=== PATIENT | male | born 1960 | race Caucasian/White ===

== ENCOUNTER → 2016-12-05 | Outpatient (CLI) | payer BC ==
[2016-12-05 07:59] LABS: ALT 52 U/L (21-72); AST 31 U/L (17-59); Alkaline Phosphatase 174 U/L (38-126); Anion Gap 11 mmol/L; Blood Urea Nitrogen 20 mg/dL (9-20); Carbon Dioxide 28 mmol/L (22-30); Chloride 105 mmol/L (98-107); Cholesterol 115 mg/dL (<200); Glucose 219 mg/dL (74-99); HDL Cholesterol 37 mg/dL (40-60); Non-African American GFR(MDRD) >60 (>60 ml/min/1.73 sqM); Potassium 4.7 mmol/L (3.5-5.1); Sodium 144 mmol/L (137-145); Total Bilirubin 0.4 mg/dL (0.2-1.3); Total Protein 6.2 g/dL (6.3-8.2); Triglycerides 193 mg/dL (<150)
== END | disposition home or self-care (01) ==
LOC: LABWHC1 07:05
PROVIDERS: ATTEND Internal Medicine Gastroenterology
DX: R94.5 Abnormal results of liver function studies (principal)
CPT/HCPCS: 36415; 80053; 80061

== ENCOUNTER → 2017-01-19 | Outpatient (CLI) | payer BC ==
[2017-01-19 15:30] LABS: Basophils # (A) 0.1 k/uL (0-0.2); Basophils % (A) 1 %; CH 30.6; CHCM 32.3; Eosinophils # (A) 0.3 k/uL (0-0.7); Eosinophils % (A) 3 %; HCT 41.7 % (39.0-53.0); HGB 13.1 gm/dL (13.0-17.5); Luc # (Auto) 0.43; Luc % (Auto) 4; Lymphocytes # (A) 1.9 k/uL (1.0-4.8); Lymphocytes % (A) 19 %; MCHC 31.5 g/dL (31.0-37.0); MCV 95.2 fL (80.0-100.0); Mean Platelet Volume 7.7; Monocytes # (A) 0.4 k/uL (0-1.0); Monocytes % (A) 4 %; Neutrophils # (A) 6.9 k/uL (1.3-7.7); Neutrophils % (A) 69 %; RBC 4.38 m/uL (4.30-5.90); RDW 13.4 % (11.5-15.5); WBC (Perox) 10.24
[2017-01-19 15:41] LABS: Anion Gap 10 mmol/L; Blood Urea Nitrogen 23 mg/dL (9-20); Carbon Dioxide 28 mmol/L (22-30); Chloride 102 mmol/L (98-107); Non-African American GFR(MDRD) >60 (>60 ml/min/1.73 sqM); Potassium 4.8 mmol/L (3.5-5.1); Sodium 140 mmol/L (137-145)
[2017-01-19 15:48] LABS: Partial Thromboplastin Time 26.1 sec (22.0-30.0); Prothrombin Time 10.1 sec (9.0-12.0)
[2017-01-19 15:55] LABS: Appearance,Urine Clear (Clear); Bilirubin,Urine Negative (Negative); Glucose,Urine (UA) 4+ (Negative); Ketones,Urine Negative (Negative); Leukocyte Esterase,Urine Negative (Negative); Nitrite,Urine Negative (Negative); Protein,Urine Negative (Negative); UA Billing (MACRO vs. MICRO) CHEM; Urobilinogen,Urine <2.0 mg/dL (<2.0)
--- NOTE | 2017-01-19 15:57 | XR ---
EXAMINATION TYPE: XR chest 2V DATE OF EXAM: 01/19/2017 3:46 PM COMPARISON: 09/29/2016 TECHNIQUE: PA and lateral views submitted. HISTORY: Preop FINDINGS: The lungs are clear and there is no pneumothorax, pleural effusion, or focal pneumonia. Hyperinflati on compatible COPD and coarsened interstitial pattern compatible with chronic interstitial pulmonary fibrosis. Stimulator device appears to be present with multiple locations. Surgical clips right upper quadrant. IMPRESSION: 1. Extensive emphysematous changes and findings suggestive of pulmonary fibrosis.
== END | disposition home or self-care (01) ==
LOC: LABPAT 14:57
PROVIDERS: ATTEND Surgery
DX: Z01.818 Encounter for other preprocedural examination (principal); Z79.899 Other long term (current) drug therapy; E10.9 Type 1 diabetes mellitus without complications; J84.10 Pulmonary fibrosis, unspecified
CPT/HCPCS: 36415; 71020; 80051; 81003; 82565; 84520; 85025; 85610; 85730; 86850; 86900; 86901

== ENCOUNTER 2017-03-15 06:27 | Emergency (ER) | payer BC, MEDICARE ==
[2017-03-15 06:34] VITALS: BP 143/75; PULSE 105; RESP 18; TEMP 97
[2017-03-15] MEDS ORDERED: SULFAMETHOX-TMP 800-160MG 1 EACH TAB PO STA (06:51)
--- NOTE | 2017-03-15 07:00 | ED ---
General Adult HPI - General Chief complaint: Abdominal Pain Stated complaint: abd pain Time Seen by Provider: 03/15/17 06:42 Source: patient, family, RN notes reviewed Mode of arrival: wheelchair Limitations: no limitations - History of Present Illness Initial comments: Patient is a pleasant 56-year-old male presenting to the emergency Department with left scrotal pain. Patient states symptoms started a couple of days ago. Symptoms were somewhat worse today and then it started bleeding and draining this morning. No fever. No redness. No history of similar symptoms previously. No trauma to this region. - Related Data Home Medications Medication Instructions Recorded Confirmed Baclofen [Lioresal] 10 mg PO Q8H PRN 03/06/14 03/15/17 Multivitamin [Men's Multi-Vitamin] 1 tab PO DAILY 03/06/14 03/15/17 Tiotropium [place] [Spiriva] 18 mcg INHALATION RT-DAILY 03/06/14 03/15/17 Ipratropium-Albuterol Nebulize 3 ml INHALATION RT-QID PRN 10/08/15 03/15/17 [Duoneb 0.5 mg-3 mg/3 ml Soln] Cholecalciferol [Vitamin D3] 2,000 unit PO DAILY 02/22/16 03/15/17 Clopidogrel [Plavix] 75 mg PO DAILY 02/22/16 03/15/17 buPROPion HCL [Wellbutrin SR] 150 mg PO BID 02/22/16 03/15/17 Metoprolol Tartrate [Metoprolol 12.5 mg PO DAILY 02/23/16 03/15/17 Tartrate] Omeprazole [PriLOSEC] 20 mg PO DAILY 02/23/16 03/15/17 oxyCODONE HCL [oxyCODONE HCL] 10 mg PO BID PRN 02/23/16 03/15/17 Albuterol Inhaler [Ventolin Hfa 2 puff INHALATION RT-Q6H PRN 09/29/16 03/15/17 Inhaler] Dicyclomine [Bentyl] 10 mg PO QID PRN 09/29/16 03/15/17 Morphine Sulfate [Vivien] 50 mg PO BID 09/29/16 03/15/17 INSULIN LISPRO (For Pump) [humaLOG 0.01 units SQ-PUMP CONTINUOUS 10/29/16 (For Pump)] Aspirin 81 mg PO DAILY 01/19/17 03/15/17 Previous Rx's Medication Instructions Recorded Pregabalin [Lyrica] 150 mg PO BID #20 capsule 08/03/15 Sulfamethox-Tmp 800-160Mg [Bactrim 2 each PO Q12HR #40 tab 03/15/17 DS 800-160 mg] Allergies Allergy/AdvReac Type Severity Reaction Status Date / Time No Known Allergies Allergy Verified 03/15/17 06:33 Review of Systems ROS Statement: Those systems with pertinent positive or pertinent negative responses have been documented in the HPI. ROS Other: All systems not noted in ROS Statement are negative. Constitutional: Denies: fever, chills Eyes: Denies: eye pain ENT: Denies: ear pain Respiratory: Denies: cough Cardiovascular: Denies: chest pain Endocrine: Denies: fatigue Gastrointestinal: Denies: abdominal pain Genitourinary: Denies: dysuria Musculoskeletal: Denies: back pain Skin: Reports: lesions Neurological: Denies: headache Past Medical History Past Medical History: Coronary Artery Disease (CAD), Heart Failure, COPD, Diabetes Mellitus, GI Bleed, Hyperlipidemia, Hypertension, Osteoarthritis (OA), Pneumonia, Pulmonary Embolus (PE), Renal Disease, Respiratory Disorder, Vascular Disorder Additional Past Medical History / Comment(s): hx. 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 History of Any Multi-Drug Resistant Organisms: None Reported Past Surgical History: Back Surgery, Cholecystectomy, Heart Catheterization, Heart Catheterization With Stent Additional Past Surgical History / Comment(s): EGD's, 07/26/15 IVC filter, BACK STIMULATORS x 2 -cervical and lumbar,FEMORAL BYPASS RT LEG X3, metal chips removed from bilateral eyes Past Anesthesia/Blood Transfusion Reactions: No Reported Reaction Additional Past Anesthesia/Blood Transfusion Reaction / Comment(s): Pt has received blood transfusions without reaction. Date of Last Stent Placement:: 1999 Past Psychological History: Anxiety, Depression Additional Psychological History / Comment(s): Pt lives with his spouse. He is O2 dependent at 3L/NC ATC. He has a cane and walker he uses if needed. Smoking Status: Former smoker Past Alcohol Use History: None Reported Additional Past Alcohol Use History / Comment(s): pt states he quit smoking 2015 Past Drug Use History: None Reported - Past Family History Father History Unknown: Yes Family Medical History: Myocardial Infarction ([place]) Additional Family Medical History / Comment(s): due to heart attack Mother History Unknown: Yes Family Medical History: Cancer Additional Family Medical History / Comment(s): LUNG CANCER General Exam Limitations: no limitations General appearance: alert, in no apparent distress Head exam: Present: atraumatic Respiratory exam: Present: normal lung sounds bilaterally Cardiovascular Exam: Present: regular rate, normal rhythm GI/Abdominal exam: Present: soft. Absent: tenderness exam: Present: circumcision, other (Left anterior scrotum with 1.5 cm open draining superficial abscess. No surrounding erythema. Abscess is limited to the scrotal wall.). Absent: testicular tenderness, urethral discharge Extremities exam: Present: normal inspection Neurological exam: Present: alert Psychiatric exam: Present: normal affect, normal mood Skin exam: Present: other (Left anterior scrotal wall open abscess 1.5 cm) Course Vital Signs 03/15/17 06:29 Temperature 97 F L Pulse Rate 105 H Respiratory 18 Rate Blood Pressure 143/75 O2 Sat by Pulse 93 L Oximetry - Reevaluation(s) Reevaluation #1: 03/15/17 06:59 Patient was warned of potential problems if symptoms worsen and to return immediately for any signs of increased pain, redness, swelling, fevers or other concerns. Disposition Clinical Impression: Scrotal abscess Disposition: HOME SELF-CARE Condition: Stable Instructions: Abscess (ED) Additional Instructions: Please follow-up with primary care physician and urology in the beginning of the week. Return for increased pain, increased swelling, redness, fevers, worsening symptoms or any other concerns. Twice daily wash area with soap and water and bandage. Prescriptions: Sulfamethox-Tmp 800-160Mg [Bactrim DS 800-160 mg] 2 each PO Q12HR #40 tab Referrals: Jamee Bobo MD [Primary Care Provider] - 1-2 days René Pascual MD [STAFF PHYSICIAN] - 1-2 days Time of Disposition: 06:59
== END 2017-03-15 07:10 | disposition home or self-care (01) ==
LOC: EC 06:27
DX: N49.2 Inflammatory disorders of scrotum (principal); I11.0 Hypertensive heart disease with heart failure; I50.9 Heart failure, unspecified; J44.9 Chronic obstructive pulmonary disease, unspecified; M19.90 Unspecified osteoarthritis, unspecified site; E11.9 Type 2 diabetes mellitus without complications; I25.10 Atherosclerotic heart disease of native coronary artery without angina pectoris; F32.9 Major depressive disorder, single episode, unspecified; G89.4 Chronic pain syndrome; Z86.711 Personal history of pulmonary embolism; Z87.891 Personal history of nicotine dependence; Z79.01 Long term (current) use of anticoagulants; Z79.4 Long term (current) use of insulin; Z79.82 Long term (current) use of aspirin; Z79.899 Other long term (current) drug therapy
CPT/HCPCS: 87070; 87077; 87186; 87205; 99283

== ENCOUNTER 2017-04-09 17:38 | Emergency (ER) | payer MEDICARE, OTHER ==
[2017-04-09 17:49] LABS: Glucose,Whole Blood 129 mg/dL (75-99)
[2017-04-09] MEDS ORDERED: SODIUM CHLORIDE 0.9% 1,000 ML IV STA (18:12)
--- NOTE | 2017-04-09 18:18 | ED ---
Recheck HPI - General Chief Complaint: Recheck/Abnormal Lab/Rx Stated Complaint: low blood sugar Time Seen by Provider: 04/09/17 17:48 Source: patient, RN notes reviewed Mode of arrival: EMS Limitations: no limitations - History of Present Illness Initial Comments: Patient is a 56-year-old male presents emergency room for evaluation of low blood sugar. Patient does state he has a history of diabetes. Patient states he has an insulin pump. Patient states he follows up with Dr. Mc for his diabetes management. Patient states last time he saw Dr. Mc was about 3 months ago and his insulin pump was adjusted. Patient states today his blood sugar continued to down trend. Patient states tried to eat toast with no relief of symptoms. Patient states last thing he remembered was sitting on his recliner and then being woke up by EMS. patient's is present with patient. Patient's states that patient's sugar has been down trending throughout the day today. Patient's states that she tried to get patient to eat a peanut butter sandwich patient refused. Patient's states she had patient eat multiple pieces of toast. Patient's states that patient went to go lay down on the recliner and would not wake up so they called EMS. Patient's states that patient's sugars have been on the lower side throughout the past month. Patient denies headache, neck pain, paresthesias, chest pain, shortness of breath, abdominal pain, nausea, vomiting. Patient does state he has history of pulmonary fibrosis. Patient states he is constantly on 3 L of O2. - Related Data Home Medications Medication Instructions Recorded Confirmed Baclofen [Lioresal] 10 mg PO TID PRN 03/06/14 04/09/17 Multivitamin [Men's Multi-Vitamin] 1 tab PO DAILY 03/06/14 04/09/17 Tiotropium [place] [Spiriva] 18 mcg INHALATION RT-DAILY 03/06/14 04/09/17 Ipratropium-Albuterol Nebulize 3 ml INHALATION RT-QID PRN 10/08/15 04/09/17 [Duoneb 0.5 mg-3 mg/3 ml Soln] Cholecalciferol [Vitamin D3] 2,000 unit PO DAILY 02/22/16 04/09/17 Clopidogrel [Plavix] 75 mg PO DAILY 02/22/16 04/09/17 buPROPion HCL [Wellbutrin SR] 150 mg PO BID 02/22/16 04/09/17 Metoprolol Tartrate [Metoprolol 12.5 mg PO DAILY 02/23/16 04/09/17 Tartrate] Omeprazole [PriLOSEC] 20 mg PO DAILY 02/23/16 04/09/17 oxyCODONE HCL [oxyCODONE HCL] 10 mg PO BID PRN 02/23/16 04/09/17 Albuterol Inhaler [Ventolin Hfa 2 puff INHALATION RT-Q6H PRN 09/29/16 04/09/17 Inhaler] Morphine Sulfate [Vivien] 50 mg PO BID 09/29/16 04/09/17 INSULIN LISPRO (For Pump) [humaLOG 0.01 units SQ-PUMP CONTINUOUS 10/29/16 (For Pump)] Aspirin 81 mg PO DAILY 01/19/17 04/09/17 Previous Rx's Medication Instructions Recorded Pregabalin [Lyrica] 150 mg PO BID #20 capsule 08/03/15 Allergies Allergy/AdvReac Type Severity Reaction Status Date / Time No Known Allergies Allergy Verified 04/09/17 18:19 Review of Systems ROS Statement: Those systems with pertinent positive or pertinent negative responses have been documented in the HPI. ROS Other: All systems not noted in ROS Statement are negative. Past Medical History Past Medical History: Coronary Artery Disease (CAD), Heart Failure, COPD, Diabetes Mellitus, GI Bleed, Hyperlipidemia, Hypertension, Osteoarthritis (OA), Pneumonia, Pulmonary Embolus (PE), Renal Disease, Respiratory Disorder, Vascular Disorder Additional Past Medical History / Comment(s): hx. 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 History of Any Multi-Drug Resistant Organisms: MRSA Date of last positivie culture/infection: 03/15/17 MDRO Source:: genital Past Surgical History: Back Surgery, Cholecystectomy, Heart Catheterization, Heart Catheterization With Stent Additional Past Surgical History / Comment(s): EGD's, 07/26/15 IVC filter, BACK STIMULATORS x 2 -cervical and lumbar,FEMORAL BYPASS RT LEG X3, metal chips removed from bilateral eyes Past Anesthesia/Blood Transfusion Reactions: No Reported Reaction Additional Past Anesthesia/Blood Transfusion Reaction / Comment(s): Pt has received blood transfusions without reaction. Date of Last Stent Placement:: 1999 Past Psychological History: Anxiety, Depression Additional Psychological History / Comment(s): Pt lives with his spouse. He is O2 dependent at 3L/NC ATC. He has a cane and walker he uses if needed. Smoking Status: Former smoker Past Alcohol Use History: None Reported Additional Past Alcohol Use History / Comment(s): pt states he quit smoking 2015 Past Drug Use History: None Reported - Past Family History Father History Unknown: Yes Family Medical History: Myocardial Infarction ([place]) Additional Family Medical History / Comment(s): due to heart attack Mother History Unknown: Yes Family Medical History: Cancer Additional Family Medical History / Comment(s): LUNG CANCER General Exam - General Exam Comments Initial Comments: sitting in exam room, no distress. Limitations: no limitations General appearance: alert, in no apparent distress Head exam: Present: atraumatic, normocephalic, normal inspection Eye exam: Present: normal appearance ENT exam: Present: normal exam Neck exam: Present: normal inspection Respiratory exam: Present: decreased breath sounds. Absent: respiratory distress Cardiovascular Exam: Present: regular rate, normal rhythm, normal heart sounds GI/Abdominal exam: Present: soft, normal bowel sounds. Absent: distended, tenderness, guarding, rebound, rigid exam: Present: normal inspection Extremities exam: Present: normal inspection Back exam: Present: normal inspection Neurological exam: Present: alert, oriented X3, CN II-XII intact, normal gait Psychiatric exam: Present: normal affect, normal mood Skin exam: Present: warm, dry, intact, normal color. Absent: rash Course Vital Signs 04/09/17 04/09/17 17:39 19:13 Temperature 97.8 F Pulse Rate 81 78 Respiratory 18 17 Rate Blood Pressure 181/77 146/69 O2 Sat by Pulse 97 100 Oximetry Medical Decision Making - Medical Decision Making Patient is a 56-year-old male presents emergency room for evaluation of hypoglycemia. Patient's glucose increased as he got here. patient's glucose level now at 401. Patient advised to turn back on his pump and gave himself a bolus. Advised patient to follow-up with Dr. Mc for possible readjustment of insulin pump. Patient states he understands everything that was discussed with him. Return parameters discussed. Case discussed Dr. Jauregui. - Lab Data Result diagrams: 04/09/17 18:47 04/09/17 18:47 Lab Results 04/09/17 04/09/17 04/09/17 Range/Units 17:45 18:47 18:47 WBC 9.6 (3.8-10.6) k/uL RBC 3.81 L (4.30-5.90) m/uL Hgb 12.0 L (13.0-17.5) gm/dL Hct 36.9 L (39.0-53.0) % MCV 97.0 (80.0-100.0) fL MCH 31.4 (25.0-35.0) pg MCHC 32.4 (31.0-37.0) g/dL RDW 14.8 (11.5-15.5) % Plt Count 235 (150-450) k/uL Neutrophils % 83 % Lymphocytes % 9 % Monocytes % 4 % Eosinophils % 1 % Basophils % 0 % Neutrophils # 8.0 H (1.3-7.7) k/uL Lymphocytes # 0.9 L (1.0-4.8) k/uL Monocytes # 0.4 (0-1.0) k/uL Eosinophils # 0.1 (0-0.7) k/uL Basophils # 0.0 (0-0.2) k/uL PT (9.0-12.0) sec INR (<1.1) APTT (22.0-30.0) sec Sodium (137-145) mmol/L Potassium (3.5-5.1) mmol/L Chloride (98-107) mmol/L Carbon Dioxide (22-30) mmol/L Anion Gap mmol/L BUN (9-20) mg/dL Creatinine (0.66-1.25) mg/dL Est GFR (MDRD) Af Amer (>60 ml/min/1.73 sqM) Est GFR (MDRD) Non-Af (>60 ml/min/1.73 sqM) Glucose (74-99) mg/dL POC Glucose (mg/dL) 129 H (75-99) mg/dL POC Glu Sap Bw Developer ID [place] Khan Calcium (8.4-10.2) mg/dL Magnesium (1.6-2.3) mg/dL Total Bilirubin (0.2-1.3) mg/dL AST (17-59) U/L ALT (21-72) U/L Alkaline Phosphatase (38-126) U/L Total Creatine Kinase 55 (55-170) U/L CK-MB (CK-2) 2.4 (0.0-2.4) ng/mL CK-MB (CK-2) Rel Index 4.4 Troponin I <0.012 (0.000-0.034) ng/mL Total Protein (6.3-8.2) g/dL Albumin (3.5-5.0) g/dL 04/09/17 04/09/17 04/09/17 Range/Units 18:47 18:47 19:30 WBC (3.8-10.6) k/uL RBC (4.30-5.90) m/uL Hgb (13.0-17.5) gm/dL Hct (39.0-53.0) % MCV (80.0-100.0) fL MCH (25.0-35.0) pg MCHC (31.0-37.0) g/dL RDW (11.5-15.5) % Plt Count (150-450) k/uL Neutrophils % % Lymphocytes % % Monocytes % % Eosinophils % % Basophils % % Neutrophils # (1.3-7.7) k/uL Lymphocytes # (1.0-4.8) k/uL Monocytes # (0-1.0) k/uL Eosinophils # (0-0.7) k/uL Basophils # (0-0.2) k/uL PT 10.2 (9.0-12.0) sec INR 1.0 (<1.1) APTT 24.9 (22.0-30.0) sec Sodium 139 (137-145) mmol/L Potassium 4.2 (3.5-5.1) mmol/L Chloride 104 (98-107) mmol/L Carbon Dioxide 26 (22-30) mmol/L Anion Gap 9 mmol/L BUN 22 H (9-20) mg/dL Creatinine 0.75 (0.66-1.25) mg/dL Est GFR (MDRD) Af Amer >60 (>60 ml/min/1.73 sqM) Est GFR (MDRD) Non-Af >60 (>60 ml/min/1.73 sqM) Glucose 210 H (74-99) mg/dL POC Glucose (mg/dL) 333 H (75-99) mg/dL POC Glu Sap Bw Developer ID Calcium 8.7 (8.4-10.2) mg/dL Magnesium 2.1 (1.6-2.3) mg/dL Total Bilirubin 0.5 (0.2-1.3) mg/dL AST 39 (17-59) U/L ALT 54 (21-72) U/L Alkaline Phosphatase 213 H (38-126) U/L Total Creatine Kinase (55-170) U/L CK-MB (CK-2) (0.0-2.4) ng/mL CK-MB (CK-2) Rel Index Troponin I (0.000-0.034) ng/mL Total Protein 6.5 (6.3-8.2) g/dL Albumin 3.9 (3.5-5.0) g/dL 04/09/17 04/09/17 Range/Units 20:03 20:27 WBC (3.8-10.6) k/uL RBC (4.30-5.90) m/uL Hgb (13.0-17.5) gm/dL Hct (39.0-53.0) % MCV (80.0-100.0) fL MCH (25.0-35.0) pg MCHC (31.0-37.0) g/dL RDW (11.5-15.5) % Plt Count (150-450) k/uL Neutrophils % % Lymphocytes % % Monocytes % % Eosinophils % % Basophils % % Neutrophils # (1.3-7.7) k/uL Lymphocytes # (1.0-4.8) k/uL Monocytes # (0-1.0) k/uL Eosinophils # (0-0.7) k/uL Basophils # (0-0.2) k/uL PT (9.0-12.0) sec INR (<1.1) APTT (22.0-30.0) sec Sodium (137-145) mmol/L Potassium (3.5-5.1) mmol/L Chloride (98-107) mmol/L Carbon Dioxide (22-30) mmol/L Anion Gap mmol/L BUN (9-20) mg/dL Creatinine (0.66-1.25) mg/dL Est GFR (MDRD) Af Amer (>60 ml/min/1.73 sqM) Est GFR (MDRD) Non-Af (>60 ml/min/1.73 sqM) Glucose (74-99) mg/dL POC Glucose (mg/dL) 393 H 401 H (75-99) mg/dL POC Glu Sap Bw Developer ID Calcium (8.4-10.2) mg/dL Magnesium (1.6-2.3) mg/dL Total Bilirubin (0.2-1.3) mg/dL AST (17-59) U/L ALT (21-72) U/L Alkaline Phosphatase (38-126) U/L Total Creatine Kinase (55-170) U/L CK-MB (CK-2) (0.0-2.4) ng/mL CK-MB (CK-2) Rel Index Troponin I (0.000-0.034) ng/mL Total Protein (6.3-8.2) g/dL Albumin (3.5-5.0) g/dL 04/09/17 18:26 normal sinus rhythm, ventricular rate 72 bpm, DC interval 162 ms, QRS duration 110 ms, QT/QTC 392/429 ms Disposition Clinical Impression: Uncontrolled blood glucose Disposition: HOME SELF-CARE Condition: Good Instructions: Hypoglycemia in a Person with Diabetes (ED), Diabetic Hyperglycemia (ED) Additional Instructions: Please follow up with primary care provider in 1-2 days. If any new symptom arises or symptoms worsen, return to ER as soon as possible. Referrals: Jamee Bobo MD [Primary Care Provider] - 1-2 days Time of Disposition: 20:44
[2017-04-09 18:55] LABS: Basophils % (A) 0 %; CHCM 32.2; Eosinophils # (A) 0.1 k/uL (0-0.7); Eosinophils % (A) 1 %; HCT 36.9 % (39.0-53.0); Luc # (Auto) 0.21; Luc % (Auto) 2; Lymphocytes # (A) 0.9 k/uL (1.0-4.8); Lymphocytes % (A) 9 %; MCH 31.4 pg (25.0-35.0); MCHC 32.4 g/dL (31.0-37.0); Mean Platelet Volume 7.5; Monocytes # (A) 0.4 k/uL (0-1.0); Monocytes % (A) 4 %; Neutrophils % (A) 83 %; RBC 3.81 m/uL (4.30-5.90); RDW 14.8 % (11.5-15.5); WBC 9.6 k/uL (3.8-10.6); WBC (Perox) 10.27
[2017-04-09 19:05] LABS: ALT 54 U/L (21-72); AST 39 U/L (17-59); Alkaline Phosphatase 213 U/L (38-126); Anion Gap 9 mmol/L; Blood Urea Nitrogen 22 mg/dL (9-20); Calcium 8.7 mg/dL (8.4-10.2); Carbon Dioxide 26 mmol/L (22-30); Chloride 104 mmol/L (98-107); Glucose 210 mg/dL (74-99); Magnesium 2.1 mg/dL (1.6-2.3); Non-African American GFR(MDRD) >60 (>60 ml/min/1.73 sqM); Potassium 4.2 mmol/L (3.5-5.1); Sodium 139 mmol/L (137-145); Total Bilirubin 0.5 mg/dL (0.2-1.3); Total Protein 6.5 g/dL (6.3-8.2)
[2017-04-09 19:14] LABS: Creatine Kinase 55 U/L (55-170)
[2017-04-09 19:18] LABS: Partial Thromboplastin Time 24.9 sec (22.0-30.0); Prothrombin Time 10.2 sec (9.0-12.0)
[2017-04-09 19:26] LABS: Creatine Kinase MB 2.4 ng/mL (0.0-2.4); Troponin I <0.012 ng/mL (0.000-0.034)
[2017-04-09 19:46] LABS: Glucose,Whole Blood 333 mg/dL (75-99)
[2017-04-09 20:19] LABS: Glucose,Whole Blood 393 mg/dL (75-99)
[2017-04-09 20:30] LABS: Glucose,Whole Blood 401 mg/dL (75-99)
[2017-04-09 21:00] VITALS: BP 108/58; PULSE 86; RESP 18; TEMP 97.9
== END 2017-04-09 20:55 | disposition home or self-care (01) ==
LOC: EC 17:38
DX: E11.649 Type 2 diabetes mellitus with hypoglycemia without coma (principal); M19.90 Unspecified osteoarthritis, unspecified site; J44.9 Chronic obstructive pulmonary disease, unspecified; I11.0 Hypertensive heart disease with heart failure; I50.9 Heart failure, unspecified; F32.9 Major depressive disorder, single episode, unspecified; Z86.711 Personal history of pulmonary embolism; Z87.891 Personal history of nicotine dependence; Z79.4 Long term (current) use of insulin; Z79.82 Long term (current) use of aspirin; Z79.51 Long term (current) use of inhaled steroids; Z79.02 Long term (current) use of antithrombotics/antiplatelets; Z79.899 Other long term (current) drug therapy
CPT/HCPCS: 36415; 80053; 82550; 82553; 83735; 84484; 85025; 85610; 85730; 93005; 96360; 99284

== ENCOUNTER → 2017-05-27 | Outpatient (CLI) | payer MEDICARE ==
[2017-05-27 12:40] LABS: ALT 29 U/L (21-72); AST 24 U/L (17-59); Alkaline Phosphatase 147 U/L (38-126); Anion Gap 11 mmol/L; Blood Urea Nitrogen 17 mg/dL (9-20); Calcium 8.8 mg/dL (8.4-10.2); Carbon Dioxide 25 mmol/L (22-30); Chloride 102 mmol/L (98-107); Glucose 298 mg/dL (74-99); Non-African American GFR(MDRD) >60 (>60 ml/min/1.73 sqM); Potassium 4.8 mmol/L (3.5-5.1); Sodium 138 mmol/L (137-145); Total Bilirubin 0.4 mg/dL (0.2-1.3); Total Protein 6.1 g/dL (6.3-8.2)
== END | disposition home or self-care (01) ==
LOC: LABWHC1 11:35
PROVIDERS: ATTEND Internal Medicine Gastroenterology
DX: R94.5 Abnormal results of liver function studies (principal)
CPT/HCPCS: 36415; 80053

== ENCOUNTER → 2017-06-17 | Outpatient (CLI) | payer MEDICARE ==
[2017-06-17 08:29] LABS: Blood Urea Nitrogen 17 mg/dL (9-20); Non-African American GFR(MDRD) >60 (>60 ml/min/1.73 sqM)
--- NOTE | 2017-06-17 14:10 | CT ---
EXAMINATION TYPE: CT abdomen w con DATE OF EXAM: 06/17/2017 COMPARISON: 10/29/2016 HISTORY: Mass on liver CT DLP: 848.5 mGycm CONTRAST: CT scan of the abdomen is performed with Oral Contrast and with IV Contrast, patient injected with 1 00 mL of Omnipaque 300. FINDINGS: LUNG BASES-: No visible nodule. No infiltrate. Basilar fibrosis noted. Left basilar pneumatocele ashley ntified. LIVER/GB: The gallbladder surgically absent. 1.3 cm hemangioma lateral segment the left hepatic lob e. No additional space-occupying lesions identified. There is mild change of hepatic steatosis. PANCREAS: No inflammation. No distinct mass. SPLEEN: No splenic enlargement. No lesion seen. ADRENALS: No nodule. No thickening. KIDNEYS/BLADDER: No hydronephrosis. 4 mm nonobstructing calculus mid to upper pole left kidney. No d isctinct renal mass. Urinary bladder grossly unremarkable. BOWEL: Visualized gastrointestinal tract is of normal caliber. Moderate stasis identified scattered t hroughout the colon. LYMPH NODES: No greater than 1cm abdominal or pelvic lymph nodes are appreciated. AORTA: No significant abnormality. OSSEOUS STRUCTURES: No significant abnormality is seen. OTHER: IVC filter identified in place. IMPRESSION: 1. 1.3 cm hepatic hemangioma. 2. Pulmonary fibrosis. 3. Nonobstructing calculus left kidney. 4. Moderate fecal stasis.
== END | disposition home or self-care (01) ==
LOC: RADCTMAIN 07:44
PROVIDERS: ATTEND Internal Medicine Gastroenterology
DX: D18.03 Hemangioma of intra-abdominal structures (principal); N20.0 Calculus of kidney
CPT/HCPCS: 82565; 84520; 74160; 36415; Q9967

== ENCOUNTER → 2017-12-03 | Outpatient (CLI) | payer MEDICARE ==
[2017-12-03 15:08] LABS: ALT 43 U/L (21-72); AST 30 U/L (17-59); Albumin 3.8 g/dL (3.5-5.0); Alkaline Phosphatase 175 U/L (38-126); Anion Gap 9 mmol/L; Blood Urea Nitrogen 23 mg/dL (9-20); Calcium 9.2 mg/dL (8.4-10.2); Carbon Dioxide 28 mmol/L (22-30); Chloride 102 mmol/L (98-107); Glucose 197 mg/dL (74-99); Potassium 5.4 mmol/L (3.5-5.1); Sodium 139 mmol/L (137-145); Total Bilirubin 0.3 mg/dL (0.2-1.3); Total Protein 6.3 g/dL (6.3-8.2)
== END | disposition home or self-care (01) ==
LOC: LABWHC1 14:26
PROVIDERS: ATTEND Internal Medicine Gastroenterology
DX: R94.5 Abnormal results of liver function studies (principal)
CPT/HCPCS: 36415; 80053

== ENCOUNTER → 2018-01-20 | Outpatient (CLI) | payer MEDICARE ==
[2018-01-20 11:06] LABS: Basophils # (A) 0.1 k/uL (0-0.2); Basophils % (A) 1 %; Eosinophils # (A) 0.2 k/uL (0-0.7); Eosinophils % (A) 2 %; HCT 42.3 % (39.0-53.0); HGB 13.8 gm/dL (13.0-17.5); Lymphocytes # (A) 1.3 k/uL (1.0-4.8); Lymphocytes % (A) 12 %; MCH 30.4 pg (25.0-35.0); MCHC 32.5 g/dL (31.0-37.0); MCV 93.6 fL (80.0-100.0); Mean Platelet Volume 7.5; Monocytes # (A) 0.5 k/uL (0-1.0); Monocytes % (A) 5 %; Neutrophils # (A) 8.4 k/uL (1.3-7.7); Neutrophils % (A) 78 %; Platelet Count 293 k/uL (150-450); RBC 4.52 m/uL (4.30-5.90); RDW 13.2 % (11.5-15.5); WBC 10.7 k/uL (3.8-10.6)
[2018-01-20 11:20] LABS: ALT 45 U/L (21-72); AST 34 U/L (17-59); Alkaline Phosphatase 199 U/L (38-126); Anion Gap 10 mmol/L; Blood Urea Nitrogen 23 mg/dL (9-20); Calcium 9.5 mg/dL (8.4-10.2); Carbon Dioxide 28 mmol/L (22-30); Chloride 103 mmol/L (98-107); Cholesterol 130 mg/dL (<200); Glucose 196 mg/dL (74-99); HDL Cholesterol 37 mg/dL (40-60); LDL Cholesterol,Calculated 63 mg/dL (0-99); Sodium 141 mmol/L (137-145); Total Bilirubin 0.4 mg/dL (0.2-1.3); Total Protein 6.5 g/dL (6.3-8.2); Triglycerides 151 mg/dL (<150)
[2018-01-20 19:35] LABS: Hemoglobin A1C 7.5 % (4.0-6.0)
== END | disposition home or self-care (01) ==
LOC: LABWHC1 10:17
PROVIDERS: ATTEND Family Medicine
DX: E10.42 Type 1 diabetes mellitus with diabetic polyneuropathy (principal); I25.10 Atherosclerotic heart disease of native coronary artery without angina pectoris
CPT/HCPCS: 36415; 80053; 80061; 82043; 82570; 82607; 83036; 85025

== ENCOUNTER → 2018-05-14 | Outpatient (CLI) | payer MEDICARE ==
--- NOTE | 2018-05-14 14:29 | CT ---
EXAMINATION TYPE: CT lumbar spine wo con DATE OF EXAM: 05/14/2018 2:01 PM COMPARISON: Previous study dated 06/02/2014. HISTORY: Low back pain CT DLP: 464.40 mGycm Automated exposure control for dose reduction was used. Unenhanced CT of the lumbar spine was performed. Bone and soft tissue window settings are submitted as well as coronal and sagittal reconstructions. FINDINGS: There is emphysematous change and coarse interstitial fibrosis involving the visualized por tions of the lungs. There is a large bleb in the posterior basal segment of the left lower lobe. Bilateral renal calculi which are nonobstructing. The largest on the right is 3.4 mm. The largest on the left is 7.2 mm. There is moderate atheromatous change in the visualized arterial tree most marked in the right common iliac artery. There is an inferior vena cava filter in place. Paraspinal soft ti ssues are otherwise unremarkable. Vertebral body height and alignment are maintained. There is no spondylolysis or spondylolisthesis. T he disc spaces are reasonably well-maintained. T12-L1, the intervertebral foramina are widely maintained. There is no significant compressive discop athy the facets are unremarkable. L1-L2: There is no significant compressive discopathy. Intervertebral foramina are widely maintained. There is mild facet arthropathy. L2-L3: The intervertebral foramina are well maintained. There is no significant compressive discopath y. There is mild facet arthropathy. L3-L4: The intervertebral foramina are widely maintained. There is a diffuse disc displacement. There is mild facet arthropathy. L4-L5: Intervertebral foramina are widely maintained. There is a diffuse disc displacement. There is mild facet arthropathy. L5-S1: The intervertebral foramina are widely maintained. There is a diffuse disc displacement. There is mild facet arthropathy. IMPRESSION: 1. NO SIGNIFICANT COMPRESSIVE DISCOPATHY. 2. MILD, DIFFUSE FACET ARTHROPATHY. 3. MILD DEGENERATIVE DISC DISEASE, L3-4 THROUGH TO L5-S1.
--- NOTE | 2018-05-14 14:36 | CT ---
EXAMINATION TYPE: CT cervical spine wo con DATE OF EXAM: 05/14/2018 COMPARISON: None. HISTORY: Cervicalgia CT DLP: 330.30 mGycm Automated exposure control for dose reduction was used. TECHNIQUE: CT scan of the cervical spine is obtained without contrast, axial images are obtained, sa gittal and coronal reformatted images are also reviewed. FINDINGS: There are diffuse emphysematous changes throughout the visualized portions of the lungs. Th ere is a linear opacity within the trachea which may represent mucous. Prevertebral soft tissues are normal. There is a pain stimulator in place throughout the cervical region. There is a reversal of the normal cervical lordosis. Vertebral body height and alignment are maintained. Atlantoaxial relationships are normal. At C2-3, there is mild left-sided intervertebral foraminal narrowing. There is left-sided facet arthr opathy. There is no significant compressive discopathy. At C3-4, there is left-sided intervertebral foraminal narrowing. There is bilateral facet arthropathy , worse on the left than the right. There is no significant compressive discopathy. There is mild unc overtebral joint disease. At C4-5, there is left-sided intervertebral foraminal narrowing. There is significant left-sided face t arthropathy. There is no significant compressive discopathy. The uncovertebral joints are unremarka ble. At C5-6, there is mild disc space loss and hypertrophic spondylosis. There is left-sided intervertebr al foraminal narrowing. There is mild, bilateral facet arthropathy, worse on the left than the right. There is mild uncovertebral joint disease. There is no significant compressive discopathy. At C6-7, there is severe disc space loss and hypertrophic spondylosis. There is bilateral interverteb ral foraminal narrowing, worse on the right than the left. There is mild facet arthropathy. There is significant uncovertebral joint disease. There is no significant compressive discopathy. At C7-T1, no significant abnormality is seen. IMPRESSION: 1. SEVERE EMPHYSEMATOUS CHANGE. 2. POSTSURGICAL CHANGE. 3. DIFFUSE FACET ARTHROPATHY. 4. MULTILEVEL INTERVERTEBRAL FORAMINAL NARROWING. 5. DISC SPACE LOSS AND HYPERTROPHIC SPONDYLOSIS, C5-6 AND C6-7.
== END | disposition home or self-care (01) ==
LOC: RADCTMAIN 13:06
PROVIDERS: ATTEND Physician Assistant
DX: M99.71 Connective tissue and disc stenosis of intervertebral foramina of cervical region (principal); M47.812 Spondylosis without myelopathy or radiculopathy, cervical region; M46.82 Other specified inflammatory spondylopathies, cervical region; M51.37 Other intervertebral disc degeneration, lumbosacral region; M46.86 Other specified inflammatory spondylopathies, lumbar region
CPT/HCPCS: 72125; 72131

== ENCOUNTER → 2018-06-02 | Outpatient (CLI) | payer MEDICARE | END | disposition home or self-care (01) | LOC: LABWHC1 07:19 | PROVIDERS: ATTEND Internal Medicine Endocrinology, Diabetes & Metabolism | DX: E10.65 Type 1 diabetes mellitus with hyperglycemia (principal) | CPT/HCPCS: 36415; 82947; 84681 ==

== ENCOUNTER → 2020-08-29 | Outpatient (CLI) | payer MEDICARE ==
[2020-08-29 16:11] LABS: African American GFR (CKD) 113.3 (60.0-200.0); Albumin 3.8 g/dL (3.80-4.90); Albumin/Globulin Ratio 1.73 (1.60-3.17); Anion Gap 13.9 mmol/L (4.00-12.00); BUN/Creat Ratio 17.5 Ratio (12.00-20.00); Carbon Dioxide 20.1 mmol/L (21.6-31.8); Chol/HDL Ratio 4.74; Globulin 2.2 g/dL (1.6-3.3); LDL Cholesterol,Calculated 117.6 mg/dL (0.0-131.0); Non-African American GFR(CKD) 97.8 (60.0-200.0); Potassium 4.8 mmol/L (3.5-5.5); Total Bilirubin 0.4 mg/dL (0.2-1.2); VLDL Calculation 28.4 mg/dL (5.00-40.00)
[2020-08-29 17:00] LABS: Urine Creatinine 223.2 mg/dL
[2020-08-29 17:55] LABS: Hemoglobin A1C 8.1 % (4.0-6.0)
== END | disposition home or self-care (01) ==
LOC: LABWHC1 09:12
PROVIDERS: ATTEND Internal Medicine Endocrinology, Diabetes & Metabolism
DX: E10.65 Type 1 diabetes mellitus with hyperglycemia (principal)
CPT/HCPCS: 36415; 80053; 80061; 82043; 82570; 83036; 84443

== ENCOUNTER → 2020-08-31 | Outpatient (CLI) | payer MEDICARE | END | disposition home or self-care (01) | LOC: LABWHC1 13:00 | PROVIDERS: ATTEND Internal Medicine Endocrinology, Diabetes & Metabolism | DX: E10.65 Type 1 diabetes mellitus with hyperglycemia (principal) | CPT/HCPCS: 36415; 84443 ==

== ENCOUNTER 2021-03-22 14:39 | Inpatient (IN) | payer MEDICARE ==
[2021-03-22 14:54] LABS: Glucose,Whole Blood >600 mg/dL (75-99)
[2021-03-22] MEDS ORDERED: SODIUM CHLORIDE 0.9% 1,000 ML IV STA ×3 (15:24→15:35)
[2021-03-22] MEDS ORDERED: METOCLOPRAMIDE 5 MG/ML 2 ML VIAL IVP STA (15:24)
[2021-03-22] MEDS ORDERED: PANTOPRAZOLE 40 MG/10 ML VIAL IVP STA (15:25)
[2021-03-22] MEDS ORDERED: MORPHINE SULFATE 4 MG/ML SYRINGE IV STA (15:35)
--- NOTE | 2021-03-22 15:53 | ED ---
General Adult HPI - General Chief complaint: Recheck/Abnormal Lab/Rx Stated complaint: High Blood sugar Time Seen by Provider: 03/22/21 15:17 Source: patient, EMS Mode of arrival: EMS Limitations: no limitations - History of Present Illness Initial comments: This 60-year-old male presents with a complaint of nausea, vomiting, and diarrhea. He states that it started at approximately 4 AM today. The also is a diabetic and has an insulin pump. They found his blood sugar to register as high per EMS as well as initially in the emergency department. He also complains of some midsternal chest pain. In addition, he complains of some rectal bleeding. He denies any abdominal pain. He apparently does have chronic pain problems and has been unable to keep down his medications. No other complaints or modifying factors. He denies change in his chronic shortness of breath. He also denies any recent coughing. He states that the chest pain is pressure-like in nature and has been intermittent since early this morning. He does relate a history of previous coronary artery disease. He has 2 stents remotely. He states that his last heart cath and stress test were many years ago. He normally sees Dr. Kaur. - Related Data Home Medications Medication Instructions Recorded Confirmed Baclofen [Lioresal] 10 mg PO TID PRN 03/06/14 04/09/17 Multivitamin [Men's Multi-Vitamin] 1 tab PO DAILY 03/06/14 04/09/17 Tiotropium [place] [Spiriva] 18 mcg INHALATION RT-DAILY 03/06/14 04/09/17 Ipratropium-Albuterol Nebulize 3 ml INHALATION RT-QID PRN 10/08/15 04/09/17 [Duoneb 0.5 mg-3 mg/3 ml Soln] Cholecalciferol [Vitamin D3] 2,000 unit PO DAILY 02/22/16 04/09/17 Clopidogrel [Plavix] 75 mg PO DAILY 02/22/16 04/09/17 buPROPion HCL [Wellbutrin SR] 150 mg PO BID 02/22/16 04/09/17 Metoprolol Tartrate 12.5 mg PO DAILY 02/23/16 04/09/17 Omeprazole [PriLOSEC] 20 mg PO DAILY 02/23/16 04/09/17 oxyCODONE HCL 10 mg PO BID PRN 02/23/16 04/09/17 Albuterol Inhaler (Mhu) [Ventolin 2 puff INHALATION RT-Q6H PRN 09/29/16 04/09/17 Hfa Inhaler] Morphine Sulfate [Vivien] 50 mg PO BID 09/29/16 04/09/17 INSULIN LISPRO (For Pump) [humaLOG 0.01 units SQ-PUMP CONTINUOUS 10/29/16 04/09/17 (For Pump)] Aspirin 81 mg PO DAILY 01/19/17 04/09/17 Previous Rx's Medication Instructions Recorded Pregabalin [Lyrica] 150 mg PO BID #20 capsule 08/03/15 Allergies Allergy/AdvReac Type Severity Reaction Status Date / Time No Known Allergies Allergy Verified 03/22/21 14:50 Review of Systems ROS Statement: Those systems with pertinent positive or pertinent negative responses have been documented in the HPI. ROS Other: All systems not noted in ROS Statement are negative. Past Medical History Past Medical History: Coronary Artery Disease (CAD), Heart Failure, COPD, Diabetes Mellitus, GI Bleed, Hyperlipidemia, Hypertension, Osteoarthritis (OA), Pneumonia, Pulmonary Embolus (PE), Renal Disease, Respiratory Disorder, Vascular Disorder Additional Past Medical History / Comment(s): hx. multiple gastric ulcers, hx of chronic respiratory failure-intubated and ventilated,Pulmonary fibrosis, i nterstitial lung disease, CHF-chronic diastolic dysfunction, O2 dependence with O2 at 3L/NC ATC, severe PVD, chronic renal failure per old medical hx but pt denies, chronic pain syndrome, migraines, pancreatitis, DJD, neuropathy bilateral upper and lower extremities, gout, tendonitis R arm, carpal tunnel bilaterally. History of Any Multi-Drug Resistant Organisms: MRSA Date of last positivie culture/infection: 03/15/17 MDRO Source:: genital Past Surgical History: Back Surgery, Cholecystectomy, Heart Catheterization, Heart Catheterization With Stent Additional Past Surgical History / Comment(s): EGD's, 07/26/15 IVC filter, BACK STIMULATORS x 2 -cervical and lumbar,FEMORAL BYPASS RT LEG X3, metal chips removed from bilateral eyes Past Anesthesia/Blood Transfusion Reactions: No Reported Reaction Additional Past Anesthesia/Blood Transfusion Reaction / Comment(s): Pt has received blood transfusions without reaction. Date of Last Stent Placement:: 1999 Past Psychological History: Anxiety, Depression Smoking Status: Current some day smoker Past Alcohol Use History: None Reported Past Drug Use History: None Reported - Past Family History Father History Unknown: Yes Family Medical History: Myocardial Infarction ([place]) Additional Family Medical History / Comment(s): due to heart attack Mother History Unknown: Yes Family Medical History: Cancer Additional Family Medical History / Comment(s): LUNG CANCER General Exam - General Exam Comments Initial Comments: GENERAL: The patient is well nourished and well hydrated. VITAL SIGNS: Heart rate, blood pressure, respiratory rate reviewed as recorded in nurse's notes. EYES: Pupils are round and reactive. Extraocular movements are intact. No conjunctival / lid redness or swelling. ENT: No external evidence of injury, swelling, or ecchymosis. Airway is patent. Throat is clear. Mucous membranes are dry. NECK: Nontender. No swelling or evidence of injury. No subcutaneous emphysema. Trachea is midline. No thyroid mass. HEART: Regular rate and rhythm. Good peripheral pulses. LUNGS/CHEST: Breath sounds clear and equal bilaterally. No rales, rhonchi, or wheezes. There is mild tenderness noted upon palpation of the upper chest in the midsternal region. ABDOMEN: Abdomen soft without tenderness. No palpable masses or organomegaly. No peritoneal signs. No abdominal wall swelling or ecchymosis. EXTREMITIES: No extremity tenderness. Normal muscle tone and function. No thoracolumbar tenderness. NEUROLOGIC: Sensation is grossly intact. Cranial nerve exam reveals face is symmetrical, tongue is midline, speech is clear. SKIN: No abrasions or ecchymosis is noted. No induration or masses noted. PSYCHIATRIC: Alert and oriented. Appropriate behavior and judgment. Limitations: no limitations Course Vital Signs 03/22/21 14:45 Temperature 98.8 F Pulse Rate 110 H Respiratory 22 Rate Blood Pressure 125/27 O2 Sat by Pulse 100 Oximetry Medical Decision Making - Medical Decision Making The patient was seen and examined. All diagnostics are reviewed. The EKG is done and shows a sinus tachycardia at a rate of 107. There is also evidence of a left posterior fascicular block. There is nonspecific ST-T wave changes iden tified. The UT intervals 160, QRS duration is 110, and the QTC intervals 517. The patient does receive ample fluid hydration. He also receives insulin drip, Reglan, and morphine. The patient is started on an insulin drip. He also receives ample fluid hydration. Chest x-ray shows a right lower lobe pneumonia. He is initiated on Rocephin and Zithromax intravenously. The laboratory came back showing a severely elevated blood sugar at 714. His CO2 is quite low at 7. The potassium is elevated at 6.1. White blood cell count is significantly elevated at 25,000. Acetone is positive. His troponin came back elevated over 3. Able is felt as though he is fairly ill at this point in time and would require admission to the intensive care unit. He is agreeable to this plan. He is started on an aspirin and also receives Nitropaste. He is chest pain-free currently. Case is discussed with internal medicine PA who is agreeable with admission. Case also was discussed with reading specialist Dr. Melgar and [address] Carmona. Heparin will be withheld at this time due to his history of recent GI bleeding. Hemoccult is pending. covid test is also pending. Approximately 40 minutes of critical care time is utilized and the treatment of the patient. - Lab Data Result diagrams: 03/22/21 16:52 03/22/21 16:52 Lab Results 03/22/21 03/22/21 03/22/21 Range/Units 14:48 16:52 16:52 WBC 25.5 H (3.8-10.6) k/uL RBC 4.14 L (4.30-5.90) m/uL Hgb 13.1 (13.0-17.5) gm/dL Hct 41.7 (39.0-53.0) % MCV 100.6 H (80.0-100.0) fL MCH 31.7 (25.0-35.0) pg MCHC 31.5 (31.0-37.0) g/dL RDW 13.9 (11.5-15.5) % Plt Count 305 (150-450) k/uL MPV 8.7 Neutrophils % 92 % Lymphocytes % 5 % Monocytes % 3 % Eosinophils % 0 % Basophils % 0 % Neutrophils # 23.3 H (1.3-7.7) k/uL Lymphocytes # 1.2 (1.0-4.8) k/uL Monocytes # 0.7 (0-1.0) k/uL Eosinophils # 0.0 (0-0.7) k/uL Basophils # 0.0 (0-0.2) k/uL Hypochromasia Marked Macrocytosis Slight Sodium 131 L (137-145) mmol/L Potassium 6.1 H* (3.5-5.1) mmol/L Chloride 99 (98-107) mmol/L Carbon Dioxide 7 L* (22-30) mmol/L Anion Gap 25 mmol/L BUN 41 H (9-20) mg/dL Creatinine 1.74 H (0.66-1.25) mg/dL Est GFR (CKD-EPI)AfAm 49 (>60 ml/min/1.73 sqM) Est GFR (CKD-EPI)NonAf 42 (>60 ml/min/1.73 sqM) Glucose 714 H* (74-99) mg/dL POC Glucose (mg/dL) >600 H (75-99) mg/dL POC Glu Supervisor Filling And Packing ID Josué, Lyssa Calcium 8.6 (8.4-10.2) mg/dL Phosphorus (2.5-4.5) mg/dL Magnesium 2.0 (1.6-2.3) mg/dL Total Bilirubin 0.7 (0.2-1.3) mg/dL AST 52 (17-59) U/L ALT 20 (4-49) U/L Alkaline Phosphatase 166 H (38-126) U/L Troponin I (0.000-0.034) ng/mL Total Protein 5.9 L (6.3-8.2) g/dL Albumin 3.7 (3.5-5.0) g/dL Stool Occult Blood (Negative) Acetone, Qual Positive (Negative) Coronavirus (PCR) (Not Detectd) 03/22/21 03/22/21 03/22/21 Range/Units 16:52 16:52 17:03 WBC (3.8-10.6) k/uL RBC (4.30-5.90) m/uL Hgb (13.0-17.5) gm/dL Hct (39.0-53.0) % MCV (80.0-100.0) fL MCH (25.0-35.0) pg MCHC (31.0-37.0) g/dL RDW (11.5-15.5) % Plt Count (150-450) k/uL MPV Neutrophils % % Lymphocytes % % Monocytes % % Eosinophils % % Basophils % % Neutrophils # (1.3-7.7) k/uL Lymphocytes # (1.0-4.8) k/uL Monocytes # (0-1.0) k/uL Eosinophils # (0-0.7) k/uL Basophils # (0-0.2) k/uL Hypochromasia Macrocytosis Sodium (137-145) mmol/L Potassium (3.5-5.1) mmol/L Chloride (98-107) mmol/L Carbon Dioxide (22-30) mmol/L Anion Gap mmol/L BUN (9-20) mg/dL Creatinine (0.66-1.25) mg/dL Est GFR (CKD-EPI)AfAm (>60 ml/min/1.73 sqM) Est GFR (CKD-EPI)NonAf (>60 ml/min/1.73 sqM) Glucose (74-99) mg/dL POC Glucose (mg/dL) >600 H (75-99) mg/dL POC Glu Supervisor Filling And Packing ID Josué, Lyssa Calcium (8.4-10.2) mg/dL Phosphorus 6.7 H (2.5-4.5) mg/dL Magnesium (1.6-2.3) mg/dL Total Bilirubin (0.2-1.3) mg/dL AST (17-59) U/L ALT (4-49) U/L Alkaline Phosphatase (38-126) U/L Troponin I 3.940 H* (0.000-0.034) ng/mL Total Protein (6.3-8.2) g/dL Albumin (3.5-5.0) g/dL Stool Occult Blood (Negative) Acetone, Qual (Negative) Coronavirus (PCR) (Not Detectd) 03/22/21 03/22/21 03/22/21 Range/Units 17:30 17:57 18:28 WBC (3.8-10.6) k/uL RBC (4.30-5.90) m/uL Hgb (13.0-17.5) gm/dL Hct (39.0-53.0) % MCV (80.0-100.0) fL MCH (25.0-35.0) pg MCHC (31.0-37.0) g/dL RDW (11.5-15.5) % Plt Count (150-450) k/uL MPV Neutrophils % % Lymphocytes % % Monocytes % % Eosinophils % % Basophils % % Neutrophils # (1.3-7.7) k/uL Lymphocytes # (1.0-4.8) k/uL Monocytes # (0-1.0) k/uL Eosinophils # (0-0.7) k/uL Basophils # (0-0.2) k/uL Hypochromasia Macrocytosis Sodium (137-145) mmol/L Potassium (3.5-5.1) mmol/L Chloride (98-107) mmol/L Carbon Dioxide (22-30) mmol/L Anion Gap mmol/L BUN (9-20) mg/dL Creatinine (0.66-1.25) mg/dL Est GFR (CKD-EPI)AfAm (>60 ml/min/1.73 sqM) Est GFR (CKD-EPI)NonAf (>60 ml/min/1.73 sqM) Glucose (74-99) mg/dL POC Glucose (mg/dL) >600 H (75-99) mg/dL POC Glu Supervisor Filling And Packing ID Flori Fletcher Calcium (8.4-10.2) mg/dL Phosphorus (2.5-4.5) mg/dL Magnesium (1.6-2.3) mg/dL Total Bilirubin (0.2-1.3) mg/dL AST (17-59) U/L ALT (4-49) U/L Alkaline Phosphatase (38-126) U/L Troponin I (0.000-0.034) ng/mL Total Protein (6.3-8.2) g/dL Albumin (3.5-5.0) g/dL Stool Occult Blood Positive (Negative) Acetone, Qual (Negative) Coronavirus (PCR) Not Detected (Not Detectd) Disposition Clinical Impression: Chest pain, DKA (diabetic ketoacidoses), Nausea and vomiting, Prolonged QT interval, Diarrhea, Rectal bleeding, Hyperkalemia, Non-ST elevation myocardial infarction (NSTEMI), Dehydration, Gastrointestinal bleed, Pneumonia Disposition: ADMITTED IP TO THIS HOSP Condition: Critical Is patient prescribed a controlled substance at d/c from ED?: No Referrals: None,Stated [Primary Care Provider] - 1-2 days Time of Disposition: 18:46 Decision Date: 03/22/21 Decision Time: 18:47
[2021-03-22] MEDS: INSULIN REGULAR 100 UNIT in SODIUM CHLORIDE 0.9% 100 ML IV SCH (15:59)
--- NOTE | 2021-03-22 16:05 | XR ---
EXAMINATION TYPE: XR chest 2V DATE OF EXAM: 03/22/2021 COMPARISON: 01/19/2017 HISTORY: Chest pain TECHNIQUE: Frontal and lateral views of the chest are obtained. FINDINGS: Increased density right lower lobe may reflect developing infiltrate. Correlate clinically. Hyperinfl ation compatible with COPD. No evidence for pneumothorax. No pleural effusion. The cardiac silhouette size is within normal limits. The osseous structures are grossly intact. IMPRESSION: 1. Increased density right lower lobe may reflect developing infiltrate. Correlate clinically.
[2021-03-22 17:05] LABS: Glucose,Whole Blood >600 mg/dL (75-99)
[2021-03-22 17:15] LABS: Basophils % (A) 0 %; Eosinophils % (A) 0 %; HCT 41.7 % (39.0-53.0); HGB 13.1 gm/dL (13.0-17.5); Hypochromasia Marked; Lymphocytes # (A) 1.2 k/uL (1.0-4.8); Lymphocytes % (A) 5 %; MCH 31.7 pg (25.0-35.0); MCHC 31.5 g/dL (31.0-37.0); MCV 100.6 fL (80.0-100.0); Macrocytosis Slight; Mean Platelet Volume 8.7; Monocytes # (A) 0.7 k/uL (0-1.0); Monocytes % (A) 3 %; Neutrophils # (A) 23.3 k/uL (1.3-7.7); Neutrophils % (A) 92 %; Platelet Count 305 k/uL (150-450); RBC 4.14 m/uL (4.30-5.90); RDW 13.9 % (11.5-15.5); WBC 25.5 k/uL (3.8-10.6)
[2021-03-22 17:34] LABS: ALT 20 U/L (4-49); AST 52 U/L (17-59); African American GFR (CKD) 49 (>60 ml/min/1.73 sqM); Albumin 3.7 g/dL (3.5-5.0); Alkaline Phosphatase 166 U/L (38-126); Blood Urea Nitrogen 41 mg/dL (9-20); Calcium 8.6 mg/dL (8.4-10.2); Chloride 99 mmol/L (98-107); Non-African American GFR(CKD) 42 (>60 ml/min/1.73 sqM); Sodium 131 mmol/L (137-145); Total Bilirubin 0.7 mg/dL (0.2-1.3); Total Protein 5.9 g/dL (6.3-8.2)
[2021-03-22 17:38] LABS: Anion Gap 25 mmol/L
[2021-03-22 17:44] LABS: Carbon Dioxide 7 mmol/L (22-30); Glucose 714 mg/dL (74-99); Potassium 6.1 mmol/L (3.5-5.1)
[2021-03-22 17:59] LABS: Glucose,Whole Blood >600 mg/dL (75-99)
[2021-03-22] MEDS ORDERED: AZITHROMYCIN 500 MG in SODIUM CHLORIDE 0.9% 250 ML IVPB STA (18:00)
[2021-03-22] MEDS ORDERED: NITROGLYCERIN OINT 1 INCH/GM PACKET TOPICAL STA (18:20)
[2021-03-22] MEDS ORDERED: ASPIRIN 81 MG PO STA (18:20)
[2021-03-22] MEDS ORDERED: NALOXONE 0.4 MG/ML 1 ML VIAL IV PRN (18:47)
[2021-03-22 19:01] LABS: Glucose,Whole Blood 573 mg/dL (75-99)
[2021-03-22 20:20] LABS: Glucose,Whole Blood 477 mg/dL (75-99)
[2021-03-22 20:40] LABS: Glucose,Whole Blood 500 mg/dL (75-99)
[2021-03-22] MEDS ORDERED: SODIUM CHLORIDE 0.9% 2,000 ML IV ONE (21:15)
[2021-03-22] MEDS: SODIUM CHLORIDE 0.9% 1,000 ML IV SCH ×3 (21:18→22:08)
[2021-03-22 21:56] LABS: Phosphorus 4.8 mg/dL (2.5-4.5); Potassium 4.6 mmol/L (3.5-5.1)
[2021-03-22 22:02] LABS: Glucose,Whole Blood 435 mg/dL (75-99)
[2021-03-22] MEDS: PANTOPRAZOLE 40 MG/10 ML VIAL IV SCH (22:09)
[2021-03-22 23:05] LABS: Glucose,Whole Blood 372 mg/dL (75-99)
--- NOTE | 2021-03-22 23:06 | ED ---
Medical Decision Making - Medical Decision Making Repeat EKG shows a sinus tachycardia at a rate of 113. There is some flattened and slightly inverted T waves in the inferior leads but no ST elevation is identified. The AL intervals 148, QRS duration is 120, and the QTC intervals 471. - Lab Data Result diagrams: 03/22/21 16:52 03/22/21 21:16 Lab Results 03/22/21 03/22/21 03/22/21 Range/Units 14:48 16:52 16:52 WBC 25.5 H (3.8-10.6) k/uL RBC 4.14 L (4.30-5.90) m/uL Hgb 13.1 (13.0-17.5) gm/dL Hct 41.7 (39.0-53.0) % MCV 100.6 H (80.0-100.0) fL MCH 31.7 (25.0-35.0) pg MCHC 31.5 (31.0-37.0) g/dL RDW 13.9 (11.5-15.5) % Plt Count 305 (150-450) k/uL MPV 8.7 Neutrophils % 92 % Lymphocytes % 5 % Monocytes % 3 % Eosinophils % 0 % Basophils % 0 % Neutrophils # 23.3 H (1.3-7.7) k/uL Lymphocytes # 1.2 (1.0-4.8) k/uL Monocytes # 0.7 (0-1.0) k/uL Eosinophils # 0.0 (0-0.7) k/uL Basophils # 0.0 (0-0.2) k/uL Hypochromasia Marked Macrocytosis Slight Sodium 131 L (137-145) mmol/L Potassium 6.1 H* (3.5-5.1) mmol/L Chloride 99 (98-107) mmol/L Carbon Dioxide 7 L* (22-30) mmol/L Anion Gap 25 mmol/L BUN 41 H (9-20) mg/dL Creatinine 1.74 H (0.66-1.25) mg/dL Est GFR (CKD-EPI)AfAm 49 (>60 ml/min/1.73 sqM) Est GFR (CKD-EPI)NonAf 42 (>60 ml/min/1.73 sqM) Glucose 714 H* (74-99) mg/dL POC Glucose (mg/dL) >600 H (75-99) mg/dL POC Glu Lead Pharmacy Technician ID Lyssa Moses Calcium 8.6 (8.4-10.2) mg/dL Phosphorus (2.5-4.5) mg/dL Magnesium 2.0 (1.6-2.3) mg/dL Total Bilirubin 0.7 (0.2-1.3) mg/dL AST 52 (17-59) U/L ALT 20 (4-49) U/L Alkaline Phosphatase 166 H (38-126) U/L Troponin I (0.000-0.034) ng/mL Total Protein 5.9 L (6.3-8.2) g/dL Albumin 3.7 (3.5-5.0) g/dL Stool Occult Blood (Negative) Acetone, Qual Positive (Negative) Coronavirus (PCR) (Not Detectd) 03/22/21 03/22/21 03/22/21 Range/Units 16:52 16:52 17:03 WBC (3.8-10.6) k/uL RBC (4.30-5.90) m/uL Hgb (13.0-17.5) gm/dL Hct (39.0-53.0) % MCV (80.0-100.0) fL MCH (25.0-35.0) pg MCHC (31.0-37.0) g/dL RDW (11.5-15.5) % Plt Count (150-450) k/uL MPV Neutrophils % % Lymphocytes % % Monocytes % % Eosinophils % % Basophils % % Neutrophils # (1.3-7.7) k/uL Lymphocytes # (1.0-4.8) k/uL Monocytes # (0-1.0) k/uL Eosinophils # (0-0.7) k/uL Basophils # (0-0.2) k/uL Hypochromasia Macrocytosis Sodium (137-145) mmol/L Potassium (3.5-5.1) mmol/L Chloride (98-107) mmol/L Carbon Dioxide (22-30) mmol/L Anion Gap mmol/L BUN (9-20) mg/dL Creatinine (0.66-1.25) mg/dL Est GFR (CKD-EPI)AfAm (>60 ml/min/1.73 sqM) Est GFR (CKD-EPI)NonAf (>60 ml/min/1.73 sqM) Glucose (74-99) mg/dL POC Glucose (mg/dL) >600 H (75-99) mg/dL POC Glu Lead Pharmacy Technician ID Lyssa Moses Calcium (8.4-10.2) mg/dL Phosphorus 6.7 H (2.5-4.5) mg/dL Magnesium (1.6-2.3) mg/dL Total Bilirubin (0.2-1.3) mg/dL AST (17-59) U/L ALT (4-49) U/L Alkaline Phosphatase (38-126) U/L Troponin I 3.940 H* (0.000-0.034) ng/mL Total Protein (6.3-8.2) g/dL Albumin (3.5-5.0) g/dL Stool Occult Blood (Negative) Acetone, Qual (Negative) Coronavirus (PCR) (Not Detectd) 03/22/21 03/22/21 03/22/21 Range/Units 17:30 17:57 18:28 WBC (3.8-10.6) k/uL RBC (4.30-5.90) m/uL Hgb (13.0-17.5) gm/dL Hct (39.0-53.0) % MCV (80.0-100.0) fL MCH (25.0-35.0) pg MCHC (31.0-37.0) g/dL RDW (11.5-15.5) % Plt Count (150-450) k/uL MPV Neutrophils % % Lymphocytes % % Monocytes % % Eosinophils % % Basophils % % Neutrophils # (1.3-7.7) k/uL Lymphocytes # (1.0-4.8) k/uL Monocytes # (0-1.0) k/uL Eosinophils # (0-0.7) k/uL Basophils # (0-0.2) k/uL Hypochromasia Macrocytosis Sodium (137-145) mmol/L Potassium (3.5-5.1) mmol/L Chloride (98-107) mmol/L Carbon Dioxide (22-30) mmol/L Anion Gap mmol/L BUN (9-20) mg/dL Creatinine (0.66-1.25) mg/dL Est GFR (CKD-EPI)AfAm (>60 ml/min/1.73 sqM) Est GFR (CKD-EPI)NonAf (>60 ml/min/1.73 sqM) Glucose (74-99) mg/dL POC Glucose (mg/dL) >600 H (75-99) mg/dL POC Glu Lead Pharmacy Technician ID Flori Fletcher Calcium (8.4-10.2) mg/dL Phosphorus (2.5-4.5) mg/dL Magnesium (1.6-2.3) mg/dL Total Bilirubin (0.2-1.3) mg/dL AST (17-59) U/L ALT (4-49) U/L Alkaline Phosphatase (38-126) U/L Troponin I (0.000-0.034) ng/mL Total Protein (6.3-8.2) g/dL Albumin (3.5-5.0) g/dL Stool Occult Blood Positive (Negative) Acetone, Qual (Negative) Coronavirus (PCR) Not Detected (Not Detectd) Disposition Clinical Impression: Chest pain, DKA (diabetic ketoacidoses), Nausea and vomiting, Prolonged QT interval, Diarrhea, Rectal bleeding, Hyperkalemia, Non-ST elevation myocardial infarction (NSTEMI), Dehydration, Gastrointestinal bleed, Pneumonia Disposition: ADMITTED IP TO THIS [facility] Condition: Critical
[2021-03-22 23:59] LABS: Glucose,Whole Blood 318 mg/dL (75-99)
[2021-03-23] MEDS: SODIUM CHLORIDE 0.9% 1,000 ML IV SCH ×3 (00:15→03:06)
[2021-03-23 01:04] LABS: Glucose,Whole Blood 269 mg/dL (75-99)
[2021-03-23 01:45] LABS: Phosphorus 3.8 mg/dL (2.5-4.5)
[2021-03-23 02:13] LABS: Glucose,Whole Blood 200 mg/dL (75-99)
[2021-03-23] MEDS: INSULIN REGULAR 100 UNIT in SODIUM CHLORIDE 0.9% 100 ML IV SCH (02:14)
[2021-03-23] MEDS: DEXTROSE 5%-0.45% NACL 1,000 ML with POTASSIUM CHLORIDE 20 MEQ IV SCH ×6 (03:05→15:29)
[2021-03-23 03:06] LABS: Glucose,Whole Blood 165 mg/dL (75-99)
[2021-03-23 03:09] LABS: Appearance,Urine Clear (Clear); Bilirubin,Urine Negative (Negative); Blood,Urine Negative (Negative); Color,Urine Yellow; Glucose,Urine (UA) 4+ (Negative); Ketones,Urine 1+ (Negative); Leukocyte Esterase,Urine Negative (Negative); Nitrite,Urine Negative (Negative); Protein,Urine Negative (Negative); Specific Gravity,Urine 1.017 (1.001-1.035); Urobilinogen,Urine <2.0 mg/dL (<2.0)
[2021-03-23 04:04] LABS: Glucose,Whole Blood 141 mg/dL (75-99)
[2021-03-23] MEDS: NOREPINEPHRINE 4 MG in SODIUM CHLORIDE 0.9% 250 ML IV SCH (04:31)
[2021-03-23 05:12] LABS: Glucose,Whole Blood 97 mg/dL (75-99)
[2021-03-23 05:41] LABS: Glucose,Whole Blood 85 mg/dL (75-99)
[2021-03-23 05:41] LABS: Basophils # (A) 0.1 k/uL (0-0.2); Basophils % (A) 0 %; Eosinophils # (A) 0.1 k/uL (0-0.7); Eosinophils % (A) 0 %; HCT 35.9 % (39.0-53.0); HGB 12.3 gm/dL (13.0-17.5); Lymphocytes % (A) 7 %; MCH 31.7 pg (25.0-35.0); MCHC 34.1 g/dL (31.0-37.0); Mean Platelet Volume 7.8; Monocytes # (A) 2.3 k/uL (0-1.0); Monocytes % (A) 8 %; Neutrophils # (A) 22.5 k/uL (1.3-7.7); Neutrophils % (A) 82 %; Platelet Count 297 k/uL (150-450); RBC 3.87 m/uL (4.30-5.90); WBC 27.6 k/uL (3.8-10.6)
[2021-03-23 05:42] LABS: MCV 92.9 fL (80.0-100.0)
[2021-03-23 06:01] LABS: Calcium 7.6 mg/dL (8.4-10.2)
[2021-03-23 06:24] LABS: Glucose,Whole Blood 81 mg/dL (75-99)
[2021-03-23] MEDS: NITROGLYCERIN SL TABS 0.4 MG TAB SUBLINGUAL PRN (06:40)
[2021-03-23 07:12] LABS: Glucose,Whole Blood 113 mg/dL (75-99)
[2021-03-23 08:11] LABS: Glucose,Whole Blood 155 mg/dL (75-99)
[2021-03-23] MEDS: ENOXAPARIN 40 MG/0.4 ML SYRINGE SQ SCH ×2 (08:18→09:27)
[2021-03-23] MEDS: PANTOPRAZOLE 40 MG/10 ML VIAL IV SCH ×2 (08:18→20:16)
[2021-03-23] MEDS: ASPIRIN 81 MG PO SCH (08:18)
[2021-03-23] MEDS: CHOLECALCIFEROL 25 MCG (1000 IU) TABLET PO SCH (08:18)
[2021-03-23 09:08] LABS: Glucose,Whole Blood 177 mg/dL (75-99)
[2021-03-23] MEDS ORDERED: SODIUM CHLORIDE 0.9% 1,000 ML IV ONE (09:15)
[2021-03-23 09:56] LABS: INR 1.1 (<1.2); Prothrombin Time 11.3 sec (9.0-12.0)
[2021-03-23] MEDS ORDERED: HEPARIN SODIUM 1,000 UN/ML (10ML VL) IV PRN (10:09)
[2021-03-23] MEDS ORDERED: HEPARIN SODIUM 1,000 UN/ML (10ML VL) IV ONE (10:09)
--- NOTE | 2021-03-23 10:14 | P.CNPUL ---
History of Present Illness Consult date: 03/23/21 Requesting physician: Kelsie Ovalle Reason for consult: dyspnea, pneumonia, abnormal CXR/CT Chief complaint: Diabetic ketoacidosis, pneumonia, NSTEMI History of present illness: Pulmonary consult dated 03/23/2021. 60-year-old male, who presents to the emergency department, on March 22. He apparently came in complaining of nausea, vomiting, and diarrhea. It apparently began early the morning of this admission. The patient is a diabetic and has an insulin pump. Apparently his blood sugars have been running high. The make a long story short, he was apparently evaluated in the emergency department, and found to have diabetic ketoacidosis in addition, he was thought to have a right lower lobe pneumonia, and, was thought to have a non-ST segment elevation myocardial infarction. The patient is admitted into room 259. Currently, he's on room air. He is on an insulin drip at 5 units an hour, and getting dextrose and half-normal saline with 20 mg a potassium at 150 mL an hour. He is getting norepinephrine at 4.3 mcg/m. His chest x-ray does show patchy infiltrate right lower lobe. I recommended additional fluids, a stat random cortisol level, Rocephin IV and oral Zithromax, and a pro-calcitonin level. White count 27.6, hemoglobin 12.3, hematocrit 35.9, and platelet count normal. Sodium 136, potassium 4, chlorides 112, CO2 16, anion gap 8, the 144, creatinine 1.40, and troponins were 3.940 and 69.2. Urine was negative. Chest x-ray showed a patchy infiltrate right lower lobe. Review of Systems REVIEW OF SYSTEMS: CONSTITUTIONAL: Weakness and fatigue. NEUROLOGIC: [ Negative.] HEENT: [ Negative.] CARDIAC: [Negative.] PULMONARY: [Negative.] GI: Nausea, vomiting, diarrhea. : [Negative.] RHEUMATOLOGIC: [ Negative.] IMMUNOLOGIC: [ Negative.] ENDOCRINE: Elevated blood sugars. DERMATOLOGIC: [Negative.] Past Medical History Past Medical History: Coronary Artery Disease (CAD), Heart Failure, COPD, Diabetes Mellitus, GI Bleed, Hyperlipidemia, Hypertension, Osteoarthritis (OA), Pneumonia, Pulmonary Embolus (PE), Renal Disease, Respiratory Disorder, Vascular Disorder Additional Past Medical History / Comment(s): hx. 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 History of Any Multi-Drug Resistant Organisms: MRSA Date of last positivie culture/infection: 03/15/17 MDRO Source:: genital Past Surgical History: Back Surgery, Cholecystectomy, Heart Catheterization, Heart Catheterization With Stent Additional Past Surgical History / Comment(s): EGD's, 07/26/15 IVC filter, BACK STIMULATORS x 2 -cervical and lumbar,FEMORAL BYPASS RT LEG X3, metal chips removed from bilateral eyes Past Anesthesia/Blood Transfusion Reactions: No Reported Reaction Additional Past Anesthesia/Blood Transfusion Reaction / Comment(s): Pt has received blood transfusions without reaction. Date of Last Stent Placement:: 1999 Past Psychological History: Anxiety, Depression Additional Psychological History / Comment(s): Pt lives with his spouse. He is O2 dependent at 3L/NC ATC. He has a cane and walker he uses if needed. Smoking Status: Current some day smoker Past Alcohol Use History: None Reported Additional Past Alcohol Use History / Comment(s): pt states he quit smoking 03/2016 Past Drug Use History: None Reported - Past Family History Father History Unknown: Yes Family Medical History: Myocardial Infarction ([place]) Additional Family Medical History / Comment(s): due to heart attack Mother History Unknown: Yes Family Medical History: Cancer Additional Family Medical History / Comment(s): LUNG CANCER Medications and Allergies Home Medications Medication Instructions Recorded Confirmed Type Cholecalciferol [Vitamin D3] 50 mcg PO DAILY 02/22/16 03/22/21 History INSULIN LISPRO (For Pump) [humaLOG 0.01 units SQ-PUMP CONTINUOUS 10/29/16 03/22/21 History (For Pump)] Aspirin EC [Ecotrin Low Dose] 81 mg PO DAILY 03/22/21 03/22/21 History Allergies Allergy/AdvReac Type Severity Reaction Status Date / Time No Known Allergies Allergy Verified 03/22/21 18:59 Physical Exam Osteopathic Statement: *. No significant issues noted on an osteopathic structural exam other than those noted in the History and Physical/Consult. Vitals: Vital Signs Temp Pulse Resp BP Pulse Ox 03/23/21 09:15 99 25 H 80/41 91 L 03/23/21 09:00 98 23 91/51 93 L 03/23/21 08:45 98 30 H 92/56 92 L 03/23/21 08:30 97 23 100/56 97 03/23/21 08:15 97 22 107/69 98 03/23/21 08:00 98.0 F 100 14 84/44 94 L 03/23/21 07:45 100 20 84/48 99 03/23/21 07:36 99 03/23/21 07:00 98 22 84/49 97 03/23/21 06:45 100 10 L 110/61 95 03/23/21 06:30 100 26 H 81/32 97 03/23/21 06:15 97 22 82/54 97 03/23/21 06:00 98 22 82/54 99 03/23/21 05:00 98 14 96/64 98 03/23/21 04:00 97.7 F 99 20 72/42 96 03/23/21 03:00 100 21 86/52 97 03/23/21 02:00 105 H 19 73/46 96 03/23/21 01:00 102 H 20 92/57 96 03/23/21 00:15 102 H 17 90/57 99 03/23/21 00:00 97.7 F 105 H 15 88/59 96 03/22/21 23:00 103 H 22 92/50 99 03/22/21 22:00 106 H 25 H 87/56 99 03/22/21 21:00 97.9 F 111 H 22 78/52 97 03/22/21 20:40 25 H 03/22/21 20:30 98.0 F 108 H 18 103/68 97 03/22/21 19:25 97.9 F 14 03/22/21 19:22 98.4 F 105 H 18 115/77 97 03/22/21 14:45 98.8 F 110 H 22 125/27 100 Intake and Output 03/22/21 03/23/21 03/23/21 22:59 06:59 14:59 Intake Total 9095.822 9070.063 1487.951 Output Total 0 540 205 Balance 3306.037 1532.063 1282.951 Intake: IV 1300 Dextrose 5%-0.45% NaCl 1, 300 000 ml @ 150 mls/hr IV . Q6H44M TRACEY with Potassium Chloride 20 meq Rx#: [id number] Sodium Chloride 0.9% 2, 1000 000 ml @ 999 mls/hr IV . Q2H1M ONE Rx#:[id number] Intake, IV Titration 1471.835 9292.063 187.951 Amount Dextrose 5%-0.45% NaCl 1, 600 150 000 ml @ 150 mls/hr IV . Q6H44M TRACEY with Potassium Chloride 20 meq Rx#: [id number] Insulin Regular 100 unit 41.669 68.901 0 In Sodium Chloride 0.9% 100 ml @ 0.1 UNITS/KG/HR 6.597 mls/hr IV .[id number] TRACEY Rx#:[id number] Norepinephrine 4 mg In 19.162 37.951 Sodium Chloride 0.9% 250 ml @ 0.05 MCG/KG/MIN 12. 443 mls/hr IV .[id number] TRACEY Rx#:[id number] Sodium Chloride 0.9% 1, 400 800 000 ml @ 200 mls/hr IV . Q5H TRACEY Rx#:[id number] Sodium Chloride 0.9% 2, 1000 1000 000 ml @ 999 mls/hr IV . Q2H1M ONE Rx#:[id number] Output: Urine 0 540 205 Other: Voiding Method Indwelling Catheter Indwelling Catheter Weight 65.317 kg 72.2 kg No acute distress, patient quite sleepy, but does arouse. Saturations on room air 93%. HEENT examination is grossly unremarkable. Neck supple. Full range of motion. No adenopathy thyromegaly or neck vein distention. Cardiovascular examination reveals regular rhythm rate. S1-S2 normal. No S3 or S4. No discernible murmur noted. Heart rate 99 bpm. Lungs reveal mostly clear breath sounds. Mild scattered rhonchi noted. No wheezes. Breath sounds equal bilaterally. Abdomen soft bowel sounds are heard. No masses or tenderness. Extremities are intact. No cyanosis clubbing or edema. Skin is without rash or lesion. Neurologic examination is brief but nonfocal. Results - Laboratory Findings CBC and BMP: 03/23/21 05:24 03/23/21 05:24 PT/INR, D-dimer PT 11.3 sec (9.0-12.0) 03/23/21 05:24 INR 1.1 (<1.2) 03/23/21 05:24 Abnormal lab findings: Abnormal Labs 03/22/21 03/22/21 03/22/21 14:48 16:52 16:52 WBC 25.5 H RBC 4.14 L Hgb Hct MCV 100.6 H Neutrophils # 23.3 H Monocytes # Sodium 131 L Potassium 6.1 H* Chloride Carbon Dioxide 7 L* BUN 41 H Creatinine 1.74 H Glucose 714 H* POC Glucose (mg/dL) >600 H Calcium Phosphorus Alkaline Phosphatase 166 H Troponin I Total Protein 5.9 L Urine Glucose (UA) Urine Ketones 03/22/21 03/22/21 03/22/21 16:52 16:52 17:03 WBC RBC Hgb Hct MCV Neutrophils # Monocytes # Sodium Potassium Chloride Carbon Dioxide BUN Creatinine Glucose POC Glucose (mg/dL) >600 H Calcium Phosphorus 6.7 H Alkaline Phosphatase Troponin I 3.940 H* Total Protein Urine Glucose (UA) Urine Ketones 03/22/21 03/22/21 03/22/21 17:57 18:59 20:18 WBC RBC Hgb Hct MCV Neutrophils # Monocytes # Sodium Potassium Chloride Carbon Dioxide BUN Creatinine Glucose POC Glucose (mg/dL) >600 H 573 H 477 H Calcium Phosphorus Alkaline Phosphatase Troponin I Total Protein Urine Glucose (UA) Urine Ketones 03/22/21 03/22/21 03/22/21 20:38 21:16 22:01 WBC RBC Hgb Hct MCV Neutrophils # Monocytes # Sodium 132 L Potassium Chloride Carbon Dioxide 9 L* BUN 45 H Creatinine 1.73 H Glucose 467 H POC Glucose (mg/dL) 500 H 435 H Calcium Phosphorus 4.8 H Alkaline Phosphatase Troponin I Total Protein Urine Glucose (UA) Urine Ketones 03/22/21 03/22/21 03/23/21 23:03 23:58 01:00 WBC RBC Hgb Hct MCV Neutrophils # Monocytes # Sodium 134 L Potassium Chloride 109 H Carbon Dioxide 14 L BUN 45 H Creatinine 1.56 H Glucose 266 H POC Glucose (mg/dL) 372 H 318 H Calcium Phosphorus Alkaline Phosphatase Troponin I Total Protein Urine Glucose (UA) Urine Ketones 03/23/21 03/23/21 03/23/21 01:00 01:02 02:11 WBC RBC Hgb Hct MCV Neutrophils # Monocytes # Sodium Potassium Chloride Carbon Dioxide BUN Creatinine Glucose POC Glucose (mg/dL) 269 H 200 H Calcium Phosphorus Alkaline Phosphatase Troponin I 58.500 H* Total Protein Urine Glucose (UA) Urine Ketones 03/23/21 03/23/21 03/23/21 02:40 03:04 04:03 WBC RBC Hgb Hct MCV Neutrophils # Monocytes # Sodium Potassium Chloride Carbon Dioxide BUN Creatinine Glucose POC Glucose (mg/dL) 165 H 141 H Calcium Phosphorus Alkaline Phosphatase Troponin I Total Protein Urine Glucose (UA) 4+ H Urine Ketones 1+ H 03/23/21 03/23/21 03/23/21 05:24 05:24 05:24 WBC 27.6 H RBC 3.87 L Hgb 12.3 L Hct 35.9 L MCV Neutrophils # 22.5 H Monocytes # 2.3 H Sodium 136 L Potassium Chloride 112 H Carbon Dioxide 16 L BUN 44 H Creatinine 1.40 H Glucose POC Glucose (mg/dL) Calcium 7.6 L Phosphorus Alkaline Phosphatase Troponin I 69.200 H* Total Protein Urine Glucose (UA) Urine Ketones 03/23/21 03/23/21 03/23/21 07:09 08:09 08:56 WBC RBC Hgb Hct MCV Neutrophils # Monocytes # Sodium Potassium Chloride Carbon Dioxide BUN Creatinine Glucose POC Glucose (mg/dL) 113 H 155 H 177 H Calcium Phosphorus Alkaline Phosphatase Troponin I Total Protein Urine Glucose (UA) Urine Ketones - Diagnostic Findings Chest x-ray: image reviewed Assessment and Plan Assessment: Non-ST segment elevation myocardial infarction. Diabetic ketoacidosis. Chronic hypoxemic respiratory failure. Chronic pain syndrome. History of pancreatitis. Migraine cephalgia. Pneumonia, right lower lobe. History of CAD. History of CHF. History of GI bleed. History of hyperlipidemia. Hypertension by history. Osteoarthritis. Prior history of pulmonary embolism. History of pulmonary fibrosis/interstitial lung disease. Plan: Plan dated 03/23/2021. The patient will continue on the protocol for diabetic ketoacidosis. Currently, his bicarbonate concentration is 16, anion gap is closed, and most recent glucose is 177. We will give the patient some additional volume, to see if we can wean off the norepinephrine. In addition, we'll go ahead and get a random cortisol level, continue on IV Rocephin and oral Zithromax, and check a pro- calcitonin level. Prognosis is guarded. Additional recommendations and suggestions are forthcoming. Time with Patient: Greater than 30
[2021-03-23 10:16] LABS: Glucose,Whole Blood 178 mg/dL (75-99)
[2021-03-23] MEDS: HEPARIN SOD,PORK IN 0.45% NACL 25,000 UNIT in 0.45% NACL 1 250ML.BAG IV SCH (10:57)
[2021-03-23 11:11] LABS: Glucose,Whole Blood 142 mg/dL (75-99)
[2021-03-23] MEDS: CLOPIDOGREL 75 MG TAB PO SCH (11:18)
--- NOTE | 2021-03-23 11:38 | P.CONS ---
History of Present Illness - Reason for Consult Consult date: 03/23/21 Stool positive for occult blood Requesting physician: Kelsie Ovalle - Chief Complaint Nausea, vomiting, diarrhea - History of Present Illness 60-year-old male with multiple medical comorbidities including insulin-dependent diabetes mellitus, hypertension, hyperlipidemia, coronary artery disease, prior history of peptic ulcer disease in 2014 and presented to the hospital with a constellation of symptoms including nausea, vomiting and diarrhea. Patient found to have diabetic ketoacidosis on presentation with markedly elevated troponin level. Patient has been hospitalized and placed in the intensive care unit where he is receiving treatment for elevated blood sugars and possible non- ST elevation myocardial infarction. The patient had been having nausea and vomiting prior to presentation however no further nausea or vomiting reported. He did also been reporting diarrhea with no bowel movements reported today. The patient had noted some painless bright red blood per rectum however he is had no further bleeding noted. Hemoglobin is stable at 12.3 from 13.1 on presentation. Stool did test positive for occult blood. Troponin 69 today. As per history last colonoscopy in 2012 with flexible sigmoidoscopy in 2014 with the surgical service for evaluation of rectal bleeding. Previously in 2014 he was noted to have ulcers in the antrum and duodenum which were subsequently followed up with EGD in 09/2015 with well-healing ulcers noted. No abdominal pain reported at this time. Review of Systems REVIEW OF SYSTEMS: CONSTITUTIONAL: Denies any fevers, chills, weight change but he is reporting fatigue. CARDIOVASCULAR: Denies any chest pain, palpitations high or low blood pressures RESPIRATORY: Denies any shortness of breath, hemoptysis or cough. GENITOURINARY: No dysuria or hematuria. MUSCULOSKELETAL: No weakness reported. SKIN: Denies any new rashes or lesions, jaundice or pallor. PSYCHIATRIC: Denies any depression or anxiety. NEUROLOGY: Denies headache, denies any new focal deficits. EARS/NOSE/THROAT: No recent hearing change, congestion, nasal discharge or sore throat. EYES: No pain in eyes, discharge or change in vision. GASTROINTESTINAL: As per HPI. Past Medical History Past Medical History: Coronary Artery Disease (CAD), Heart Failure, COPD, Diabetes Mellitus, GI Bleed, Hyperlipidemia, Hypertension, Osteoarthritis (OA), Pneumonia, Pulmonary Embolus (PE), Renal Disease, Respiratory Disorder, Vascular Disorder Additional Past Medical History / Comment(s): hx. 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 History of Any Multi-Drug Resistant Organisms: MRSA Year Discovered:: 03/15/17 MDRO Source:: genital Past Surgical History: Back Surgery, Cholecystectomy, Heart Catheterization, Heart Catheterization With Stent Additional Past Surgical History / Comment(s): EGD's, 07/26/15 IVC filter, BACK STIMULATORS x 2 -cervical and lumbar,FEMORAL BYPASS RT LEG X3, metal chips removed from bilateral eyes Past Anesthesia/Blood Transfusion Reactions: No Reported Reaction Additional Past Anesthesia/Blood Transfusion Reaction / Comm: Pt has received blood transfusions without reaction. Date of Last Stent Placement:: 1999 Past Psychological History: Anxiety, Depression Additional Psychological History / Comment(s): Pt lives with his spouse. He is O2 dependent at 3L/NC ATC. He has a cane and walker he uses if needed. Smoking Status: Current some day smoker Past Alcohol Use History: None Reported Additional Past Alcohol Use History / Comment(s): pt states he quit smoking 03/2016 Past Drug Use History: None Reported - Past Family History Father History Unknown: Yes Family Medical History: Myocardial Infarction (CT) Additional Family Medical History / Comment(s): due to heart attack Mother History Unknown: Yes Family Medical History: Cancer Additional Family Medical History / Comment(s): LUNG CANCER Medications and Allergies Home Medications Medication Instructions Recorded Confirmed Type Cholecalciferol [Vitamin D3] 50 mcg PO DAILY 02/22/16 03/22/21 History INSULIN LISPRO (For Pump) [humaLOG 0.01 units SQ-PUMP CONTINUOUS 10/29/16 03/22/21 History (For Pump)] Aspirin EC [Ecotrin Low Dose] 81 mg PO DAILY 03/22/21 03/22/21 History Allergies Allergy/AdvReac Type Severity Reaction Status Date / Time No Known Allergies Allergy Verified 03/22/21 18:59 Physical Exam Vitals: Vital Signs Temp Pulse Resp BP Pulse Ox 03/23/21 09:15 99 25 H 80/41 91 L 03/23/21 09:00 98 23 91/51 93 L 03/23/21 08:45 98 30 H 92/56 92 L 03/23/21 08:30 97 23 100/56 97 03/23/21 08:15 97 22 107/69 98 03/23/21 08:00 98.0 F 100 14 84/44 94 L 03/23/21 07:45 100 20 84/48 99 03/23/21 07:36 99 03/23/21 07:00 98 22 84/49 97 03/23/21 06:45 100 10 L 110/61 95 03/23/21 06:30 100 26 H 81/32 97 03/23/21 06:15 97 22 82/54 97 03/23/21 06:00 98 22 82/54 99 03/23/21 05:00 98 14 96/64 98 03/23/21 04:00 97.7 F 99 20 72/42 96 03/23/21 03:00 100 21 86/52 97 03/23/21 02:00 105 H 19 73/46 96 03/23/21 01:00 102 H 20 92/57 96 03/23/21 00:15 102 H 17 90/57 99 03/23/21 00:00 97.7 F 105 H 15 88/59 96 03/22/21 23:00 103 H 22 92/50 99 03/22/21 22:00 106 H 25 H 87/56 99 03/22/21 21:00 97.9 F 111 H 22 78/52 97 03/22/21 20:40 25 H 03/22/21 20:30 98.0 F 108 H 18 103/68 97 03/22/21 19:25 97.9 F 14 03/22/21 19:22 98.4 F 105 H 18 115/77 97 03/22/21 14:45 98.8 F 110 H 22 125/27 100 Intake and Output 03/22/21 03/23/21 03/23/21 22:59 06:59 14:59 Intake Total 6146.709 6981.063 1487.951 Output Total 0 540 205 Balance 6917.109 1449.063 1282.951 Intake: IV 1300 Dextrose 5%-0.45% NaCl 1, 300 000 ml @ 150 mls/hr IV . Q6H44M TRACEY with Potassium Chloride 20 meq Rx#: [id number] Sodium Chloride 0.9% 2, 1000 000 ml @ 999 mls/hr IV . Q2H1M ONE Rx#:[id number] Intake, IV Titration 9664.453 5218.063 187.951 Amount Dextrose 5%-0.45% NaCl 1, 600 150 000 ml @ 150 mls/hr IV . Q6H44M TRACEY with Potassium Chloride 20 meq Rx#: [id number] Insulin Regular 100 unit 41.669 68.901 0 In Sodium Chloride 0.9% 100 ml @ 0.1 UNITS/KG/HR 6.597 mls/hr IV .[id number] TRACEY Rx#:[id number] Norepinephrine 4 mg In 19.162 37.951 Sodium Chloride 0.9% 250 ml @ 0.05 MCG/KG/MIN 12. 443 mls/hr IV .[id number] TRACEY Rx#:[id number] Sodium Chloride 0.9% 1, 400 800 000 ml @ 200 mls/hr IV . Q5H TRACEY Rx#:[id number] Sodium Chloride 0.9% 2, 1000 1000 000 ml @ 999 mls/hr IV . Q2H1M ONE Rx#:[id number] Output: Urine 0 540 205 Other: Voiding Method Indwelling Catheter Weight 65.317 kg 72.2 kg On physical examination, patient appears comfortable in no apparent distress. HEAD: Normocephalic, atraumatic. EYES: No scleral icterus. No conjunctival injection. MOUTH: No lesions, tongue midline. NECK: Trachea midline, no gross abnormalities. CHEST: Decreased air entry in all lung johnson. HEART: S1-S2 appreciated. ABDOMEN: Soft, nontender to palpation. Bowel sounds are positive. No organomegaly. No guarding or rigidity. EXTREMITIES: No pedal edema. SKIN: No rashes, no jaundice. NEUROLOGIC: Alert and oriented x3. No focal deficits. Results CBC & Chem 7: 03/23/21 05:24 03/23/21 05:24 Labs: Abnormal Lab Results - Last 24 Hours (Table) 03/22/21 03/22/21 03/22/21 Range/Units 14:48 16:52 16:52 WBC 25.5 H (3.8-10.6) k/uL RBC 4.14 L (4.30-5.90) m/uL Hgb (13.0-17.5) gm/dL Hct (39.0-53.0) % MCV 100.6 H (80.0-100.0) fL Neutrophils # 23.3 H (1.3-7.7) k/uL Monocytes # (0-1.0) k/uL Sodium 131 L (137-145) mmol/L Potassium 6.1 H* (3.5-5.1) mmol/L Chloride (98-107) mmol/L Carbon Dioxide 7 L* (22-30) mmol/L BUN 41 H (9-20) mg/dL Creatinine 1.74 H (0.66-1.25) mg/dL Glucose 714 H* (74-99) mg/dL POC Glucose (mg/dL) >600 H (75-99) mg/dL Calcium (8.4-10.2) mg/dL Phosphorus (2.5-4.5) mg/dL Alkaline Phosphatase 166 H (38-126) U/L Troponin I (0.000-0.034) ng/mL Total Protein 5.9 L (6.3-8.2) g/dL Urine Glucose (UA) (Negative) Urine Ketones (Negative) 03/22/21 03/22/21 03/22/21 Range/Units 16:52 16:52 17:03 WBC (3.8-10.6) k/uL RBC (4.30-5.90) m/uL Hgb (13.0-17.5) gm/dL Hct (39.0-53.0) % MCV (80.0-100.0) fL Neutrophils # (1.3-7.7) k/uL Monocytes # (0-1.0) k/uL Sodium (137-145) mmol/L Potassium (3.5-5.1) mmol/L Chloride (98-107) mmol/L Carbon Dioxide (22-30) mmol/L BUN (9-20) mg/dL Creatinine (0.66-1.25) mg/dL Glucose (74-99) mg/dL POC Glucose (mg/dL) >600 H (75-99) mg/dL Calcium (8.4-10.2) mg/dL Phosphorus 6.7 H (2.5-4.5) mg/dL Alkaline Phosphatase (38-126) U/L Troponin I 3.940 H* (0.000-0.034) ng/mL Total Protein (6.3-8.2) g/dL Urine Glucose (UA) (Negative) Urine Ketones (Negative) 03/22/21 03/22/21 03/22/21 Range/Units 17:57 18:59 20:18 WBC (3.8-10.6) k/uL RBC (4.30-5.90) m/uL Hgb (13.0-17.5) gm/dL Hct (39.0-53.0) % MCV (80.0-100.0) fL Neutrophils # (1.3-7.7) k/uL Monocytes # (0-1.0) k/uL Sodium (137-145) mmol/L Potassium (3.5-5.1) mmol/L Chloride (98-107) mmol/L Carbon Dioxide (22-30) mmol/L BUN (9-20) mg/dL Creatinine (0.66-1.25) mg/dL Glucose (74-99) mg/dL POC Glucose (mg/dL) >600 H 573 H 477 H (75-99) mg/dL Calcium (8.4-10.2) mg/dL Phosphorus (2.5-4.5) mg/dL Alkaline Phosphatase (38-126) U/L Troponin I (0.000-0.034) ng/mL Total Protein (6.3-8.2) g/dL Urine Glucose (UA) (Negative) Urine Ketones (Negative) 03/22/21 03/22/21 03/22/21 Range/Units 20:38 21:16 22:01 WBC (3.8-10.6) k/uL RBC (4.30-5.90) m/uL Hgb (13.0-17.5) gm/dL Hct (39.0-53.0) % MCV (80.0-100.0) fL Neutrophils # (1.3-7.7) k/uL Monocytes # (0-1.0) k/uL Sodium 132 L (137-145) mmol/L Potassium (3.5-5.1) mmol/L Chloride (98-107) mmol/L Carbon Dioxide 9 L* (22-30) mmol/L BUN 45 H (9-20) mg/dL Creatinine 1.73 H (0.66-1.25) mg/dL Glucose 467 H (74-99) mg/dL POC Glucose (mg/dL) 500 H 435 H (75-99) mg/dL Calcium (8.4-10.2) mg/dL Phosphorus 4.8 H (2.5-4.5) mg/dL Alkaline Phosphatase (38-126) U/L Troponin I (0.000-0.034) ng/mL Total Protein (6.3-8.2) g/dL Urine Glucose (UA) (Negative) Urine Ketones (Negative) 03/22/21 03/22/21 03/23/21 Range/Units 23:03 23:58 01:00 WBC (3.8-10.6) k/uL RBC (4.30-5.90) m/uL Hgb (13.0-17.5) gm/dL Hct (39.0-53.0) % MCV (80.0-100.0) fL Neutrophils # (1.3-7.7) k/uL Monocytes # (0-1.0) k/uL Sodium 134 L (137-145) mmol/L Potassium (3.5-5.1) mmol/L Chloride 109 H (98-107) mmol/L Carbon Dioxide 14 L (22-30) mmol/L BUN 45 H (9-20) mg/dL Creatinine 1.56 H (0.66-1.25) mg/dL Glucose 266 H (74-99) mg/dL POC Glucose (mg/dL) 372 H 318 H (75-99) mg/dL Calcium (8.4-10.2) mg/dL Phosphorus (2.5-4.5) mg/dL Alkaline Phosphatase (38-126) U/L Troponin I (0.000-0.034) ng/mL Total Protein (6.3-8.2) g/dL Urine Glucose (UA) (Negative) Urine Ketones (Negative) 03/23/21 03/23/21 03/23/21 Range/Units 01:00 01:02 02:11 WBC (3.8-10.6) k/uL RBC (4.30-5.90) m/uL Hgb (13.0-17.5) gm/dL Hct (39.0-53.0) % MCV (80.0-100.0) fL Neutrophils # (1.3-7.7) k/uL Monocytes # (0-1.0) k/uL Sodium (137-145) mmol/L Potassium (3.5-5.1) mmol/L Chloride (98-107) mmol/L Carbon Dioxide (22-30) mmol/L BUN (9-20) mg/dL Creatinine (0.66-1.25) mg/dL Glucose (74-99) mg/dL POC Glucose (mg/dL) 269 H 200 H (75-99) mg/dL Calcium (8.4-10.2) mg/dL Phosphorus (2.5-4.5) mg/dL Alkaline Phosphatase (38-126) U/L Troponin I 58.500 H* (0.000-0.034) ng/mL Total Protein (6.3-8.2) g/dL Urine Glucose (UA) (Negative) Urine Ketones (Negative) 03/23/21 03/23/21 03/23/21 Range/Units 02:40 03:04 04:03 WBC (3.8-10.6) k/uL RBC (4.30-5.90) m/uL Hgb (13.0-17.5) gm/dL Hct (39.0-53.0) % MCV (80.0-100.0) fL Neutrophils # (1.3-7.7) k/uL Monocytes # (0-1.0) k/uL Sodium (137-145) mmol/L Potassium (3.5-5.1) mmol/L Chloride (98-107) mmol/L Carbon Dioxide (22-30) mmol/L BUN (9-20) mg/dL Creatinine (0.66-1.25) mg/dL Glucose (74-99) mg/dL POC Glucose (mg/dL) 165 H 141 H (75-99) mg/dL Calcium (8.4-10.2) mg/dL Phosphorus (2.5-4.5) mg/dL Alkaline Phosphatase (38-126) U/L Troponin I (0.000-0.034) ng/mL Total Protein (6.3-8.2) g/dL Urine Glucose (UA) 4+ H (Negative) Urine Ketones 1+ H (Negative) 03/23/21 03/23/21 03/23/21 Range/Units 05:24 05:24 05:24 WBC 27.6 H (3.8-10.6) k/uL RBC 3.87 L (4.30-5.90) m/uL Hgb 12.3 L (13.0-17.5) gm/dL Hct 35.9 L (39.0-53.0) % MCV (80.0-100.0) fL Neutrophils # 22.5 H (1.3-7.7) k/uL Monocytes # 2.3 H (0-1.0) k/uL Sodium 136 L (137-145) mmol/L Potassium (3.5-5.1) mmol/L Chloride 112 H (98-107) mmol/L Carbon Dioxide 16 L (22-30) mmol/L BUN 44 H (9-20) mg/dL Creatinine 1.40 H (0.66-1.25) mg/dL Glucose (74-99) mg/dL POC Glucose (mg/dL) (75-99) mg/dL Calcium 7.6 L (8.4-10.2) mg/dL Phosphorus (2.5-4.5) mg/dL Alkaline Phosphatase (38-126) U/L Troponin I 69.200 H* (0.000-0.034) ng/mL Total Protein (6.3-8.2) g/dL Urine Glucose (UA) (Negative) Urine Ketones (Negative) 03/23/21 03/23/21 03/23/21 Range/Units 07:09 08:09 08:56 WBC (3.8-10.6) k/uL RBC (4.30-5.90) m/uL Hgb (13.0-17.5) gm/dL Hct (39.0-53.0) % MCV (80.0-100.0) fL Neutrophils # (1.3-7.7) k/uL Monocytes # (0-1.0) k/uL Sodium (137-145) mmol/L Potassium (3.5-5.1) mmol/L Chloride (98-107) mmol/L Carbon Dioxide (22-30) mmol/L BUN (9-20) mg/dL Creatinine (0.66-1.25) mg/dL Glucose (74-99) mg/dL POC Glucose (mg/dL) 113 H 155 H 177 H (75-99) mg/dL Calcium (8.4-10.2) mg/dL Phosphorus (2.5-4.5) mg/dL Alkaline Phosphatase (38-126) U/L Troponin I (0.000-0.034) ng/mL Total Protein (6.3-8.2) g/dL Urine Glucose (UA) (Negative) Urine Ketones (Negative) Chest x-ray: report reviewed (Right lower lobe infiltrate on chest x-ray) Assessment and Plan (1) Diarrhea Narrative/Plan: 60-year-old male with multiple medical comorbidities presenting with a constellation of symptoms including nausea, vomiting, diarrhea and found to have stool positive for occult blood. Hemoglobin stable at 12.3 from 13.1 with no reports of any further nausea, vomiting, diarrhea or bleeding today. Patient is currently receiving treatment for diabetic ketoacidosis and possible non-ST elevation myocardial infarction. Symptoms likely related to uncontrolled blood sugars with stool studies ordered to rule out other etiology. No plans for endoscopic evaluation at this time. Last colonoscopy as per history in 2012 with last flexible sigmoidoscopy in 2014 for rectal bleeding at that time EGD in 09/2015 showed well-healing ulcers of the antrum and duodenum. Current Visit: Yes Status: Acute Code(s): R19.7 - DIARRHEA, UNSPECIFIED SNOMED Code(s): 10087167 (2) Positive occult stool blood test Current Visit: Yes Status: Acute Code(s): R19.5 - OTHER FECAL ABNORMALITIES SNOMED Code(s): 00644604 (3) DKA (diabetic ketoacidoses) Current Visit: Yes Status: Acute Code(s): E11.10 - TYPE 2 DIABETES MELLITUS WITH KETOACIDOSIS WITHOUT COMA SNOMED Code(s): 518000142 (4) Nausea and vomiting Current Visit: Yes Status: Acute Code(s): R11.2 - NAUSEA WITH VOMITING, UN SPECIFIED SNOMED Code(s): 97362290 (5) History of peptic ulcer disease Current Visit: Yes Status: Acute Code(s): Z87.11 - PERSONAL HISTORY OF PEPTIC ULCER DISEASE SNOMED Code(s): 895387545 Plan: Supportive care Continue ICU management Continue tight glycemic control Continue cardiac management as per cardiology service Continue to monitor hemoglobin and hematocrit and transfuse as needed Continue to monitor stool output, no bowel movements, nausea or vomiting today Stool studies ordered No plan for endoscopic evaluation at this time Thank you for allowing us to participate in the care of the patient
[2021-03-23 11:59] LABS: Glucose,Whole Blood 140 mg/dL (75-99)
[2021-03-23 13:06] LABS: Glucose,Whole Blood 151 mg/dL (75-99)
--- NOTE | 2021-03-23 13:18 | CONS ---
CONSULTATION CHIEF COMPLAINT: Elevated troponin. HISTORY OF PRESENT ILLNESS: Mr. Chilel is a 60-year-old gentleman with history of coronary artery disease, status post prior angioplasty, peripheral vascular disease status post prior stenting, who presented to the hospital for symptoms of nausea, vomiting, diarrhea and it started around 4 o'clock yesterday morning and he came to the ER around 2:30 yesterday afternoon. He is a diabetic. He has an insulin pump and his blood sugars were elevated. He also had some midsternal chest discomfort. His admission EKG revealed sinus rhythm without significant ST-T wave changes. The first set of troponin was elevated at 3.9, and the 2nd set came back at 58 and the 3rd one was 69. The patient, however, was pain-free throughout. Creatinine was elevated at 1.7 on admission. He on- call and dock loader, Dr. Crawley to whom the tropnarinder were called opted not to do heart catheterization on him. This morning, the patient does not have any chest discomfort. Nausea, vomiting are improving. His creatinine has improved but still is abnormal at 1.4 and BUN is elevated at 44. The patient's EKG shows normal sinus rhythm without acute ST-T wave changes. An echocardiogram shows an ejection fraction of around 45% with basal and mid inferior wall hypokinesis. The patient had acute non ST-segment elevation ND in the setting of diabetic ketoacidosis. As he is chest pain free, not in congestive heart failure and has renal insufficiency, we decided to continue to treat him with optimal medical therapy. I am going to start him on aspirin, Plavix, intravenous heparin. Blood pressure tolerating, start him on beta blockers. At the moment, he is hypotensive, has received fluid boluses and was on Levophed earlier. Doing a heart catheterization on him at this time exposes him to the risk of contrast induced nephropathy without any clear-cut benefit. However, if he develops persistent chest pain or other high-risk markers, I will consider taking him for emergent cardiac catheterization through today. Otherwise, my preference is to hydrate him and consider cardiac cath either tomorrow or on Thursday. PAST MEDICAL HISTORY: Significant for coronary artery disease, status post angioplasty, peripheral vascular disease, insulin-requiring diabetes. MEDICATIONS: Medications at home include insulin, aspirin and vitamin D. ALLERGIES: There are no known drug allergies. FAMILY HISTORY: Negative for premature coronary artery disease. SOCIAL HISTORY: Negative for smoking. There is no history of EtOH abuse or drug abuse. REVIEW OF SYSTEMS: HEENT is unremarkable. CARDIAC as described above. RESPIRATORY negative. GI negative. GENITOURINARY: Negative. ALLERGY/IMMUNOLOGY: Negative. SKIN negative. MUSCULOSKELETAL negative. ENDOCRINE negative. HEMATOLOGICAL: Negative. DERM negative. CONSTITUTIONAL negative. ONCOLOGICAL negative. TRAY ROOM WORKER is negative. ENDOCRINE: Significant for diabetic ketoacidosis. PHYSICAL EXAMINATION: Heart rate is 95 beats per minute. Blood pressure is 90/50. Respiratory rate is 23, O2 saturation is 97%. There is no jugular venous distention. Carotid upstroke is normal. There is no bruit. Chest exam reveals good air entry bilaterally. There are no crackles or rhonchi. Heart exam reveals first and second heart sounds. No gallop. No murmur. No rub. Abdomen is soft, nontender. Examination of extremities did not reveal any edema. Peripheral pulses are felt. LAB: Show that the potassium is 4. Creatinine is 1.4. Anion gap is 8. The CO2 bicarb levels are improving. It was 7 when he first came, it is up to 16. ASSESSMENT: 1. Acute non ST-segment elevation myocardial infarction. 2. Diabetic ketoacidosis. 3. Acute renal failure. PLAN: The patient will be treated with IV heparin, aspirin, Plavix, continue Levophed and IV fluids. Once his blood pressure improves, I will start beta blockers and I will reassess him tomorrow morning. The patient has elevated white cell count. The exact etiology of which is not clear. I am going to let Dr. Ovalle the admitting doctor to address this further. MMODL / IJN: [id number] /
--- NOTE | 2021-03-23 13:54 | P.HPIM ---
History of Present Illness This is a pleasant 60 years old male with multiple medical problems including heart failure, diabetes mellitus, hypertension, hyperlipidemia, osteoarthritis, pulmonary embolism. Patient does not follow up with PCP he was to see Dr. Bobo but retired. 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 Presents with nausea vomiting and diarrhea chest pain. Patient says that she's been having nausea vomiting and did do the for the last 2 days, no blood. He doesn't know pulmonary times a day ago but states his bowel movements are soft. He denies abdominal pain. Also was complaining of from chest pain over the last 2 days mainly in the left shoulder radiating to both the left arm on the chest, felt like mild. No dy spnea. Also patient has a neurostimulator in his neck and lower back. When he was checking his sugar noticed it is elevated more than 600 so decided to come to emergency room, usually he follows up with Dr. Mc for his insulin pump but since last November he noticed that his sugar was been trending up to 400. Blood pressure on the low side 84/49, saturating 99% on 2 L of oxygen via nasal cannula Labs showing leukocytosis of 27.6K. hemoglobin normal at 12.3 creatinine elevated at 1.4 as well as troponin 69.2. Glucose 85-113. Liver enzymes elevated. Urinalysis is not suspicious of infection, acetone positive Coronavirus not detected. EKG shows sinus tachycardia at 113, Chest x-ray:increased right lower lobe density may reflect development infiltrate In the emergency room patient received several normal saline boluses, ceftriaxone, Zithromax, Protonix twice daily IV, D5 half-normal saline he is currently on Levophed Review of Systems CONSTITUTIONAL: No fever, no malaise, no fatigue. HEENT: No recent visual problems or hearing problems. Denied any sore throat. CARDIOVASCULAR: No orthopnea, PND, no palpitations, no syncope. PULMONARY: No shortness of breath, no cough, no hemoptysis. GASTROINTESTINAL: No diarrhea, no nausea, no vomiting, no abdominal pain. Normoactive bowel sounds. NEUROLOGICAL: No headaches, no weakness, no numbness. HEMATOLOGICAL: Denies any bleeding or petechiae. GENITOURINARY: Denies any burning micturition, frequency, or urgency. MUSCULOSKELETAL/RHEUMATOLOGICAL: Denies any joint pain, swelling, or any muscle pain. ENDOCRINE: Denies any polyuria or polydipsia. Past Medical History Past Medical History: Coronary Artery Disease (CAD), Heart Failure, COPD, Diabetes Mellitus, GI Bleed, Hyperlipidemia, Hypertension, Osteoarthritis (OA), Pneumonia, Pulmonary Embolus (PE), Renal Disease, Respiratory Disorder, Vascular Disorder Additional Past Medical History / Comment(s): hx. 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 History of Any Multi-Drug Resistant Organisms: MRSA Date of last positivie culture/infection: 03/15/17 MDRO Source:: genital Past Surgical History: Back Surgery, Cholecystectomy, Heart Catheterization, Heart Catheterization With Stent Additional Past Surgical History / Comment(s): EGD's, 07/26/15 IVC filter, BACK STIMULATORS x 2 -cervical and lumbar,FEMORAL BYPASS RT LEG X3, metal chips removed from bilateral eyes Past Anesthesia/Blood Transfusion Reactions: No Reported Reaction Additional Past Anesthesia/Blood Transfusion Reaction / Comment(s): Pt has received blood transfusions without reaction. Date of Last Stent Placement:: 1999 Past Psychological History: Anxiety, Depression Additional Psychological History / Comment(s): Pt lives with his spouse. He is O2 dependent at 3L/NC ATC. He has a cane and walker he uses if needed. Smoking Status: Current some day smoker Past Alcohol Use History: None Reported Additional Past Alcohol Use History / Comment(s): pt states he quit smoking 03/2016 Past Drug Use History: None Reported - Past Family History Father History Unknown: Yes Family Medical History: Myocardial Infarction ([place]) Additional Family Medical History / Comment(s): due to heart attack Mother History Unknown: Yes Family Medical History: Cancer Additional Family Medical History / Comment(s): LUNG CANCER Medications and Allergies Home Medications Medication Instructions Recorded Confirmed Type Cholecalciferol [Vitamin D3] 50 mcg PO DAILY 02/22/16 03/22/21 History INSULIN LISPRO (For Pump) [humaLOG 0.01 units SQ-PUMP CONTINUOUS 10/29/16 03/22/21 History (For Pump)] Aspirin EC [Ecotrin Low Dose] 81 mg PO DAILY 03/22/21 03/22/21 History Allergies Allergy/AdvReac Type Severity Reaction Status Date / Time No Known Allergies Allergy Verified 03/22/21 18:59 Physical Exam Vitals: Vital Signs Temp Pulse Resp BP Pulse Ox 03/23/21 07:36 99 03/23/21 07:00 98 22 84/49 97 03/23/21 06:45 100 10 L 110/61 95 03/23/21 06:30 100 26 H 81/32 97 03/23/21 06:15 97 22 82/54 97 03/23/21 06:00 98 22 82/54 99 03/23/21 05:00 98 14 96/64 98 03/23/21 04:00 97.7 F 99 20 72/42 96 03/23/21 03:00 100 21 86/52 97 03/23/21 02:00 105 H 19 73/46 96 03/23/21 01:00 102 H 20 92/57 96 03/23/21 00:15 102 H 17 90/57 99 03/23/21 00:00 97.7 F 105 H 15 88/59 96 03/22/21 23:00 103 H 22 92/50 99 03/22/21 22:00 106 H 25 H 87/56 99 03/22/21 21:00 97.9 F 111 H 22 78/52 97 03/22/21 20:40 25 H 03/22/21 20:30 98.0 F 108 H 18 103/68 97 03/22/21 19:25 97.9 F 14 03/22/21 19:22 98.4 F 105 H 18 115/77 97 03/22/21 14:45 98.8 F 110 H 22 125/27 100 Intake and Output 03/22/21 03/23/21 03/23/21 22:59 06:59 14:59 Intake Total 7591.822 9696.063 155.475 Output Total 0 540 45 Balance 8041.838 5477.063 110.475 Intake: Intake, IV Titration 8327.257 2715.063 155.475 Amount Dextrose 5%-0.45% NaCl 1, 600 150 000 ml @ 150 mls/hr IV . Q6H44M [facility]ACE[facility] with Potassium Chloride 20 meq Rx#: [id number] Insulin Regular 100 unit 41.669 68.901 In Sodium Chloride 0.9% 100 ml @ 0.1 UNITS/KG/HR 6.597 mls/hr IV .[id number] [facility] Rx#:[id number] Norepinephrine 4 mg In 19.162 5.475 Sodium Chloride 0.9% 250 ml @ 0.05 MCG/KG/MIN 12. 443 mls/hr IV .[id number] [facility] Rx#:[id number] Sodium Chloride 0.9% 1, 400 800 000 ml @ 200 mls/hr IV . Q5H [facility] Rx#:[id number] Sodium Chloride 0.9% 2, 1000 1000 000 ml @ 999 mls/hr IV . Q2H1M ONE Rx#:[id number] Output: Urine 0 540 45 Other: Voiding Method Indwelling Catheter Weight 65.317 kg 72.2 kg GENERAL: The patient is alert and oriented x3, not in any acute distress. Well developed, well nourished. HEENT: Pupils are round and equally reacting to light. EOMI. No scleral icterus. No conjunctival pallor. Normocephalic, atraumatic. No pharyngeal erythema. No thyromegaly. CARDIOVASCULAR: S1 and S2 present. No murmurs, rubs, or gallops. PULMONARY: Chest is clear to auscultation, no wheezing or crackles. ABDOMEN: Soft, nontender, nondistended, normoactive bowel sounds. No palpable organomegaly. MUSCULOSKELETAL: No joint swelling or deformity. EXTREMITIES: No cyanosis, clubbing, or pedal edema. NEUROLOGICAL: Gross neurological examination did not reveal any focal deficits. SKIN: No rashes. No petechiae Results CBC & Chem 7: 03/23/21 05:24 03/23/21 05:24 Labs: Abnormal Lab Results - Last 24 Hours (Table) 03/22/21 03/22/21 03/22/21 Range/Units 14:48 16:52 16:52 WBC 25.5 H (3.8-10.6) k/uL RBC 4.14 L (4.30-5.90) m/uL Hgb (13.0-17.5) gm/dL Hct (39.0-53.0) % MCV 100.6 H (80.0-100.0) fL Neutrophils # 23.3 H (1.3-7.7) k/uL Monocytes # (0-1.0) k/uL Sodium 131 L (137-145) mmol/L Potassium 6.1 H* (3.5-5.1) mmol/L Chloride (98-107) mmol/L Carbon Dioxide 7 L* (22-30) mmol/L BUN 41 H (9-20) mg/dL Creatinine 1.74 H (0.66-1.25) mg/dL Glucose 714 H* (74-99) mg/dL POC Glucose (mg/dL) >600 H (75-99) mg/dL Calcium (8.4-10.2) mg/dL Phosphorus (2.5-4.5) mg/dL Alkaline Phosphatase 166 H (38-126) U/L Troponin I (0.000-0.034) ng/mL Total Protein 5.9 L (6.3-8.2) g/dL Urine Glucose (UA) (Negative) Urine Ketones (Negative) 03/22/21 03/22/21 03/22/21 Range/Units 16:52 16:52 17:03 WBC (3.8-10.6) k/uL RBC (4.30-5.90) m/uL Hgb (13.0-17.5) gm/dL Hct (39.0-53.0) % MCV (80.0-100.0) fL Neutrophils # (1.3-7.7) k/uL Monocytes # (0-1.0) k/uL Sodium (137-145) mmol/L Potassium (3.5-5.1) mmol/L Chloride (98-107) mmol/L Carbon Dioxide (22-30) mmol/L BUN (9-20) mg/dL Creatinine (0.66-1.25) mg/dL Glucose (74-99) mg/dL POC Glucose (mg/dL) >600 H (75-99) mg/dL Calcium (8.4-10.2) mg/dL Phosphorus 6.7 H (2.5-4.5) mg/dL Alkaline Phosphatase (38-126) U/L Troponin I 3.940 H* (0.000-0.034) ng/mL Total Protein (6.3-8.2) g/dL Urine Glucose (UA) (Negative) Urine Ketones (Negative) 03/22/21 03/22/21 03/22/21 Range/Units 17:57 18:59 20:18 WBC (3.8-10.6) k/uL RBC (4.30-5.90) m/uL Hgb (13.0-17.5) gm/dL Hct (39.0-53.0) % MCV (80.0-100.0) fL Neutrophils # (1.3-7.7) k/uL Monocytes # (0-1.0) k/uL Sodium (137-145) mmol/L Potassium (3.5-5.1) mmol/L Chloride (98-107) mmol/L Carbon Dioxide (22-30) mmol/L BUN (9-20) mg/dL Creatinine (0.66-1.25) mg/dL Glucose (74-99) mg/dL POC Glucose (mg/dL) >600 H 573 H 477 H (75-99) mg/dL Calcium (8.4-10.2) mg/dL Phosphorus (2.5-4.5) mg/dL Alkaline Phosphatase (38-126) U/L Troponin I (0.000-0.034) ng/mL Total Protein (6.3-8.2) g/dL Urine Glucose (UA) (Negative) Urine Ketones (Negative) 03/22/21 03/22/21 03/22/21 Range/Units 20:38 21:16 22:01 WBC (3.8-10.6) k/uL RBC (4.30-5.90) m/uL Hgb (13.0-17.5) gm/dL Hct (39.0-53.0) % MCV (80.0-100.0) fL Neutrophils # (1.3-7.7) k/uL Monocytes # (0-1.0) k/uL Sodium 132 L (137-145) mmol/L Potassium (3.5-5.1) mmol/L Chloride (98-107) mmol/L Carbon Dioxide 9 L* (22-30) mmol/L BUN 45 H (9-20) mg/dL Creatinine 1.73 H (0.66-1.25) mg/dL Glucose 467 H (74-99) mg/dL POC Glucose (mg/dL) 500 H 435 H (75-99) mg/dL Calcium (8.4-10.2) mg/dL Phosphorus 4.8 H (2.5-4.5) mg/dL Alkaline Phosphatase (38-126) U/L Troponin I (0.000-0.034) ng/mL Total Protein (6.3-8.2) g/dL Urine Glucose (UA) (Negative) Urine Ketones (Negative) 03/22/21 03/22/21 03/23/21 Range/Units 23:03 23:58 01:00 WBC (3.8-10.6) k/uL RBC (4.30-5.90) m/uL Hgb (13.0-17.5) gm/dL Hct (39.0-53.0) % MCV (80.0-100.0) fL Neutrophils # (1.3-7.7) k/uL Monocytes # (0-1.0) k/uL Sodium 134 L (137-145) mmol/L Potassium (3.5-5.1) mmol/L Chloride 109 H (98-107) mmol/L Carbon Dioxide 14 L (22-30) mmol/L BUN 45 H (9-20) mg/dL Creatinine 1.56 H (0.66-1.25) mg/dL Glucose 266 H (74-99) mg/dL POC Glucose (mg/dL) 372 H 318 H (75-99) mg/dL Calcium (8.4-10.2) mg/dL Phosphorus (2.5-4.5) mg/dL Alkaline Phosphatase (38-126) U/L Troponin I (0.000-0.034) ng/mL Total Protein (6.3-8.2) g/dL Urine Glucose (UA) (Negative) Urine Ketones (Negative) 03/23/21 03/23/21 03/23/21 Range/Units 01:00 01:02 02:11 WBC (3.8-10.6) k/uL RBC (4.30-5.90) m/uL Hgb (13.0-17.5) gm/dL Hct (39.0-53.0) % MCV (80.0-100.0) fL Neutrophils # (1.3-7.7) k/uL Monocytes # (0-1.0) k/uL Sodium (137-145) mmol/L Potassium (3.5-5.1) mmol/L Chloride (98-107) mmol/L Carbon Dioxide (22-30) mmol/L BUN (9-20) mg/dL Creatinine (0.66-1.25) mg/dL Glucose (74-99) mg/dL POC Glucose (mg/dL) 269 H 200 H (75-99) mg/dL Calcium (8.4-10.2) mg/dL Phosphorus (2.5-4.5) mg/dL Alkaline Phosphatase (38-126) U/L Troponin I 58.500 H* (0.000-0.034) ng/mL Total Protein (6.3-8.2) g/dL Urine Glucose (UA) (Negative) Urine Ketones (Negative) 03/23/21 03/23/21 03/23/21 Range/Units 02:40 03:04 04:03 WBC (3.8-10.6) k/uL RBC (4.30-5.90) m/uL Hgb (13.0-17.5) gm/dL Hct (39.0-53.0) % MCV (80.0-100.0) fL Neutrophils # (1.3-7.7) k/uL Monocytes # (0-1.0) k/uL Sodium (137-145) mmol/L Potassium (3.5-5.1) mmol/L Chloride (98-107) mmol/L Carbon Dioxide (22-30) mmol/L BUN (9-20) mg/dL Creatinine (0.66-1.25) mg/dL Glucose (74-99) mg/dL POC Glucose (mg/dL) 165 H 141 H (75-99) mg/dL Calcium (8.4-10.2) mg/dL Phosphorus (2.5-4.5) mg/dL Alkaline Phosphatase (38-126) U/L Troponin I (0.000-0.034) ng/mL Total Protein (6.3-8.2) g/dL Urine Glucose (UA) 4+ H (Negative) Urine Ketones 1+ H (Negative) 03/23/21 03/23/21 03/23/21 Range/Units 05:24 05:24 05:24 WBC 27.6 H (3.8-10.6) k/uL RBC 3.87 L (4.30-5.90) m/uL Hgb 12.3 L (13.0-17.5) gm/dL Hct 35.9 L (39.0-53.0) % MCV (80.0-100.0) fL Neutrophils # 22.5 H (1.3-7.7) k/uL Monocytes # 2.3 H (0-1.0) k/uL Sodium 136 L (137-145) mmol/L Potassium (3.5-5.1) mmol/L Chloride 112 H (98-107) mmol/L Carbon Dioxide 16 L (22-30) mmol/L BUN 44 H (9-20) mg/dL Creatinine 1.40 H (0.66-1.25) mg/dL Glucose (74-99) mg/dL POC Glucose (mg/dL) (75-99) mg/dL Calcium 7.6 L (8.4-10.2) mg/dL Phosphorus (2.5-4.5) mg/dL Alkaline Phosphatase (38-126) U/L Troponin I 69.200 H* (0.000-0.034) ng/mL Total Protein (6.3-8.2) g/dL Urine Glucose (UA) (Negative) Urine Ketones (Negative) 03/23/21 Range/Units 07:09 WBC (3.8-10.6) k/uL RBC (4.30-5.90) m/uL Hgb (13.0-17.5) gm/dL Hct (39.0-53.0) % MCV (80.0-100.0) fL Neutrophils # (1.3-7.7) k/uL Monocytes # (0-1.0) k/uL Sodium (137-145) mmol/L Potassium (3.5-5.1) mmol/L Chloride (98-107) mmol/L Carbon Dioxide (22-30) mmol/L BUN (9-20) mg/dL Creatinine (0.66-1.25) mg/dL Glucose (74-99) mg/dL POC Glucose (mg/dL) 113 H (75-99) mg/dL Calcium (8.4-10.2) mg/dL Phosphorus (2.5-4.5) mg/dL Alkaline Phosphatase (38-126) U/L Troponin I (0.000-0.034) ng/mL Total Protein (6.3-8.2) g/dL Urine Glucose (UA) (Negative) Urine Ketones (Negative) Thrombosis Risk Factor Assmnt - Choose All That Apply Each Factor Represents 1 point: Abnormal pulmonary function (COPD), Age 41-60 years Thrombosis Risk Factor Assessment Total Risk Factor Score: 2 Thrombosis Risk Factor Assessment Level: Low Risk Assessment and Plan Assessment: Elevated troponin, suspicious for non STEMI right lower lobe pneumonia Preoperative pressure needed pressors, Multifactorial, hypovolemic, septic and could be secondary to above and cardiogenic shock Postoperative occult blood in stool, with mild anemia only. Mostly related to his presentation of acute gastroenteritis Acute kidney injury Chronic heart failure, diastolic Hypertension Hyperlipidemia Diabetes mellitus, with hyperglycemia History of osteoarthritis history of pulmonary embolism Anxiety and depression, not an active fixation Plan: This is a pleasant 60 years old male who presents with right pneumonia and septic shock, continue with antibiotic, continue with pressors, pulmonary/critical care consult. Cardiology consult. GI consult. Continue with Protonix Labs and medication were reviewed.. Continue same treatment. Continue with symptomatic treatment. Resume home medication. Monitor lytes and vitals. DVT and GI prophylaxis. Further recommendations depends on the clinical course of the patient GI Prophylaxis: Ppi Prognosis is guarded
--- NOTE | 2021-03-23 14:00 | ECHOF ---
Referral Reason:Elevated troponin; Assess LV function MEASUREMENTS -------- HEIGHT: 175.3 cm WEIGHT: 72.1 kg BP: 90/52 RVIDd: 2.9 cm (< 3.3) IVSd: 1.2 cm (0.6 - 1.1) LVIDd: 3.7 cm (3.9 - 5.3) LVPWd: 1.4 cm (0.6 - 1.1) IVSs: 1.7 cm LVIDs: 3.0 cm LVPWs: 1.5 cm Ao Diam: 2.7 cm (2.0 - 3.7) AV Cusp: 2.1 cm (1.5 - 2.6) LA Diam: 3.8 cm (2.7 - 3.8) MV EXCURSION: 19.423 mm (> 18.000) MV EF SLOPE: 104 mm/s (70 - 150) EPSS: 0.4 cm MV E Mendez: 0.73 m/s MV DecT: 160 ms MV A Mendez: 0.81 m/s MV E/A Ratio: 0.90 RAP: 5.00 mmHg RVSP: 38.00 mmHg FINDINGS -------- Sinus rhythm. This was a technically difficult study with suboptimal apical views. The left ventricular size is normal. There is mild concentric left ventricular hypertrophy. Overa ll left ventricular systolic function is mild-moderately impaired with, an EF between 40 - 45 %. Mi tral Doppler inflow pattern suggests diastolic filling abnormality {E/E'}. Mid inferoseptal LV wall motion is hypokinetic. Inferiorlateral Hypokinesis The right ventricle is normal in size. The left atrium is mildly dilated. The right atrium was not well visualized. 5.0mg of Lumason was utilized for enhancement of images Interatrial and interventricular septum intact. There is no evidence of aortic regurgitation. There is no evidence of aortic stenosis. Mild mitral regurgitation is present. Mild tricuspid regurgitation present. There is mild pulmonary hypertension. The right ventricular systolic pressure, as measured by Doppler, is 38.00mmHg. There is no pulmonic regurgitation present. The aortic root size is normal. Normal inferior vena cava with normal inspiratory collapse consistent with estimated right atrial pre ssure of 5 mmHg. There is no pericardial effusion. CONCLUSIONS -------- 1. The left ventricular size is normal. 2. There is mild concentric left ventricular hypertrophy. 3. Overall left ventricular systolic function is mild-moderately impaired with, an EF between 40 - 45 %. 4. Mitral Doppler inflow pattern suggest diastolic filling abnormality {E/E'}. 5. Mid inferoseptal LV wall motion is hypokinetic. 6. Inferiorlateral Hypokinesis 7. The left atrium is mildly dilated. 8. Mild mitral regurgitation is present. 9. Mild tricuspid regurgitation present. 10. There is mild pulmonary hypertension. 11. The right ventricular systolic pressure, as measured by Doppler, is 38.00mmHg. BAGEL MAKER: Samanta Wilson RDCS
[2021-03-23 14:11] LABS: Glucose,Whole Blood 140 mg/dL (75-99)
[2021-03-23 15:29] LABS: Glucose,Whole Blood 168 mg/dL (75-99)
[2021-03-23] MEDS: ACETAMINOPHEN TAB 325 MG TAB PO PRN ×3 (15:32→23:57)
[2021-03-23 16:30] LABS: African American GFR (CKD) >90 (>60 ml/min/1.73 sqM); Anion Gap 6 mmol/L; Blood Urea Nitrogen 34 mg/dL (9-20); Calcium 7.7 mg/dL (8.4-10.2); Carbon Dioxide 14 mmol/L (22-30); Chloride 115 mmol/L (98-107); Glucose 156 mg/dL (74-99); Non-African American GFR(CKD) 83 (>60 ml/min/1.73 sqM); Sodium 135 mmol/L (137-145)
[2021-03-23 16:40] LABS: Potassium 4.5 mmol/L (3.5-5.1)
[2021-03-23 16:52] LABS: Glucose,Whole Blood 157 mg/dL (75-99)
[2021-03-23 18:02] LABS: Glucose,Whole Blood 182 mg/dL (75-99)
[2021-03-23 19:11] LABS: Glucose,Whole Blood 168 mg/dL (75-99)
[2021-03-23 20:06] LABS: Glucose,Whole Blood 203 mg/dL (75-99)
[2021-03-23] MEDS: AZITHROMYCIN 500 MG TAB PO SCH (20:16)
[2021-03-23] MEDS ORDERED: guaiFENesin SYRUP 100MG/5ML 200 MG/10 ML CUP PO PRN (20:30)
[2021-03-23] MEDS: D5-0.45% NACL WITH KCL 20MEQ/L 1,000 ML IV SCH (22:04)
[2021-03-23 22:11] LABS: Glucose,Whole Blood 228 mg/dL (75-99)
[2021-03-23 22:43] LABS: African American GFR (CKD) >90 (>60 ml/min/1.73 sqM); Anion Gap 6 mmol/L; Blood Urea Nitrogen 27 mg/dL (9-20); Calcium 7.8 mg/dL (8.4-10.2); Carbon Dioxide 15 mmol/L (22-30); Chloride 114 mmol/L (98-107); Glucose 216 mg/dL (74-99); Non-African American GFR(CKD) >90 (>60 ml/min/1.73 sqM); Potassium 4.5 mmol/L (3.5-5.1); Sodium 135 mmol/L (137-145)
[2021-03-23 23:54] LABS: Glucose,Whole Blood 237 mg/dL (75-99)
[2021-03-24 01:55] LABS: Glucose,Whole Blood 252 mg/dL (75-99)
[2021-03-24 04:07] LABS: Glucose,Whole Blood 267 mg/dL (75-99)
[2021-03-24] MEDS: INSULIN REGULAR 100 UNIT in SODIUM CHLORIDE 0.9% 100 ML IV SCH ×2 (04:09→18:44)
[2021-03-24] MEDS: MORPHINE SULFATE 4 MG/ML SYRINGE IV PRN (04:09)
[2021-03-24] MEDS: NOREPINEPHRINE 4 MG in SODIUM CHLORIDE 0.9% 250 ML IV SCH ×2 (04:12→23:31)
[2021-03-24] MEDS: D5-0.45% NACL WITH KCL 20MEQ/L 1,000 ML IV SCH ×4 (04:14→23:31)
[2021-03-24 04:36] LABS: Basophils % (A) 0 %; Eosinophils % (A) 0 %; HCT 35.3 % (39.0-53.0); HGB 11.9 gm/dL (13.0-17.5); Lymphocytes # (A) 1.6 k/uL (1.0-4.8); Lymphocytes % (A) 9 %; MCH 31.5 pg (25.0-35.0); MCHC 33.7 g/dL (31.0-37.0); MCV 93.5 fL (80.0-100.0); Mean Platelet Volume 7.9; Monocytes % (A) 5 %; Neutrophils # (A) 15.7 k/uL (1.3-7.7); Neutrophils % (A) 84 %; Platelet Count 227 k/uL (150-450); RBC 3.77 m/uL (4.30-5.90); RDW 14.4 % (11.5-15.5); WBC 18.7 k/uL (3.8-10.6)
[2021-03-24 04:54] LABS: African American GFR (CKD) >90 (>60 ml/min/1.73 sqM); Anion Gap 3 mmol/L; Blood Urea Nitrogen 21 mg/dL (9-20); Calcium 7.7 mg/dL (8.4-10.2); Carbon Dioxide 19 mmol/L (22-30); Chloride 116 mmol/L (98-107); Glucose 262 mg/dL (74-99); Non-African American GFR(CKD) >90 (>60 ml/min/1.73 sqM); Potassium 4.4 mmol/L (3.5-5.1); Sodium 138 mmol/L (137-145)
[2021-03-24 04:56] LABS: Partial Thromboplastin Time 49.1 sec (22.0-30.0); Prothrombin Time 10.5 sec (9.0-12.0)
[2021-03-24 06:26] LABS: Glucose,Whole Blood 245 mg/dL (75-99)
--- NOTE | 2021-03-24 06:30 | XR ---
EXAMINATION TYPE: XR chest 1V DATE OF EXAM: 03/24/2021 CLINICAL HISTORY: Difficulty breathing progress study. TECHNIQUE: Single AP portable semiupright view of the chest is obtained. COMPARISON: Chest x-ray from 2 days earlier and older studies FINDINGS: Osseous structures remain demineralized. Spinal and generalized neck stimulators redemonst rated. Cardiac silhouette size stable and mildly enlarged. Chronic emphysematous and parenchymal rizo ges with increasing mid to lower lung opacities bilaterally. Suspect developing small to tiny bilater al pleural effusions. IMPRESSION: New small tiny bilateral pleural effusions. New bilateral mid to lower lung multifocal ed cedric and/or infiltrates on background of mild cardiomegaly and chronic changes.
[2021-03-24 08:03] LABS: Glucose,Whole Blood 227 mg/dL (75-99)
[2021-03-24 09:54] LABS: Glucose,Whole Blood 269 mg/dL (75-99)
[2021-03-24] MEDS ORDERED: fentaNYL (PF) 50 MCG/ML 2 ML AMP ONE (10:13)
[2021-03-24] MEDS ORDERED: LIDOCAINE 1% INJ 10MG/ML (20 ML MDV) ONE (10:13)
[2021-03-24] MEDS ORDERED: fentaNYL (PF) 50 MCG/ML 2 ML AMP IVP ONE (10:25)
[2021-03-24] MEDS ORDERED: MIDAZOLAM 2 MG/2 ML VIAL IVP ONE ×2 (10:25→10:33)
[2021-03-24] MEDS ORDERED: LIDOCAINE 1% INJ 10MG/ML (20 ML MDV) SQ ONE (10:25)
[2021-03-24] MEDS: ASPIRIN 81 MG PO SCH (10:39)
[2021-03-24] MEDS: CLOPIDOGREL 75 MG TAB PO SCH (10:40)
[2021-03-24] MEDS ORDERED: FUROSEMIDE 10 MG/ML 4 ML VIAL IV ONE (10:40)
[2021-03-24] MEDS: CHOLECALCIFEROL 25 MCG (1000 IU) TABLET PO SCH (10:40)
[2021-03-24] MEDS: HEPARIN SOD,PORK IN 0.45% NACL 25,000 UNIT in 0.45% NACL 1 250ML.BAG IV SCH (10:40)
[2021-03-24] MEDS: PANTOPRAZOLE 40 MG/10 ML VIAL IV SCH ×2 (10:40→21:04)
[2021-03-24] MEDS ORDERED: FUROSEMIDE 10 MG/ML 4 ML VIAL ONE (10:44)
[2021-03-24] MEDS ORDERED: MORPHINE SULFATE 4 MG/ML SYRINGE ONE (10:46)
[2021-03-24] MEDS ORDERED: BIVALIRUDIN BOLUS 250 MG/50 ML IV ONE (10:52)
[2021-03-24] MEDS ORDERED: MORPHINE SULFATE 4 MG/ML SYRINGE IVP ONE (10:52)
[2021-03-24] MEDS ORDERED: NITROGLYCERIN 1000MCG/10ML SYRINGE INTRACORON ONE (10:58)
[2021-03-24] MEDS ORDERED: IV FLUID CONTINUATION 800 ML IV ONE (10:58)
[2021-03-24] MEDS ORDERED: BIVALIRUDIN 250 MG in SODIUM CHLORIDE 0.9% 50 ML IV ONE (10:59)
[2021-03-24] MEDS ORDERED: HEPARIN SODIUM 1,000 UN/ML (10ML VL) ONE (11:04)
[2021-03-24 11:09] LABS: Glucose,Whole Blood 261 mg/dL (75-99)
[2021-03-24] MEDS ORDERED: CLOPIDOGREL 75 MG TAB ONE (11:09)
[2021-03-24] MEDS ORDERED: CLOPIDOGREL 75 MG TAB PO ONE (11:11)
[2021-03-24] MEDS ORDERED: IOPAMIDOL-370 125ML BTL INJ ONE (11:12)
[2021-03-24] MEDS ORDERED: ZOLPIDEM 5 MG TAB PO PRN (11:17)
[2021-03-24] MEDS ORDERED: ATROPINE SULFATE 0.1 MG/ML 10ML SYRINGE IV PRN (11:17)
[2021-03-24] MEDS ORDERED: MAG HYDROX/AL HYDROX/SIMETH 30 ML CUP PO PRN (11:17)
[2021-03-24] MEDS ORDERED: NITROGLYCERIN SL TABS 0.4 MG TAB SUBLINGUAL PRN (11:17)
[2021-03-24] MEDS ORDERED: RX INFO: IV CONTRAST WAS GIVEN 1 EACH MISC MISCELLANE PRN (11:17)
[2021-03-24] MEDS ORDERED: SODIUM CHLORIDE 0.9% 1,000 ML IV SCH (11:30)
--- NOTE | 2021-03-24 11:45 | P.PN ---
Subjective This is a pleasant 60 years old male with multiple medical problems including heart failure, diabetes mellitus, hypertension, hyperlipidemia, osteoarthritis, pulmonary embolism. Patient does not follow up with PCP he was to see Dr. Bobo but retired. He has a history of pulmonary fibrosis on 3 L oxygen at home, however he haven't talked up with his taping foreman says start oral, but about 1.5 years ago. Presents with nausea vomiting and diarrhea chest pain. Patient says that she's been having nausea vomiting and did do the for the last 2 days, no blood. He doesn't know pulmonary times a day ago but states his bowel movements are soft. He denies abdominal pain. Also was complaining of from chest pain over the last 2 days mainly in the left shoulder radiating to both the left arm on the chest, felt like mild. No dyspnea. Also patient has a neurostimulator in his neck and lower back. When he was checking his sugar noticed it is elevated more than 600 so decided to come to emergency room, usually he follows up with Dr. Mc for his insulin pump but since last November he noticed that his sugar was been trending up to 400. Blood pressure on the low side 84/49, saturating 99% on 2 L of oxygen via nasal cannula Labs showing leukocytosis of 27.6K. hemoglobin normal at 12.3 creatinine elevated at 1.4 as well as troponin 69.2. Glucose 85-113. Liver enzymes elevated. Urinalysis is not suspicious of infection, acetone positive Coronavirus not detected. EKG shows sinus tachycardia at 113, Chest x-ray:increased right lower lobe density may reflect development infiltrate In the emergency room patient received several normal saline boluses, ceftriaxone, Zithromax, Protonix twice daily IV, D5 half-normal saline he is currently on Levophed 03/24/2021 Patient states that his breathing feels better today and minimal left sh oulder/chest pain. No significant shortness of breath. No coughing. He is hemodynamically stable and lap showing improvement including trending down WBC 2018.7 K, hemoglobin came down a little bit to 11.9 creatinine back to normal. Glucose is better controlled and his INSULIN drip and currently on a sliding scale. She was kept nothing by mouth this morning before he is possibly going for cardiac cath with cardiology team. He is on D5 half-normal saline at 50 mL/h and has been treated for pneumonia with Rocephin and Zithromax No need for pressors anymore Review of Systems CONSTITUTIONAL: No fever, no malaise, no fatigue. HEENT: No recent visual problems or hearing problems. Denied any sore throat. CARDIOVASCULAR: No orthopnea, PND, no palpitations, no syncope. PULMONARY: No shortness of breath, no cough, no hemoptysis. GASTROINTESTINAL: No diarrhea, no nausea, no vomiting, no abdominal pain. Normoactive bowel sounds. NEUROLOGICAL: No headaches, no weakness, no numbness. Active Medications Generic Name Dose Route Start Last Admin Trade Name Freq PRN Reason Stop Dose Admin Acetaminophen 650 mg 03/22/21 18:47 03/23/21 23:57 Acetaminophen Tab 325 Mg Tab PO 650 mg Q4HR PRN Administration Fever and/or Mild Pain Al Hydroxide/Mg Hydroxide 30 ml 03/24/21 11:17 Mag Hydrox/Al Hydrox/Simeth 30 Ml Cup PO Q4HR PRN Heartburn Aspirin 81 mg 03/23/21 09:00 03/24/21 10:39 Aspirin 81 Mg PO Not Given DAILY TRACE[facility] Atorvastatin Calcium 80 mg 03/24/21 21:00 Atorvastatin 80 Mg Tab PO HS TRACE[facility] Atropine Sulfate 0.5 mg 03/24/21 11:17 Atropine Sulfate 0.1 Mg/Ml 10ml Syringe IV ONCE PRN Symptomatic Bradycardia Azithromycin 500 mg 03/23/21 20:00 03/23/21 20:16 Azithromycin 500 Mg Tab PO 500 mg DAILY@2000 TRACEY Administration Cholecalciferol 50 mcg 03/23/21 09:00 03/24/21 10:40 Cholecalciferol 25 Mcg (1000 Iu) Tablet PO Not Given DAILY [facility] Clopidogrel Bisulfate 75 mg 03/23/21 11:15 03/24/21 10:40 Clopidogrel 75 Mg Tab PO Not Given DAILY TRACEY Guaifenesin 200 mg 03/23/21 20:30 03/23/21 22:00 Guaifenesin Syrup 100mg/5ml 200 Mg/10 Ml Cup PO 200 mg Q6H PRN Administration Cough Insulin Human Regular 100 unit 101 mls @ 6.597 mls/hr 03/22/21 15:45 03/24/21 04:10 / Sodium Chloride IV 0.05 units/kg/hr .[id number] [facility] 3.5 mls/hr Titration Protocol 0.1 UNITS/KG/HR Norepinephrine Bitartrate 4 mg 254 mls @ 12.443 mls/hr 03/23/21 04:00 03/24/21 04:12 / Sodium Chloride IV Not Given .[id number] [facility] Protocol 0.05 MCG/KG/MIN Ceftriaxone Sodium 1 gm/ 50 mls @ 100 mls/hr 03/23/21 09:30 03/24/21 10:39 Sodium Chloride IVPB Not Given Q24HR [facility] Potassium Chloride/Dextrose/Sod Cl 1,000 mls @ 150 mls/hr 03/23/21 21:00 03/24/21 10:40 D5%-1/2ns-Kcl 20 Meq/L Iv Solution IV Not Given .Q6H40M [facility] Sodium Chloride 1,000 mls @ 75 mls/hr 03/24/21 11:30 Saline 0.9% IV 03/24/21 17:31 .[id number] [facility] Miscellaneous Information 1 each 03/24/21 11:17 Rx Info: Iv Contrast Was Given 1 Each Misc MISCELLANE 03/26/21 11:17 DAILY PRN Per Protocol Morphine Sulfate 4 mg 03/22/21 18:47 03/24/21 04:09 Morphine Sulfate 4 Mg/Ml Syringe IV 4 mg Q2HR PRN Administration Pain Scale 8 to 10 Naloxone HCl 0.2 mg 03/22/21 18:47 Naloxone 0.4 Mg/Ml 1 Ml Vial IV Q2M PRN Opioid Reversal Nitroglycerin 0.4 mg 03/23/21 06:31 03/23/21 06:40 Nitroglycerin Sl Tabs 0.4 Mg Tab SUBLINGUAL 0.4 mg Q5M PRN Administration Chest Pain Pantoprazole Sodium 40 mg 03/22/21 21:00 03/24/21 10:40 Pantoprazole 40 Mg/10 Ml Vial IV Not Given BID TRACEY Zolpidem Tartrate 5 mg 03/24/21 11:17 Zolpidem 5 Mg Tab PO HS PRN Insomnia Objective - Vital Signs Vital signs: Vital Signs Temp 98.4 F 03/24/21 09:01 Pulse 79 03/24/21 09:01 Resp 19 03/24/21 09:01 BP 130/80 03/24/21 09:00 Pulse Ox 96 03/24/21 09:00 Intake & Output 03/23/21 03/24/21 03/24/21 18:59 06:59 18:59 Intake Total 2947.897 1677.442 370 Output Total 1165 1950 275 Balance 1782.897 -272.558 95 Weight 72.2 kg 75.2 kg Intake: IV 2700 1650 370 Dextrose 5%-0.45% NaCl 1, 1650 1650 300 000 ml @ 150 mls/hr IV . Q6H44M [facility] with Potassium Chloride 20 meq Rx#: [id number] Sodium Chloride 0.9% 2, 1000 000 ml @ 999 mls/hr IV . Q2H1M ONE Rx#:[id number] cefTRIAXone 1 gm In 50 Sodium Chloride 0.9% 50 ml @ 100 mls/hr IVPB ONCE STA Rx#:[id number] Intake, IV Titration 247.897 27.442 Amount Dextrose 5%-0.45% NaCl 1, 150 000 ml @ 150 mls/hr IV . Q6H44M [facility] with Potassium Chloride 20 meq Rx#: [id number] Heparin Sod,Pork in 0.45% 50.396 NaCl 25,000 unit In 0.45 % NaCl 1 250ml.bag @ 12 UNITS/KG/HR 8.664 mls/hr IV .Q24H [facility] Rx#: [id number] Insulin Regular 100 unit 9.55 27.442 In Sodium Chloride 0.9% 100 ml @ 0.1 UNITS/KG/HR 6.597 mls/hr IV .[id number] [facility] Rx#:[id number] Norepinephrine 4 mg In 37.951 Sodium Chloride 0.9% 250 ml @ 0.05 MCG/KG/MIN 12. 443 mls/hr IV .[id number] [facility] Rx#:[id number] Output: Urine 1165 1950 275 Other: Voiding Method Indwelling Catheter Indwelling Catheter Indwelling Catheter - Exam GENERAL: The patient is alert and oriented x3, not in any acute distress. Well developed, well nourished. HEENT: Pupils are round and equally reacting to light. EOMI. No scleral icterus. No conjunctival pallor. Normocephalic, atraumatic. No pharyngeal erythema. No thyromegaly. CARDIOVASCULAR: S1 and S2 present. No murmurs, rubs, or gallops. PULMONARY: Chest is clear to auscultation, no wheezing or crackles. ABDOMEN: Soft, nontender, nondistended, normoactive bowel sounds. No palpable organomegaly. MUSCULOSKELETAL: No joint swelling or deformity. EXTREMITIES: No cyanosis, clubbing, or pedal edema. NEUROLOGICAL: Gross neurological examination did not reveal any focal deficits. SKIN: No rashes. no petechiae. - Labs CBC & Chem 7: 03/24/21 03:58 03/24/21 03:58 Labs: Abnormal Lab Results - Last 24 Hours (Table) 03/23/21 03/23/21 03/23/21 Range/Units 05:24 11:57 13:04 WBC (3.8-10.6) k/uL RBC (4.30-5.90) m/uL Hgb (13.0-17.5) gm/dL Hct (39.0-53.0) % Neutrophils # (1.3-7.7) k/uL APTT (22.0-30.0) sec Sodium (137-145) mmol/L Chloride (98-107) mmol/L Carbon Dioxide (22-30) mmol/L BUN (9-20) mg/dL Glucose (74-99) mg/dL POC Glucose (mg/dL) 140 H 151 H (75-99) mg/dL Calcium (8.4-10.2) mg/dL Procalcitonin 7.66 H (0.02-0.09) ng/mL 03/23/21 03/23/21 03/23/21 Range/Units 14:09 15:26 15:58 WBC (3.8-10.6) k/uL RBC (4.30-5.90) m/uL Hgb (13.0-17.5) gm/dL Hct (39.0-53.0) % Neutrophils # (1.3-7.7) k/uL APTT 82.3 H (22.0-30.0) sec Sodium (137-145) mmol/L Chloride (98-107) mmol/L Carbon Dioxide (22-30) mmol/L BUN (9-20) mg/dL Glucose (74-99) mg/dL POC Glucose (mg/dL) 140 H 168 H (75-99) mg/dL Calcium (8.4-10.2) mg/dL Procalcitonin (0.02-0.09) ng/mL 03/23/21 03/23/21 03/23/21 Range/Units 15:58 16:51 18:01 WBC (3.8-10.6) k/uL RBC (4.30-5.90) m/uL Hgb (13.0-17.5) gm/dL Hct (39.0-53.0) % Neutrophils # (1.3-7.7) k/uL APTT (22.0-30.0) sec Sodium 135 L (137-145) mmol/L Chloride 115 H (98-107) mmol/L Carbon Dioxide 14 L (22-30) mmol/L BUN 34 H (9-20) mg/dL Glucose 156 H (74-99) mg/dL POC Glucose (mg/dL) 157 H 182 H (75-99) mg/dL Calcium 7.7 L (8.4-10.2) mg/dL Procalcitonin (0.02-0.09) ng/mL 03/23/21 03/23/21 03/23/21 Range/Units 19:00 20:04 22:02 WBC (3.8-10.6) k/uL RBC (4.30-5.90) m/uL Hgb (13.0-17.5) gm/dL Hct (39.0-53.0) % Neutrophils # (1.3-7.7) k/uL APTT 51.5 H (22.0-30.0) sec Sodium (137-145) mmol/L Chloride (98-107) mmol/L Carbon Dioxide (22-30) mmol/L BUN (9-20) mg/dL Glucose (74-99) mg/dL POC Glucose (mg/dL) 168 H 203 H (75-99) mg/dL Calcium (8.4-10.2) mg/dL Procalcitonin (0.02-0.09) ng/mL 03/23/21 03/23/21 03/23/21 Range/Units 22:02 22:10 23:52 WBC (3.8-10.6) k/uL RBC (4.30-5.90) m/uL Hgb (13.0-17.5) gm/dL Hct (39.0-53.0) % Neutrophils # (1.3-7.7) k/uL APTT (22.0-30.0) sec Sodium 135 L (137-145) mmol/L Chloride 114 H (98-107) mmol/L Carbon Dioxide 15 L (22-30) mmol/L BUN 27 H (9-20) mg/dL Glucose 216 H (74-99) mg/dL POC Glucose (mg/dL) 228 H 237 H (75-99) mg/dL Calcium 7.8 L (8.4-10.2) mg/dL Procalcitonin (0.02-0.09) ng/mL 03/24/21 03/24/21 03/24/21 Range/Units 01:54 03:58 03:58 WBC 18.7 H (3.8-10.6) k/uL RBC 3.77 L (4.30-5.90) m/uL Hgb 11.9 L (13.0-17.5) gm/dL Hct 35.3 L (39.0-53.0) % Neutrophils # 15.7 H (1.3-7.7) k/uL APTT (22.0-30.0) sec Sodium (137-145) mmol/L Chloride 116 H (98-107) mmol/L Carbon Dioxide 19 L (22-30) mmol/L BUN 21 H (9-20) mg/dL Glucose 262 H (74-99) mg/dL POC Glucose (mg/dL) 252 H (75-99) mg/dL Calcium 7.7 L (8.4-10.2) mg/dL Procalcitonin (0.02-0.09) ng/mL 03/24/21 03/24/21 03/24/21 Range/Units 03:58 04:05 06:24 WBC (3.8-10.6) k/uL RBC (4.30-5.90) m/uL Hgb (13.0-17.5) gm/dL Hct (39.0-53.0) % Neutrophils # (1.3-7.7) k/uL APTT 49.1 H (22.0-30.0) sec Sodium (137-145) mmol/L Chloride (98-107) mmol/L Carbon Dioxide (22-30) mmol/L BUN (9-20) mg/dL Glucose (74-99) mg/dL POC Glucose (mg/dL) 267 H 245 H (75-99) mg/dL Calcium (8.4-10.2) mg/dL Procalcitonin (0.02-0.09) ng/mL 03/24/21 03/24/21 03/24/21 Range/Units 08:01 09:52 10:58 WBC (3.8-10.6) k/uL RBC (4.30-5.90) m/uL Hgb (13.0-17.5) gm/dL Hct (39.0-53.0) % Neutrophils # (1.3-7.7) k/uL APTT (22.0-30.0) sec Sodium (137-145) mmol/L Chloride (98-107) mmol/L Carbon Dioxide (22-30) mmol/L BUN (9-20) mg/dL Glucose (74-99) mg/dL POC Glucose (mg/dL) 227 H 269 H 261 H (75-99) mg/dL Calcium (8.4-10.2) mg/dL Procalcitonin (0.02-0.09) ng/mL Assessment and Plan Assessment: Elevated troponin, suspicious for non STEMI. right lower lobe pneumonia Postoperative occult blood in stool, with mild anemia only. Mostly related to his presentation of acute gastroenteritis, which could be reactive as well Acute kidney injury . Resolved Chronic heart failure, diastolic. Patient Hypertension Hyperlipidemia Diabetes mellitus, with hyperglycemia History of osteoarthritis history of pulmonary embolism Anxiety and depression, not an active fixation Plan: This is a pleasant 60 years old male who presents with right pneumonia . con tinue with antibiotic, continue with pressors, pulmonary/critical care consult. Cardiology consult. GI consult. Continue with Protonix Labs and medication were reviewed.. Continue same treatment. Continue with symptomatic treatment. Resume home medication. Monitor lytes and vitals. DVT and GI prophylaxis. Further recommendations depends on the clinical course of the patient GI Prophylaxis: Ppi Prognosis is guarded
--- NOTE | 2021-03-24 12:42 | P.PN ---
Subjective Progress Note Date: 03/24/21 Principal diagnosis: Chest pain. Pulmonary consult dated 03/23/2021. 60-year-old male, who presents to the emergency department, on March 22. He apparently came in complaining of nausea, vomiting, and diarrhea. It apparently began early the morning of this admission. The patient is a diabetic and has an insulin pump. Apparently his blood sugars have been running high. The make a long story short, he was apparently evaluated in the emergency department, and found to have diabetic ketoacidosis in addition, he was thought to have a right lower lobe pneumonia, and, was thought to have a non-ST segment elevation myocardial infarction. The patient is admitted into room 259. Currently, he's on room air. He is on an insulin drip at 5 units an hour, and getting dextrose and half-normal saline with 20 mg a potassium at 150 mL an hour. He is getting norepinephrine at 4.3 mcg/m. His chest x-ray does show patchy infiltrate right lower lobe. I recommended additional fluids, a stat random cortisol level, Rocephin IV and oral Zithromax, and a pro-calcitonin level. White count 27.6, hemoglobin 12.3, hematocrit 35.9, and platelet count normal. Sodium 136, potassium 4, chlorides 112, CO2 16, anion gap 8, the 144, creatinine 1.40, and troponins were 3.940 and 69.2. Urine was negative. Chest x-ray showed a patchy infiltrate right lower lobe. Progress note dated 03/24/2021. 60-year-old male, who presented to the emergency department on March 22. He came in complaining of nausea, vomiting, diarrhea, and was thought to have diabetic ketoacidosis. In addition, the patient had right lower lobe pneumonia, and possible non-ST segment elevation myocardial infarction. The patient was taken to the catheterization laboratory this morning by Dr. Haque. The results of the catheterization is not yet known. The patient's most recent glucose was 269. The anion gap was 3, the bicarbonate concentration was 19. The patient's on 3 L nasal cannula. The patient was getting insulin at 4.5 units an hour, and heparin via weightbase protocol. The patient was on D5 0.45, with 20 mg a potassium at 150 mL an hour. White count 18.7 and 1.9, hematocrit 35.3, platelet count was normal. Sodium 138, potassium 4.4, chlorides 116, CO2 19, anion gap 3, E1 21, creatinine 0.79. Microbiology is negative are pending. Chest x-ray continues to show right lower lobe infiltrate. Objective - Vital Signs Vital signs: Vital Signs Temp 98.4 F 03/24/21 09:01 Pulse 79 03/24/21 09:01 Resp 19 03/24/21 09:01 BP 130/80 03/24/21 09:00 Pulse Ox 96 03/24/21 09:00 Intake & Output 03/23/21 03/24/21 03/24/21 18:59 06:59 18:59 Intake Total 2947.897 1677.442 370 Output Total 1165 1950 275 Balance 1782.897 -272.558 95 Weight 72.2 kg 75.2 kg Intake: IV 2700 1650 370 Dextrose 5%-0.45% NaCl 1, 1650 1650 300 000 ml @ 150 mls/hr IV . Q6H44M [facility] with Potassium Chloride 20 meq Rx#: [id number] Sodium Chloride 0.9% 2, 1000 000 ml @ 999 mls/hr IV . Q2H1M ONE Rx#:[id number] cefTRIAXone 1 gm In 50 Sodium Chloride 0.9% 50 ml @ 100 mls/hr IVPB ONCE STA Rx#:[id number] Intake, IV Titration 247.897 27.442 Amount Dextrose 5%-0.45% NaCl 1, 150 000 ml @ 150 mls/hr IV . Q6H44M [facility] with Potassium Chloride 20 meq Rx#: [id number] Heparin Sod,Pork in 0.45% 50.396 NaCl 25,000 unit In 0.45 % NaCl 1 250ml.bag @ 12 UNITS/KG/HR 8.664 mls/hr IV .Q24H [facility] Rx#: [id number] Insulin Regular 100 unit 9.55 27.442 In Sodium Chloride 0.9% 100 ml @ 0.1 UNITS/KG/HR 6.597 mls/hr IV .[id number] [facility] Rx#:[id number] Norepinephrine 4 mg In 37.951 Sodium Chloride 0.9% 250 ml @ 0.05 MCG/KG/MIN 12. 443 mls/hr IV .[id number] [facility] Rx#:[id number] Output: Urine 1165 1950 275 Other: Voiding Method Indwelling Catheter Indwelling Catheter Indwelling Catheter - Exam No acute distress, patient quite sleepy, but does arouse. Saturations on 3 L are 96%. HEENT examination is grossly unremarkable. Neck supple. Full range of motion. No adenopathy thyromegaly or neck vein dis tention. Cardiovascular examination reveals regular rhythm rate. S1-S2 normal. No S3 or S4. No discernible murmur noted. Heart rate 79 bpm. Lungs reveal mostly clear breath sounds. Mild scattered rhonchi noted. No wheezes. Breath sounds equal bilaterally. Abdomen soft bowel sounds are heard. No masses or tenderness. Extremities are intact. No cyanosis clubbing or edema. Skin is without rash or lesion. Neurologic examination is brief but nonfocal. - Labs CBC & Chem 7: 03/24/21 03:58 03/24/21 03:58 Labs: Abnormal Lab Results - Last 24 Hours (Table) 03/23/21 03/23/21 03/23/21 Range/Units 05:24 13:04 14:09 WBC (3.8-10.6) k/uL RBC (4.30-5.90) m/uL Hgb (13.0-17.5) gm/dL Hct (39.0-53.0) % Neutrophils # (1.3-7.7) k/uL APTT (22.0-30.0) sec Sodium (137-145) mmol/L Chloride (98-107) mmol/L Carbon Dioxide (22-30) mmol/L BUN (9-20) mg/dL Glucose (74-99) mg/dL POC Glucose (mg/dL) 151 H 140 H (75-99) mg/dL Calcium (8.4-10.2) mg/dL Procalcitonin 7.66 H (0.02-0.09) ng/mL 03/23/21 03/23/21 03/23/21 Range/Units 15:26 15:58 15:58 WBC (3.8-10.6) k/uL RBC (4.30-5.90) m/uL Hgb (13.0-17.5) gm/dL Hct (39.0-53.0) % Neutrophils # (1.3-7.7) k/uL APTT 82.3 H (22.0-30.0) sec Sodium 135 L (137-145) mmol/L Chloride 115 H (98-107) mmol/L Carbon Dioxide 14 L (22-30) mmol/L BUN 34 H (9-20) mg/dL Glucose 156 H (74-99) mg/dL POC Glucose (mg/dL) 168 H (75-99) mg/dL Calcium 7.7 L (8.4-10.2) mg/dL Procalcitonin (0.02-0.09) ng/mL 03/23/21 03/23/21 03/23/21 Range/Units 16:51 18:01 19:00 WBC (3.8-10.6) k/uL RBC (4.30-5.90) m/uL Hgb (13.0-17.5) gm/dL Hct (39.0-53.0) % Neutrophils # (1.3-7.7) k/uL APTT (22.0-30.0) sec Sodium (137-145) mmol/L Chloride (98-107) mmol/L Carbon Dioxide (22-30) mmol/L BUN (9-20) mg/dL Glucose (74-99) mg/dL POC Glucose (mg/dL) 157 H 182 H 168 H (75-99) mg/dL Calcium (8.4-10.2) mg/dL Procalcitonin (0.02-0.09) ng/mL 03/23/21 03/23/21 03/23/21 Range/Units 20:04 22:02 22:02 WBC (3.8-10.6) k/uL RBC (4.30-5.90) m/uL Hgb (13.0-17.5) gm/dL Hct (39.0-53.0) % Neutrophils # (1.3-7.7) k/uL APTT 51.5 H (22.0-30.0) sec Sodium 135 L (137-145) mmol/L Chloride 114 H (98-107) mmol/L Carbon Dioxide 15 L (22-30) mmol/L BUN 27 H (9-20) mg/dL Glucose 216 H (74-99) mg/dL POC Glucose (mg/dL) 203 H (75-99) mg/dL Calcium 7.8 L (8.4-10.2) mg/dL Procalcitonin (0.02-0.09) ng/mL 03/23/21 03/23/21 03/24/21 Range/Units 22:10 23:52 01:54 WBC (3.8-10.6) k/uL RBC (4.30-5.90) m/uL Hgb (13.0-17.5) gm/dL Hct (39.0-53.0) % Neutrophils # (1.3-7.7) k/uL APTT (22.0-30.0) sec Sodium (137-145) mmol/L Chloride (98-107) mmol/L Carbon Dioxide (22-30) mmol/L BUN (9-20) mg/dL Glucose (74-99) mg/dL POC Glucose (mg/dL) 228 H 237 H 252 H (75-99) mg/dL Calcium (8.4-10.2) mg/dL Procalcitonin (0.02-0.09) ng/mL 03/24/21 03/24/21 03/24/21 Range/Units 03:58 03:58 03:58 WBC 18.7 H (3.8-10.6) k/uL RBC 3.77 L (4.30-5.90) m/uL Hgb 11.9 L (13.0-17.5) gm/dL Hct 35.3 L (39.0-53.0) % Neutrophils # 15.7 H (1.3-7.7) k/uL APTT 49.1 H (22.0-30.0) sec Sodium (137-145) mmol/L Chloride 116 H (98-107) mmol/L Carbon Dioxide 19 L (22-30) mmol/L BUN 21 H (9-20) mg/dL Glucose 262 H (74-99) mg/dL POC Glucose (mg/dL) (75-99) mg/dL Calcium 7.7 L (8.4-10.2) mg/dL Procalcitonin (0.02-0.09) ng/mL 03/24/21 03/24/21 03/24/21 Range/Units 04:05 06:24 08:01 WBC (3.8-10.6) k/uL RBC (4.30-5.90) m/uL Hgb (13.0-17.5) gm/dL Hct (39.0-53.0) % Neutrophils # (1.3-7.7) k/uL APTT (22.0-30.0) sec Sodium (137-145) mmol/L Chloride (98-107) mmol/L Carbon Dioxide (22-30) mmol/L BUN (9-20) mg/dL Glucose (74-99) mg/dL POC Glucose (mg/dL) 267 H 245 H 227 H (75-99) mg/dL Calcium (8.4-10.2) mg/dL Procalcitonin (0.02-0.09) ng/mL 03/24/21 03/24/21 Range/Units 09:52 10:58 WBC (3.8-10.6) k/uL RBC (4.30-5.90) m/uL Hgb (13.0-17.5) gm/dL Hct (39.0-53.0) % Neutrophils # (1.3-7.7) k/uL APTT (22.0-30.0) sec Sodium (137-145) mmol/L Chloride (98-107) mmol/L Carbon Dioxide (22-30) mmol/L BUN (9-20) mg/dL Glucose (74-99) mg/dL POC Glucose (mg/dL) 269 H 261 H (75-99) mg/dL Calcium (8.4-10.2) mg/dL Procalcitonin (0.02-0.09) ng/mL Assessment and Plan Assessment: Non-ST segment elevation myocardial infarction, with cardiac catheterization being performed on March 24. Diabetic ketoacidosis. Chronic hypoxemic respiratory failure. Chronic pain syndrome. History of pancreatitis. Migraine cephalgia. Pneumonia, right lower lobe. History of CAD. History of CHF. History of GI bleed. History of hyperlipidemia. Hypertension by history. Osteoarthritis. Prior history of pulmonary embolism. History of pulmonary fibrosis/interstitial lung disease. Plan: Plan dated 03/23/2021. The patient will continue on the protocol for diabetic ketoacidosis. Currently, his bicarbonate concentration is 16, anion gap is closed, and most recent glucose is 177. We will give the patient some additional volume, to see if we can wean off the norepinephrine. In addition, we'll go ahead and get a random cortisol level, continue on IV Rocephin and oral Zithromax, and check a pro- calcitonin level. Prognosis is guarded. Additional recommendations and suggestions are forthcoming. Plan dated 03/24/2021. The patient's IV is turned to KVO. In addition, the patient had a catheterization today, the results of which are not yet known. Otherwise, the patient's doing reasonably well. He continues on the IV heparin drip. His anion gap is now close. His bicarbonate concentration is moving towards normal, at 19. He remains on Rocephin and Zithromax. The pro-calcitonin level was elevated at 7.66. Additional recommendations and suggestions are forthcoming. Prognosis is guarded. Time with Patient: Greater than 30
--- NOTE | 2021-03-24 12:44 | PN ---
PROGRESS NOTE 60-year-old gentleman who was admitted to hospital with diabetic ketoacidosis and has possible pneumonia and had a non ST-segment elevation [place]. He is feeling better today but still complains of chest tightness. Creatinine has come back to normal at 0.79, hemoglobin is 11.9. The white cell count is coming down. Given the acute myocardial infarction and continued chest discomfort, I advised the patient to undergo cardiac catheterization which we will do sometime this morning. YUNI / MARTINA: [id number] /
--- NOTE | 2021-03-24 12:59 | PTCA ---
PERCUTANEOUSTRANS CORORONARY ANGIOGRAPHY DATE OF PROCEDURE: March 23, 2021 PERFORMING PHYSICIAN: Dr. Baldo Crawley. PROCEDURE PERFORMED: 1. Successful stenting of the distal left circumflex coronary artery using 2.5 x 12 mm Xience drug-eluting stent with an excellent angiographic result and reduction of stenosis from 90% to 0%. 2. Successful stenting of the first obtuse marginal branch of the left circumflex using 2.0 x 18 mm Andrews drug-eluting stent with an excellent angiographic result and reduction of stenosis from 80% to 0%. 3. Selective left common femoral artery angiogram. INDICATION: This is a very pleasant 60-year-old gentleman with coronary artery disease and known chronic total occlusion of the left circumflex coronary artery as well as severe peripheral arterial disease and prior revascularization, who presented to the hospital and was admitted to the hospital with DKA. He was found to have abnormal troponin evidence of myocardial injury. The echo showed evidence of wall motion abnormalities concerning for severe underlying coronary artery disease. Because of that, a heart catheterization was performed. A heart catheterization was performed by Dr. Haque and that revealed chronic total occlusion of the right coronary artery with critical disease involving the distal left circumflex and first obtuse marginal branch of the left circumflex. Because of that, percutaneous coronary intervention was advised. APPROACH: Left common femoral artery. COMPLICATION: None. LEVEL OF SEDATION: Moderate with sedation length of 23 minutes. PROCEDURE DESCRIPTION: Please refer to diagnostic heart catheterization was performed by Dr. Haque earlier today. Anticoagulation was achieved with Angiomax with bolus and drip per protocol. Subsequently, I did engage the left main using a XP35 guide. After that, I did wire the left circumflex as well as first obtuse marginal branch. I wired the left circumflex using a Whisper wire and the 1st OM branch using a run- through wire. I did direct stenting of the lesion in the distal left circumflex using 2.5 x 12 mm Xience drug-eluting stent where the stent was positioned under fluoroscopy guidance and deployed under 14 atmospheres for 20 seconds. The following angiogram showed good angiographic results. For the lesion in the first obtuse marginal branch, I also did direct stenting using this time 2.0 x 18 mm Harrison drug-eluting stent where the stent again was positioned under fluoroscopy guidance and deployed under 14 atmospheres for 20 seconds. The following angiogram showed excellent angiographic results and the procedure was completed without any complication. POSTPROCEDURE MANAGEMENT: 1. Dual anti-platelet therapy. 2. Risk factor modifications. 3. Aggressive cholesterol control and diabetes control. 4. Follow up with the patient. YUNI / CLAYN: [id number] /
--- NOTE | 2021-03-24 12:59 | CC ---
CARDIAC CATHETERIZATION REPORT INDICATION: Acute non ST-segment elevation UT. PROCEDURE NOTE: After obtaining informed consent, left heart catheterization and coronary angiogram were performed via the left femoral artery using standard Jose catheters. I used a dilator because of prior multiple catheterization and scarring. Procedure was completed uneventfully. FINDINGS: HEMODYNAMICS: Left ventricular end-diastolic pressure is 34 mm. There is no significant gradient across the aortic valve. LEFT VENTRICULOGRAM: Not performed. ANGIOGRAPHIC DATA: The left main coronary artery: Left main coronary artery is a normal-sized vessel, appears calcified but is free of significant stenosis. Divides into left anterior descending coronary artery and circumflex coronary artery. CIRCUMFLEX CORONARY ARTERY: The circumflex coronary artery has a focal 80-90 percent stenosis. There is a 70% to 80% stenosis involving the OM branch. LEFT ANTERIOR DESCENDING CORONARY ARTERY: LAD shows nadp-uv-reinabhs atherosclerotic plaque in the proximal and mid portions. RIGHT CORONARY ARTERY: Right coronary artery is totally occluded. It was previously stented and there are extensive rcet-[id number] collaterals going from the circ to the distal RCA. CONCLUSIONS: Chronic total occlusion of the right coronary artery and critical stenosis involving circumflex coronary artery and OM branch. PLAN: We believe the patient's myocardial infarction and the troponin elevation are related to this. Dr. Crawley the on-call rivet machine operator reviewed the angiographic data and will attempt complex angioplasty of the circ and the OM. YUNI / CLAYN: [id number] /
[2021-03-24 13:12] LABS: Glucose,Whole Blood 192 mg/dL (75-99)
--- NOTE | 2021-03-24 16:25 | P.PN ---
Subjective Progress Note Date: 03/24/21 Principal diagnosis: diarrhea Attempted to see patient in follow-up of diarrhea, however patient was not available as he was scheduled for a cardiac catheterization. Will follow up tomorrow. Objective - Vital Signs Vital signs: Vital Signs Temp 98.4 F 03/24/21 09:01 Pulse 79 03/24/21 09:01 Resp 19 03/24/21 09:01 BP 130/80 03/24/21 09:00 Pulse Ox 96 03/24/21 09:00 Intake & Output 03/23/21 03/24/21 03/24/21 18:59 06:59 18:59 Intake Total 2947.897 1677.442 300 Output Total 1165 1950 275 Balance 1782.897 -272.558 25 Weight 72.2 kg 75.2 kg Intake: IV 2700 1650 300 Dextrose 5%-0.45% NaCl 1, 1650 1650 300 000 ml @ 150 mls/hr IV . Q6H44M TRACEY with Potassium Chloride 20 meq Rx#: [id number] Sodium Chloride 0.9% 2, 1000 000 ml @ 999 mls/hr IV . Q2H1M ONE Rx#:[id number] cefTRIAXone 1 gm In 50 Sodium Chloride 0.9% 50 ml @ 100 mls/hr IVPB ONCE STA Rx#:[id number] Intake, IV Titration 247.897 27.442 Amount Dextrose 5%-0.45% NaCl 1, 150 000 ml @ 150 mls/hr IV . Q6H44M TRACEY with Potassium Chloride 20 meq Rx#: [id number] Heparin Sod,Pork in 0.45% 50.396 NaCl 25,000 unit In 0.45 % NaCl 1 250ml.bag @ 12 UNITS/KG/HR 8.664 mls/hr IV .Q24H TRACEY Rx#: [id number] Insulin Regular 100 unit 9.55 27.442 In Sodium Chloride 0.9% 100 ml @ 0.1 UNITS/KG/HR 6.597 mls/hr IV .[id number] TRACEY Rx#:[id number] Norepinephrine 4 mg In 37.951 Sodium Chloride 0.9% 250 ml @ 0.05 MCG/KG/MIN 12. 443 mls/hr IV .[id number] TRACEY Rx#:[id number] Output: Urine 1165 1950 275 Other: Voiding Method Indwelling Catheter Indwelling Catheter Indwelling Catheter - Labs CBC & Chem 7: 03/24/21 03:58 03/24/21 03:58 Labs: Abnormal Lab Results - Last 24 Hours (Table) 03/23/21 03/23/21 03/23/21 Range/Units 05:24 10:15 11:09 WBC (3.8-10.6) k/uL RBC (4.30-5.90) m/uL Hgb (13.0-17.5) gm/dL Hct (39.0-53.0) % Neutrophils # (1.3-7.7) k/uL APTT (22.0-30.0) sec Sodium (137-145) mmol/L Chloride (98-107) mmol/L Carbon Dioxide (22-30) mmol/L BUN (9-20) mg/dL Glucose (74-99) mg/dL POC Glucose (mg/dL) 178 H 142 H (75-99) mg/dL Calcium (8.4-10.2) mg/dL Procalcitonin 7.66 H (0.02-0.09) ng/mL 03/23/21 03/23/21 03/23/21 Range/Units 11:57 13:04 14:09 WBC (3.8-10.6) k/uL RBC (4.30-5.90) m/uL Hgb (13.0-17.5) gm/dL Hct (39.0-53.0) % Neutrophils # (1.3-7.7) k/uL APTT (22.0-30.0) sec Sodium (137-145) mmol/L Chloride (98-107) mmol/L Carbon Dioxide (22-30) mmol/L BUN (9-20) mg/dL Glucose (74-99) mg/dL POC Glucose (mg/dL) 140 H 151 H 140 H (75-99) mg/dL Calcium (8.4-10.2) mg/dL Procalcitonin (0.02-0.09) ng/mL 03/23/21 03/23/21 03/23/21 Range/Units 15:26 15:58 15:58 WBC (3.8-10.6) k/uL RBC (4.30-5.90) m/uL Hgb (13.0-17.5) gm/dL Hct (39.0-53.0) % Neutrophils # (1.3-7.7) k/uL APTT 82.3 H (22.0-30.0) sec Sodium 135 L (137-145) mmol/L Chloride 115 H (98-107) mmol/L Carbon Dioxide 14 L (22-30) mmol/L BUN 34 H (9-20) mg/dL Glucose 156 H (74-99) mg/dL POC Glucose (mg/dL) 168 H (75-99) mg/dL Calcium 7.7 L (8.4-10.2) mg/dL Procalcitonin (0.02-0.09) ng/mL 03/23/21 03/23/21 03/23/21 Range/Units 16:51 18:01 19:00 WBC (3.8-10.6) k/uL RBC (4.30-5.90) m/uL Hgb (13.0-17.5) gm/dL Hct (39.0-53.0) % Neutrophils # (1.3-7.7) k/uL APTT (22.0-30.0) sec Sodium (137-145) mmol/L Chloride (98-107) mmol/L Carbon Dioxide (22-30) mmol/L BUN (9-20) mg/dL Glucose (74-99) mg/dL POC Glucose (mg/dL) 157 H 182 H 168 H (75-99) mg/dL Calcium (8.4-10.2) mg/dL Procalcitonin (0.02-0.09) ng/mL 03/23/21 03/23/21 03/23/21 Range/Units 20:04 22:02 22:02 WBC (3.8-10.6) k/uL RBC (4.30-5.90) m/uL Hgb (13.0-17.5) gm/dL Hct (39.0-53.0) % Neutrophils # (1.3-7.7) k/uL APTT 51.5 H (22.0-30.0) sec Sodium 135 L (137-145) mmol/L Chloride 114 H (98-107) mmol/L Carbon Dioxide 15 L (22-30) mmol/L BUN 27 H (9-20) mg/dL Glucose 216 H (74-99) mg/dL POC Glucose (mg/dL) 203 H (75-99) mg/dL Calcium 7.8 L (8.4-10.2) mg/dL Procalcitonin (0.02-0.09) ng/mL 03/23/21 03/23/21 03/24/21 Range/Units 22:10 23:52 01:54 WBC (3.8-10.6) k/uL RBC (4.30-5.90) m/uL Hgb (13.0-17.5) gm/dL Hct (39.0-53.0) % Neutrophils # (1.3-7.7) k/uL APTT (22.0-30.0) sec Sodium (137-145) mmol/L Chloride (98-107) mmol/L Carbon Dioxide (22-30) mmol/L BUN (9-20) mg/dL Glucose (74-99) mg/dL POC Glucose (mg/dL) 228 H 237 H 252 H (75-99) mg/dL Calcium (8.4-10.2) mg/dL Procalcitonin (0.02-0.09) ng/mL 03/24/21 03/24/21 03/24/21 Range/Units 03:58 03:58 03:58 WBC 18.7 H (3.8-10.6) k/uL RBC 3.77 L (4.30-5.90) m/uL Hgb 11.9 L (13.0-17.5) gm/dL Hct 35.3 L (39.0-53.0) % Neutrophils # 15.7 H (1.3-7.7) k/uL APTT 49.1 H (22.0-30.0) sec Sodium (137-145) mmol/L Chloride 116 H (98-107) mmol/L Carbon Dioxide 19 L (22-30) mmol/L BUN 21 H (9-20) mg/dL Glucose 262 H (74-99) mg/dL POC Glucose (mg/dL) (75-99) mg/dL Calcium 7.7 L (8.4-10.2) mg/dL Procalcitonin (0.02-0.09) ng/mL 03/24/21 03/24/21 03/24/21 Range/Units 04:05 06:24 08:01 WBC (3.8-10.6) k/uL RBC (4.30-5.90) m/uL Hgb (13.0-17.5) gm/dL Hct (39.0-53.0) % Neutrophils # (1.3-7.7) k/uL APTT (22.0-30.0) sec Sodium (137-145) mmol/L Chloride (98-107) mmol/L Carbon Dioxide (22-30) mmol/L BUN (9-20) mg/dL Glucose (74-99) mg/dL POC Glucose (mg/dL) 267 H 245 H 227 H (75-99) mg/dL Calcium (8.4-10.2) mg/dL Procalcitonin (0.02-0.09) ng/mL Assessment and Plan (1) Diarrhea Current Visit: Yes Status: Acute Code(s): R19.7 - DIARRHEA, UNSPECIFIED SNOMED Code(s): 98367076 (2) Positive occult stool blood test Current Visit: Yes Status: Acute Code(s): R19.5 - OTHER FECAL ABNORMALITIES SNOMED Code(s): 36857792 (3) DKA (diabetic ketoacidoses) Current Visit: Yes Status: Acute Code(s): E11.10 - TYPE 2 DIABETES MELLITUS WITH KETOACIDOSIS WITHOUT COMA SNOMED Code(s): 337982211 (4) Nausea and vomiting Current Visit: Yes Status: Acute Code(s): R11.2 - NAUSEA WITH VOMITING, UNSPECIFIED SNOMED Code(s): 55308675 (5) History of peptic ulcer disease Current Visit: Yes Status: Acute Code(s): Z87.11 - PERSONAL HISTORY OF PEPTIC ULCER DISEASE SNOMED Code(s): 480802272
[2021-03-24 16:50] LABS: Glucose,Whole Blood 83 mg/dL (75-99)
[2021-03-24] MEDS: ACETAMINOPHEN TAB 325 MG TAB PO PRN ×2 (18:27→23:33)
[2021-03-24 20:37] LABS: Glucose,Whole Blood 313 mg/dL (75-99)
[2021-03-24] MEDS ORDERED: INSULIN ASPART (NovoLOG) 100 UNIT/ML VIAL SQ SCH (21:00)
[2021-03-24] MEDS: ATORVASTATIN 80 MG TAB PO SCH (21:04)
[2021-03-24] MEDS: AZITHROMYCIN 500 MG TAB PO SCH (21:04)
[2021-03-25 03:29] LABS: Glucose,Whole Blood 330 mg/dL (75-99)
[2021-03-25] MEDS: INSULIN ASPART (NovoLOG) 100 UNIT/ML VIAL SQ SCH ×5 (03:36→21:05)
[2021-03-25 04:32] LABS: African American GFR (CKD) >90 (>60 ml/min/1.73 sqM); Non-African American GFR(CKD) >90 (>60 ml/min/1.73 sqM)
[2021-03-25 06:07] LABS: HCT 36.6 % (39.0-53.0); HGB 12.6 gm/dL (13.0-17.5); MCH 32.2 pg (25.0-35.0); MCHC 34.3 g/dL (31.0-37.0); MCV 93.8 fL (80.0-100.0); Mean Platelet Volume 8.9; Platelet Count 201 k/uL (150-450); RDW 14.3 % (11.5-15.5); WBC 14.6 k/uL (3.8-10.6)
[2021-03-25 06:18] LABS: African American GFR (CKD) >90 (>60 ml/min/1.73 sqM); Anion Gap 12 mmol/L; Blood Urea Nitrogen 16 mg/dL (9-20); Calcium 8.2 mg/dL (8.4-10.2); Carbon Dioxide 16 mmol/L (22-30); Chloride 107 mmol/L (98-107); Glucose 351 mg/dL (74-99); Non-African American GFR(CKD) >90 (>60 ml/min/1.73 sqM); Potassium 4.4 mmol/L (3.5-5.1); Sodium 135 mmol/L (137-145)
[2021-03-25 06:48] LABS: Glucose,Whole Blood 169 mg/dL (75-99)
--- NOTE | 2021-03-25 07:59 | XR ---
EXAMINATION TYPE: XR chest 1V DATE OF EXAM: 03/25/2021 CLINICAL HISTORY: Difficulty breathing progress study. TECHNIQUE: Single AP portable upright view of the chest is obtained. COMPARISON: Chest x-ray from one day earlier and older studies FINDINGS: Osseous structures remain demineralized. Spinal and generalized neck stimulators redemonst rated. Cardiac silhouette size stable and upper limits of normal. Thoracic aorta. Chronic emphysemato us and parenchymal changes with persistent mid to lower lung opacities bilaterally. Suspect developin g small to tiny bilateral pleural effusions. IMPRESSION: Persistent small to tiny bilateral pleural effusions. Persistent bilateral mid to lower l matias multifocal edema and/or infiltrates on background of chronic changes. No significant change from most recent x-ray.
[2021-03-25] MEDS: CHOLECALCIFEROL 25 MCG (1000 IU) TABLET PO SCH (08:06)
[2021-03-25] MEDS: ASPIRIN 81 MG PO SCH (08:06)
[2021-03-25] MEDS: PANTOPRAZOLE 40 MG/10 ML VIAL IV SCH ×2 (08:06→19:54)
[2021-03-25] MEDS: CLOPIDOGREL 75 MG TAB PO SCH (08:06)
--- NOTE | 2021-03-25 08:51 | P.PN ---
Subjective This is a pleasant 60 years old male with multiple medical problems including heart failure, diabetes mellitus, hypertension, hyperlipidemia, osteoarthritis, pulmonary embolism. Patient does not follow up with PCP he was to see Dr. Bobo but retired. He has a history of pulmonary fibrosis on 3 L oxygen at home, however he haven't talked up with his metal wire technician says start oral, but about 1.5 years ago. Presents with nausea vomiting and diarrhea chest pain. Patient says that she's been having nausea vomiting and did do the for the last 2 days, no blood. He doesn't know pulmonary times a day ago but states his bowel movements are soft. He denies abdominal pain. Also was complaining of from chest pain over the last 2 days mainly in the left shoulder radiating to both the left arm on the chest, felt like mild. No dyspnea. Also patient has a neurostimulator in his neck and lower back. When he was checking his sugar noticed it is elevated more than 600 so decided to come to emergency room, usually he follows up with Dr. Mc for his insulin pump but since last November he noticed that his sugar was been trending up to 400. Blood pressure on the low side 84/49, saturating 99% on 2 L of oxygen via nasal cannula Labs showing leukocytosis of 27.6K. hemoglobin normal at 12.3 creatinine elevated at 1.4 as well as troponin 69.2. Glucose 85-113. Liver enzymes elevated. Urinalysis is not suspicious of infection, acetone positive Coronavirus not detected. EKG shows sinus tachycardia at 113, Chest x-ray:increased right lower lobe density may reflect development infiltrate In the emergency room patient received several normal saline boluses, ceftriaxone, Zithromax, Protonix twice daily IV, D5 half-normal saline he is currently on Levophed 03/24/2021 Patient states that his breathing feels better today and minimal left sh oulder/chest pain. No significant shortness of breath. No coughing. He is hemodynamically stable and lap showing improvement including trending down WBC 2018.7 K, hemoglobin came down a little bit to 11.9 creatinine back to normal. Glucose is better controlled and his INSULIN drip and currently on a sliding scale. She was kept nothing by mouth this morning before he is possibly going for cardiac cath with cardiology team. He is on D5 half-normal saline at 50 mL/h and has been treated for pneumonia with Rocephin and Zithromax No need for pressors anymore 03/25/21 Patient is awake in bed and eating his breakfast, and if he is doing well. He is hemodynamically stable. No new complaints. No abdominal pain, no nausea vomiting. He still feels short of breath for example when he has bouts of coughing, patient has a chronic cough but denies chest pain. He is taking in bed most of the time. R no chest pain or shoulder pain. He has some loose bowel movement but no abdominal pain. He is RELATED to her oxygen by nasal cannula. Labs showing trending down WBC 214 K, hemoglobin is stable at 12.6. Creatinine remains normal. Patient underwent cardiac cath yesterday with stent placed and circumflex artery and first obtuse branch, he tolerated the procedure well. Chest x-ray showing the same changes with bilateral infiltrates suspicious for edema versus infiltrate. He remains on ceftriaxone and Zithromax. Heparin drip was discontinued, D5 half-normal saline was started as well. And he is currently on subcutaneous heparin, Protonix IV 40 mg twice daily. Also he is on dual antiplatelet therapy with aspirin and Plavix review of Systems CONSTITUTIONAL: No fever, no malaise, no fatigue. HEENT: No recent visual problems or hearing problems. Denied any sore throat. CARDIOVASCULAR: No orthopnea, PND, no palpitations, no syncope. PULMONARY: No shortness of breath, no cough, no hemoptysis. GASTROINTESTINAL: No diarrhea, no nausea, no vomiting, no abdominal pain. Normoactive bowel sounds. NEUROLOGICAL: No headaches, no weakness, no numbness. Active Medications Generic Name Dose Route Start Last Admin Trade Name Bjq PRN Reason Stop Dose Admin Acetaminophen 650 mg 03/22/21 18:47 03/24/21 23:33 Acetaminophen Tab 325 Mg Tab PO 650 mg Q4HR PRN Administration Fever and/or Mild Pain Al Hydroxide/Mg Hydroxide 30 ml 03/24/21 11:17 Mag Hydrox/Al Hydrox/Simeth 30 Ml Cup PO Q4HR PRN Heartburn Aspirin 81 mg 03/23/21 09:00 03/25/21 08:06 Aspirin 81 Mg PO 81 mg DAILY TRACEY Administration Atorvastatin Calcium 80 mg 03/24/21 21:00 03/24/21 21:04 Atorvastatin 80 Mg Tab PO 80 mg HS TRACEY Administration Atropine Sulfate 0.5 mg 03/24/21 11:17 Atropine Sulfate 0.1 Mg/Ml 10ml Syringe IV ONCE PRN Symptomatic Bradycardia Azithromycin 500 mg 03/23/21 20:00 03/24/21 21:04 Azithromycin 500 Mg Tab PO 500 mg DAILY@2000 TRACEY Administration Cholecalciferol 50 mcg 03/23/21 09:00 03/25/21 08:06 Cholecalciferol 25 Mcg (1000 Iu) Tablet PO 50 mcg DAILY TRACEY Administration Clopidogrel Bisulfate 75 mg 03/23/21 11:15 03/25/21 08:06 Clopidogrel 75 Mg Tab PO 75 mg DAILY TRACEY Administration Guaifenesin 200 mg 03/23/21 20:30 03/23/21 22:00 Guaifenesin Syrup 100mg/5ml 200 Mg/10 Ml Cup PO 200 mg Q6H PRN Administration Cough Norepinephrine Bitartrate 4 mg 254 mls @ 12.443 mls/hr 03/23/21 04:00 03/24/21 23:31 / Sodium Chloride IV Not Given .[id number] [facility] Protocol 0.05 MCG/KG/MIN Ceftriaxone Sodium 1 gm/ 50 mls @ 100 mls/hr 03/23/21 09:30 03/25/21 08:06 Sodium Chloride IVPB 100 mls/hr Q24HR TRACEY Administration Insulin Aspart 0 unit 03/25/21 07:30 03/25/21 07:32 Insulin Aspart (Novolog) 100 Unit/Ml Vial SQ 1 unit [id number] TRACEY Administration Protocol Miscellaneous Information 1 each 03/24/21 11:17 Rx Info: Iv Contrast Was Given 1 Each Misc MISCELLANE 03/26/21 11:17 DAILY PRN Per Protocol Morphine Sulfate 4 mg 03/22/21 18:47 03/24/21 04:09 Morphine Sulfate 4 Mg/Ml Syringe IV 4 mg Q2HR PRN Administration Pain Scale 8 to 10 Naloxone HCl 0.2 mg 03/22/21 18:47 Naloxone 0.4 Mg/Ml 1 Ml Vial IV Q2M PRN Opioid Reversal Nitroglycerin 0.4 mg 03/23/21 06:31 03/23/21 06:40 Nitroglycerin Sl Tabs 0.4 Mg Tab SUBLINGUAL 0.4 mg Q5M PRN Administration Chest Pain Pantoprazole Sodium 40 mg 03/22/21 21:00 03/25/21 08:06 Pantoprazole 40 Mg/10 Ml Vial IV 40 mg BID TRACEY Administration Zolpidem Tartrate 5 mg 03/24/21 11:17 Zolpidem 5 Mg Tab PO HS PRN Insomnia Objective - Vital Signs Vital signs: Vital Signs Temp 98.2 F 03/25/21 08:00 Pulse 99 03/25/21 08:00 Resp 20 03/25/21 08:00 BP 116/68 03/25/21 08:00 Pulse Ox 97 03/25/21 08:00 Intake & Output 03/24/21 03/25/21 03/25/21 18:59 06:59 18:59 Intake Total 370 Output Total 3595 1450 80 Balance -3225 -1450 -80 Weight 66.9 kg Intake: IV 370 Dextrose 5%-0.45% NaCl 1, 300 000 ml @ 150 mls/hr IV . Q6H44M TRACEY with Potassium Chloride 20 meq Rx#: [id number] Output: Urine 3595 1450 80 Other: Voiding Method Indwelling Catheter Indwelling Catheter Indwelling Catheter - Exam GENERAL: The patient is alert and oriented x3, not in any acute distress. Well developed, well nourished. HEENT: Pupils are round and equally reacting to light. EOMI. No scleral icterus. No conjunctival pallor. Normocephalic, atraumatic. No pharyngeal erythema. No thyromegaly. CARDIOVASCULAR: S1 and S2 present. No murmurs, rubs, or gallops. PULMONARY: Chest is clear to auscultation, no wheezing or crackles. ABDOMEN: Soft, nontender, nondistended, normoactive bowel sounds. No palpable organomegaly. MUSCULOSKELETAL: No joint swelling or deformity. EXTREMITIES: No cyanosis, clubbing, or pedal edema. NEUROLOGICAL: Gross neurological examination did not reveal any focal deficits. SKIN: No rashes. no petechiae. - Labs CBC & Chem 7: 03/25/21 03:51 03/25/21 03:51 Labs: Abnormal Lab Results - Last 24 Hours (Table) 03/24/21 03/24/21 03/24/21 Range/Units 09:52 10:58 13:01 WBC (3.8-10.6) k/uL RBC (4.30-5.90) m/uL Hgb (13.0-17.5) gm/dL Hct (39.0-53.0) % Sodium (137-145) mmol/L Carbon Dioxide (22-30) mmol/L Glucose (74-99) mg/dL POC Glucose (mg/dL) 269 H 261 H 192 H (75-99) mg/dL Calcium (8.4-10.2) mg/dL 03/24/21 03/25/21 03/25/21 Range/Units 20:35 03:17 03:51 WBC (3.8-10.6) k/uL RBC (4.30-5.90) m/uL Hgb (13.0-17.5) gm/dL Hct (39.0-53.0) % Sodium 135 L (137-145) mmol/L Carbon Dioxide 16 L (22-30) mmol/L Glucose 351 H (74-99) mg/dL POC Glucose (mg/dL) 313 H 330 H (75-99) mg/dL Calcium 8.2 L (8.4-10.2) mg/dL 03/25/21 03/25/21 Range/Units 03:51 06:46 WBC 14.6 H (3.8-10.6) k/uL RBC 3.90 L (4.30-5.90) m/uL Hgb 12.6 L (13.0-17.5) gm/dL Hct 36.6 L (39.0-53.0) % Sodium (137-145) mmol/L Carbon Dioxide (22-30) mmol/L Glucose (74-99) mg/dL POC Glucose (mg/dL) 169 H (75-99) mg/dL Calcium (8.4-10.2) mg/dL Assessment and Plan Assessment: Elevated troponin, suspicious for non STEMI. Status post cardiac catheter with PCI to circumflex artery and first obtuse branch. right lower lobe pneumonia Postoperative occult blood in stool, with mild anemia only. Mostly related to his presentation of acute gastroenteritis, which could be reactive as well Acute kidney injury . Resolved Chronic heart failure, diastolic. Currently he is with combined systolic and diastolic dysfunction as ejection fraction is 40-45% with ischemic cardiomyopathy Hypertension Hyperlipidemia Diabetes mellitus, with hyperglycemia History of osteoarthritis history of pulmonary embolism Anxiety and depression, not an active fixation Plan: This is a pleasant 60 years old male who presents with right pneumonia . continue with antibiotic, continue with pressors, pulmonary/critical care consult. Cardiology consult. GI consult. Continue with Protonix Continue with aspirin and Plavix, continue with antibiotics of ceftriaxone and Zithromax. Continue with Protonix IV 40 mg twice daily. Labs and medication were reviewed.. Continue same treatment. Continue with symptomatic treatment. Resume home medication. Monitor lytes and vitals. DVT and GI prophylaxis. Further recommendations depends on the clinical course of the patient GI Prophylaxis: Ppi Prognosis is guarded
[2021-03-25] MEDS ORDERED: INSULIN DETEMIR (LEVEMIR) 100 UNIT/ML SYR SQ SCH (09:15)
--- NOTE | 2021-03-25 09:45 | P.PN ---
Subjective Progress Note Date: 03/25/21 Principal diagnosis: Acute coronary syndrome This is a 60-year-old gentleman who presented to the hospital with chest discomfort and was diagnosed with acute ST elevation myocardial infarction be he underwent an emergent heart catheterization and was found to have critical disea se involving the LCx and OM. He underwent successful stenting of both with an excellent angiographic results. He was seen this morning. He is asymptomatic. He is hemodynamically stable. He is on dual antiplatelet therapy along with high intensity statin. The echocardiogram is in process to be done. From a perivascular standpoint of view, would continue the current medical regimen and follow-up with the patient in follow-up on the echocardiogram. No arrhythmia was noted during the last 24 hours. On exam he does have bilateral rhonchi/wheezing. The chest x-ray from yesterday showed small bilateral pleural effusion. I'm going to add a small dose of Aldactone to her current medical regimen. Obviously he is also on antibiotic for potential pneumonia. Objective - Vital Signs Vital signs: Vital Signs Temp 98.2 F 03/25/21 08:00 Pulse 98 03/25/21 09:00 Resp 27 H 03/25/21 09:00 BP 123/75 03/25/21 09:00 Pulse Ox 96 03/25/21 09:00 Intake & Output 03/24/21 03/25/21 03/25/21 18:59 06:59 18:59 Intake Total 370 Output Total 3595 1450 80 Balance -3225 -1450 -80 Weight 66.9 kg Intake: IV 370 Dextrose 5%-0.45% NaCl 1, 300 000 ml @ 150 mls/hr IV . Q6H44M TRACEY with Potassium Chloride 20 meq Rx#: [id number] Output: Urine 3595 1450 80 Other: Voiding Method Indwelling Catheter Indwelling Catheter Indwelling Catheter - Constitutional General appearance: Present: no acute distress - Respiratory Respiratory: bilateral: rales, wheezing - Cardiovascular Rhythm: regular Heart sounds: normal: S1, S2 Abnormal Heart Sounds: Present: systolic murmur - Labs CBC & Chem 7: 03/25/21 03:51 03/25/21 03:51 Labs: Abnormal Lab Results - Last 24 Hours (Table) 03/24/21 03/24/21 03/24/21 Range/Units 09:52 10:58 13:01 WBC (3.8-10.6) k/uL RBC (4.30-5.90) m/uL Hgb (13.0-17.5) gm/dL Hct (39.0-53.0) % Sodium (137-145) mmol/L Carbon Dioxide (22-30) mmol/L Glucose (74-99) mg/dL POC Glucose (mg/dL) 269 H 261 H 192 H (75-99) mg/dL Calcium (8.4-10.2) mg/dL 03/24/21 03/25/21 03/25/21 Range/Units 20:35 03:17 03:51 WBC (3.8-10.6) k/uL RBC (4.30-5.90) m/uL Hgb (13.0-17.5) gm/dL Hct (39.0-53.0) % Sodium 135 L (137-145) mmol/L Carbon Dioxide 16 L (22-30) mmol/L Glucose 351 H (74-99) mg/dL POC Glucose (mg/dL) 313 H 330 H (75-99) mg/dL Calcium 8.2 L (8.4-10.2) mg/dL 03/25/21 03/25/21 Range/Units 03:51 06:46 WBC 14.6 H (3.8-10.6) k/uL RBC 3.90 L (4.30-5.90) m/uL Hgb 12.6 L (13.0-17.5) gm/dL Hct 36.6 L (39.0-53.0) % Sodium (137-145) mmol/L Carbon Dioxide (22-30) mmol/L Glucose (74-99) mg/dL POC Glucose (mg/dL) 169 H (75-99) mg/dL Calcium (8.4-10.2) mg/dL Assessment and Plan Assessment: Assessment #[address] elevation myocardial infarction #2 multiple comorbid conditions Plan #1 continue the current medical regimen #2 add small dose of Aldactone to the current medical regimen #3 continue monitor the kidney function and electrolytes #4 follow-up with the patient
[2021-03-25 10:12] VITALS: BMI 21.7
[2021-03-25] MEDS: guaiFENesin-DM 100-10MG/5ML 10 ML CUP PO SCH ×2 (10:35→17:25)
[2021-03-25] MEDS: HEPARIN SODIUM,PORCINE/PF 5,000 UNIT/0.5 ML SYRINGE SQ SCH ×2 (10:36→19:53)
[2021-03-25] MEDS: METOPROLOL SUCCINATE (ER) 25 MG TAB.ER.24H PO SCH ×2 (10:36→19:53)
[2021-03-25 11:36] LABS: Glucose,Whole Blood 247 mg/dL (75-99)
--- NOTE | 2021-03-25 11:36 | P.PN ---
Subjective Progress Note Date: 03/25/21 Principal diagnosis: Non-ST elevated myocardial infarction, diabetic ketoacidosis, bilateral pneumonia Pulmonary consult dated 03/23/2021. 60-year-old male, who presents to the emergency department, on March 22. He apparently came in complaining of nausea, vomiting, and diarrhea. It apparently began early the morning of this admission. The patient is a diabetic and has an insulin pump. Apparently his blood sugars have been running high. The make a long story short, he was apparently evaluated in the emergency department, and found to have diabetic ketoacidosis in addition, he was thought to have a right lower lobe pneumonia, and, was thought to have a non-ST segment elevation myocardial infarction. The patient is admitted into room 259. Currently, he's on room air. He is on an insulin drip at 5 units an hour, and getting dextrose and half-normal saline with 20 mg a potassium at 150 mL an hour. He is getting norepinephrine at 4.3 mcg/m. His chest x-ray does show patchy infiltrate right lower lobe. I recommended additional fluids, a stat random cortisol level, Rocephin IV and oral Zithromax, and a pro-calcitonin level. White count 27.6, hemoglobin 12.3, hematocrit 35.9, and platelet count normal. Sodium 136, potassium 4, chlorides 112, CO2 16, anion gap 8, the 144, creatinine 1.40, and troponins were 3.940 and 69.2. Urine was negative. Chest x-ray showed a patchy infiltrate right lower lobe. Progress note dated 03/24/2021. 60-year-old male, who presented to the emergency department on March 22. He came in complaining of nausea, vomiting, diarrhea, and was thought to have diabetic ketoacidosis. In addition, the patient had right lower lobe pneumonia, and possible non-ST segment elevation myocardial infarction. The patient was taken to the catheterization laboratory this morning by Dr. Haque. The results of the catheterization is not yet known. The patient's most recent glucose was 269. The anion gap was 3, the bicarbonate concentration was 19. The patient's on 3 L nasal cannula. The patient was getting insulin at 4.5 units an hour, and heparin via weightbase protocol. The patient was on D5 0.45, with 20 mg a potassium at 150 mL an hour. White count 18.7 and 1.9, hematocrit 35.3, platelet count was normal. Sodium 138, potassium 4.4, chlorides 116, CO2 19, anion gap 3, E1 21, creatinine 0.79. Microbiology is negative are pending. Chest x-ray continues to show right lower lobe infiltrate. On 03/25/2001 patient seen in follow-up in the intensive care unit, he is awake and alert, in no acute distress, he sitting up in the chair, breathing comfortably, he is currently on 3 L of oxygen his pulse ox is 97%, he is in sinus mechanism, patient not on any maintenance IV fluids, he continues on combination of azithromycin and Rocephin for possibility of bibasilar pneumonia right greater than left. His been afebrile, hemodynamically he is stable, not on any vasopressor support, denies any chest pain, denies any hemoptysis, today's chest x-ray shows persistence multiple tiny bilateral pleural effusions, and persistent bilateral mid to lower lung multifocal edema and/or infiltrates on background of chronic changes. No significant change from most recent chest x-ray. Today's labs have been reviewed, white blood cell count is 14.6, hemoglobin of 12.6, sodium is 135, CO2 was 16, the rest of the renal profile were unremarkable, this morning his glucose is 351. Patient was started on basal insulin in the form of Levemir 5 units daily which we will increase to 15 units and in addition to that patient is on a sliding scale NovoLog. Cardiology is following in regards to recent history of ST elevated myocardial infarction and patient is status post cardiac catheterization and stenting of the circumflex and OM. Patient is on Plavix, aspirin, high-dose Lipitor, Aldactone. Denies any specific complaints this morning, denies any chest pain or pressure. Objective - Vital Signs Vital signs: Vital Signs Temp 98.2 F 03/25/21 08:00 Pulse 98 03/25/21 09:00 Resp 27 H 03/25/21 09:00 BP 123/75 03/25/21 09:00 Pulse Ox 96 03/25/21 09:00 Intake & Output 03/24/21 03/25/21 03/25/21 18:59 06:59 18:59 Intake Total 370 Output Total 359 1450 80 Balance -3225 -1450 -80 Weight 66.9 kg 66.9 kg Intake: IV 370 Dextrose 5%-0.45% NaCl 1, 300 000 ml @ 150 mls/hr IV . Q6H44M TRACEY with Potassium Chloride 20 meq Rx#: [id number] Output: Urine 3595 1450 80 Other: Voiding Method Indwelling Catheter Indwelling Catheter Indwelling Catheter - Exam GENERAL EXAM: Alert, very pleasant 60-year-old white male, sitting up in the recliner, currently on 3 L of oxygen pulse ox of 97% comfortable in no apparent distress. HEAD: Normocephalic/atraumatic. EYES: Normal reaction of pupils, equal size. Conjunctiva pink, sclera white. NOSE: Clear with pink turbinates. THROAT: No erythema or exudates. NECK: No masses, no JVD, no thyroid enlargement, no adenopathy. CHEST: No chest wall deformity. Symmetrical expansion. LUNGS: Equal air entry with no crackles, wheeze, rhonchi or dullness. CVS: Regular rate and rhythm, normal S1 and S2, no gallops, no murmurs, no rubs ABDOMEN: Soft, nontender. No hepatosplenomegaly, normal bowel sounds, no guarding or rigidity. EXTREMITIES: No clubbing, no edema, no cyanosis, 2+ pulses and upper and lower extremities. MUSCULOSKELETAL: Muscle strength and tone normal. SPINE: No scoliosis or deformity SKIN: No rashes CENTRAL NERVOUS SYSTEM: Alert and oriented -3. No focal deficits, tone is normal in all 4 extremities. PSYCHIATRIC: Alert and oriented -3. Appropriate affect. Intact judgment and insight. - Labs CBC & Chem 7: 03/25/21 03:51 03/25/21 03:51 Labs: Abnormal Lab Results - Last 24 Hours (Table) 03/24/21 03/24/21 03/25/21 Range/Units 13:01 20:35 03:17 WBC (3.8-10.6) k/uL RBC (4.30-5.90) m/uL Hgb (13.0-17.5) gm/dL Hct (39.0-53.0) % Sodium (137-145) mmol/L Carbon Dioxide (22-30) mmol/L Glucose (74-99) mg/dL POC Glucose (mg/dL) 192 H 313 H 330 H (75-99) mg/dL Calcium (8.4-10.2) mg/dL 03/25/21 03/25/21 03/25/21 Range/Units 03:51 03:51 06:46 WBC 14.6 H (3.8-10.6) k/uL RBC 3.90 L (4.30-5.90) m/uL Hgb 12.6 L (13.0-17.5) gm/dL Hct 36.6 L (39.0-53.0) % Sodium 135 L (137-145) mmol/L Carbon Dioxide 16 L (22-30) mmol/L Glucose 351 H (74-99) mg/dL POC Glucose (mg/dL) 169 H (75-99) mg/dL Calcium 8.2 L (8.4-10.2) mg/dL Assessment and Plan Plan: Assessment: #1. Acute ST elevated myocardial infarction of the inferolateral wall, status post successful PCI and stenting of the left circumflex and OM 1 #2. Bibasilar pneumonia, right greater than left #3. Acute diabetic ketoacidosis, recovered #4. Acute gap metabolic acidosis related to DKA #5. Acute kidney injury related to ATN, improving #6. Chronic hypoxic respiratory failure related to pulmonary fibrosis/interstitial lung disease #7. History of diabetes mellitus type 2, poorly controlled and most recently patient had been on insulin pump #8. History of pancreatitis #9. History of chronic pain syndrome #10. History of hyperlipidemia #11. History of pulmonary embolism #12. Migraine cephalgia's Plan: Continue current antibiotics We'll send a follow-up pro-calcitonin Clinically patient denies any specific complaints, no worsening dyspnea, no complaints of chest pain Leukocytosis is improving, no fever or chills, He is denying gap has improved, however patient is still hyperglycemic we will adjust his Levemir to 15 units daily Continue sliding scale insulin Continue with the dual antiplatelet therapy, Lipitor, blockers per cardiology recommendations Todays chest x-ray has been reviewed, labs have been reviewed We'll continue to closely follow If he remains stable may consider transfer out of intensive care unit later on today I performed a history & physical examination of the patient and discussed their management with my nurse practitioner, Tamica Sher. I reviewed the nurse practitioner's note and agree with the documented findings and plan of care. Lung sounds are positive for diminished breath sounds throughout the lung johnson. The findings and the impression was discussed with the patient. I attest to the documentation by the nurse practitioner. Time with Patient: Greater than 30
--- NOTE | 2021-03-25 16:36 | P.PN ---
Subjective Progress Note Date: 03/25/21 Principal diagnosis: Diarrhea This is a 60-year-old male patient who presented to the emergency department with DKA, and STEMI myocardial infarction who underwent a cardiac cath with stenting yesterday. He also had complaints of diarrhea which have been nonbloody, loose. He is having 2-3 episodes a day. Stool studies have been ordered however not collected. He denies any abdominal pain, associated nausea or vomiting. Objective - Vital Signs Vital signs: Vital Signs Temp 98.2 F 03/25/21 08:00 Pulse 98 03/25/21 09:00 Resp 27 H 03/25/21 09:00 BP 123/75 03/25/21 09:00 Pulse Ox 96 03/25/21 09:00 Intake & Output 03/24/21 03/25/21 03/25/21 18:59 06:59 18:59 Intake Total 370 Output Total 3595 1450 80 Balance -3225 -1450 -80 Weight 66.9 kg 66.9 kg Intake: IV 370 Dextrose 5%-0.45% NaCl 1, 300 000 ml @ 150 mls/hr IV . Q6H44M TRACEY with Potassium Chloride 20 meq Rx#: [id number] Output: Urine 3595 1450 80 Other: Voiding Method Indwelling Catheter Indwelling Catheter Indwelling Catheter - Exam General appearance: The patient is alert, oriented, appears in no acute distress. HET: Head is normocephalic and atraumatic. Conjunctiva pink. Sclera anicteric. Neck: Supple without lymphadenopathy. Abdomen: Soft, nontender, nondistended with bowel sounds. No guarding or rigidity. Extremities: Normal skin color and turgor. No pedal edema Skin: No rashes, no jaundice Neurological: No focal deficits. Alert and oriented 3. - Labs CBC & Chem 7: 03/25/21 03:51 03/25/21 03:51 Labs: Abnormal Lab Results - Last 24 Hours (Table) 03/24/21 03/24/21 03/24/21 Range/Units 10:58 13:01 20:35 WBC (3.8-10.6) k/uL RBC (4.30-5.90) m/uL Hgb (13.0-17.5) gm/dL Hct (39.0-53.0) % Sodium (137-145) mmol/L Carbon Dioxide (22-30) mmol/L Glucose (74-99) mg/dL POC Glucose (mg/dL) 261 H 192 H 313 H (75-99) mg/dL Calcium (8.4-10.2) mg/dL 03/25/21 03/25/21 03/25/21 Range/Units 03:17 03:51 03:51 WBC 14.6 H (3.8-10.6) k/uL RBC 3.90 L (4.30-5.90) m/uL Hgb 12.6 L (13.0-17.5) gm/dL Hct 36.6 L (39.0-53.0) % Sodium 135 L (137-145) mmol/L Carbon Dioxide 16 L (22-30) mmol/L Glucose 351 H (74-99) mg/dL POC Glucose (mg/dL) 330 H (75-99) mg/dL Calcium 8.2 L (8.4-10.2) mg/dL 03/25/21 Range/Units 06:46 WBC (3.8-10.6) k/uL RBC (4.30-5.90) m/uL Hgb (13.0-17.5) gm/dL Hct (39.0-53.0) % Sodium (137-145) mmol/L Carbon Dioxide (22-30) mmol/L Glucose (74-99) mg/dL POC Glucose (mg/dL) 169 H (75-99) mg/dL Calcium (8.4-10.2) mg/dL Assessment and Plan (1) Diarrhea Narrative/Plan: 60-year-old male with multiple medical comorbidities presenting with a constellation of symptoms including nausea, vomiting, diarrhea, had stool positive for occult blood. Hemoglobin stable at 12.3 from 13.1 with no reports of any further nausea vomiting diarrhea or bleeding. Patient is currently receiving treatment for diabetic ketoacidosis and possible non-ST elevation myocardial infarction. Symptoms likely related to uncontrolled blood sugars with stool studies ordered to rule out other etiology. No plans for endoscopic evaluation at this time. Last colonoscopy as per history in 2012 with last flexible sigmoidoscopy in 2014 for rectal bleeding and at that time EGD in 2014 showed well-healing ulcers of the antrum and duodenum. Current Visit: Yes Status: Acute Code(s): R19.7 - DIARRHEA, UNSPECIFIED SNOMED Code(s): 89115829 (2) DKA (diabetic ketoacidoses) Current Visit: Yes Status: Acute Code(s): E11.10 - TYPE 2 DIABETES MELLITUS WITH KETOACIDOSIS WITHOUT COMA SNOMED Code(s): 389545816 (3) History of peptic ulcer disease Current Visit: Yes Status: Acute Code(s): Z87.11 - PERSONAL HISTORY OF PEPTIC ULCER DISEASE SNOMED Code(s): 668535074 (4) Nausea and vomiting Current Visit: Yes Status: Acute Code(s): R11.2 - NAUSEA WITH VOMITING, UNSPECIFIED SNOMED Code(s): 06169353 (5) Positive occult stool blood test Current Visit: Yes Status: Acute Code(s): R19.5 - OTHER FECAL ABNORMALITIES SNOMED Code(s): 49788350 Plan: 1. Supportive care 2. Continue ICU management 3. Continue tight glycemic control 4. Continue to monitor hemoglobin and hematocrit, transfuse as needed 5. Continue to monitor stool output 6. Stool studies ordered 7. No plans for endoscopic evaluation at this time Thank you for this consultation, we will continue to follow Dr. Estevan Haque I agree with the dictator's note, documented as a scribe by Valentina Talamantes.
[2021-03-25 16:51] LABS: Glucose,Whole Blood 290 mg/dL (75-99)
--- NOTE | 2021-03-25 17:01 | ECHOF ---
Referral Reason:Post-catherization MEASUREMENTS -------- HEIGHT: 175.3 cm WEIGHT: 66.7 kg BP: 121/73 IVSd: 1.2 cm (0.6 - 1.1) LVIDd: 4.1 cm (3.9 - 5.3) LVPWd: 1.4 cm (0.6 - 1.1) EDV(Teich): 75 ml IVSs: 1.6 cm LVIDs: 3.5 cm LVPWs: 1.4 cm %IVS Thck: 34 % ESV(Teich): 52 ml EF(Teich): 30 % %FS: 14 % SV(Teich): 23 ml FINDINGS -------- Sinus rhythm. This was a technically difficult study with suboptimal apical views. Limited Study Patient is post cardiac catheterization and cannot be in left lateral position. The left ventricular size is normal. There is mild concentric left ventricular hypertrophy. Overa ll left ventricular systolic function is severely impaired with, an EF between 25 - 30 %. Lateral h ypokinesis Inferiorlateral Hypokinesis Anterior Hypokinesis There is no pericardial effusion. CONCLUSIONS -------- 1. The left ventricular size is normal. 2. There is mild concentric left ventricular hypertrophy. 3. Overall left ventricular systolic function is severely impaired with, an EF between 25 - 30 %. 4. Lateral hypokinesis 5. Inferiorlateral Hypokinesis 6. Anterior Hypokinesis MICROELECTRONICS TECHNICIAN: Samanta Wilson RDCS
[2021-03-25] MEDS: NITROGLYCERIN SL TABS 0.4 MG TAB SUBLINGUAL PRN (17:25)
[2021-03-25] MEDS: MORPHINE SULFATE 4 MG/ML SYRINGE IV PRN (17:53)
[2021-03-25] MEDS ORDERED: ONDANSETRON 4 MG/2 ML VIAL IVP PRN (17:57)
[2021-03-25] MEDS ORDERED: FAMOTIDINE 20 MG TAB PO SCH (18:00)
[2021-03-25] MEDS: NITROGLYCERIN OINT 1 INCH/GM PACKET TOPICAL SCH (18:12)
[2021-03-25] MEDS: AZITHROMYCIN 500 MG TAB PO SCH (19:53)
[2021-03-25] MEDS: ATORVASTATIN 80 MG TAB PO SCH (19:53)
[2021-03-25 21:04] LABS: Glucose,Whole Blood 307 mg/dL (75-99)
[2021-03-26] MEDS: guaiFENesin-DM 100-10MG/5ML 10 ML CUP PO SCH ×4 (01:56→23:42)
[2021-03-26] MEDS: NITROGLYCERIN OINT 1 INCH/GM PACKET TOPICAL SCH ×2 (01:56→08:12)
[2021-03-26 02:00] LABS: Glucose,Whole Blood 227 mg/dL (75-99)
[2021-03-26] MEDS: INSULIN ASPART (NovoLOG) 100 UNIT/ML VIAL SQ SCH ×5 (02:01→20:39)
[2021-03-26 06:06] LABS: Glucose,Whole Blood 211 mg/dL (75-99)
[2021-03-26] MEDS ORDERED: INSULIN DETEMIR (LEVEMIR) 100 UNIT/ML SYR SQ SCH (07:00)
[2021-03-26 08:02] LABS: Basophils % (A) 0 %; Eosinophils # (A) 0.1 k/uL (0-0.7); Eosinophils % (A) 1 %; HCT 35.1 % (39.0-53.0); HGB 11.7 gm/dL (13.0-17.5); Lymphocytes # (A) 1.6 k/uL (1.0-4.8); Lymphocytes % (A) 14 %; MCH 30.8 pg (25.0-35.0); MCHC 33.4 g/dL (31.0-37.0); MCV 92.4 fL (80.0-100.0); Mean Platelet Volume 8.6; Monocytes # (A) 0.8 k/uL (0-1.0); Monocytes % (A) 7 %; Neutrophils # (A) 8.7 k/uL (1.3-7.7); Neutrophils % (A) 74 %; Platelet Count 212 k/uL (150-450); WBC 11.7 k/uL (3.8-10.6)
[2021-03-26] MEDS: PANTOPRAZOLE 40 MG/10 ML VIAL IV SCH (08:11)
[2021-03-26] MEDS: CHOLECALCIFEROL 25 MCG (1000 IU) TABLET PO SCH (08:12)
[2021-03-26] MEDS: HEPARIN SODIUM,PORCINE/PF 5,000 UNIT/0.5 ML SYRINGE SQ SCH ×2 (08:12→19:47)
[2021-03-26] MEDS: CLOPIDOGREL 75 MG TAB PO SCH (08:12)
[2021-03-26] MEDS: METOPROLOL SUCCINATE (ER) 25 MG TAB.ER.24H PO SCH ×2 (08:12→19:47)
[2021-03-26] MEDS: ASPIRIN 81 MG PO SCH (08:12)
[2021-03-26] MEDS: SPIRONOLACTONE 25 MG TAB PO SCH (08:12)
[2021-03-26 08:28] LABS: African American GFR (CKD) >90 (>60 ml/min/1.73 sqM); Anion Gap 9 mmol/L; Blood Urea Nitrogen 13 mg/dL (9-20); Calcium 8.4 mg/dL (8.4-10.2); Carbon Dioxide 23 mmol/L (22-30); Chloride 105 mmol/L (98-107); Glucose 228 mg/dL (74-99); Magnesium 1.7 mg/dL (1.6-2.3); Non-African American GFR(CKD) >90 (>60 ml/min/1.73 sqM); Potassium 4.1 mmol/L (3.5-5.1); Sodium 137 mmol/L (137-145)
[2021-03-26 12:07] LABS: Glucose,Whole Blood 236 mg/dL (75-99)
--- NOTE | 2021-03-26 12:28 | P.PN ---
Subjective Progress Note Date: 03/26/21 HISTORY OF PRESENT ILLNESS: Patient is status post cardiac catheterization with PCI to circumflex and OM. Patient examined this morning at the bedside. Patient denies chest pain or pressure. Patient had an episode of chest pain overnight and was started on Nitropaste. Patient reports mild SOB which he states is chronic for him secondary to his pulmonary fibrosis. BNP this morning is 15,900. Patient is on 3L NC which he states he wears at home. Echocardiogram completed revealed ejection fraction 25-30%. Blood pressure 133/70. PHYSICAL EXAM: VITAL SIGNS: Reviewed. GENERAL: Well-developed in no acute distress. NECK: Supple. No JVD or thyromegaly LUNGS: Respirations even and unlabored. Lungs diminished with bilateral rhonchi. HEART: Regular rate and rhythm. S1 and S2 heard. Systolic murmur noted. EXTREMITIES: Normal range of motion. No clubbing or cyanosis. Peripheral pulses intact. No lower extremity edema ASSESSMENT: Acute STEMI, s/p PCI to circumflex and OM Ischemic cardiomyopathy Bilateral pneumonia Chronic hypoxic respiratory failure secondary to pulmonary fibrosis, on home oxygen Hyperlipidemia Acute kidney injury, resolved Acute systolic heart failure PLAN: Continue current cardiac medications including aspirin, Lipitor, Plavix, Aldactone, and metoprolol succinate Discontinue Nitropaste Begin lisinopril 5 mg daily IV Lasix started per pulmonary Accurate I&O Daily weights Monitor kidney function Further recommendations pending patient course Nurse practitioner note has been reviewed by physician. Signing provider agrees with the documented findings, assessment, and plan of care. Objective - Vital Signs Vital signs: Vital Signs Temp 97.8 F 03/26/21 08:00 Pulse 96 03/26/21 08:00 Resp 18 03/26/21 08:00 BP 133/70 03/26/21 08:00 Pulse Ox 98 03/26/21 08:00 Intake & Output 03/25/21 03/26/21 03/26/21 18:59 06:59 18:59 Intake Total 250 960 100 Output Total 680 250 Balance -430 710 100 Weight 66.9 kg 68 kg Intake: IV 50 [id number] 1 gm In 50 Sodium Chloride 0.9% 50 ml @ 100 mls/hr IVPB Q24HR TRACEY Rx#:[id number] Oral 200 960 100 Output: Urine 680 250 Other: Voiding Method Indwelling Catheter Toilet Urinal # Voids 1 # Bowel Movements 2 - Labs CBC & Chem 7: 03/26/21 06:47 03/26/21 06:47 Labs: Abnormal Lab Results - Last 24 Hours (Table) 03/25/21 03/25/21 03/25/21 Range/Units 11:34 16:50 21:03 WBC (3.8-10.6) k/uL RBC (4.30-5.90) m/uL Hgb (13.0-17.5) gm/dL Hct (39.0-53.0) % Neutrophils # (1.3-7.7) k/uL Glucose (74-99) mg/dL POC Glucose (mg/dL) 247 H 290 H 307 H (75-99) mg/dL 03/26/21 03/26/21 03/26/21 Range/Units 01:59 06:04 06:47 WBC 11.7 H (3.8-10.6) k/uL RBC 3.80 L (4.30-5.90) m/uL Hgb 11.7 L (13.0-17.5) gm/dL Hct 35.1 L (39.0-53.0) % Neutrophils # 8.7 H (1.3-7.7) k/uL Glucose (74-99) mg/dL POC Glucose (mg/dL) 227 H 211 H (75-99) mg/dL 03/26/21 Range/Units 06:47 WBC (3.8-10.6) k/uL RBC (4.30-5.90) m/uL Hgb (13.0-17.5) gm/dL Hct (39.0-53.0) % Neutrophils # (1.3-7.7) k/uL Glucose 228 H (74-99) mg/dL POC Glucose (mg/dL) (75-99) mg/dL
--- NOTE | 2021-03-26 12:35 | P.PN ---
Subjective Progress Note Date: 03/26/21 60-year-old male, who presents to the emergency department, on March 22. He apparently came in complaining of nausea, vomiting, and diarrhea. It apparently began early the morning of this admission. The patient is a diabetic and has an insulin pump. Apparently his blood sugars have been running high. The make a long story short, he was apparently evaluated in the emergency department, and found to have diabetic ketoacidosis in addition, he was thought to have a right lower lobe pneumonia, and, was thought to have a non-ST segment elevation myocardial infarction. The patient is admitted into room 259. Currently, he's on room air. He is on an insulin drip at 5 units an hour, and getting dextrose and half-normal saline with 20 mg a potassium at 150 mL an hour. He is getting norepinephrine at 4.3 mcg/m. His chest x-ray does show patchy infiltrate right lower lobe. I recommended additional fluids, a stat random cortisol level, Rocephin IV and oral Zithromax, and a pro-calcitonin level. White count 27.6, hemoglobin 12.3, hematocrit 35.9, and platelet count normal. Sodium 136, potass ium 4, chlorides 112, CO2 16, anion gap 8, the 144, creatinine 1.40, and troponins were 3.940 and 69.2. Urine was negative. Chest x-ray showed a patchy infiltrate right lower lobe. Progress note dated 03/24/2021. 60-year-old male, who presented to the emergency department on March 22. He came in complaining of nausea, vomiting, diarrhea, and was thought to have diabetic ketoacidosis. In addition, the patient had right lower lobe pneumonia, and possible non-ST segment elevation myocardial infarction. The patient was taken to the catheterization laboratory this morning by Dr. Haque. The results of the catheterization is not yet known. The patient's most recent glucose was 269. The anion gap was 3, the bicarbonate concentration was 19. The patient's on 3 L nasal cannula. The patient was getting insulin at 4.5 units an hour, and heparin via weightbase protocol. The patient was on D5 0.45, with 20 mg a potassium at 150 mL an hour. White count 18.7 and 1.9, hematocrit 35.3, plate let count was normal. Sodium 138, potassium 4.4, chlorides 116, CO2 19, anion gap 3, E1 21, creatinine 0.79. Microbiology is negative are pending. Chest x- ray continues to show right lower lobe infiltrate. On 03/25/2001 patient seen in follow-up in the intensive care unit, he is awake and alert, in no acute distress, he sitting up in the chair, breathing comfortably, he is currently on 3 L of oxygen his pulse ox is 97%, he is in sinus mechanism, patient not on any maintenance IV fluids, he continues on combination of azithromycin and Rocephin for possibility of bibasilar pneumonia right greater than left. His been afebrile, hemodynamically he is stable, not on any vasopressor support, denies any chest pain, denies any hemoptysis, today's chest x-ray shows persistence multiple tiny bilateral pleural effusions, and persistent bilateral mid to lower lung multifocal edema and/or infiltrates on background of chronic changes. No significant change from most recent chest x-ray. Today's labs have been reviewed, white blood cell count is 14.6, hemoglobin of 12.6, sodium is 135, CO2 was 16, the rest of the renal profile were unremarkable, this morning his glucose is 351. Patient was started on basal insulin in the form of Levemir 5 units daily which we will increase to 15 units and in addition to that patient is on a sliding scale NovoLog. Cardiology is following in regards to recent history of ST elevated myocardial infarction and patient is status post cardiac catheterization and stenting of the circumflex and OM. Patient is on Plavix, aspirin, high-dose Lipitor, Aldactone. Denies any specific complaints this morning, denies any chest pain or pressure. 03/26/2021, the patient has been released out of the intensive care unit to a medical floor. The patient is resting comfortably in bed. No significant respiratory distress. Less coarse crackles in lung bases bilaterally knowing that the patient has history of pulmonary fibrosis. He is post acute myocardial infarction, post stenting and the repeat echocardiogram showed impairment of the LV function with an ejection fraction of 20-25%. Chest x-ray is showing lower lobe pulmonary infiltrates.The patient is post cardiac catheterization with PCI and stenting to the circumflex and OM. The patient's family of any chest pain. The patient did have a bout of chest pain overnight and the patient was started on Nitropaste by cardiology. His BNP level is 15,900. Echocardiogram as mentioned showed an ejection fraction of 25-30%. He remains on aspirin. He remains on Plavix. He remains on HERMELINDO inhibitor as well as Zestril 5 mg by mouth daily. He is also on Nitropaste and Toprol 25 mg by mouth twice a day. Empiric antibiotic coverage with IV Rocephin. He is also on Zithromax. Started on Aldactone 25 mg by mouth daily as of today. Objective - Vital Signs Vital signs: Vital Signs Temp 97.8 F 03/26/21 08:00 Pulse 96 03/26/21 08:00 Resp 18 03/26/21 08:00 BP 133/70 03/26/21 08:00 Pulse Ox 98 03/26/21 08:00 Intake & Output 03/25/21 03/26/21 03/26/21 18:59 06:59 18:59 Intake Total 250 960 100 Output Total 680 250 Balance -430 710 100 Weight 66.9 kg 68 kg Intake: IV 50 cefTRIAXone 1 gm In 50 Sodium Chloride 0.9% 50 ml @ 100 mls/hr IVPB Q24HR [facility] Rx#:[id number] Oral 200 960 100 Output: Urine 680 250 Other: Voiding Method Indwelling Catheter Toilet Urinal # Voids 1 # Bowel Movements 2 - Exam GENERAL EXAM: Alert, very pleasant 60-year-old white male, sitting up in the recliner, currently on 3 L of oxygen pulse ox of 97% comfortable in no apparent distress. HEAD: Normocephalic/atraumatic. EYES: Normal reaction of pupils, equal size. Conjunctiva pink, sclera white. NOSE: Clear with pink turbinates. THROAT: No erythema or exudates. NECK: No masses, no JVD, no thyroid enlargement, no adenopathy. CHEST: No chest wall deformity. Symmetrical expansion. LUNGS: Equal air entry with no crackles, wheeze, rhonchi or dullness. CVS: Regular rate and rhythm, normal S1 and S2, no gallops, no murmurs, no rubs ABDOMEN: Soft, nontender. No hepatosplenomegaly, normal bowel sounds, no guarding or rigidity. EXTREMITIES: No clubbing, no edema, no cyanosis, 2+ pulses and upper and lower extremities. MUSCULOSKELETAL: Muscle strength and tone normal. SPINE: No scoliosis or deformity SKIN: No rashes CENTRAL NERVOUS SYSTEM: Alert and oriented -3. No focal deficits, tone is normal in all 4 extremities. PSYCHIATRIC: Alert and oriented -3. Appropriate affect. Intact judgment and insight. - Labs CBC & Chem 7: 03/26/21 06:47 03/26/21 06:47 Labs: Abnormal Lab Results - Last 24 Hours (Table) 03/25/21 03/25/21 03/26/21 Range/Units 16:50 21:03 01:59 WBC (3.8-10.6) k/uL RBC (4.30-5.90) m/uL Hgb (13.0-17.5) gm/dL Hct (39.0-53.0) % Neutrophils # (1.3-7.7) k/uL Glucose (74-99) mg/dL POC Glucose (mg/dL) 290 H 307 H 227 H (75-99) mg/dL 03/26/21 03/26/21 03/26/21 Range/Units 06:04 06:47 06:47 WBC 11.7 H (3.8-10.6) k/uL RBC 3.80 L (4.30-5.90) m/uL Hgb 11.7 L (13.0-17.5) gm/dL Hct 35.1 L (39.0-53.0) % Neutrophils # 8.7 H (1.3-7.7) k/uL Glucose 228 H (74-99) mg/dL POC Glucose (mg/dL) 211 H (75-99) mg/dL 03/26/21 Range/Units 12:05 WBC (3.8-10.6) k/uL RBC (4.30-5.90) m/uL Hgb (13.0-17.5) gm/dL Hct (39.0-53.0) % Neutrophils # (1.3-7.7) k/uL Glucose (74-99) mg/dL POC Glucose (mg/dL) 236 H (75-99) mg/dL Assessment and Plan Plan: #1. Acute ST elevated myocardial infarction of the inferolateral wall, status post successful PCI and stenting of the left circumflex and OM 1. The patient is currently on a combination of aspirin and Plavix. The patient is on Toprol. The patient on HERMELINDO inhibitor lisinopril #2. Bibasilar pneumonia, right greater than left versus CHF. Echocardiogram showed improvement of the LV function with an ejection fraction of 20-25% and the proBNP level was elevated. #3. Acute diabetic ketoacidosis, recovered #4. Acute gap metabolic acidosis related to DKA #5. Acute kidney injury related to ATN, improving #6. Chronic hypoxic respiratory failure related to pulmonary fibrosis/interstitial lung disease #7. History of diabetes mellitus type 2, poorly controlled and most recently patient had been on insulin pump #8. History of pancreatitis #9. History of chronic pain syndrome #10. History of hyperlipidemia #11. History of pulmonary embolism #12. Migraine cephalgia's #13 CHF with impaired ejection fraction of 20-25% Plan: Continue current antibiotics Start Aldactone 25 mg by mouth daily Start the patient on Lasix 40 mg IV every 24 hours Awaiting procalcitonin level Repeat chest x-ray in the morning Patient is still hyperglycemic we will adjust his Levemir to 22 units daily Continue sliding scale insulin Continue with the dual antiplatelet therapy, Lipitor, blockers per cardiology recommendations We'll continue to closely follow
[2021-03-26] MEDS: lisinopriL 5 MG TAB PO SCH (13:25)
[2021-03-26] MEDS: FUROSEMIDE 10 MG/ML 4 ML VIAL IV SCH (13:25)
--- NOTE | 2021-03-26 14:09 | P.PN ---
Subjective Progress Note Date: 03/26/21 Principal diagnosis: Diarrhea This is a 60-year-old male patient who presented to the emergency department with DKA, and STEMI myocardial infarction who underwent a cardiac cath with stenting yesterday. The patient has been transferred out of the ICU to the medical floor. He states he still having episodes of loose bowel movements, nonbloody. Denies any abdominal pain, nausea, or vomiting. Stool studies still have not been collected as ordered. Objective - Vital Signs Vital signs: Vital Signs Temp 97.8 F 03/26/21 08:00 Pulse 96 03/26/21 08:00 Resp 18 03/26/21 08:00 BP 133/70 03/26/21 08:00 Pulse Ox 98 03/26/21 08:00 Intake & Output 03/25/21 03/26/21 03/26/21 18:59 06:59 18:59 Intake Total 250 960 100 Output Total 680 250 Balance -430 710 100 Weight 66.9 kg 68 kg Intake: IV 50 cefTRIAXone 1 gm In 50 Sodium Chloride 0.9% 50 ml @ 100 mls/hr IVPB Q24HR [facility] Rx#:[id number] Oral 200 960 100 Output: Urine 680 250 Other: Voiding Method Indwelling Catheter Toilet Urinal # Voids 1 # Bowel Movements 2 - Exam General appearance: The patient is alert, oriented, appears in no acute distress. HET: Head is normocephalic and atraumatic. Conjunctiva pink. Sclera anicteric. Neck: Supple without lymphadenopathy. Abdomen: Soft, nontender, nondistended with bowel sounds. No guarding or rigidity. Extremities: Normal skin color and turgor. No pedal edema Skin: No rashes, no jaundice Neurological: No focal deficits. Alert and oriented 3. - Labs CBC & Chem 7: 03/26/21 06:47 03/26/21 06:47 Labs: Abnormal Lab Results - Last 24 Hours (Table) 03/25/21 03/25/21 03/26/21 Range/Units 16:50 21:03 01:59 WBC (3.8-10.6) k/uL RBC (4.30-5.90) m/uL Hgb (13.0-17.5) gm/dL Hct (39.0-53.0) % Neutrophils # (1.3-7.7) k/uL Glucose (74-99) mg/dL POC Glucose (mg/dL) 290 H 307 H 227 H (75-99) mg/dL 03/26/21 03/26/21 03/26/21 Range/Units 06:04 06:47 06:47 WBC 11.7 H (3.8-10.6) k/uL RBC 3.80 L (4.30-5.90) m/uL Hgb 11.7 L (13.0-17.5) gm/dL Hct 35.1 L (39.0-53.0) % Neutrophils # 8.7 H (1.3-7.7) k/uL Glucose 228 H (74-99) mg/dL POC Glucose (mg/dL) 211 H (75-99) mg/dL Assessment and Plan (1) Diarrhea Narrative/Plan: 60-year-old male with multiple medical comorbidities presenting with a constellation of symptoms including nausea, vomiting, diarrhea, had stool positive for occult blood. Hemoglobin stable at 12.3 from 13.1 with no reports of any further nausea vomiting diarrhea or bleeding. Patient is currently receiving treatment for diabetic ketoacidosis and possible non-ST elevation myocardial infarction. Symptoms likely related to uncontrolled blood sugars with stool studies ordered to rule out other etiology. No plans for endoscopic evaluation at this time. Last colonoscopy as per history in 2012 with last flexible sigmoidoscopy in 2014 for rectal bleeding and at that time EGD in 2014 showed well-healing ulcers of the antrum and duodenum. Current Visit: Yes Status: Acute Code(s): R19.7 - DIARRHEA, UNSPECIFIED SNOMED Code(s): 58774173 (2) DKA (diabetic ketoacidoses) Current Visit: Yes Status: Acute Code(s): E11.10 - TYPE 2 DIABETES MELLITUS WITH KETOACIDOSIS WITHOUT COMA SNOMED Code(s): 356355561 (3) History of peptic ulcer disease Current Visit: Yes Status: Acute Code(s): Z87.11 - PERSONAL HISTORY OF PEPTIC ULCER DISEASE SNOMED Code(s): 123981118 (4) Nausea and vomiting Current Visit: Yes Status: Acute Code(s): R11.2 - NAUSEA WITH VOMITING, UNSPECIFIED SNOMED Code(s): 47957980 (5) Positive occult stool blood test Current Visit: Yes Status: Acute Code(s): R19.5 - OTHER FECAL ABNORMALITIES SNOMED Code(s): 00373661 Plan: 1. Supportive care 2. Continue medical managment 3. Continue tight glycemic control 4. Continue to monitor hemoglobin and hematocrit, transfuse as needed 5. Continue to monitor stool output 6. Stool studies ordered 7. No plans for endoscopic evaluation at this time Thank you for this consultation, we will continue to follow Dr. Estevan Haque I agree with the dictator's note, documented as a scribe by Valentina Talamantes.
[2021-03-26 16:32] LABS: Glucose,Whole Blood 242 mg/dL (75-99)
[2021-03-26] MEDS: PANTOPRAZOLE 40 MG TABLET PO SCH (17:07)
[2021-03-26] MEDS: ATORVASTATIN 80 MG TAB PO SCH (19:46)
[2021-03-26] MEDS: AZITHROMYCIN 500 MG TAB PO SCH (19:46)
[2021-03-26 20:17] LABS: Glucose,Whole Blood 237 mg/dL (75-99)
--- NOTE | 2021-03-26 21:43 | P.PN ---
Subjective This is a pleasant 60 years old male with multiple medical problems including heart failure, diabetes mellitus, hypertension, hyperlipidemia, osteoarthritis, pulmonary embolism. Patient does not follow up with PCP he was to see Dr. Bobo but retired. He has a history of pulmonary fibrosis on 3 L oxygen at home, however he haven't talked up with his crop scout says start oral, but about 1.5 years ago. Presents with nausea vomiting and diarrhea chest pain. Patient says that she's been having nausea vomiting and did do the for the last 2 days, no blood. He doesn't know pulmonary times a day ago but states his bowel movements are soft. He denies abdominal pain. Also was complaining of from chest pain over the last 2 days mainly in the left shoulder radiating to both the left arm on the chest, felt like mild. No dyspnea. Also patient has a neurostimulator in his neck and lower back. When he was checking his sugar noticed it is elevated more than 600 so decided to come to emergency room, usually he follows up with Dr. Mc for his insulin pump but since last November he noticed that his sugar was been trending up to 400. Blood pressure on the low side 84/49, saturating 99% on 2 L of oxygen via nasal cannula Labs showing leukocytosis of 27.6K. hemoglobin normal at 12.3 creatinine elevated at 1.4 as well as troponin 69.2. Glucose 85-113. Liver enzymes elevated. Urinalysis is not suspicious of infection, acetone positive Coronavirus not detected. EKG shows sinus tachycardia at 113, Chest x-ray:increased right lower lobe density may reflect development infiltrate In the emergency room patient received several normal saline boluses, ceftriaxone, Zithromax, Protonix twice daily IV, D5 half-normal saline he is currently on Levophed 03/24/2021 Patient states that his breathing feels better today and minimal left sh oulder/chest pain. No significant shortness of breath. No coughing. He is hemodynamically stable and lap showing improvement including trending down WBC 2018.7 K, hemoglobin came down a little bit to 11.9 creatinine back to normal. Glucose is better controlled and his INSULIN drip and currently on a sliding scale. She was kept nothing by mouth this morning before he is possibly going for cardiac cath with cardiology team. He is on D5 half-normal saline at 50 mL/h and has been treated for pneumonia with Rocephin and Zithromax No need for pressors anymore 03/25/21 Patient is awake in bed and eating his breakfast, and if he is doing well. He is hemodynamically stable. No new complaints. No abdominal pain, no nausea vomiting. He still feels short of breath for example when he has bouts of coughing, patient has a chronic cough but denies chest pain. He is taking in bed most of the time. R no chest pain or shoulder pain. He has some loose bowel movement but no abdominal pain. He is RELATED to her oxygen by nasal cannula. Labs showing trending down WBC 214 K, hemoglobin is stable at 12.6. Creatinine remains normal. Patient underwent cardiac cath yesterday with stent placed and circumflex artery and first obtuse branch, he tolerated the procedure well. Chest x-ray showing the same changes with bilateral infiltrates suspicious for edema versus infiltrate. He remains on ceftriaxone and Zithromax. Heparin drip was discontinued, D5 half-normal saline was started as well. And he is currently on subcutaneous heparin, Protonix IV 40 mg twice daily. Also he is on dual antiplatelet therapy with aspirin and Plavix 03/26/2021 Patient is seen in bed most of the time with minimal symptoms, but with dyspnea on exertion and associated with coughing. He states that he is always coughing because of his pulmonary fibrosis. But states that Robitussin is helping him. He has poor appetite, improved through the day and eating 5200%. Hemodynamically he is stable. Hemoglobin at 11.7 compared to 12.6 yesterday WBC is improving to 11 K, glucose still more than 200 and Levemir increased to 22 units at bedside. Patient also on IV Lasix 40 mg daily started today. IV fluids stopped and patient is also on a fluid restriction. Echocardiogram done yesterday showed ejection fraction of 25-30%. Physical therapy recommended home. review of Systems CONSTITUTIONAL: No fever, no malaise, no fatigue. HEENT: No recent visual problems or hearing problems. Denied any sore throat. CARDIOVASCULAR: No orthopnea, PND, no palpitations, no syncope. PULMONARY: No shortness of breath, no cough, no hemoptysis. GASTROINTESTINAL: No diarrhea, no nausea, no vomiting, no abdominal pain. Normoactive bowel sounds. NEUROLOGICAL: No headaches, no weakness, no numbness. Active Medications Generic Name Dose Route Start Last Admin Trade Name Freq PRN Reason Stop Dose Admin Acetaminophen 650 mg 03/22/21 18:47 03/24/21 23:33 Acetaminophen Tab 325 Mg Tab PO 650 mg Q4HR PRN Administration Fever and/or Mild Pain Al Hydroxide/Mg Hydroxide 30 ml 03/24/21 11:17 03/25/21 17:52 Mag Hydrox/Al Hydrox/Simeth 30 Ml Cup PO 30 ml Q4HR PRN Administration Heartburn Aspirin 81 mg 03/23/21 09:00 03/26/21 08:12 Aspirin 81 Mg PO 81 mg DAILY [facility] Administration Atorvastatin Calcium 80 mg 03/24/21 21:00 03/26/21 19:46 Atorvastatin 80 Mg Tab PO 80 mg HS [facility] Administration Atropine Sulfate 0.5 mg 03/24/21 11:17 Atropine Sulfate 0.1 Mg/Ml 10ml Syringe IV ONCE PRN Symptomatic Bradycardia Azithromycin 500 mg 03/23/21 20:00 03/26/21 19:46 Azithromycin 500 Mg Tab PO 500 mg DAILY@2000 [facility] Administration Cholecalciferol 50 mcg 03/23/21 09:00 03/26/21 08:12 Cholecalciferol 25 Mcg (1000 Iu) Tablet PO 50 mcg DAILY [facility] Administration Clopidogrel Bisulfate 75 mg 03/23/21 11:15 03/26/21 08:12 Clopidogrel 75 Mg Tab PO 75 mg DAILY [facility] Administration Furosemide 40 mg 03/26/21 11:45 03/26/21 13:25 Furosemide 10 Mg/Ml 4 Ml Vial IV 40 mg DAILY [facility] Administration Guaifenesin/Dextromethorphan 10 ml 03/25/21 09:15 03/26/21 17:08 Guaifenesin-Dm 100-10mg/5ml 10 Ml Cup PO 10 ml Q8HR [facility] Administration Heparin Sodium (Porcine) 5,000 unit 03/25/21 09:00 03/26/21 19:47 Heparin Sodium,Porcine/Pf 5,000 Unit/0.5 Ml Syringe SQ 5,000 unit Q12HR [facility] Administration Ceftriaxone Sodium 1 gm/ 50 mls @ 100 mls/hr 03/23/21 09:30 03/26/21 08:12 Sodium Chloride IVPB 100 mls/hr Q24HR [facility] Administration Insulin Aspart 0 unit 03/25/21 07:30 03/26/21 20:39 Insulin Aspart (Novolog) 100 Unit/Ml Vial SQ 3 unit [id number] [facility] Administration Protocol Insulin Detemir 22 unit 03/27/21 07:00 Insulin Detemir (Levemir) 100 Unit/Ml Syr SQ DAILY@0700 [facility] Lisinopril 5 mg 03/26/21 10:30 03/26/21 13:25 Lisinopril 5 Mg Tab PO 5 mg DAILY [facility]ACEY Administration Metoprolol Succinate 25 mg 03/25/21 09:15 03/26/21 19:47 Metoprolol Succinate (Er) 25 Mg Tab.Er.24h PO 25 mg BID TRACEY Administration Morphine Sulfate 4 mg 03/22/21 18:47 03/25/21 17:53 Morphine Sulfate 4 Mg/Ml Syringe IV 4 mg Q2HR PRN Administration Pain Scale 8 to 10 Naloxone HCl 0.2 mg 03/22/21 18:47 Naloxone 0.4 Mg/Ml 1 Ml Vial IV Q2M PRN Opioid Reversal Nitroglycerin 0.4 mg 03/23/21 06:31 03/25/21 17:25 Nitroglycerin Sl Tabs 0.4 Mg Tab SUBLINGUAL 0.4 mg Q5M PRN Administration Chest Pain Ondansetron HCl 4 mg 03/25/21 17:57 03/25/21 18:12 Ondansetron 4 Mg/2 Ml Vial IVP 4 mg Q6HR PRN Administration Nausea And Vomiting Pantoprazole Sodium 40 mg 03/26/21 17:30 03/26/21 17:07 Pantoprazole 40 Mg Tablet PO 40 mg AC-BID [facility]ACEY Administration Spironolactone 25 mg 03/26/21 09:00 03/26/21 08:12 Spironolactone 25 Mg Tab PO 25 mg DAILY [facility] Administration Zolpidem Tartrate 5 mg 03/24/21 11:17 Zolpidem 5 Mg Tab PO HS PRN Insomnia Objective - Vital Signs Vital signs: Vital Signs Temp 98.1 F 03/26/21 16:00 Pulse 98 03/26/21 16:00 Resp 16 03/26/21 16:00 BP 130/74 03/26/21 16:00 Pulse Ox 97 03/26/21 16:00 Intake & Output 03/26/21 03/26/21 03/27/21 06:59 18:59 06:59 Intake Total 960 386 Output Total 250 450 Balance 710 -64 Weight 68 kg Intake: IV 50 cefTRIAXone 1 gm In 50 Sodium Chloride 0.9% 50 ml @ 100 mls/hr IVPB Q24HR [facility] Rx#:[id number] Oral 960 336 Output: Urine 250 450 Other: Voiding Method Toilet Urinal # Bowel Movements 1 - Exam GENERAL: The patient is alert and oriented x3, not in any acute distress. Well developed, well nourished. HEENT: Pupils are round and equally reacting to light. EOMI. No scleral icterus. No conjunctival pallor. Normocephalic, atraumatic. No pharyngeal erythema. No thyromegaly. CARDIOVASCULAR: S1 and S2 present. No murmurs, rubs, or gallops. PULMONARY: Chest is clear to auscultation, no wheezing or crackles. ABDOMEN: Soft, nontender, nondistended, normoactive bowel sounds. No palpable organomegaly. MUSCULOSKELETAL: No joint swelling or deformity. EXTREMITIES: No cyanosis, clubbing, or pedal edema. NEUROLOGICAL: Gross neurological examination did not reveal any focal deficits. SKIN: No rashes. no petechiae. - Labs CBC & Chem 7: 03/26/21 06:47 03/26/21 06:47 Labs: Abnormal Lab Results - Last 24 Hours (Table) 03/25/21 03/26/21 03/26/21 Range/Units 21:03 01:59 06:04 WBC (3.8-10.6) k/uL RBC (4.30-5.90) m/uL Hgb (13.0-17.5) gm/dL Hct (39.0-53.0) % Neutrophils # (1.3-7.7) k/uL Glucose (74-99) mg/dL POC Glucose (mg/dL) 307 H 227 H 211 H (75-99) mg/dL Procalcitonin (0.02-0.09) ng/mL 03/26/21 03/26/21 03/26/21 Range/Units 06:47 06:47 06:47 WBC 11.7 H (3.8-10.6) k/uL RBC 3.80 L (4.30-5.90) m/uL Hgb 11.7 L (13.0-17.5) gm/dL Hct 35.1 L (39.0-53.0) % Neutrophils # 8.7 H (1.3-7.7) k/uL Glucose 228 H (74-99) mg/dL POC Glucose (mg/dL) (75-99) mg/dL Procalcitonin 0.88 H (0.02-0.09) ng/mL 03/26/21 03/26/21 Range/Units 12:05 16:30 WBC (3.8-10.6) k/uL RBC (4.30-5.90) m/uL Hgb (13.0-17.5) gm/dL Hct (39.0-53.0) % Neutrophils # (1.3-7.7) k/uL Glucose (74-99) mg/dL POC Glucose (mg/dL) 236 H 242 H (75-99) mg/dL Procalcitonin (0.02-0.09) ng/mL Assessment and Plan Assessment: non STEMI. Status post cardiac catheter with PCI to circumflex artery and first obtuse branch. right lower lobe pneumonia Postoperative occult blood in stool, with mild anemia only. Mostly related to his presentation of acute gastroenteritis, which could be reactive as well Acute kidney injury . Resolved Chronic heart failure, diastolic. EF 25-30 % with ischemic cardiomyopathy History of pulmonary fibrosis and chronic hypoxic respiratory failure on 3 L oxygen at home Hypertension Hyperlipidemia Diabetes mellitus, with hyperglycemia History of osteoarthritis history of pulmonary embolism Anxiety and depression, not an active fixation Plan: This is a pleasant 60 years old male who presents with right pneumonia . continue with antibiotic, continue with pressors, pulmonary/critical care consult. Cardiology consult. GI consult. Continue with Protonix Continue with aspirin and Plavix, continue with antibiotics of ceftriaxone and Zithromax. Continue with Protonix IV 40 mg twice daily. Labs and medication were reviewed.. Continue same treatment. Continue with symptomatic treatment. Resume home medication. Monitor lytes and vitals. DVT and GI prophylaxis. Further recommendations depends on the clinical course of the patient GI Prophylaxis: Ppi Prognosis is guarded
[2021-03-27 01:54] LABS: Glucose,Whole Blood 330 mg/dL (75-99)
[2021-03-27] MEDS: INSULIN ASPART (NovoLOG) 100 UNIT/ML VIAL SQ SCH ×5 (01:56→21:07)
[2021-03-27] MEDS: ACETAMINOPHEN TAB 325 MG TAB PO PRN (02:00)
[2021-03-27 05:56] LABS: Glucose,Whole Blood 210 mg/dL (75-99)
[2021-03-27] MEDS: PANTOPRAZOLE 40 MG TABLET PO SCH ×2 (06:19→17:12)
[2021-03-27] MEDS ORDERED: LOPERAMIDE 2 MG CAP PO PRN (06:47)
[2021-03-27] MEDS ORDERED: INSULIN DETEMIR (LEVEMIR) 100 UNIT/ML SYR SQ SCH (07:00)
[2021-03-27 07:23] LABS: Basophils % (A) 0 %; Eosinophils # (A) 0.3 k/uL (0-0.7); Eosinophils % (A) 3 %; HGB 12.7 gm/dL (13.0-17.5); Lymphocytes # (A) 1.7 k/uL (1.0-4.8); Lymphocytes % (A) 18 %; MCH 31.9 pg (25.0-35.0); MCHC 35.2 g/dL (31.0-37.0); MCV 90.8 fL (80.0-100.0); Mean Platelet Volume 7.7; Monocytes # (A) 0.5 k/uL (0-1.0); Monocytes % (A) 6 %; Neutrophils # (A) 6.9 k/uL (1.3-7.7); Neutrophils % (A) 71 %; Platelet Count 243 k/uL (150-450); RBC 3.97 m/uL (4.30-5.90); RDW 13.7 % (11.5-15.5); WBC 9.8 k/uL (3.8-10.6)
[2021-03-27 07:46] LABS: African American GFR (CKD) >90 (>60 ml/min/1.73 sqM); Anion Gap 5 mmol/L; Blood Urea Nitrogen 13 mg/dL (9-20); Calcium 8.5 mg/dL (8.4-10.2); Carbon Dioxide 32 mmol/L (22-30); Chloride 101 mmol/L (98-107); Glucose 213 mg/dL (74-99); Non-African American GFR(CKD) >90 (>60 ml/min/1.73 sqM); Potassium 3.2 mmol/L (3.5-5.1); Sodium 138 mmol/L (137-145)
--- NOTE | 2021-03-27 08:35 | XR ---
EXAMINATION TYPE: XR chest 1V portable DATE OF EXAM: 03/27/2021 Comparison: 03/25/2021 Clinical History: 60-year-old male CHF Findings: Degenerative devices along the left lower chest wall with leads extending to the mid thoracic spine a nd of the neck beyond the [id number]. Heart mildly enlarged. Hyperinflation with emphysematous nikhil nge of the upper lungs. Patchy opacities in the mid and lower lungs and trace effusions are unchanged . Impression: COPD with superimposed mid and lower lung patchy airspace disease and trace effusions. Overall hieu pickett
[2021-03-27] MEDS: ASPIRIN 81 MG PO SCH (09:10)
[2021-03-27] MEDS: SPIRONOLACTONE 25 MG TAB PO SCH (09:10)
[2021-03-27] MEDS: POTASSIUM CHLORIDE ER 20 MEQ TAB.ER PO SCH ×3 (09:10→12:18)
[2021-03-27] MEDS: METOPROLOL SUCCINATE (ER) 25 MG TAB.ER.24H PO SCH ×2 (09:10→21:06)
[2021-03-27] MEDS: HEPARIN SODIUM,PORCINE/PF 5,000 UNIT/0.5 ML SYRINGE SQ SCH ×2 (09:10→21:06)
[2021-03-27] MEDS: lisinopriL 5 MG TAB PO SCH (09:10)
[2021-03-27] MEDS: CLOPIDOGREL 75 MG TAB PO SCH (09:10)
[2021-03-27] MEDS: FUROSEMIDE 10 MG/ML 4 ML VIAL IV SCH (09:10)
[2021-03-27] MEDS: CHOLECALCIFEROL 25 MCG (1000 IU) TABLET PO SCH (09:10)
--- NOTE | 2021-03-27 10:44 | P.PN ---
Subjective Progress Note Date: 03/27/21 HISTORY OF PRESENT ILLNESS: Patient is status post cardiac catheterization with PCI to circumflex and OM. Patient examined this morning at the bedside. Patient denies chest pain or pressure. Patient had an episode of chest pain overnight and was started on Nitropaste. Patient reports mild SOB which he states is chronic for him secondary to his pulmonary fibrosis. BNP this morning is 15,900. Patient is on 3L NC which he states he wears at home. Echocardiogram completed revealed ejection fraction 25-30%. Blood pressure 133/70. 03/27/2021 Patient examined this morning at the bedside. Patient denies any further episodes of chest pain. He reports his shortness of breath this morning has improved and is almost back to his baseline. He is on IV Lasix 40 mg daily. He continues to have diarrhea. Potassium 3.1. Chest x-ray this morning reveals COPD with superimposed mid and lower lung patchy airspace disease and trace effusions. PHYSICAL EXAM: VITAL SIGNS: Reviewed. GENERAL: Well-developed in no acute distress. NECK: Supple. No JVD or thyromegaly LUNGS: Respirations even and unlabored. Lungs diminished with bilateral rhonchi. HEART: Regular rate and rhythm. S1 and S2 heard. Systolic murmur noted. EXTREMITIES: Normal range of motion. No clubbing or cyanosis. Peripheral pulses intact. No lower extremity edema ASSESSMENT: Acute STEMI, s/p PCI to circumflex and OM Ischemic cardiomyopathy Bilateral pneumonia Chronic hypoxic respiratory failure secondary to pulmonary fibrosis, on home oxygen Hyperlipidemia Acute kidney injury, resolved Acute systolic heart failure Diarrhea Hypokalemia, secondary to IV diuresis and diarrhea PLAN: Continue current cardiac medications including aspirin, Lipitor, Plavix, Aldactone, lisinopril and metoprolol succinate Continue IV Lasix. Anticipate transitioning to oral dosing tomorrow Replace potassium. Recheck in a.m. Accurate I&O Daily weights Monitor kidney function Further recommendations pending patient course Nurse practitioner note has been reviewed by physician. Signing provider agrees with the documented findings, assessment, and plan of care. Objective - Vital Signs Vital signs: Vital Signs Temp 97.4 F L 03/27/21 08:56 Pulse 87 03/27/21 08:56 Resp 18 03/27/21 08:56 BP 128/84 03/27/21 08:56 Pulse Ox 98 03/27/21 08:56 Intake & Output 03/26/21 03/27/21 03/27/21 18:59 06:59 18:59 Intake Total 386 960 836 Output Total 450 Balance -64 960 836 Weight 64.9 kg Intake: IV 50 cefTRIAXone 1 gm In 50 Sodium Chloride 0.9% 50 ml @ 100 mls/hr IVPB Q24HR [facility] Rx#:[id number] Oral 336 960 836 Output: Urine 450 Other: Voiding Method Toilet Urinal # Voids 3 # Bowel Movements 1 - Labs CBC & Chem 7: 03/27/21 06:52 03/27/21 06:52 Labs: Abnormal Lab Results - Last 24 Hours (Table) 03/26/21 03/26/21 03/26/21 Range/Units 06:47 12:05 16:30 RBC (4.30-5.90) m/uL Hgb (13.0-17.5) gm/dL Hct (39.0-53.0) % Potassium (3.5-5.1) mmol/L Carbon Dioxide (22-30) mmol/L Glucose (74-99) mg/dL POC Glucose (mg/dL) 236 H 242 H (75-99) mg/dL Procalcitonin 0.88 H (0.02-0.09) ng/mL 03/26/21 03/27/21 03/27/21 Range/Units 20:16 01:52 05:55 RBC (4.30-5.90) m/uL Hgb (13.0-17.5) gm/dL Hct (39.0-53.0) % Potassium (3.5-5.1) mmol/L Carbon Dioxide (22-30) mmol/L Glucose (74-99) mg/dL POC Glucose (mg/dL) 237 H 330 H 210 H (75-99) mg/dL Procalcitonin (0.02-0.09) ng/mL 03/27/21 03/27/21 Range/Units 06:52 06:52 RBC 3.97 L (4.30-5.90) m/uL Hgb 12.7 L (13.0-17.5) gm/dL Hct 36.0 L (39.0-53.0) % Potassium 3.2 L (3.5-5.1) mmol/L Carbon Dioxide 32 H (22-30) mmol/L Glucose 213 H (74-99) mg/dL POC Glucose (mg/dL) (75-99) mg/dL Procalcitonin (0.02-0.09) ng/mL Microbiology - Last 24 Hours (Table) 03/26/21 16:15 Stool Culture - Preliminary Stool
--- NOTE | 2021-03-27 10:52 | P.PN ---
Subjective This is a pleasant 60 years old male with multiple medical problems including heart failure, diabetes mellitus, hypertension, hyperlipidemia, osteoarthritis, pulmonary embolism. Patient does not follow up with PCP he was to see Dr. Bobo but retired. He has a history of pulmonary fibrosis on 3 L oxygen at home, however he haven't talked up with his sprayer leather says start oral, but about 1.5 years ago. Presents with nausea vomiting and diarrhea chest pain. Patient says that she's been having nausea vomiting and did do the for the last 2 days, no blood. He doesn't know pulmonary times a day ago but states his bowel movements are soft. He denies abdominal pain. Also was complaining of from chest pain over the last 2 days mainly in the left shoulder radiating to both the left arm on the chest, felt like mild. No dyspnea. Also patient has a neurostimulator in his neck and lower back. When he was checking his sugar noticed it is elevated more than 600 so decided to come to emergency room, usually he follows up with Dr. Mc for his insulin pump but since last November he noticed that his sugar was been trending up to 400. Blood pressure on the low side 84/49, saturating 99% on 2 L of oxygen via nasal cannula Labs showing leukocytosis of 27.6K. hemoglobin normal at 12.3 creatinine elevated at 1.4 as well as troponin 69.2. Glucose 85-113. Liver enzymes elevated. Urinalysis is not suspicious of infection, acetone positive Coronavirus not detected. EKG shows sinus tachycardia at 113, Chest x-ray:increased right lower lobe density may reflect development infiltrate In the emergency room patient received several normal saline boluses, ceftriaxone, Zithromax, Protonix twice daily IV, D5 half-normal saline he is currently on Levophed 03/24/2021 Patient states that his breathing feels better today and minimal left sh oulder/chest pain. No significant shortness of breath. No coughing. He is hemodynamically stable and lap showing improvement including trending down WBC 2018.7 K, hemoglobin came down a little bit to 11.9 creatinine back to normal. Glucose is better controlled and his INSULIN drip and currently on a sliding scale. She was kept nothing by mouth this morning before he is possibly going for cardiac cath with cardiology team. He is on D5 half-normal saline at 50 mL/h and has been treated for pneumonia with Rocephin and Zithromax No need for pressors anymore 03/25/21 Patient is awake in bed and eating his breakfast, and if he is doing well. He is hemodynamically stable. No new complaints. No abdominal pain, no nausea vomiting. He still feels short of breath for example when he has bouts of coughing, patient has a chronic cough but denies chest pain. He is taking in bed most of the time. R no chest pain or shoulder pain. He has some loose bowel movement but no abdominal pain. He is RELATED to her oxygen by nasal cannula. Labs showing trending down WBC 214 K, hemoglobin is stable at 12.6. Creatinine remains normal. Patient underwent cardiac cath yesterday with stent placed and circumflex artery and first obtuse branch, he tolerated the procedure well. Chest x-ray showing the same changes with bilateral infiltrates suspicious for edema versus infiltrate. He remains on ceftriaxone and Zithromax. Heparin drip was discontinued, D5 half-normal saline was started as well. And he is currently on subcutaneous heparin, Protonix IV 40 mg twice daily. Also he is on dual antiplatelet therapy with aspirin and Plavix 03/26/2021 Patient is seen in bed most of the time with minimal symptoms, but with dyspnea on exertion and associated with coughing. He states that he is always coughing because of his pulmonary fibrosis. But states that Robitussin is helping him. He has poor appetite, improved through the day and eating 5200%. Hemodynamically he is stable. Hemoglobin at 11.7 compared to 12.6 yesterday WBC is improving to 11 K, glucose still more than 200 and Levemir increased to 22 units at bedside. Patient also on IV Lasix 40 mg daily started today. IV fluids stopped and patient is also on a fluid restriction. Echocardiogram done yesterday showed ejection fraction of 25-30%. Physical therapy recommended home. 03/27/2021 Patient seen and selected, his breathing easily, he is still hemodynamically stable and saturating 98% on 3 L oxygen via nasal cannula. He denies chest pain, he is eating his male with no difficulty. He had some diarrhea with C. diff was negative and started on Imodium. His IV fluid was stopped and also taking Lasix and he has good urine output. Labs showing WBC back to normal, glucose controlled more than 200-250. His Levemir dose increased to 28 units daily. His chest x-ray showing COPD with superimposed mid and lower lung patchy airspace disease and trace effusions. Overall similar. Low potassium replaced. Patient surgeon his IV Lasix to oral dose tomorrow Possible discharge in 24-48 hours if he keeps improving Physical therapy recommended home Objective - Vital Signs Vital signs: Vital Signs Temp 97.4 F L 03/27/21 08:56 Pulse 87 03/27/21 08:56 Resp 18 03/27/21 08:56 BP 128/84 03/27/21 08:56 Pulse Ox 98 03/27/21 08:56 Intake & Output 03/26/21 03/27/21 03/27/21 18:59 06:59 18:59 Intake Total 386 960 836 Output Total 450 Balance -64 960 836 Weight 64.9 kg Intake: IV 50 cefTRIAXone 1 gm In 50 Sodium Chloride 0.9% 50 ml @ 100 mls/hr IVPB Q24HR [facility] Rx#:[id number] Oral 336 960 836 Output: Urine 450 Other: Voiding Method Toilet Urinal # Voids 3 # Bowel Movements 1 - Exam GENERAL: The patient is alert and oriented x3, not in any acute distress. Well developed, well nourished. HEENT: Pupils are round and equally reacting to light. EOMI. No scleral icterus. No conjunctival pallor. Normocephalic, atraumatic. No pharyngeal erythema. No thyromegaly. CARDIOVASCULAR: S1 and S2 present. No murmurs, rubs, or gallops. PULMONARY: Chest is clear to auscultation, no wheezing or crackles. ABDOMEN: Soft, nontender, nondistended, normoactive bowel sounds. No palpable organomegaly. MUSCULOSKELETAL: No joint swelling or deformity. EXTREMITIES: No cyanosis, clubbing, or pedal edema. NEUROLOGICAL: Gross neurological examination did not reveal any focal deficits. SKIN: No rashes. no petechiae. - Labs CBC & Chem 7: 03/27/21 06:52 03/27/21 06:52 Labs: Abnormal Lab Results - Last 24 Hours (Table) 03/26/21 03/26/21 03/26/21 Range/Units 06:47 12:05 16:30 RBC (4.30-5.90) m/uL Hgb (13.0-17.5) gm/dL Hct (39.0-53.0) % Potassium (3.5-5.1) mmol/L Carbon Dioxide (22-30) mmol/L Glucose (74-99) mg/dL POC Glucose (mg/dL) 236 H 242 H (75-99) mg/dL Procalcitonin 0.88 H (0.02-0.09) ng/mL 03/26/21 03/27/21 03/27/21 Range/Units 20:16 01:52 05:55 RBC (4.30-5.90) m/uL Hgb (13.0-17.5) gm/dL Hct (39.0-53.0) % Potassium (3.5-5.1) mmol/L Carbon Dioxide (22-30) mmol/L Glucose (74-99) mg/dL POC Glucose (mg/dL) 237 H 330 H 210 H (75-99) mg/dL Procalcitonin (0.02-0.09) ng/mL 03/27/21 03/27/21 Range/Units 06:52 06:52 RBC 3.97 L (4.30-5.90) m/uL Hgb 12.7 L (13.0-17.5) gm/dL Hct 36.0 L (39.0-53.0) % Potassium 3.2 L (3.5-5.1) mmol/L Carbon Dioxide 32 H (22-30) mmol/L Glucose 213 H (74-99) mg/dL POC Glucose (mg/dL) (75-99) mg/dL Procalcitonin (0.02-0.09) ng/mL Microbiology - Last 24 Hours (Table) 03/26/21 16:15 Stool Culture - Preliminary Stool Assessment and Plan Assessment: non STEMI. Status post cardiac catheter with PCI to circumflex artery and first obtuse branch. right lower lobe pneumonia Postoperative occult blood in stool, with mild anemia only. Mostly related to his presentation of acute gastroenteritis, which could be reactive as well Acute kidney injury . Resolved Chronic heart failure, diastolic. EF 25-30 % with ischemic cardiomyopathy History of pulmonary fibrosis and chronic hypoxic respiratory failure on 3 L oxygen at home Hypertension Hyperlipidemia Diabetes mellitus, with hyperglycemia History of osteoarthritis history of pulmonary embolism Anxiety and depression, not an active fixation Plan: This is a pleasant 60 years old male who presents with right pneumonia . continue with antibiotic, continue with pressors, pulmonary/critical care consult. Cardiology consult. GI consult. Continue with Protonix Continue with aspirin and Plavix, continue with antibiotics of ceftriaxone and Zithromax. Continue with Protonix IV 40 mg twice daily. Labs and medication were reviewed.. Continue same treatment. Continue with symptomatic treatment. Resume home medication. Monitor lytes and vitals. DVT and GI prophylaxis. Further recommendations depends on the clinical course of the patient GI Prophylaxis: Ppi Prognosis is guarded
[2021-03-27] MEDS ORDERED: POTASSIUM CHLORIDE ER 20 MEQ TAB.ER PO STA ×2 (10:58→11:01)
[2021-03-27] MEDS ORDERED: INSULIN DETEMIR (LEVEMIR) 100 UNIT/ML SYR SQ ONE (11:30)
[2021-03-27] MEDS: guaiFENesin-DM 100-10MG/5ML 10 ML CUP PO SCH ×2 (11:30→17:12)
[2021-03-27 11:43] LABS: Glucose,Whole Blood 147 mg/dL (75-99)
--- NOTE | 2021-03-27 11:57 | P.PN ---
Subjective Progress Note Date: 03/27/21 Principal diagnosis: Diarrhea This is a 60-year-old male patient who presented to the emergency department with DKA, and STEMI myocardial infarction who underwent a cardiac cath with stenting yesterday. The patient has been transferred out of the ICU to the medical floor. Clostridium difficile toxin test came back negative. Patient started on Imodium as needed. Diarrhea is improving. He denies any abdominal pain, nausea, or vomiting. Objective - Vital Signs Vital signs: Vital Signs Temp 97.7 F 03/27/21 11:34 Pulse 89 03/27/21 11:34 Resp 18 03/27/21 11:34 BP 132/77 03/27/21 11:34 Pulse Ox 98 03/27/21 11:34 Intake & Output 03/26/21 03/27/21 03/27/21 18:59 06:59 18:59 Intake Total 386 960 836 Output Total 450 550 Balance -64 960 286 Weight 64.9 kg Intake: IV 50 cefTRIAXone 1 gm In 50 Sodium Chloride 0.9% 50 ml @ 100 mls/hr IVPB Q24HR [facility] Rx#:[id number] Oral 336 960 836 Output: Urine 450 550 Other: Voiding Method Toilet Urinal # Voids 3 # Bowel Movements 1 - Exam General appearance: The patient is alert, oriented, appears in no acute distress. HET: Head is normocephalic and atraumatic. Conjunctiva pink. Sclera anicteric. Neck: Supple without lymphadenopathy. Abdomen: Soft, nontender, nondistended with bowel sounds. No guarding or rigidity. Extremities: Normal skin color and turgor. No pedal edema Skin: No rashes, no jaundice Neurological: No focal deficits. Alert and oriented 3. - Labs CBC & Chem 7: 03/27/21 06:52 03/27/21 06:52 Labs: Abnormal Lab Results - Last 24 Hours (Table) 03/26/21 03/26/21 03/26/21 Range/Units 06:47 12:05 16:15 RBC (4.30-5.90) m/uL Hgb (13.0-17.5) gm/dL Hct (39.0-53.0) % Potassium (3.5-5.1) mmol/L Carbon Dioxide (22-30) mmol/L Glucose (74-99) mg/dL POC Glucose (mg/dL) 236 H (75-99) mg/dL Procalcitonin 0.88 H (0.02-0.09) ng/mL Stool Lactoferrin POSITIVE A (NEGATIVE) 03/26/21 03/26/21 03/27/21 Range/Units 16:30 20:16 01:52 RBC (4.30-5.90) m/uL Hgb (13.0-17.5) gm/dL Hct (39.0-53.0) % Potassium (3.5-5.1) mmol/L Carbon Dioxide (22-30) mmol/L Glucose (74-99) mg/dL POC Glucose (mg/dL) 242 H 237 H 330 H (75-99) mg/dL Procalcitonin (0.02-0.09) ng/mL Stool Lactoferrin (NEGATIVE) 03/27/21 03/27/21 03/27/21 Range/Units 05:55 06:52 06:52 RBC 3.97 L (4.30-5.90) m/uL Hgb 12.7 L (13.0-17.5) gm/dL Hct 36.0 L (39.0-53.0) % Potassium 3.2 L (3.5-5.1) mmol/L Carbon Dioxide 32 H (22-30) mmol/L Glucose 213 H (74-99) mg/dL POC Glucose (mg/dL) 210 H (75-99) mg/dL Procalcitonin (0.02-0.09) ng/mL Stool Lactoferrin (NEGATIVE) 03/27/21 Range/Units 11:42 RBC (4.30-5.90) m/uL Hgb (13.0-17.5) gm/dL Hct (39.0-53.0) % Potassium (3.5-5.1) mmol/L Carbon Dioxide (22-30) mmol/L Glucose (74-99) mg/dL POC Glucose (mg/dL) 147 H (75-99) mg/dL Procalcitonin (0.02-0.09) ng/mL Stool Lactoferrin (NEGATIVE) Microbiology - Last 24 Hours (Table) 03/26/21 16:15 Stool Culture - Preliminary Stool Assessment and Plan (1) Diarrhea Narrative/Plan: 60-year-old male with multiple medical comorbidities presenting with a constellation of symptoms including nausea, vomiting, diarrhea, had stool positive for occult blood. Hemoglobin stable at 12.3 from 13.1 with no reports of any further nausea vomiting diarrhea or bleeding. Patient is currently rec eiving treatment for diabetic ketoacidosis and possible non-ST elevation myocardial infarction. Symptoms likely related to uncontrolled blood sugars with stool studies ordered to rule out other etiology. No plans for endoscopic evaluation at this time. Last colonoscopy as per history in 2012 with last flexible sigmoidoscopy in 2014 for rectal bleeding and at that time EGD in 2014 showed well-healing ulcers of the antrum and duodenum. C. Difficile testing negative Current Visit: Yes Status: Acute Code(s): R19.7 - DIARRHEA, UNSPECIFIED SNOMED Code(s): 32942001 (2) DKA (diabetic ketoacidoses) Current Visit: Yes Status: Acute Code(s): E11.10 - TYPE 2 DIABETES MELLITUS WITH KETOACIDOSIS WITHOUT COMA SNOMED Code(s): 610476148 (3) History of peptic ulcer disease Current Visit: Yes Status: Acute Code(s): Z87.11 - PERSONAL HISTORY OF PEPTIC ULCER DISEASE SNOMED Code(s): 281959605 (4) Nausea and vomiting Current Visit: Yes Status: Acute Code(s): R11.2 - NAUSEA WITH VOMITING, UNSPECIFIED SNOMED Code(s): 65251456 (5) Positive occult stool blood test Current Visit: Yes Status: Acute Code(s): R19.5 - OTHER FECAL ABNORMALITIES SNOMED Code(s): 00481423 Plan: 1. Supportive care 2. Continue medical managment 3. Continue tight glycemic control 4. Continue to monitor hemoglobin and hematocrit, transfuse as needed 5. Continue to monitor stool output 6. C. Difficile negative 7. No plans for endoscopic evaluation at this time 8. Imodium as needed Thank you for this consultation, the patient is cleared for discharge from gastroenterology services Dr. Estevan Haque I agree with the dictator's note, documented as a scribe by Valentina Talamantes.
--- NOTE | 2021-03-27 13:39 | P.CN ---
Psychiatric Consult - . Consult date: 03/27/21 Consult:: 03/27/21 13:34 IDENTIFYING DATA: This patient is a 60-year-old male who is currently and lives alone and has 3 kids and is currently retired. REASON FOR REFERRAL: Psychiatry was consulted for capacity and refusing medi cations and care. HISTORY OF PRESENT ILLNESS: The patient presented to the hospital initially on 03/22 for nausea vomiting diarrhea and having chest pain. Patient was admitted to the medical floors for chest pain and DKA. He was found to have a STEMI and underwent a cardiac catheterization with stenting yesterday. Patient was seen at the bedside today after speaking to patient's nurse. Patient's nurse claims that patient was doing fine today and had no complaints. Patient was seen at the bedside and was agreeable to speak to real estate underwriter. He was calm and cooperative. He spoke about his presentation to the hospital and his need for medications. He claims that he is on an insulin pump at home and has been monitoring his diabetes closely. He states that he was out fishing and was feeling unwell and came home because he was feeling sick. He claims that he needed to come to the hospital afterwards. He states that he has been taking his medications in the hospital as well and denies refusing any care. He claims that he has a positive attitude and wants to get back to doing fishing and other outdoor activities. He claims that he used to take Wellbutrin in the past however has been off it for years now. He claims that he does not have any depression at this time or anxiety. He also states that his sleep has been "on and off" mainly related to his schedule for going fishing. At this time patient denies any suicidal or homical ideations, intent or plan. Patient denies any auditory, visual hallucinations and denies any paranoia or delusions. Patients admits to using cigarettes and occasional marijuana. PAST PSYCHIATRIC HISTORY: Patient has a a history of depression and anxiety. Patient denies being on any psychiatric medications currently and was previously on Wellbutrin several years ago. Patient denies any previous psychiatric hospitalizations. Patient denies any psychiatric outpatient follow-up. Patient denies any history of suicide attempts in the past. PAST MEDICAL HISTORY: Diabetes mellitus, coronary artery disease, COPD, hypertension, hyperlipidemia, osteoarthritis, PE. ALLERGIES: as per EMR. CHEMICAL DEPENDENCY HISTORY: as per HPI. FAMILY PSYCHIATRIC/SUBSTANCE USE HISTORY: denies SOCIAL HISTORY: Patient was born and raised in [facility]. He states that he completed high school. 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 He claims that he lives alone and is and has 3 kids. He claims that he once was in [facility] when he was 20 years old for a DUI for 5 days. MENTAL STATUS EXAM: General Appearance: Patient appears to be thin, stated age is alert, pleasant, and cooperative. Patient appears to have fair hygiene and grooming wearing hospital gown with fair eye contact. Behavior: Patient is calmly lying in bed without any agitated behavior. Speech: Patient's speech is fluent and nonpressured. Mood/Affect: Patient reports their mood is "ok", affect is congruent Suicidality/Homicidality: Patient denies having any suicidal or homicidal ideation intent or plan. Perceptions: Patient denies any visual hallucinations and denies any auditory hallucinations Though content/process: There is no evidence of any delusional thought content and thought process is linear and goal-directed. Future oriented Memory and concentration: AOX3, grossly intact for the purposes of this session. Can spell "WORLD" backwards Judgment and insight: Fair IMPRESSIONS: History of depression PLAN: -At this time patient DOES NOT meet criteria for inpatient psychiatric admission. -Patient DOES have decision making capacity at this time and is unable to reason through and communicate/appreciate the risks, benefits and alternatives to treatment. Patient is currently receiving medications and taking treatment. Patient's nurse has confirmed this. -Would recommend the following medication changes/additions: No need for antidepressants at this time. -Communicated plan to patient's nurse -Psychiatry will sign off at this time -Please contact with any questions.
--- NOTE | 2021-03-27 14:30 | P.PN ---
Subjective Progress Note Date: 03/27/21 60-year-old male, who presents to the emergency department, on March 22. He apparently came in complaining of nausea, vomiting, and diarrhea. It apparently began early the morning of this admission. The patient is a diabetic and has an insulin pump. Apparently his blood sugars have been running high. The make a long story short, he was apparently evaluated in the emergency department, and found to have diabetic ketoacidosis in addition, he was thought to have a right lower lobe pneumonia, and, was thought to have a non-ST segment elevation myocardial infarction. The patient is admitted into room 259. Currently, he's on room air. He is on an insulin drip at 5 units an hour, and getting dextrose and half-normal saline with 20 mg a potassium at 150 mL an hour. He is getting norepinephrine at 4.3 mcg/m. His chest x-ray does show patchy infiltrate right lower lobe. I recommended additional fluids, a stat random cortisol level, Rocephin IV and oral Zithromax, and a pro-calcitonin level. White count 27.6, hemoglobin 12.3, hematocrit 35.9, and platelet count normal. Sodium 136, potass ium 4, chlorides 112, CO2 16, anion gap 8, the 144, creatinine 1.40, and troponins were 3.940 and 69.2. Urine was negative. Chest x-ray showed a patchy infiltrate right lower lobe. Progress note dated 03/24/2021. 60-year-old male, who presented to the emergency department on March 22. He came in complaining of nausea, vomiting, diarrhea, and was thought to have diabetic ketoacidosis. In addition, the patient had right lower lobe pneumonia, and possible non-ST segment elevation myocardial infarction. The patient was taken to the catheterization laboratory this morning by Dr. Haque. The results of the catheterization is not yet known. The patient's most recent glucose was 269. The anion gap was 3, the bicarbonate concentration was 19. The patient's on 3 L nasal cannula. The patient was getting insulin at 4.5 units an hour, and heparin via weightbase protocol. The patient was on D5 0.45, with 20 mg a potassium at 150 mL an hour. White count 18.7 and 1.9, hematocrit 35.3, plate let count was normal. Sodium 138, potassium 4.4, chlorides 116, CO2 19, anion gap 3, E1 21, creatinine 0.79. Microbiology is negative are pending. Chest x- ray continues to show right lower lobe infiltrate. On 03/25/2001 patient seen in follow-up in the intensive care unit, he is awake and alert, in no acute distress, he sitting up in the chair, breathing comfortably, he is currently on 3 L of oxygen his pulse ox is 97%, he is in sinus mechanism, patient not on any maintenance IV fluids, he continues on combination of azithromycin and Rocephin for possibility of bibasilar pneumonia right greater than left. His been afebrile, hemodynamically he is stable, not on any vasopressor support, denies any chest pain, denies any hemoptysis, today's chest x-ray shows persistence multiple tiny bilateral pleural effusions, and persistent bilateral mid to lower lung multifocal edema and/or infiltrates on background of chronic changes. No significant change from most recent chest x-ray. Today's labs have been reviewed, white blood cell count is 14.6, hemoglobin of 12.6, sodium is 135, CO2 was 16, the rest of the renal profile were unremarkable, this morning his glucose is 351. Patient was started on basal insulin in the form of Levemir 5 units daily which we will increase to 15 units and in addition to that patient is on a sliding scale NovoLog. Cardiology is following in regards to recent history of ST elevated myocardial infarction and patient is status post cardiac catheterization and stenting of the circumflex and OM. Patient is on Plavix, aspirin, high-dose Lipitor, Aldactone. Denies any specific complaints this morning, denies any chest pain or pressure. 03/26/2021, the patient has been released out of the intensive care unit to a medical floor. The patient is resting comfortably in bed. No significant respiratory distress. Less coarse crackles in lung bases bilaterally knowing that the patient has history of pulmonary fibrosis. He is post acute myocardial infarction, post stenting and the repeat echocardiogram showed impairment of the LV function with an ejection fraction of 20-25%. Chest x-ray is showing lower lobe pulmonary infiltrates.The patient is post cardiac catheterization with PCI and stenting to the circumflex and OM. The patient's family of any chest pain. The patient did have a bout of chest pain overnight and the patient was started on Nitropaste by cardiology. His BNP level is 15,900. Echocardiogram as mentioned showed an ejection fraction of 25-30%. He remains on aspirin. He remains on Plavix. He remains on HERMELINDO inhibitor as well as Zestril 5 mg by mouth daily. He is also on Nitropaste and Toprol 25 mg by mouth twice a day. Empiric antibiotic coverage with IV Rocephin. He is also on Zithromax. Started on Aldactone 25 mg by mouth daily as of today. on today's evaluation of 03/27/2021, the patient is on 3 L of oxygen by nasal cannula. No major respiratory distress. His pulse ox is currently at 90%. The fluid balance after being given Lasix has been negative over the past 24-48 hours. His weight is down to 64.9 kg which is up 3 kg left. Meanwhile, a repeat chest x-ray was done today that showed chronic interstitial lung disease/fibrosis admission to improvement in the aeration of the right lung.The patient is making adequate Amount of urine output. He is receiving Lasix 40 mg once a day. No other significant events overnight. No angina. No palpitations. He remains on a combination of Rocephin and Zithromax as an empiric antibiotic coverage. His pro calcitonin level has dropped down to 0.8. Objective - Vital Signs Vital signs: Vital Signs Temp 97.7 F 03/27/21 11:34 Pulse 89 03/27/21 11:34 Resp 18 03/27/21 11:34 BP 132/77 03/27/21 11:34 Pulse Ox 98 03/27/21 11:34 Intake & Output 03/26/21 03/27/21 03/27/21 18:59 06:59 18:59 Intake Total 118 644 5477 Output Total 450 550 Balance -64 960 522 Weight 64.9 kg Intake: IV 50 cefTRIAXone 1 gm In 50 Sodium Chloride 0.9% 50 ml @ 100 mls/hr IVPB Q24HR [facility] Rx#:[id number] Oral 044 180 2090 Output: Urine 450 550 Other: Voiding Method Toilet Urinal # Voids 3 # Bowel Movements 1 - Exam GENERAL EXAM: Alert, very pleasant 60-year-old white male, sitting up in the recliner, currently on 3 L of oxygen pulse ox of 97% comfortable in no apparent distress. HEAD: Normocephalic/atraumatic. EYES: Normal reaction of pupils, equal size. Conjunctiva pink, sclera white. NOSE: Clear with pink turbinates. THROAT: No erythema or exudates. NECK: No masses, no JVD, no thyroid enlargement, no adenopathy. CHEST: No chest wall deformity. Symmetrical expansion. LUNGS: Equal air entry with no crackles, wheeze, rhonchi or dullness. CVS: Regular rate and rhythm, normal S1 and S2, no gallops, no murmurs, no rubs ABDOMEN: Soft, nontender. No hepatosplenomegaly, normal bowel sounds, no guarding or rigidity. EXTREMITIES: No clubbing, no edema, no cyanosis, 2+ pulses and upper and lower extremities. MUSCULOSKELETAL: Muscle strength and tone normal. SPINE: No scoliosis or deformity SKIN: No rashes CENTRAL NERVOUS SYSTEM: Alert and oriented -3. No focal deficits, tone is normal in all 4 extremities. PSYCHIATRIC: Alert and oriented -3. Appropriate affect. Intact judgment and insight. - Labs CBC & Chem 7: 03/27/21 06:52 03/27/21 06:52 Labs: Abnormal Lab Results - Last 24 Hours (Table) 03/26/21 03/26/21 03/26/21 Range/Units 16:15 16:30 20:16 RBC (4.30-5.90) m/uL Hgb (13.0-17.5) gm/dL Hct (39.0-53.0) % Potassium (3.5-5.1) mmol/L Carbon Dioxide (22-30) mmol/L Glucose (74-99) mg/dL POC Glucose (mg/dL) 242 H 237 H (75-99) mg/dL Stool Lactoferrin POSITIVE A (NEGATIVE) 03/27/21 03/27/21 03/27/21 Range/Units 01:52 05:55 06:52 RBC (4.30-5.90) m/uL Hgb (13.0-17.5) gm/dL Hct (39.0-53.0) % Potassium 3.2 L (3.5-5.1) mmol/L Carbon Dioxide 32 H (22-30) mmol/L Glucose 213 H (74-99) mg/dL POC Glucose (mg/dL) 330 H 210 H (75-99) mg/dL Stool Lactoferrin (NEGATIVE) 03/27/21 03/27/21 Range/Units 06:52 11:42 RBC 3.97 L (4.30-5.90) m/uL Hgb 12.7 L (13.0-17.5) gm/dL Hct 36.0 L (39.0-53.0) % Potassium (3.5-5.1) mmol/L Carbon Dioxide (22-30) mmol/L Glucose (74-99) mg/dL POC Glucose (mg/dL) 147 H (75-99) mg/dL Stool Lactoferrin (NEGATIVE) Microbiology - Last 24 Hours (Table) 03/26/21 16:15 Stool Culture - Preliminary Stool Assessment and Plan Plan: #1. Acute ST elevated myocardial infarction of the inferolateral wall, status post successful PCI and stenting of the left circumflex and OM 1. The patient is currently on a combination of aspirin and Plavix. The patient is on Toprol. The patient on HERMELINDO inhibitor lisinopril #2. Bibasilar pneumonia, right greater than left versus CHF. Echocardiogram showed improvement of the LV function with an ejection fraction of 20-25% and the proBNP level was elevated. Clinically improving #3. Acute diabetic ketoacidosis, recovered #4. Acute gap metabolic acidosis related to DKA #5. Acute kidney injury related to ATN, improving #6. Chronic hypoxic respiratory failure related to pulmonary fibrosis/inters titial lung disease #7. History of diabetes mellitus type 2, poorly controlled and most recently p vivianient had been on insulin pump #8. History of pancreatitis #9. History of chronic pain syndrome #10. History of hyperlipidemia #11. History of pulmonary embolism #12. Migraine cephalgia's #13 CHF with impaired ejection fraction of 20-25% Plan: Clinically improving Continue current antibiotics Aldactone 25 mg by mouth daily Lasix 40 mg po daily procalcitonin level improving Repeat chest x-ray in the morning improving Patient is still hyperglycemic we will adjust his Levemir to 28 units daily Continue sliding scale insulin Continue with the dual antiplatelet therapy, Lipitor, blockers per cardiology recommendations We'll continue to closely follow
[2021-03-27 16:43] LABS: Glucose,Whole Blood 135 mg/dL (75-99)
[2021-03-27 20:40] LABS: Glucose,Whole Blood 177 mg/dL (75-99)
[2021-03-27] MEDS: AZITHROMYCIN 500 MG TAB PO SCH (21:06)
[2021-03-27] MEDS: ATORVASTATIN 80 MG TAB PO SCH (21:06)
[2021-03-28] MEDS: guaiFENesin-DM 100-10MG/5ML 10 ML CUP PO SCH ×4 (00:53→23:28)
[2021-03-28 02:07] LABS: Glucose,Whole Blood 164 mg/dL (75-99)
[2021-03-28] MEDS: INSULIN ASPART (NovoLOG) 100 UNIT/ML VIAL SQ SCH ×5 (03:11→20:39)
[2021-03-28 06:12] LABS: Glucose,Whole Blood 298 mg/dL (75-99)
[2021-03-28] MEDS: PANTOPRAZOLE 40 MG TABLET PO SCH ×2 (06:27→17:23)
[2021-03-28] MEDS: INSULIN DETEMIR (LEVEMIR) 100 UNIT/ML SYR SQ SCH (06:27)
[2021-03-28 08:15] LABS: African American GFR (CKD) >90 (>60 ml/min/1.73 sqM); Anion Gap 6 mmol/L; Blood Urea Nitrogen 13 mg/dL (9-20); Calcium 8.4 mg/dL (8.4-10.2); Carbon Dioxide 35 mmol/L (22-30); Chloride 94 mmol/L (98-107); Glucose 312 mg/dL (74-99); Magnesium 1.5 mg/dL (1.6-2.3); Non-African American GFR(CKD) >90 (>60 ml/min/1.73 sqM); Potassium 4.7 mmol/L (3.5-5.1); Sodium 135 mmol/L (137-145)
[2021-03-28] MEDS: FUROSEMIDE 40 MG TAB PO SCH (08:28)
[2021-03-28] MEDS: HEPARIN SODIUM,PORCINE/PF 5,000 UNIT/0.5 ML SYRINGE SQ SCH ×2 (08:28→20:39)
[2021-03-28] MEDS: CHOLECALCIFEROL 25 MCG (1000 IU) TABLET PO SCH (08:28)
[2021-03-28] MEDS: CLOPIDOGREL 75 MG TAB PO SCH (08:28)
[2021-03-28] MEDS: ASPIRIN 81 MG PO SCH (08:28)
[2021-03-28] MEDS: SPIRONOLACTONE 25 MG TAB PO SCH (08:29)
[2021-03-28] MEDS: lisinopriL 5 MG TAB PO SCH (08:29)
[2021-03-28] MEDS: METOPROLOL SUCCINATE (ER) 25 MG TAB.ER.24H PO SCH ×2 (08:29→20:39)
[2021-03-28] MEDS: MAGNESIUM SULFATE-D5W PMX 1 GM in DEXTROSE/WATER 1 100ML.BAG IVPB SCH ×2 (09:48→11:00)
--- NOTE | 2021-03-28 11:52 | P.PN ---
Subjective Progress Note Date: 03/28/21 60-year-old male, who presents to the emergency department, on March 22. He apparently came in complaining of nausea, vomiting, and diarrhea. It apparently began early the morning of this admission. The patient is a diabetic and has an insulin pump. Apparently his blood sugars have been running high. The make a long story short, he was apparently evaluated in the emergency department, and found to have diabetic ketoacidosis in addition, he was thought to have a right lower lobe pneumonia, and, was thought to have a non-ST segment elevation myocardial infarction. The patient is admitted into room 259. Currently, he's on room air. He is on an insulin drip at 5 units an hour, and getting dextrose and half-normal saline with 20 mg a potassium at 150 mL an hour. He is getting norepinephrine at 4.3 mcg/m. His chest x-ray does show patchy infiltrate right lower lobe. I recommended additional fluids, a stat random cortisol level, Rocephin IV and oral Zithromax, and a pro-calcitonin level. White count 27.6, hemoglobin 12.3, hematocrit 35.9, and platelet count normal. Sodium 136, potass ium 4, chlorides 112, CO2 16, anion gap 8, the 144, creatinine 1.40, and troponins were 3.940 and 69.2. Urine was negative. Chest x-ray showed a patchy infiltrate right lower lobe. Progress note dated 03/24/2021. 60-year-old male, who presented to the emergency department on March 22. He came in complaining of nausea, vomiting, diarrhea, and was thought to have diabetic ketoacidosis. In addition, the patient had right lower lobe pneumonia, and possible non-ST segment elevation myocardial infarction. The patient was taken to the catheterization laboratory this morning by Dr. Haque. The results of the catheterization is not yet known. The patient's most recent glucose was 269. The anion gap was 3, the bicarbonate concentration was 19. The patient's on 3 L nasal cannula. The patient was getting insulin at 4.5 units an hour, and heparin via weightbase protocol. The patient was on D5 0.45, with 20 mg a potassium at 150 mL an hour. White count 18.7 and 1.9, hematocrit 35.3, plate let count was normal. Sodium 138, potassium 4.4, chlorides 116, CO2 19, anion gap 3, E1 21, creatinine 0.79. Microbiology is negative are pending. Chest x- ray continues to show right lower lobe infiltrate. On 03/25/2001 patient seen in follow-up in the intensive care unit, he is awake and alert, in no acute distress, he sitting up in the chair, breathing comfortably, he is currently on 3 L of oxygen his pulse ox is 97%, he is in sinus mechanism, patient not on any maintenance IV fluids, he continues on combination of azithromycin and Rocephin for possibility of bibasilar pneumonia right greater than left. His been afebrile, hemodynamically he is stable, not on any vasopressor support, denies any chest pain, denies any hemoptysis, today's chest x-ray shows persistence multiple tiny bilateral pleural effusions, and persistent bilateral mid to lower lung multifocal edema and/or infiltrates on background of chronic changes. No significant change from most recent chest x-ray. Today's labs have been reviewed, white blood cell count is 14.6, hemoglobin of 12.6, sodium is 135, CO2 was 16, the rest of the renal profile were unremarkable, this morning his glucose is 351. Patient was started on basal insulin in the form of Levemir 5 units daily which we will increase to 15 units and in addition to that patient is on a sliding scale NovoLog. Cardiology is following in regards to recent history of ST elevated myocardial infarction and patient is status post cardiac catheterization and stenting of the circumflex and OM. Patient is on Plavix, aspirin, high-dose Lipitor, Aldactone. Denies any specific complaints this morning, denies any chest pain or pressure. 03/26/2021, the patient has been released out of the intensive care unit to a medical floor. The patient is resting comfortably in bed. No significant respiratory distress. Less coarse crackles in lung bases bilaterally knowing that the patient has history of pulmonary fibrosis. He is post acute myocardial infarction, post stenting and the repeat echocardiogram showed impairment of the LV function with an ejection fraction of 20-25%. Chest x-ray is showing lower lobe pulmonary infiltrates.The patient is post cardiac catheterization with PCI and stenting to the circumflex and OM. The patient's family of any chest pain. The patient did have a bout of chest pain overnight and the patient was started on Nitropaste by cardiology. His BNP level is 15,900. Echocardiogram as mentioned showed an ejection fraction of 25-30%. He remains on aspirin. He remains on Plavix. He remains on HERMELINDO inhibitor as well as Zestril 5 mg by mouth daily. He is also on Nitropaste and Toprol 25 mg by mouth twice a day. Empiric antibiotic coverage with IV Rocephin. He is also on Zithromax. Started on Aldactone 25 mg by mouth daily as of today. on today's evaluation of 03/27/2021, the patient is on 3 L of oxygen by nasal cannula. No major respiratory distress. His pulse ox is currently at 90%. The fluid balance after being given Lasix has been negative over the past 24-48 hours. His weight is down to 64.9 kg which is up 3 kg left. Meanwhile, a repeat chest x-ray was done today that showed chronic interstitial lung disease/fibrosis admission to improvement in the aeration of the right lung.The patient is making adequate Amount of urine output. He is receiving Lasix 40 mg once a day. No other significant events overnight. No angina. No palpitations. He remains on a combination of Rocephin and Zithromax as an empiric antibiotic coverage. His pro calcitonin level has dropped down to 0.8. 03/28/2021 the patient remains on 3 L of oxygen. He remains on oral Lasix. He is receiving Lasix 40 mg by mouth daily. Pulse ox is around 97% on 3 L of oxygen by nasal cannula. His pro calcitonin level was also improving. He is known to have by LV. He has chronic hypoxic respiratory failure typically maintained on oxygen at 3 L. His post myocardial infarction. He had a NSTEMI and the patient underwent cardiac catheterization and stenting. His underlying echocardiogram showed systolic heart failure with an ejection fraction of 25- 30%. He is on appropriate treatment based on that. He remains on empiric antibiotic coverage with accommodation of Rocephin and Zithromax. His most recent chest x-ray from yesterday showed interstitial pulmonary fibrosis with background COPD. Overall findings are essentially stable. Cell count is normal at 9.8. Objective - Vital Signs Vital signs: Vital Signs Temp 98.0 F 03/28/21 08:00 Pulse 95 03/28/21 08:00 Resp 18 03/28/21 08:00 BP 118/71 03/28/21 08:00 Pulse Ox 97 03/28/21 08:00 Intake & Output 03/27/21 03/28/21 03/28/21 18:59 06:59 18:59 Intake Total 1772 630 Output Total 850 400 250 Balance 922 -400 380 Weight 63 kg Intake: IV 50 cefTRIAXone 1 gm In 50 Sodium Chloride 0.9% 50 ml @ 100 mls/hr IVPB Q24HR [facility] Rx#:[id number] Intake, IV Titration 100 Amount Magnesium Sulfate-D5w Pmx 100 1 gm In Dextrose/Water 1 100ml.bag @ 100 mls/hr IVPB Q1H [facility] Rx#: [id number] Oral 1772 480 Output: Urine 850 400 250 Other: Voiding Method Toilet Toilet Urinal Urinal - Exam GENERAL EXAM: Alert, very pleasant 60-year-old white male, sitting up in the recliner, currently on 3 L of oxygen pulse ox of 97% comfortable in no apparent distress. HEAD: Normocephalic/atraumatic. EYES: Normal reaction of pupils, equal size. Conjunctiva pink, sclera white. NOSE: Clear with pink turbinates. THROAT: No erythema or exudates. NECK: No masses, no JVD, no thyroid enlargement, no adenopathy. CHEST: No chest wall deformity. Symmetrical expansion. LUNGS: Equal air entry with no crackles, wheeze, rhonchi or dullness. CVS: Regular rate and rhythm, normal S1 and S2, no gallops, no murmurs, no rubs ABDOMEN: Soft, nontender. No hepatosplenomegaly, normal bowel sounds, no g uarding or rigidity. EXTREMITIES: No clubbing, no edema, no cyanosis, 2+ pulses and upper and lower extremities. MUSCULOSKELETAL: Muscle strength and tone normal. SPINE: No scoliosis or deformity SKIN: No rashes CENTRAL NERVOUS SYSTEM: Alert and oriented -3. No focal deficits, tone is normal in all 4 extremities. PSYCHIATRIC: Alert and oriented -3. Appropriate affect. Intact judgment and insight. - Labs CBC & Chem 7: 03/27/21 06:52 03/28/21 06:51 Labs: Abnormal Lab Results - Last 24 Hours (Table) 03/27/21 03/27/21 03/28/21 Range/Units 16:41 20:39 02:05 Sodium (137-145) mmol/L Chloride (98-107) mmol/L Carbon Dioxide (22-30) mmol/L Glucose (74-99) mg/dL POC Glucose (mg/dL) 135 H 177 H 164 H (75-99) mg/dL Magnesium (1.6-2.3) mg/dL 03/28/21 03/28/21 Range/Units 06:10 06:51 Sodium 135 L (137-145) mmol/L Chloride 94 L (98-107) mmol/L Carbon Dioxide 35 H (22-30) mmol/L Glucose 312 H (74-99) mg/dL POC Glucose (mg/dL) 298 H (75-99) mg/dL Magnesium 1.5 L (1.6-2.3) mg/dL Microbiology - Last 24 Hours (Table) 03/26/21 16:15 Stool Culture - Preliminary Stool Maude albicans Assessment and Plan Plan: #1. Acute NST elevated myocardial infarction of the inferolateral wall, status post successful PCI and stenting of the left circumflex and OM 1. The patient is currently on a combination of aspirin and Plavix. The patient is on Toprol. The patient on HERMELINDO inhibitor lisinopril #2. Bibasilar pulmonary infiltrates, right greater than left versus CHF. #3. Acute diabetic ketoacidosis, recovered #4. Acute gap metabolic acidosis related to DKA #5. Acute kidney injury related to ATN, improving #6. Chronic hypoxic respiratory failure related to pulmonary fibrosis/interstitial lung disease #7. History of diabetes mellitus type 2, poorly controlled and most recently patient had been on insulin pump #8. History of pancreatitis #9. History of chronic pain syndrome #10. History of hyperlipidemia #11. History of pulmonary embolism #12. Migraine cephalgia's #13 CHF with impaired ejection fraction of 20-25%. Echocardiogram showed an ejection fraction of 20-25% and the proBNP level was elevated. Clinically improving Plan: Has clinically improving. We'll going to discontinue the IV Rocephin and Zithromax as the patient has completed total of 5 day course of antibiotics procalcitonin level improving Repeat chest x-ray in the morning improving Patient is still hyperglycemic we will adjust his Levemir to 28 units daily Continue sliding scale insulin Continue with the dual antiplatelet therapy, Lipitor, blockers per cardiology recommendations We'll continue to closely follow Discharge planning is in progress.
[2021-03-28 12:10] LABS: Glucose,Whole Blood 229 mg/dL (75-99)
--- NOTE | 2021-03-28 12:43 | P.PN ---
Subjective Progress Note Date: 03/28/21 HISTORY OF PRESENT ILLNESS: Patient is status post cardiac catheterization with PCI to circumflex and OM. Patient examined this morning at the bedside. Patient denies chest pain or pressure. Patient had an episode of chest pain overnight and was started on Nitropaste. Patient reports mild SOB which he states is chronic for him secondary to his pulmonary fibrosis. BNP this morning is 15,900. Patient is on 3L NC which he states he wears at home. Echocardiogram completed revealed ejection fraction 25-30%. Blood pressure 133/70. 03/27/2021 Patient examined this morning at the bedside. Patient denies any further episodes of chest pain. He reports his shortness of breath this morning has improved and is almost back to his baseline. He is on IV Lasix 40 mg daily. He continues to have diarrhea. Potassium 3.1. Chest x-ray this morning reveals COPD with superimposed mid and lower lung patchy airspace disease and trace effusions. 03/28/2021 Patient examined this morning at the bedside. Patient denies chest pain or pressure. Denies shortness of breath. Patient has been transitioned to oral lasix. BUN 13. Creatinine 0.68. Magnesium 1.5 blood pressure 118/71. PHYSICAL EXAM: VITAL SIGNS: Reviewed. GENERAL: Well-developed in no acute distress. NECK: Supple. No JVD or thyromegaly LUNGS: Respirations even and unlabored. Lungs diminished with bilateral rhonchi. HEART: Regular rate and rhythm. S1 and S2 heard. Systolic murmur noted. EXTREMITIES: Normal range of motion. No clubbing or cyanosis. Peripheral pulses intact. No lower extremity edema ASSESSMENT: Acute STEMI, s/p PCI to circumflex and OM Ischemic cardiomyopathy Bilateral pneumonia Chronic hypoxic respiratory failure secondary to pulmonary fibrosis, on home oxygen Hyperlipidemia Acute kidney injury, resolved Acute systolic heart failure Diarrhea Hypokalemia, secondary to IV diuresis and diarrhea Hypomagnesemia PLAN: Continue current cardiac medications including aspirin, Lipitor, Plavix, Aldactone, Lasix, lisinopril and metoprolol succinate Replace magnesium Patient is stable from a cardiac standpoint Patient to follow up outpatient with Dr. Haque Further recommendations pending patient course Nurse practitioner note has been reviewed by physician. Signing provider agrees with the documented findings, assessment, and plan of care. Objective - Vital Signs Vital signs: Vital Signs Temp 98.0 F 03/28/21 08:00 Pulse 83 03/28/21 12:00 Resp 18 03/28/21 12:00 BP 144/73 03/28/21 12:00 Pulse Ox 95 03/28/21 12:00 Intake & Output 03/27/21 03/28/21 03/28/21 18:59 06:59 18:59 Intake Total 1772 630 Output Total 850 400 250 Balance 922 -400 380 Weight 63 kg Intake: IV 50 cefTRIAXone 1 gm In 50 Sodium Chloride 0.9% 50 ml @ 100 mls/hr IVPB Q24HR [facility] Rx#:[id number] Intake, IV Titration 100 Amount Magnesium Sulfate-D5w Pmx 100 1 gm In Dextrose/Water 1 100ml.bag @ 100 mls/hr IVPB Q1H [facility] Rx#: [id number] Oral 1772 480 Output: Urine 850 400 250 Other: Voiding Method Toilet Toilet Urinal Urinal - Labs CBC & Chem 7: 03/27/21 06:52 03/28/21 06:51 Labs: Abnormal Lab Results - Last 24 Hours (Table) 03/27/21 03/27/21 03/28/21 Range/Units 16:41 20:39 02:05 Sodium (137-145) mmol/L Chloride (98-107) mmol/L Carbon Dioxide (22-30) mmol/L Glucose (74-99) mg/dL POC Glucose (mg/dL) 135 H 177 H 164 H (75-99) mg/dL Magnesium (1.6-2.3) mg/dL 03/28/21 03/28/21 03/28/21 Range/Units 06:10 06:51 12:08 Sodium 135 L (137-145) mmol/L Chloride 94 L (98-107) mmol/L Carbon Dioxide 35 H (22-30) mmol/L Glucose 312 H (74-99) mg/dL POC Glucose (mg/dL) 298 H 229 H (75-99) mg/dL Magnesium 1.5 L (1.6-2.3) mg/dL Microbiology - Last 24 Hours (Table) 03/26/21 16:15 Stool Culture - Preliminary Stool Maude albicans
--- NOTE | 2021-03-28 13:34 | P.PN ---
Subjective This is a pleasant 60 years old male with multiple medical problems including heart failure, diabetes mellitus, hypertension, hyperlipidemia, osteoarthritis, pulmonary embolism. Patient does not follow up with PCP he was to see Dr. Bobo but retired. 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 Presents with nausea vomiting and diarrhea chest pain. Patient says that she's been having nausea vomiting and did do the for the last 2 days, no blood. He doesn't know pulmonary times a day ago but states his bowel movements are soft. He denies abdominal pain. Also was complaining of from chest pain over the last 2 days mainly in the left shoulder radiating to both the left arm on the chest, felt like mild. No dyspnea. Also patient has a neurostimulator in his neck and lower back. When he was checking his sugar noticed it is elevated more than 600 so decided to come to emergency room, usually he follows up with Dr. Mc for his insulin pump but since last November he noticed that his sugar was been trending up to 400. Blood pressure on the low side 84/49, saturating 99% on 2 L of oxygen via nasal cannula Labs showing leukocytosis of 27.6K. hemoglobin normal at 12.3 creatinine elevated at 1.4 as well as troponin 69.2. Glucose 85-113. Liver enzymes elevated. Urinalysis is not suspicious of infection, acetone positive Coronavirus not detected. EKG shows sinus tachycardia at 113, Chest x-ray:increased right lower lobe density may reflect development infiltrate In the emergency room patient received several normal saline boluses, ceftriaxone, Zithromax, Protonix twice daily IV, D5 half-normal saline he is currently on Levophed 03/24/2021 Patient states that his breathing feels better today and minimal left sh oulder/chest pain. No significant shortness of breath. No coughing. He is hemodynamically stable and lap showing improvement including trending down WBC 2018.7 K, hemoglobin came down a little bit to 11.9 creatinine back to normal. Glucose is better controlled and his INSULIN drip and currently on a sliding scale. She was kept nothing by mouth this morning before he is possibly going for cardiac cath with cardiology team. He is on D5 half-normal saline at 50 mL/h and has been treated for pneumonia with Rocephin and Zithromax No need for pressors anymore 03/25/21 Patient is awake in bed and eating his breakfast, and if he is doing well. He is hemodynamically stable. No new complaints. No abdominal pain, no nausea vomiting. He still feels short of breath for example when he has bouts of coughing, patient has a chronic cough but denies chest pain. He is taking in bed most of the time. R no chest pain or shoulder pain. He has some loose bowel movement but no abdominal pain. He is RELATED to her oxygen by nasal cannula. Labs showing trending down WBC 214 K, hemoglobin is stable at 12.6. Creatinine remains normal. Patient underwent cardiac cath yesterday with stent placed and circumflex artery and first obtuse branch, he tolerated the procedure well. Chest x-ray showing the same changes with bilateral infiltrates suspicious for edema versus infiltrate. He remains on ceftriaxone and Zithromax. Heparin drip was discontinued, D5 half-normal saline was started as well. And he is currently on subcutaneous heparin, Protonix IV 40 mg twice daily. Also he is on dual antiplatelet therapy with aspirin and Plavix 03/26/2021 Patient is seen in bed most of the time with minimal symptoms, but with dyspnea on exertion and associated with coughing. He states that he is always coughing because of his pulmonary fibrosis. But states that Robitussin is helping him. He has poor appetite, improved through the day and eating 5200%. Hemodynamically he is stable. Hemoglobin at 11.7 compared to 12.6 yesterday WBC is improving to 11 K, glucose still more than 200 and Levemir increased to 22 units at bedside. Patient also on IV Lasix 40 mg daily started today. IV fluids stopped and patient is also on a fluid restriction. Echocardiogram done yesterday showed ejection fraction of 25-30%. Physical therapy recommended home. 03/27/2021 Patient seen and selected, his breathing easily, he is still hemodynamically stable and saturating 98% on 3 L oxygen via nasal cannula. He denies chest pain, he is eating his male with no difficulty. He had some diarrhea with C. diff was negative and started on Imodium. His IV fluid was stopped and also taking Lasix and he has good urine output. Labs showing WBC back to normal, glucose controlled more than 200-250. His Levemir dose increased to 28 units daily. His chest x-ray showing COPD with superimposed mid and lower lung patchy airspace disease and trace effusions. Overall similar. Low potassium replaced. Patient surgeon his IV Lasix to oral dose tomorrow Possible discharge in 24-48 hours if he keeps improving Physical therapy recommended home 03/28/2021 J not in distress, no respiratory symptoms and his antibiotics of Rocephin and Zithromax have been stopped. He had diarrhea yesterday and stool culture from the present showing Maude, patient WBC is back to normal yesterday. His BMP is unremarkable, low magnesium is been placed. His Lasix swish to 40 mg daily per cardiology team. Objective - Vital Signs Vital signs: Vital Signs Temp 98.0 F 03/28/21 08:00 Pulse 83 03/28/21 12:00 Resp 18 03/28/21 12:00 BP 144/73 03/28/21 12:00 Pulse Ox 95 03/28/21 12:00 Intake & Output 03/27/21 03/28/21 03/28/21 18:59 06:59 18:59 Intake Total 1772 630 Output Total 850 400 250 Balance 922 -400 380 Weight 63 kg Intake: IV 50 cefTRIAXone 1 gm In 50 Sodium Chloride 0.9% 50 ml @ 100 mls/hr IVPB Q24HR [facility] Rx#:[id number] Intake, IV Titration 100 Amount Magnesium Sulfate-D5w Pmx 100 1 gm In Dextrose/Water 1 100ml.bag @ 100 mls/hr IVPB Q1H [facility] Rx#: [id number] Oral 1772 480 Output: Urine 850 400 250 Other: Voiding Method Toilet Toilet Urinal Urinal - Exam GENERAL: The patient is alert and oriented x3, not in any acute distress. Well developed, well nourished. HEENT: Pupils are round and equally reacting to light. EOMI. No scleral icterus. No conjunctival pallor. Normocephalic, atraumatic. No pharyngeal erythema. No thyromegaly. CARDIOVASCULAR: S1 and S2 present. No murmurs, rubs, or gallops. PULMONARY: Chest is clear to auscultation, no wheezing or crackles. ABDOMEN: Soft, nontender, nondistended, normoactive bowel sounds. No palpable organomegaly. MUSCULOSKELETAL: No joint swelling or deformity. EXTREMITIES: No cyanosis, clubbing, or pedal edema. NEUROLOGICAL: Gross neurological examination did not reveal any focal deficits. SKIN: No rashes. no petechiae. - Labs CBC & Chem 7: 03/27/21 06:52 03/28/21 06:51 Labs: Abnormal Lab Results - Last 24 Hours (Table) 03/27/21 03/27/21 03/28/21 Range/Units 16:41 20:39 02:05 Sodium (137-145) mmol/L Chloride (98-107) mmol/L Carbon Dioxide (22-30) mmol/L Glucose (74-99) mg/dL POC Glucose (mg/dL) 135 H 177 H 164 H (75-99) mg/dL Magnesium (1.6-2.3) mg/dL 03/28/21 03/28/21 03/28/21 Range/Units 06:10 06:51 12:08 Sodium 135 L (137-145) mmol/L Chloride 94 L (98-107) mmol/L Carbon Dioxide 35 H (22-30) mmol/L Glucose 312 H (74-99) mg/dL POC Glucose (mg/dL) 298 H 229 H (75-99) mg/dL Magnesium 1.5 L (1.6-2.3) mg/dL Microbiology - Last 24 Hours (Table) 03/26/21 16:15 Stool Culture - Preliminary Stool Maude albicans Assessment and Plan Assessment: non STEMI. Status post cardiac catheter with PCI to circumflex artery and first obtuse branch. right lower lobe pneumonia , improved Postoperative occult blood in stool, with mild anemia only. Mostly related to his presentation of acute gastroenteritis, which could be reactive as well ve rsus Maude infection Acute kidney injury . Resolved Chronic heart failure, diastolic. EF 25-30 % with ischemic cardiomyopathy History of pulmonary fibrosis and chronic hypoxic respiratory failure on 3 L oxygen at home Hypertension Hyperlipidemia Diabetes mellitus, with hyperglycemia History of osteoarthritis history of pulmonary embolism Anxiety and depression, not an active fixation Plan: This is a pleasant 60 years old male who presents with right pneumonia . continue with antibiotic, continue with pressors, pulmonary/critical care consult. Cardiology consult. GI consult. Continue with Protonix Continue with aspirin and Plavix, antibiotics with ceftriaxone and Zithromax was discontinued by consultants . Continue with Protonix IV 40 mg twice daily. fluconazole added for Maude in the stool. Follow-up final results of stool culture Labs and medication were reviewed.. Continue same treatment. Continue with symptomatic treatment. Resume home medication. Monitor lytes and vitals. DVT and GI prophylaxis. Further recommendations depends on the clinical course of the patient GI Prophylaxis: Ppi Prognosis is guarded
[2021-03-28] MEDS: FLUCONAZOLE 100 MG TAB PO SCH (15:06)
[2021-03-28 16:46] LABS: Glucose,Whole Blood 127 mg/dL (75-99)
[2021-03-28 20:10] LABS: Glucose,Whole Blood 158 mg/dL (75-99)
[2021-03-28] MEDS: ATORVASTATIN 80 MG TAB PO SCH (20:39)
[2021-03-29 02:37] LABS: Glucose,Whole Blood 237 mg/dL (75-99)
[2021-03-29] MEDS: INSULIN ASPART (NovoLOG) 100 UNIT/ML VIAL SQ SCH ×5 (02:42→20:03)
[2021-03-29 06:11] LABS: Glucose,Whole Blood 238 mg/dL (75-99)
[2021-03-29] MEDS: INSULIN DETEMIR (LEVEMIR) 100 UNIT/ML SYR SQ SCH (06:38)
[2021-03-29] MEDS: PANTOPRAZOLE 40 MG TABLET PO SCH ×2 (06:38→17:11)
[2021-03-29] MEDS: CHOLECALCIFEROL 25 MCG (1000 IU) TABLET PO SCH (07:56)
[2021-03-29] MEDS: FUROSEMIDE 40 MG TAB PO SCH (07:56)
[2021-03-29] MEDS: METOPROLOL SUCCINATE (ER) 25 MG TAB.ER.24H PO SCH ×2 (07:56→20:04)
[2021-03-29] MEDS: HEPARIN SODIUM,PORCINE/PF 5,000 UNIT/0.5 ML SYRINGE SQ SCH ×2 (07:56→19:39)
[2021-03-29] MEDS: CLOPIDOGREL 75 MG TAB PO SCH (07:56)
[2021-03-29] MEDS: ASPIRIN 81 MG PO SCH (07:56)
[2021-03-29] MEDS: SPIRONOLACTONE 25 MG TAB PO SCH (07:56)
[2021-03-29] MEDS: guaiFENesin-DM 100-10MG/5ML 10 ML CUP PO SCH ×3 (07:56→23:15)
[2021-03-29] MEDS: lisinopriL 5 MG TAB PO SCH (07:56)
[2021-03-29] MEDS: FLUCONAZOLE 100 MG TAB PO SCH (07:56)
[2021-03-29] MEDS ORDERED: Magnesium Replacement Protocol 1 EACH MISC MISCELLANE PRN (10:25)
[2021-03-29] MEDS ORDERED: Potassium Replacement Protocol 1 EACH MISC MISCELLANE PRN (10:25)
[2021-03-29 11:54] LABS: Glucose,Whole Blood 248 mg/dL (75-99)
--- NOTE | 2021-03-29 12:45 | P.PN ---
Subjective This is a pleasant 60-year-old male status post PCI to the circumflex and OM in the setting of Non-ST elevated myocardial infarction maintained on dual antiplatelet therapy with evidence of cardiomyopathy. He is seen and examined resting comfortably laying flat in bed in no acute distress. He has no symptoms of chest discomfort, shortness of breath, dizziness or palpitations. Blood pressure 125/70 heart rate 88 afebrile maintaining oxygen saturation on nasal cannula. Laboratory data reviewed, repeat potassium 5 and magnesium 2. Currently maintained on aspirin 81 mg daily, Plavix 75 mg daily, lisinopril 5 mg daily, Toprol 25 mg twice a day, Aldactone 25 mg daily, lasix 40 mg daily and atorvastatin 80 mg daily. Telemetry tracings reveal persistent sinus mechanism with no arrhythmias noted. GENERAL: Well-appearing, well-nourished and in no acute distress. NECK: Supple without JVD or thyromegaly. LUNGS: Breath sounds clear to auscultation bilaterally. Respiration equal and unlabored. No wheezes, rales or rhonchi. HEART: Regular rate and rhythm with systolic ejection murmur at the base, no rubs or gallops. S1 and S2 heard. EXTREMITIES: Normal range of motion, no edema. No clubbing or cyanosis. Peripheral pulses intact. ASSESSMENT Non STEMI s/p PCI circumflex and OM Ischemic cardiomyopathy Bilateral pneumonia Pulmonary fibrosis Dyslipidemia Acute systolic heart failure Hypokalemia Hypomagnesemia Acute kidney injury, resolved PLAN The importance of dual antiplatelet therapy discussed. Cardiac medications have been sent to the pharmacy with refills. Follow-up with Dr. Haque upon discharge. Nurse Practitioner note has been reviewed, I agree with a documented findings and plan of care. Patient was seen and examined. Objective - Vital Signs Vital signs: Vital Signs Temp 97.9 F 03/29/21 07:52 Pulse 88 03/29/21 08:00 Resp 18 03/29/21 08:00 BP 125/70 03/29/21 07:52 Pulse Ox 96 03/29/21 07:52 Intake & Output 03/28/21 03/29/21 03/29/21 18:59 06:59 18:59 Intake Total 1290 240 Output Total 550 200 Balance 740 -200 240 Weight 62.7 kg Intake: IV 50 cefTRIAXone 1 gm In 50 Sodium Chloride 0.9% 50 ml @ 100 mls/hr IVPB Q24HR [facility] Rx#:[id number] Intake, IV Titration 100 Amount Magnesium Sulfate-D5w Pmx 100 1 gm In Dextrose/Water 1 100ml.bag @ 100 mls/hr IVPB Q1H [facility] Rx#: [id number] Oral 1140 240 Output: Urine 550 200 Other: Voiding Method Toilet Toilet Toilet Urinal Urinal Urinal # Voids 2 - Labs CBC & Chem 7: 03/27/21 06:52 03/29/21 10:46 Labs: Abnormal Lab Results - Last 24 Hours (Table) 03/28/21 03/28/21 03/28/21 Range/Units 12:08 16:44 20:09 POC Glucose (mg/dL) 229 H 127 H 158 H (75-99) mg/dL 03/29/21 03/29/21 Range/Units 02:35 06:09 POC Glucose (mg/dL) 237 H 238 H (75-99) mg/dL Microbiology - Last 24 Hours (Table) 03/26/21 16:15 Stool Culture - Preliminary Stool Maude albicans
--- NOTE | 2021-03-29 13:29 | P.PN ---
Subjective Progress Note Date: 03/29/21 60-year-old male, who presents to the emergency department, on March 22. He apparently came in complaining of nausea, vomiting, and diarrhea. It apparently began early the morning of this admission. The patient is a diabetic and has an insulin pump. Apparently his blood sugars have been running high. The make a long story short, he was apparently evaluated in the emergency department, and found to have diabetic ketoacidosis in addition, he was thought to have a right lower lobe pneumonia, and, was thought to have a non-ST segment elevation myocardial infarction. The patient is admitted into room 259. Currently, he's on room air. He is on an insulin drip at 5 units an hour, and getting dextrose and half-normal saline with 20 mg a potassium at 150 mL an hour. He is getting norepinephrine at 4.3 mcg/m. His chest x-ray does show patchy infiltrate right lower lobe. I recommended additional fluids, a stat random cortisol level, Rocephin IV and oral Zithromax, and a pro-calcitonin level. White count 27.6, hemoglobin 12.3, hematocrit 35.9, and platelet count normal. Sodium 136, potass ium 4, chlorides 112, CO2 16, anion gap 8, the 144, creatinine 1.40, and troponins were 3.940 and 69.2. Urine was negative. Chest x-ray showed a patchy infiltrate right lower lobe. Progress note dated 03/24/2021. 60-year-old male, who presented to the emergency department on March 22. He came in complaining of nausea, vomiting, diarrhea, and was thought to have diabetic ketoacidosis. In addition, the patient had right lower lobe pneumonia, and possible non-ST segment elevation myocardial infarction. The patient was taken to the catheterization laboratory this morning by Dr. Haque. The results of the catheterization is not yet known. The patient's most recent glucose was 269. The anion gap was 3, the bicarbonate concentration was 19. The patient's on 3 L nasal cannula. The patient was getting insulin at 4.5 units an hour, and heparin via weightbase protocol. The patient was on D5 0.45, with 20 mg a potassium at 150 mL an hour. White count 18.7 and 1.9, hematocrit 35.3, plate let count was normal. Sodium 138, potassium 4.4, chlorides 116, CO2 19, anion gap 3, E1 21, creatinine 0.79. Microbiology is negative are pending. Chest x- ray continues to show right lower lobe infiltrate. On 03/25/2001 patient seen in follow-up in the intensive care unit, he is awake and alert, in no acute distress, he sitting up in the chair, breathing comfortably, he is currently on 3 L of oxygen his pulse ox is 97%, he is in sinus mechanism, patient not on any maintenance IV fluids, he continues on combination of azithromycin and Rocephin for possibility of bibasilar pneumonia right greater than left. His been afebrile, hemodynamically he is stable, not on any vasopressor support, denies any chest pain, denies any hemoptysis, today's chest x-ray shows persistence multiple tiny bilateral pleural effusions, and persistent bilateral mid to lower lung multifocal edema and/or infiltrates on background of chronic changes. No significant change from most recent chest x-ray. Today's labs have been reviewed, white blood cell count is 14.6, hemoglobin of 12.6, sodium is 135, CO2 was 16, the rest of the renal profile were unremarkable, this morning his glucose is 351. Patient was started on basal insulin in the form of Levemir 5 units daily which we will increase to 15 units and in addition to that patient is on a sliding scale NovoLog. Cardiology is following in regards to recent history of ST elevated myocardial infarction and patient is status post cardiac catheterization and stenting of the circumflex and OM. Patient is on Plavix, aspirin, high-dose Lipitor, Aldactone. Denies any specific complaints this morning, denies any chest pain or pressure. 03/26/2021, the patient has been released out of the intensive care unit to a medical floor. The patient is resting comfortably in bed. No significant respiratory distress. Less coarse crackles in lung bases bilaterally knowing that the patient has history of pulmonary fibrosis. He is post acute myocardial infarction, post stenting and the repeat echocardiogram showed impairment of the LV function with an ejection fraction of 20-25%. Chest x-ray is showing lower lobe pulmonary infiltrates.The patient is post cardiac catheterization with PCI and stenting to the circumflex and OM. The patient's family of any chest pain. The patient did have a bout of chest pain overnight and the patient was started on Nitropaste by cardiology. His BNP level is 15,900. Echocardiogram as mentioned showed an ejection fraction of 25-30%. He remains on aspirin. He remains on Plavix. He remains on HERMELINDO inhibitor as well as Zestril 5 mg by mouth daily. He is also on Nitropaste and Toprol 25 mg by mouth twice a day. Empiric antibiotic coverage with IV Rocephin. He is also on Zithromax. Started on Aldactone 25 mg by mouth daily as of today. on today's evaluation of 03/27/2021, the patient is on 3 L of oxygen by nasal cannula. No major respiratory distress. His pulse ox is currently at 90%. The fluid balance after being given Lasix has been negative over the past 24-48 hours. His weight is down to 64.9 kg which is up 3 kg left. Meanwhile, a repeat chest x-ray was done today that showed chronic interstitial lung disease/fibrosis admission to improvement in the aeration of the right lung.The patient is making adequate Amount of urine output. He is receiving Lasix 40 mg once a day. No other significant events overnight. No angina. No palpitations. He remains on a combination of Rocephin and Zithromax as an empiric antibiotic coverage. His pro calcitonin level has dropped down to 0.8. 03/28/2021 the patient remains on 3 L of oxygen. He remains on oral Lasix. He is receiving Lasix 40 mg by mouth daily. Pulse ox is around 97% on 3 L of oxygen by nasal cannula. His pro calcitonin level was also improving. He is known to have by LV. He has chronic hypoxic respiratory failure typically maintained on oxygen at 3 L. His post myocardial infarction. He had a NSTEMI and the patient underwent cardiac catheterization and stenting. His underlying echocardiogram showed systolic heart failure with an ejection fraction of 25- 30%. He is on appropriate treatment based on that. He remains on empiric antibiotic coverage with accommodation of Rocephin and Zithromax. His most recent chest x-ray from yesterday showed interstitial pulmonary fibrosis with background COPD. Overall findings are essentially stable. Cell count is normal at 9.8. 03/29/2021, the patient resting comfortably in bed on 3 L of oxygen by nasal cannula. His post non-STEMI and he is also known to have ischemic cardiomyopathy with ejection fraction of 20-25% and the patient has underlying interstitial lung disease/fibrosis. He was being treated for pneumonia. Ultimately the antibiotic 7 discontinued yesterday. On today's evaluation, the patient is resting comfortably. The patient remains on 3 L. The patient remains afebrile. Labs nothing new from today. Blood sugars remains mildly elevated. Medications include oral Lasix 40 mg once a day, Aldactone 25 mg by mouth daily, metoprolol 25 mg twice a day, Lipitor 80 mg by mouth daily, nitroglycerin on a when necessary basis, lisinopril 5 mg by mouth daily. Objective - Vital Signs Vital signs: Vital Signs Temp 98.0 F 03/29/21 12:00 Pulse 84 03/29/21 12:00 Resp 18 03/29/21 12:00 BP 137/80 03/29/21 12:00 Pulse Ox 97 03/29/21 12:00 Intake & Output 03/28/21 03/29/21 03/29/21 18:59 06:59 18:59 Intake Total 1290 720 Output Total 550 200 Balance 740 -200 720 Weight 62.7 kg Intake: IV 50 cefTRIAXone 1 gm In 50 Sodium Chloride 0.9% 50 ml @ 100 mls/hr IVPB Q24HR TRACEY Rx#:[id number] Intake, IV Titration 100 Amount Magnesium Sulfate-D5w Pmx 100 1 gm In Dextrose/Water 1 100ml.bag @ 100 mls/hr IVPB Q1H TRACEY Rx#: [id number] Oral 1140 720 Output: Urine 550 200 Other: Voiding Method Toilet Toilet Toilet Urinal Urinal Urinal # Voids 2 - Exam GENERAL EXAM: Alert, very pleasant 60-year-old white male, sitting up in the recliner, currently on 3 L of oxygen pulse ox of 97% comfortable in no apparent distress. HEAD: Normocephalic/atraumatic. EYES: Normal reaction of pupils, equal size. Conjunctiva pink, sclera white. NOSE: Clear with pink turbinates. THROAT: No erythema or exudates. NECK: No masses, no JVD, no thyroid enlargement, no adenopathy. CHEST: No chest wall deformity. Symmetrical expansion. LUNGS: Equal air entry with no crackles, wheeze, rhonchi or dullness. CVS: Regular rate and rhythm, normal S1 and S2, no gallops, no murmurs, no rubs ABDOMEN: Soft, nontender. No hepatosplenomegaly, normal bowel sounds, no guarding or rigidity. EXTREMITIES: No clubbing, no edema, no cyanosis, 2+ pulses and upper and lower extremities. MUSCULOSKELETAL: Muscle strength and tone normal. SPINE: No scoliosis or deformity SKIN: No rashes CENTRAL NERVOUS SYSTEM: Alert and oriented -3. No focal deficits, tone is normal in all 4 extremities. PSYCHIATRIC: Alert and oriented -3. Appropriate affect. Intact judgment and insight. - Labs CBC & Chem 7: 03/27/21 06:52 03/29/21 10:46 Labs: Abnormal Lab Results - Last 24 Hours (Table) 03/28/21 03/28/21 03/29/21 Range/Units 16:44 20:09 02:35 POC Glucose (mg/dL) 127 H 158 H 237 H (75-99) mg/dL 03/29/21 03/29/21 Range/Units 06:09 11:53 POC Glucose (mg/dL) 238 H 248 H (75-99) mg/dL Microbiology - Last 24 Hours (Table) 03/26/21 16:15 Stool Culture - Preliminary Stool Maude albicans Assessment and Plan Plan: #1. Acute NSTEMI elevated myocardial infarction of the inferolateral wall, status post successful PCI and stenting of the left circumflex and OM 1. The patient is currently on a combination of aspirin and Plavix. The patient is on Toprol. The patient on HERMELINDO inhibitor lisinopril .Remains free of any chest pain #2. Bibasilar pulmonary infiltrates, right greater than left versus CHF. #3. Acute diabetic ketoacidosis, recovered #4. Acute gap metabolic acidosis related to DKA #5. Acute kidney injury related to ATN, improving #6. Chronic hypoxic respiratory failure related to pulmonary fibrosis/interstitial lung disease #7. History of diabetes mellitus type 2, poorly controlled and most recently patient had been on insulin pump #8. History of pancreatitis #9. History of chronic pain syndrome #10. History of hyperlipidemia #11. History of pulmonary embolism #12. Migraine cephalgia's #13 CHF with impaired ejection fraction of 20-25%. Echocardiogram showed an ejection fraction of 20-25% and the proBNP level was elevated. Clinically improving Plan: Clinically stable. Pulmonary standpoint. The patient can be discharged from the pulmonary standpoint. Please check with cardiology for any medication adjustment. He can go back on his insulin pump once discharged. He remains on dual antiplatelet therapy, Lipitor, beta blockers and hermelindo inhibitors. I will se e him back in the office following his discharge.
[2021-03-29 16:50] LABS: Glucose,Whole Blood 128 mg/dL (75-99)
[2021-03-29 19:50] LABS: Glucose,Whole Blood 254 mg/dL (75-99)
[2021-03-29] MEDS: ACETAMINOPHEN TAB 325 MG TAB PO PRN (20:03)
[2021-03-29] MEDS: ATORVASTATIN 80 MG TAB PO SCH (20:03)
[2021-03-30] MEDS: INSULIN ASPART (NovoLOG) 100 UNIT/ML VIAL SQ SCH ×3 (01:45→12:05)
[2021-03-30] MEDS: PANTOPRAZOLE 40 MG TABLET PO SCH (05:59)
[2021-03-30 06:49] LABS: Glucose,Whole Blood 351 mg/dL (75-99)
[2021-03-30] MEDS: INSULIN DETEMIR (LEVEMIR) 100 UNIT/ML SYR SQ SCH (06:55)
[2021-03-30 09:28] VITALS: BP 119/57; RESP 16; TEMP 98.2
[2021-03-30] MEDS: guaiFENesin-DM 100-10MG/5ML 10 ML CUP PO SCH (09:29)
[2021-03-30] MEDS: CHOLECALCIFEROL 25 MCG (1000 IU) TABLET PO SCH (09:29)
[2021-03-30] MEDS: FLUCONAZOLE 100 MG TAB PO SCH (09:29)
[2021-03-30] MEDS: FUROSEMIDE 40 MG TAB PO SCH (09:29)
[2021-03-30] MEDS: HEPARIN SODIUM,PORCINE/PF 5,000 UNIT/0.5 ML SYRINGE SQ SCH (09:29)
[2021-03-30] MEDS: METOPROLOL SUCCINATE (ER) 25 MG TAB.ER.24H PO SCH (09:30)
[2021-03-30] MEDS: CLOPIDOGREL 75 MG TAB PO SCH (09:30)
[2021-03-30] MEDS: ASPIRIN 81 MG PO SCH (09:30)
[2021-03-30] MEDS: SPIRONOLACTONE 25 MG TAB PO SCH (09:30)
[2021-03-30] MEDS: lisinopriL 5 MG TAB PO SCH (09:30)
--- NOTE | 2021-03-30 10:32 | P.PN ---
Subjective Progress Note Date: 03/30/21 60-year-old male, who presents to the emergency department, on March 22. He apparently came in complaining of nausea, vomiting, and diarrhea. It apparently began early the morning of this admission. The patient is a diabetic and has an insulin pump. Apparently his blood sugars have been running high. The make a long story short, he was apparently evaluated in the emergency department, and found to have diabetic ketoacidosis in addition, he was thought to have a right lower lobe pneumonia, and, was thought to have a non-ST segment elevation myocardial infarction. The patient is admitted into room 259. Currently, he's on room air. He is on an insulin drip at 5 units an hour, and getting dextrose and half-normal saline with 20 mg a potassium at 150 mL an hour. He is getting norepinephrine at 4.3 mcg/m. His chest x-ray does show patchy infiltrate right lower lobe. I recommended additional fluids, a stat random cortisol level, Rocephin IV and oral Zithromax, and a pro-calcitonin level. White count 27.6, hemoglobin 12.3, hematocrit 35.9, and platelet count normal. Sodium 136, potass ium 4, chlorides 112, CO2 16, anion gap 8, the 144, creatinine 1.40, and troponins were 3.940 and 69.2. Urine was negative. Chest x-ray showed a patchy infiltrate right lower lobe. Progress note dated 03/24/2021. 60-year-old male, who presented to the emergency department on March 22. He came in complaining of nausea, vomiting, diarrhea, and was thought to have diabetic ketoacidosis. In addition, the patient had right lower lobe pneumonia, and possible non-ST segment elevation myocardial infarction. The patient was taken to the catheterization laboratory this morning by Dr. Haque. The results of the catheterization is not yet known. The patient's most recent glucose was 269. The anion gap was 3, the bicarbonate concentration was 19. The patient's on 3 L nasal cannula. The patient was getting insulin at 4.5 units an hour, and heparin via weightbase protocol. The patient was on D5 0.45, with 20 mg a potassium at 150 mL an hour. White count 18.7 and 1.9, hematocrit 35.3, plate let count was normal. Sodium 138, potassium 4.4, chlorides 116, CO2 19, anion gap 3, E1 21, creatinine 0.79. Microbiology is negative are pending. Chest x- ray continues to show right lower lobe infiltrate. On 03/25/2001 patient seen in follow-up in the intensive care unit, he is awake and alert, in no acute distress, he sitting up in the chair, breathing comfortably, he is currently on 3 L of oxygen his pulse ox is 97%, he is in sinus mechanism, patient not on any maintenance IV fluids, he continues on combination of azithromycin and Rocephin for possibility of bibasilar pneumonia right greater than left. His been afebrile, hemodynamically he is stable, not on any vasopressor support, denies any chest pain, denies any hemoptysis, today's chest x-ray shows persistence multiple tiny bilateral pleural effusions, and persistent bilateral mid to lower lung multifocal edema and/or infiltrates on background of chronic changes. No significant change from most recent chest x-ray. Today's labs have been reviewed, white blood cell count is 14.6, hemoglobin of 12.6, sodium is 135, CO2 was 16, the rest of the renal profile were unremarkable, this morning his glucose is 351. Patient was started on basal insulin in the form of Levemir 5 units daily which we will increase to 15 units and in addition to that patient is on a sliding scale NovoLog. Cardiology is following in regards to recent history of ST elevated myocardial infarction and patient is status post cardiac catheterization and stenting of the circumflex and OM. Patient is on Plavix, aspirin, high-dose Lipitor, Aldactone. Denies any specific complaints this morning, denies any chest pain or pressure. 03/26/2021, the patient has been released out of the intensive care unit to a medical floor. The patient is resting comfortably in bed. No significant respiratory distress. Less coarse crackles in lung bases bilaterally knowing that the patient has history of pulmonary fibrosis. He is post acute myocardial infarction, post stenting and the repeat echocardiogram showed impairment of the LV function with an ejection fraction of 20-25%. Chest x-ray is showing lower lobe pulmonary infiltrates.The patient is post cardiac catheterization with PCI and stenting to the circumflex and OM. The patient's family of any chest pain. The patient did have a bout of chest pain overnight and the patient was started on Nitropaste by cardiology. His BNP level is 15,900. Echocardiogram as mentioned showed an ejection fraction of 25-30%. He remains on aspirin. He remains on Plavix. He remains on HERMELINDO inhibitor as well as Zestril 5 mg by mouth daily. He is also on Nitropaste and Toprol 25 mg by mouth twice a day. Empiric antibiotic coverage with IV Rocephin. He is also on Zithromax. Started on Aldactone 25 mg by mouth daily as of today. on today's evaluation of 03/27/2021, the patient is on 3 L of oxygen by nasal cannula. No major respiratory distress. His pulse ox is currently at 90%. The fluid balance after being given Lasix has been negative over the past 24-48 hours. His weight is down to 64.9 kg which is up 3 kg left. Meanwhile, a repeat chest x-ray was done today that showed chronic interstitial lung disease/fibrosis admission to improvement in the aeration of the right lung.The patient is making adequate Amount of urine output. He is receiving Lasix 40 mg once a day. No other significant events overnight. No angina. No palpitations. He remains on a combination of Rocephin and Zithromax as an empiric antibiotic coverage. His pro calcitonin level has dropped down to 0.8. 03/28/2021 the patient remains on 3 L of oxygen. He remains on oral Lasix. He is receiving Lasix 40 mg by mouth daily. Pulse ox is around 97% on 3 L of oxygen by nasal cannula. His pro calcitonin level was also improving. He is known to have by LV. He has chronic hypoxic respiratory failure typically maintained on oxygen at 3 L. His post myocardial infarction. He had a NSTEMI and the patient underwent cardiac catheterization and stenting. His underlying echocardiogram showed systolic heart failure with an ejection fraction of 25- 30%. He is on appropriate treatment based on that. He remains on empiric antibiotic coverage with accommodation of Rocephin and Zithromax. His most recent chest x-ray from yesterday showed interstitial pulmonary fibrosis with background COPD. Overall findings are essentially stable. Cell count is normal at 9.8. 03/29/2021, the patient resting comfortably in bed on 3 L of oxygen by nasal cannula. His post non-STEMI and he is also known to have ischemic cardiomyopathy with ejection fraction of 20-25% and the patient has underlying interstitial lung disease/fibrosis. He was being treated for pneumonia. Ultimately the antibiotic 7 discontinued yesterday. On today's evaluation, the patient is resting comfortably. The patient remains on 3 L. The patient remains afebrile. Labs nothing new from today. Blood sugars remains mildly elevated. Medications include oral Lasix 40 mg once a day, Aldactone 25 mg by mouth daily, metoprolol 25 mg twice a day, Lipitor 80 mg by mouth daily, nitroglycerin on a when necessary basis, lisinopril 5 mg by mouth daily. 03/30/2021, the patient is clinically stable. No change compared to yesterday. Still on 3 L. Blood sugars are elevated and the patient has an insulin pump at home that he is going to utilize at the time of discharge. We are still awaiting final. From cardiology regarding his discharge. He is known to have pulmonary fibrosis. He is free of any chest pain. Objective - Vital Signs Vital signs: Vital Signs Temp 98.2 F 03/30/21 08:00 Pulse 83 03/30/21 08:00 Resp 16 03/30/21 08:00 BP 119/57 03/30/21 08:00 Pulse Ox 99 03/30/21 08:00 Intake & Output 03/29/21 03/30/21 03/30/21 18:59 06:59 18:59 Intake Total 1200 118 Balance 1200 118 Weight 63 kg Intake: Oral 1200 118 Other: Voiding Method Toilet Toilet Urinal Urinal # Voids 2 - Exam GENERAL EXAM: Alert, very pleasant 60-year-old white male, sitting up in the recliner, currently on 3 L of oxygen pulse ox of 97% comfortable in no apparent distress. HEAD: Normocephalic/atraumatic. EYES: Normal reaction of pupils, equal size. Conjunctiva pink, sclera white. NOSE: Clear with pink turbinates. THROAT: No erythema or exudates. NECK: No masses, no JVD, no thyroid enlargement, no adenopathy. CHEST: No chest wall deformity. Symmetrical expansion. LUNGS: Equal air entry with no crackles, wheeze, rhonchi or dullness. CVS: Regular rate and rhythm, normal S1 and S2, no gallops, no murmurs, no rubs ABDOMEN: Soft, nontender. No hepatosplenomegaly, normal bowel sounds, no guarding or rigidity. EXTREMITIES: No clubbing, no edema, no cyanosis, 2+ pulses and upper and lower extremities. MUSCULOSKELETAL: Muscle strength and tone normal. SPINE: No scoliosis or deformity SKIN: No rashes CENTRAL NERVOUS SYSTEM: Alert and oriented -3. No focal deficits, tone is normal in all 4 extremities. PSYCHIATRIC: Alert and oriented -3. Appropriate affect. Intact judgment and insight. - Labs CBC & Chem 7: 03/27/21 06:52 03/29/21 10:46 Labs: Abnormal Lab Results - Last 24 Hours (Table) 03/29/21 03/29/21 03/29/21 Range/Units 11:53 16:48 19:48 POC Glucose (mg/dL) 248 H 128 H 254 H (75-99) mg/dL 03/30/21 Range/Units 06:47 POC Glucose (mg/dL) 351 H (75-99) mg/dL Microbiology - Last 24 Hours (Table) 03/26/21 16:15 Stool Culture - Final Stool Maude albicans Assessment and Plan Plan: #1. Acute NSTEMI elevated myocardial infarction of the inferolateral wall, status post successful PCI and stenting of the left circumflex and OM 1. The patient is currently on a combination of aspirin and Plavix. The patient is on Toprol. The patient on HERMELINDO inhibitor lisinopril .Remains free of any chest pain #2. Bibasilar pulmonary infiltrates, right greater than left versus CHF. #3. Acute diabetic ketoacidosis, recovered #4. Acute gap metabolic acidosis related to DKA #5. Acute kidney injury related to ATN, improving #6. Chronic hypoxic respiratory failure related to pulmonary fibrosis/interstitial lung disease #7. History of diabetes mellitus type 2, poorly controlled and most recently patient had been on insulin pump #8. History of pancreatitis #9. History of chronic pain syndrome #10. History of hyperlipidemia #11. History of pulmonary embolism #12. Migraine cephalgia's #13 CHF with impaired ejection fraction of 20-25%. Echocardiogram showed an ejection fraction of 20-25% and the proBNP level was elevated. Clinically improving Plan: Clinically stable. Awaiting clearance from cardiology. Insulin pump at a time of discharge.
[2021-03-30 11:52] LABS: Glucose,Whole Blood 296 mg/dL (75-99)
[2021-03-30 12:05] VITALS: PULSE 80
--- NOTE | 2021-03-31 13:43 | P.DS ---
Providers Date of admission: 03/22/21 18:53 Attending physician: Kelsie Ovalle Consults: 03/22/21 18:47 Consult Physician Routine Consulting Provider: Bunny Melgar Consult Reason/Comments: pneumonia, icu care Do you want consulting provider notified?: Yes Consult Physician Stat Consulting Provider: Baldo Crawley Consult Reason/Comments: NSTEMI Do you want consulting provider notified?: Yes 03/24/21 11:17 Consult Physician Routine Consulting Provider: [facility] Consult Reason/Comments: Post Interventional patient Do you want consulting provider notified?: Already Contacted 03/27/21 11:05 Consult Physician Urgent Consulting Provider: Pio Nunez Consult Reason/Comments: assess capacity to make medical decision; also refues medications and care Do you want consulting provider notified?: Yes Primary care physician: Stated None Hospital Course: Diagnoses: non STEMI. Status post cardiac catheter with PCI to circumflex artery and first obtuse branch. right lower lobe pneumonia , improved Postoperative occult blood in stool, with mild anemia only. Mostly related to his presentation of acute gastroenteritis, which could be reactive as well versus Maude infection Acute kidney injury . Resolved Chronic heart failure, diastolic. EF 25-30 % with ischemic cardiomyopathy History of pulmonary fibrosis and chronic hypoxic respiratory failure on 3 L oxygen at home Hypertension Hyperlipidemia Diabetes mellitus, with hyperglycemia History of osteoarthritis history of pulmonary embolism Anxiety and depression, not an active fixation Hospital course: This is a pleasant 60 years old male with multiple medical problems including heart failure, diabetes mellitus, hypertension, hyperlipidemia, osteoarthritis, pulmonary embolism. Patient does not follow up with no PCP he was to see Dr. Bobo but retired.He has a history of pulmonary fibrosis on 3 L oxygen at home, however he haven't talked up with his chromium plater Presents with nausea vomiting and diarrhea and chest pain.he was complaining of from chest pain over the last 2 days. Patient has been evaluated by multiple consultants including pulmonary, cardiology and gastroenterology. He was found to have non-STEMI status post PCI to circumflex and OM. This ischemic cardiomyopathy and ejection fraction 25-30%. He was started on aspirin, Plavix and Lasix. His symptoms improved and on the day of discharge he denies chest pain no dyspnea no abdominal or urinary symptoms. No change in urinary habits. No fever Gastroenterology evaluated the patient as well and recommended no endoscopic intervention is needed. Patient was cleared for discharge by all consultants including cardiology, pulmonary and gastroenterology Patient was stable and ready to go home. Physical therapy recommended home with home care Problems and management plan were discussed with the patient and he verbalized understanding and acceptance Patient was found stable and can be discharged home however he needs follow-up as an outpatient. Patient was instructed to follow up with PCP within one week and patient agrees. Patient was instructed to contact his medical insurance pro vider to find new PCP and make a follow-up contact in one week and he agrees. Patient was instructed to follow up with gastroenterology team and a 3-[address] Haque and PETRONA Hunt. Also he agrees with the appointments made for him with Dr. Brady on the chromium plater on and states he will follow- up Physical exam Gen: patient is a AAOx3, no distress CVS: S1-S2, RRR, no murmur -Lungs: B/L CTA, no wheezing, on a 3 L oxygen per minute via nasal cannula Abdomen: soft, no distention, no tenderness, positive bowel sounds Extremity: no leg edema or induration Time spent more than 35 minutes Patient Condition at Discharge: Critical Plan - Discharge Summary Discharge Rx Participant: Yes New Discharge Prescriptions: New Fluconazole [Diflucan] 100 mg PO DAILY #5 tab Spironolactone [Aldactone] 25 mg PO DAILY #90 tab Clopidogrel [Plavix] 75 mg PO DAILY #90 tab Metoprolol Succinate (ER) [Toprol XL] 25 mg PO BID #90 tab.er.24h lisinopriL [Zestril] 5 mg PO DAILY #90 tab Insulin Detemir (Levemir) [Levemir] 30 unit SQ DAILY@0700 #1 vial Nitroglycerin Sl Tabs [Nitrostat] 0.4 mg SUBLINGUAL Q5M PRN #20 tab PRN Reason: Chest Pain guaiFENesin-DM 100-10MG/5ML [Robitussin DM] 10 ml PO Q8HR 5 Days #60 ml Acetaminophen Tab [Tylenol] 650 mg PO Q4HR PRN tab PRN Reason: Fever And/Or Mild Pain Furosemide [Lasix] 40 mg PO DAILY #90 tab Atorvastatin [Lipitor] 80 mg PO HS #90 tab Continue Cholecalciferol [Vitamin D3 (25 Mcg = 1000 Iu)] 50 mcg PO DAILY INSULIN LISPRO (For Pump) [humaLOG (For Pump)] 0.01 units SQ-PUMP CONTINUOUS Aspirin EC [Ecotrin Low Dose] 81 mg PO DAILY #30 tab Discharge Medication List Cholecalciferol [Vitamin D3 (25 Mcg = 1000 Iu)] 50 mcg PO DAILY 02/22/16 [History] INSULIN LISPRO (For Pump) [humaLOG (For Pump)] 0.01 units SQ-PUMP CONTINUOUS 10/29/16 [History] Acetaminophen Tab [Tylenol] 650 mg PO Q4HR PRN tab 03/29/21 [Rx] Aspirin EC [Ecotrin Low Dose] 81 mg PO DAILY #30 tab 03/29/21 [Rx] Atorvastatin [Lipitor] 80 mg PO HS #90 tab 03/29/21 [Rx] Clopidogrel [Plavix] 75 mg PO DAILY #90 tab 03/29/21 [Rx] Fluconazole [Diflucan] 100 mg PO DAILY #5 tab 03/29/21 [Rx] Furosemide [Lasix] 40 mg PO DAILY #90 tab 03/29/21 [Rx] Insulin Detemir (Levemir) [Levemir] 30 unit SQ DAILY@0700 #1 vial 03/29/21 [Rx] Metoprolol Succinate (ER) [Toprol XL] 25 mg PO BID #90 tab.er.24h 03/29/21 [Rx] Nitroglycerin Sl Tabs [Nitrostat] 0.4 mg SUBLINGUAL Q5M PRN #20 tab 03/29/21 [Rx] Spironolactone [Aldactone] 25 mg PO DAILY #90 tab 03/29/21 [Rx] guaiFENesin-DM 100-10MG/5ML [Robitussin DM] 10 ml PO Q8HR 5 Days #60 ml 03/29/21 [Rx] lisinopriL [Zestril] 5 mg PO DAILY #90 tab 03/29/21 [Rx] Follow up Appointment(s)/Referral(s): Noni Clarke PAC [REFERRING] - 4 Weeks None,Stated [Primary Care Provider] - 1-2 days Ciro Haque MD [STAFF PHYSICIAN] - 1 Week (Office will call to set up appt date and time) Bandar Tristna MD [STAFF PHYSICIAN] - 04/10/21 4:00 pm Patient Instructions/Handouts: Heart Attack (DC), Diabetic Ketoacidosis (DC), Coronary Intravascular Stent Placement (DC) Activity/Diet/Wound Care/Special Instructions: Heart healthy, low carbohydrate diet Activity is restricted till you see your doctor Resume previous insulin pump, otherwise use insulin Levemir 30 units daily N.B.police do NOT use both insulin pump and Levemir 30 units daily (use only one of them) Discharge Disposition: HOME WITH HOME HEALTH SERVICES
--- NOTE | 2021-04-02 11:37 | CDI ---
Documentation Clarification Form Date: 04/02/21 From: GERALDINE Guerra/Christine Love Admit Date: 03/22/21 Discharge Date: 03/30/21 Patient Name: Neptali Chilel Visit Number: [id number] ATTENTION: The Clinical Documentation Specialists (CDI) and [facility] Coding Staff appreciate your assistance in clarifying documentation. Please respond to the clarification below the line at the bottom and electronically sign. The CDI & [facility] Coding staff will review the response and follow-up if needed. Please note: Queries are made part of the Legal Health Record. If you have any questions, please contact the author of this message via ITS. Dear Dr. Howard, There is documentation of shock in the H&P. Additional clarification is requested. History/Risk Factors: Pneumonia, NSTEMI, CAD, ICM, CHF, DKA, ATN, Chronic Resp Failure Clinical Indicators: Vitals: BP 73/46, HR 105, O2 Sat 96 Treatment: Levophed IV, Rocephin IV, IV Lasix, Heparin IV, Nitroglycerin, CATH w/ PTCA x 2 BEATRIZ Can you please clarify the etiology of the shock? [ ] Septic shock due to pneumonia [ ] Cardiogenic shock [ ] Hypotension, shock ruled out [ ] Other, please specify [ ] Unable to determine Multifactorial, hypovolemic, septic , resolved MTDD
== END 2021-03-30 14:45 | disposition home or self-care (01) | DRG 246 ==
LOC: EC 14:39 → 2SICU 18:53 → 3SCARD 03-25 14:18
PROVIDERS: ADMIT Hospitalist; ATTEND Hospitalist
PROC: 3E033XZ Introduction of Vasopressor into Peripheral Vein, Percutaneous Approach (ICD-10-PCS; 2021-03-23)
PROC: B2111ZZ Fluoroscopy of Multiple Coronary Arteries using Low Osmolar Contrast (ICD-10-PCS; 2021-03-24)
PROC: 027135Z Dilation of Coronary Artery, Two Arteries with Two Drug-eluting Intraluminal Devices, Percutaneous Approach (ICD-10-PCS; principal; 2021-03-24 10:00)
PROC: 4A023N7 Measurement of Cardiac Sampling and Pressure, Left Heart, Percutaneous Approach (ICD-10-PCS; 2021-03-24 10:00)
DX: I21.4 Non-ST elevation (NSTEMI) myocardial infarction (principal); J18.9 Pneumonia, unspecified organism; N17.0 Acute kidney failure with tubular necrosis; R65.21 Severe sepsis with septic shock; R57.0 Cardiogenic shock; E11.10 Type 2 diabetes mellitus with ketoacidosis without coma; I50.43 Acute on chronic combined systolic (congestive) and diastolic (congestive) heart failure; A41.9 Sepsis, unspecified organism; I13.0 Hypertensive heart and chronic kidney disease with heart failure and stage 1 through stage 4 chronic kidney disease, or unspecified chronic kidney disease; J44.0 Chronic obstructive pulmonary disease with (acute) lower respiratory infection; J96.11 Chronic respiratory failure with hypoxia; B37.89 Other sites of candidiasis; D63.1 Anemia in chronic kidney disease; J84.10 Pulmonary fibrosis, unspecified; E11.22 Type 2 diabetes mellitus with diabetic chronic kidney disease; E11.51 Type 2 diabetes mellitus with diabetic peripheral angiopathy without gangrene; E11.42 Type 2 diabetes mellitus with diabetic polyneuropathy; Z99.81 Dependence on supplemental oxygen; Z20.822 Contact with and (suspected) exposure to COVID-19; Z79.4 Long term (current) use of insulin; Z96.41 Presence of insulin pump (external) (internal); G89.4 Chronic pain syndrome; I25.10 Atherosclerotic heart disease of native coronary artery without angina pectoris; E78.5 Hyperlipidemia, unspecified; N18.9 Chronic kidney disease, unspecified; M19.90 Unspecified osteoarthritis, unspecified site; G43.909 Migraine, unspecified, not intractable, without status migrainosus; M10.9 Gout, unspecified; F32.9 Major depressive disorder, single episode, unspecified; F41.9 Anxiety disorder, unspecified; F17.200 Nicotine dependence, unspecified, uncomplicated; R00.0 Tachycardia, unspecified; I44.5 Left posterior fascicular block; E86.0 Dehydration; E87.5 Hyperkalemia; E86.1 Hypovolemia; I25.5 Ischemic cardiomyopathy; E87.6 Hypokalemia; E83.42 Hypomagnesemia; R63.0 Anorexia; A08.8 Other specified intestinal infections; Z71.3 Dietary counseling and surveillance; Z60.2 Problems related to living alone; Z79.02 Long term (current) use of antithrombotics/antiplatelets; Z79.82 Long term (current) use of aspirin; Z79.899 Other long term (current) drug therapy; Z95.5 Presence of coronary angioplasty implant and graft; Z86.711 Personal history of pulmonary embolism; Z87.11 Personal history of peptic ulcer disease; Z87.19 Personal history of other diseases of the digestive system; Z86.14 Personal history of Methicillin resistant Staphylococcus aureus infection; Z90.49 Acquired absence of other specified parts of digestive tract; Z98.890 Other specified postprocedural states; Z95.828 Presence of other vascular implants and grafts; Z82.49 Family history of ischemic heart disease and other diseases of the circulatory system; Z80.1 Family history of malignant neoplasm of trachea, bronchus and lung
CPT/HCPCS: 36415; 71045; 71046; 80048; 80051; 80053; 81003; 82009; 82272; 82533; 82565; 82947; 83630; 83735; 83880; 84100; 84132; 84145; 84484; 84520; 85025; 85027; 85610; 85730; 87045; 87046; 87324; 87328; 87329; 87635; 93005; 93306; 93308; 93458; 94760; 96361; 96374; 96375; 99285

== ENCOUNTER 2022-10-05 00:33 | Inpatient (IN) | payer MEDICARE ==
--- NOTE | 2022-10-05 00:36 | ED ---
Chest Pain HPI - General Stated Complaint: Chest pain Time Seen by Provider: 10/05/22 00:35 Source: RN notes reviewed, old records reviewed - History of Present Illness Initial Comments: This is a 62-year-old male DF for evaluation patient Dese for evaluation regards to chest pain symptoms began sitting on a couch worse again began to smokes weed he was hanging out at this point. Patient givenand this chest than her hours of otitis his chest throughout the day. History of recent stent placement MD Complaint: chest pain -: hour(s) Onset: during rest, during exertion Pain Location: substernal, left chest Pain Radiation: none Severity: moderate Quality: tightness Consistency: intermittent Improves With: nothing Worsens With: nothing Anginal Symptoms: diaphoresis Other Symptoms: palpitations Treatments Prior to Arrival: none - Related Data Home Medications Medication Instructions Recorded Confirmed Cholecalciferol [Vitamin D3 (25 50 mcg PO DAILY 02/22/16 03/22/21 Mcg = 1000 Iu)] INSULIN LISPRO (For Pump) [humaLOG 0.01 units SQ-PUMP CONTINUOUS 10/29/16 03/22/21 (For Pump)] Previous Rx's Medication Instructions Recorded Acetaminophen Tab [Tylenol] 650 mg PO Q4HR PRN tab 03/29/21 Aspirin EC [Ecotrin Low Dose] 81 mg PO DAILY #30 tab 03/29/21 Atorvastatin [Lipitor] 80 mg PO HS #90 tab 03/29/21 Clopidogrel [Plavix] 75 mg PO DAILY #90 tab 03/29/21 Fluconazole [Diflucan] 100 mg PO DAILY #5 tab 03/29/21 Furosemide [Lasix] 40 mg PO DAILY #90 tab 03/29/21 Insulin Detemir (Levemir) [Levemir] 30 unit SQ DAILY@0700 #1 vial 03/29/21 Metoprolol Succinate (ER) [Toprol 25 mg PO BID #90 tab.er.24h 03/29/21 XL] Nitroglycerin Sl Tabs [Nitrostat] 0.4 mg SUBLINGUAL Q5M PRN #20 tab 03/29/21 Spironolactone [Aldactone] 25 mg PO DAILY #90 tab 03/29/21 guaiFENesin-DM 100-10MG/5ML 10 ml PO Q8HR 5 Days #60 ml 03/29/21 [Robitussin DM] lisinopriL [Zestril] 5 mg PO DAILY #90 tab 03/29/21 Allergies Allergy/AdvReac Type Severity Reaction Status Date / Time No Known Allergies Allergy Verified 10/05/22 00:46 Review of Systems ROS Statement: Those systems with pertinent positive or pertinent negative responses have been documented in the HPI. ROS Other: All systems not noted in ROS Statement are negative. EKG Findings - EKG Comments: EKG Findings:: EKG is sinus 94 DE 157 QRS 175 QTc 474 Past Medical History Past Medical History: Coronary Artery Disease (CAD), Heart Failure, COPD, Diabetes Mellitus, GI Bleed, Hyperlipidemia, Hypertension, Osteoarthritis (OA), Pneumonia, Pulmonary Embolus (PE), Renal Disease, Respiratory Disorder, Vascular Disorder Additional Past Medical History / Comment(s): hx. 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 History of Any Multi-Drug Resistant Organisms: MRSA Date of last positivie culture/infection: 03/15/17 MDRO Source:: genital Past Surgical History: Back Surgery, Cholecystectomy, Heart Catheterization, Heart Catheterization With Stent Additional Past Surgical History / Comment(s): EGD's, 07/26/15 IVC filter, BACK STIMULATORS x 2 -cervical and lumbar,FEMORAL BYPASS RT LEG X3, metal chips removed from bilateral eyes Past Anesthesia/Blood Transfusion Reactions: No Reported Reaction Additional Past Anesthesia/Blood Transfusion Reaction / Comment(s): Pt has received blood transfusions without reaction. Date of Last Stent Placement:: 1999 Past Psychological History: Anxiety, Depression Additional Psychological History / Comment(s): Pt lives with his spouse. He is O2 dependent at 3L/NC ATC. He has a cane and walker he uses if needed. Smoking Status: Current some day smoker Past Alcohol Use History: None Reported Additional Past Alcohol Use History / Comment(s): pt states he quit smoking 03/2016 Past Drug Use History: None Reported - Past Family History Father History Unknown: Yes Family Medical History: Myocardial Infarction ([place]) Additional Family Medical History / Comment(s): due to heart attack Mother History Unknown: Yes Family Medical History: Cancer Additional Family Medical History / Comment(s): LUNG CANCER General Exam General appearance: alert, in no apparent distress Head exam: Present: atraumatic, normocephalic, normal inspection Eye exam: Present: normal appearance, PERRL, EOMI. Absent: scleral icterus, conjunctival injection, periorbital swelling ENT exam: Present: normal exam, mucous membranes moist Neck exam: Present: normal inspection. Absent: tenderness, meningismus, lymphadenopathy Respiratory exam: Present: normal lung sounds bilaterally. Absent: respiratory distress, wheezes, rales, rhonchi, stridor Cardiovascular Exam: Present: regular rate, normal rhythm, normal heart sounds. Absent: systolic murmur, diastolic murmur, rubs, gallop, clicks GI/Abdominal exam: Present: soft, normal bowel sounds. Absent: distended, tenderness, guarding, rebound, rigid Extremities exam: Present: normal inspection, full ROM, normal capillary refill. Absent: tenderness, pedal edema, joint swelling, calf tenderness Back exam: Present: normal inspection Neurological exam: Present: alert, oriented X3, CN II-XII intact Psychiatric exam: Present: normal affect, normal mood Skin exam: Present: warm, dry, intact, normal color. Absent: rash Course Vital Signs 10/05/22 10/05/22 00:46 01:34 Temperature 98.6 F Pulse Rate 91 90 Respiratory 15 16 Rate Blood Pressure 101/66 85/49 O2 Sat by Pulse 100 98 Oximetry - Reevaluation(s) Reevaluation #1: 10/05/22 01:58 Rectal records reviewed Reevaluation #2: 10/05/22 01:58 A chest pain is persistent here in the ER Reevaluation #3: 10/05/22 01:58 Patient informed results and questions answered - Consultations Consultation #1: Spoke with admitting physician agrees to admit this patient Disposition Clinical Impression: Unstable angina, Dehydration, COPD (chronic obstructive pulmonary disease), Chest pain Disposition: ADMITTED IP TO THIS HOSP Condition: Fair Is patient prescribed a controlled substance at d/c from ED?: No Referrals: None,Stated [Primary Care Provider] - 1-2 days Time of Disposition: 02:00
--- NOTE | 2022-10-05 01:03 | XR ---
EXAMINATION TYPE: XR chest 1V portable DATE OF EXAM: 10/05/2022 COMPARISON: 05/28/2022 HISTORY: Chest pain TECHNIQUE: FINDINGS: There is coarse interstitial density in the lung johnson. There are emphysematous changes in the upper lobes. There is left-sided neural stimulators. No pleural effusion. Heart size is normal. No heart failure seen. IMPRESSION: Emphysema and pulmonary fibrosis. No heart failure. No change compared to old exam.
[2022-10-05 01:52] LABS: Basophils # (A) 0.1 k/uL (0-0.2); Basophils % (A) 0 %; Eosinophils # (A) 0.1 k/uL (0-0.7); Eosinophils % (A) 1 %; HCT 37.5 % (39.0-53.0); HGB 12.4 gm/dL (13.0-17.5); Hypochromasia Slight; Lymphocytes % (A) 6 %; MCH 31.2 pg (25.0-35.0); MCHC 33.1 g/dL (31.0-37.0); MCV 94.3 fL (80.0-100.0); Mean Platelet Volume 9.6; Monocytes # (A) 1.1 k/uL (0-1.0); Monocytes % (A) 6 %; Neutrophils # (A) 15.4 k/uL (1.3-7.7); Neutrophils % (A) 86 %; Platelet Count 176 k/uL (150-450); RBC 3.98 m/uL (4.30-5.90); RDW 13.9 % (11.5-15.5); WBC 17.9 k/uL (3.8-10.6)
[2022-10-05 01:54] LABS: Calcium 7.7 mg/dL (8.4-10.2)
[2022-10-05] MEDS ORDERED: MORPHINE SULFATE 4 MG/ML SYRINGE IVP STA (01:57)
[2022-10-05] MEDS ORDERED: MORPHINE SULFATE 4 MG/ML SYRINGE IVP PRN (01:57)
[2022-10-05] MEDS ORDERED: NALOXONE 0.4 MG/ML 1 ML VIAL IV PRN (01:59)
[2022-10-05] MEDS ORDERED: ONDANSETRON 4 MG/2 ML VIAL IVP PRN (01:59)
[2022-10-05] MEDS ORDERED: IPRATROPIUM-ALBUTEROL 3 ML NEB INHALATION STA (02:01)
[2022-10-05] MEDS: SODIUM CHLORIDE 0.9% 1,000 ML IV SCH ×3 (02:05→19:59)
[2022-10-05 02:08] LABS: Albumin 3.1 g/dL (3.5-5.0); Phosphorus 4.1 mg/dL (2.5-4.5); Potassium 5.4 mmol/L (3.5-5.1); Total Protein 5.6 g/dL (6.3-8.2)
[2022-10-05 02:09] LABS: Magnesium 1.7 mg/dL (1.6-2.3)
[2022-10-05 03:18] LABS: INR 0.9 (<1.2); Partial Thromboplastin Time 24.7 sec (22.0-30.0)
[2022-10-05] MEDS ORDERED: INSULIN REGULAR 100 UNIT/ML VIAL (IV) IV ONE (03:36)
[2022-10-05] MEDS ORDERED: INSULIN REGULAR 100 UNIT/ML VIAL (IM/SQ) SQ ONE (03:39)
[2022-10-05] MEDS: IPRATROPIUM-ALBUTEROL 3 ML NEB INHALATION SCH ×5 (04:13→20:27)
[2022-10-05 06:48] LABS: Glucose,Whole Blood 586 mg/dL (70-110)
[2022-10-05] MEDS ORDERED: DEXTROSE 50% SYRINGE 50 ML IVP PRN ×4 (08:08→08:09)
[2022-10-05 08:37] LABS: Glucose,Whole Blood 492 mg/dL (70-110)
[2022-10-05] MEDS: INSULIN DETEMIR (LEVEMIR) 100 UNIT/ML SYR SQ SCH ×2 (08:37→23:02)
[2022-10-05] MEDS: INSULIN ASPART (NovoLOG) 100 UNIT/ML VIAL SQ SCH ×3 (09:34→18:48)
[2022-10-05 10:49] LABS: Glucose,Whole Blood 465 mg/dL (70-110)
--- NOTE | 2022-10-05 10:53 | P.HPIM ---
History of Present Illness H&P Date: 10/05/22 History of present illness; patient is a 62-year-old gentleman with past medical history significant for coronary artery disease, insulin-dependent diabetes mellitus, hypertension, hyperlipidemia presented to the ER because of chest pain. Patient stated that he was all right yesterday evening when he went to play cards with his friends while he was sitting on the couch he started expressing chest pain. Chest pain was central in location, was pressure-like and was radiating to his shoulders, there was no aggravating or relieving factors associated with chest pain. Patient had no complain of any shortness of breath or palpitations. Because of this chest pain patient became concerned and came to the ER. Initial lab work in the ER showed white count of 17.9, hemog lobin of 12.4, sodium 1:30, potassium 5.4, BUN 16, creatinine of 1.1. Blood sugars were very elevated at 603. Initial EKG didn't show any acute ST changes. Patient was admitted for further evaluation and treatment REVIEW OF SYSTEMS: CONSTITUTIONAL: No fever, no malaise, no fatigue. HEENT: No recent visual problems or hearing problems. Denied any sore throat. CARDIOVASCULAR: No chest pain, orthopnea, PND, no palpitations, no syncope. PULMONARY: No shortness of breath, no cough, no hemoptysis. GASTROINTESTINAL: No diarrhea, no nausea, no vomiting, no abdominal pain. NEUROLOGICAL: No headaches, no weakness, no numbness. HEMATOLOGICAL: Denies any bleeding or petechiae. GENITOURINARY: Denies any burning micturition, frequency, or urgency. MUSCULOSKELETAL/RHEUMATOLOGICAL: Denies any joint pain, swelling, or any muscle pain. ENDOCRINE: Denies any polyuria or polydipsia. The rest of the 14-point review of systems is negative. PHYSICAL EXAMINATION: GENERAL: The patient is alert and oriented x3, not in any acute distress. Well developed, well nourished. HEENT: Pupils are round and equally reacting to light. EOMI. No scleral icterus. No conjunctival pallor. Normocephalic, atraumatic. No pharyngeal erythema. No thyromegaly. CARDIOVASCULAR: S1 and S2 present. No murmurs, rubs, or gallops. PULMONARY: Chest is clear to auscultation, no wheezing or crackles. ABDOMEN: Soft, nontender, nondistended, normoactive bowel sounds. No palpable organomegaly. MUSCULOSKELETAL: No joint swelling or deformity. EXTREMITIES: No cyanosis, clubbing, or pedal edema. NEUROLOGICAL: Gross neurological examination did not reveal any focal deficits. SKIN: No rashes. Assessment and plan Acute coronary syndrome Elevated troponins. History of coronary artery disease. Insulin-dependent diabetes mellitus on insulin pump. Hyperglycemia. Hyperkalemia Hyperlipidemia Hypertension Plan; Monitor vital signs. Monitor CBC. Continue to monitoring. Trend troponins. 2-D echo ordered. Consult cardiology. Patient uses insulin pump at home, at this time will put patient on Lantus 10 units twice a day and sliding scale insulin. We will DC insulin pump for now Continue IV fluids Resume home meds Past Medical History Past Medical History: Coronary Artery Disease (CAD), Heart Failure, COPD, Diabetes Mellitus, GI Bleed, Hyperlipidemia, Hypertension, Osteoarthritis (OA), Pneumonia, Pulmonary Embolus (PE), Renal Disease, Respiratory Disorder, Vascular Disorder Additional Past Medical History / Comment(s): hx. 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 History of Any Multi-Drug Resistant Organisms: MRSA Date of last positivie culture/infection: 03/15/17 MDRO Source:: genital Past Surgical History: Back Surgery, Cholecystectomy, Heart Catheterization, Heart Catheterization With Stent Additional Past Surgical History / Comment(s): EGD's, 07/26/15 IVC filter, BACK STIMULATORS x 2 -cervical and lumbar,FEMORAL BYPASS RT LEG X3, metal chips removed from bilateral eyes Past Anesthesia/Blood Transfusion Reactions: No Reported Reaction Additional Past Anesthesia/Blood Transfusion Reaction / Comment(s): Pt has received blood transfusions without reaction. Date of Last Stent Placement:: 1999 Past Psychological History: Anxiety, Depression Additional Psychological History / Comment(s): Pt lives with his spouse. He is O2 dependent at 3L/NC ATC. He has a cane and walker he uses if needed. Smoking Status: Current some day smoker Past Alcohol Use History: None Reported Additional Past Alcohol Use History / Comment(s): pt states he quit smoking 03/2016 Past Drug Use History: None Reported - Past Family History Father History Unknown: Yes Family Medical History: Myocardial Infarction ([place]) Additional Family Medical History / Comment(s): due to heart attack Mother History Unknown: Yes Family Medical History: Cancer Additional Family Medical History / Comment(s): LUNG CANCER Medications and Allergies Home Medications Medication Instructions Recorded Confirmed Type RX: Cholecalciferol [Vitamin D3 50 mcg PO DAILY 02/22/16 03/22/21 History (25 Mcg = 1000 Iu)] RX: INSULIN LISPRO (For Pump) 0.01 units SQ-PUMP CONTINUOUS 10/29/16 03/22/21 History [humaLOG (For Pump)] RX: Acetaminophen Tab [Tylenol] 650 mg PO Q4HR PRN tab 03/29/21 Rx RX: Aspirin EC [Ecotrin Low Dose] 81 mg PO DAILY #30 tab 03/29/21 Rx RX: Atorvastatin [Lipitor] 80 mg PO HS #90 tab 03/29/21 Rx RX: Clopidogrel [Plavix] 75 mg PO DAILY #90 tab 03/29/21 Rx RX: Fluconazole [Diflucan] 100 mg PO DAILY #5 tab 03/29/21 Rx RX: Furosemide [Lasix] 40 mg PO DAILY #90 tab 03/29/21 Rx RX: Insulin Detemir (Levemir) 30 unit SQ DAILY@0700 #1 vial 03/29/21 Rx [Levemir] RX: Metoprolol Succinate (ER) 25 mg PO BID #90 tab.er.24h 03/29/21 Rx [Toprol XL] RX: Nitroglycerin Sl Tabs 0.4 mg SUBLINGUAL Q5M PRN #20 tab 03/29/21 Rx [Nitrostat] RX: Spironolactone [Aldactone] 25 mg PO DAILY #90 tab 03/29/21 Rx RX: guaiFENesin-DM 100-10MG/5ML 10 ml PO Q8HR 5 Days #60 ml 03/29/21 Rx [Robitussin DM] RX: lisinopriL [Zestril] 5 mg PO DAILY #90 tab 03/29/21 Rx Allergies Allergy/AdvReac Type Severity Reaction Status Date / Time No Known Allergies Allergy Verified 10/05/22 00:46 Physical Exam Vitals: Vital Signs Temp Pulse Resp BP Pulse Ox 10/05/22 09:39 93 17 99/55 98 10/05/22 09:15 84 10/05/22 09:09 86 10/05/22 09:00 89 18 100/52 97 10/05/22 07:25 90 18 91/51 99 10/05/22 07:04 93 15 96/51 98 10/05/22 04:21 98 10/05/22 04:13 95 10/05/22 02:33 94 10/05/22 02:21 98 10/05/22 01:34 90 16 85/49 98 10/05/22 00:46 98.6 F 91 15 101/66 100 Intake and Output 10/04/22 10/05/22 10/05/22 22:59 06:59 14:59 Other: Weight 65.771 kg Results CBC & Chem 7: 10/05/22 01:31 10/05/22 01:31 Labs: Abnormal Lab Results - Last 24 Hours (Table) 10/05/22 10/05/22 10/05/22 Range/Units 01:31 01:31 06:46 WBC 17.9 H (3.8-10.6) k/uL RBC 3.98 L (4.30-5.90) m/uL Hgb 12.4 L (13.0-17.5) gm/dL Hct 37.5 L (39.0-53.0) % Neutrophils # 15.4 H (1.3-7.7) k/uL Monocytes # 1.1 H (0-1.0) k/uL Sodium 130 L (137-145) mmol/L Potassium 5.4 H (3.5-5.1) mmol/L Carbon Dioxide 16 L (22-30) mmol/L BUN 26 H (9-20) mg/dL Glucose 603 H* (74-99) mg/dL POC Glucose (mg/dL) 586 H (70-110) mg/dL Calcium 7.7 L (8.4-10.2) mg/dL Alkaline Phosphatase 137 H (38-126) U/L Troponin I (0.000-0.034) ng/mL Total Protein 5.6 L (6.3-8.2) g/dL Albumin 3.1 L (3.5-5.0) g/dL 10/05/22 10/05/22 Range/Units 07:41 08:35 WBC (3.8-10.6) k/uL RBC (4.30-5.90) m/uL Hgb (13.0-17.5) gm/dL Hct (39.0-53.0) % Neutrophils # (1.3-7.7) k/uL Monocytes # (0-1.0) k/uL Sodium (137-145) mmol/L Potassium (3.5-5.1) mmol/L Carbon Dioxide (22-30) mmol/L BUN (9-20) mg/dL Glucose (74-99) mg/dL POC Glucose (mg/dL) 492 H (70-110) mg/dL Calcium (8.4-10.2) mg/dL Alkaline Phosphatase (38-126) U/L Troponin I 0.160 H* (0.000-0.034) ng/mL Total Protein (6.3-8.2) g/dL Albumin (3.5-5.0) g/dL
[2022-10-05 12:44] LABS: Glucose,Whole Blood 366 mg/dL (70-110)
--- NOTE | 2022-10-05 16:10 | CA ---
Transthoracic Echo Report Name: Neptali Chilel Age: 62 Gender: M : 1960 Exam Date: 10/05/2022 09:32 Exam Location: [facility] Ht (in): 65 Wt (lb): 145 Ordering Physician: Slime Cortes DO Attending/Referring Phys: Physical Therapy Aides Teacher Paola Bonilla RDCS Procedure CPT: Indications: CP Cardiac Hx: Technical Quality: Contrast 1: Total Dose (mL): Contrast 2: Total Dose (mL): MEASUREMENTS (Male / Female) Normal Values 2D ECHO LV Diastolic Diameter PLAX 4.0 cm 4.2 - 5.9 / 3.9 - 5.3 cm LV Systolic Diameter PLAX 2.6 cm IVS Diastolic Thickness 1.1 cm 0.6 - 1.0 / 0.6 - 0.9 cm LVPW Diastolic Thickness 1.1 cm 0.6 - 1.0 / 0.6 - 0.9 cm LV Relative Wall Thickness 0.5 RV Internal Dim ED PLAX 3.1 cm LA Systolic Diameter LX 3.0 cm 3.0 - 4.0 / 2.7 - 3.8 cm M-MODE Aortic Root Diameter MM 2.9 cm LA Systolic Diameter MM 3.1 cm LA Ao Ratio MM 1.1 MV E Point Septal Separation 0.4 cm AV Cusp Separation MM 1.7 cm DOPPLER MV Area PHT 4.6 cm??? Mitral E Point Velocity 89.1 cm/s Mitral A Point Velocity 77.8 cm/s Mitral E to A Ratio 1.1 MV Deceleration Time 164.7 ms TR Peak Velocity 192.5 cm/s TR Peak Gradient 14.8 mmHg Right Ventricular Systolic Press 19.8 mmHg FINDINGS Left Ventricle Mildly increased septal wall thickness. Left ventricular ejection fraction is estimated at 55 %. Left ventricular cavity size normal. Right Ventricle Normal right ventricular size and function. Right ventricular systolic pressure within normal limits. Right Atrium Normal right atrial size. Left Atrium Normal left atrial size. Mitral Valve Structurally normal mitral valve. Mild mitral regurgitation. Aortic Valve Trileaflet aortic valve. Tricuspid Valve Structurally normal tricuspid valve. Mild tricuspid regurgitation. Pulmonic Valve Structurally normal pulmonic valve. Pericardium Normal pericardium. Aorta Normal size aortic root and proximal ascending aorta. CONCLUSIONS Normal LV function Mild mitral and tricuspid regurgitation Previewed by: Dr. Ciro Haque MD (Electronically Signed) Final Date: 05 October 2022 16:10
[2022-10-05 17:24] LABS: African American GFR (CKD) >90 (>60 ml/min/1.73 sqM); Anion Gap 4 mmol/L; Blood Urea Nitrogen 28 mg/dL (9-20); Carbon Dioxide 25 mmol/L (22-30); Chloride 104 mmol/L (98-107); Glucose 226 mg/dL (74-99); Non-African American GFR(CKD) 84 (>60 ml/min/1.73 sqM); Potassium 3.6 mmol/L (3.5-5.1); Sodium 133 mmol/L (137-145)
[2022-10-05 18:15] LABS: Glucose,Whole Blood 239 mg/dL (70-110)
[2022-10-05 22:26] LABS: Glucose,Whole Blood 212 mg/dL (70-110)
[2022-10-05] MEDS ORDERED: IPRATROPIUM-ALBUTEROL 3 ML NEB INHALATION PRN (23:28)
[2022-10-06 04:58] LABS: Basophils # (A) 0.1 k/uL (0-0.2); Basophils % (A) 0 %; Eosinophils # (A) 0.3 k/uL (0-0.7); Eosinophils % (A) 2 %; HCT 33.5 % (39.0-53.0); HGB 11.4 gm/dL (13.0-17.5); Lymphocytes # (A) 2.1 k/uL (1.0-4.8); Lymphocytes % (A) 16 %; MCH 30.8 pg (25.0-35.0); MCHC 34.2 g/dL (31.0-37.0); Mean Platelet Volume 8.3; Monocytes # (A) 0.5 k/uL (0-1.0); Monocytes % (A) 4 %; Neutrophils # (A) 9.9 k/uL (1.3-7.7); Neutrophils % (A) 75 %; Platelet Count 245 k/uL (150-450); RBC 3.72 m/uL (4.30-5.90); RDW 14.1 % (11.5-15.5); WBC 13.2 k/uL (3.8-10.6)
[2022-10-06 05:22] LABS: African American GFR (CKD) >90 (>60 ml/min/1.73 sqM); Anion Gap 5 mmol/L; Blood Urea Nitrogen 18 mg/dL (9-20); Calcium 7.9 mg/dL (8.4-10.2); Carbon Dioxide 23 mmol/L (22-30); Chloride 109 mmol/L (98-107); Glucose 118 mg/dL (74-99); Non-African American GFR(CKD) >90 (>60 ml/min/1.73 sqM); Potassium 3.7 mmol/L (3.5-5.1); Sodium 137 mmol/L (137-145)
[2022-10-06 06:19] LABS: Glucose,Whole Blood 87 mg/dL (70-110)
[2022-10-06] MEDS: IPRATROPIUM-ALBUTEROL 3 ML NEB INHALATION SCH ×4 (08:09→21:16)
[2022-10-06] MEDS: INSULIN ASPART (NovoLOG) 100 UNIT/ML VIAL SQ SCH ×4 (09:07→23:01)
[2022-10-06] MEDS: SODIUM CHLORIDE 0.9% 1,000 ML IV SCH ×2 (09:07→09:39)
[2022-10-06] MEDS ORDERED: HEPARIN SODIUM 1,000 UN/ML (10ML VL) IV PRN (09:09)
[2022-10-06] MEDS ORDERED: HEPARIN SODIUM 1,000 UN/ML (10ML VL) IV ONE (09:09)
[2022-10-06] MEDS ORDERED: NITROGLYCERIN SL TABS 0.4 MG TAB SUBLINGUAL PRN (09:12)
[2022-10-06] MEDS ORDERED: ATORVASTATIN 80 MG TAB PO STA (09:12)
[2022-10-06] MEDS ORDERED: ALPRAZolam 0.25 MG TAB PO PRN (09:12)
[2022-10-06] MEDS ORDERED: ASPIRIN 325 MG TAB PO STA (09:12)
[2022-10-06] MEDS ORDERED: ALPRAZolam 0.5 MG TAB PO PRN (09:12)
[2022-10-06] MEDS ORDERED: ASPIRIN 81 MG PO SCH (09:15)
[2022-10-06] MEDS ORDERED: HEPARIN SOD,PORK IN 0.45% NACL 25,000 UNIT in 0.45% NACL 1 250ML.BAG IV SCH (09:15)
[2022-10-06] MEDS: INSULIN DETEMIR (LEVEMIR) 100 UNIT/ML SYR SQ SCH ×2 (09:38→23:00)
[2022-10-06] MEDS: METOPROLOL SUCCINATE (ER) 25 MG TAB.ER.24H PO SCH (09:45)
--- NOTE | 2022-10-06 10:44 | P.PN ---
Subjective HISTORY OF PRESENTING ILLNESS This is a pleasant 62-year-old male past medical history significant for coronary artery disease status post PCI in 2006 and PCI to left circumflex and first OM branch 03/2021, hypertension, dyslipidemia, chronic nicotine dependence, COPD, pulmonary fibrosis, interstitial lung disease, type 2 diabetes .He follows in the office with Dr. Haque. We have been asked to see in consultation for chest pain. Patient presents to the emergency department with complaints of chest pressure that began yesterday. There was radiating across his chest. He also had radiation to his left arm, back and his bilateral shoulders. He had associated left arm numbness. Associated shortness of breath. He also noticed did so diarrhea for the past couple days that has resolved. He continues to have some mild chest pressure this morning. He denies any nausea, vomiting, leg tenderness, dizziness, syncope, near-syncope, palpitations. Initial troponin was negative, repeat 0.16, increased 1.[address] Haque he evaluated the patient yesterday and consultation note pending. DIAGNOSTICS * EKG reveals sinus rhythm, right bundle branch block, left fasicular block, ST depression in lateral leads. Similar EKG in 03/2021 * Echocardiogram revealed EF 55%, mild mitral regurgitation, mild tricuspid regurgitation * Last Cardiac Catheterization 03/2021 revealed left main free of significant stenosis, circumflex coronary artery is a focal 80-90% stenosis, 7880 percent stenosis involving OM branch, LAD shows mild to moderate stenosis, RCA is totally occluded. It was previously stented and there is extensive left-to-r ight collaterals going from the circumflex to the distal RCA. Patient underwent PCI to the left circumflex and first obtuse marginal branch of the Lcx. * Telemetry tracings indicate sinus mechanism * Chest xray emphysema and pulmonary fibrosis, no heart failure, no change compared to old exam * Laboratory reviewed, troponin negative, repeat 0.16, 1.8, sodium 137, potassium 3.7, BUN 18, serum 0.6, WBC 13.2, hemoglobin 11.4, platelet 245, proBNP 257 * Current home medications include atorvastatin 80 mg daily, lisinopril 5 mg daily, metoprolol succinate 25 mg daily, aspirin 80 mg daily, insulin pump PHYSICAL EXAMINATION Vitals reviewed CONSTITUTIONAL: No apparent distress. HEENT: Head is normocephalic. Pupils are equal, round. Sclerae anicteric. Mucous membranes of the mouth are moist. No JVD. No carotid bruit. CHEST EXAMINATION: Lungs are clear to auscultation. No chest wall tenderness is noted on palpation or with deep breathing. HEART EXAMINATION: Regular rate and rhythm. S1, S2 heard. No murmurs, gallops or rub. ABDOMEN: Soft, nontender. Positive bowel sounds. EXTREMITIES: 2+ peripheral pulses, no lower extremity edema and no calf tenderness. SKIN: warm, dry NEUROLOGIC EXAMINATION: Patient is awake, alert and oriented x3. ASSESSMENT NSTEMI Coronary artery disease status post PCI in 2006 and PCI to left circumflex and first OM branch 03/2021 Hypertension Dyslipidemia Chronic nicotine dependence COPD Pulmonary fibrosis Interstitial lung disease Type 2 diabetes with insulin pump PLAN Start IV heparin Aspirin, statin, beta frankie Lisinopril on hold for hypotension Plan for cardiac catheterization with Dr. Crawley today. I have discussed the risks, benefits and alternative therapies for the above- mentioned procedure and for both sedation/analgesia as well as necessary blood product administration, if indicated, as they pertain to this patient. The patient has indicated understanding and acceptance of the risks and procedures discussed. Questions have been answered appropriately and he is agreeable to move forward with the above-stated procedure. Further recommendations based on clinical course Thank you kindly for this consultation. Nurse practitioner note has been reviewed by physician. Signing provider agrees with the documented findings, assessment, and plan of care. Objective - Vital Signs Vital signs: Vital Signs Temp 97.9 F 10/06/22 08:00 Pulse 95 10/06/22 08:20 Resp 17 10/06/22 08:00 BP 108/66 10/06/22 08:00 Pulse Ox 94 L 10/06/22 08:09 FiO2 Intake & Output 10/05/22 10/06/22 10/06/22 18:59 06:59 18:59 Intake Total 342 Output Total 1000 1150 Balance -1000 -808 Weight 65.771 kg Intake: Oral 342 Output: Urine 1000 1150 Other: Voiding Method Toilet Urinal - Labs CBC & Chem 7: 10/06/22 04:43 10/06/22 04:43 Labs: Abnormal Lab Results - Last 24 Hours (Table) 10/05/22 10/05/22 10/05/22 Range/Units 01:31 10:46 12:42 WBC (3.8-10.6) k/uL RBC (4.30-5.90) m/uL Hgb (13.0-17.5) gm/dL Hct (39.0-53.0) % Neutrophils # (1.3-7.7) k/uL Sodium (137-145) mmol/L Chloride (98-107) mmol/L BUN (9-20) mg/dL Glucose (74-99) mg/dL POC Glucose (mg/dL) 465 H 366 H (70-110) mg/dL Hemoglobin A1c 8.7 H (0.0-6.0) % Calcium (8.4-10.2) mg/dL Troponin I (0.000-0.034) ng/mL 10/05/22 10/05/22 10/05/22 Range/Units 16:57 18:12 21:58 WBC (3.8-10.6) k/uL RBC (4.30-5.90) m/uL Hgb (13.0-17.5) gm/dL Hct (39.0-53.0) % Neutrophils # (1.3-7.7) k/uL Sodium 133 L (137-145) mmol/L Chloride (98-107) mmol/L BUN 28 H (9-20) mg/dL Glucose 226 H (74-99) mg/dL POC Glucose (mg/dL) 239 H 212 H (70-110) mg/dL Hemoglobin A1c (0.0-6.0) % Calcium 8.0 L (8.4-10.2) mg/dL Troponin I (0.000-0.034) ng/mL 10/06/22 10/06/22 10/06/22 Range/Units 04:43 04:43 04:43 WBC 13.2 H (3.8-10.6) k/uL RBC 3.72 L (4.30-5.90) m/uL Hgb 11.4 L (13.0-17.5) gm/dL Hct 33.5 L (39.0-53.0) % Neutrophils # 9.9 H (1.3-7.7) k/uL Sodium (137-145) mmol/L Chloride 109 H (98-107) mmol/L BUN (9-20) mg/dL Glucose 118 H (74-99) mg/dL POC Glucose (mg/dL) (70-110) mg/dL Hemoglobin A1c 8.6 H (0.0-6.0) % Calcium 7.9 L (8.4-10.2) mg/dL Troponin I (0.000-0.034) ng/mL 10/06/22 Range/Units 04:43 WBC (3.8-10.6) k/uL RBC (4.30-5.90) m/uL Hgb (13.0-17.5) gm/dL Hct (39.0-53.0) % Neutrophils # (1.3-7.7) k/uL Sodium (137-145) mmol/L Chloride (98-107) mmol/L BUN (9-20) mg/dL Glucose (74-99) mg/dL POC Glucose (mg/dL) (70-110) mg/dL Hemoglobin A1c (0.0-6.0) % Calcium (8.4-10.2) mg/dL Troponin I 1.800 H* (0.000-0.034) ng/mL
[2022-10-06 11:19] LABS: INR 1.1 (<1.2); Prothrombin Time 11.3 sec (9.0-12.0)
[2022-10-06 11:35] LABS: Partial Thromboplastin Time >200.0 sec (22.0-30.0)
[2022-10-06 11:55] LABS: Glucose,Whole Blood 241 mg/dL (70-110)
[2022-10-06] MEDS ORDERED: VERAPAMIL 2.5 MG/ML 2 ML AMP ONE (12:49)
[2022-10-06] MEDS ORDERED: HEPARIN SODIUM 1,000 UN/ML (10ML VL) ONE (12:49)
[2022-10-06] MEDS ORDERED: fentaNYL (PF) 50 MCG/ML 2 ML AMP IVP ONE (14:02)
[2022-10-06] MEDS ORDERED: MIDAZOLAM 2 MG/2 ML VIAL IVP ONE (14:02)
[2022-10-06] MEDS ORDERED: fentaNYL (PF) 50 MCG/ML 2 ML AMP ONE (14:03)
[2022-10-06] MEDS ORDERED: LIDOCAINE 1% INJ 10MG/ML (30 ML VIAL-PF) SQ ONE (14:04)
[2022-10-06] MEDS ORDERED: SODIUM CHLORIDE 0.9% 1,000 ML IV ONE (14:05)
[2022-10-06] MEDS ORDERED: HEPARIN SODIUM 1,000 UN/ML (10ML VL) IVP ONE (14:24)
[2022-10-06] MEDS ORDERED: IOPAMIDOL-370 100ML BTL INJ ONE ×2 (14:36→14:50)
[2022-10-06] MEDS ORDERED: CLOPIDOGREL 75 MG TAB ONE (14:52)
[2022-10-06] MEDS ORDERED: CLOPIDOGREL 75 MG TAB PO ONE (14:54)
[2022-10-06] MEDS ORDERED: ATROPINE SULFATE 0.1 MG/ML 10ML SYRINGE IV PRN (15:00)
[2022-10-06] MEDS ORDERED: ZOLPIDEM 5 MG TAB PO PRN (15:00)
[2022-10-06] MEDS ORDERED: MAG HYDROX/AL HYDROX/SIMETH 30 ML CUP PO PRN (15:00)
[2022-10-06] MEDS ORDERED: RX INFO: IV CONTRAST WAS GIVEN 1 EACH MISC MISCELLANE PRN (15:00)
[2022-10-06 16:26] LABS: Glucose,Whole Blood 357 mg/dL (70-110)
[2022-10-06 16:46] VITALS: RESP 18
--- NOTE | 2022-10-06 19:20 | P.PN ---
Subjective patient is a 62-year-old gentleman with past medical history significant for coronary artery disease, insulin-dependent diabetes mellitus, hypertension, hyperlipidemia presented to the ER because of chest pain. Patient stated that he was all right yesterday evening when he went to play cards with his friends while he was sitting on the couch he started expressing chest pain. Chest pain was central in location, was pressure-like and was radiating to his shoulders, there was no aggravating or relieving factors associated with chest pain. Jenna greene had no complain of any shortness of breath or palpitations. Because of this chest pain patient became concerned and came to the ER. Initial lab work in the ER showed white count of 17.9, hemoglobin of 12.4, sodium 1:30, potassium 5.4, BUN 16, creatinine of 1.1. Blood sugars were very elevated at 603. Initial EKG didn't show any acute ST changes. Patient was admitted for further evaluation and treatment 10/06/2022 Patient presents because of chest pain and he was started on heparin drip with plans to undergo cardiac cath today by cardiology team Patient himself was lying in bed comfortable this morning feeling only with little of pressure in his chest about 2/10 compared to 67/10 on admission No other complaint. Also patient was on insulin pump at home but not currently and he wants to resume his home upon discharge, however patient hemoglobin A1c is uncontrolled at 8.6%, I informed the patient with this fact he still wants to be on insulin pump and then recommended that he follows up with his board saw runner Dr. Mc in 1 week after discharge and he agrees When asked patient if he has any new weakness or numbness he told me he has chronic neuropathy. He is on Levemir 10 units twice a day and insulin sliding scale or the hospital, however it is going to be close monitored regarding his sugar Objective - Vital Signs Vital signs: Vital Signs Temp 97.9 F 10/06/22 08:00 Pulse 96 10/06/22 15:15 Resp 20 10/06/22 14:00 BP 127/61 10/06/22 15:15 Pulse Ox 94 L 10/06/22 08:09 FiO2 Intake & Output 10/05/22 10/06/22 10/06/22 18:59 06:59 18:59 Intake Total 442 Output Total 1000 1600 Balance -1000 -1158 Weight 65.771 kg Intake: IV 100 Oral 342 Output: Urine 1000 1600 Other: Voiding Method Toilet Toilet Urinal Urinal # Voids 1 - Exam GENERAL: The patient is alert and oriented x3, not in any acute distress. Well developed, well nourished. HEENT: Pupils are round and equally reacting to light. EOMI. No scleral icterus. No conjunctival pallor. Normocephalic, atraumatic. No pharyngeal erythema. No thyromegaly. CARDIOVASCULAR: S1 and S2 present. No murmurs, rubs, or gallops. PULMONARY: Chest is clear to auscultation, no wheezing or crackles. ABDOMEN: Soft, nontender, nondistended, normoactive bowel sounds. No palpable organomegaly. MUSCULOSKELETAL: No joint swelling or deformity. EXTREMITIES: No cyanosis, clubbing, or pedal edema. NEUROLOGICAL: Gross neurological examination did not reveal any focal deficits. SKIN: No rashes. no petechiae. - Labs CBC & Chem 7: 10/06/22 04:43 10/06/22 04:43 Labs: Abnormal Lab Results - Last 24 Hours (Table) 10/05/22 10/05/22 10/05/22 Range/Units 16:57 18:12 21:58 WBC (3.8-10.6) k/uL RBC (4.30-5.90) m/uL Hgb (13.0-17.5) gm/dL Hct (39.0-53.0) % Neutrophils # (1.3-7.7) k/uL APTT (22.0-30.0) sec Sodium 133 L (137-145) mmol/L Chloride (98-107) mmol/L BUN 28 H (9-20) mg/dL Glucose 226 H (74-99) mg/dL POC Glucose (mg/dL) 239 H 212 H (70-110) mg/dL Hemoglobin A1c (0.0-6.0) % Calcium 8.0 L (8.4-10.2) mg/dL Troponin I (0.000-0.034) ng/mL 10/06/22 10/06/22 10/06/22 Range/Units 04:43 04:43 04:43 WBC 13.2 H (3.8-10.6) k/uL RBC 3.72 L (4.30-5.90) m/uL Hgb 11.4 L (13.0-17.5) gm/dL Hct 33.5 L (39.0-53.0) % Neutrophils # 9.9 H (1.3-7.7) k/uL APTT (22.0-30.0) sec Sodium (137-145) mmol/L Chloride 109 H (98-107) mmol/L BUN (9-20) mg/dL Glucose 118 H (74-99) mg/dL POC Glucose (mg/dL) (70-110) mg/dL Hemoglobin A1c 8.6 H (0.0-6.0) % Calcium 7.9 L (8.4-10.2) mg/dL Troponin I (0.000-0.034) ng/mL 10/06/22 10/06/22 10/06/22 Range/Units 04:43 09:54 11:50 WBC (3.8-10.6) k/uL RBC (4.30-5.90) m/uL Hgb (13.0-17.5) gm/dL Hct (39.0-53.0) % Neutrophils # (1.3-7.7) k/uL APTT >200.0 H* (22.0-30.0) sec Sodium (137-145) mmol/L Chloride (98-107) mmol/L BUN (9-20) mg/dL Glucose (74-99) mg/dL POC Glucose (mg/dL) 241 H (70-110) mg/dL Hemoglobin A1c (0.0-6.0) % Calcium (8.4-10.2) mg/dL Troponin I 1.800 H* (0.000-0.034) ng/mL Assessment and Plan Assessment: Elevated troponins. Secondary to Acute coronary syndrome, with the plan for cardiac cath today History of coronary artery disease. Insulin-dependent diabetes mellitus on insulin pump. Uncontrolled with hyperglycemia, patient is counseled extensively Hyperglycemia. Hyperkalemia Hyperlipidemia Hypertension Plan: Cardiology on the case with plan for cardiac cath today Continue with aspirin and Plavix Stop heparin drip and start subcu heparin Continue with Levemir 10 units twice a day and insulin sliding scale Labs and medication were reviewed.. Continue same treatment. Continue with symptomatic treatment. Resume home medication. Monitor lytes and vitals. DVT and GI prophylaxis. Further recommendations as per clinical course of the patient DVT prophylaxis: Subcutaneous heparin GI Prophylaxis: Ppi Prognosis is guarded
--- NOTE | 2022-10-06 19:34 | P.PCN ---
Date of Procedure: 10/06/22 Operative Findings: CARDIAC CATHETERIZATION AND PERCUTANEOUS CORONARY INTERVENTION PERFORMING PHYSICIAN: Baldo Crawley MD, [facility] PROCEDURE PERFORMED: 1. Selective right and left coronary angiogram 2. Successful stenting of the first OM branch of the LCx using 2.5 x 12 mm Xience BEATRIZ which with an excellent angiographic results 3. Selective left common femoral artery angiogram and ultrasound guidance of the left common femoral INDICATION: Acute coronary syndrome COMPLICATION: None APPROACH: Left common femoral Arter LEVEL OF SEDATION: Moderate with the sedation time off 46 minutes PROCEDURE DESCRIPTION: After obtaining an informed consent the patient was brought to the cardiac catheterization laboratory technician. The left common femoral artery was cannulated using micropuncture technique, the micropuncture wire passed easily then I placed 6-Yoruba sheath the left common femoral artery. After that I did selective right and left coronary angiogram using JR4 and JL4 catheters. After that I did intervene on the LCx. The procedure was completed without any complication SELECTIVE CORONARY ANGIOGRAM: The right coronary artery: Large caliber vessel and a dominant vessel. The RCA is chronically occluded and known to be chronically occluded from before. Left main: Is angiographically normal. Bifurcates into an LCx and LAD The left circumflex: Large caliber vessel and nondominant vessel. The LCx proximally gives rises into a medium size OM which is a stented and the stent appeared to be occluded. The circumflex continue after that in the AV groove as a medium caliber vessel. The left anterior descending artery: Large caliber vessel. The proximal LAD appeared to have mild disease only. The mid LAD has intermediate lesion appears to be in the range of 30-40%. The LAD distally has intermediate lesion as well as appears to be in the range of 50- 60%. The LAD gives rises into a diagonal branch which appears to have mild disease only. PCI OF THE LCx: Anticoagulation was initiated using heparin with continuous ACT monitoring. Subsequently I did engage the left main using JL4 guiding catheter. I was able to cross the acute total occlusion of OM1 using a whisper wire. Balloon angioplasty patient was performed using 1.5 mm balloon was subsequently 2.0 mm balloon. Subsequently I did deployed 2.5 x 12 mm stent where the stent was positioned under fluoroscopy guidance and deployed under its nominal pressure. The following angiogram showed good angiographic results and the procedure was completed without any complication CONCLUSION: 1. Acute non-ST deviation myocardial infarction 2. Acute total occlusion of OM1. I performed successful stenting of OM1 2. Intermediate disease involving the left anterior descending artery 3. Chronic total occlusion of the RCA which is a known finding from before POSTPROCEDURE MANAGEMENT: #1 dual antiplatelet therapy aspirin and Plavix for 12 months #2 aggressive cholesterol control #3 follow-up with the patient
--- NOTE | 2022-10-06 20:06 | CONS ---
CONSULTATION CHIEF COMPLAINT: Chest pain. HISTORY OF PRESENT ILLNESS: This is a 62-year-old gentleman with history of hypertension, dyslipidemia, coronary artery disease, status post angioplasty of circumflex coronary artery, who was at a friend's place and developed an episode of chest discomfort and shortness of breath and came to the emergency room. I evaluated him in the ER and ordered an echo on him. My dictation from yesterday is missing, hence I am redictating it. His EKG showed sinus rhythm with right bundle-branch block. His troponins the first 3 sets were around 0.01, 0.01, and 0.1 and the fourth set came back elevated at 1.5. He is currently on aspirin, Xanax, Lipitor, intravenous heparin, and Toprol-XL. Given the chest discomfort and the elevated troponins, the patient is advised to undergo cardiac catheterization for further evaluation and had been explained of risks, benefits, and alternatives. PAST MEDICAL HISTORY: Significant for coronary artery disease and status post cardiac catheterization in March 2021 with catheterization and angioplasty of the circumflex coronary artery with a chronically occluded right coronary artery. PAST MEDICAL HISTORY: Significant for coronary artery disease status post angioplasty, hypertension, diabetes, and dyslipidemia. MEDICATIONS: 1. Aspirin. 2. Zestril. 3. Lipitor. 4. Toprol-XL. ALLERGIES: No known drug allergies. FAMILY HISTORY: Negative for premature coronary artery disease. SOCIAL HISTORY: Significant for smoking. There is no history of EtOH abuse or drug abuse. REVIEW OF SYSTEMS: HEENT: Unremarkable. CARDIAC: As described above. RESPIRATORY: As described above. GI: Negative. GENITOURINARY: Negative. ALLERGY/IMMUNOLOGY: Negative. SKIN: Negative. MUSCULOSKELETAL: Negative. ENDOCRINE: Negative. DERM: Negative. CONSTITUTIONAL: Negative. ONCOLOGICAL: Negative. WAFER FAB TECHNICIAN: Negative. PHYSICAL EXAMINATION: GENERAL: The patient is comfortable at rest. VITAL SIGNS: Stable. NECK: There is no jugular venous distention. Carotid upstroke is normal. There is no bruit. CHEST: Reveals good air entry bilaterally. HEART: Reveals first and second heart sounds. No gallop, no murmur. ABDOMEN: Soft. EXTREMITIES: Did not reveal any edema. Peripheral pulses are felt. LABS: The initial labs on him showed that the blood sugar is extremely elevated at 586, hemoglobin is 12.4, and the troponin was 0.01. EKG showed sinus rhythm with right- bundle branch block. ASSESSMENT: 1. Unstable angina. 2. Insulin-dependent diabetes with extremely poorly controlled blood sugars. PLAN: I will treat the patient with intravenous heparin. The patient needs cardiac catheterization. I will wait until blood sugars are better controlled. If patient has persistent chest pain, we may have to go ahead and do the catheterization. YUNI / MARTINA: [id number] /
[2022-10-06 20:14] LABS: Glucose,Whole Blood 275 mg/dL (70-110)
[2022-10-06] MEDS ORDERED: ATORVASTATIN 80 MG TAB PO SCH (21:00)
[2022-10-06] MEDS: HEPARIN SODIUM,PORCINE/PF 5,000 UNIT/0.5 ML SYRINGE SQ SCH (23:01)
[2022-10-07 01:42] LABS: Glucose,Whole Blood 52 mg/dL (70-110)
[2022-10-07 01:59] LABS: Glucose,Whole Blood 47 mg/dL (70-110)
[2022-10-07 02:14] LABS: Glucose,Whole Blood 47 mg/dL (70-110)
[2022-10-07 02:29] LABS: Glucose,Whole Blood 53 mg/dL (70-110)
[2022-10-07 02:57] LABS: Glucose,Whole Blood 126 mg/dL (70-110)
[2022-10-07 05:56] LABS: Glucose,Whole Blood 253 mg/dL (70-110)
[2022-10-07] MEDS: INSULIN ASPART (NovoLOG) 100 UNIT/ML VIAL SQ SCH ×2 (06:46→12:08)
[2022-10-07] MEDS ORDERED: HEPARIN SODIUM,PORCINE 10,000 UNIT in SODIUM CHLORIDE 0.9% 1,000 ML IRRIGATION PRN (07:00)
[2022-10-07] MEDS ORDERED: HEPARIN SODIUM,PORCINE 2,500 UNIT in SODIUM CHLORIDE 0.9% 250 ML IRRIGATION PRN (07:00)
[2022-10-07] MEDS: IPRATROPIUM-ALBUTEROL 3 ML NEB INHALATION SCH ×3 (08:16→15:36)
[2022-10-07] MEDS ORDERED: CLOPIDOGREL 75 MG TAB PO SCH (09:00)
[2022-10-07] MEDS ORDERED: lisinopriL 5 MG TAB PO SCH (09:00)
[2022-10-07] MEDS ORDERED: EZETIMIBE 10 MG TAB PO SCH (09:00)
[2022-10-07] MEDS ORDERED: ASPIRIN 81 MG PO SCH (09:15)
[2022-10-07 09:22] LABS: African American GFR (CKD) >90 (>60 ml/min/1.73 sqM); Anion Gap 3 mmol/L; Blood Urea Nitrogen 11 mg/dL (9-20); Calcium 8.4 mg/dL (8.4-10.2); Carbon Dioxide 31 mmol/L (22-30); Chloride 106 mmol/L (98-107); Glucose 144 mg/dL (74-99); Non-African American GFR(CKD) >90 (>60 ml/min/1.73 sqM); Potassium 4.3 mmol/L (3.5-5.1); Sodium 140 mmol/L (137-145)
[2022-10-07] MEDS: HEPARIN SODIUM,PORCINE/PF 5,000 UNIT/0.5 ML SYRINGE SQ SCH (09:22)
[2022-10-07 09:23] LABS: Basophils % (A) 0 %; Eosinophils # (A) 0.2 k/uL (0-0.7); Eosinophils % (A) 2 %; HCT 37.5 % (39.0-53.0); HGB 12.9 gm/dL (13.0-17.5); Lymphocytes # (A) 1.3 k/uL (1.0-4.8); Lymphocytes % (A) 12 %; MCH 31.6 pg (25.0-35.0); MCHC 34.3 g/dL (31.0-37.0); MCV 91.9 fL (80.0-100.0); Mean Platelet Volume 8.5; Monocytes # (A) 0.5 k/uL (0-1.0); Monocytes % (A) 4 %; Neutrophils # (A) 8.3 k/uL (1.3-7.7); Neutrophils % (A) 78 %; Platelet Count 254 k/uL (150-450); RBC 4.08 m/uL (4.30-5.90); RDW 14.2 % (11.5-15.5); WBC 10.6 k/uL (3.8-10.6)
[2022-10-07] MEDS: INSULIN DETEMIR (LEVEMIR) 100 UNIT/ML SYR SQ SCH ×2 (09:23→09:24)
[2022-10-07] MEDS: METOPROLOL SUCCINATE (ER) 25 MG TAB.ER.24H PO SCH (09:23)
[2022-10-07 09:25] LABS: INR 0.9 (<1.2); Prothrombin Time 9.5 sec (9.0-12.0)
[2022-10-07 11:23] VITALS: TEMP 97.1
[2022-10-07 11:55] LABS: Glucose,Whole Blood 70 mg/dL (70-110)
--- NOTE | 2022-10-07 12:02 | P.PN ---
Subjective HISTORY OF PRESENTING ILLNESS This is a pleasant 62-year-old male past medical history significant for coronary artery disease status post PCI in 2006 and PCI to left circumflex and first OM branch 03/2021, hypertension, dyslipidemia, chronic nicotine dependence, COPD, pulmonary fibrosis, interstitial lung disease, type 2 diabetes .He follows in the office with Dr. Haque. We have been asked to see in consultation for chest pain. Patient presents to the emergency department with complaints of chest pressure that began yesterday. There was radiating across his chest. He also had radiation to his left arm, back and his bilateral shoulders. He had associated left arm numbness. Associated shortness of breath. He was diagnosed with NSTEMI He underwent cardiac catheterization with Dr. Crawley/03/2022 which revealed acute occlusion of OM1, perform successful stenting of OM1. Intermediate disease involving the LAD. Chronic total occlusion of the RCA. Patient seen and examined at bedside, no acute distress. Denies any chest pain or shortness of breath. His vital signs are stable. He is currently maintained on aspirin and Plavix. Echocardiogram revealed EF 55%, mild mitral regurgitation, mild tricuspid regurgitation PHYSICAL EXAMINATION Vitals reviewed CONSTITUTIONAL: No apparent distress. HEENT: Head is normocephalic. Neck Supple. No JVD. CHEST EXAMINATION: Lungs are clear to auscultation. No chest wall tenderness is noted on palpation or with deep breathing. HEART EXAMINATION: Regular rate and rhythm. S1, S2 heard. No murmurs, gallops or rub. ABDOMEN: Soft, nontender. Positive bowel sounds. EXTREMITIES: 2+ peripheral pulses, no lower extremity edema and no calf tenderness. SKIN: Left groin site clean dry intact no hematoma NEUROLOGIC EXAMINATION: Patient is awake, alert and oriented x3. ASSESSMENT NSTEMI s/p PCI to OM1 on 10/07 Coronary artery disease status post PCI in 2006 and PCI to left circumflex and first OM branch 03/2021, chronic total occlusion of the RCA, intermittent disease involving the LAD from cardiac cath on 10/07 Hypertension Dyslipidemia Chronic nicotine dependence COPD Pulmonary fibrosis Interstitial lung disease Type 2 diabetes with insulin pump PLAN From cardiology perspective, patient stable to be discharged home. Continue dual antiplatelet therapy with aspirin and Plavix for at least 12 months Continue atorvastatin 80mg daily, metoprolol succinate, lisinopril Add Zetia 10mg daily From cardiology was effective, patient stable to discharge home. Follow up with Dr. Haque in one week Nurse practitioner note has been reviewed by physician. Signing provider agrees with the documented findings, assessment, and plan of care. Objective - Vital Signs Vital signs: Vital Signs Temp 97.1 F L 10/07/22 07:00 Pulse 90 10/07/22 11:41 Resp 18 10/07/22 11:41 BP 125/72 10/07/22 07:00 Pulse Ox 94 L 10/07/22 11:29 FiO2 Intake & Output 10/06/22 10/07/22 10/07/22 18:59 06:59 18:59 Intake Total 922 240 Output Total 3150 1550 Balance -2228 -1550 240 Intake: IV 100 Oral 822 240 Output: Urine 3150 1550 Other: Voiding Method Toilet Toilet Toilet Urinal Urinal Urinal # Voids 1 - Labs CBC & Chem 7: 10/07/22 08:36 10/07/22 08:36 Labs: Abnormal Lab Results - Last 24 Hours (Table) 10/06/22 10/06/22 10/06/22 Range/Units 16:23 16:55 20:12 RBC (4.30-5.90) m/uL Hgb (13.0-17.5) gm/dL Hct (39.0-53.0) % Neutrophils # (1.3-7.7) k/uL APTT 66.2 H (22.0-30.0) sec Carbon Dioxide (22-30) mmol/L Glucose (74-99) mg/dL POC Glucose (mg/dL) 357 H 275 H (70-110) mg/dL 10/07/22 10/07/22 10/07/22 Range/Units 01:40 01:57 02:12 RBC (4.30-5.90) m/uL Hgb (13.0-17.5) gm/dL Hct (39.0-53.0) % Neutrophils # (1.3-7.7) k/uL APTT (22.0-30.0) sec Carbon Dioxide (22-30) mmol/L Glucose (74-99) mg/dL POC Glucose (mg/dL) 52 L 47 L 47 L (70-110) mg/dL 10/07/22 10/07/22 10/07/22 Range/Units 02:27 02:54 05:54 RBC (4.30-5.90) m/uL Hgb (13.0-17.5) gm/dL Hct (39.0-53.0) % Neutrophils # (1.3-7.7) k/uL APTT (22.0-30.0) sec Carbon Dioxide (22-30) mmol/L Glucose (74-99) mg/dL POC Glucose (mg/dL) 53 L 126 H 253 H (70-110) mg/dL 10/07/22 10/07/22 Range/Units 08:36 08:36 RBC 4.08 L (4.30-5.90) m/uL Hgb 12.9 L (13.0-17.5) gm/dL Hct 37.5 L (39.0-53.0) % Neutrophils # 8.3 H (1.3-7.7) k/uL APTT (22.0-30.0) sec Carbon Dioxide 31 H (22-30) mmol/L Glucose 144 H (74-99) mg/dL POC Glucose (mg/dL) (70-110) mg/dL
[2022-10-07 12:36] VITALS: BMI 23.3
[2022-10-07 15:42] VITALS: BP 138/65
[2022-10-07 15:46] VITALS: PULSE 90
--- NOTE | 2022-10-07 20:06 | P.DS ---
Providers Date of admission: 10/07/22 09:42 Attending physician: Kelsie Ovalle Consults: 10/05/22 01:59 Consult Physician Routine Consulting Provider: Anne Miguel Consult Reason/Comments: cp Do you want consulting provider notified?: Yes 10/06/22 15:00 Consult Physician Routine Consulting Provider: Cardiology Franco Consult Reason/Comments: Post Interventional Patient Do you want consulting provider notified?: Already Contacted Primary care physician: Stated None Hospital Course: Diagnoses: Elevated troponins. Secondary to Acute coronary syndrome, status post cardiac cath and PCI to OM 1 and 10/06, currently stable Hypotension, present on admission improved. Insulin-dependent diabetes mellitus on insulin pump.with hyperglycemia, patient is counseled extensivel, present on admission. Patient wanted to go back to insulin pump upon discharge History of coronary artery disease. Hyperkalemia Hyperlipidemia Hypertension Chronic hypoxic respiratory failure related to pulmonary fibrosis/interstitial lung disease Hospital course: patient is a 62-year-old gentleman with past medical history significant for coronary artery disease, insulin-dependent diabetes mellitus, hypertension, hyperlipidemia presented to the ER because of chest pain. patient did relatively by target protection specialist and underwent a cardiac cath patient found critical lesion in the OM 1 branch status post stenting. After procedure patient chest pain resolved, no dyspnea no other complaints. Today he is fully awake and oriented and states his back to baseline. He is aware of dual antiplatelet therapy, continued on his home dose of aspirin 81 mg and Plavix added and importance of and dressed of treatment is explained for him and he verbalized understanding and acceptance. After the cardiac cath his hypotension present on admission improved also received IV hydration. Patient still causes uncontrolled and his hemoglobin A1c is 8.7. Patient was extremely keen to go back on insulin pump and follow-up with his bpm analyst Dr. Mc within one week as recommended for him. Patient denies any other symptoms, no abdominal pain or vomiting or diarrhea, no urinary complaints, headache or dizziness or weakness. Patient was cleared for discharge by target protection specialist, prescription was sent to the pharmacy by cardiology team Problems and management plan were discussed with the patient and he verbalized understanding and acceptance Patient was found stable and can be discharged home in guarded prognosis however he needs follow-up as an outpatient. Patient was instructed to follow up with PCP within one week and patient agrees Patient was instructed to follow up with his target protection specialist Dr. Haque in one week and he says that he has an appointment coming down for him The patient was instructed to follow up with Dr. Mc bpm analyst and he states he has appointment on 10/09. , Patient states that he has oxygen at home. Currently he is on 3 L/m which is his home dose Patient also states that he has a glucometer at home Also patient states that he has appointment with Dr. Tristan coming up soon Physical exam Gen: patient is a AAOx3, no distress CVS: S1-S2, RRR, no murmur Lungs: B/L CTA, no wheezing Abdomen: soft, no distention, no tenderness, positive bowel sounds Extremity: no leg edema or induration Time spent more than 35 minutes Patient Condition at Discharge: Fair Plan - Discharge Summary Discharge Rx Participant: No New Discharge Prescriptions: New Nitroglycerin Sl Tabs [Nitrostat] 0.4 mg SUBLINGUAL Q5M PRN #25 tab PRN Reason: Chest Pain Clopidogrel [Plavix] 75 mg PO DAILY #90 tab Ezetimibe [Zetia] 10 mg PO DAILY #90 tab Continue INSULIN LISPRO (For Pump) [humaLOG (For Pump)] 0.01 units SQ-PUMP CONTINUOUS lisinopriL [Zestril] 5 mg PO DAILY #90 tab Metoprolol Succinate (ER) [Toprol XL] 25 mg PO DAILY Aspirin EC [Ecotrin Low Dose] 81 mg PO DAILY #30 tab Atorvastatin [Lipitor] 80 mg PO HS #90 tab Cholecalciferol [Vitamin D3 (125 Mcg = 5000 Iu)] 125 mcg PO DAILY Discontinued Multivitamins, Thera [Multivitamin (formulary)] 1 tab PO DAILY Discharge Medication List INSULIN LISPRO (For Pump) [humaLOG (For Pump)] 0.01 units SQ-PUMP CONTINUOUS 10/29/16 [History] Aspirin EC [Ecotrin Low Dose] 81 mg PO DAILY #30 tab 03/29/21 [Rx] Atorvastatin [Lipitor] 80 mg PO HS #90 tab 03/29/21 [Rx] lisinopriL [Zestril] 5 mg PO DAILY #90 tab 03/29/21 [Rx] Cholecalciferol [Vitamin D3 (125 Mcg = 5000 Iu)] 125 mcg PO DAILY 10/05/22 [History] Metoprolol Succinate (ER) [Toprol XL] 25 mg PO DAILY 10/05/22 [History] Clopidogrel [Plavix] 75 mg PO DAILY #90 tab 10/07/22 [Rx] Ezetimibe [Zetia] 10 mg PO DAILY #90 tab 10/07/22 [Rx] Nitroglycerin Sl Tabs [Nitrostat] 0.4 mg SUBLINGUAL Q5M PRN #25 tab 10/07/22 [Rx] Follow up Appointment(s)/Referral(s): None,Stated [Primary Care Provider] - 1-2 days Nena Mc MD [STAFF PHYSICIAN] - 1 Week Ciro Haque MD [STAFF PHYSICIAN] - 10/16/22 8:30 am Patient Instructions/Handouts: *Surgery [facility] - After Heart Catheterization - Poultice Machine Operator Instructions Activity/Diet/Wound Care/Special Instructions: Cardiology Instructions After Cardiac Catheterization with Stent Placement: 1. Aspirin as anti-platelet therapy - Aspirin lessens the chance of heart attack and stroke. It helps prevent blood clots from forming, allowing the blood to flow more easily. Each day, you will take one 81 mg (non-enteric coated) tablet daily. You will be taking aspirin as a lifelong medication. Do not stop unless instructed by your doctor. 2. Anti-platelet Therapy. -In addition to aspirin, you will take ONE of the following anti-platelet medications daily. This will help prevent a clot from forming in your stent: Plavix (clopidogrel) -You will need to take your anti-platelet medicine every day for 12 months -Please consult your heart doctor before you stop this medicine. -They may want you to continue for a longer period of time. 3. Statins -A statin medication lowers cholesterol levels in the blood. This helps slow the progression of heart disease. - Please take your statin medication as prescribed by your doctor. -You may be taking one of the following statins: Lipitor (atorvastatin) Other Medications: -ACEI/ Angiotensin II Receptor Alexandra- (Your medications: Lisinopril) can help your heart work better after a heart attack and decrease the amount of damage from a heart attack -Beta alexandra (Your medication: Metoprolol) . Is a medication that protects your heart from stress and can prevent future heart attacks. It can slow your heart rate. It can take weeks for your body to get used to a beta alexandra. The dose may need to be changed a few times as your body adjusts -Zetia - helps lower cholesterol and LDL levels in the blood Do not stop taking these medicines without talking to your doctor. -Take all other medicines as directed by your doctor. Do not take any extra aspirin or ibuprofen. They can increase your risk of bleeding. Many [id number]-swbpogo drugs contain aspirin. If you are unsure about what the drug contains, check with your pharmacist before taking it. -For mild discomfort, you may take plain Tylenol (acetaminophen). Follow dose directions, but do not take more than 4,000 mg of acetaminophen in 24 hours. Contact your doctor right away or go to the nearest hospital Emergency Room if you have: -Severe angina or chest pain. (This may be a sign of a problem with your stent.) -Excessive bruising, blood in urine/stool or black tarry stools. Healthy LifeStyle It is important to keep a heart healthy lifestyle. This can improve your long- term health and decrease your risk for heart attacks. -Quitting tobacco: the most important thing you can do to protect your health. -Managing your blood cholesterol, blood pressure, weight, and stress. -The importance of regular exercise. -Heart Healthy Diet: Include more plants in your diet. Eat lots of fresh vegetables and fresh fruits. Eat good fats: plant based oils, avocado, nuts, beans, legumes. Eat more seafood. Limit Meat. Switch to whole grains. -Avoid fried foods and animal fats and processed meats Follow up with [facility], Shakira Coker [phone] heart healthy diet , low carbohydrate diet 1800 k jolanta per day activity is restricted till you see your doctor we recommend to check your glucose 4 times a day before each meal and at bed time , keep the results in a log book and bring it to your doctor upon your appointment date if your glucose is less than 70 or more than 400 then call 911 and come to emergency room We recommend you call your health insurance provider notified a nearby PCP, please call to make an appointment within 1 week Discharge Disposition: HOME SELF-CARE
[2022-10-07] MEDS ORDERED: ATORVASTATIN 80 MG TAB PO SCH (21:00)
--- NOTE | 2022-10-10 07:33 | CDI ---
Documentation Clarification Form Date: 10/10/22 From: Nicol Baldwin Admit Date: 10/07/2022 09:42:00 AM Patient Name: Neptali Chilel Visit Number: [id number] Discharge Date: 10/07/2022 04:35:00 PM ATTENTION: The Clinical Documentation Specialists (CDI) and [facility] Coding Staff appreciate your assistance in clarifying documentation. Please respond to the clarification below the line at the bottom and electronically sign. The CDI & [facility] Coding staff will review the response and follow-up if needed. Please note: Queries are made part of the Legal Health Record. If you have any questions, please contact the author of this message via ITS. Dr. Tolliver E Anita, Conflicting documentation has been found in the medical record. As attending physician, please provide clarification. Per your DS "Elevated troponins secondary to Acute coronary syndrome, status post cardiac cath and PCI to OM 1 and 10/06, currently stable. Per Heart Cath report & PNs "Acute non-ST deviation myocardial infarction", NSTEMI. History/Risk Factors: History of coronary artery disease, Insulin-dependent diabetes mellitus on insulin pump, Hyperglycemia, Hyperkalemia, Hyperlipidemia, Hypertension Clinical Indicators: 10/05 & 10/06 Troponin I - 0.160, 1.800 Treatment: Stenting of OM1, dual antiplatelet therapy (Aspirin & Plavix) Please clarify which diagnosis is most appropriate: [ ] NSTEMI [ ] Acute coronary syndrome [ ] Other (please specify) [ ] Unable to determine NSTEMI MTDD
== END 2022-10-07 16:35 | disposition home or self-care (01) | DRG 247 ==
LOC: EC 00:33 → 6NMEDSUR 02:00 → 3SCARD 12:38 → OBSVTOIN 10-07 09:42
PROVIDERS: ADMIT Hospitalist; ATTEND Hospitalist
PROC: B41G1ZZ Fluoroscopy of Left Lower Extremity Arteries using Low Osmolar Contrast (ICD-10-PCS; principal; 2022-10-06 16:45)
PROC: B2111ZZ Fluoroscopy of Multiple Coronary Arteries using Low Osmolar Contrast (ICD-10-PCS; principal; 2022-10-06 16:45)
PROC: 4A023N7 Measurement of Cardiac Sampling and Pressure, Left Heart, Percutaneous Approach (ICD-10-PCS; principal; 2022-10-06 16:45)
PROC: 027034Z Dilation of Coronary Artery, One Artery with Drug-eluting Intraluminal Device, Percutaneous Approach (ICD-10-PCS; principal; 2022-10-06 16:45)
DX: I21.4 Non-ST elevation (NSTEMI) myocardial infarction (principal); I13.0 Hypertensive heart and chronic kidney disease with heart failure and stage 1 through stage 4 chronic kidney disease, or unspecified chronic kidney disease; J96.11 Chronic respiratory failure with hypoxia; I50.32 Chronic diastolic (congestive) heart failure; J84.9 Interstitial pulmonary disease, unspecified; I45.2 Bifascicular block; I25.110 Atherosclerotic heart disease of native coronary artery with unstable angina pectoris; I95.9 Hypotension, unspecified; E11.22 Type 2 diabetes mellitus with diabetic chronic kidney disease; E11.40 Type 2 diabetes mellitus with diabetic neuropathy, unspecified; E11.51 Type 2 diabetes mellitus with diabetic peripheral angiopathy without gangrene; J84.10 Pulmonary fibrosis, unspecified; E11.65 Type 2 diabetes mellitus with hyperglycemia; J44.9 Chronic obstructive pulmonary disease, unspecified; Z79.4 Long term (current) use of insulin; Z28.310 Unvaccinated for COVID-19; I25.82 Chronic total occlusion of coronary artery; E87.5 Hyperkalemia; E78.5 Hyperlipidemia, unspecified; N18.9 Chronic kidney disease, unspecified; G89.4 Chronic pain syndrome; E86.0 Dehydration; M19.90 Unspecified osteoarthritis, unspecified site; F17.200 Nicotine dependence, unspecified, uncomplicated; Z71.6 Tobacco abuse counseling; Z99.81 Dependence on supplemental oxygen; Z79.82 Long term (current) use of aspirin; Z79.899 Other long term (current) drug therapy; Z96.41 Presence of insulin pump (external) (internal); Z86.711 Personal history of pulmonary embolism; Z87.11 Personal history of peptic ulcer disease; Z96.82 Presence of neurostimulator; Z95.828 Presence of other vascular implants and grafts; Z86.14 Personal history of Methicillin resistant Staphylococcus aureus infection; Z95.5 Presence of coronary angioplasty implant and graft; Z82.49 Family history of ischemic heart disease and other diseases of the circulatory system
CPT/HCPCS: 36415; 71045; 80048; 80053; 82009; 83036; 83735; 83880; 84100; 84484; 85025; 85610; 85730; 93005; 93306; 93454; 94640; 94760; 96361; 96374; 96375; 99285

== ENCOUNTER → 2023-03-11 | Outpatient (CLI) | payer MEDICARE ==
[2023-03-11 07:44] LABS: African American GFR (CKD) >90 (>60 ml/min/1.73 sqM); Blood Urea Nitrogen 17 mg/dL (9-20); Non-African American GFR(CKD) >90 (>60 ml/min/1.73 sqM)
--- NOTE | 2023-03-11 08:35 | CT ---
EXAMINATION TYPE: CT brain w con DATE OF EXAM: 03/11/2023 COMPARISON: 2015 CT exam. No post craniotomy comparisons are available this location. INDICATION: Hx lung ca, observe for mets. Hx tumor removal DLP: 1122 mGycm, Automated exposure control for dose reduction was used. CONTRAST: 100 mL Isovue-300 CT of the brain is performed utilizing 3 mm thick sections through the posterior fossa and 3 mm thick sections through the remaining calvarium. Study is performed within 24 hours of arrival to the hosp ital. No abnormal hyperdensity is present to suggest an acute intracranial hemorrhage. No mass lesion is evident. A prior right occipital craniotomy and prior cerebellar resection is evide nt. Mild periventricular white matter hypodensity is present, and the patient's chronic white matter rizo ges. There is a right cerebellar resection. The borders have some mild enhancement. No vasogenic edema is identified. Ventricles and sulci are appropriate for the patient age. Paranasal sinuses within the field of view are clear. There is fluid-filled mastoid air cells without septal destruction. Correlate for acute left mastoiditis. IMPRESSIONS: 1. No suspicious changes to suggest acute or recurrent metastatic cranial lesions. 2. There is some mild enhancement portions of the resection border in the right cerebellum. Residual tumor and postsurgical changes are within the differential. 3. There is likely some mild periventricular white matter ischemic type changes present.
== END | disposition home or self-care (01) ==
LOC: RADCTMAIN 06:59
PROVIDERS: ATTEND Internal Medicine Hematology & Oncology
DX: C34.2 Malignant neoplasm of middle lobe, bronchus or lung (principal); I67.82 Cerebral ischemia; R90.82 White matter disease, unspecified
CPT/HCPCS: 82565; 84520; 70460; 36415; Q9967

== ENCOUNTER 2023-04-03 05:33 | Day surgery (SDC) | payer MEDICARE ==
[~2023-04-03 05:33] MED LIST: ACETAMINOPHEN TAB 500 MG TAB PO PRN; HEPARIN SODIUM,PORCINE/PF 5,000 UNIT/0.5 ML SYRINGE SQ PRN; Pre Op ABX Message 1 EACH MISC MISCELLANE ONE
[2023-04-03] MEDS ORDERED: fentaNYL (PF) 50 MCG/ML 2 ML AMP IV PRN (05:35)
[2023-04-03] MEDS ORDERED: DEXAMETHASONE SOD PHOSPHATE 4 MG/ML 1 ML VIAL IV ONE (05:35)
[2023-04-03] MEDS ORDERED: ONDANSETRON 4 MG/2 ML VIAL IVP ONE (05:35)
[2023-04-03] MEDS ORDERED: LACTATED RINGERS 1,000 ML IV SCH (05:35)
--- NOTE | 2023-04-03 06:11 | P.GSHP ---
History of Present Illness H&P Date: 04/03/23 Chief Complaint: Metastatic lung cancer This a 62-year-old male who presents today for Port-A-Cath placement. Patient's recent diagnosis of metastatic lung cancer. Past Medical History Past Medical History: Coronary Artery Disease (CAD), Heart Failure, COPD, Diabetes Mellitus, GI Bleed, Hyperlipidemia, Hypertension, Osteoarthritis (OA), Pneumonia, Pulmonary Embolus (PE), Renal Disease, Respiratory Disorder, Vascular Disorder Additional Past Medical History / Comment(s): hx. 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 History of Any Multi-Drug Resistant Organisms: MRSA Date of last positivie culture/infection: 03/15/17 MDRO Source:: genital Past Surgical History: Back Surgery, Cholecystectomy, Heart Catheterization, Hea rt Catheterization With Stent Additional Past Surgical History / Comment(s): EGD's, 07/26/15 IVC filter, BACK STIMULATORS x 2 -cervical and lumbar,FEMORAL BYPASS RT LEG X3, metal chips removed from bilateral eyes Past Anesthesia/Blood Transfusion Reactions: No Reported Reaction Additional Past Anesthesia/Blood Transfusion Reaction / Comment(s): Pt has received blood transfusions without reaction. Date of Last Stent Placement:: Smoking Status: Former smoker - Past Family History Father History Unknown: Yes Family Medical History: Myocardial Infarction (SD) Additional Family Medical History / Comment(s): due to heart attack Mother History Unknown: Yes Family Medical History: Cancer Additional Family Medical History / Comment(s): LUNG CANCER Medications and Allergies Home Medications Medication Instructions Recorded Confirmed Type INSULIN LISPRO (For Pump) [humaLOG 0.01 units SQ-PUMP CONTINUOUS 10/29/16 04/03/23 History (For Pump)] Aspirin EC [Ecotrin Low Dose] 81 mg PO DAILY #30 tab 03/29/21 04/03/23 Rx Atorvastatin [Lipitor] 80 mg PO HS #90 tab 03/29/21 04/03/23 Rx Cholecalciferol [Vitamin D3 (125 2,000 units PO DAILY 10/05/22 04/03/23 History Mcg = 5000 Iu)] Metoprolol Succinate (ER) [Toprol 50 mg PO BID 10/05/22 04/03/23 History XL] Clopidogrel [Plavix] 75 mg PO DAILY #90 tab 10/07/22 04/03/23 Rx Multivitamins, Thera [Multivitamin 1 tab PO DAILY 12/16/22 04/03/23 History (formulary)] Folic Acid (Unk) 1 tab PO DAILY 04/01/23 04/03/23 History Memantine HCl 10 mg PO DAILY 04/01/23 04/03/23 History Allergies Allergy/AdvReac Type Severity Reaction Status Date / Time No Known Allergies Allergy Verified 04/03/23 06:02 Surgical - Exam - General well developed, no distress - Eyes PERRL - ENT normal pinna - Neck no masses - Respiratory normal expansion - Cardiovascular Rhythm: regular - Abdomen Abdomen: soft, non tender Assessment and Plan Assessment: History of metastatic lung cancer. We'll perform Port-A-Cath placement.
[2023-04-03 06:15] LABS: Glucose,Whole Blood 258 mg/dL (70-110)
[2023-04-03 06:23] VITALS: RESP 16; TEMP 97.2
[2023-04-03] MEDS ORDERED: PROPOFOL 10 MG/ML 20 ML VIAL IV ONE (06:24)
[2023-04-03] MEDS ORDERED: MIDAZOLAM 2 MG/2 ML VIAL ONE (06:24)
[2023-04-03] MEDS ORDERED: fentaNYL (PF) 50 MCG/ML 2 ML AMP ONE (06:24)
[2023-04-03] MEDS ORDERED: PHENYLEPHRINE-0.9% NACL SYG 1,000 MCG/10 ML SYRINGE ONE (06:24)
[2023-04-03] MEDS ORDERED: SODIUM CHLORIDE 0.9% 50 ML with ceFAZolin 2,000 MG IV ONE ×2 (06:25)
[2023-04-03] MEDS ORDERED: BUPIVACAINE (PF) 0.25% 30 ML VIAL SQ ONE ×2 (06:44)
--- NOTE | 2023-04-03 07:00 | P.OP ---
Date of Procedure: 04/03/23 Preoperative Diagnosis: Lung cancer Postoperative Diagnosis: Lung cancer Procedure(s) Performed: Right subclavian Port-A-Cath Anesthesia: MAC Surgeon: Ranjith Christianson Estimated Blood Loss (ml): 5 Pathology: none sent Condition: stable Disposition: PACU Description of Procedure: MThe patient was placed on the operating table in the supine position. The patient received IV sedation. The patient's chest was prepped and draped in the usual sterile fashion. A roll had been placed between the shoulder blades in a longitudinal fashion. After prepping and draping the skin was anesthetized 1% local Xylocaine. And then using the Seldinger technique the subclavian vein was cannulated. A wire was placed into the vein and fluoroscopy position the wire at the atrial caval junction. Next the dilator sheath was placed over top the wire and the wire was withdrawn. The catheter was positioned at the atriocaval position. The catheter was placed through the sheath after the dilator was withdrawn. The sheath was then withdrawn. Position of the catheter was confirmed with fluoroscopy. The Port-A-Cath was connected to the catheter. The Port-A-Cath was flushed with saline and then heparinized saline. The skin was closed interrupted 3-0 Monocryl suture. Dermabond was applied. Patient tolerated procedure well and was sent to recovery room stable condition.
[2023-04-03 07:18] VITALS: BP 145/83; PULSE 92
--- NOTE | 2023-04-03 08:11 | XR ---
EXAMINATION TYPE: XR chest 1V portable DATE OF EXAM: 04/03/2023 HISTORY: Shortness of breath. COMPARISON: 12/15/2022 TECHNIQUE: Single view of the chest is submitted. FINDINGS: Demonstrated are scattered senescent parenchymal change. Moderate COPD change. Right-sided MediPort catheter with its distal tip overlying the SVC. No evidence for pneumothorax. Increased density right midlung zone may reflect developing infiltrate. Additional atelectasis or inf iltrate left lung base. The heart is stable. Hilar and mediastinal structures are within normal limits. Degenerative changes are seen of the dorsal spine. IMPRESSION: 1. Right-sided MediPort catheter with its distal tip overlying the SVC. No evidence for pneumothorax .
--- NOTE | 2023-04-03 08:51 | FL ---
Fluoroscopy History: Port-A-Cath Insertion Port-A-Cath Insertion 13sec fluoro time 0.5333 DAP
== END 2023-04-03 08:50 | disposition home or self-care (01) ==
LOC: OR 05:33
PROVIDERS: ATTEND Surgery
DX: C34.90 Malignant neoplasm of unspecified part of unspecified bronchus or lung (principal); I25.10 Atherosclerotic heart disease of native coronary artery without angina pectoris; J44.9 Chronic obstructive pulmonary disease, unspecified; E11.9 Type 2 diabetes mellitus without complications; I11.0 Hypertensive heart disease with heart failure; M19.90 Unspecified osteoarthritis, unspecified site; I50.9 Heart failure, unspecified; Z45.2 Encounter for adjustment and management of vascular access device; Z86.711 Personal history of pulmonary embolism; Z99.81 Dependence on supplemental oxygen; Z90.49 Acquired absence of other specified parts of digestive tract; Z95.5 Presence of coronary angioplasty implant and graft; Z87.891 Personal history of nicotine dependence; Z82.49 Family history of ischemic heart disease and other diseases of the circulatory system; Z80.1 Family history of malignant neoplasm of trachea, bronchus and lung; Z79.4 Long term (current) use of insulin; Z79.82 Long term (current) use of aspirin; Z79.899 Other long term (current) drug therapy; Z79.02 Long term (current) use of antithrombotics/antiplatelets
CPT/HCPCS: 77001; 71045; 36561; C1788; J2250; J2405; J0690; J3010; J2370; J2704; J1644

== ENCOUNTER 2023-07-05 20:20 | Inpatient (IN) | payer MEDICARE ==
[2023-07-05] MEDS ORDERED: SODIUM CHLORIDE 0.9% 500 ML 500 ML IV STA (21:16)
[2023-07-05] MEDS ORDERED: SODIUM CHLORIDE 0.9% 1,000 ML IV STA (21:16)
[2023-07-05] MEDS ORDERED: MORPHINE SULFATE 4 MG/ML SYRINGE IV STA (21:16)
[2023-07-05] MEDS ORDERED: ONDANSETRON 4 MG/2 ML VIAL IVP STA (21:16)
--- NOTE | 2023-07-05 21:51 | ED ---
Weakness HPI - General Chief complaint: Weakness Stated complaint: right abdominal pain; hx stage IV ca Time Seen by Provider: 07/05/23 21:14 Source: patient, RN notes reviewed, old records reviewed Mode of arrival: ambulatory Limitations: no limitations - History of Present Illness Initial comments: This is a 62-year-old male to the emergency department for evaluation. Patient presents today for evaluation of right-sided abdominal pain. Patient does have underlying cancer on chemotherapy. Patient presents with severe weakness malnutrition not feeling well. But denying any other fever or complaint. Patient does has pain in the area of redness and tenderness right-sided abdominal wall which is location of his prior dialysis pump -: days(s) Severity: moderate Severity scale (1-10): 4 Improves with: none Worsens with: none Context: history of similar Associated Symptoms: denies other symptoms - Related Data Home Medications Medication Instructions Recorded Confirmed INSULIN LISPRO (For Pump) [humaLOG 0.01 units SQ-PUMP CONTINUOUS 10/29/16 07/06/23 (For Pump)] Metoprolol Succinate (ER) [Toprol 25 mg PO DAILY 10/05/22 07/06/23 XL] Multivitamins, Thera [Multivitamin 1 tab PO DAILY 12/16/22 07/06/23 (formulary)] Memantine HCl 10 mg PO BID 04/01/23 07/06/23 Acetaminophen Tab [Tylenol] 325 mg PO BID 07/06/23 07/06/23 Cholecalciferol [Vitamin D3 (25 50 mcg PO DAILY 07/06/23 07/06/23 Mcg = 1000 Iu)] Folic Acid 1 mg PO DAILY 07/06/23 07/06/23 Lidocaine-Prilocaine Cream [Emla 1 applic TOPICAL DIRECTED PRN 07/06/23 07/06/23 Cream 2.5%/2.5%] Ondansetron [Zofran] 4 mg PO Q4H PRN 07/06/23 07/06/23 Previous Rx's Medication Instructions Recorded Aspirin EC [Ecotrin Low Dose] 81 mg PO DAILY #30 tab 03/29/21 Atorvastatin [Lipitor] 80 mg PO HS #90 tab 03/29/21 Clopidogrel [Plavix] 75 mg PO DAILY #90 tab 10/07/22 Amoxic-Pot Clav 875-125Mg 1 tab PO Q12HR 10 Days #20 tab 07/10/23 [Augmentin 875-125] Doxycycline [Vibramycin] 100 mg PO BID 10 Days #20 cap 07/10/23 HYDROcodone/APAP 5-325MG [Hardwick 1 each PO Q6HR PRN #6 tab 07/10/23 5-325] Levothyroxine Sodium [Synthroid] 75 mcg PO DAILY@0630 30 Days #30 07/10/23 tab Megestrol [Megace] 40 mg PO DAILY 30 Days #30 tablet 07/10/23 Allergies Allergy/AdvReac Type Severity Reaction Status Date / Time No Known Allergies Allergy Verified 07/06/23 13:38 Review of Systems ROS Statement: Those systems with pertinent positive or pertinent negative responses have been documented in the HPI. ROS Other: All systems not noted in ROS Statement are negative. Past Medical History Past Medical History: Coronary Artery Disease (CAD), Cancer, Heart Failure, COPD, Diabetes Mellitus, GI Bleed, Hyperlipidemia, Hypertension, Osteoarthritis (OA), Pneumonia, Pulmonary Embolus (PE), Renal Disease, Respiratory Disorder, Vascular Disorder Additional Past Medical History / Comment(s): hx. multiple gastric ulcers, hx of chronic respiratory failure-intubated and ventilated,Pulmonary fibrosis, interstitial lung disease, CHF-chronic diastolic dysfunction, O2 dependence with O2 at 3L/NC ATC, severe PVD, chronic renal failure per old medical hx but pt denies, chronic pain syndrome, migraines, pancreatitis, DJD, neuropathy bilate ral upper and lower extremities, gout, tendonitis R arm, carpal tunnel bilaterally. History of Any Multi-Drug Resistant Organisms: MRSA Date of last positivie culture/infection: 03/15/17 MDRO Source:: genital Past Surgical History: Back Surgery, Cholecystectomy, Heart Catheterization, Heart Catheterization With Stent Additional Past Surgical History / Comment(s): EGD's, 07/26/15 IVC filter, BACK STIMULATORS x 2 -cervical and lumbar,FEMORAL BYPASS RT LEG X3, metal chips r emoved from bilateral eyes Past Anesthesia/Blood Transfusion Reactions: No Reported Reaction Additional Past Anesthesia/Blood Transfusion Reaction / Comment(s): Pt has received blood transfusions without reaction. Date of Last Stent Placement:: 1999,2021 Past Psychological History: Anxiety, Depression Smoking Status: Former smoker Past Alcohol Use History: None Reported Past Drug Use History: None Reported - Past Family History Father History Unknown: Yes Family Medical History: Myocardial Infarction (CO) Additional Family Medical History / Comment(s): due to heart attack Mother History Unknown: Yes Family Medical History: Cancer Additional Family Medical History / Comment(s): LUNG CANCER General Exam - General Exam Comments Initial Comments: Area of right-sided abdominal wall redness erythema and tenderness Limitations: no limitations General appearance: alert, in no apparent distress Head exam: Present: atraumatic, normocephalic, normal inspection Eye exam: Present: normal appearance, PERRL, EOMI. Absent: scleral icterus, conjunctival injection, periorbital swelling ENT exam: Present: normal exam, mucous membranes moist Neck exam: Present: normal inspection. Absent: tenderness, meningismus, lymphadenopathy Respiratory exam: Present: normal lung sounds bilaterally. Absent: respiratory distress, wheezes, rales, rhonchi, stridor Cardiovascular Exam: Present: regular rate, normal rhythm, normal heart sounds. Absent: systolic murmur, diastolic murmur, rubs, gallop, clicks GI/Abdominal exam: Present: soft, normal bowel sounds, other (Right-sided abdominal wall cellulitis with induration and developing abscess). Absent: distended, tenderness, guarding, rebound, rigid Extremities exam: Present: normal inspection, full ROM, normal capillary refill. Absent: tenderness, pedal edema, joint swelling, calf tenderness Back exam: Present: normal inspection Neurological exam: Present: alert, oriented X3, CN II-XII intact Psychiatric exam: Present: normal affect, normal mood Skin exam: Present: warm, dry, intact, normal color. Absent: rash Course Vital Signs 07/05/23 07/05/23 07/05/23 20:30 21:00 21:33 Temperature 97.7 F Pulse Rate 97 87 80 Respiratory 20 16 16 Rate Blood Pressure 96/64 124/88 129/78 O2 Sat by Pulse 100 100 100 Oximetry 07/05/23 07/05/23 07/06/23 22:00 23:00 00:00 Temperature Pulse Rate 80 78 79 Respiratory 16 16 18 Rate Blood Pressure 120/76 144/78 157/81 O2 Sat by Pulse 100 100 Oximetry 07/06/23 07/06/23 07/06/23 01:00 02:00 03:00 Temperature Pulse Rate 85 80 80 Respiratory 18 14 16 Rate Blood Pressure 160/86 144/85 132/77 O2 Sat by Pulse 100 100 100 Oximetry 07/06/23 07/06/23 07/06/23 04:00 05:00 06:00 Temperature Pulse Rate 82 84 84 Respiratory 16 16 14 Rate Blood Pressure 120/76 152/87 159/94 O2 Sat by Pulse 100 100 100 Oximetry - Reevaluation(s) Reevaluation #1: 07/06/23 00:32 Medical records reviewed Reevaluation #2: 07/06/23 00:32 Patient symptoms unchanged 07/06/23 00:32 Patient feels very weak and does not feel couple with discharge home Reevaluation #3: 07/06/23 00:32 patient informed of results questions answered Reevaluation #4: 07/05/23 21:57 Was pt. sent in by a medical professional or institution (PETRONA Werner, CONSULTING INTERN, urgent care, hospital, or halfway...) When possible be specific @ -no Did you speak to anyone other than the patient for history (EMS, parent, family, police, friend...)? What history was obtained from this source @ -no Did you review nursing and triage notes (agree or disagree)? Why? @ -agree Are old charts reviewed (outside hosp., previous admission, EMS record, old EKG, old radiological studies, urgent care reports/EKG's, halfway records)? Report findings @ -yes Differential Diagnosis (chest pain, altered mental status, abdominal pain women, abdominal pain men, vaginal bleeding, weakness, fever, dyspnea, syncope, headache, dizziness, GI bleed, back pain, seizure, CVA, palpatations, mental health, musculoskeletal)? @ -prior EKG interpreted by me (3pts min.). @ -yes X-rays interpreted by me (1pt min.). @ -no CT interpreted by me (1pt min.). @ -no U/S interpreted by me (1pt. min.). @ -yes What testing was considered but not performed or refused? (CT, X-rays, U/S, labs)? Why? @ -none What meds were considered but not given or refused? Why? @ -none Did you discuss the management of the patient with other professionals (professionals i.e. PETRONA Werner, CONSULTING INTERN, lab, RT, psych nurse, social worker psychiatric, footwear stitcher, teacher, aoc director combat operations officer, case resolution specialist)? Give summary @ -no Was smoking cessation discussed for >3mins.? @ -no Was critical care preformed (if so, how long)? @ -no Were there social determinants of health that impacted care today? How? (Homelessness, low income, unemployed, alcoholism, drug addiction, transportation, low edu. Level, literacy, decrease access to med. care, longterm, rehab)? @ -none Was there de-escalation of care discussed even if they declined (Discuss DNR or withdrawal of care, Hospice)? DNR status @ -no What co-morbidities impacted this encounter? (DM, HTN, Smoking, COPD, CAD, Cancer, CVA, ARF, Chemo, Hep., AIDS, mental health diagnosis, sleep apnea, morbid obesity)? @ -none Was patient admitted / discharged? Hospital course, mention meds given and route, prescriptions, significant lab abnormalities, going to OR and other pertinent info. @ - 62 male to the emergency department today for evaluation of right-sided pain. Patient recently moved his dialysis pump location and prior area has significant induration and erythema tenderness and swelling. Patient has not noticed any drainage from the area but the pain is increasing. Patient is undergoing chemotherapy for cancer Discharge Undiagnosed new problem with uncertain prognosis? @ -no Drug Therapy requiring intensive monitoring for toxicity (Heparin, Nitro, Insulin, Cardizem)? @ -no Were any procedures done? @ -no Diagnosis/symptom? @ -Right-sided abdominal abscess, cellulitis Acute, or Chronic, or Acute on Chronic? @ -Acute Uncomplicated (without systemic symptoms) or Complicated (systemic symptoms)? @ -Complicated Side effects of treatment? @ -no Exacerbation, Progression, or Severe Exacerbation? @ -exacerbation Poses a threat to life or bodily function? How? (Chest pain, [place], CO, pneumonia, PE, COPD, DKA, ARF, appy, cholecystitis, CVA, Diverticulitis, Homicidal, Suicidal, threat to staff... and all critical care pts) @ -yes significant illness and comorbidities including cancer - Consultations Consultation #1: Spoke with [facility] were agrees to admit this patient EKG Findings - EKG Comments: EKG Findings:: EKG is sinus 72 CO 140 QRS 157 QTc 456 - EKG Results: EKG: interpreted by ERMD Medical Decision Making - Medical Decision Making 62 male to the emergency department today for evaluation of right-sided pain. Patient recently moved his dialysis pump location and prior area has significant induration and erythema tenderness and swelling. Patient has not noticed any drainage from the area but the pain is increasing. Patient is undergoing chemotherapy for cancer - Lab Data Result diagrams: 07/13/23 05:32 07/13/23 05:32 Lab Results 07/05/23 07/05/23 07/05/23 Range/Units 21:52 21:52 21:52 WBC 3.7 L (3.8-10.6) k/uL RBC 2.87 L (4.30-5.90) m/uL Hgb 8.8 L (13.0-17.5) gm/dL Hct 24.8 L (39.0-53.0) % MCV 86.6 (80.0-100.0) fL MCH 30.7 (25.0-35.0) pg MCHC 35.5 (31.0-37.0) g/dL RDW 17.0 H (11.5-15.5) % Plt Count 255 (150-450) k/uL MPV 8.0 Immature Gran % (Auto) % Absolute Nucleated RBC % Neutrophils % % Neutrophils % (Manual) 58 % Band Neuts % (Manual) 5 % Lymphocytes % % Lymphocytes % (Manual) 28 % Monocytes % % Monocytes % (Manual) 7 % Eosinophils % % Eosinophils % (Manual) 2 % Basophils % % Immature Gran # X 10*3/uL Neutrophils # (1.80-7.70) X 10*3/uL Neutrophils # (Manual) 2.30 (1.3-7.7) k/uL Lymphocytes # (0.90-5.00) X 10*3/uL Lymphocytes # (Manual) 1.04 (1.0-4.8) k/uL Monocytes # (0.20-1.00) X 10*3/uL Monocytes # (Manual) 0.26 (0-1.0) k/uL Eosinophils # (0.04-0.35) X 10*3/uL Eosinophils # (Manual) 0.07 (0-0.7) k/uL Basophils # (0.00-0.10) X 10*3/uL Nucleated RBCs 0 (0-0) /100 WBC NRBC/100 WBC Diff (0.00-0.01) X 10*3/uL Differential Comment Manual Slide Review Performed Poikilocytosis (manual Present Anisocytosis Slight Anisocytosis (manual) Present Ovalocytes Present PT 9.9 (9.0-12.0) sec INR 0.9 (<1.2) APTT 25.5 (22.0-30.0) sec Sodium 136 L (137-145) mmol/L Potassium 4.3 (3.5-5.1) mmol/L Chloride 104 (98-107) mmol/L Carbon Dioxide 24 (22-30) mmol/L Anion Gap 8 mmol/L BUN 12 (9-20) mg/dL Creatinine 0.86 (0.66-1.25) mg/dL Est GFR (CKD-EPI) (>=60) Est GFR (CKD-EPI)AfAm >90 (>60 ml/min/1.73 sqM) Est GFR (CKD-EPI)NonAf >90 (>60 ml/min/1.73 sqM) BUN/Creatinine Ratio (12.00-20.00) Ratio Glucose 158 H (74-99) mg/dL POC Glucose (mg/dL) (70-110) mg/dL POC Glu Java Spring Developer ID Estimated Ave Glu mg/dL mg/dL Hemoglobin A1c (<=6.0) % Plasma Lactic Acid Allan (0.7-2.0) mmol/L Calcium 8.5 (8.4-10.2) mg/dL Phosphorus 3.2 (2.5-4.5) mg/dL Magnesium 1.6 (1.6-2.3) mg/dL Total Bilirubin 0.4 (0.2-1.3) mg/dL AST 30 (17-59) U/L ALT 17 (4-49) U/L Alkaline Phosphatase 153 H (38-126) U/L Troponin I (0.000-0.034) ng/mL NT-Pro-B Natriuret Pep 218 pg/mL Total Protein 6.1 L (6.3-8.2) g/dL Albumin 3.2 L (3.5-5.0) g/dL Globulin (1.6-3.3) d/dL Albumin/Globulin Ratio (1.60-3.17) Ratio TSH 74.400 H (0.465-4.680) mIU/L Free T4 (0.78-2.19) ng/dL Urine Color Urine Appearance (Clear) Urine pH (5.0-8.0) Ur Specific [place] (1.001-1.035) Urine Protein (Negative) Urine Glucose (UA) (Negative) Urine Ketones (Negative) Urine Blood (Negative) Urine Nitrite (Negative) Urine Bilirubin (Negative) Urine Urobilinogen (<2.0) mg/dL Ur Leukocyte Esterase (Negative) Vancomycin Trough ug/mL 07/05/23 07/05/23 07/05/23 Range/Units 21:52 21:52 21:52 WBC (3.8-10.6) k/uL RBC (4.30-5.90) m/uL Hgb (13.0-17.5) gm/dL Hct (39.0-53.0) % MCV (80.0-100.0) fL MCH (25.0-35.0) pg MCHC (31.0-37.0) g/dL RDW (11.5-15.5) % Plt Count (150-450) k/uL MPV Immature Gran % (Auto) % Absolute Nucleated RBC % Neutrophils % % Neutrophils % (Manual) % Band Neuts % (Manual) % Lymphocytes % % Lymphocytes % (Manual) % Monocytes % % Monocytes % (Manual) % Eosinophils % % Eosinophils % (Manual) % Basophils % % Immature Gran # X 10*3/uL Neutrophils # (1.80-7.70) X 10*3/uL Neutrophils # (Manual) (1.3-7.7) k/uL Lymphocytes # (0.90-5.00) X 10*3/uL Lymphocytes # (Manual) (1.0-4.8) k/uL Monocytes # (0.20-1.00) X 10*3/uL Monocytes # (Manual) (0-1.0) k/uL Eosinophils # (0.04-0.35) X 10*3/uL Eosinophils # (Manual) (0-0.7) k/uL Basophils # (0.00-0.10) X 10*3/uL Nucleated RBCs (0-0) /100 WBC NRBC/100 WBC Diff (0.00-0.01) X 10*3/uL Differential Comment Manual Slide Review Poikilocytosis (manual Anisocytosis Anisocytosis (manual) Ovalocytes PT (9.0-12.0) sec INR (<1.2) APTT (22.0-30.0) sec Sodium (137-145) mmol/L Potassium (3.5-5.1) mmol/L Chloride (98-107) mmol/L Carbon Dioxide (22-30) mmol/L Anion Gap mmol/L BUN (9-20) mg/dL Creatinine (0.66-1.25) mg/dL Est GFR (CKD-EPI) (>=60) Est GFR (CKD-EPI)AfAm (>60 ml/min/1.73 sqM) Est GFR (CKD-EPI)NonAf (>60 ml/min/1.73 sqM) BUN/Creatinine Ratio (12.00-20.00) Ratio Glucose (74-99) mg/dL POC Glucose (mg/dL) (70-110) mg/dL POC Glu Java Spring Developer ID Estimated Ave Glu mg/dL mg/dL Hemoglobin A1c (<=6.0) % Plasma Lactic Acid Allan 1.8 (0.7-2.0) mmol/L Calcium (8.4-10.2) mg/dL Phosphorus (2.5-4.5) mg/dL Magnesium (1.6-2.3) mg/dL Total Bilirubin (0.2-1.3) mg/dL AST (17-59) U/L ALT (4-49) U/L Alkaline Phosphatase (38-126) U/L Troponin I <0.012 (0.000-0.034) ng/mL NT-Pro-B Natriuret Pep pg/mL Total Protein (6.3-8.2) g/dL Albumin (3.5-5.0) g/dL Globulin (1.6-3.3) d/dL Albumin/Globulin Ratio (1.60-3.17) Ratio TSH (0.465-4.680) mIU/L Free T4 0.14 L (0.78-2.19) ng/dL Urine Color Urine Appearance (Clear) Urine pH (5.0-8.0) Ur Specific [place] (1.001-1.035) Urine Protein (Negative) Urine Glucose (UA) (Negative) Urine Ketones (Negative) Urine Blood (Negative) Urine Nitrite (Negative) Urine Bilirubin (Negative) Urine Urobilinogen (<2.0) mg/dL Ur Leukocyte Esterase (Negative) Vancomycin Trough ug/mL 07/05/23 07/06/23 07/06/23 Range/Units 23:00 00:52 07:56 WBC (3.8-10.6) k/uL RBC (4.30-5.90) m/uL Hgb (13.0-17.5) gm/dL Hct (39.0-53.0) % MCV (80.0-100.0) fL MCH (25.0-35.0) pg MCHC (31.0-37.0) g/dL RDW (11.5-15.5) % Plt Count (150-450) k/uL MPV Immature Gran % (Auto) % Absolute Nucleated RBC % Neutrophils % % Neutrophils % (Manual) % Band Neuts % (Manual) % Lymphocytes % % Lymphocytes % (Manual) % Monocytes % % Monocytes % (Manual) % Eosinophils % % Eosinophils % (Manual) % Basophils % % Immature Gran # X 10*3/uL Neutrophils # (1.80-7.70) X 10*3/uL Neutrophils # (Manual) (1.3-7.7) k/uL Lymphocytes # (0.90-5.00) X 10*3/uL Lymphocytes # (Manual) (1.0-4.8) k/uL Monocytes # (0.20-1.00) X 10*3/uL Monocytes # (Manual) (0-1.0) k/uL Eosinophils # (0.04-0.35) X 10*3/uL Eosinophils # (Manual) (0-0.7) k/uL Basophils # (0.00-0.10) X 10*3/uL Nucleated RBCs (0-0) /100 WBC NRBC/100 WBC Diff (0.00-0.01) X 10*3/uL Differential Comment Manual Slide Review Poikilocytosis (manual Anisocytosis Anisocytosis (manual) Ovalocytes PT (9.0-12.0) sec INR (<1.2) APTT (22.0-30.0) sec Sodium (137-145) mmol/L Potassium (3.5-5.1) mmol/L Chloride (98-107) mmol/L Carbon Dioxide (22-30) mmol/L Anion Gap mmol/L BUN (9-20) mg/dL Creatinine (0.66-1.25) mg/dL Est GFR (CKD-EPI) (>=60) Est GFR (CKD-EPI)AfAm (>60 ml/min/1.73 sqM) Est GFR (CKD-EPI)NonAf (>60 ml/min/1.73 sqM) BUN/Creatinine Ratio (12.00-20.00) Ratio Glucose (74-99) mg/dL POC Glucose (mg/dL) 71 44 L (70-110) mg/dL POC Glu Java Spring Developer ID Rayray An Morgan Estimated Ave Glu mg/dL mg/dL Hemoglobin A1c (<=6.0) % Plasma Lactic Acid Allan (0.7-2.0) mmol/L Calcium (8.4-10.2) mg/dL Phosphorus (2.5-4.5) mg/dL Magnesium (1.6-2.3) mg/dL Total Bilirubin (0.2-1.3) mg/dL AST (17-59) U/L ALT (4-49) U/L Alkaline Phosphatase (38-126) U/L Troponin I (0.000-0.034) ng/mL NT-Pro-B Natriuret Pep pg/mL Total Protein (6.3-8.2) g/dL Albumin (3.5-5.0) g/dL Globulin (1.6-3.3) d/dL Albumin/Globulin Ratio (1.60-3.17) Ratio TSH (0.465-4.680) mIU/L Free T4 (0.78-2.19) ng/dL Urine Color Yellow Urine Appearance Clear (Clear) Urine pH 5.5 (5.0-8.0) Ur Specific [place] 1.005 (1.001-1.035) Urine Protein Negative (Negative) Urine Glucose (UA) Trace H (Negative) Urine Ketones Negative (Negative) Urine Blood Negative (Negative) Urine Nitrite Negative (Negative) Urine Bilirubin Negative (Negative) Urine Urobilinogen <2.0 (<2.0) mg/dL Ur Leukocyte Esterase Negative (Negative) Vancomycin Trough ug/mL 07/06/23 07/06/23 07/06/23 Range/Units 07:58 08:18 08:21 WBC (3.8-10.6) k/uL RBC (4.30-5.90) m/uL Hgb (13.0-17.5) gm/dL Hct (39.0-53.0) % MCV (80.0-100.0) fL MCH (25.0-35.0) pg MCHC (31.0-37.0) g/dL RDW (11.5-15.5) % Plt Count (150-450) k/uL MPV Immature Gran % (Auto) % Absolute Nucleated RBC % Neutrophils % % Neutrophils % (Manual) % Band Neuts % (Manual) % Lymphocytes % % Lymphocytes % (Manual) % Monocytes % % Monocytes % (Manual) % Eosinophils % % Eosinophils % (Manual) % Basophils % % Immature Gran # X 10*3/uL Neutrophils # (1.80-7.70) X 10*3/uL Neutrophils # (Manual) (1.3-7.7) k/uL Lymphocytes # (0.90-5.00) X 10*3/uL Lymphocytes # (Manual) (1.0-4.8) k/uL Monocytes # (0.20-1.00) X 10*3/uL Monocytes # (Manual) (0-1.0) k/uL Eosinophils # (0.04-0.35) X 10*3/uL Eosinophils # (Manual) (0-0.7) k/uL Basophils # (0.00-0.10) X 10*3/uL Nucleated RBCs (0-0) /100 WBC NRBC/100 WBC Diff (0.00-0.01) X 10*3/uL Differential Comment Manual Slide Review Poikilocytosis (manual Anisocytosis Anisocytosis (manual) Ovalocytes PT (9.0-12.0) sec INR (<1.2) APTT (22.0-30.0) sec Sodium (137-145) mmol/L Potassium (3.5-5.1) mmol/L Chloride (98-107) mmol/L Carbon Dioxide (22-30) mmol/L Anion Gap mmol/L BUN (9-20) mg/dL Creatinine (0.66-1.25) mg/dL Est GFR (CKD-EPI) (>=60) Est GFR (CKD-EPI)AfAm (>60 ml/min/1.73 sqM) Est GFR (CKD-EPI)NonAf (>60 ml/min/1.73 sqM) BUN/Creatinine Ratio (12.00-20.00) Ratio Glucose (74-99) mg/dL POC Glucose (mg/dL) 44 L 36 L 42 L (70-110) mg/dL POC Glu Java Spring Developer Mian Akbar, Mian Gonzalez Estimated Ave Glu mg/dL mg/dL Hemoglobin A1c (<=6.0) % Plasma Lactic Acid Allan (0.7-2.0) mmol/L Calcium (8.4-10.2) mg/dL Phosphorus (2.5-4.5) mg/dL Magnesium (1.6-2.3) mg/dL Total Bilirubin (0.2-1.3) mg/dL AST (17-59) U/L ALT (4-49) U/L Alkaline Phosphatase (38-126) U/L Troponin I (0.000-0.034) ng/mL NT-Pro-B Natriuret Pep pg/mL Total Protein (6.3-8.2) g/dL Albumin (3.5-5.0) g/dL Globulin (1.6-3.3) d/dL Albumin/Globulin Ratio (1.60-3.17) Ratio TSH (0.465-4.680) mIU/L Free T4 (0.78-2.19) ng/dL Urine Color Urine Appearance (Clear) Urine pH (5.0-8.0) Ur Specific [place] (1.001-1.035) Urine Protein (Negative) Urine Glucose (UA) (Negative) Urine Ketones (Negative) Urine Blood (Negative) Urine Nitrite (Negative) Urine Bilirubin (Negative) Urine Urobilinogen (<2.0) mg/dL Ur Leukocyte Esterase (Negative) Vancomycin Trough ug/mL 07/06/23 07/06/23 07/06/23 Range/Units 08:42 09:05 12:39 WBC (3.8-10.6) k/uL RBC (4.30-5.90) m/uL Hgb (13.0-17.5) gm/dL Hct (39.0-53.0) % MCV (80.0-100.0) fL MCH (25.0-35.0) pg MCHC (31.0-37.0) g/dL RDW (11.5-15.5) % Plt Count (150-450) k/uL MPV Immature Gran % (Auto) % Absolute Nucleated RBC % Neutrophils % % Neutrophils % (Manual) % Band Neuts % (Manual) % Lymphocytes % % Lymphocytes % (Manual) % Monocytes % % Monocytes % (Manual) % Eosinophils % % Eosinophils % (Manual) % Basophils % % Immature Gran # X 10*3/uL Neutrophils # (1.80-7.70) X 10*3/uL Neutrophils # (Manual) (1.3-7.7) k/uL Lymphocytes # (0.90-5.00) X 10*3/uL Lymphocytes # (Manual) (1.0-4.8) k/uL Monocytes # (0.20-1.00) X 10*3/uL Monocytes # (Manual) (0-1.0) k/uL Eosinophils # (0.04-0.35) X 10*3/uL Eosinophils # (Manual) (0-0.7) k/uL Basophils # (0.00-0.10) X 10*3/uL Nucleated RBCs (0-0) /100 WBC NRBC/100 WBC Diff (0.00-0.01) X 10*3/uL Differential Comment Manual Slide Review Poikilocytosis (manual Anisocytosis Anisocytosis (manual) Ovalocytes PT (9.0-12.0) sec INR (<1.2) APTT (22.0-30.0) sec Sodium (137-145) mmol/L Potassium (3.5-5.1) mmol/L Chloride (98-107) mmol/L Carbon Dioxide (22-30) mmol/L Anion Gap mmol/L BUN (9-20) mg/dL Creatinine (0.66-1.25) mg/dL Est GFR (CKD-EPI) (>=60) Est GFR (CKD-EPI)AfAm (>60 ml/min/1.73 sqM) Est GFR (CKD-EPI)NonAf (>60 ml/min/1.73 sqM) BUN/Creatinine Ratio (12.00-20.00) Ratio Glucose (74-99) mg/dL POC Glucose (mg/dL) 37 L 101 246 H (70-110) mg/dL POC Glu Java Spring Developer ID Mian Quinn, Mian Gonzalez Estimated Ave Glu mg/dL mg/dL Hemoglobin A1c (<=6.0) % Plasma Lactic Acid Allan (0.7-2.0) mmol/L Calcium (8.4-10.2) mg/dL Phosphorus (2.5-4.5) mg/dL Magnesium (1.6-2.3) mg/dL Total Bilirubin (0.2-1.3) mg/dL AST (17-59) U/L ALT (4-49) U/L Alkaline Phosphatase (38-126) U/L Troponin I (0.000-0.034) ng/mL NT-Pro-B Natriuret Pep pg/mL Total Protein (6.3-8.2) g/dL Albumin (3.5-5.0) g/dL Globulin (1.6-3.3) d/dL Albumin/Globulin Ratio (1.60-3.17) Ratio TSH (0.465-4.680) mIU/L Free T4 (0.78-2.19) ng/dL Urine Color Urine Appearance (Clear) Urine pH (5.0-8.0) Ur Specific [place] (1.001-1.035) Urine Protein (Negative) Urine Glucose (UA) (Negative) Urine Ketones (Negative) Urine Blood (Negative) Urine Nitrite (Negative) Urine Bilirubin (Negative) Urine Urobilinogen (<2.0) mg/dL Ur Leukocyte Esterase (Negative) Vancomycin Trough ug/mL 07/06/23 07/06/23 07/07/23 Range/Units 17:27 20:24 05:53 WBC (3.8-10.6) k/uL RBC (4.30-5.90) m/uL Hgb (13.0-17.5) gm/dL Hct (39.0-53.0) % MCV (80.0-100.0) fL MCH (25.0-35.0) pg MCHC (31.0-37.0) g/dL RDW (11.5-15.5) % Plt Count (150-450) k/uL MPV Immature Gran % (Auto) % Absolute Nucleated RBC % Neutrophils % % Neutrophils % (Manual) % Band Neuts % (Manual) % Lymphocytes % % Lymphocytes % (Manual) % Monocytes % % Monocytes % (Manual) % Eosinophils % % Eosinophils % (Manual) % Basophils % % Immature Gran # X 10*3/uL Neutrophils # (1.80-7.70) X 10*3/uL Neutrophils # (Manual) (1.3-7.7) k/uL Lymphocytes # (0.90-5.00) X 10*3/uL Lymphocytes # (Manual) (1.0-4.8) k/uL Monocytes # (0.20-1.00) X 10*3/uL Monocytes # (Manual) (0-1.0) k/uL Eosinophils # (0.04-0.35) X 10*3/uL Eosinophils # (Manual) (0-0.7) k/uL Basophils # (0.00-0.10) X 10*3/uL Nucleated RBCs (0-0) /100 WBC NRBC/100 WBC Diff (0.00-0.01) X 10*3/uL Differential Comment Manual Slide Review Poikilocytosis (manual Anisocytosis Anisocytosis (manual) Ovalocytes PT (9.0-12.0) sec INR (<1.2) APTT (22.0-30.0) sec Sodium (137-145) mmol/L Potassium (3.5-5.1) mmol/L Chloride (98-107) mmol/L Carbon Dioxide (22-30) mmol/L Anion Gap mmol/L BUN (9-20) mg/dL Creatinine (0.66-1.25) mg/dL Est GFR (CKD-EPI) (>=60) Est GFR (CKD-EPI)AfAm (>60 ml/min/1.73 sqM) Est GFR (CKD-EPI)NonAf (>60 ml/min/1.73 sqM) BUN/Creatinine Ratio (12.00-20.00) Ratio Glucose (74-99) mg/dL POC Glucose (mg/dL) 382 H 329 H (70-110) mg/dL POC Glu [employer] Developer Mian Akbar [address] Glu mg/dL 209 mg/dL Hemoglobin A1c 8.9 H (<=6.0) % Plasma Lactic Acid Allan (0.7-2.0) mmol/L Calcium (8.4-10.2) mg/dL Phosphorus (2.5-4.5) mg/dL Magnesium (1.6-2.3) mg/dL Total Bilirubin (0.2-1.3) mg/dL AST (17-59) U/L ALT (4-49) U/L Alkaline Phosphatase (38-126) U/L Troponin I (0.000-0.034) ng/mL NT-Pro-B Natriuret Pep pg/mL Total Protein (6.3-8.2) g/dL Albumin (3.5-5.0) g/dL Globulin (1.6-3.3) d/dL Albumin/Globulin Ratio (1.60-3.17) Ratio TSH (0.465-4.680) mIU/L Free T4 (0.78-2.19) ng/dL Urine Color Urine Appearance (Clear) Urine pH (5.0-8.0) Ur Specific [place] (1.001-1.035) Urine Protein (Negative) Urine Glucose (UA) (Negative) Urine Ketones (Negative) Urine Blood (Negative) Urine Nitrite (Negative) Urine Bilirubin (Negative) Urine Urobilinogen (<2.0) mg/dL Ur Leukocyte Esterase (Negative) Vancomycin Trough ug/mL 07/07/23 07/07/23 07/07/23 Range/Units 05:53 05:53 07:23 WBC 6.61 (3.8-10.6) k/uL RBC 2.95 L (4.30-5.90) m/uL Hgb 9.0 L (13.0-17.5) gm/dL Hct 27.1 L (39.0-53.0) % MCV 91.9 (80.0-100.0) fL MCH 30.5 (25.0-35.0) pg MCHC 33.2 (31.0-37.0) g/dL RDW 16.3 H (11.5-15.5) % Plt Count 279 (150-450) k/uL MPV 9.3 L Immature Gran % (Auto) 1.10 % Absolute Nucleated RBC 0 % Neutrophils % 69.5 % Neutrophils % (Manual) % Band Neuts % (Manual) % Lymphocytes % 12.7 % Lymphocytes % (Manual) % Monocytes % 15.1 % Monocytes % (Manual) % Eosinophils % 1.1 % Eosinophils % (Manual) % Basophils % 0.5 % Immature Gran # 0.07 X 10*3/uL Neutrophils # 4.60 (1.80-7.70) X 10*3/uL Neutrophils # (Manual) (1.3-7.7) k/uL Lymphocytes # 0.84 L (0.90-5.00) X 10*3/uL Lymphocytes # (Manual) (1.0-4.8) k/uL Monocytes # 1.00 (0.20-1.00) X 10*3/uL Monocytes # (Manual) (0-1.0) k/uL Eosinophils # 0.07 (0.04-0.35) X 10*3/uL Eosinophils # (Manual) (0-0.7) k/uL Basophils # 0.03 (0.00-0.10) X 10*3/uL Nucleated RBCs (0-0) /100 WBC NRBC/100 WBC Diff 0 (0.00-0.01) X 10*3/uL Differential Comment Manual Slide Review Poikilocytosis (manual Anisocytosis Anisocytosis (manual) Ovalocytes PT (9.0-12.0) sec INR (<1.2) APTT (22.0-30.0) sec Sodium 144 (137-145) mmol/L Potassium 4.9 (3.5-5.1) mmol/L Chloride 108 (98-107) mmol/L Carbon Dioxide 25.6 (22-30) mmol/L Anion Gap 10.40 mmol/L BUN 8.4 L (9-20) mg/dL Creatinine 0.9 (0.66-1.25) mg/dL Est GFR (CKD-EPI) 97 (>=60) Est GFR (CKD-EPI)AfAm (>60 ml/min/1.73 sqM) Est GFR (CKD-EPI)NonAf (>60 ml/min/1.73 sqM) BUN/Creatinine Ratio 9.33 L (12.00-20.00) Ratio Glucose 155 H (74-99) mg/dL POC Glucose (mg/dL) 226 H (70-110) mg/dL POC Glu [employer] Developer Mian Akbar [address] Glu mg/dL mg/dL Hemoglobin A1c (<=6.0) % Plasma Lactic Acid Allan (0.7-2.0) mmol/L Calcium 8.7 (8.4-10.2) mg/dL Phosphorus 3.2 (2.5-4.5) mg/dL Magnesium 1.9 (1.6-2.3) mg/dL Total Bilirubin <0.2 L (0.2-1.3) mg/dL AST 27 (17-59) U/L ALT 17 (4-49) U/L Alkaline Phosphatase 195 H (38-126) U/L Troponin I (0.000-0.034) ng/mL NT-Pro-B Natriuret Pep pg/mL Total Protein 5.9 L (6.3-8.2) g/dL Albumin 3.5 L (3.5-5.0) g/dL Globulin 2.4 (1.6-3.3) d/dL Albumin/Globulin Ratio 1.46 L (1.60-3.17) Ratio TSH (0.465-4.680) mIU/L Free T4 (0.78-2.19) ng/dL Urine Color Urine Appearance (Clear) Urine pH (5.0-8.0) Ur Specific [place] (1.001-1.035) Urine Protein (Negative) Urine Glucose (UA) (Negative) Urine Ketones (Negative) Urine Blood (Negative) Urine Nitrite (Negative) Urine Bilirubin (Negative) Urine Urobilinogen (<2.0) mg/dL Ur Leukocyte Esterase (Negative) Vancomycin Trough ug/mL 07/07/23 07/07/23 07/07/23 Range/Units 12:33 17:17 20:32 WBC (3.8-10.6) k/uL RBC (4.30-5.90) m/uL Hgb (13.0-17.5) gm/dL Hct (39.0-53.0) % MCV (80.0-100.0) fL MCH (25.0-35.0) pg MCHC (31.0-37.0) g/dL RDW (11.5-15.5) % Plt Count (150-450) k/uL MPV Immature Gran % (Auto) % Absolute Nucleated RBC % Neutrophils % % Neutrophils % (Manual) % Band Neuts % (Manual) % Lymphocytes % % Lymphocytes % (Manual) % Monocytes % % Monocytes % (Manual) % Eosinophils % % Eosinophils % (Manual) % Basophils % % Immature Gran # X 10*3/uL Neutrophils # (1.80-7.70) X 10*3/uL Neutrophils # (Manual) (1.3-7.7) k/uL Lymphocytes # (0.90-5.00) X 10*3/uL Lymphocytes # (Manual) (1.0-4.8) k/uL Monocytes # (0.20-1.00) X 10*3/uL Monocytes # (Manual) (0-1.0) k/uL Eosinophils # (0.04-0.35) X 10*3/uL Eosinophils # (Manual) (0-0.7) k/uL Basophils # (0.00-0.10) X 10*3/uL Nucleated RBCs (0-0) /100 WBC NRBC/100 WBC Diff (0.00-0.01) X 10*3/uL Differential Comment Manual Slide Review Poikilocytosis (manual Anisocytosis Anisocytosis (manual) Ovalocytes PT (9.0-12.0) sec INR (<1.2) APTT (22.0-30.0) sec Sodium (137-145) mmol/L Potassium (3.5-5.1) mmol/L Chloride (98-107) mmol/L Carbon Dioxide (22-30) mmol/L Anion Gap mmol/L BUN (9-20) mg/dL Creatinine (0.66-1.25) mg/dL Est GFR (CKD-EPI) (>=60) Est GFR (CKD-EPI)AfAm (>60 ml/min/1.73 sqM) Est GFR (CKD-EPI)NonAf (>60 ml/min/1.73 sqM) BUN/Creatinine Ratio (12.00-20.00) Ratio Glucose (74-99) mg/dL POC Glucose (mg/dL) 178 H 84 118 H (70-110) mg/dL POC Glu [employer] Developer Mian Akbar, Milena Dong [address] Glu mg/dL mg/dL Hemoglobin A1c (<=6.0) % Plasma Lactic Acid Allan (0.7-2.0) mmol/L Calcium (8.4-10.2) mg/dL Phosphorus (2.5-4.5) mg/dL Magnesium (1.6-2.3) mg/dL Total Bilirubin (0.2-1.3) mg/dL AST (17-59) U/L ALT (4-49) U/L Alkaline Phosphatase (38-126) U/L Troponin I (0.000-0.034) ng/mL NT-Pro-B Natriuret Pep pg/mL Total Protein (6.3-8.2) g/dL Albumin (3.5-5.0) g/dL Globulin (1.6-3.3) d/dL Albumin/Globulin Ratio (1.60-3.17) Ratio TSH (0.465-4.680) mIU/L Free T4 (0.78-2.19) ng/dL Urine Color Urine Appearance (Clear) Urine pH (5.0-8.0) Ur Specific [place] (1.001-1.035) Urine Protein (Negative) Urine Glucose (UA) (Negative) Urine Ketones (Negative) Urine Blood (Negative) Urine Nitrite (Negative) Urine Bilirubin (Negative) Urine Urobilinogen (<2.0) mg/dL Ur Leukocyte Esterase (Negative) Vancomycin Trough ug/mL 07/08/23 07/08/23 07/08/23 Range/Units 01:11 02:34 05:57 WBC (3.8-10.6) k/uL RBC (4.30-5.90) m/uL Hgb (13.0-17.5) gm/dL Hct (39.0-53.0) % MCV (80.0-100.0) fL MCH (25.0-35.0) pg MCHC (31.0-37.0) g/dL RDW (11.5-15.5) % Plt Count (150-450) k/uL MPV Immature Gran % (Auto) % Absolute Nucleated RBC % Neutrophils % % Neutrophils % (Manual) % Band Neuts % (Manual) % Lymphocytes % % Lymphocytes % (Manual) % Monocytes % % Monocytes % (Manual) % Eosinophils % % Eosinophils % (Manual) % Basophils % % Immature Gran # X 10*3/uL Neutrophils # (1.80-7.70) X 10*3/uL Neutrophils # (Manual) (1.3-7.7) k/uL Lymphocytes # (0.90-5.00) X 10*3/uL Lymphocytes # (Manual) (1.0-4.8) k/uL Monocytes # (0.20-1.00) X 10*3/uL Monocytes # (Manual) (0-1.0) k/uL Eosinophils # (0.04-0.35) X 10*3/uL Eosinophils # (Manual) (0-0.7) k/uL Basophils # (0.00-0.10) X 10*3/uL Nucleated RBCs (0-0) /100 WBC NRBC/100 WBC Diff (0.00-0.01) X 10*3/uL Differential Comment Manual Slide Review Poikilocytosis (manual Anisocytosis Anisocytosis (manual) Ovalocytes PT (9.0-12.0) sec INR (<1.2) APTT (22.0-30.0) sec Sodium 136 L (137-145) mmol/L Potassium 5.0 (3.5-5.1) mmol/L Chloride 106 (98-107) mmol/L Carbon Dioxide 25 (22-30) mmol/L Anion Gap 5 mmol/L BUN 14 (9-20) mg/dL Creatinine 0.91 (0.66-1.25) mg/dL Est GFR (CKD-EPI) (>=60) Est GFR (CKD-EPI)AfAm >90 (>60 ml/min/1.73 sqM) Est GFR (CKD-EPI)NonAf >90 (>60 ml/min/1.73 sqM) BUN/Creatinine Ratio (12.00-20.00) Ratio Glucose 321 H (74-99) mg/dL POC Glucose (mg/dL) 406 H (70-110) mg/dL POC Glu [employer] Developer ID Rocco Chaun [address] Glu mg/dL mg/dL Hemoglobin A1c (<=6.0) % Plasma Lactic Acid Allan (0.7-2.0) mmol/L Calcium 8.4 (8.4-10.2) mg/dL Phosphorus (2.5-4.5) mg/dL Magnesium (1.6-2.3) mg/dL Total Bilirubin (0.2-1.3) mg/dL AST (17-59) U/L ALT (4-49) U/L Alkaline Phosphatase (38-126) U/L Troponin I (0.000-0.034) ng/mL NT-Pro-B Natriuret Pep pg/mL Total Protein (6.3-8.2) g/dL Albumin (3.5-5.0) g/dL Globulin (1.6-3.3) d/dL Albumin/Globulin Ratio (1.60-3.17) Ratio TSH (0.465-4.680) mIU/L Free T4 (0.78-2.19) ng/dL Urine Color Urine Appearance (Clear) Urine pH (5.0-8.0) Ur Specific [place] (1.001-1.035) Urine Protein (Negative) Urine Glucose (UA) (Negative) Urine Ketones (Negative) Urine Blood (Negative) Urine Nitrite (Negative) Urine Bilirubin (Negative) Urine Urobilinogen (<2.0) mg/dL Ur Leukocyte Esterase (Negative) Vancomycin Trough 16.0 ug/mL 07/08/23 07/08/23 07/08/23 Range/Units 05:57 07:23 12:12 WBC 6.11 (3.8-10.6) k/uL RBC 2.72 L (4.30-5.90) m/uL Hgb 8.3 L (13.0-17.5) gm/dL Hct 25.5 L (39.0-53.0) % MCV 93.8 (80.0-100.0) fL MCH 30.5 (25.0-35.0) pg MCHC 32.5 (31.0-37.0) g/dL RDW 16.6 H (11.5-15.5) % Plt Count 292 (150-450) k/uL MPV 9.2 L Immature Gran % (Auto) 1.00 % Absolute Nucleated RBC 0 % Neutrophils % 64.8 % Neutrophils % (Manual) % Band Neuts % (Manual) % Lymphocytes % 17.8 % Lymphocytes % (Manual) % Monocytes % 14.4 % Monocytes % (Manual) % Eosinophils % 1.5 % Eosinophils % (Manual) % Basophils % 0.5 % Immature Gran # 0.06 X 10*3/uL Neutrophils # 3.96 (1.80-7.70) X 10*3/uL Neutrophils # (Manual) (1.3-7.7) k/uL Lymphocytes # 1.09 (0.90-5.00) X 10*3/uL Lymphocytes # (Manual) (1.0-4.8) k/uL Monocytes # 0.88 (0.20-1.00) X 10*3/uL Monocytes # (Manual) (0-1.0) k/uL Eosinophils # 0.09 (0.04-0.35) X 10*3/uL Eosinophils # (Manual) (0-0.7) k/uL Basophils # 0.03 (0.00-0.10) X 10*3/uL Nucleated RBCs (0-0) /100 WBC NRBC/100 WBC Diff 0 (0.00-0.01) X 10*3/uL Differential Comment Manual Slide Review Poikilocytosis (manual Anisocytosis Anisocytosis (manual) Ovalocytes PT (9.0-12.0) sec INR (<1.2) APTT (22.0-30.0) sec Sodium (137-145) mmol/L Potassium (3.5-5.1) mmol/L Chloride (98-107) mmol/L Carbon Dioxide (22-30) mmol/L Anion Gap mmol/L BUN (9-20) mg/dL Creatinine (0.66-1.25) mg/dL Est GFR (CKD-EPI) (>=60) Est GFR (CKD-EPI)AfAm (>60 ml/min/1.73 sqM) Est GFR (CKD-EPI)NonAf (>60 ml/min/1.73 sqM) BUN/Creatinine Ratio (12.00-20.00) Ratio Glucose (74-99) mg/dL POC Glucose (mg/dL) 295 H 208 H (70-110) mg/dL POC Glu [employer] Developer Juliana Ledesma Jessica [address] Glu mg/dL mg/dL Hemoglobin A1c (<=6.0) % Plasma Lactic Acid Allan (0.7-2.0) mmol/L Calcium (8.4-10.2) mg/dL Phosphorus (2.5-4.5) mg/dL Magnesium (1.6-2.3) mg/dL Total Bilirubin (0.2-1.3) mg/dL AST (17-59) U/L ALT (4-49) U/L Alkaline Phosphatase (38-126) U/L Troponin I (0.000-0.034) ng/mL NT-Pro-B Natriuret Pep pg/mL Total Protein (6.3-8.2) g/dL Albumin (3.5-5.0) g/dL Globulin (1.6-3.3) d/dL Albumin/Globulin Ratio (1.60-3.17) Ratio TSH (0.465-4.680) mIU/L Free T4 (0.78-2.19) ng/dL Urine Color Urine Appearance (Clear) Urine pH (5.0-8.0) Ur Specific [place] (1.001-1.035) Urine Protein (Negative) Urine Glucose (UA) (Negative) Urine Ketones (Negative) Urine Blood (Negative) Urine Nitrite (Negative) Urine Bilirubin (Negative) Urine Urobilinogen (<2.0) mg/dL Ur Leukocyte Esterase (Negative) Vancomycin Trough ug/mL - EKG Data -: EKG Interpreted by Me - Radiology Data Radiology results: report reviewed (Ultrasound results showing mild abscess drainage and collection), image reviewed Disposition Clinical Impression: COPD (chronic obstructive pulmonary disease), Dehydration, Weakness, Abdominal wall cellulitis, Abscess of abdominal wall, Insulin dependent diabetes mellitus Disposition: ADMITTED IP TO THIS HOSP Condition: Good Is patient prescribed a controlled substance at d/c from ED?: No Time of Disposition: 00:30
[2023-07-05 22:13] LABS: ALT 17 U/L (4-49); AST 30 U/L (17-59); African American GFR (CKD) >90 (>60 ml/min/1.73 sqM); Albumin 3.2 g/dL (3.5-5.0); Alkaline Phosphatase 153 U/L (38-126); Anion Gap 8 mmol/L; Blood Urea Nitrogen 12 mg/dL (9-20); Calcium 8.5 mg/dL (8.4-10.2); Carbon Dioxide 24 mmol/L (22-30); Chloride 104 mmol/L (98-107); Glucose 158 mg/dL (74-99); INR 0.9 (<1.2); Magnesium 1.6 mg/dL (1.6-2.3); Non-African American GFR(CKD) >90 (>60 ml/min/1.73 sqM); Partial Thromboplastin Time 25.5 sec (22.0-30.0); Phosphorus 3.2 mg/dL (2.5-4.5); Potassium 4.3 mmol/L (3.5-5.1); Prothrombin Time 9.9 sec (9.0-12.0); Sodium 136 mmol/L (137-145); Total Bilirubin 0.4 mg/dL (0.2-1.3); Total Protein 6.1 g/dL (6.3-8.2)
[2023-07-05 22:16] LABS: Anisocytosis Slight; HCT 24.8 % (39.0-53.0); HGB 8.8 gm/dL (13.0-17.5); MCH 30.7 pg (25.0-35.0); MCHC 35.5 g/dL (31.0-37.0); MCV 86.6 fL (80.0-100.0); Platelet Count 255 k/uL (150-450); RBC 2.87 m/uL (4.30-5.90); WBC 3.7 k/uL (3.8-10.6)
[2023-07-05 22:21] LABS: NT-Pro-B-Type Natriuretic Pept 218 pg/mL
[2023-07-05 22:46] LABS: Band Neutrophils % 5 %; Eosinophils # (M) 0.07 k/uL (0-0.7); Lymphocytes # (M) 1.04 k/uL (1.0-4.8); Monocytes # (M) 0.26 k/uL (0-1.0); Neutrophils % (M) 58 %; Nucleated Red Blood Cells 0 /100 WBC (0-0); Total Cells Counted 100
[2023-07-05 22:47] LABS: Anisocytosis (M) Present; Ovalocytes Present; Poikilocytosis (M) Present
[2023-07-05 23:36] LABS: Appearance,Urine Clear (Clear); Bilirubin,Urine Negative (Negative); Blood,Urine Negative (Negative); Glucose,Urine (UA) Trace (Negative); Ketones,Urine Negative (Negative); Leukocyte Esterase,Urine Negative (Negative); Nitrite,Urine Negative (Negative); PH, Urine 5.5 (5.0-8.0); Protein,Urine Negative (Negative); Specific Gravity,Urine 1.005 (1.001-1.035); Urobilinogen,Urine <2.0 mg/dL (<2.0)
[2023-07-05 23:39] LABS: Color,Urine Yellow
[2023-07-06] MEDS ORDERED: cefTRIAXone IN SWFI 1,000 MG/10 ML SYRINGE IVP STA (00:26)
[2023-07-06] MEDS ORDERED: VANCOMYCIN IV PER PHARMACY 1 EACH MISC MISCELLANE PRN (00:29)
[2023-07-06] MEDS ORDERED: NALOXONE 0.4 MG/ML 1 ML VIAL IV PRN (00:33)
[2023-07-06] MEDS: SODIUM CHLORIDE 0.9% 1,000 ML IV SCH ×2 (00:47→10:22)
[2023-07-06 00:56] LABS: Glucose,Whole Blood 71 mg/dL (70-110)
--- NOTE | 2023-07-06 01:18 | US ---
EXAM: US Abdomen Limited, Right Upper Quadrant CLINICAL HISTORY: ITS.REASON US Reason: abscessRflank TECHNIQUE: Real-time ultrasound of the right upper quadrant with image documentation. COMPARISON: No relevant prior studies available. FINDINGS: Edematous tissue seen. Small hypoechoic area, possible tiny fluid collection: 0.4 x 0.3 x 0.4 cm. IMPRESSION: Edematous tissue seen. Small hypoechoic area, possible tiny fluid collection: 0.4 x 0.3 x 0.4 cm.
[2023-07-06] MEDS ORDERED: VANCOMYCIN 1,250 MG in SODIUM CHLORIDE 0.9% 250 ML IVPB ONE (02:00)
[2023-07-06] MEDS: MORPHINE SULFATE 4 MG/ML SYRINGE IV PRN ×2 (04:08→17:12)
[2023-07-06 08:00] LABS: Glucose,Whole Blood 44 mg/dL (70-110)
[2023-07-06 08:00] LABS: Glucose,Whole Blood 44 mg/dL (70-110)
[2023-07-06] MEDS ORDERED: DEXTROSE 50% SYRINGE 50 ML IVP PRN (08:05)
[2023-07-06 08:21] LABS: Glucose,Whole Blood 36 mg/dL (70-110)
[2023-07-06 08:22] LABS: Glucose,Whole Blood 42 mg/dL (70-110)
[2023-07-06 08:44] LABS: Glucose,Whole Blood 37 mg/dL (70-110)
[2023-07-06] MEDS: DEXTROSE 50% SYRINGE 50 ML IVP PRN (08:48)
[2023-07-06 09:07] LABS: Glucose,Whole Blood 101 mg/dL (70-110)
[2023-07-06] MEDS ORDERED: Magnesium Replacement Protocol 1 EACH MISC MISCELLANE PRN (11:31)
[2023-07-06] MEDS: CLOPIDOGREL 75 MG TAB PO SCH (12:13)
[2023-07-06] MEDS: CHOLECALCIFEROL 25 MCG (1000 IU) TABLET PO SCH (12:13)
[2023-07-06] MEDS: MULTIVITAMINS, THERA 1 EACH TAB PO SCH (12:13)
[2023-07-06] MEDS: METOPROLOL SUCCINATE (ER) 50 MG TAB.ER.24H PO SCH ×2 (12:13→20:29)
[2023-07-06] MEDS: MEMANTINE 10 MG TAB PO SCH (12:18)
[2023-07-06] MEDS: MAGNESIUM SULFATE-D5W PMX 1 GM in DEXTROSE/WATER 1 100ML.BAG IVPB SCH ×2 (12:18→13:09)
[2023-07-06 12:40] LABS: Glucose,Whole Blood 246 mg/dL (70-110)
[2023-07-06] MEDS: INSULIN ASPART (NovoLOG) 100 UNIT/ML VIAL SQ SCH ×3 (12:51→20:30)
[2023-07-06] MEDS: HYDROcodone/APAP 5-325MG 1 EACH TAB PO PRN ×2 (13:08→20:29)
[2023-07-06] MEDS: VANCOMYCIN 1,000 MG in SODIUM CHLORIDE 0.9% 250 ML IVPB SCH (14:33)
--- NOTE | 2023-07-06 16:10 | P.CONS ---
History of Present Illness - Reason for Consult Consult date: 07/06/23 Metasatic lung cancer - Chief Complaint Weakness, right flank swelling - History of Present Illness Mr. Chilel is a 62-year-old gentleman with a past medical history significant for metastatic adenocarcinoma of the lung status post cycle 4 carboplatin/Alimta/pembrolizumab on 06/15/2023 presenting with swelling of the right flank. He noticed increased discomfort in the right flank along with swel ling where his insulin pump was over the past 1 to 2 days. This was associated with increased purulent discharge from the site of the pump insertion in the skin with redness and mild tenderness to palpation. Blood glucose was in the 400s and was having associated fatigue with this. He denied any fevers, chills, cough, dyspnea, rash, or persistent diarrhea. Given his signs and symptoms, he presented to the ED for additional management recommendations In the ED, he was hemodynamically stable and afebrile. He is on 3 L nasal cannula, which is his baseline oxygen requirement. 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 CBC noted WBC 3.7 (ANC 2.3), hemoglobin 8.8, platelets 255. CMP revealed no acute metabolic abnormalities. Ultrasound of the abdominal wall noted tiny fluid collection in the right flank measuring 0.4 x 0.3 x 0.4 cm. He received a Comycin/ceftriaxone in the ED along with 1 5 L bolus normal saline. He was admitted to internal medicine for additional management recommendations. He notes slight improvement in fatigue since admission with no change in the right flank abscess. He denies any additional signs or symptoms. Review of Systems 14 point review of systems conducted pertinent positives and negatives as noted per HPI. Past Medical History Past Medical History: Coronary Artery Disease (CAD), Cancer, Heart Failure, COPD, Diabetes Mellitus, GI Bleed, Hyperlipidemia, Hypertension, Osteoarthritis (OA), Pneumonia, Pulmonary Embolus (PE), Renal Disease, Respiratory Disorder, Vascular Disorder Additional Past Medical History / Comment(s): hx. multiple gastric ulcers, hx of chronic respiratory failure-intubated and ventilated,Pulmonary fibrosis, interstitial lung disease, CHF-chronic diastolic dysfunction, O2 dependence with O2 at 3L/NC ATC, severe PVD, chronic renal failure per old medical hx but pt denies, chronic pain syndrome, migraines, pancreatitis, DJD, neuropathy juliana ateral upper and lower extremities, gout, tendonitis R arm, carpal tunnel bilaterally. 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 Date of Last Stent Placement:: 1999,2021 Past Psychological History: Anxiety, Depression Additional Psychological History / Comment(s): He is O2 dependent at 3L/NC ATC. He has a cane and walker he uses if needed. Smoking Status: Former smoker Past Alcohol Use History: None Reported Additional Past Alcohol Use History / Comment(s): pt states he quit smoking 2022 Past Drug Use History: None Reported - Past Family History Father History Unknown: Yes Family Medical History: Myocardial Infarction (CO) Additional Family Medical History / Comment(s): due to heart attack Mother History Unknown: Yes Family Medical History: Cancer Additional Family Medical History / Comment(s): LUNG CANCER Medications and Allergies Home Medications Medication Instructions Recorded Confirmed Type INSULIN LISPRO (For Pump) [humaLOG 0.01 units SQ-PUMP CONTINUOUS 10/29/16 07/06/23 History (For Pump)] Aspirin EC [Ecotrin Low Dose] 81 mg PO DAILY #30 tab 03/29/21 07/06/23 Rx Atorvastatin [Lipitor] 80 mg PO HS #90 tab 03/29/21 07/06/23 Rx Metoprolol Succinate (ER) [Toprol 25 mg PO DAILY 10/05/22 07/06/23 History XL] Clopidogrel [Plavix] 75 mg PO DAILY #90 tab 10/07/22 07/06/23 Rx Multivitamins, Thera [Multivitamin 1 tab PO DAILY 12/16/22 07/06/23 History (formulary)] Memantine HCl 10 mg PO BID 04/01/23 07/06/23 History Acetaminophen Tab [Tylenol] 325 mg PO BID 07/06/23 07/06/23 History Cholecalciferol [Vitamin D3 (25 50 mcg PO DAILY 07/06/23 07/06/23 History Mcg = 1000 Iu)] Folic Acid 1 mg PO DAILY 07/06/23 07/06/23 History Lidocaine-Prilocaine Cream [Emla 1 applic TOPICAL DIRECTED PRN 07/06/23 07/06/23 History Cream 2.5%/2.5%] OLANZapine [ZyPREXA] 2.5 mg PO DIRECTED 07/06/23 07/06/23 History Ondansetron [Zofran] 4 mg PO Q4H PRN 07/06/23 07/06/23 History Allergies Allergy/AdvReac Type Severity Reaction Status Date / Time No Known Allergies Allergy Verified 07/06/23 13:38 Physical Exam Vitals: Vital Signs Temp Pulse Pulse Pulse Resp BP BP 07/06/23 12:36 97.4 F L 88 17 147/80 07/06/23 07:55 97.6 F 92 18 169/85 07/06/23 06:00 84 14 159/94 07/06/23 05:00 84 16 152/87 07/06/23 04:00 82 16 120/76 07/06/23 03:00 80 16 132/77 07/06/23 02:00 80 14 144/85 07/06/23 01:00 85 18 160/86 07/06/23 00:00 79 18 157/81 07/05/23 23:00 78 16 144/78 07/05/23 22:00 80 16 120/76 07/05/23 21:33 80 16 129/78 07/05/23 21:00 87 16 124/88 07/05/23 20:30 97.7 F 97 20 96/64 Pulse Ox 07/06/23 12:36 100 07/06/23 07:55 100 07/06/23 06:00 100 07/06/23 05:00 100 07/06/23 04:00 100 07/06/23 03:00 100 07/06/23 02:00 100 07/06/23 01:00 100 07/06/23 00:00 07/05/23 23:00 100 07/05/23 22:00 100 07/05/23 21:33 100 07/05/23 21:00 100 07/05/23 20:30 100 Intake and Output 07/06/23 07/06/23 07/06/23 06:59 14:59 22:59 Output Total 500 Balance -500 Output: Urine 500 Other: Voiding Method Toilet Weight 65.771 kg - Constitutional General appearance: cooperative, no acute distress - EENT Eyes: EOMI - Respiratory Respiratory: bilateral: other ( Inspiratory crackles in the bilateral lung johnson) - Cardiovascular Rhythm: regular - Gastrointestinal General gastrointestinal: no distended, soft - Integumentary Integumentary: pale, no rash - Neurologic Neurologic: CNII-XII intact Results CBC & Chem 7: 07/05/23 21:52 07/05/23 21:52 Labs: Abnormal Lab Results - Last 24 Hours (Table) 07/05/23 07/05/23 07/05/23 Range/Units 21:52 21:52 21:52 WBC 3.7 L (3.8-10.6) k/uL RBC 2.87 L (4.30-5.90) m/uL Hgb 8.8 L (13.0-17.5) gm/dL Hct 24.8 L (39.0-53.0) % RDW 17.0 H (11.5-15.5) % Sodium 136 L (137-145) mmol/L Glucose 158 H (74-99) mg/dL POC Glucose (mg/dL) (70-110) mg/dL Alkaline Phosphatase 153 H (38-126) U/L Total Protein 6.1 L (6.3-8.2) g/dL Albumin 3.2 L (3.5-5.0) g/dL TSH 74.400 H (0.465-4.680) mIU/L Free T4 0.14 L (0.78-2.19) ng/dL Urine Glucose (UA) (Negative) 07/05/23 07/06/23 07/06/23 Range/Units 23:00 07:56 07:58 WBC (3.8-10.6) k/uL RBC (4.30-5.90) m/uL Hgb (13.0-17.5) gm/dL Hct (39.0-53.0) % RDW (11.5-15.5) % Sodium (137-145) mmol/L Glucose (74-99) mg/dL POC Glucose (mg/dL) 44 L 44 L (70-110) mg/dL Alkaline Phosphatase (38-126) U/L Total Protein (6.3-8.2) g/dL Albumin (3.5-5.0) g/dL TSH (0.465-4.680) mIU/L Free T4 (0.78-2.19) ng/dL Urine Glucose (UA) Trace H (Negative) 07/06/23 07/06/23 07/06/23 Range/Units 08:18 08:21 08:42 WBC (3.8-10.6) k/uL RBC (4.30-5.90) m/uL Hgb (13.0-17.5) gm/dL Hct (39.0-53.0) % RDW (11.5-15.5) % Sodium (137-145) mmol/L Glucose (74-99) mg/dL POC Glucose (mg/dL) 36 L 42 L 37 L (70-110) mg/dL Alkaline Phosphatase (38-126) U/L Total Protein (6.3-8.2) g/dL Albumin (3.5-5.0) g/dL TSH (0.465-4.680) mIU/L Free T4 (0.78-2.19) ng/dL Urine Glucose (UA) (Negative) 07/06/23 Range/Units 12:39 WBC (3.8-10.6) k/uL RBC (4.30-5.90) m/uL Hgb (13.0-17.5) gm/dL Hct (39.0-53.0) % RDW (11.5-15.5) % Sodium (137-145) mmol/L Glucose (74-99) mg/dL POC Glucose (mg/dL) 246 H (70-110) mg/dL Alkaline Phosphatase (38-126) U/L Total Protein (6.3-8.2) g/dL Albumin (3.5-5.0) g/dL TSH (0.465-4.680) mIU/L Free T4 (0.78-2.19) ng/dL Urine Glucose (UA) (Negative) Assessment and Plan (1) Adenocarcinoma of lung, stage 4 Current Visit: Yes Status: Chronic Code(s): C34.90 - MALIGNANT NEOPLASM OF UNSP PART OF UNSP BRONCHUS OR LUNG SNOMED Code(s): 816552159 (2) Abscess of abdominal wall Current Visit: Yes Status: Acute Code(s): L02.211 - CUTANEOUS ABSCESS OF ABDOMINAL WALL SNOMED Code(s): 40170866 Plan: #Right abdominal wall abscess -Area of tenderness with fluctuance and erythema noted on exam has developed over the past 1 to 2 days at the site of insulin pump injection associated with purulent discharge -He denies any fevers or chills -Abdominal ultrasound noting 0.4 x 0.3 x 0.4 cm collection of fluid in the right abdominal wall, which appears to be consistent with abscess -Agree with vancomycin/cefepime for broad-spectrum antibiotics -He may require incision and drainage of the site for definitive treatment #Metastatic adenocarcinoma of the lung -Completed cycle 4 of carboplatin/Alimta/Keytruda on 06/15/2023 -Per last clinic follow-up on 06/22/2023, it was recommended he receive at least 2-3 additional cycles of treatment, given his first 2 cycles and not contain carboplatin due to national chemotherapy shortage -This will be followed by repeat imaging to assess treatment response -Next cycle of treatment scheduled for 07/07/2023. This will be rescheduled given current right abdominal wall abscess -This will be delayed at least 1 week and potentially longer depending on definitive antibiotic regimen for treatment of the right abdominal wall abscess -We will arrange follow-up with [employer] following discharge to help definitively determine next cycle of treatment Samm Wayne MD
[2023-07-06] MEDS: ONDANSETRON 4 MG/2 ML VIAL IVP PRN (17:15)
[2023-07-06 17:29] LABS: Glucose,Whole Blood 382 mg/dL (70-110)
--- NOTE | 2023-07-06 18:56 | P.GSCN ---
History of Present Illness Consult date: 07/06/23 History of present illness: A small 2 cm carbuncles of the right flank. No active drainage. Area consistent with recent insulin pump. Recommend warm compress. Antibiotics. Past Medical History Past Medical History: Coronary Artery Disease (CAD), Cancer, Heart Failure, COPD, Diabetes Mellitus, GI Bleed, Hyperlipidemia, Hypertension, Osteoarthritis (OA), Pneumonia, Pulmonary Embolus (PE), Renal Disease, Respiratory Disorder, Vascular Disorder Additional Past Medical History / Comment(s): hx. multiple gastric ulcers, hx of chronic respiratory failure-intubated and ventilated,Pulmonary fibrosis, in terstitial lung disease, CHF-chronic diastolic dysfunction, O2 dependence with O2 at 3L/[place] ATC, severe PVD, chronic renal failure per old medical hx but pt denies, chronic pain syndrome, migraines, pancreatitis, DJD, neuropathy bilateral upper and lower extremities, gout, tendonitis R arm, carpal tunnel bilaterally. History of Any Multi-Drug Resistant Organisms: MRSA Year Discovered:: 03/15/17 MDRO Source:: genital Past Surgical History: Back Surgery, Cholecystectomy, Heart Catheterization, Hea rt Catheterization With Stent Additional Past Surgical History / Comment(s): EGD's, 07/26/15 IVC filter, BACK STIMULATORS x 2 -cervical and lumbar,FEMORAL BYPASS RT LEG X3, metal chips removed from bilateral eyes, right port Past Anesthesia/Blood Transfusion Reactions: No Reported Reaction Additional Past Anesthesia/Blood Transfusion Reaction / Comm: Pt has received blood transfusions without reaction. Date of Last Stent Placement:: Past Psychological History: Anxiety, Depression Additional Psychological History / Comment(s): He is O2 dependent at 3L/[place] ATC. He has a cane and walker he uses if needed. Smoking Status: Former smoker Past Alcohol Use History: None Reported Additional Past Alcohol Use History / Comment(s): pt states he quit smoking 2022 Past Drug Use History: None Reported - Past Family History Father History Unknown: Yes Family Medical History: Myocardial Infarction ([place]) Additional Family Medical History / Comment(s): due to heart attack Mother History Unknown: Yes Family Medical History: Cancer Additional Family Medical History / Comment(s): LUNG CANCER Medications and Allergies Home Medications Medication Instructions Recorded Confirmed Type INSULIN LISPRO (For Pump) [humaLOG 0.01 units SQ-PUMP CONTINUOUS 10/29/16 07/06/23 History (For Pump)] Aspirin EC [Ecotrin Low Dose] 81 mg PO DAILY #30 tab 03/29/21 07/06/23 Rx Atorvastatin [Lipitor] 80 mg PO HS #90 tab 03/29/21 07/06/23 Rx Metoprolol Succinate (ER) [Toprol 25 mg PO DAILY 10/05/22 07/06/23 History XL] Clopidogrel [Plavix] 75 mg PO DAILY #90 tab 10/07/22 07/06/23 Rx Multivitamins, Thera [Multivitamin 1 tab PO DAILY 12/16/22 07/06/23 History (formulary)] Memantine HCl 10 mg PO BID 04/01/23 07/06/23 History Acetaminophen Tab [Tylenol] 325 mg PO BID 07/06/23 07/06/23 History Cholecalciferol [Vitamin D3 (25 50 mcg PO DAILY 07/06/23 07/06/23 History Mcg = 1000 Iu)] Folic Acid 1 mg PO DAILY 07/06/23 07/06/23 History Lidocaine-Prilocaine Cream [Emla 1 applic TOPICAL DIRECTED PRN 07/06/23 07/06/23 History Cream 2.5%/2.5%] OLANZapine [ZyPREXA] 2.5 mg PO DIRECTED 07/06/23 07/06/23 History Ondansetron [Zofran] 4 mg PO Q4H PRN 07/06/23 07/06/23 History Allergies Allergy/AdvReac Type Severity Reaction Status Date / Time No Known Allergies Allergy Verified 07/06/23 13:38 Surgical - Exam Vital Signs Temp Pulse Resp BP Pulse Ox 97.7 F 97 20 96/64 100 07/05/23 20:30 07/05/23 20:30 07/05/23 20:30 07/05/23 20:30 07/05/23 20:30 Results - Labs 07/05/23 21:52 07/05/23 21:52 Abnormal Lab Results - Last 24 Hours (Table) 07/05/23 07/05/23 07/05/23 Range/Units 21:52 21:52 21:52 WBC 3.7 L (3.8-10.6) k/uL RBC 2.87 L (4.30-5.90) m/uL Hgb 8.8 L (13.0-17.5) gm/dL Hct 24.8 L (39.0-53.0) % RDW 17.0 H (11.5-15.5) % Sodium 136 L (137-145) mmol/L Glucose 158 H (74-99) mg/dL POC Glucose (mg/dL) (70-110) mg/dL Alkaline Phosphatase 153 H (38-126) U/L Total Protein 6.1 L (6.3-8.2) g/dL Albumin 3.2 L (3.5-5.0) g/dL TSH 74.400 H (0.465-4.680) mIU/L Free T4 0.14 L (0.78-2.19) ng/dL Urine Glucose (UA) (Negative) 07/05/23 07/06/23 07/06/23 Range/Units 23:00 07:56 07:58 WBC (3.8-10.6) k/uL RBC (4.30-5.90) m/uL Hgb (13.0-17.5) gm/dL Hct (39.0-53.0) % RDW (11.5-15.5) % Sodium (137-145) mmol/L Glucose (74-99) mg/dL POC Glucose (mg/dL) 44 L 44 L (70-110) mg/dL Alkaline Phosphatase (38-126) U/L Total Protein (6.3-8.2) g/dL Albumin (3.5-5.0) g/dL TSH (0.465-4.680) mIU/L Free T4 (0.78-2.19) ng/dL Urine Glucose (UA) Trace H (Negative) 07/06/23 07/06/23 07/06/23 Range/Units 08:18 08:21 08:42 WBC (3.8-10.6) k/uL RBC (4.30-5.90) m/uL Hgb (13.0-17.5) gm/dL Hct (39.0-53.0) % RDW (11.5-15.5) % Sodium (137-145) mmol/L Glucose (74-99) mg/dL POC Glucose (mg/dL) 36 L 42 L 37 L (70-110) mg/dL Alkaline Phosphatase (38-126) U/L Total Protein (6.3-8.2) g/dL Albumin (3.5-5.0) g/dL TSH (0.465-4.680) mIU/L Free T4 (0.78-2.19) ng/dL Urine Glucose (UA) (Negative) 07/06/23 07/06/23 Range/Units 12:39 17:27 WBC (3.8-10.6) k/uL RBC (4.30-5.90) m/uL Hgb (13.0-17.5) gm/dL Hct (39.0-53.0) % RDW (11.5-15.5) % Sodium (137-145) mmol/L Glucose (74-99) mg/dL POC Glucose (mg/dL) 246 H 382 H (70-110) mg/dL Alkaline Phosphatase (38-126) U/L Total Protein (6.3-8.2) g/dL Albumin (3.5-5.0) g/dL TSH (0.465-4.680) mIU/L Free T4 (0.78-2.19) ng/dL Urine Glucose (UA) (Negative) Diabetes panel 07/05/23 Range/Units 21:52 Sodium 136 L (137-145) mmol/L Potassium 4.3 (3.5-5.1) mmol/L Chloride 104 (98-107) mmol/L Carbon Dioxide 24 (22-30) mmol/L BUN 12 (9-20) mg/dL Creatinine 0.86 (0.66-1.25) mg/dL Glucose 158 H (74-99) mg/dL Calcium 8.5 (8.4-10.2) mg/dL AST 30 (17-59) U/L ALT 17 (4-49) U/L Alkaline Phosphatase 153 H (38-126) U/L Total Protein 6.1 L (6.3-8.2) g/dL Albumin 3.2 L (3.5-5.0) g/dL Thyroid panel 07/05/23 Range/Units 21:52 TSH 74.400 H (0.465-4.680) mIU/L Calcium panel 07/05/23 Range/Units 21:52 Calcium 8.5 (8.4-10.2) mg/dL Phosphorus 3.2 (2.5-4.5) mg/dL Albumin 3.2 L (3.5-5.0) g/dL Pituitary panel 07/05/23 Range/Units 21:52 Sodium 136 L (137-145) mmol/L Potassium 4.3 (3.5-5.1) mmol/L Chloride 104 (98-107) mmol/L Carbon Dioxide 24 (22-30) mmol/L BUN 12 (9-20) mg/dL Creatinine 0.86 (0.66-1.25) mg/dL Glucose 158 H (74-99) mg/dL Calcium 8.5 (8.4-10.2) mg/dL TSH 74.400 H (0.465-4.680) mIU/L Adrenal panel 07/05/23 Range/Units 21:52 Sodium 136 L (137-145) mmol/L Potassium 4.3 (3.5-5.1) mmol/L Chloride 104 (98-107) mmol/L Carbon Dioxide 24 (22-30) mmol/L BUN 12 (9-20) mg/dL Creatinine 0.86 (0.66-1.25) mg/dL Glucose 158 H (74-99) mg/dL Calcium 8.5 (8.4-10.2) mg/dL Total Bilirubin 0.4 (0.2-1.3) mg/dL AST 30 (17-59) U/L ALT 17 (4-49) U/L Alkaline Phosphatase 153 H (38-126) U/L Total Protein 6.1 L (6.3-8.2) g/dL Albumin 3.2 L (3.5-5.0) g/dL
[2023-07-06 20:26] LABS: Glucose,Whole Blood 329 mg/dL (70-110)
[2023-07-06] MEDS: ATORVASTATIN 80 MG TAB PO SCH (20:29)
--- NOTE | 2023-07-06 23:04 | P.HPIM ---
History of Present Illness H&P Date: 07/06/23 Chief Complaint: Generalized weakness and fatigue, wound infection Patient is a 62-year-old male with a known history of metastatic adenocarcinoma of the lung s/p cycle 4 on 06/15/2023, coronary artery disease history of stent placement, COPD on home oxygen 2 to 3 L via nasal cannula, diabetes type 2 on insulin pump, hypertension, osteoarthritis, history of PE, chronic CHF with diastolic dysfunction bilateral peripheral neuropathy migraine headaches, anxiety/depression prior history of smoking and other multiple medical problems presents to ER with complaints of swelling over the left flank region where his insulin pump was placed previously. Patient has been having increased swelling for the past 1 to 2 days and increased purulent discharge and pain. Denies any fever or chills. No cough or sputum production. Patient is also complaining of generalized weakness and fatigue. Patient was also found to have elevated blood sugars greater than 400 in the ER. EKG showed sinus rhythm. Laboratory data showed WBC 3.7 hemoglobin 8.8 and platelets 255 Sodium 136 potassium 4.3 chloride 104 bicarb is 24 BUN 12 and creatinine 0.86 and blood sugar is 158. Alk phos 153 proBNP 218 TSH 74.4 and free T4 level is 0.14. Review of Systems Constitutional: Patient denies any fever or chills . Generalized weakness and fatigue.. Abdomen: Patient denied any nausea or vomiting or abd. pain Cardiovascular: Patient denies any chest pain or short of breath no palpitations. Respiratory: patient denied any cough . no sputum production. No shortness of breath Neurologic: Patient denied any numbness or tingling headache. Musculoskeletal: Patient denies any complaints of joint swelling or deformity. Skin: Negative Psychiatric: Negative Endocrine: No heat or cold intolerance. No recent weight gain. Genitourinary: No dysuria or hematuria. All other 14 point ROS negative except the above Past Medical History Past Medical History: Coronary Artery Disease (CAD), Cancer, Heart Failure, COPD, Diabetes Mellitus, GI Bleed, Hyperlipidemia, Hypertension, Osteoarthritis (OA), Pneumonia, Pulmonary Embolus (PE), Renal Disease, Respiratory Disorder, Vascular Disorder Additional Past Medical History / Comment(s): hx. 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 History of Any Multi-Drug Resistant Organisms: MRSA Date of last positivie culture/infection: 03/15/17 MDRO Source:: genital Past Surgical History: Back Surgery, Cholecystectomy, Heart Catheterization, Heart Catheterization With Stent Additional Past Surgical History / Comment(s): EGD's, 07/26/15 IVC filter, BACK STIMULATORS x 2 -cervical and lumbar,FEMORAL BYPASS RT LEG X3, metal chips removed from bilateral eyes, right port Past Anesthesia/Blood Transfusion Reactions: No Reported Reaction Additional Past Anesthesia/Blood Transfusion Reaction / Comment(s): Pt has received blood transfusions without reaction. Date of Last Stent Placement:: Past Psychological History: Anxiety, Depression Additional Psychological History / Comment(s): He is O2 dependent at 3L/[place] ATC. He has a cane and walker he uses if needed. Smoking Status: Former smoker Past Alcohol Use History: None Reported Additional Past Alcohol Use History / Comment(s): pt states he quit smoking 2022 Past Drug Use History: None Reported - Past Family History Father History Unknown: Yes Family Medical History: Myocardial Infarction ([place]) Additional Family Medical History / Comment(s): due to heart attack Mother History Unknown: Yes Family Medical History: Cancer Additional Family Medical History / Comment(s): LUNG CANCER Medications and Allergies Home Medications Medication Instructions Recorded Confirmed Type INSULIN LISPRO (For Pump) [humaLOG 0.01 units SQ-PUMP CONTINUOUS 10/29/16 07/06/23 History (For Pump)] Aspirin EC [Ecotrin Low Dose] 81 mg PO DAILY #30 tab 03/29/21 07/06/23 Rx Atorvastatin [Lipitor] 80 mg PO HS #90 tab 03/29/21 07/06/23 Rx Metoprolol Succinate (ER) [Toprol 25 mg PO DAILY 10/05/22 07/06/23 History XL] Clopidogrel [Plavix] 75 mg PO DAILY #90 tab 10/07/22 07/06/23 Rx Multivitamins, Thera [Multivitamin 1 tab PO DAILY 12/16/22 07/06/23 History (formulary)] Memantine HCl 10 mg PO BID 04/01/23 07/06/23 History Acetaminophen Tab [Tylenol] 325 mg PO BID 07/06/23 07/06/23 History Cholecalciferol [Vitamin D3 (25 50 mcg PO DAILY 07/06/23 07/06/23 History Mcg = 1000 Iu)] Folic Acid 1 mg PO DAILY 07/06/23 07/06/23 History Lidocaine-Prilocaine Cream [Emla 1 applic TOPICAL DIRECTED PRN 07/06/23 07/06/23 History Cream 2.5%/2.5%] OLANZapine [ZyPREXA] 2.5 mg PO DIRECTED 07/06/23 07/06/23 History Ondansetron [Zofran] 4 mg PO Q4H PRN 07/06/23 07/06/23 History Allergies Allergy/AdvReac Type Severity Reaction Status Date / Time No Known Allergies Allergy Verified 07/06/23 13:38 Physical Exam Vitals: Vital Signs Temp Pulse Pulse Resp BP BP Pulse Ox 07/06/23 07:55 97.6 F 92 18 169/85 100 07/06/23 06:00 84 14 159/94 100 07/06/23 05:00 84 16 152/87 100 07/06/23 04:00 82 16 120/76 100 07/06/23 03:00 80 16 132/77 100 07/06/23 02:00 80 14 144/85 100 07/06/23 01:00 85 18 160/86 100 07/06/23 00:00 79 18 157/81 07/05/23 23:00 78 16 144/78 100 07/05/23 22:00 80 16 120/76 100 07/05/23 21:33 80 16 129/78 100 07/05/23 21:00 87 16 124/88 100 07/05/23 20:30 97.7 F 97 20 96/64 100 Intake and Output 07/05/23 07/06/23 07/06/23 22:59 06:59 14:59 Output Total 500 Balance -500 Output: Urine 500 Other: Voiding Method Toilet Weight 65.771 kg 65.771 kg PHYSICAL EXAMINATION: Patient is lying in the bed comfortably, no acute distress, awake alert and oriented.. HEENT: Normocephalic. Neck is supple. Pupils reactive. Nostrils clear. Oral cavity is moist. Neck reveals no JVD, carotid bruits, or thyromegaly. CHEST EXAMINATION: Trachea is central. Symmetrical expansion. Lung johnson clear to auscultation and percussion. CARDIAC: Normal S1, S2 with no gallops. No murmurs ABDOMEN: Soft. Bowel sounds present. Right lateral abdominal wall with indurated area 4 x 4 cm size with minimal purulent discharge. Tenderness and mild warmth.. No organomegaly. No abdominal bruits. Extremities: reveal no edema. No clubbing or cyanosis Neurologically awake, alert, oriented x3 with well-coordinated movements. No focal deficits noted Skin: No rash or skin lesions. Psychiatric: Coperative. Nonsuicidal, Musculoskeletal: No joint swelling or deformity. Normal range of motion. Results CBC & Chem 7: 07/05/23 21:52 07/05/23 21:52 Labs: Abnormal Lab Results - Last 24 Hours (Table) 07/05/23 07/05/23 07/05/23 Range/Units 21:52 21:52 23:00 WBC 3.7 L (3.8-10.6) k/uL RBC 2.87 L (4.30-5.90) m/uL Hgb 8.8 L (13.0-17.5) gm/dL Hct 24.8 L (39.0-53.0) % RDW 17.0 H (11.5-15.5) % Sodium 136 L (137-145) mmol/L Glucose 158 H (74-99) mg/dL POC Glucose (mg/dL) (70-110) mg/dL Alkaline Phosphatase 153 H (38-126) U/L Total Protein 6.1 L (6.3-8.2) g/dL Albumin 3.2 L (3.5-5.0) g/dL TSH 74.400 H (0.465-4.680) mIU/L Urine Glucose (UA) Trace H (Negative) 07/06/23 07/06/23 07/06/23 Range/Units 07:56 07:58 08:18 WBC (3.8-10.6) k/uL RBC (4.30-5.90) m/uL Hgb (13.0-17.5) gm/dL Hct (39.0-53.0) % RDW (11.5-15.5) % Sodium (137-145) mmol/L Glucose (74-99) mg/dL POC Glucose (mg/dL) 44 L 44 L 36 L (70-110) mg/dL Alkaline Phosphatase (38-126) U/L Total Protein (6.3-8.2) g/dL Albumin (3.5-5.0) g/dL TSH (0.465-4.680) mIU/L Urine Glucose (UA) (Negative) 07/06/23 07/06/23 07/06/23 Range/Units 08:21 08:42 12:39 WBC (3.8-10.6) k/uL RBC (4.30-5.90) m/uL Hgb (13.0-17.5) gm/dL Hct (39.0-53.0) % RDW (11.5-15.5) % Sodium (137-145) mmol/L Glucose (74-99) mg/dL POC Glucose (mg/dL) 42 L 37 L 246 H (70-110) mg/dL Alkaline Phosphatase (38-126) U/L Total Protein (6.3-8.2) g/dL Albumin (3.5-5.0) g/dL TSH (0.465-4.680) mIU/L Urine Glucose (UA) (Negative) Thrombosis Risk Factor Assmnt - DVT/VTE Prophylaxis DVT/VTE Prophylaxis: Pharmacologic Prophylaxis ordered - Choose All That Apply Any of the Below Risk Factors Present?: Yes Each Risk Factor Represents 2 Points: Age 61-74 years, Malignancy Thrombosis Risk Factor Assessment Total Risk Factor Score: 4 Thrombosis Risk Factor Assessment Level: Moderate Risk Assessment and Plan Assessment: Abdominal wall cellulitis with abscess at the insulin pump insertion site. 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 Bilateral lower EXTR peripheral neuropathy Anxiety/depression Prior history of smoking DVT prophylaxis with heparin subcu Plan: Patient will be continued on ceftriaxone was given a dose of vancomycin in the ER. Infect disease and general surgery was consulted. For possible IND. Continue with home medications and pain management and continue with insulin pump. Patient will be started on levothyroxine 75 mcg daily and follow-up TSH and free T4 level in the next 4 to 6 weeks. Follow-up closely. Time with Patient: Greater than 30
--- NOTE | 2023-07-06 23:33 | P.CONS ---
History of Present Illness - Reason for Consult Consult date: 07/06/23 Abdominal cellulitis, abscess near insulin pump site Requesting physician: Juliana Currie - Chief Complaint Abdominal pain and swelling x few days - History of Present Illness Patient is a 62-year-old male with a past medical history significant for diabetes mellitus patient did have a insulin pump for management of his underlying diabetes patient did develop swelling redness at the insulin pump needle insertion site on right lower abdominal area about 2 days ago that has gradually increased in size becoming more swollen red painful patient describes the pain to be more of a dull aching to throbbing 5-6 out of 10 no radiation and the patient mentions some purulent drainage from the area patient denies high- grade fever did have some chills and a fever has been recorded on presentation to the hospital patient did have a white count of 3.7 creatinine was 0.86 and liver exams are normal urine was negative patient did have abdominal ultrasound small hypoechoic area possible tiny fluid collection with concern for abscess healthy needle site patient was started on Rocephin and vancomycin infectious disease was consulted for further management of antibiotic therapy Review of Systems Positive point and negatives has been mentioned in the HPI, complete review of systems was performed and all other systems are negative Past Medical History Past Medical History: Coronary Artery Disease (CAD), Cancer, Heart Failure, COPD, Diabetes Mellitus, GI Bleed, Hyperlipidemia, Hypertension, Osteoarthritis (OA), Pneumonia, Pulmonary Embolus (PE), Renal Disease, Respiratory Disorder, Vascular Disorder Additional Past Medical History / Comment(s): hx. multiple gastric ulcers, hx of chronic respiratory failure-intubated and ventilated,Pulmonary fibrosis, interstitial lung disease, CHF-chronic diastolic dysfunction, O2 dependence with O2 at 3L/NC ATC, severe PVD, chronic renal failure per old medical hx but pt denies, chronic pain syndrome, migraines, pancreatitis, DJD, neuropathy bilateral upper and lower extremities, gout, tendonitis R arm, carpal tunnel juliana aterally. 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 Date of Last Stent Placement:: Past Psychological History: Anxiety, Depression Additional Psychological History / Comment(s): He is O2 dependent at 3L/NC ATC. He has a cane and walker he uses if needed. Smoking Status: Former smoker Past Alcohol Use History: None Reported Additional Past Alcohol Use History / Comment(s): pt states he quit smoking 2022 Past Drug Use History: None Reported - Past Family History Father History Unknown: Yes Family Medical History: Myocardial Infarction (MA) Additional Family Medical History / Comment(s): due to heart attack Mother History Unknown: Yes Family Medical History: Cancer Additional Family Medical History / Comment(s): LUNG CANCER Medications and Allergies Home Medications Medication Instructions Recorded Confirmed Type INSULIN LISPRO (For Pump) [humaLOG 0.01 units SQ-PUMP CONTINUOUS 10/29/16 07/06/23 History (For Pump)] Aspirin EC [Ecotrin Low Dose] 81 mg PO DAILY #30 tab 03/29/21 07/06/23 Rx Atorvastatin [Lipitor] 80 mg PO HS #90 tab 03/29/21 07/06/23 Rx Metoprolol Succinate (ER) [Toprol 25 mg PO DAILY 10/05/22 07/06/23 History XL] Clopidogrel [Plavix] 75 mg PO DAILY #90 tab 10/07/22 07/06/23 Rx Multivitamins, Thera [Multivitamin 1 tab PO DAILY 12/16/22 07/06/23 History (formulary)] Memantine HCl 10 mg PO BID 04/01/23 07/06/23 History Acetaminophen Tab [Tylenol] 325 mg PO BID 07/06/23 07/06/23 History Cholecalciferol [Vitamin D3 (25 50 mcg PO DAILY 07/06/23 07/06/23 History Mcg = 1000 Iu)] Folic Acid 1 mg PO DAILY 07/06/23 07/06/23 History Lidocaine-Prilocaine Cream [Emla 1 applic TOPICAL DIRECTED PRN 07/06/23 07/06/23 History Cream 2.5%/2.5%] Ondansetron [Zofran] 4 mg PO Q4H PRN 07/06/23 07/06/23 History Amoxic-Pot Clav 875-125Mg 1 tab PO Q12HR 10 Days #20 tab 07/10/23 Rx [Augmentin 875-125] Doxycycline [Vibramycin] 100 mg PO BID 10 Days #20 cap 07/10/23 Rx HYDROcodone/APAP 5-325MG [[place] 1 each PO Q6HR PRN #6 tab 07/10/23 Rx 5-325] Levothyroxine Sodium [Synthroid] 75 mcg PO DAILY@0630 30 Days #30 07/10/23 Rx tab Megestrol [Megace] 40 mg PO DAILY 30 Days #30 tablet 07/10/23 Rx Allergies Allergy/AdvReac Type Severity Reaction Status Date / Time No Known Allergies Allergy Verified 07/06/23 13:38 Physical Exam Vitals: Vital Signs Temp Pulse Pulse Resp BP BP Pulse Ox 07/06/23 07:55 97.6 F 92 18 169/85 100 07/06/23 06:00 84 14 159/94 100 07/06/23 05:00 84 16 152/87 100 07/06/23 04:00 82 16 120/76 100 07/06/23 03:00 80 16 132/77 100 07/06/23 02:00 80 14 144/85 100 07/06/23 01:00 85 18 160/86 100 07/06/23 00:00 79 18 157/81 07/05/23 23:00 78 16 144/78 100 07/05/23 22:00 80 16 120/76 100 07/05/23 21:33 80 16 129/78 100 07/05/23 21:00 87 16 124/88 100 07/05/23 20:30 97.7 F 97 20 96/64 100 Intake and Output 07/05/23 07/06/23 07/06/23 22:59 06:59 14:59 Output Total 500 Balance -500 Output: Urine 500 Other: Voiding Method Toilet Weight 65.771 kg 65.771 kg GENERAL DESCRIPTION: Middle-aged male lying in bed, no distress. No tachypnea or accessory muscle of respiration use. HEENT: Shows Pallor , no scleral icterus. Oral mucous membrane is dry. No pharyngeal erythema or thrush NECK: Trachea central, no thyromegaly. LUNGS: Unlabored breathing. Clear to auscultation anteriorly. No wheeze or crackle. HEART: S1, S2, regular rate and rhythm. No loud murmur ABDOMEN: Soft, no tenderness , right lower abdominal wound did have an area of induration no fluctuation or drainage was noticed EXTREMITIES: No edema of feet. SKIN: No rash, no masses palpable. NEUROLOGICAL: The patient is awake, alert, oriented x3, mood and affect normal. Results CBC & Chem 7: 07/10/23 15:29 07/10/23 15:29 Labs: Abnormal Lab Results - Last 24 Hours (Table) 07/05/23 07/05/23 07/05/23 Range/Units 21:52 21:52 23:00 WBC 3.7 L (3.8-10.6) k/uL RBC 2.87 L (4.30-5.90) m/uL Hgb 8.8 L (13.0-17.5) gm/dL Hct 24.8 L (39.0-53.0) % RDW 17.0 H (11.5-15.5) % Sodium 136 L (137-145) mmol/L Glucose 158 H (74-99) mg/dL POC Glucose (mg/dL) (70-110) mg/dL Alkaline Phosphatase 153 H (38-126) U/L Total Protein 6.1 L (6.3-8.2) g/dL Albumin 3.2 L (3.5-5.0) g/dL TSH 74.400 H (0.465-4.680) mIU/L Urine Glucose (UA) Trace H (Negative) 07/06/23 07/06/23 07/06/23 Range/Units 07:56 07:58 08:18 WBC (3.8-10.6) k/uL RBC (4.30-5.90) m/uL Hgb (13.0-17.5) gm/dL Hct (39.0-53.0) % RDW (11.5-15.5) % Sodium (137-145) mmol/L Glucose (74-99) mg/dL POC Glucose (mg/dL) 44 L 44 L 36 L (70-110) mg/dL Alkaline Phosphatase (38-126) U/L Total Protein (6.3-8.2) g/dL Albumin (3.5-5.0) g/dL TSH (0.465-4.680) mIU/L Urine Glucose (UA) (Negative) 07/06/23 07/06/23 07/06/23 Range/Units 08:21 08:42 12:39 WBC (3.8-10.6) k/uL RBC (4.30-5.90) m/uL Hgb (13.0-17.5) gm/dL Hct (39.0-53.0) % RDW (11.5-15.5) % Sodium (137-145) mmol/L Glucose (74-99) mg/dL POC Glucose (mg/dL) 42 L 37 L 246 H (70-110) mg/dL Alkaline Phosphatase (38-126) U/L Total Protein (6.3-8.2) g/dL Albumin (3.5-5.0) g/dL TSH (0.465-4.680) mIU/L Urine Glucose (UA) (Negative) Assessment and Plan (1) Abdominal wall cellulitis Current Visit: Yes Status: Acute Code(s): L03.311 - CELLULITIS OF ABDOMINAL WALL SNOMED Code(s): 06309589 (2) Abscess of abdominal wall Current Visit: Yes Status: Acute Priority: High Code(s): L02.211 - CUTANEOUS ABSCESS OF ABDOMINAL WALL SNOMED Code(s): 90414180 Plan: 1patient with a right lower abdominal wall area of induration and swelling and redness concerning for small abscess at the insulin pump needle insertion site and will need to cover for the gram-positive skin kinjal to the likely pathogen. 2await general surgery evaluation possible drainage and culture 3-nursing staff has been advised if the area started to drain to obtain deep culture. 4vancomycin pharmacy to dose with a target trough of 15 while watching kidney function and Vanco trough closely.. We will follow on clinical condition and cultures to further adjust medication if needed Thank you for this consultation we will follow the patient along with you Dictation was produced using [email or web address] dictation software. please excuse any grammatical, word or spelling errors. Time with Patient: Greater than 30
[2023-07-07] MEDS: VANCOMYCIN 1,000 MG in SODIUM CHLORIDE 0.9% 250 ML IVPB SCH ×2 (01:57→12:51)
[2023-07-07] MEDS: SODIUM CHLORIDE 0.9% 1,000 ML IV SCH ×2 (02:01→15:18)
[2023-07-07] MEDS: MORPHINE SULFATE 4 MG/ML SYRINGE IV PRN (02:13)
[2023-07-07] MEDS: ONDANSETRON 4 MG/2 ML VIAL IVP PRN ×2 (02:13→21:33)
[2023-07-07] MEDS: LEVOTHYROXINE 75 MCG TAB PO SCH (05:31)
[2023-07-07 07:25] LABS: Glucose,Whole Blood 226 mg/dL (70-110)
[2023-07-07] MEDS: INSULIN ASPART (NovoLOG) 100 UNIT/ML VIAL SQ SCH ×4 (08:07→21:13)
[2023-07-07] MEDS: CLOPIDOGREL 75 MG TAB PO SCH (08:08)
[2023-07-07] MEDS: METOPROLOL SUCCINATE (ER) 50 MG TAB.ER.24H PO SCH ×2 (08:08→21:12)
[2023-07-07] MEDS: ASPIRIN 81 MG PO SCH (08:08)
[2023-07-07] MEDS: MULTIVITAMINS, THERA 1 EACH TAB PO SCH (08:08)
[2023-07-07] MEDS: CHOLECALCIFEROL 25 MCG (1000 IU) TABLET PO SCH (08:08)
[2023-07-07] MEDS: HEPARIN SODIUM,PORCINE 5,000 UNIT/ML 1 ML VIAL SQ SCH ×2 (08:08→21:12)
[2023-07-07] MEDS: MEMANTINE 10 MG TAB PO SCH (08:09)
[2023-07-07] MEDS: HYDROcodone/APAP 5-325MG 1 EACH TAB PO PRN ×2 (08:13→14:30)
--- NOTE | 2023-07-07 08:33 | P.PN ---
Subjective Progress Note Date: 07/07/23 Resting comfortably. Abscess is very superficial and less than 1-cm. No open surgical drainage. Recommend warm compress and antibiotics. Objective - Vital Signs Vital signs: Vital Signs Temp 97.8 F 07/07/23 01:34 Pulse 86 07/07/23 01:34 Resp 16 07/07/23 01:34 BP 120/75 07/07/23 01:34 Pulse Ox 100 07/07/23 01:34 FiO2 Intake & Output 07/06/23 07/07/23 07/07/23 18:59 06:59 18:59 Intake Total 1275 1140 Balance 1275 1140 Intake: Intake, IV Titration 1275 900 Amount Magnesium Sulfate-D5w Pmx 200 1 gm In Dextrose/Water 1 100ml.bag @ 100 mls/hr IVPB Q1H [facility] Rx#: [id number] Sodium Chloride 0.9% 1, 825 600 000 ml @ 75 mls/hr IV . [id number] [facility] Rx#:[id number] Vancomycin 1,000 mg In 250 250 Sodium Chloride 0.9% 250 ml @ 125 mls/hr IVPB Q12H [facility] Rx#:[id number] cefTRIAXone 2 gm In 50 Sodium Chloride 0.9% 50 ml @ 100 mls/hr IVPB Q24H [facility] Rx#:[id number] Oral 240 Other: Voiding Method Toilet Toilet # Voids 2 - Labs CBC & Chem 7: 07/05/23 21:52 07/05/23 21:52 Labs: Abnormal Lab Results - Last 24 Hours (Table) 07/05/23 07/06/23 07/06/23 Range/Units 21:52 08:42 12:39 POC Glucose (mg/dL) 37 L 246 H (70-110) mg/dL Free T4 0.14 L (0.78-2.19) ng/dL 07/06/23 07/06/23 07/07/23 Range/Units 17:27 20:24 07:23 POC Glucose (mg/dL) 382 H 329 H 226 H (70-110) mg/dL Free T4 (0.78-2.19) ng/dL
[2023-07-07 08:46] LABS: ALT 17 U/L (10-49); AST 27 U/L (14-35); Albumin 3.5 d/dL (3.8-4.9); Albumin/Globulin Ratio 1.46 Ratio (1.60-3.17); Alkaline Phosphatase 195 U/L (41-126); BUN/Creat Ratio 9.33 Ratio (12.00-20.00); Blood Urea Nitrogen 8.4 mg/dL (9.0-27.0); Calcium 8.7 mg/dL (8.7-10.3); Carbon Dioxide 25.6 mmol/L (21.6-31.8); Chloride 108 mmol/L (96-109); Globulin 2.4 d/dL (1.6-3.3); Glucose 155 mg/dL (70-110); Magnesium 1.9 mg/dL (1.5-2.4); Phosphorus 3.2 mg/dL (2.4-5.1); Potassium 4.9 mmol/L (3.5-5.5); Sodium 144 mmol/L (135-145); Total Bilirubin <0.2 mg/dL (0.3-1.2); Total Protein 5.9 d/dL (6.2-8.2)
[2023-07-07] MEDS ORDERED: FOLIC ACID PO SCH (09:00)
[2023-07-07 10:59] LABS: Basophils # (A) 0.03 X 10*3/uL (0.00-0.10); Basophils % (A) 0.5 %; Eosinophils # (A) 0.07 X 10*3/uL (0.04-0.35); Eosinophils % (A) 1.1 %; HCT 27.1 % (39.6-50.0); Lymphocytes # (A) 0.84 X 10*3/uL (0.90-5.00); Lymphocytes % (A) 12.7 %; MCH 30.5 pg (27.0-32.0); MCHC 33.2 d/dL (32.0-37.0); MCV 91.9 FL (80.0-97.0); Mean Platelet Volume 9.3 FL (9.5-12.2); Monocytes % (A) 15.1 %; NRBC Per 100 WBC 0 X 10*3/uL (0.00-0.01); Neutrophils % (A) 69.5 %; Platelet Count 279 X 10*3/uL (140-440); RBC 2.95 X 10*6/uL (4.40-5.60); RDW 16.3 % (11.5-14.5); WBC 6.61 X 10*3/uL (4.50-10.00)
[2023-07-07 12:34] LABS: Glucose,Whole Blood 178 mg/dL (70-110)
--- NOTE | 2023-07-07 13:07 | P.PN ---
Subjective Progress Note Date: 07/07/23 Principal diagnosis: abd abscess At today's visit patient is resting comfortably in bed. Patient is reporting fatigue. No acute events overnight Objective - Vital Signs Vital signs: Vital Signs Temp 97.9 F 07/07/23 07:26 Pulse 79 07/07/23 07:26 Resp 17 07/07/23 07:26 BP 146/79 07/07/23 07:26 Pulse Ox 100 07/07/23 07:26 FiO2 Intake & Output 07/06/23 07/07/23 07/07/23 18:59 06:59 18:59 Intake Total 1275 1140 Balance 1275 1140 Intake: Intake, IV Titration 1275 900 Amount Magnesium Sulfate-D5w Pmx 200 1 gm In Dextrose/Water 1 100ml.bag @ 100 mls/hr IVPB Q1H [facility] Rx#: [id number] Sodium Chloride 0.9% 1, 825 600 000 ml @ 75 mls/hr IV . [id number] [facility] Rx#:[id number] Vancomycin 1,000 mg In 250 250 Sodium Chloride 0.9% 250 ml @ 125 mls/hr IVPB Q12H [facility] Rx#:[id number] cefTRIAXone 2 gm In 50 Sodium Chloride 0.9% 50 ml @ 100 mls/hr IVPB Q24H [facility] Rx#:[id number] Oral 240 Other: Voiding Method Toilet Toilet Toilet # Voids 2 - Constitutional General appearance: Present: average body habitus, no acute distress - EENT Eyes: Present: anicteric sclerae, EOMI ENT: Present: hearing grossly normal - Respiratory Details: breathing is even and unlabored - Cardiovascular Details: skin warm and dry - Integumentary Integumentary: Absent: cyanotic, jaundiced - Neurologic Neurologic Comment(s): grossly intact - Musculoskeletal Musculoskeletal: Present: strength equal bilaterally - Psychiatric Psychiatric: Present: A&O x's 3, appropriate affect, intact judgment & insight - Labs CBC & Chem 7: 07/07/23 05:53 07/07/23 05:53 Labs: Abnormal Lab Results - Last 24 Hours (Table) 07/05/23 07/06/23 07/06/23 Range/Units 21:52 17:27 20:24 RBC (4.40-5.60) X 10*6/uL Hgb (13.0-17.0) d/dL Hct (39.6-50.0) % RDW (11.5-14.5) % MPV (9.5-12.2) FL Lymphocytes # (0.90-5.00) X 10*3/uL BUN (9.0-27.0) mg/dL BUN/Creatinine Ratio (12.00-20.00) Ratio Glucose (70-110) mg/dL POC Glucose (mg/dL) 382 H 329 H (70-110) mg/dL Hemoglobin A1c (<=6.0) % Total Bilirubin (0.3-1.2) mg/dL Alkaline Phosphatase (41-126) U/L Total Protein (6.2-8.2) d/dL Albumin (3.8-4.9) d/dL Albumin/Globulin Ratio (1.60-3.17) Ratio Free T4 0.14 L (0.78-2.19) ng/dL 07/07/23 07/07/23 07/07/23 Range/Units 05:53 05:53 05:53 RBC 2.95 L (4.40-5.60) X 10*6/uL Hgb 9.0 L (13.0-17.0) d/dL Hct 27.1 L (39.6-50.0) % RDW 16.3 H (11.5-14.5) % MPV 9.3 L (9.5-12.2) FL Lymphocytes # 0.84 L (0.90-5.00) X 10*3/uL BUN 8.4 L (9.0-27.0) mg/dL BUN/Creatinine Ratio 9.33 L (12.00-20.00) Ratio Glucose 155 H (70-110) mg/dL POC Glucose (mg/dL) (70-110) mg/dL Hemoglobin A1c 8.9 H (<=6.0) % Total Bilirubin <0.2 L (0.3-1.2) mg/dL Alkaline Phosphatase 195 H (41-126) U/L Total Protein 5.9 L (6.2-8.2) d/dL Albumin 3.5 L (3.8-4.9) d/dL Albumin/Globulin Ratio 1.46 L (1.60-3.17) Ratio Free T4 (0.78-2.19) ng/dL 07/07/23 07/07/23 Range/Units 07:23 12:33 RBC (4.40-5.60) X 10*6/uL Hgb (13.0-17.0) d/dL Hct (39.6-50.0) % RDW (11.5-14.5) % MPV (9.5-12.2) FL Lymphocytes # (0.90-5.00) X 10*3/uL BUN (9.0-27.0) mg/dL BUN/Creatinine Ratio (12.00-20.00) Ratio Glucose (70-110) mg/dL POC Glucose (mg/dL) 226 H 178 H (70-110) mg/dL Hemoglobin A1c (<=6.0) % Total Bilirubin (0.3-1.2) mg/dL Alkaline Phosphatase (41-126) U/L Total Protein (6.2-8.2) d/dL Albumin (3.8-4.9) d/dL Albumin/Globulin Ratio (1.60-3.17) Ratio Free T4 (0.78-2.19) ng/dL Assessment and Plan (1) Abscess of abdominal wall Current Visit: Yes Status: Acute Priority: High Code(s): L02.211 - CUTANEOUS ABSCESS OF ABDOMINAL WALL SNOMED Code(s): 30599605 (2) Adenocarcinoma of lung, stage 4 Current Visit: Yes Status: Chronic Priority: High Code(s): C34.90 - MALIGNANT NEOPLASM OF UNSP PART OF UNSP BRONCHUS OR LUNG SNOMED Code(s): 862755075 Plan: #Right abdominal wall abscess -Area of tenderness with fluctuance and erythema noted on exam has developed over the past 1 to 2 days prior to admission at the site of insulin pump injection associated with purulent discharge -He denies any fevers or chills -Abdominal ultrasound noting 0.4 x 0.3 x 0.4 cm collection of fluid in the right abdominal wall, which appears to be consistent with abscess -Continues on vancomycin/rocephin -Surgery has evaluated patient. No plan for I&D at this time. Recommend continuation of antibiotics and warm compresses #Metastatic adenocarcinoma of the lung -Completed cycle 4 of carboplatin/Alimta/Keytruda on 06/15/2023 -Per last clinic follow-up on 06/22/2023, it was recommended he receive at least 2-3 additional cycles of treatment, given his first 2 cycles did not contain carboplatin due to national chemotherapy shortage -This will be followed by repeat imaging to assess treatment response -Next cycle of treatment was scheduled for 07/07/2023. This will be rescheduled given current right abdominal wall abscess -This will be delayed at least 1 week and potentially longer depending on definitive antibiotic regimen for treatment of the right abdominal wall abscess -F/u scheduled for 07/16 for reevaluation to ensure patient has adequately recovered prior to proceeding with next cycle of treatment Pt updated on POC
[2023-07-07 15:28] VITALS: BMI 21.4
[2023-07-07] MEDS ORDERED: OLANZapine 2.5 MG TAB PO SCH (15:45)
[2023-07-07 17:18] LABS: Glucose,Whole Blood 84 mg/dL (70-110)
[2023-07-07 20:33] LABS: Glucose,Whole Blood 118 mg/dL (70-110)
[2023-07-07] MEDS: ATORVASTATIN 80 MG TAB PO SCH (21:12)
--- NOTE | 2023-07-07 22:01 | PN ---
PROGRESS NOTE DATE OF SERVICE: 07/07/2023 SUBJECTIVE: This 62-year-old gentleman was admitted with significant weakness, also had significant wound infection with abdominal wall cellulitis and abscess at the insulin pump site, multiple consultants are following the patient closely including surgery, no open surgical drainage is being planned at this time. Abdominal ultrasound showed some edematous tissue with no with small hypoechoic area. PAST MEDICAL HISTORY: Reviewed. REVIEW OF SYSTEMS: A 14-point review is negative except as mentioned. CURRENT MEDICATIONS: Reviewed include Rocephin 2 g, rest of medications and rest of the doses are noted. PHYSICAL EXAMINATION: VITAL SIGNS: Pulse 76, blood pressure n, respirations 17. CHEST: Clear to auscultation. CARDIOVASCULAR: S1, S2. ABDOMEN: Soft, right-sided abdominal wall wound infection as well as erythema, induration also present, cellulitis is also present. LABORATORY DATA: Reviewed. ASSESSMENT: 1. Abdominal wall cellulitis and abscess at the insulin pump insertion site. 2. Hypothyroidism. 3. Numbness, weakness, and fatigue. 4. Hyperglycemia. 5. Coronary artery disease. 6. History of CHF. 7. Multiple medical issues. RECOMMENDATIONS: Recommended to continue current management, continue symptomatic treatment, continue with antibiotics. Closely follow with surgery, Infectious Disease. The patient is on intravenous antibiotics, follow the cultures. Continue to monitor. Repeat labs. DVT prophylaxis. Further recommendations to follow. MMODL / IJN: [id number] / CIRILO
[2023-07-08] MEDS ORDERED: VANCOMYCIN TROUGH DUE 1 EACH MISC MISCELLANE ONE (01:00)
[2023-07-08] MEDS: VANCOMYCIN 1,000 MG in SODIUM CHLORIDE 0.9% 250 ML IVPB SCH ×2 (02:19→12:48)
[2023-07-08] MEDS: HYDROcodone/APAP 5-325MG 1 EACH TAB PO PRN ×2 (02:26→20:27)
[2023-07-08 02:36] LABS: Glucose,Whole Blood 406 mg/dL (70-110)
[2023-07-08] MEDS: INSULIN ASPART (NovoLOG) 100 UNIT/ML VIAL SQ SCH ×5 (02:54→20:28)
[2023-07-08] MEDS: SODIUM CHLORIDE 0.9% 1,000 ML IV SCH ×2 (02:57→20:41)
[2023-07-08] MEDS: LEVOTHYROXINE 75 MCG TAB PO SCH (05:17)
[2023-07-08] MEDS: MORPHINE SULFATE 4 MG/ML SYRINGE IV PRN (05:35)
[2023-07-08 07:23] LABS: African American GFR (CKD) >90 (>60 ml/min/1.73 sqM); Anion Gap 5 mmol/L; Blood Urea Nitrogen 14 mg/dL (9-20); Calcium 8.4 mg/dL (8.4-10.2); Carbon Dioxide 25 mmol/L (22-30); Chloride 106 mmol/L (98-107); Glucose 321 mg/dL (74-99); Non-African American GFR(CKD) >90 (>60 ml/min/1.73 sqM); Sodium 136 mmol/L (137-145)
[2023-07-08 07:24] LABS: Glucose,Whole Blood 295 mg/dL (70-110)
[2023-07-08] MEDS: CHOLECALCIFEROL 25 MCG (1000 IU) TABLET PO SCH (09:02)
[2023-07-08] MEDS: CLOPIDOGREL 75 MG TAB PO SCH (09:02)
[2023-07-08] MEDS: HEPARIN SODIUM,PORCINE 5,000 UNIT/ML 1 ML VIAL SQ SCH ×2 (09:02→20:28)
[2023-07-08] MEDS: ASPIRIN 81 MG PO SCH (09:02)
[2023-07-08] MEDS: MULTIVITAMINS, THERA 1 EACH TAB PO SCH (09:02)
[2023-07-08] MEDS: METOPROLOL SUCCINATE (ER) 50 MG TAB.ER.24H PO SCH ×2 (09:02→20:27)
[2023-07-08] MEDS: FOLIC ACID 1 MG TAB PO SCH (09:02)
[2023-07-08] MEDS: MEMANTINE 10 MG TAB PO SCH (09:03)
[2023-07-08 11:25] LABS: Basophils # (A) 0.03 X 10*3/uL (0.00-0.10); Basophils % (A) 0.5 %; Eosinophils # (A) 0.09 X 10*3/uL (0.04-0.35); Eosinophils % (A) 1.5 %; HCT 25.5 % (39.6-50.0); HGB 8.3 d/dL (13.0-17.0); Lymphocytes # (A) 1.09 X 10*3/uL (0.90-5.00); Lymphocytes % (A) 17.8 %; MCH 30.5 pg (27.0-32.0); MCHC 32.5 d/dL (32.0-37.0); MCV 93.8 FL (80.0-97.0); Mean Platelet Volume 9.2 FL (9.5-12.2); Monocytes # (A) 0.88 X 10*3/uL (0.20-1.00); Monocytes % (A) 14.4 %; NRBC Per 100 WBC 0 X 10*3/uL (0.00-0.01); Neutrophils # (A) 3.96 X 10*3/uL (1.80-7.70); Neutrophils % (A) 64.8 %; Platelet Count 292 X 10*3/uL (140-440); RBC 2.72 X 10*6/uL (4.40-5.60); RDW 16.6 % (11.5-14.5); WBC 6.11 X 10*3/uL (4.50-10.00)
[2023-07-08 12:13] LABS: Glucose,Whole Blood 208 mg/dL (70-110)
--- NOTE | 2023-07-08 13:01 | P.PN ---
Subjective Progress Note Date: 07/08/23 Principal diagnosis: abd abscess At today's visit patient is resting comfortably in bed. Patient is reporting mild drainage from abdominal abscess and intermittent nausea. Denies vomiting. Temperature 99.8 this morning Objective - Vital Signs Vital signs: Vital Signs Temp 97.6 F 07/08/23 12:08 Pulse 70 07/08/23 12:08 Resp 18 07/08/23 12:08 BP 133/69 07/08/23 12:08 Pulse Ox 100 07/08/23 12:08 FiO2 Intake & Output 07/07/23 07/08/23 07/08/23 18:59 06:59 18:59 Intake Total 1150 Balance 1150 Weight 65.771 kg Intake: Intake, IV Titration 1150 Amount Sodium Chloride 0.9% 1, 900 000 ml @ 75 mls/hr IV . [id number] [facility] Rx#:[id number] Vancomycin 1,000 mg In 250 Sodium Chloride 0.9% 250 ml @ 125 mls/hr IVPB Q12H [facility] Rx#:[id number] Other: Voiding Method Toilet Toilet Toilet # Voids 1 - Constitutional General appearance: Present: average body habitus, no acute distress - EENT Eyes: Present: anicteric sclerae, EOMI ENT: Present: hearing grossly normal - Respiratory Details: breathing even and unlabored - Cardiovascular Details: skin warm and dry - Gastrointestinal Gastrointestinal Comment(s): scant purulent drainage from right sided abdominal abscess with erythema and mild tenderness noted to site - Integumentary Integumentary: Absent: cyanotic, jaundiced - Neurologic Neurologic Comment(s): grossly intact - Musculoskeletal Musculoskeletal: Present: strength equal bilaterally - Psychiatric Psychiatric: Present: A&O x's 3, appropriate affect, intact judgment & insight - Labs CBC & Chem 7: 07/08/23 05:57 07/08/23 05:57 Labs: Abnormal Lab Results - Last 24 Hours (Table) 07/07/23 07/08/23 07/08/23 Range/Units 20:32 02:34 05:57 RBC (4.40-5.60) X 10*6/uL Hgb (13.0-17.0) d/dL Hct (39.6-50.0) % RDW (11.5-14.5) % MPV (9.5-12.2) FL Sodium 136 L (137-145) mmol/L Glucose 321 H (74-99) mg/dL POC Glucose (mg/dL) 118 H 406 H (70-110) mg/dL 07/08/23 07/08/23 07/08/23 Range/Units 05:57 07:23 12:12 RBC 2.72 L (4.40-5.60) X 10*6/uL Hgb 8.3 L (13.0-17.0) d/dL Hct 25.5 L (39.6-50.0) % RDW 16.6 H (11.5-14.5) % MPV 9.2 L (9.5-12.2) FL Sodium (137-145) mmol/L Glucose (74-99) mg/dL POC Glucose (mg/dL) 295 H 208 H (70-110) mg/dL Assessment and Plan (1) Abscess of abdominal wall Current Visit: Yes Status: Acute Priority: High Code(s): L02.211 - CU TANEOUS ABSCESS OF ABDOMINAL WALL SNOMED Code(s): 97832634 (2) Adenocarcinoma of lung, stage 4 Current Visit: Yes Status: Chronic Priority: High Code(s): C34.90 - MALIGNANT NEOPLASM OF UNSP PART OF UNSP BRONCHUS OR LUNG SNOMED Code(s): 297378499 Plan: #Right abdominal wall abscess -Area of tenderness with fluctuance and erythema noted on exam has developed over the past 1 to 2 days prior to admission at the site of insulin pump injection associated with purulent discharge -Remains afebrile -Abdominal ultrasound noting 0.4 x 0.3 x 0.4 cm collection of fluid in the right abdominal wall, which appears to be consistent with abscess -Continues on vancomycin/rocephin -Surgery has evaluated patient. No plan for I&D at this time. Recommend continuation of antibiotics and warm compresses #Metastatic adenocarcinoma of the lung -Completed cycle 4 of carboplatin/Alimta/Keytruda on 06/15/2023 -Per last clinic follow-up on 06/22/2023, it was recommended he receive at least 2-3 additional cycles of treatment, given his first 2 cycles did not contain carboplatin due to national chemotherapy shortage -This will be followed by repeat imaging to assess treatment response -Next cycle of treatment was scheduled for 07/07/2023. This will be rescheduled given current right abdominal wall abscess -This will be delayed at least 1 week and potentially longer depending on definitive antibiotic regimen for treatment of the right abdominal wall abscess -F/u scheduled for 07/16 for reevaluation to ensure patient has adequately recovered prior to proceeding with next cycle of treatment Pt updated on POC
--- NOTE | 2023-07-08 13:31 | PN ---
PROGRESS NOTE DATE OF SERVICE: 07/08/2023 SUBJECTIVE: This is a 62-year-old gentleman who was admitted with abdominal wall abscess and infection. He is on IV antibiotics. No chest pain, no palpitation. OBJECTIVE: VITAL SIGNS: Pulse is 72, blood pressure is 110/61, and respirations 16. CHEST: Clear to auscultation. CARDIOVASCULAR: S1, S2. ABDOMEN: Soft, right-sided abdominal abscess, cellulitis present. LABORATORY DATA: Noted. ASSESSMENT: 1. Abdominal wall cellulitis and abscess at insulin pump infection site. 2. Hypothyroidism. 3. Weakness, fatigue. 4. Hyperglycemia. 5. History of coronary artery disease. 6. History of congestive heart failure. 7. Multiple medical issues. RECOMMENDATIONS: Recommended to continue current management and continue with IV antibiotics. This patient will require inpatient admission for more than 2 nights because of above- mentioned multiple complex medical issues. See orders for further details. MMODL / IJN: [id number] /
--- NOTE | 2023-07-08 14:47 | P.PN ---
Subjective Progress Note Date: 07/08/23 CHIEF COMPLAINT: Small right flank abscess HISTORY OF PRESENT ILLNESS: Patient's right flank abscess is having minimal drainage. It has decreased in size. Patient reports that it is improving. Patient does have a history of diabetes. Low-grade temp of 99.8 this morning. WBC 6.11 glucose 208 PHYSICAL EXAM: VITAL SIGNS: Reviewed GENERAL: Well-developed in no acute distress. HEENT: No sclera icterus. Extraocular movements grossly intact. Moist buccal mucosa. Head is atraumatic, normocephalic. Hears conversational speech. No nasal drainage. NECK: Supple without lymphadenopathy. CHEST: Non-labored respirations and equal bilateral excursions. CARDIOVASCULAR: Palpable 2+ radial pulses. ABDOMEN: Soft. Nondistended. Nontender. Right flank small 2 cm superficial abscess. With minimal yellowish drainage. MUSCULOSKELETAL: No clubbing or cyanosis. NEUROLOGIC: No focal or lateralizing signs. Cranial nerves II through XII grossly intact. PSYCH: Appropriate affect. Alert and oriented to person, place and time. SKIN: Well perfused. Good skin turgor. ASSESSMENT: 1. Small Right flank superficial abscess showing improvement 2. Diabetes mellitus PLAN: -No surgical intervention planned -Continue antibiotics -Continue warm compresses Physician Inpatient Pharmacist note has been reviewed by physician. Signing provider agrees with the documented findings, assessment, and plan of care. Objective - Vital Signs Vital signs: Vital Signs Temp 97.6 F 07/08/23 12:08 Pulse 70 07/08/23 12:08 Resp 18 07/08/23 12:08 BP 133/69 07/08/23 12:08 Pulse Ox 100 07/08/23 12:08 FiO2 Intake & Output 07/07/23 07/08/23 07/08/23 18:59 06:59 18:59 Intake Total 1150 Balance 1150 Weight 65.771 kg Intake: Intake, IV Titration 1150 Amount Sodium Chloride 0.9% 1, 900 000 ml @ 75 mls/hr IV . [id number] [facility] Rx#:[id number] Vancomycin 1,000 mg In 250 Sodium Chloride 0.9% 250 ml @ 125 mls/hr IVPB Q12H [facility] Rx#:[id number] Other: Voiding Method Toilet Toilet Toilet # Voids 1 - Labs CBC & Chem 7: 07/08/23 05:57 07/08/23 05:57 Labs: Abnormal Lab Results - Last 24 Hours (Table) 07/07/23 07/08/23 07/08/23 Range/Units 20:32 02:34 05:57 RBC (4.40-5.60) X 10*6/uL Hgb (13.0-17.0) d/dL Hct (39.6-50.0) % RDW (11.5-14.5) % MPV (9.5-12.2) FL Sodium 136 L (137-145) mmol/L Glucose 321 H (74-99) mg/dL POC Glucose (mg/dL) 118 H 406 H (70-110) mg/dL 07/08/23 07/08/23 07/08/23 Range/Units 05:57 07:23 12:12 RBC 2.72 L (4.40-5.60) X 10*6/uL Hgb 8.3 L (13.0-17.0) d/dL Hct 25.5 L (39.6-50.0) % RDW 16.6 H (11.5-14.5) % MPV 9.2 L (9.5-12.2) FL Sodium (137-145) mmol/L Glucose (74-99) mg/dL POC Glucose (mg/dL) 295 H 208 H (70-110) mg/dL
[2023-07-08 18:05] LABS: Glucose,Whole Blood 190 mg/dL (70-110)
[2023-07-08 20:01] LABS: Glucose,Whole Blood 200 mg/dL (70-110)
[2023-07-08] MEDS: ATORVASTATIN 80 MG TAB PO SCH (20:28)
[2023-07-08] MEDS: ONDANSETRON 4 MG/2 ML VIAL IVP PRN (20:28)
[2023-07-09] MEDS: VANCOMYCIN 1,000 MG in SODIUM CHLORIDE 0.9% 250 ML IVPB SCH ×2 (02:13→14:34)
[2023-07-09] MEDS: HYDROcodone/APAP 5-325MG 1 EACH TAB PO PRN ×2 (02:13→19:47)
[2023-07-09] MEDS: LEVOTHYROXINE 75 MCG TAB PO SCH (05:40)
[2023-07-09 07:16] LABS: Glucose,Whole Blood 443 mg/dL (70-110)
[2023-07-09] MEDS: FOLIC ACID 1 MG TAB PO SCH (09:44)
[2023-07-09] MEDS: INSULIN ASPART (NovoLOG) 100 UNIT/ML VIAL SQ SCH ×6 (09:44→20:41)
[2023-07-09] MEDS: CHOLECALCIFEROL 25 MCG (1000 IU) TABLET PO SCH (09:45)
[2023-07-09] MEDS: MULTIVITAMINS, THERA 1 EACH TAB PO SCH (09:45)
[2023-07-09] MEDS: METOPROLOL SUCCINATE (ER) 50 MG TAB.ER.24H PO SCH ×2 (09:45→19:47)
[2023-07-09] MEDS: ASPIRIN 81 MG PO SCH (09:45)
[2023-07-09] MEDS: CLOPIDOGREL 75 MG TAB PO SCH (09:45)
[2023-07-09] MEDS: HEPARIN SODIUM,PORCINE 5,000 UNIT/ML 1 ML VIAL SQ SCH ×2 (09:45→19:47)
[2023-07-09] MEDS: SODIUM CHLORIDE 0.9% 1,000 ML IV SCH (09:46)
[2023-07-09] MEDS: MEMANTINE 10 MG TAB PO SCH (10:18)
--- NOTE | 2023-07-09 10:52 | P.PN ---
Subjective Progress Note Date: 07/09/23 CHIEF COMPLAINT: Small right flank abscess HISTORY OF PRESENT ILLNESS: Patient's right flank abscess is having minimal drainage. He did report some pain last night. Afebrile. WBC 6.11 glucose of 443 PHYSICAL EXAM: VITAL SIGNS: Reviewed GENERAL: Well-developed in no acute distress. HEENT: No sclera icterus. Extraocular movements grossly intact. Moist buccal mucosa. Head is atraumatic, normocephalic. Hears conversational speech. No nasal drainage. NECK: Supple without lymphadenopathy. CHEST: Non-labored respirations and equal bilateral excursions. CARDIOVASCULAR: Palpable 2+ radial pulses. ABDOMEN: Soft. Nondistended. Nontender. Right flank small 2 cm superficial abscess. With minimal yellowish drainage. MUSCULOSKELETAL: No clubbing or cyanosis. NEUROLOGIC: No focal or lateralizing signs. Cranial nerves II through XII grossly intact. PSYCH: Appropriate affect. Alert and oriented to person, place and time. SKIN: Well perfused. Good skin turgor. ASSESSMENT: 1. Small Right flank superficial abscess showing improvement 2. Diabetes mellitus PLAN: -No surgical intervention planned -Continue antibiotics per ID service -Continue warm compresses -Recommend tight glucose control Physician Composite Bond Worker note has been reviewed by physician. Signing provider agrees with the documented findings, assessment, and plan of care. Objective - Vital Signs Vital signs: Vital Signs Temp 98 F 07/09/23 01:43 Pulse 77 07/09/23 01:43 Resp 16 07/09/23 01:43 BP 109/68 07/09/23 01:43 Pulse Ox 100 07/09/23 08:06 FiO2 Intake & Output 07/08/23 07/09/23 07/09/23 18:59 06:59 18:59 Other: Voiding Method Toilet Toilet # Voids 1 - Labs CBC & Chem 7: 07/08/23 05:57 07/08/23 05:57 Labs: Abnormal Lab Results - Last 24 Hours (Table) 07/08/23 07/08/23 07/08/23 Range/Units 05:57 12:12 17:13 RBC 2.72 L (4.40-5.60) X 10*6/uL Hgb 8.3 L (13.0-17.0) d/dL Hct 25.5 L (39.6-50.0) % RDW 16.6 H (11.5-14.5) % MPV 9.2 L (9.5-12.2) FL POC Glucose (mg/dL) 208 H 190 H (70-110) mg/dL 07/08/23 07/09/23 Range/Units 19:59 07:15 RBC (4.40-5.60) X 10*6/uL Hgb (13.0-17.0) d/dL Hct (39.6-50.0) % RDW (11.5-14.5) % MPV (9.5-12.2) FL POC Glucose (mg/dL) 200 H 443 H (70-110) mg/dL
[2023-07-09 11:46] LABS: Glucose,Whole Blood 455 mg/dL (70-110)
[2023-07-09] MEDS ORDERED: FUROSEMIDE 10 MG/ML 2 ML VIAL IV STA (12:05)
--- NOTE | 2023-07-09 12:40 | PN ---
PROGRESS NOTE DATE OF SERVICE: 07/09/2023 SUBJECTIVE: This 62-year-old gentleman admitted with abdominal wall cellulitis and abscess. He is improving significantly. Minimal drainage is noted. Cultures are negative so far. OBJECTIVE: VITAL SIGNS: Pulse is 77, blood pressure 109/60, respirations 16. CHEST: Clear to auscultation. CARDIOVASCULAR: S1, S2. ABDOMEN: Soft, minimal abdominal wall edema. LABORATORY DATA: Reviewed. Glucose is 443. ASSESSMENT: 1. Abdominal wall cellulitis and abscess at insulin pump infection site, on IV antibiotics. 2. Hypothyroidism. 3. Weakness and fatigue. 4. Hyperglycemia. 5. History of coronary artery disease. 6. History of CHF. 7. Multiple medical issues. RECOMMENDATIONS: Recommended to continue current management, continue symptomatic treatment. Otherwise, at this time I will recommend to continue the IV antibiotics, follow closely with Infectious Disease for dose of Lasix. Further recommendations to follow. MMODL / IJN: [id number] /
[2023-07-09] MEDS: INSULIN DETEMIR (LEVEMIR) 100 UNIT/ML SYR SQ SCH (13:32)
[2023-07-09 16:53] LABS: Glucose,Whole Blood 248 mg/dL (70-110)
[2023-07-09] MEDS: ONDANSETRON 4 MG/2 ML VIAL IVP PRN (19:46)
[2023-07-09] MEDS: ATORVASTATIN 80 MG TAB PO SCH (19:47)
[2023-07-09 20:39] LABS: Glucose,Whole Blood 92 mg/dL (70-110)
[2023-07-10] MEDS: VANCOMYCIN 1,000 MG in SODIUM CHLORIDE 0.9% 250 ML IVPB SCH (01:49)
[2023-07-10] MEDS: INSULIN DETEMIR (LEVEMIR) 100 UNIT/ML SYR SQ SCH ×2 (02:28→08:10)
[2023-07-10 02:29] LABS: Glucose,Whole Blood 55 mg/dL (70-110)
[2023-07-10 02:48] LABS: Glucose,Whole Blood 57 mg/dL (70-110)
[2023-07-10] MEDS: DEXTROSE 50% SYRINGE 50 ML IVP PRN (02:52)
[2023-07-10 03:25] LABS: Glucose,Whole Blood 99 mg/dL (70-110)
[2023-07-10] MEDS: LEVOTHYROXINE 75 MCG TAB PO SCH (05:45)
[2023-07-10 07:08] LABS: Glucose,Whole Blood 152 mg/dL (70-110)
[2023-07-10] MEDS: HYDROcodone/APAP 5-325MG 1 EACH TAB PO PRN (08:08)
[2023-07-10] MEDS: INSULIN ASPART (NovoLOG) 100 UNIT/ML VIAL SQ SCH ×7 (08:09→22:15)
[2023-07-10] MEDS: ONDANSETRON 4 MG/2 ML VIAL IVP PRN ×2 (08:13→19:56)
[2023-07-10] MEDS: ASPIRIN 81 MG PO SCH (12:01)
[2023-07-10] MEDS: CHOLECALCIFEROL 25 MCG (1000 IU) TABLET PO SCH (12:02)
[2023-07-10] MEDS: CLOPIDOGREL 75 MG TAB PO SCH (12:02)
[2023-07-10] MEDS: FOLIC ACID 1 MG TAB PO SCH (12:02)
[2023-07-10] MEDS: HEPARIN SODIUM,PORCINE 5,000 UNIT/ML 1 ML VIAL SQ SCH ×2 (12:02→21:54)
[2023-07-10] MEDS: MULTIVITAMINS, THERA 1 EACH TAB PO SCH (12:03)
[2023-07-10] MEDS: MEMANTINE 10 MG TAB PO SCH (12:03)
[2023-07-10] MEDS: METOPROLOL SUCCINATE (ER) 50 MG TAB.ER.24H PO SCH ×2 (12:12→21:55)
[2023-07-10 12:34] LABS: Glucose,Whole Blood 93 mg/dL (70-110)
[2023-07-10] MEDS ORDERED: VANCOMYCIN TROUGH DUE 1 EACH MISC MISCELLANE ONE (13:00)
[2023-07-10 13:24] LABS: African American GFR (CKD) >90 (>60 ml/min/1.73 sqM); Non-African American GFR(CKD) >90 (>60 ml/min/1.73 sqM)
--- NOTE | 2023-07-10 16:00 | XR ---
EXAMINATION TYPE: XR chest 1V portable DATE OF EXAM: 07/10/2023 Comparison: 04/03/2023 and 12/15/2022 Clinical History: 62-year-old male shortness of breath Findings: Right anterior chest wall injection port with subclavian access and catheter tip at the upper SVC. He art normal size. Hyperinflation. Patchy interstitial densities right mid and lower lung. Subtle under lying nodularity at the periphery of the right midlung remains unchanged from 04/03/2023 but new from . 2 generator devices project at the periphery of the lower left chest. Old healed fracture d eformity left midclavicular shaft. Spinal stimulator array along the lower thoracic spinal canal. Juan e patchy retrocardiac density is also similar. Impression: 1. As compared to 04/03/2023, patchy interstitial infiltrates right mid and lower lung are similar as i s an associated underlying nodular density. However, findings new from 12/15/2022. If there is an onco logic history, appropriate surveillance follow-up is recommended. 2. Patchy retrocardiac atelectasis or infiltrate is also similar from 04/03/2023. 3. Background COPD.
[2023-07-10 16:10] LABS: Anisocytosis Slight; Basophils % (A) 0 %; Eosinophils # (A) 0.1 k/uL (0-0.7); Eosinophils % (A) 1 %; HCT 26.7 % (39.0-53.0); Lymphocytes # (A) 0.9 k/uL (1.0-4.8); Lymphocytes % (A) 11 %; MCH 30.7 pg (25.0-35.0); MCHC 33.8 g/dL (31.0-37.0); MCV 90.7 fL (80.0-100.0); Mean Platelet Volume 7.5; Monocytes # (A) 0.8 k/uL (0-1.0); Monocytes % (A) 10 %; Neutrophils % (A) 73 %; Platelet Count 401 k/uL (150-450); RBC 2.94 m/uL (4.30-5.90); RDW 18.6 % (11.5-15.5); WBC 8.3 k/uL (3.8-10.6)
[2023-07-10 16:21] LABS: ALT 19 U/L (4-49); AST 35 U/L (17-59); African American GFR (CKD) >90 (>60 ml/min/1.73 sqM); Albumin 3.1 g/dL (3.5-5.0); Albumin/Globulin Ratio 1.1; Alkaline Phosphatase 175 U/L (38-126); Anion Gap 8 mmol/L; Blood Urea Nitrogen 14 mg/dL (9-20); Calcium 8.8 mg/dL (8.4-10.2); Carbon Dioxide 25 mmol/L (22-30); Chloride 103 mmol/L (98-107); Globulin 2.9 g/dL; Glucose 79 mg/dL (74-99); Non-African American GFR(CKD) >90 (>60 ml/min/1.73 sqM); Sodium 136 mmol/L (137-145); Total Bilirubin 0.2 mg/dL (0.2-1.3)
[2023-07-10 16:48] LABS: Band Neutrophils % 6 %; Eosinophils # (M) 0.08 k/uL (0-0.7); Lymphocytes # (M) 1.16 k/uL (1.0-4.8); Monocytes # (M) 0.75 k/uL (0-1.0); Neutrophils % (M) 70 %; Nucleated Red Blood Cells 0 /100 WBC (0-0); Total Cells Counted 100
[2023-07-10 17:18] LABS: Glucose,Whole Blood 88 mg/dL (70-110)
--- NOTE | 2023-07-10 17:22 | P.PN ---
Subjective Progress Note Date: 07/07/23 Principal diagnosis: Abdominal wall cellulitis/abscess Patient is a 62-year-old male with a past medical history significant for diabetes mellitus patient did have a insulin pump for management of his underlying diabetes patient did develop swelling redness at the insulin pump needle insertion site on right lower abdominal area with concern for small abscess at that location. On today's evaluation that is 07/07/2023, the patient denies having any fever or any chills, the patient is breathing comfortably, the patient denies having any chest pain, no nausea no vomiting no abdominal pain and no diarrhea has been reported. Patient did have a white count of 6.61 creatinine is 0.9 Objective - Vital Signs Vital signs: Vital Signs Temp 97.9 F 07/07/23 07:26 Pulse 79 07/07/23 07:26 Resp 17 07/07/23 07:26 BP 146/79 07/07/23 07:26 Pulse Ox 100 07/07/23 07:26 FiO2 Intake & Output 07/06/23 07/07/23 07/07/23 18:59 06:59 18:59 Intake Total 1275 1140 Balance 1275 1140 Intake: Intake, IV Titration 1275 900 Amount Magnesium Sulfate-D5w Pmx 200 1 gm In Dextrose/Water 1 100ml.bag @ 100 mls/hr IVPB Q1H [facility] Rx#: [id number] Sodium Chloride 0.9% 1, 825 600 000 ml @ 75 mls/hr IV . [id number] [facility] Rx#:[id number] Vancomycin 1,000 mg In 250 250 Sodium Chloride 0.9% 250 ml @ 125 mls/hr IVPB Q12H [facility] Rx#:[id number] cefTRIAXone 2 gm In 50 Sodium Chloride 0.9% 50 ml @ 100 mls/hr IVPB Q24H [facility] Rx#:[id number] Oral 240 Other: Voiding Method Toilet Toilet Toilet # Voids 2 - Exam GENERAL DESCRIPTION: A middle-age male lying in bed in no distress RESPIRATORY SYSTEM: Unlabored breathing , decreased breath sounds at bases HEART: S1 S2 regular rate and rhythm , ABDOMEN: Soft , right lower abdominal wall with area of induration and no drainage EXTREMITIES: No edema feet - Labs CBC & Chem 7: 07/10/23 15:29 07/10/23 15:29 Labs: Abnormal Lab Results - Last 24 Hours (Table) 07/05/23 07/06/23 07/06/23 Range/Units 21:52 17:27 20:24 RBC (4.40-5.60) X 10*6/uL Hgb (13.0-17.0) d/dL Hct (39.6-50.0) % RDW (11.5-14.5) % MPV (9.5-12.2) FL Lymphocytes # (0.90-5.00) X 10*3/uL BUN (9.0-27.0) mg/dL BUN/Creatinine Ratio (12.00-20.00) Ratio Glucose (70-110) mg/dL POC Glucose (mg/dL) 382 H 329 H (70-110) mg/dL Hemoglobin A1c (<=6.0) % Total Bilirubin (0.3-1.2) mg/dL Alkaline Phosphatase (41-126) U/L Total Protein (6.2-8.2) d/dL Albumin (3.8-4.9) d/dL Albumin/Globulin Ratio (1.60-3.17) Ratio Free T4 0.14 L (0.78-2.19) ng/dL 07/07/23 07/07/23 07/07/23 Range/Units 05:53 05:53 05:53 RBC 2.95 L (4.40-5.60) X 10*6/uL Hgb 9.0 L (13.0-17.0) d/dL Hct 27.1 L (39.6-50.0) % RDW 16.3 H (11.5-14.5) % MPV 9.3 L (9.5-12.2) FL Lymphocytes # 0.84 L (0.90-5.00) X 10*3/uL BUN 8.4 L (9.0-27.0) mg/dL BUN/Creatinine Ratio 9.33 L (12.00-20.00) Ratio Glucose 155 H (70-110) mg/dL POC Glucose (mg/dL) (70-110) mg/dL Hemoglobin A1c 8.9 H (<=6.0) % Total Bilirubin <0.2 L (0.3-1.2) mg/dL Alkaline Phosphatase 195 H (41-126) U/L Total Protein 5.9 L (6.2-8.2) d/dL Albumin 3.5 L (3.8-4.9) d/dL Albumin/Globulin Ratio 1.46 L (1.60-3.17) Ratio Free T4 (0.78-2.19) ng/dL 07/07/23 07/07/23 Range/Units 07:23 12:33 RBC (4.40-5.60) X 10*6/uL Hgb (13.0-17.0) d/dL Hct (39.6-50.0) % RDW (11.5-14.5) % MPV (9.5-12.2) FL Lymphocytes # (0.90-5.00) X 10*3/uL BUN (9.0-27.0) mg/dL BUN/Creatinine Ratio (12.00-20.00) Ratio Glucose (70-110) mg/dL POC Glucose (mg/dL) 226 H 178 H (70-110) mg/dL Hemoglobin A1c (<=6.0) % Total Bilirubin (0.3-1.2) mg/dL Alkaline Phosphatase (41-126) U/L Total Protein (6.2-8.2) d/dL Albumin (3.8-4.9) d/dL Albumin/Globulin Ratio (1.60-3.17) Ratio Free T4 (0.78-2.19) ng/dL Assessment and Plan (1) Abdominal wall cellulitis Current Visit: Yes Status: Acute Code(s): L03.311 - CELLULITIS OF ABDOMINAL WALL SNOMED Code(s): 95568230 (2) Abscess of abdominal wall Current Visit: Yes Status: Acute Priority: High Code(s): L02.211 - CUTANEOUS ABSCESS OF ABDOMINAL WALL SNOMED Code(s): 43300773 Plan: 1patient with a right lower abdominal wall area of induration and swelling and redness concerning for small abscess at the insulin pump needle insertion site and will need to cover for the gram-positive skin kinjal to the likely pathogen. 2patient benefit from surgical drainage and culture 3Patient to continue with vancomycin pharmacy to dose with a target trough of 15 while watching kidney function and Vanco trough closely.. Dictation was produced using [employer] software. please excuse any grammatical, word or spelling errors. Time with Patient: Less than 30
--- NOTE | 2023-07-10 17:23 | P.PN ---
Subjective Progress Note Date: 07/08/23 Principal diagnosis: Abdominal wall cellulitis/abscess Patient is a 62-year-old male with a past medical history significant for diabetes mellitus patient did have a insulin pump for management of his underlying diabetes patient did develop swelling redness at the insulin pump needle insertion site on right lower abdominal area with concern for small abscess at that location. On today's evaluation that is 07/08/2023, the patient remains to be afebrile, the patient is breathing comfortably on room air, the patient denies having any chest pain, no nausea no vomiting no abdominal pain and no diarrhea has been reported. Patient did have a white count of 6.61 creatinine is 0.91 Objective - Vital Signs Vital signs: Vital Signs Temp 97.9 F 07/09/23 12:26 Pulse 77 07/09/23 12:26 Resp 18 07/09/23 12:26 BP 108/66 07/09/23 12:26 Pulse Ox 100 07/09/23 12:26 FiO2 Intake & Output 07/08/23 07/09/23 07/09/23 18:59 06:59 18:59 Other: Voiding Method Toilet Toilet Toilet # Voids 1 - Exam GENERAL DESCRIPTION: A middle-age male lying in bed in no distress RESPIRATORY SYSTEM: Unlabored breathing , decreased breath sounds at bases HEART: S1 S2 regular rate and rhythm , ABDOMEN: Soft , right lower abdominal wall with area of induration and no drainage EXTREMITIES: No edema feet - Labs CBC & Chem 7: 07/10/23 15:29 07/10/23 15:29 Labs: Abnormal Lab Results - Last 24 Hours (Table) 07/08/23 07/08/23 07/09/23 Range/Units 17:13 19:59 07:15 POC Glucose (mg/dL) 190 H 200 H 443 H (70-110) mg/dL 07/09/23 Range/Units 11:45 POC Glucose (mg/dL) 455 H (70-110) mg/dL Assessment and Plan (1) Abdominal wall cellulitis Current Visit: Yes Status: Acute Code(s): L03.311 - CELLULITIS OF ABDOMINAL WALL SNOMED Code(s): 40820414 (2) Abscess of abdominal wall Current Visit: Yes Status: Acute Priority: High Code(s): L02.211 - CUTANEOUS ABSCESS OF ABDOMINAL WALL SNOMED Code(s): 94476470 Plan: 1patient with a right lower abdominal wall area of induration and swelling and redness concerning for small abscess at the insulin pump needle insertion site and will need to cover for the gram-positive skin kinjal to the likely pathogen. 2patient will benefit from surgical drainage and culture 3Patient to continue with vancomycin and Rocephin while waiting for the workup to be completed Dictation was produced using [employer] dictation software. please excuse any grammatical, word or spelling errors. Time with Patient: Less than 30
--- NOTE | 2023-07-10 17:26 | P.PN ---
Subjective Progress Note Date: 07/10/23 Principal diagnosis: Abdominal wall cellulitis/abscess Patient is a 62-year-old male with a past medical history significant for diabetes mellitus patient did have a insulin pump for management of his underlying diabetes patient did develop swelling redness at the insulin pump needle insertion site on right lower abdominal area with concern for small abscess at that location. On today's evaluation that is 07/10/2023, the patient denies having any fever or any chills, the patient is breathing comfortably, the patient denies having any chest pain, no nausea no vomiting no abdominal pain and no no drainage from the right lower abdominal wall Patient did have a white count of 8.3 creatinine is 0.82 Objective - Vital Signs Vital signs: Vital Signs Temp 97.8 F 07/10/23 12:20 Pulse 71 07/10/23 12:20 Resp 16 07/10/23 12:20 BP 100/62 07/10/23 12:20 Pulse Ox 99 07/10/23 12:20 FiO2 Intake & Output 07/09/23 07/10/23 07/10/23 18:59 06:59 18:59 Intake Total 360 Balance 360 Weight 65.771 kg 65.771 kg Intake: Oral 360 Other: Voiding Method Toilet Toilet Toilet # Voids 3 2 - Exam GENERAL DESCRIPTION: A middle-age male lying in bed in no distress RESPIRATORY SYSTEM: Unlabored breathing , decreased breath sounds at bases HEART: S1 S2 regular rate and rhythm , ABDOMEN: Soft , right lower abdominal wall with area of induration has slightly decreased and no drainage was noticed EXTREMITIES: No edema feet - Labs CBC & Chem 7: 07/10/23 15:29 07/10/23 15:29 Labs: Abnormal Lab Results - Last 24 Hours (Table) 07/09/23 07/10/23 07/10/23 Range/Units 16:52 02:18 02:47 POC Glucose (mg/dL) 248 H 55 L 57 L (70-110) mg/dL 07/10/23 Range/Units 07:07 POC Glucose (mg/dL) 152 H (70-110) mg/dL Assessment and Plan (1) Abdominal wall cellulitis Current Visit: Yes Status: Acute Code(s): L03.311 - CELLULITIS OF ABDOMINAL WALL SNOMED Code(s): 58736096 (2) Abscess of abdominal wall Current Visit: Yes Status: Acute Priority: High Code(s): L02.211 - CUTANEOUS ABSCESS OF ABDOMINAL WALL SNOMED Code(s): 98094228 Plan: 1patient with a right lower abdominal wall area of induration and swelling and redness concerning for small abscess at the insulin pump needle insertion site and will need to cover for the gram-positive skin kinjal to the likely pathogen. 2 surgical team has signed off not recommending any surgical drainage 3Patient to finish therapy with a short course of oral Augmentin and doxycycline and close outpatient follow-up this was discussed with the [employer] for admitting team Dictation was produced using [employer] dictation software. please excuse any grammatical, word or spelling errors. Time with Patient: Less than 30
[2023-07-10 20:12] LABS: Glucose,Whole Blood 91 mg/dL (70-110)
[2023-07-10] MEDS ORDERED: INSULIN DETEMIR (LEVEMIR) 100 UNIT/ML SYR SQ SCH (21:00)
[2023-07-10] MEDS ORDERED: VANCOMYCIN 1,000 MG in SODIUM CHLORIDE 0.9% 250 ML IVPB SCH (21:00)
[2023-07-10] MEDS: ATORVASTATIN 80 MG TAB PO SCH (21:54)
[2023-07-10] MEDS: PANTOPRAZOLE 40 MG/10 ML VIAL IVP SCH (21:54)
[2023-07-10] MEDS: DOXYCYCLINE 100 MG CAP PO SCH (21:55)
[2023-07-10] MEDS: AMOXIC-POT CLAV 875-125MG 1 EACH TAB PO SCH (21:55)
[2023-07-11] MEDS: HYDROcodone/APAP 5-325MG 1 EACH TAB PO PRN ×3 (00:08→17:22)
[2023-07-11 01:57] LABS: Glucose,Whole Blood 33 mg/dL (70-110)
[2023-07-11 02:23] LABS: Glucose,Whole Blood 167 mg/dL (70-110)
[2023-07-11] MEDS: LEVOTHYROXINE 75 MCG TAB PO SCH (05:46)
[2023-07-11 07:30] LABS: Glucose,Whole Blood 138 mg/dL (70-110)
[2023-07-11] MEDS: INSULIN ASPART (NovoLOG) 100 UNIT/ML VIAL SQ SCH ×4 (07:39→21:01)
[2023-07-11 08:50] LABS: Anisocytosis Slight; HCT 26.2 % (39.0-53.0); HGB 8.9 gm/dL (13.0-17.5); MCH 30.9 pg (25.0-35.0); MCHC 33.7 g/dL (31.0-37.0); MCV 91.6 fL (80.0-100.0); Macrocytosis Slight; Mean Platelet Volume 7.5; Platelet Count 363 k/uL (150-450); RBC 2.87 m/uL (4.30-5.90); RDW 19.1 % (11.5-15.5); WBC 8.4 k/uL (3.8-10.6)
[2023-07-11 08:51] LABS: ALT 18 U/L (4-49); AST 34 U/L (17-59); African American GFR (CKD) >90 (>60 ml/min/1.73 sqM); Albumin 2.8 g/dL (3.5-5.0); Alkaline Phosphatase 145 U/L (38-126); Anion Gap 4 mmol/L; Blood Urea Nitrogen 14 mg/dL (9-20); Calcium 8.5 mg/dL (8.4-10.2); Carbon Dioxide 29 mmol/L (22-30); Chloride 104 mmol/L (98-107); Globulin 2.7 g/dL; Glucose 125 mg/dL (74-99); Non-African American GFR(CKD) >90 (>60 ml/min/1.73 sqM); Potassium 4.7 mmol/L (3.5-5.1); Sodium 137 mmol/L (137-145); Total Bilirubin 0.2 mg/dL (0.2-1.3); Total Protein 5.5 g/dL (6.3-8.2)
[2023-07-11] MEDS: INSULIN DETEMIR (LEVEMIR) 100 UNIT/ML SYR SQ SCH ×2 (08:59→21:02)
[2023-07-11] MEDS: DOXYCYCLINE 100 MG CAP PO SCH ×2 (08:59→21:00)
[2023-07-11] MEDS: AMOXIC-POT CLAV 875-125MG 1 EACH TAB PO SCH ×2 (09:00→21:00)
[2023-07-11] MEDS: HEPARIN SODIUM,PORCINE 5,000 UNIT/ML 1 ML VIAL SQ SCH ×2 (09:00→21:00)
[2023-07-11] MEDS: ASPIRIN 81 MG PO SCH (09:00)
[2023-07-11] MEDS: CLOPIDOGREL 75 MG TAB PO SCH (09:00)
[2023-07-11] MEDS: MULTIVITAMINS, THERA 1 EACH TAB PO SCH (09:00)
[2023-07-11] MEDS: METOPROLOL SUCCINATE (ER) 50 MG TAB.ER.24H PO SCH ×2 (09:00→21:00)
[2023-07-11] MEDS: CHOLECALCIFEROL 25 MCG (1000 IU) TABLET PO SCH (09:00)
[2023-07-11] MEDS: MEMANTINE 10 MG TAB PO SCH (09:00)
[2023-07-11] MEDS: FOLIC ACID 1 MG TAB PO SCH (09:00)
[2023-07-11] MEDS: MEGESTROL 40 MG TAB PO SCH (09:01)
[2023-07-11] MEDS ORDERED: SENNOSIDES-DOCUSATE SODIUM 1 EACH TAB PO PRN (09:34)
[2023-07-11] MEDS: PANTOPRAZOLE 40 MG/10 ML VIAL IVP SCH ×2 (10:04→21:00)
[2023-07-11] MEDS: ONDANSETRON 4 MG/2 ML VIAL IVP PRN ×2 (10:05→17:22)
[2023-07-11 12:35] LABS: Glucose,Whole Blood 243 mg/dL (70-110)
[2023-07-11 13:12] LABS: Band Neutrophils % 1 %; Eosinophils # (M) 0.08 k/uL (0-0.7); Lymphocytes # (M) 0.59 k/uL (1.0-4.8); Monocytes # (M) 1.01 k/uL (0-1.0); Neutrophils % (M) 79 %; Nucleated Red Blood Cells 0 /100 WBC (0-0); Total Cells Counted 100
--- NOTE | 2023-07-11 15:13 | PN ---
PROGRESS NOTE DATE OF SERVICE: 07/10/2023 SUBJECTIVE: This is a 62-year-old gentleman with abdominal wall cellulitis and abscess, improved significantly. The patient stated he is ready for discharge. Patient had vomiting. No chest pain, no palpitation. PHYSICAL EXAMINATION: VITAL SIGNS: Stable. CARDIOVASCULAR: S1, S2. ABDOMEN: Soft. Abdominal wall cellulitis present. NERVOUS SYSTEM: Nonfocal. LABORATORY DATA: Reviewed. ASSESSMENT: 1. Abdominal wall cellulitis and abscess, insulin pump infection site, on IV antibiotics. 2. Hypothyroidism. 3. Acute gastritis and vomiting. 4. Weakness and fatigue. 5. Hyperglycemia. RECOMMENDATIONS: Recommend to continue current management. continue symptomatic treatment. Otherwise, at this time, I will cancel discharge. Repeat labs, chest x-ray. Closely monitor. Continue with antibiotics. Prognosis guarded. Further recommendations to follow. MMODL / IJN: [id number] /
[2023-07-11 17:26] LABS: Glucose,Whole Blood 342 mg/dL (70-110)
--- NOTE | 2023-07-11 18:01 | P.PN ---
Subjective Progress Note Date: 07/11/23 Principal diagnosis: Abdominal wall cellulitis/abscess Patient is a 62-year-old male with a past medical history significant for diabetes mellitus patient did have a insulin pump for management of his underlying diabetes patient did develop swelling redness at the insulin pump needle insertion site on right lower abdominal area with concern for small abscess at that location. On today's evaluation that is 07/11/2023, the patient remains to be afebrile, the patient is breathing comfortably on 2 L nasal cannula oxygen, the patient denies chest pain has been complaining of some shortness of breath and occasional cough, did have some nausea, vomiting last night, no abdominal pain and no diarrhea has been reported. Patient did have a white count of 8.4 creatinine is 0.88, chest x-ray with patchy interstitial infiltrate right mid and lower lung Objective - Vital Signs Vital signs: Vital Signs Temp 98.5 F 07/11/23 13:48 Pulse 82 07/11/23 13:48 Resp 18 07/11/23 13:48 BP 122/72 07/11/23 13:48 Pulse Ox 98 07/11/23 13:48 FiO2 Intake & Output 07/10/23 07/11/23 07/11/23 18:59 06:59 18:59 Intake Total 410 Balance 410 Weight 65.771 kg Intake: Intake, IV Titration 50 Amount cefTRIAXone 2 gm In 50 Sodium Chloride 0.9% 50 ml @ 100 mls/hr IVPB Q24H [facility] Rx#:[id number] Oral 360 Other: Voiding Method Toilet Toilet Toilet # Voids 1 1 # Bowel Movements 1 - Exam GENERAL DESCRIPTION: A middle-age male lying in bed in no distress RESPIRATORY SYSTEM: Unlabored breathing , decreased breath sounds at bases HEART: S1 S2 regular rate and rhythm , ABDOMEN: Soft , right lower abdominal wall with area of induration has slightly decreased and no drainage was noticed EXTREMITIES: No edema feet - Labs CBC & Chem 7: 07/11/23 06:36 07/11/23 06:36 Labs: Abnormal Lab Results - Last 24 Hours (Table) 07/11/23 07/11/23 07/11/23 Range/Units 01:54 02:16 06:36 RBC (4.30-5.90) m/uL Hgb (13.0-17.5) gm/dL Hct (39.0-53.0) % RDW (11.5-15.5) % Lymphocytes # (Manual) (1.0-4.8) k/uL Monocytes # (Manual) (0-1.0) k/uL Glucose 125 H (74-99) mg/dL POC Glucose (mg/dL) 33 L 167 H (70-110) mg/dL Alkaline Phosphatase 145 H (38-126) U/L Total Protein 5.5 L (6.3-8.2) g/dL Albumin 2.8 L (3.5-5.0) g/dL 07/11/23 07/11/23 07/11/23 Range/Units 06:36 07:28 12:33 RBC 2.87 L (4.30-5.90) m/uL Hgb 8.9 L (13.0-17.5) gm/dL Hct 26.2 L (39.0-53.0) % RDW 19.1 H (11.5-15.5) % Lymphocytes # (Manual) 0.59 L (1.0-4.8) k/uL Monocytes # (Manual) 1.01 H (0-1.0) k/uL Glucose (74-99) mg/dL POC Glucose (mg/dL) 138 H 243 H (70-110) mg/dL Alkaline Phosphatase (38-126) U/L Total Protein (6.3-8.2) g/dL Albumin (3.5-5.0) g/dL 07/11/23 Range/Units 17:24 RBC (4.30-5.90) m/uL Hgb (13.0-17.5) gm/dL Hct (39.0-53.0) % RDW (11.5-15.5) % Lymphocytes # (Manual) (1.0-4.8) k/uL Monocytes # (Manual) (0-1.0) k/uL Glucose (74-99) mg/dL POC Glucose (mg/dL) 342 H (70-110) mg/dL Alkaline Phosphatase (38-126) U/L Total Protein (6.3-8.2) g/dL Albumin (3.5-5.0) g/dL Assessment and Plan (1) Abdominal wall cellulitis Current Visit: Yes Status: Acute Code(s): L03.311 - CELLULITIS OF ABDOMINAL WALL SNOMED Code(s): 17830379 (2) Abscess of abdominal wall Current Visit: Yes Status: Acute Priority: High Code(s): L02.211 - CUTANEOUS ABSCESS OF ABDOMINAL WALL SNOMED Code(s): 39799249 Plan: 1patient with a right lower abdominal wall area of induration and swelling and redness concerning for small abscess at the insulin pump needle insertion site and will need to cover for the gram-positive skin kinjal to the likely pathogen. 2 surgical team has signed off not recommending any surgical drainage 3Patient discharge plan hold because of his nausea vomiting last night, patient to continue with oral Augmentin and doxycycline and monitor his clinical course closely Dictation was produced using [employer] dictation software. please excuse any grammatical, word or spelling errors. Time with Patient: Less than 30
--- NOTE | 2023-07-11 19:55 | PN ---
PROGRESS NOTE DATE OF SERVICE: 07/11/2023 SUBJECTIVE: This is a 62-year-old gentleman, who was admitted with abdominal wall cellulitis and abscess, had vomiting history. No chest pain. No palpitation. The chest x-ray shows some infiltrate on the right side. PHYSICAL EXAMINATION: VITAL SIGNS: Pulse is 75, blood pressure 130/76, respirations 18. CHEST: A few scattered rhonchi and crackles. ABDOMEN: Soft. NERVOUS SYSTEM: Nonfocal. LABORATORY DATA: Noted. ASSESSMENT: 1. Abdominal wall cellulitis and abscess at insulin pump infection site, on IV antibiotics. 2. Hypothyroidism. 3. Weakness and fatigue. 4. Hyperglycemia. 5. History of coronary artery disease. 6. Congestive heart failure. 7. Metastatic lung cancer. RECOMMENDATIONS: Recommend to continue current management. Continue symptomatic treatment. Otherwise, at this time, repeat labs. Prognosis guarded. Further recommendations to follow. MMODL / IJN: [id number] /
[2023-07-11 20:46] LABS: Glucose,Whole Blood 294 mg/dL (70-110)
[2023-07-11] MEDS: ATORVASTATIN 80 MG TAB PO SCH (21:00)
[2023-07-12] MEDS: HYDROcodone/APAP 5-325MG 1 EACH TAB PO PRN ×3 (00:47→21:19)
[2023-07-12 02:39] LABS: Glucose,Whole Blood 138 mg/dL (70-110)
[2023-07-12] MEDS: LEVOTHYROXINE 75 MCG TAB PO SCH (05:31)
[2023-07-12 07:25] LABS: Glucose,Whole Blood 84 mg/dL (70-110)
[2023-07-12] MEDS: INSULIN DETEMIR (LEVEMIR) 100 UNIT/ML SYR SQ SCH ×2 (08:07→21:23)
[2023-07-12] MEDS: CHOLECALCIFEROL 25 MCG (1000 IU) TABLET PO SCH (08:07)
[2023-07-12] MEDS: METOPROLOL SUCCINATE (ER) 50 MG TAB.ER.24H PO SCH ×2 (08:08→21:21)
[2023-07-12] MEDS: AMOXIC-POT CLAV 875-125MG 1 EACH TAB PO SCH ×2 (08:08→21:20)
[2023-07-12] MEDS: MULTIVITAMINS, THERA 1 EACH TAB PO SCH (08:08)
[2023-07-12] MEDS: ASPIRIN 81 MG PO SCH (08:08)
[2023-07-12] MEDS: FOLIC ACID 1 MG TAB PO SCH (08:09)
[2023-07-12] MEDS: ONDANSETRON 4 MG/2 ML VIAL IVP PRN ×3 (08:09→21:41)
[2023-07-12] MEDS: CLOPIDOGREL 75 MG TAB PO SCH (08:09)
[2023-07-12] MEDS: PANTOPRAZOLE 40 MG/10 ML VIAL IVP SCH ×2 (08:09→21:21)
[2023-07-12] MEDS: HEPARIN SODIUM,PORCINE 5,000 UNIT/ML 1 ML VIAL SQ SCH ×2 (08:09→21:20)
[2023-07-12] MEDS: MEMANTINE 10 MG TAB PO SCH (08:10)
[2023-07-12] MEDS: DOXYCYCLINE 100 MG CAP PO SCH ×2 (08:10→21:20)
[2023-07-12] MEDS: MEGESTROL 40 MG TAB PO SCH (08:10)
[2023-07-12] MEDS: INSULIN ASPART (NovoLOG) 100 UNIT/ML VIAL SQ SCH ×4 (08:11→21:20)
[2023-07-12 09:03] LABS: ALT 18 U/L (4-49); AST 32 U/L (17-59); African American GFR (CKD) >90 (>60 ml/min/1.73 sqM); Albumin/Globulin Ratio 1.1; Alkaline Phosphatase 153 U/L (38-126); Anion Gap 4 mmol/L; Blood Urea Nitrogen 15 mg/dL (9-20); Calcium 8.6 mg/dL (8.4-10.2); Carbon Dioxide 32 mmol/L (22-30); Chloride 103 mmol/L (98-107); Globulin 2.8 g/dL; Glucose 70 mg/dL (74-99); Non-African American GFR(CKD) >90 (>60 ml/min/1.73 sqM); Potassium 4.3 mmol/L (3.5-5.1); Sodium 139 mmol/L (137-145); Total Bilirubin 0.3 mg/dL (0.2-1.3); Total Protein 5.8 g/dL (6.3-8.2)
[2023-07-12 09:13] LABS: Anisocytosis Slight; HCT 26.5 % (39.0-53.0); MCH 30.8 pg (25.0-35.0); MCHC 33.9 g/dL (31.0-37.0); MCV 90.7 fL (80.0-100.0); Macrocytosis Slight; Platelet Count 372 k/uL (150-450); RBC 2.93 m/uL (4.30-5.90); RDW 19.8 % (11.5-15.5)
[2023-07-12 09:33] LABS: C Reactive Protein 2.6 mg/dL (<1.0)
[2023-07-12 10:34] LABS: Band Neutrophils % 1 %; Eosinophils # (M) 0.08 k/uL (0-0.7); Lymphocytes # (M) 1.12 k/uL (1.0-4.8); Monocytes # (M) 0.96 k/uL (0-1.0); Neutrophils % (M) 72 %; Nucleated Red Blood Cells 0 /100 WBC (0-0); Total Cells Counted 100
[2023-07-12 12:21] LABS: Glucose,Whole Blood 222 mg/dL (70-110)
[2023-07-12 17:40] LABS: Glucose,Whole Blood 226 mg/dL (70-110)
--- NOTE | 2023-07-12 18:17 | P.PN ---
Subjective Progress Note Date: 07/12/23 Principal diagnosis: Abdominal wall cellulitis/abscess Patient is a 62-year-old male with a past medical history significant for diabetes mellitus patient did have a insulin pump for management of his underlying diabetes patient did develop swelling redness at the insulin pump needle insertion site on right lower abdominal area with concern for small abscess at that location. On today's evaluation that is 07/12/2023, the patient continues to be afebrile, the patient is breathing comfortably and denies any shortness of breath no chest pain or cough, the patient denies having any nausea and vomiting right lower abdominal pain and induration has decreased intensity and no diarrhea Patient did have a white count of 8.0, creatinine is 0.88, chest x-ray with patchy interstitial infiltrate right mid and lower lung Objective - Vital Signs Vital signs: Vital Signs Temp 98.2 F 07/12/23 14:46 Pulse 73 07/12/23 14:46 Resp 16 07/12/23 14:46 BP 130/78 07/12/23 14:46 Pulse Ox 98 07/12/23 14:46 FiO2 Intake & Output 07/11/23 07/12/23 07/12/23 18:59 06:59 18:59 Intake Total 900 Balance 900 Intake: Oral 900 Other: Voiding Method Toilet Toilet Toilet # Voids 2 2 - Exam GENERAL DESCRIPTION: A middle-age male lying in bed in no distress RESPIRATORY SYSTEM: Unlabored breathing , decreased breath sounds at bases HEART: S1 S2 regular rate and rhythm , ABDOMEN: Soft , right lower abdominal wall with area of induration has slightly decreased and no drainage was noticed EXTREMITIES: No edema feet - Labs CBC & Chem 7: 07/12/23 07:26 07/12/23 07:26 Labs: Abnormal Lab Results - Last 24 Hours (Table) 07/11/23 07/11/23 07/12/23 Range/Units 17:24 20:45 02:38 RBC (4.30-5.90) m/uL Hgb (13.0-17.5) gm/dL Hct (39.0-53.0) % RDW (11.5-15.5) % Carbon Dioxide (22-30) mmol/L Glucose (74-99) mg/dL POC Glucose (mg/dL) 342 H 294 H 138 H (70-110) mg/dL Alkaline Phosphatase (38-126) U/L C-Reactive Protein (<1.0) mg/dL Total Protein (6.3-8.2) g/dL Albumin (3.5-5.0) g/dL 07/12/23 07/12/23 07/12/23 Range/Units 07:26 07:26 12:20 RBC 2.93 L (4.30-5.90) m/uL Hgb 9.0 L (13.0-17.5) gm/dL Hct 26.5 L (39.0-53.0) % RDW 19.8 H (11.5-15.5) % Carbon Dioxide 32 H (22-30) mmol/L Glucose 70 L (74-99) mg/dL POC Glucose (mg/dL) 222 H (70-110) mg/dL Alkaline Phosphatase 153 H (38-126) U/L C-Reactive Protein 2.6 H (<1.0) mg/dL Total Protein 5.8 L (6.3-8.2) g/dL Albumin 3.0 L (3.5-5.0) g/dL Assessment and Plan (1) Abdominal wall cellulitis Current Visit: Yes Status: Acute Code(s): L03.311 - CELLULITIS OF ABDOMINAL WALL SNOMED Code(s): 88454292 (2) Abscess of abdominal wall Current Visit: Yes Status: Acute Priority: High Code(s): L02.211 - CUTANEOUS ABSCESS OF ABDOMINAL WALL SNOMED Code(s): 29654783 Plan: 1patient with a right lower abdominal wall area of induration and swelling and redness concerning for small abscess at the insulin pump needle insertion site and will need to cover for the gram-positive skin kinjal to the likely pathogen. 2 surgical team has signed off not recommending any surgical drainage 3Patient seemed to be clinically improving and we'll continue the patient on oral Augmentin and doxycycline, plan for about a week of antibiotics on discharge Dictation was produced using [employer] dictation software. please excuse any grammatical, word or spelling errors. Time with Patient: Less than 30
[2023-07-12 19:49] LABS: Glucose,Whole Blood 193 mg/dL (70-110)
[2023-07-12] MEDS: ATORVASTATIN 80 MG TAB PO SCH (21:20)
[2023-07-13 02:13] LABS: Glucose,Whole Blood 72 mg/dL (70-110)
[2023-07-13] MEDS: ONDANSETRON 4 MG/2 ML VIAL IVP PRN ×5 (03:49→22:32)
[2023-07-13] MEDS: HYDROcodone/APAP 5-325MG 1 EACH TAB PO PRN (03:49)
--- NOTE | 2023-07-13 04:07 | PN ---
PROGRESS NOTE DATE OF SERVICE: 07/11/2023 SUBJECTIVE: This is a 62-year-old gentleman, who was admitted with abdominal wall cellulitis. Has some nausea yesterday. No chest pain. No palpitations. No fever. PHYSICAL EXAMINATION: VITAL SIGNS: Pulse is 79, blood pressure 118/76, respirations 16. CHEST: Clear to auscultation. CARDIOVASCULAR: S1, S2. ABDOMEN: Soft, right-sided abdominal wall abscess present. LABORATORY DATA: Reviewed. ASSESSMENT: 1. Abdominal wall cellulitis and abscess at the insulin pump site infection, on IV antibiotics. 2. Hypothyroidism. 3. Acute gastritis and vomiting. 4. Weakness and fatigue. 5. Hyperglycemia. 6. Multiple medical issues. RECOMMENDATIONS: Recommend to continue current management and treatment, otherwise repeat labs tomorrow. Possible discharge, on outpatient antibiotics per ID tomorrow. MMODL / IJN: [id number] /
[2023-07-13] MEDS: LEVOTHYROXINE 75 MCG TAB PO SCH (05:58)
[2023-07-13 07:15] LABS: Glucose,Whole Blood 53 mg/dL (70-110)
[2023-07-13] MEDS: INSULIN ASPART (NovoLOG) 100 UNIT/ML VIAL SQ SCH ×4 (07:35→20:22)
[2023-07-13 07:50] LABS: Glucose,Whole Blood 45 mg/dL (70-110)
[2023-07-13] MEDS: HEPARIN SODIUM,PORCINE 5,000 UNIT/ML 1 ML VIAL SQ SCH ×2 (08:10→20:22)
[2023-07-13] MEDS: FOLIC ACID 1 MG TAB PO SCH (08:11)
[2023-07-13] MEDS: MEMANTINE 10 MG TAB PO SCH (08:11)
[2023-07-13] MEDS: METOPROLOL SUCCINATE (ER) 50 MG TAB.ER.24H PO SCH ×2 (08:11→20:22)
[2023-07-13] MEDS: ASPIRIN 81 MG PO SCH (08:11)
[2023-07-13] MEDS: DOXYCYCLINE 100 MG CAP PO SCH ×2 (08:11→20:24)
[2023-07-13] MEDS: AMOXIC-POT CLAV 875-125MG 1 EACH TAB PO SCH ×2 (08:11→20:21)
[2023-07-13] MEDS: CLOPIDOGREL 75 MG TAB PO SCH (08:11)
[2023-07-13] MEDS: CHOLECALCIFEROL 25 MCG (1000 IU) TABLET PO SCH (08:11)
[2023-07-13] MEDS: MULTIVITAMINS, THERA 1 EACH TAB PO SCH (08:11)
[2023-07-13] MEDS: MEGESTROL 40 MG TAB PO SCH (08:12)
[2023-07-13 08:15] LABS: Glucose,Whole Blood 50 mg/dL (70-110)
[2023-07-13] MEDS: INSULIN DETEMIR (LEVEMIR) 100 UNIT/ML SYR SQ SCH (08:15)
[2023-07-13] MEDS: PANTOPRAZOLE 40 MG/10 ML VIAL IVP SCH ×2 (08:15→20:22)
[2023-07-13 08:35] LABS: Glucose,Whole Blood 67 mg/dL (70-110)
[2023-07-13 08:41] LABS: Basophils # (A) 0.07 X 10*3/uL (0.00-0.10); Basophils % (A) 0.8 %; Eosinophils # (A) 0.03 X 10*3/uL (0.04-0.35); Eosinophils % (A) 0.3 %; HCT 25.7 % (39.6-50.0); HGB 8.4 d/dL (13.0-17.0); Lymphocytes % (A) 14.8 %; MCH 30.3 pg (27.0-32.0); MCHC 32.7 d/dL (32.0-37.0); MCV 92.8 FL (80.0-97.0); Mean Platelet Volume 9.6 FL (9.5-12.2); Monocytes # (A) 1.42 X 10*3/uL (0.20-1.00); Monocytes % (A) 16.1 %; NRBC Per 100 WBC 0 X 10*3/uL (0.00-0.01); Neutrophils # (A) 5.93 X 10*3/uL (1.80-7.70); Neutrophils % (A) 67.3 %; Platelet Count 295 X 10*3/uL (140-440); RBC 2.77 X 10*6/uL (4.40-5.60); RDW 18.4 % (11.5-14.5); WBC 8.81 X 10*3/uL (4.50-10.00)
[2023-07-13 08:59] LABS: Blood Urea Nitrogen 13.4 mg/dL (9.0-27.0); Calcium 8.7 mg/dL (8.7-10.3); Chloride 102 mmol/L (96-109); Glucose 57 mg/dL (70-110); Potassium 4.3 mmol/L (3.5-5.5); Sodium 141 mmol/L (135-145)
[2023-07-13 09:04] LABS: Glucose,Whole Blood 108 mg/dL (70-110)
[2023-07-13 11:55] LABS: Glucose,Whole Blood 241 mg/dL (70-110)
--- NOTE | 2023-07-13 12:45 | P.PN ---
Subjective Progress Note Date: 07/13/23 Principal diagnosis: Abdominal wall cellulitis/abscess Patient is a 62-year-old male with a past medical history significant for diabetes mellitus patient did have a insulin pump for management of his underlying diabetes patient did develop swelling redness at the insulin pump needle insertion site on right lower abdominal area with concern for small abscess at that location. On today's evaluation that is 07/13/2023, the patient remains to be afebrile, the patient is breathing comfortably , the patient denies having any chest pain or cough, the patient has been complaining of some nausea but no vomiting right lower abdominal pain and induration has decreased intensity and there is no drainage Patient did have a white count of 8.81, creatinine is 1.0, Objective - Vital Signs Vital signs: Vital Signs Temp 97.8 F 07/13/23 11:52 Pulse 80 07/13/23 11:52 Resp 18 07/13/23 11:52 BP 107/68 07/13/23 11:52 Pulse Ox 99 07/13/23 11:52 FiO2 Intake & Output 07/12/23 07/13/23 07/13/23 18:59 06:59 18:59 Output Total 200 Balance -200 Weight 65.771 kg Output: Urine 200 Other: Voiding Method Toilet Toilet Toilet # Voids 2 # Bowel Movements 2 - Exam GENERAL DESCRIPTION: A middle-age male lying in bed in no distress RESPIRATORY SYSTEM: Unlabored breathing , decreased breath sounds at bases HEART: S1 S2 regular rate and rhythm , ABDOMEN: Soft , right lower abdominal wall with area of induration has slightly decreased and no drainage was noticed EXTREMITIES: No edema feet - Labs CBC & Chem 7: 07/13/23 05:32 07/13/23 05:32 Labs: Abnormal Lab Results - Last 24 Hours (Table) 07/12/23 07/12/23 07/12/23 Range/Units 07:26 17:38 19:48 RBC (4.40-5.60) X 10*6/uL Hgb (13.0-17.0) d/dL Hct (39.6-50.0) % RDW (11.5-14.5) % Monocytes # (0.20-1.00) X 10*3/uL Eosinophils # (0.04-0.35) X 10*3/uL Glucose (70-110) mg/dL POC Glucose (mg/dL) 226 H 193 H (70-110) mg/dL Procalcitonin 0.15 H (0.02-0.09) ng/mL 07/13/23 07/13/23 07/13/23 Range/Units 05:32 05:32 07:14 RBC 2.77 L (4.40-5.60) X 10*6/uL Hgb 8.4 L (13.0-17.0) d/dL Hct 25.7 L (39.6-50.0) % RDW 18.4 H (11.5-14.5) % Monocytes # 1.42 H (0.20-1.00) X 10*3/uL Eosinophils # 0.03 L (0.04-0.35) X 10*3/uL Glucose 57 L (70-110) mg/dL POC Glucose (mg/dL) 53 L (70-110) mg/dL Procalcitonin (0.02-0.09) ng/mL 07/13/23 07/13/23 07/13/23 Range/Units 07:49 08:13 08:33 RBC (4.40-5.60) X 10*6/uL Hgb (13.0-17.0) d/dL Hct (39.6-50.0) % RDW (11.5-14.5) % Monocytes # (0.20-1.00) X 10*3/uL Eosinophils # (0.04-0.35) X 10*3/uL Glucose (70-110) mg/dL POC Glucose (mg/dL) 45 L 50 L 67 L (70-110) mg/dL Procalcitonin (0.02-0.09) ng/mL 07/13/23 Range/Units 11:54 RBC (4.40-5.60) X 10*6/uL Hgb (13.0-17.0) d/dL Hct (39.6-50.0) % RDW (11.5-14.5) % Monocytes # (0.20-1.00) X 10*3/uL Eosinophils # (0.04-0.35) X 10*3/uL Glucose (70-110) mg/dL POC Glucose (mg/dL) 241 H (70-110) mg/dL Procalcitonin (0.02-0.09) ng/mL Assessment and Plan (1) Abdominal wall cellulitis Current Visit: Yes Status: Acute Code(s): L03.311 - CELLULITIS OF ABDOMINAL WALL SNOMED Code(s): 97771354 (2) Abscess of abdominal wall Current Visit: Yes Status: Acute Priority: High Code(s): L02.211 - CUTANEOUS ABSCESS OF ABDOMINAL WALL SNOMED Code(s): 97743064 Plan: 1patient with a right lower abdominal wall area of induration and swelling and redness concerning for small abscess at the insulin pump needle insertion site and will need to cover for the gram-positive skin kinjal to the likely pathogen. 2 surgical team has signed off not recommending any surgical drainage 3Patient has short-term improvement as for his abdominal wall cellulitis, patient will continue the patient on oral Augmentin and doxycycline, plan for 7 days of antibiotics on discharge Dictation was produced using [employer] dictation software. please excuse any grammatical, word or spelling errors. Time with Patient: Less than 30
--- NOTE | 2023-07-13 15:02 | P.PN ---
Subjective Progress Note Date: 07/13/23 Principal diagnosis: Weakness, abscess. Non-small cell lung cancer In follow-up today patient reports persistent nausea, started a few days ago, vomiting up until yesterday, none so far today. He reports anti-emetics only help a little bit, his appetite is significantly diminished but, today is the best he is 8 in several days. He reports a bowel movement yesterday. He has mild epigastric pain, the site of the abscess on his right side is only mildly tender, no drainage. No recent fevers. Objective - Vital Signs Vital signs: Vital Signs Temp 97.8 F 07/13/23 11:52 Pulse 80 07/13/23 11:52 Resp 18 07/13/23 11:52 BP 107/68 07/13/23 11:52 Pulse Ox 99 07/13/23 11:52 FiO2 Intake & Output 07/12/23 07/13/23 07/13/23 18:59 06:59 18:59 Output Total 200 Balance -200 Weight 65.771 kg Output: Urine 200 Other: Voiding Method Toilet Toilet Toilet # Voids 2 # Bowel Movements 2 - Constitutional General appearance: Present: average body habitus, cooperative, no acute distress - EENT Eyes: Present: anicteric sclerae, EOMI ENT: Present: hearing grossly normal - Respiratory Details: Respirations even and unlabored at rest - Cardiovascular Details: Skin warm and dry to the touch, radial pulse 2+ - Gastrointestinal General gastrointestinal: Present: normal bowel sounds, soft. Absent: absent bowel sounds, decreased bowel sounds, distended, hepatomegaly, hyperactive bowel sounds, organomegaly, rigid, scaphoid, splenomegaly, tenderness, umbilical hernia, ventral hernia - Integumentary Integumentary: Present: normal - Neurologic Neurologic: Present: CNII-XII intact - Musculoskeletal Musculoskeletal: Present: strength equal bilaterally - Psychiatric Psychiatric: Present: A&O x's 3, appropriate affect, intact judgment & insight - Labs CBC & Chem 7: 07/13/23 05:32 07/13/23 05:32 Labs: Abnormal Lab Results - Last 24 Hours (Table) 07/12/23 07/12/23 07/12/23 Range/Units 07:26 17:38 19:48 RBC (4.40-5.60) X 10*6/uL Hgb (13.0-17.0) d/dL Hct (39.6-50.0) % RDW (11.5-14.5) % Monocytes # (0.20-1.00) X 10*3/uL Eosinophils # (0.04-0.35) X 10*3/uL Glucose (70-110) mg/dL POC Glucose (mg/dL) 226 H 193 H (70-110) mg/dL Procalcitonin 0.15 H (0.02-0.09) ng/mL 07/13/23 07/13/23 07/13/23 Range/Units 05:32 05:32 07:14 RBC 2.77 L (4.40-5.60) X 10*6/uL Hgb 8.4 L (13.0-17.0) d/dL Hct 25.7 L (39.6-50.0) % RDW 18.4 H (11.5-14.5) % Monocytes # 1.42 H (0.20-1.00) X 10*3/uL Eosinophils # 0.03 L (0.04-0.35) X 10*3/uL Glucose 57 L (70-110) mg/dL POC Glucose (mg/dL) 53 L (70-110) mg/dL Procalcitonin (0.02-0.09) ng/mL 07/13/23 07/13/23 07/13/23 Range/Units 07:49 08:13 08:33 RBC (4.40-5.60) X 10*6/uL Hgb (13.0-17.0) d/dL Hct (39.6-50.0) % RDW (11.5-14.5) % Monocytes # (0.20-1.00) X 10*3/uL Eosinophils # (0.04-0.35) X 10*3/uL Glucose (70-110) mg/dL POC Glucose (mg/dL) 45 L 50 L 67 L (70-110) mg/dL Procalcitonin (0.02-0.09) ng/mL 07/13/23 Range/Units 11:54 RBC (4.40-5.60) X 10*6/uL Hgb (13.0-17.0) d/dL Hct (39.6-50.0) % RDW (11.5-14.5) % Monocytes # (0.20-1.00) X 10*3/uL Eosinophils # (0.04-0.35) X 10*3/uL Glucose (70-110) mg/dL POC Glucose (mg/dL) 241 H (70-110) mg/dL Procalcitonin (0.02-0.09) ng/mL Assessment and Plan (1) Nausea and vomiting Current Visit: Yes Status: Acute Priority: High Code(s): R11.2 - NAUSEA WITH VOMITING, UNSPECIFIED SNOMED Code(s): 69247110 (2) Abscess of abdominal wall Current Visit: Yes Status: Acute Priority: High Code(s): L02.211 - CUTANEOUS ABSCESS OF ABDOMINAL WALL SNOMED Code(s): 85541846 (3) Weakness Current Visit: Yes Status: Acute Priority: Medium Code(s): R53.1 - WEAKNESS SNOMED Code(s): 39699786 (4) Adenocarcinoma of lung, stage 4 Current Visit: Yes Status: Chronic Priority: High Code(s): C34.90 - MALIGNANT NEOPLASM OF UNSP PART OF UNSP BRONCHUS OR LUNG SNOMED Code(s): 103185653 Plan: Nausea and vomiting -Started about 2 days ago, persists, Unclear etiology -CT of the abdomen with IV only contrast ordered Abdominal wall abscess -Secondary to subcutaneous diabetic monitor. Infectious disease following, antibiotics ordered Weakness -Secondary to above infection -Improving. Pt is able to ambulate back and forth to the bathroom independently Metastatic adenocarcinoma of the lung -Completed cycle 4 of carboplatin/Alimta/Keytruda 06/15/2023 -It was recommended pt receive at least 2-3 additional cycles of chemo given his first 2 cycles did not contain carboplatin due to national chemotherapy shortage -This will be followed by repeat imaging to assess treatment response -Next cycle scheduled for 07/07/2023, will be rescheduled 4 after patient has completed antibiotics and been reassessed to ensure that he has recovered adequately to resume therapy. Appointment date and time in the chart. attests: I seen and examined patient, performed H&P, developed impression and plan of care. Discussed with dictator. Agree with documentation, dictated as a scribe
--- NOTE | 2023-07-13 15:54 | P.PN ---
Subjective Progress Note Date: 07/10/23 07/10/2023 Patient seen and evaluated this morning being followed by infectious disease maintained on antibiotics and we'll transition to oral Augmentin and doxycycline. General surgery has cleared the patient for discharge. Blood sugars are currently controlled and working on discharge planning. Upon discharge patient reportedly developed nausea with vomiting and appears generally fatigued. Will obtain labs along with chest x-ray and reinitiate IV access and give some antinausea medications. Patient is afebrile with no reports of chest pain or shortness of breath. Review of systems: Constitutional: No reports of fatigue, fever, or chills Cardiovascular: No reports of chest pain or palpitations Respiratory: No reports of shortness of breath or cough GI: reports of nausea, with vomiting, no diarrhea, reports not much of an appetite : No reports of dysuria or retention Neurovascular: reports of generalized weakness All medications have been reviewed PHYSICAL EXAMINATION: GENERAL: The patient is alert and oriented x4, Well developed, ill-appearing, pale HEENT: Pupils are round and equally reacting to light. EOMI. no scleral icterus. No conjunctival pallor. Normocephalic, atraumatic. No pharyngeal erythema. No thyromegaly. CARDIOVASCULAR: S1 and S2 muffled PULMONARY: diminished breath sounds bilaterally with no wheezing or rhonchi noted. ABDOMEN: soft. Nontender on exam. non-distended, normoactive bowel sounds. No palpable organomegaly. MUSCULOSKELETAL: No joint swelling or deformity. EXTREMITIES: No cyanosis, clubbing, or pedal edema. NEUROLOGICAL: Gross neurological examination did not reveal any focal deficits. Diffuse weakness SKIN: No rashes. Pale Assessment: Abdominal wall cellulitis and abscess insulin pump injection site, currently on IV antibiotics Nausea with vomiting, possible acute gastritis Hypothyroidism history Weakness and fatigue Diabetes mellitus, type 1 insulin-dependent, uncontrolled with hyperglycemia History of coronary artery disease History of lung carcinoma History of CHF, unknown EF moderate protein calorie malnutrition with a BMI of 21.4 GI prophylaxis DVT prophylaxis Full code Plan: Patient was scheduled for discharge and has been cleared by consultations to continue on oral Augmentin along with doxycycline for a 10 day course per ID recommendations Right sided abscess site with minimal drainage appears to be improving and general surgery has signed off and cleared the patient for discharge Per nursing staff, upon discharge when going over paperwork patient developed nausea with vomiting. Patient having decreased oral intake and poorly controlled blood sugars will obtain chest x-ray along with repeat labs and reinitiate IV to give Zofran and monitor for improvement Dietary recommending appetite stimulant and will start low-dose Megace Patient currently has no primary care provider and mostly follows with oncology Dr. Heredia. Strongly recommend a primary care provider as well and resources emerson santoro on discharge Will follow-up with repeat labs in the a.m. and continue to monitor closely Encouraged small frequent meals and increased activity as tolerated Due to multiple complex medical issues, prognosis is guarded The impression and plan of care has been dictated by Juliana Currie, nurse practitioner as directed. MD Cinthia I have performed a history and examination and MDM of this patient, discussed the same with the dictator, and agree with the dictator's assessment and plan as written ,documented as a scribe. Based on total visit time, I have performed more than 50% of the visit. Any additional findings or plans will be noted. Objective - Vital Signs Vital signs: Vital Signs Temp 97.8 F 07/10/23 12:20 Pulse 71 07/10/23 12:20 Resp 16 07/10/23 12:20 BP 100/62 07/10/23 12:20 Pulse Ox 99 07/10/23 12:20 FiO2 Intake & Output 07/09/23 07/10/23 07/10/23 18:59 06:59 18:59 Intake Total 360 Balance 360 Weight 65.771 kg 65.771 kg Intake: Oral 360 Other: Voiding Method Toilet Toilet Toilet # Voids 3 2 - Labs CBC & Chem 7: 07/10/23 15:29 07/10/23 15:29 Labs: Abnormal Lab Results - Last 24 Hours (Table) 07/10/23 07/10/23 07/10/23 Range/Units 02:18 02:47 07:07 RBC (4.30-5.90) m/uL Hgb (13.0-17.5) gm/dL Hct (39.0-53.0) % RDW (11.5-15.5) % Lymphocytes # (1.0-4.8) k/uL Sodium (137-145) mmol/L POC Glucose (mg/dL) 55 L 57 L 152 H (70-110) mg/dL Alkaline Phosphatase (38-126) U/L Total Protein (6.3-8.2) g/dL Albumin (3.5-5.0) g/dL 07/10/23 07/10/23 Range/Units 15:29 15:29 RBC 2.94 L (4.30-5.90) m/uL Hgb 9.0 L (13.0-17.5) gm/dL Hct 26.7 L (39.0-53.0) % RDW 18.6 H (11.5-15.5) % Lymphocytes # 0.9 L (1.0-4.8) k/uL Sodium 136 L (137-145) mmol/L POC Glucose (mg/dL) (70-110) mg/dL Alkaline Phosphatase 175 H (38-126) U/L Total Protein 6.0 L (6.3-8.2) g/dL Albumin 3.1 L (3.5-5.0) g/dL
--- NOTE | 2023-07-13 15:59 | P.PN ---
Subjective Progress Note Date: 07/13/23 07/10/2023 Patient seen and evaluated this morning being followed by infectious disease maintained on antibiotics and we'll transition to oral Augmentin and doxycycline. General surgery has cleared the patient for discharge. Blood sugars are currently controlled and working on discharge planning. Upon discharge patient reportedly developed nausea with vomiting and appears generally fatigued. Will obtain labs along with chest x-ray and reinitiate IV access and give some antinausea medications. Patient is afebrile with no reports of chest pain or shortness of breath. 07/13/2023 Patient is seen in follow-up today mostly lying in the bed reports he has been getting up and walking to the bathroom. Discussed with him the option of possible rehab for continued weakness and patient reports he can handle it at home. Patient is refusing rehab at this time. Patient encouraged to increase ambulation and walk more frequently. Patient continues with nausea with no vomiting today and continues with diffuse abdominal pain and CT abdomen is ordered per oncology which is pending at this time. Patient also maintained on antibiotics with infectious disease following and will continue on oral on discharge. Patient denies any significant drainage or tenderness noted on the right abscess site. Patient's blood sugars have been low and will discontinue the nighttime dose of long-acting and continue with daily along with sliding scale. Patient does not have his insulin pump supplies here with him. Patient is afebrile with no reported chest pain or shortness of breath. Patient chronically wears oxygen outpatient and has supplies at home. Will await CT and discuss with further consultations about discharge planning. Review of systems: Constitutional: No reports of fatigue, fever, or chills Cardiovascular: No reports of chest pain or palpitations Respiratory: No reports of shortness of breath or cough GI: reports of nausea, with vomiting, no diarrhea, reports not much of an fabio etite : No reports of dysuria or retention Neurovascular: reports of generalized weakness All medications have been reviewed PHYSICAL EXAMINATION: GENERAL: The patient is alert and oriented x4, Well developed, ill-appearing, pale HEENT: Pupils are round and equally reacting to light. EOMI. no scleral icterus. No conjunctival pallor. Normocephalic, atraumatic. No pharyngeal erythema. No th yromegaly. CARDIOVASCULAR: S1 and S2 muffled PULMONARY: diminished breath sounds bilaterally with no wheezing or rhonchi noted. ABDOMEN: soft. Nontender on exam. non-distended, normoactive bowel sounds. No palpable organomegaly. MUSCULOSKELETAL: No joint swelling or deformity. EXTREMITIES: No cyanosis, clubbing, or pedal edema. NEUROLOGICAL: Gross neurological examination did not reveal any focal deficits. Diffuse weakness SKIN: No rashes. Pale Assessment: Abdominal wall cellulitis and abscess insulin pump injection site, currently on IV antibiotics Nausea with vomiting, likely acute gastritis Hypothyroidism history Weakness and fatigue Diabetes mellitus, type 1 insulin-dependent, uncontrolled with hyperglycemia History of coronary artery disease History of lung carcinoma History of CHF, unknown EF moderate protein calorie malnutrition with a BMI of 21.4 GI prophylaxis DVT prophylaxis Full code Plan: Patient being followed by multiple consultations maintained on IV antibiotics and we'll transition to oral antibiotics on discharge per ID recommendations Oncology following and has ordered CT abdomen is patient continues to report diffuse abdominal pain with not much of an appetite with some nausea and no vomiting. Patient CT pending at this time Encouraged increased activity as tolerated and getting up out of the bed more often Encouraged oral intake and will continue on Megace Follow-up labs ordered for a.m. Will discuss with further consultations with CT report about discharge planning in the next 24-48 hours Discussed possible rehab for continued weakness and patient refused. Due to multiple complex medical issues, prognosis is guarded The impression and plan of care has been dictated by Juliana Currie, nurse practitioner as directed. MD Cinthia I have performed a history and examination and MDM of this patient, discussed the same with the dictator, and agree with the dictator's assessment and plan as written ,documented as a scribe. Based on total visit time, I have performed more than 50% of the visit. Any additional findings or plans will be noted. Objective - Vital Signs Vital signs: Vital Signs Temp 97.8 F 07/13/23 11:52 Pulse 80 07/13/23 11:52 Resp 18 07/13/23 11:52 BP 107/68 07/13/23 11:52 Pulse Ox 99 07/13/23 11:52 FiO2 Intake & Output 07/12/23 07/13/23 07/13/23 18:59 06:59 18:59 Output Total 200 Balance -200 Weight 65.771 kg Output: Urine 200 Other: Voiding Method Toilet Toilet Toilet # Voids 2 # Bowel Movements 2 - Labs CBC & Chem 7: 07/13/23 05:32 07/13/23 05:32 Labs: Abnormal Lab Results - Last 24 Hours (Table) 07/12/23 07/12/23 07/12/23 Range/Units 07:26 17:38 19:48 RBC (4.40-5.60) X 10*6/uL Hgb (13.0-17.0) d/dL Hct (39.6-50.0) % RDW (11.5-14.5) % Monocytes # (0.20-1.00) X 10*3/uL Eosinophils # (0.04-0.35) X 10*3/uL Glucose (70-110) mg/dL POC Glucose (mg/dL) 226 H 193 H (70-110) mg/dL Procalcitonin 0.15 H (0.02-0.09) ng/mL 07/13/23 07/13/23 07/13/23 Range/Units 05:32 05:32 07:14 RBC 2.77 L (4.40-5.60) X 10*6/uL Hgb 8.4 L (13.0-17.0) d/dL Hct 25.7 L (39.6-50.0) % RDW 18.4 H (11.5-14.5) % Monocytes # 1.42 H (0.20-1.00) X 10*3/uL Eosinophils # 0.03 L (0.04-0.35) X 10*3/uL Glucose 57 L (70-110) mg/dL POC Glucose (mg/dL) 53 L (70-110) mg/dL Procalcitonin (0.02-0.09) ng/mL 07/13/23 07/13/23 07/13/23 Range/Units 07:49 08:13 08:33 RBC (4.40-5.60) X 10*6/uL Hgb (13.0-17.0) d/dL Hct (39.6-50.0) % RDW (11.5-14.5) % Monocytes # (0.20-1.00) X 10*3/uL Eosinophils # (0.04-0.35) X 10*3/uL Glucose (70-110) mg/dL POC Glucose (mg/dL) 45 L 50 L 67 L (70-110) mg/dL Procalcitonin (0.02-0.09) ng/mL 07/13/23 Range/Units 11:54 RBC (4.40-5.60) X 10*6/uL Hgb (13.0-17.0) d/dL Hct (39.6-50.0) % RDW (11.5-14.5) % Monocytes # (0.20-1.00) X 10*3/uL Eosinophils # (0.04-0.35) X 10*3/uL Glucose (70-110) mg/dL POC Glucose (mg/dL) 241 H (70-110) mg/dL Procalcitonin (0.02-0.09) ng/mL
[2023-07-13 17:07] LABS: Glucose,Whole Blood 376 mg/dL (70-110)
--- NOTE | 2023-07-13 17:55 | CT ---
EXAMINATION TYPE: CT abdomen w con CT DLP: 503.4 mGycm, Automated exposure control for dose reduction was used. DATE OF EXAM: 07/13/2023 5:44 PM COMPARISON: CT abdomen pelvis most recent from dating back to 06/17/2017. CLINICAL INDICATION:Male, 62 years old with history of abd pain, N,V; Abd pain, N/V. TECHNIQUE: Axial CT of the abdomen . Sagittal and coronal reformats were created on a separate works tation. Contrast used:100 ml mL of Isovue 300 with IV Contrast, (none if empty) Oral contrast used: without Oral Contrast (none if empty) FINDINGS: LOWER CHEST: Fibrotic changes to the lung bases with large bulla in the left lung base. There is susp ected early honeycombing. ABDOMEN LIVER: Arterial phase enhancing lesion in the left hepatic lobe measuring 9 mm. GALLBLADDER AND BILE DUCTS: Gallbladder surgically absent. PANCREAS: Unremarkable. SPLEEN: Unremarkable. ADRENAL GLANDS: Unremarkable. KIDNEYS AND URETERS: No evidence of hydronephrosis or renal calculus. The ureters are unremarkable. STOMACH AND BOWEL: No evidence of bowel obstruction. Large amount stool throughout the visualized col on. PERITONEUM/RETROPERITONEUM: No evidence of pneumoperitoneum or free fluid. VASCULATURE: No evidence of aortic aneurysm. IVC filter in place. MUSCULOSKELETAL: No acute osseous abnormalities LYMPH NODES: No gross evidence for lymphadenopathy. Prominent nonenlarged lymph nodes are seen in the retroperitoneum. SOFT TISSUE/ABDOMINAL WALL: Electronic device on the left posterior lateral aspect of the subcutaneou s tissues. Fat-containing umbilical hernia. IMPRESSION: 1. Large amount stool throughout the visualized colon correlate for constipation/fecal stasis, No ev idence for acute abdominal process. 2. Indeterminate left hepatic lobe arterial phase enhancing lesion which is indeterminate but favore d to be benign given similar appearance dating back to 06/17/2017. 3. Fibrotic changes to the lung bases with large bulla in the left lung base findings have progresse d from 2015.
[2023-07-13 20:12] LABS: Glucose,Whole Blood 365 mg/dL (70-110)
[2023-07-13] MEDS: ATORVASTATIN 80 MG TAB PO SCH (20:21)
[2023-07-14] MEDS: HYDROcodone/APAP 5-325MG 1 EACH TAB PO PRN ×3 (01:22→16:26)
[2023-07-14 01:47] LABS: Glucose,Whole Blood 531 mg/dL (70-110)
[2023-07-14] MEDS ORDERED: INSULIN ASPART (NovoLOG) 100 UNIT/ML VIAL SQ ONE ×2 (02:27→12:39)
[2023-07-14] MEDS: LEVOTHYROXINE 75 MCG TAB PO SCH (02:38)
[2023-07-14] MEDS ORDERED: INSULIN DETEMIR (LEVEMIR) 100 UNIT/ML SYR SQ SCH (07:00)
[2023-07-14 07:10] LABS: Glucose,Whole Blood 394 mg/dL (70-110)
[2023-07-14] MEDS: PANTOPRAZOLE 40 MG/10 ML VIAL IVP SCH ×2 (08:59→20:13)
[2023-07-14] MEDS: INSULIN ASPART (NovoLOG) 100 UNIT/ML VIAL SQ SCH ×4 (09:00→20:13)
[2023-07-14] MEDS: MULTIVITAMINS, THERA 1 EACH TAB PO SCH (09:00)
[2023-07-14] MEDS: ASPIRIN 81 MG PO SCH (09:00)
[2023-07-14] MEDS: METOPROLOL SUCCINATE (ER) 50 MG TAB.ER.24H PO SCH ×2 (09:00→20:16)
[2023-07-14] MEDS: HEPARIN SODIUM,PORCINE 5,000 UNIT/ML 1 ML VIAL SQ SCH ×2 (09:00→20:14)
[2023-07-14] MEDS: CHOLECALCIFEROL 25 MCG (1000 IU) TABLET PO SCH (09:00)
[2023-07-14] MEDS: AMOXIC-POT CLAV 875-125MG 1 EACH TAB PO SCH ×2 (09:00→20:12)
[2023-07-14] MEDS: CLOPIDOGREL 75 MG TAB PO SCH (09:00)
[2023-07-14] MEDS: MEMANTINE 10 MG TAB PO SCH (09:02)
[2023-07-14] MEDS: DOXYCYCLINE 100 MG CAP PO SCH ×2 (09:02→20:12)
[2023-07-14] MEDS: MEGESTROL 40 MG TAB PO SCH (09:03)
[2023-07-14] MEDS: ONDANSETRON 4 MG/2 ML VIAL IVP PRN ×2 (09:06→16:26)
[2023-07-14] MEDS: FOLIC ACID 1 MG TAB PO SCH (09:06)
[2023-07-14 09:17] LABS: Magnesium 1.7 mg/dL (1.5-2.4)
[2023-07-14 09:35] LABS: BUN/Creat Ratio 13.17 Ratio (12.00-20.00); Blood Urea Nitrogen 15.8 mg/dL (9.0-27.0); Calcium 8.4 mg/dL (8.7-10.3); Carbon Dioxide 26.4 mmol/L (21.6-31.8); Chloride 96 mmol/L (96-109); Glucose 378 mg/dL (70-110); Potassium 4.8 mmol/L (3.5-5.5); Sodium 133 mmol/L (135-145)
[2023-07-14 09:45] LABS: Basophils # (A) 0.08 X 10*3/uL (0.00-0.10); Basophils % (A) 0.9 %; Eosinophils # (A) 0.02 X 10*3/uL (0.04-0.35); Eosinophils % (A) 0.2 %; HCT 23.5 % (39.6-50.0); HGB 7.9 d/dL (13.0-17.0); Lymphocytes # (A) 1.39 X 10*3/uL (0.90-5.00); MCH 30.9 pg (27.0-32.0); MCHC 33.6 d/dL (32.0-37.0); MCV 91.8 FL (80.0-97.0); Mean Platelet Volume 9.6 FL (9.5-12.2); Monocytes # (A) 1.19 X 10*3/uL (0.20-1.00); Monocytes % (A) 13.7 %; NRBC Per 100 WBC 0 X 10*3/uL (0.00-0.01); Neutrophils # (A) 5.98 X 10*3/uL (1.80-7.70); Neutrophils % (A) 68.6 %; Platelet Count 294 X 10*3/uL (140-440); RBC 2.56 X 10*6/uL (4.40-5.60); RDW 18.6 % (11.5-14.5); WBC 8.71 X 10*3/uL (4.50-10.00)
[2023-07-14] MEDS ORDERED: Magnesium Replacement Protocol 1 EACH MISC MISCELLANE PRN (10:09)
[2023-07-14] MEDS ORDERED: MAGNESIUM SULFATE-D5W PMX 1 GM in DEXTROSE/WATER 1 100ML.BAG IVPB ONE (10:09)
[2023-07-14] MEDS ORDERED: MAGNESIUM HYDROXIDE 2,400 MG/30 ML CUP PO PRN (11:44)
[2023-07-14 11:50] LABS: Glucose,Whole Blood 419 mg/dL (70-110)
--- NOTE | 2023-07-14 12:50 | P.PN ---
Subjective Progress Note Date: 07/14/23 Principal diagnosis: abd abscess At today's visit patient is resting comfortably in bed. Patient reports fatigue. He also reports intermittent nausea and 1 episode of vomiting last night. Patient afebile. Continues on oral abx Objective - Vital Signs Vital signs: Vital Signs Temp 97.9 F 07/14/23 11:50 Pulse 82 07/14/23 11:50 Resp 18 07/14/23 11:50 BP 116/77 07/14/23 11:50 Pulse Ox 99 07/14/23 11:50 FiO2 Intake & Output 07/13/23 07/14/23 07/14/23 18:59 06:59 18:59 Intake Total 240 Output Total 200 Balance -200 240 Weight 65.771 kg Intake: Oral 240 Output: Urine 200 Other: Voiding Method Toilet Toilet # Voids 2 - Constitutional General appearance: Present: no acute distress - EENT Eyes: Present: anicteric sclerae, EOMI ENT: Present: hearing grossly normal - Respiratory Details: breathing even and unlabored - Cardiovascular Details: skin warm and dry - Gastrointestinal General gastrointestinal: Present: soft - Integumentary Integumentary: Absent: cyanotic, jaundiced - Musculoskeletal Musculoskeletal: Present: generalized weakness - Psychiatric Psychiatric: Present: A&O x's 3, appropriate affect, intact judgment & insight - Labs CBC & Chem 7: 07/14/23 06:00 07/14/23 06:00 Labs: Abnormal Lab Results - Last 24 Hours (Table) 07/13/23 07/13/23 07/14/23 Range/Units 17:06 20:08 01:45 RBC (4.40-5.60) X 10*6/uL Hgb (13.0-17.0) d/dL Hct (39.6-50.0) % RDW (11.5-14.5) % Monocytes # (0.20-1.00) X 10*3/uL Eosinophils # (0.04-0.35) X 10*3/uL Sodium (135-145) mmol/L Glucose (70-110) mg/dL POC Glucose (mg/dL) 376 H 365 H 531 H (70-110) mg/dL Calcium (8.7-10.3) mg/dL 07/14/23 07/14/23 07/14/23 Range/Units 06:00 06:00 07:09 RBC 2.56 L (4.40-5.60) X 10*6/uL Hgb 7.9 L (13.0-17.0) d/dL Hct 23.5 L (39.6-50.0) % RDW 18.6 H (11.5-14.5) % Monocytes # 1.19 H (0.20-1.00) X 10*3/uL Eosinophils # 0.02 L (0.04-0.35) X 10*3/uL Sodium 133 L (135-145) mmol/L Glucose 378 H (70-110) mg/dL POC Glucose (mg/dL) 394 H (70-110) mg/dL Calcium 8.4 L (8.7-10.3) mg/dL 07/14/23 Range/Units 11:49 RBC (4.40-5.60) X 10*6/uL Hgb (13.0-17.0) d/dL Hct (39.6-50.0) % RDW (11.5-14.5) % Monocytes # (0.20-1.00) X 10*3/uL Eosinophils # (0.04-0.35) X 10*3/uL Sodium (135-145) mmol/L Glucose (70-110) mg/dL POC Glucose (mg/dL) 419 H (70-110) mg/dL Calcium (8.7-10.3) mg/dL - Imaging and Cardiology CT scan - abdomen: report reviewed Assessment and Plan (1) Abscess of abdominal wall Current Visit: Yes Status: Acute Priority: High Code(s): L02.211 - CUTANEOUS ABSCESS OF ABDOMINAL WALL SNOMED Code(s): 19336763 (2) Adenocarcinoma of lung, stage 4 Current Visit: Yes Status: Chronic Priority: High Code(s): C34.90 - MALIGNANT NEOPLASM OF UNSP PART OF UNSP BRONCHUS OR LUNG SNOMED Code(s): 675400233 Plan: Nausea and vomiting, constipation -Intermittent, persisting. Reports improvement with antiemetics. Will increase frequency of Zofran every 4 hours as needed. -CT of the abdomen revealed large amount of stool throughout the visualized colon. No evidence for acute abdominal process. Indeterminate left hepatic lobe enhancing lesion which is indeterminate but favored to be benign given the similar appearance dating to 06/2017. Fibrotic changes to the lung bases with large bulla in the left lung base, findings are progressed since 2014 -Last BM 2 days ago, reports he is not producing large BMs. Symptoms likely attributed to narcotics, anti-emetics and decreased oral intake. Bowel regimen added. Will continue to monitor. Abdominal wall abscess -Secondary to subcutaneous diabetic monitor. Infectious disease following, antibiotics continued -Afebrile Metastatic adenocarcinoma of the lung -Completed cycle 4 of carboplatin/Alimta/Keytruda 06/15/2023 -It was recommended pt receive at least 2-3 additional cycles of chemo given his first 2 cycles did not contain carboplatin due to national chemotherapy shortage -This will be followed by repeat imaging to assess treatment response -Next cycle was scheduled for 07/07/2023, will be rescheduled after patient has completed antibiotics and been reassessed to ensure that he has recovered adequately to resume therapy. Appointment date and time in the chart.
[2023-07-14] MEDS: SENNOSIDES-DOCUSATE SODIUM 1 EACH TAB PO SCH ×2 (13:13→20:11)
[2023-07-14 17:05] LABS: Glucose,Whole Blood 285 mg/dL (70-110)
--- NOTE | 2023-07-14 17:27 | P.PN ---
Subjective Progress Note Date: 07/14/23 Principal diagnosis: Abdominal wall cellulitis/abscess Patient is a 62-year-old male with a past medical history significant for diabetes mellitus patient did have a insulin pump for management of his underlying diabetes patient did develop swelling redness at the insulin pump needle insertion site on right lower abdominal area with concern for small abscess at that location. On today's evaluation that is 07/14/2023, the patient denies any fever or any chills, the patient is breathing comfortably , the patient denies chest pain or cough, the patient still complain of some nausea but no further vomiting, the patient right lower abdominal pain and induration has decreased intensity and there is no drainage Patient did have a white count of 8.71, creatinine is 1.2, Objective - Vital Signs Vital signs: Vital Signs Temp 97.9 F 07/14/23 11:50 Pulse 82 07/14/23 11:50 Resp 18 07/14/23 11:50 BP 116/77 07/14/23 11:50 Pulse Ox 99 07/14/23 11:50 FiO2 Intake & Output 07/13/23 07/14/23 07/14/23 18:59 06:59 18:59 Intake Total 240 Output Total 200 Balance -200 240 Weight 65.771 kg Intake: Oral 240 Output: Urine 200 Other: Voiding Method Toilet Toilet Toilet # Voids 2 - Exam GENERAL DESCRIPTION: A middle-age male lying in bed in no distress RESPIRATORY SYSTEM: Unlabored breathing , decreased breath sounds at bases HEART: S1 S2 regular rate and rhythm , ABDOMEN: Soft , right lower abdominal wall with area of induration has slightly decreased and no drainage was noticed EXTREMITIES: No edema feet - Labs CBC & Chem 7: 07/14/23 06:00 07/14/23 06:00 Labs: Abnormal Lab Results - Last 24 Hours (Table) 07/13/23 07/14/23 07/14/23 Range/Units 20:08 01:45 06:00 RBC 2.56 L (4.40-5.60) X 10*6/uL Hgb 7.9 L (13.0-17.0) d/dL Hct 23.5 L (39.6-50.0) % RDW 18.6 H (11.5-14.5) % Monocytes # 1.19 H (0.20-1.00) X 10*3/uL Eosinophils # 0.02 L (0.04-0.35) X 10*3/uL Sodium (135-145) mmol/L Glucose (70-110) mg/dL POC Glucose (mg/dL) 365 H 531 H (70-110) mg/dL Calcium (8.7-10.3) mg/dL 07/14/23 07/14/23 07/14/23 Range/Units 06:00 07:09 11:49 RBC (4.40-5.60) X 10*6/uL Hgb (13.0-17.0) d/dL Hct (39.6-50.0) % RDW (11.5-14.5) % Monocytes # (0.20-1.00) X 10*3/uL Eosinophils # (0.04-0.35) X 10*3/uL Sodium 133 L (135-145) mmol/L Glucose 378 H (70-110) mg/dL POC Glucose (mg/dL) 394 H 419 H (70-110) mg/dL Calcium 8.4 L (8.7-10.3) mg/dL 07/14/23 Range/Units 17:03 RBC (4.40-5.60) X 10*6/uL Hgb (13.0-17.0) d/dL Hct (39.6-50.0) % RDW (11.5-14.5) % Monocytes # (0.20-1.00) X 10*3/uL Eosinophils # (0.04-0.35) X 10*3/uL Sodium (135-145) mmol/L Glucose (70-110) mg/dL POC Glucose (mg/dL) 285 H (70-110) mg/dL Calcium (8.7-10.3) mg/dL Assessment and Plan (1) Abdominal wall cellulitis Current Visit: Yes Status: Acute Code(s): L03.311 - CELLULITIS OF ABDOMINAL WALL SNOMED Code(s): 90592272 (2) Abscess of abdominal wall Current Visit: Yes Status: Acute Priority: High Code(s): L02.211 - CUTANEOUS ABSCESS OF ABDOMINAL WALL SNOMED Code(s): 27545848 Plan: 1patient with a right lower abdominal wall area of induration and swelling and redness concerning for small abscess at the insulin pump needle insertion site and will need to cover for the gram-positive skin kinjal to the likely pathogen. 2 surgical team has signed off not recommending any surgical drainage 3Patient has shown clinical improvement as for his abdominal wall cellulitis, patient will continue the patient on oral Augmentin and doxycycline and monitor clinical course closely Dictation was produced using [employer] dictation software. please excuse any grammatical, word or spelling errors. Time with Patient: Less than 30
[2023-07-14] MEDS: METOCLOPRAMIDE 5 MG/ML 2 ML VIAL IVP SCH ×2 (18:16→23:39)
[2023-07-14 20:05] LABS: Glucose,Whole Blood 291 mg/dL (70-110)
[2023-07-14] MEDS: ATORVASTATIN 80 MG TAB PO SCH (20:12)
[2023-07-14] MEDS: INSULIN DETEMIR (LEVEMIR) 100 UNIT/ML SYR SQ SCH (20:13)
--- NOTE | 2023-07-14 21:00 | P.PN ---
Subjective Progress Note Date: 07/14/23 07/10/2023 Patient seen and evaluated this morning being followed by infectious disease maintained on antibiotics and we'll transition to oral Augmentin and doxycycline. General surgery has cleared the patient for discharge. Blood sugars are currently controlled and working on discharge planning. Upon discharge patient reportedly developed nausea with vomiting and appears generally fatigued. Will obtain labs along with chest x-ray and reinitiate IV access and give some antinausea medications. Patient is afebrile with no reports of chest pain or shortness of breath. 07/13/2023 Patient is seen in follow-up today mostly lying in the bed reports he has been getting up and walking to the bathroom. Discussed with him the option of possible rehab for continued weakness and patient reports he can handle it at home. Patient is refusing rehab at this time. Patient encouraged to increase ambulation and walk more frequently. Patient continues with nausea with no vomiting today and continues with diffuse abdominal pain and CT abdomen is ordered per oncology which is pending at this time. Patient also maintained on antibiotics with infectious disease following and will continue on oral on discharge. Patient denies any significant drainage or tenderness noted on the right abscess site. Patient's blood sugars have been low and will discontinue the nighttime dose of long-acting and continue with daily along with sliding scale. Patient does not have his insulin pump supplies here with him. Patient is afebrile with no reported chest pain or shortness of breath. Patient chronically wears oxygen outpatient and has supplies at home. Will await CT and discuss with further consultations about discharge planning. 07/14/2023 Patient is seen in follow-up this morning continues to be laying in the bed throughout most of the day. Patient reports continued abdominal discomfort and underwent CT abdomen which showed moderate stool burden and has been placed on bowel regimen. Patient has had continued nausea but no episodes of vomiting since last night. Encouraged oral intake in small frequent meals. Patient has been started on Megace and does not really notice a difference or increased appetite at this point. Patient has been encouraged to increase activity as tolerated and walk more frequently and get up out of the bed. Patient is afebrile with no reports of chest pain or worsening shortness of breath. Review of systems: Constitutional: reports of fatigue, no fever, or chills Cardiovascular: No reports of chest pain or palpitations Respiratory: No reports of worsening shortness of breath or cough GI: reports of nausea, with no vomiting, no diarrhea, reports not much of an appetite : No reports of dysuria or retention Neurovascular: reports of generalized weakness All medications have been reviewed PHYSICAL EXAMINATION: GENERAL: The patient is alert and oriented x4, Well developed, ill-appearing, pale HEENT: Pupils are round and equally reacting to light. EOMI. no scleral icterus. No conjunctival pallor. Normocephalic, atraumatic. No pharyngeal erythema. No thyromegaly. CARDIOVASCULAR: S1 and S2 muffled PULMONARY: diminished breath sounds bilaterally with no wheezing or rhonchi noted. ABDOMEN: soft. Nontender on exam. non-distended, normoactive bowel sounds. No palpable organomegaly. MUSCULOSKELETAL: No joint swelling or deformity. EXTREMITIES: No cyanosis, clubbing, or pedal edema. NEUROLOGICAL: Gross neurological examination did not reveal any focal deficits. Diffuse weakness SKIN: No rashes. Pale Assessment: Abdominal wall cellulitis and abscess insulin pump injection site, improving Nausea with vomiting, likely acute gastritis Moderate stool burden as noted on CT Hypothyroidism history Weakness and fatigue Diabetes mellitus, type 1 insulin-dependent, uncontrolled with hyperglycemia History of coronary artery disease History of lung carcinoma History of CHF, unknown EF moderate protein calorie malnutrition with a BMI of 21.4 GI prophylaxis DVT prophylaxis Full code Plan: Patient being followed by multiple consultations maintained on antibiotics in the form of doxycycline and Augmentin with infectious disease following Oncology following and CT abdomen showed no acute process other than moderate stool burden and is being placed on bowel regimen. Patient to follow-up outpatient with oncology as his next dose of chemotherapy was scheduled for 07/07/2023 although has been rescheduled and is to follow-up his hospitalization. Encouraged increased activity as tolerated and getting up out of the bed more often Encouraged oral intake and will continue on Megace Blood sugars extremely uncontrolled patient having episodes of hyperglycemia as well as hypoglycemia. Patient has been refusing long-acting insulin at times although blood sugars were in the 300s to 500s overnight. Patient will continue on low-dose long-acting twice daily along with sliding scale. Patient does not have his pump supplies Due to multiple complex medical issues, prognosis is guarded Possible discharge in the next 24 hours The impression and plan of care has been dictated by Juliana Currie, nurse deja ramires as directed. Dr. Jacobo VALDES I have performed a history and examination and MDM of this patient, discussed the same with the dictator, and agree with the dictator's assessment and plan as written ,documented as a scribe. Based on total visit time, I have performed more than 50% of the visit. Any additional findings or plans will be noted. Objective - Vital Signs Vital signs: Vital Signs Temp 98.4 F 07/14/23 07:04 Pulse 78 07/14/23 07:04 Resp 18 07/14/23 07:04 BP 132/77 07/14/23 07:04 Pulse Ox 98 07/14/23 07:04 FiO2 Intake & Output 07/13/23 07/14/23 07/14/23 18:59 06:59 18:59 Intake Total 240 Output Total 200 Balance -200 240 Weight 65.771 kg Intake: Oral 240 Output: Urine 200 Other: Voiding Method Toilet Toilet - Labs CBC & Chem 7: 07/14/23 06:00 07/14/23 06:00 Labs: Abnormal Lab Results - Last 24 Hours (Table) 07/13/23 07/13/23 07/13/23 Range/Units 11:54 17:06 20:08 RBC (4.40-5.60) X 10*6/uL Hgb (13.0-17.0) d/dL Hct (39.6-50.0) % RDW (11.5-14.5) % Monocytes # (0.20-1.00) X 10*3/uL Eosinophils # (0.04-0.35) X 10*3/uL Sodium (135-145) mmol/L Glucose (70-110) mg/dL POC Glucose (mg/dL) 241 H 376 H 365 H (70-110) mg/dL Calcium (8.7-10.3) mg/dL 07/14/23 07/14/23 07/14/23 Range/Units 01:45 06:00 06:00 RBC 2.56 L (4.40-5.60) X 10*6/uL Hgb 7.9 L (13.0-17.0) d/dL Hct 23.5 L (39.6-50.0) % RDW 18.6 H (11.5-14.5) % Monocytes # 1.19 H (0.20-1.00) X 10*3/uL Eosinophils # 0.02 L (0.04-0.35) X 10*3/uL Sodium 133 L (135-145) mmol/L Glucose 378 H (70-110) mg/dL POC Glucose (mg/dL) 531 H (70-110) mg/dL Calcium 8.4 L (8.7-10.3) mg/dL 07/14/23 Range/Units 07:09 RBC (4.40-5.60) X 10*6/uL Hgb (13.0-17.0) d/dL Hct (39.6-50.0) % RDW (11.5-14.5) % Monocytes # (0.20-1.00) X 10*3/uL Eosinophils # (0.04-0.35) X 10*3/uL Sodium (135-145) mmol/L Glucose (70-110) mg/dL POC Glucose (mg/dL) 394 H (70-110) mg/dL Calcium (8.7-10.3) mg/dL
[2023-07-15 02:09] LABS: Glucose,Whole Blood 194 mg/dL (70-110)
[2023-07-15] MEDS: INSULIN ASPART (NovoLOG) 100 UNIT/ML VIAL SQ SCH ×5 (02:10→21:08)
[2023-07-15] MEDS: METOCLOPRAMIDE 5 MG/ML 2 ML VIAL IVP SCH ×4 (05:35→23:48)
[2023-07-15] MEDS: LEVOTHYROXINE 75 MCG TAB PO SCH (05:35)
[2023-07-15 07:11] LABS: Glucose,Whole Blood 109 mg/dL (70-110)
[2023-07-15] MEDS: PANTOPRAZOLE 40 MG/10 ML VIAL IVP SCH ×2 (08:47→20:07)
[2023-07-15] MEDS: METOPROLOL SUCCINATE (ER) 50 MG TAB.ER.24H PO SCH ×2 (08:48→20:06)
[2023-07-15] MEDS: AMOXIC-POT CLAV 875-125MG 1 EACH TAB PO SCH ×2 (08:48→20:06)
[2023-07-15] MEDS: ASPIRIN 81 MG PO SCH (08:48)
[2023-07-15] MEDS: CLOPIDOGREL 75 MG TAB PO SCH (08:48)
[2023-07-15] MEDS: FOLIC ACID 1 MG TAB PO SCH (08:48)
[2023-07-15] MEDS: SENNOSIDES-DOCUSATE SODIUM 1 EACH TAB PO SCH ×2 (08:48→20:06)
[2023-07-15] MEDS: HEPARIN SODIUM,PORCINE 5,000 UNIT/ML 1 ML VIAL SQ SCH ×2 (08:48→20:07)
[2023-07-15] MEDS: CHOLECALCIFEROL 25 MCG (1000 IU) TABLET PO SCH (08:48)
[2023-07-15] MEDS: MULTIVITAMINS, THERA 1 EACH TAB PO SCH (08:48)
[2023-07-15] MEDS: INSULIN DETEMIR (LEVEMIR) 100 UNIT/ML SYR SQ SCH ×2 (08:49→21:08)
[2023-07-15] MEDS: DOXYCYCLINE 100 MG CAP PO SCH ×2 (08:49→20:06)
[2023-07-15] MEDS: MEGESTROL 40 MG TAB PO SCH (08:50)
[2023-07-15] MEDS: MEMANTINE 10 MG TAB PO SCH (08:50)
[2023-07-15] MEDS: ONDANSETRON 4 MG/2 ML VIAL IVP PRN ×2 (09:00→16:29)
[2023-07-15] MEDS ORDERED: bisacodyL 10 MG SUPP RECTAL STA (10:38)
[2023-07-15 11:36] LABS: Glucose,Whole Blood 406 mg/dL (70-110)
--- NOTE | 2023-07-15 12:07 | P.PN ---
Subjective Progress Note Date: 07/15/23 Principal diagnosis: abd abscess At today's visit patient is resting comfortably in bed. Patient reports fatigue. He also reports intermittent nausea and 1 episode of vomiting last night. He continues on Reglan and Zofran. Patient was started on bowel regimen yesterday but still has not had a BM in 3 days. Spoke with internal medicine, will order suppository. Patient encouraged to increase oral intake and activity as tolerated Objective - Vital Signs Vital signs: Vital Signs Temp 98.5 F 07/15/23 11:36 Pulse 74 07/15/23 11:36 Resp 18 07/15/23 11:36 BP 98/56 07/15/23 11:36 Pulse Ox 99 07/15/23 11:36 FiO2 Intake & Output 07/14/23 07/15/23 07/15/23 18:59 06:59 18:59 Intake Total 240 Balance 240 Intake: Oral 240 Other: Voiding Method Toilet Toilet Toilet # Voids 2 1 1 # Bowel Movements 1 - Constitutional General appearance: Present: average body habitus, no acute distress - EENT Eyes: Present: anicteric sclerae, EOMI ENT: Present: hearing grossly normal - Respiratory Details: breathing is even and unlabored - Cardiovascular Details: skin warm and dry - Integumentary Integumentary: Absent: cyanotic, jaundiced - Neurologic Neurologic: Present: CNII-XII intact - Musculoskeletal Musculoskeletal: Present: generalized weakness - Psychiatric Psychiatric: Present: A&O x's 3, appropriate affect, intact judgment & insight - Labs CBC & Chem 7: 07/14/23 06:00 07/14/23 06:00 Labs: Abnormal Lab Results - Last 24 Hours (Table) 07/14/23 07/14/23 07/15/23 Range/Units 17:03 20:03 02:06 POC Glucose (mg/dL) 285 H 291 H 194 H (70-110) mg/dL 07/15/23 Range/Units 11:34 POC Glucose (mg/dL) 406 H (70-110) mg/dL Assessment and Plan (1) Abscess of abdominal wall Current Visit: Yes Status: Acute Priority: High Code(s): L02.211 - CUTANEOUS ABSCESS OF ABDOMINAL WALL SNOMED Code(s): 95755998 (2) Adenocarcinoma of lung, stage 4 Current Visit: Yes Status: Chronic Priority: High Code(s): C34.90 - M ALIGNANT NEOPLASM OF UNSP PART OF UNSP BRONCHUS OR LUNG SNOMED Code(s): 4 38230956 Plan: Nausea and vomiting, constipation -Intermittent, persisting. Reports some improvement with antiemetics. Will increase frequency of Zofran every 4 hours as needed. Continues on reglan -CT of the abdomen revealed large amount of stool throughout the visualized colon. No evidence for acute abdominal process. Indeterminate left hepatic lobe enhancing lesion which is indeterminate but favored to be benign given the similar appearance dating to 06/2017. Fibrotic changes to the lung bases with large bulla in the left lung base, findings are progressed since 2014 -Last BM 3 days ago. Symptoms likely attributed to narcotics, anti-emetics and decreased oral intake. Bowel regimen added. Suppository will be added today, may need enema if still doesn't have BM on current regimen. Patient encouraged to increase oral intake and activity as tolerated. Will continue to monitor. Abdominal wall abscess -Secondary to subcutaneous diabetic monitor. Infectious disease following, antibiotics continued -Remains afebrile Metastatic adenocarcinoma of the lung -Completed cycle 4 of carboplatin/Alimta/Keytruda 06/15/2023 -It was recommended pt receive at least 2-3 additional cycles of chemo given his first 2 cycles did not contain carboplatin due to national chemotherapy shortage -This will be followed by repeat imaging to assess treatment response -Next cycle was scheduled for 07/07/2023, will be rescheduled after patient has completed antibiotics and been reassessed to ensure that he has recovered adequately to resume therapy. Appointment date and time in the chart.
[2023-07-15] MEDS: HYDROcodone/APAP 5-325MG 1 EACH TAB PO PRN (16:29)
--- NOTE | 2023-07-15 16:54 | P.PN ---
Subjective Progress Note Date: 07/15/23 07/10/2023 Patient seen and evaluated this morning being followed by infectious disease maintained on antibiotics and we'll transition to oral Augmentin and doxycycline. General surgery has cleared the patient for discharge. Blood sugars are currently controlled and working on discharge planning. Upon discharge patient reportedly developed nausea with vomiting and appears generally fatigued. Will obtain labs along with chest x-ray and reinitiate IV access and give some antinausea medications. Patient is afebrile with no reports of chest pain or shortness of breath. 07/13/2023 Patient is seen in follow-up today mostly lying in the bed reports he has been getting up and walking to the bathroom. Discussed with him the option of possible rehab for continued weakness and patient reports he can handle it at home. Patient is refusing rehab at this time. Patient encouraged to increase ambulation and walk more frequently. Patient continues with nausea with no vomiting today and continues with diffuse abdominal pain and CT abdomen is ordered per oncology which is pending at this time. Patient also maintained on antibiotics with infectious disease following and will continue on oral on discharge. Patient denies any significant drainage or tenderness noted on the right abscess site. Patient's blood sugars have been low and will discontinue the nighttime dose of long-acting and continue with daily along with sliding scale. Patient does not have his insulin pump supplies here with him. Patient is afebrile with no reported chest pain or shortness of breath. Patient chronically wears oxygen outpatient and has supplies at home. Will await CT and discuss with further consultations about discharge planning. 07/14/2023 Patient is seen in follow-up this morning continues to be laying in the bed throughout most of the day. Patient reports continued abdominal discomfort and underwent CT abdomen which showed moderate stool burden and has been placed on bowel regimen. Patient has had continued nausea but no episodes of vomiting since last night. Encouraged oral intake in small frequent meals. Patient has been started on Megace and does not really notice a difference or increased appetite at this point. Patient has been encouraged to increase activity as tolerated and walk more frequently and get up out of the bed. Patient is afebrile with no reports of chest pain or worsening shortness of breath. 07/15/2023 Patient is seen in follow-up today reports had an episode of vomiting last night and nausea this morning although ate almost all breakfast. Patient is maintained on as needed Zofran along with scheduled Reglan and will continue. Patient reports has not had a bowel movement in 3 days although is passing gas. Patient was started on Senokot scheduled as opposed to when necessary and will add Dulcolax suppository and may suggest possible enema if no results. Patient has been encouraged to increase activity as tolerated as patient is mostly lying in the bed all day. Nursing staff can confirm this as well. Patient is refusing rehab and reports can manage at home. Patient does not have any of his insulin pump diabetic supplies and will continue on current regimen. Patient is maintained on long-acting 10 units twice daily along with sliding scale and will continue. Blood sugars have been extremely uncontrolled. Patient is afebrile with no reports of chest pain or shortness of breath. Patient chronically wears oxygen in the outpatient setting. Patient maintained on oral antibiotics per infectious disease recommendations and will continue short course on discharge. Review of systems: Constitutional: reports of fatigue, no fever, or chills Cardiovascular: No reports of chest pain or palpitations Respiratory: No reports of worsening shortness of breath or cough GI: reports of nausea, with one episode of vomiting last night, no diarrhea, reports not much of an appetite although did eat better today. Patient has not had a bowel movement in 3 days but is passing gas : No reports of dysuria or retention Neurovascular: reports of generalized weakness All medications have been reviewed PHYSICAL EXAMINATION: GENERAL: The patient is alert and oriented x4, Well developed, ill-appearing, pale, flat affect HEENT: Pupils are round and equally reacting to light. EOMI. no scleral icterus. No conjunctival pallor. Normocephalic, atraumatic. No pharyngeal erythema. No thyromegaly. CARDIOVASCULAR: S1 and S2 muffled PULMONARY: diminished breath sounds bilaterally with no wheezing or rhonchi noted. ABDOMEN: soft. Nontender on exam. non-distended, normoactive bowel sounds. No palpable organomegaly. MUSCULOSKELETAL: No joint swelling or deformity. EXTREMITIES: No cyanosis, clubbing, or pedal edema. NEUROLOGICAL: Gross neurological examination did not reveal any focal deficits. Diffuse weakness SKIN: No rashes. Pale Assessment: Abdominal wall cellulitis and abscess insulin pump injection site, improving Nausea with vomiting, likely acute gastritis Moderate stool burden as noted on CT, improving Hypothyroidism history Weakness and fatigue Diabetes mellitus, type 1 insulin-dependent, uncontrolled with hyperglycemia History of coronary artery disease History of lung carcinoma History of CHF, unknown EF moderate protein calorie malnutrition with a BMI of 21.4 GI prophylaxis DVT prophylaxis Full code Plan: Patient being followed by multiple consultations maintained on antibiotics in the form of doxycycline and Augmentin with infectious disease following. Patient will complete a short course on discharge of oral antibiotics Oncology following and follow-up appointments will be made for patient once recovered and off antibiotics to continue with chemotherapy treatments Encouraged increased activity as tolerated and getting up out of the bed more often. Per nursing staff patient has been mostly lying in the bed this entire admission Encouraged oral intake and will continue on Megace Blood sugars extremely uncontrolled patient having episodes of hyperglycemia as well as hypoglycemia. Patient will continue on low-dose long-acting twice daily along with sliding scale. Patient does not have his insulin pump supplies to resume Patient is maintained on Senokot scheduled as opposed to when necessary as patient had not had a bowel movement in 2-3 days with continuing nausea and vomiting. Patient reports passing gas will add Dulcolax suppository as CT most recently did show stool burden. Due to multiple complex medical issues, prognosis is guarded Possible discharge in the next 24 hours The impression and plan of care has been dictated by Juliana Currie, nurse practitioner as directed. Dr. Jacobo VALDES I have performed a history and examination and MDM of this patient, discussed the same with the dictator, and agree with the dictator's assessment and plan as written ,documented as a scribe. Based on total visit time, I have performed more than 50% of the visit. Any additional findings or plans will be noted. Objective - Vital Signs Vital signs: Vital Signs Temp 98.1 F 07/15/23 07:05 Pulse 94 07/15/23 07:05 Resp 18 07/15/23 07:05 BP 151/65 07/15/23 07:05 Pulse Ox 99 07/15/23 07:05 FiO2 Intake & Output 07/14/23 07/15/23 07/15/23 18:59 06:59 18:59 Intake Total 240 Balance 240 Intake: Oral 240 Other: Voiding Method Toilet Toilet # Voids 2 1 - Labs CBC & Chem 7: 07/14/23 06:00 07/14/23 06:00 Labs: Abnormal Lab Results - Last 24 Hours (Table) 09/10/2407/14/23 07/14/23 Range/Units 11:49 17:03 20:03 POC Glucose (mg/dL) 419 H 285 H 291 H (70-110) mg/dL 07/15/23 Range/Units 02:06 POC Glucose (mg/dL) 194 H (70-110) mg/dL
[2023-07-15 16:58] LABS: Glucose,Whole Blood 406 mg/dL (70-110)
[2023-07-15] MEDS ORDERED: INSULIN ASPART (NovoLOG) 100 UNIT/ML VIAL SQ ONE (18:00)
[2023-07-15] MEDS: ATORVASTATIN 80 MG TAB PO SCH (20:06)
[2023-07-15 20:26] LABS: Glucose,Whole Blood 467 mg/dL (70-110)
[2023-07-16] MEDS: ONDANSETRON 4 MG/2 ML VIAL IVP PRN ×3 (00:15→18:13)
[2023-07-16] MEDS: HYDROcodone/APAP 5-325MG 1 EACH TAB PO PRN ×2 (00:15→18:13)
[2023-07-16 02:07] LABS: Glucose,Whole Blood 208 mg/dL (70-110)
[2023-07-16] MEDS: INSULIN ASPART (NovoLOG) 100 UNIT/ML VIAL SQ SCH ×5 (02:16→21:37)
[2023-07-16] MEDS: METOCLOPRAMIDE 5 MG/ML 2 ML VIAL IVP SCH ×3 (05:24→18:07)
[2023-07-16] MEDS: LEVOTHYROXINE 75 MCG TAB PO SCH (05:24)
[2023-07-16] MEDS ORDERED: INSULIN DETEMIR (LEVEMIR) 100 UNIT/ML SYR SQ SCH (07:00)
[2023-07-16 07:37] LABS: Glucose,Whole Blood 44 mg/dL (70-110)
[2023-07-16 08:03] LABS: Glucose,Whole Blood 42 mg/dL (70-110)
--- NOTE | 2023-07-16 08:16 | P.PN ---
Subjective Progress Note Date: 07/15/23 Principal diagnosis: Abdominal wall cellulitis/abscess Patient is a 62-year-old male with a past medical history significant for diabetes mellitus patient did have a insulin pump for management of his underlying diabetes patient did develop swelling redness at the insulin pump needle insertion site on right lower abdominal area with concern for small abscess at that location. On today's evaluation that is 07/15/2023, the patient denies having any fever or any chills, the patient is breathing comfortably on 2 L nasal cannula oxygen, the patient denies having any chest pain shortness of breath or cough, patient still complaining of nausea but no vomiting did mention he did have a good bowel movement right lower abdominal wall area of induration swelling redness has significantly decreased. Patient did have a white count of 8.71 with a creatinine of 1.2 as of yesterday no blood draw today Objective - Vital Signs Vital signs: Vital Signs Temp 98.1 F 07/15/23 07:05 Pulse 94 07/15/23 07:05 Resp 18 07/15/23 07:05 BP 151/65 07/15/23 07:05 Pulse Ox 99 07/15/23 07:05 FiO2 Intake & Output 07/14/23 07/15/23 07/15/23 18:59 06:59 18:59 Intake Total 240 Balance 240 Intake: Oral 240 Other: Voiding Method Toilet Toilet Toilet # Voids 2 1 - Exam GENERAL DESCRIPTION: A middle-age male lying in bed in no distress RESPIRATORY SYSTEM: Unlabored breathing , decreased breath sounds at bases HEART: S1 S2 regular rate and rhythm , ABDOMEN: Soft , right lower abdominal wall with area of induration has slightly decreased and no drainage was noticed EXTREMITIES: No edema feet - Labs CBC & Chem 7: 07/14/23 06:00 07/14/23 06:00 Labs: Abnormal Lab Results - Last 24 Hours (Table) 07/14/23 07/14/23 07/14/23 Range/Units 11:49 17:03 20:03 POC Glucose (mg/dL) 419 H 285 H 291 H (70-110) mg/dL 07/15/23 Range/Units 02:06 POC Glucose (mg/dL) 194 H (70-110) mg/dL Assessment and Plan (1) Abdominal wall cellulitis Current Visit: Yes Status: Acute Code(s): L03.311 - CELLULITIS OF ABDOMINAL WALL SNOMED Code(s): 69152800 (2) Abscess of abdominal wall Current Visit: Yes Status: Acute Priority: High Code(s): L02.211 - CUTANEOUS ABSCESS OF ABDOMINAL WALL SNOMED Code(s): 77887649 Plan: 1patient with a right lower abdominal wall area of induration and swelling and redness concerning for small abscess at the insulin pump needle insertion site and will need to cover for the gram-positive skin kinjal to the likely pathogen. 2patient has shown clinical improvement as well as abdominal wall cellulitis is considered to continue with Augmentin and doxycycline and monitor his clinical course closely Dictation was produced using [employer] dictation software. please excuse any grammatical, word or spelling errors.
[2023-07-16 08:22] LABS: Glucose,Whole Blood 61 mg/dL (70-110)
[2023-07-16 08:38] LABS: Glucose,Whole Blood 78 mg/dL (70-110)
[2023-07-16] MEDS ORDERED: LORazepam 0.5 MG TAB PO STA (11:32)
[2023-07-16 12:14] LABS: Glucose,Whole Blood 244 mg/dL (70-110)
[2023-07-16] MEDS: ASPIRIN 81 MG PO SCH (12:25)
[2023-07-16] MEDS: AMOXIC-POT CLAV 875-125MG 1 EACH TAB PO SCH ×2 (12:25→20:35)
[2023-07-16] MEDS: CHOLECALCIFEROL 25 MCG (1000 IU) TABLET PO SCH (12:26)
[2023-07-16] MEDS: FOLIC ACID 1 MG TAB PO SCH (12:26)
[2023-07-16] MEDS: DOXYCYCLINE 100 MG CAP PO SCH ×2 (12:26→20:35)
[2023-07-16] MEDS: MEMANTINE 10 MG TAB PO SCH (12:27)
[2023-07-16] MEDS: HEPARIN SODIUM,PORCINE 5,000 UNIT/ML 1 ML VIAL SQ SCH ×2 (12:27→20:35)
[2023-07-16] MEDS: METOPROLOL SUCCINATE (ER) 50 MG TAB.ER.24H PO SCH ×2 (12:27→20:35)
[2023-07-16] MEDS: MULTIVITAMINS, THERA 1 EACH TAB PO SCH (12:28)
[2023-07-16] MEDS: PANTOPRAZOLE 40 MG/10 ML VIAL IVP SCH ×2 (12:28→20:35)
[2023-07-16] MEDS: CLOPIDOGREL 75 MG TAB PO SCH (12:31)
[2023-07-16] MEDS: SENNOSIDES-DOCUSATE SODIUM 1 EACH TAB PO SCH ×2 (12:32→20:35)
--- NOTE | 2023-07-16 13:38 | P.PN ---
Subjective Progress Note Date: 07/16/23 Principal diagnosis: abd abscess At today's visit patient is resting comfortably in bed. Patient reports fatigue. He also reports intermittent nausea and vomiting. Vomiting is minimal. He continues on Reglan and Zofran. Patient was started on bowel regimen due to constipation and had 2 BMs yesterday. Patient encouraged to increase oral intake and activity as tolerated. Plan for discharge today Objective - Vital Signs Vital signs: Vital Signs Temp 98.4 F 07/16/23 12:12 Pulse 65 07/16/23 12:12 Resp 18 07/16/23 12:12 BP 105/63 07/16/23 12:12 Pulse Ox 99 07/16/23 12:12 FiO2 Intake & Output 07/15/23 07/16/23 07/16/23 18:59 06:59 18:59 Weight 65.771 kg Other: Voiding Method Toilet Toilet Toilet # Voids 1 2 # Bowel Movements 1 - Constitutional General appearance: Present: average body habitus, no acute distress - EENT Eyes: Present: anicteric sclerae, EOMI ENT: Present: hearing grossly normal - Respiratory Details: breathing is even and unlabored - Cardiovascular Details: skin warm and dry - Gastrointestinal General gastrointestinal: Present: soft. Absent: distended, tenderness - Integumentary Integumentary: Present: pale. Absent: cyanotic, jaundiced - Neurologic Neurologic Comment(s): grossly intact - Musculoskeletal Musculoskeletal: Present: strength equal bilaterally - Psychiatric Psychiatric: Present: A&O x's 3, appropriate affect, intact judgment & insight - Labs CBC & Chem 7: 07/14/23 06:00 07/14/23 06:00 Labs: Abnormal Lab Results - Last 24 Hours (Table) 07/15/23 07/15/23 07/16/23 Range/Units 16:57 20:25 02:02 POC Glucose (mg/dL) 406 H 467 H 208 H (70-110) mg/dL 07/16/23 07/16/23 07/16/23 Range/Units 07:36 08:02 08:20 POC Glucose (mg/dL) 44 L 42 L 61 L (70-110) mg/dL 07/16/23 Range/Units 12:13 POC Glucose (mg/dL) 244 H (70-110) mg/dL Assessment and Plan (1) Abscess of abdominal wall Current Visit: Yes Status: Acute Priority: High Code(s): L02.211 - CUTANEOUS ABSCESS OF ABDOMINAL WALL SNOMED Code(s): 12036746 (2) Adenocarcinoma of lung, stage 4 Current Visit: Yes Status: Chronic Priority: High Code(s): C34.90 - MALIGNANT NEOPLASM OF UNSP PART OF UNSP BRONCHUS OR LUNG SNOMED Code(s): 032112018 Plan: Nausea and vomiting, constipation -Intermittent, persisting. Reports some improvement with antiemetics. Continues on reglan and zofran. Will add 1 dose of ativan for additional antiemetic support. Spoke with IM, will send pt home with script of reglan. He has script of zofran at home already. Pt encouraged to use meds prior to eating so he is better able to tolerate diet and decrease symptoms -CT of the abdomen revealed large amount of stool throughout the visualized colon. No evidence for acute abdominal process. Indeterminate left hepatic lobe enhancing lesion which is indeterminate but favored to be benign given the similar appearance dating to 06/2017. Fibrotic changes to the lung bases with large bulla in the left lung base, findings are progressed since 2014 -Constipation likely attributed to narcotics, anti-emetics and decreased oral intake. Bowel regimen added. Pt had 2 BMs yesterday. Patient encouraged to increase oral intake and activity as tolerated. Will continue pt on Senokot-S and instructed pt on use and when to d/c Abdominal wall abscess -Secondary to subcutaneous diabetic monitor. Infectious disease following, antibiotics continued. Will be discharged home on augmentin and doxycycline -Remains afebrile Metastatic adenocarcinoma of the lung -Completed cycle 4 of carboplatin/Alimta/Keytruda 06/15/2023 -It was recommended pt receive at least 2-3 additional cycles of chemo given his first 2 cycles did not contain carboplatin due to national chemotherapy shortage -This will be followed by repeat imaging to assess treatment response -Next cycle was scheduled for 07/07/2023, will be rescheduled after patient has completed antibiotics and been reassessed to ensure that he has recovered adequately to resume therapy. Will f/u in clinic next week and plan to restart treatment in 1 week if patient has acutely recovered.
[2023-07-16] MEDS: MEGESTROL 40 MG TAB PO SCH (14:00)
--- NOTE | 2023-07-16 15:11 | P.PN ---
Subjective Progress Note Date: 07/16/23 Principal diagnosis: Abdominal wall cellulitis/abscess Patient is a 62-year-old male with a past medical history significant for diabetes mellitus patient did have a insulin pump for management of his underlying diabetes patient did develop swelling redness at the insulin pump needle insertion site on right lower abdominal area with concern for small abscess at that location. On today's evaluation that is 07/16/2023, the patient is afebrile, the patient is breathing comfortably , the patient denies chest pain and no significant cough, the patient denies abdominal pain and no diarrhea, still combining of nausea and fluctuating blood sugar Patient did have a white count of 8.71 with a creatinine of 1.2 as of 07/14/2023 no blood draw today Objective - Vital Signs Vital signs: Vital Signs Temp 97.8 F 07/16/23 07:15 Pulse 83 07/16/23 07:15 Resp 16 07/16/23 07:15 BP 120/68 07/16/23 07:15 Pulse Ox 96 07/16/23 12:00 FiO2 Intake & Output 07/15/23 07/16/23 07/16/23 18:59 06:59 18:59 Other: Voiding Method Toilet Toilet Toilet # Voids 1 2 # Bowel Movements 1 - Exam GENERAL DESCRIPTION: A middle-age male lying in bed in no distress RESPIRATORY SYSTEM: Unlabored breathing , decreased breath sounds at bases HEART: S1 S2 regular rate and rhythm , ABDOMEN: Soft , right lower abdominal wall with area of induration has slightly decreased and no drainage was noticed EXTREMITIES: No edema feet - Labs CBC & Chem 7: 07/14/23 06:00 07/14/23 06:00 Labs: Abnormal Lab Results - Last 24 Hours (Table) 07/15/23 07/15/23 07/16/23 Range/Units 16:57 20:25 02:02 POC Glucose (mg/dL) 406 H 467 H 208 H (70-110) mg/dL 07/16/23 07/16/23 07/16/23 Range/Units 07:36 08:02 08:20 POC Glucose (mg/dL) 44 L 42 L 61 L (70-110) mg/dL Assessment and Plan (1) Abdominal wall cellulitis Current Visit: Yes Status: Acute Code(s): L03.311 - CELLULITIS OF ABDOMINAL WALL SNOMED Code(s): 36095108 (2) Abscess of abdominal wall Current Visit: Yes Status: Acute Priority: High Code(s): L02.211 - CUTANEOUS ABSCESS OF ABDOMINAL WALL SNOMED Code(s): 41047219 Plan: 1patient with a right lower abdominal wall area of induration and swelling and redness concerning for small abscess at the insulin pump needle insertion site and will need to cover for the gram-positive skin kinjal to the likely pathogen. 2patient has shown clinical improvement as for as abdominal wall cellulitis is considered 3- Pt to continue with Augmentin and doxycycline and monitor his clinical course closely Dictation was produced using [employer] dictation software. please excuse any grammatical, word or spelling errors. Time with Patient: Less than 30
--- NOTE | 2023-07-16 16:49 | P.PN ---
Subjective Progress Note Date: 07/16/23 07/10/2023 Patient seen and evaluated this morning being followed by infectious disease maintained on antibiotics and we'll transition to oral Augmentin and doxycycline. General surgery has cleared the patient for discharge. Blood sugars are currently controlled and working on discharge planning. Upon discharge patient reportedly developed nausea with vomiting and appears generally fatigued. Will obtain labs along with chest x-ray and reinitiate IV access and give some antinausea medications. Patient is afebrile with no reports of chest pain or shortness of breath. 07/13/2023 Patient is seen in follow-up today mostly lying in the bed reports he has been getting up and walking to the bathroom. Discussed with him the option of possible rehab for continued weakness and patient reports he can handle it at home. Patient is refusing rehab at this time. Patient encouraged to increase ambulation and walk more frequently. Patient continues with nausea with no vomiting today and continues with diffuse abdominal pain and CT abdomen is ordered per oncology which is pending at this time. Patient also maintained on antibiotics with infectious disease following and will continue on oral on discharge. Patient denies any significant drainage or tenderness noted on the right abscess site. Patient's blood sugars have been low and will discontinue the nighttime dose of long-acting and continue with daily along with sliding scale. Patient does not have his insulin pump supplies here with him. Patient is afebrile with no reported chest pain or shortness of breath. Patient chronically wears oxygen outpatient and has supplies at home. Will await CT and discuss with further consultations about discharge planning. 07/14/2023 Patient is seen in follow-up this morning continues to be laying in the bed throughout most of the day. Patient reports continued abdominal discomfort and underwent CT abdomen which showed moderate stool burden and has been placed on bowel regimen. Patient has had continued nausea but no episodes of vomiting since last night. Encouraged oral intake in small frequent meals. Patient has been started on Megace and does not really notice a difference or increased appetite at this point. Patient has been encouraged to increase activity as tolerated and walk more frequently and get up out of the bed. Patient is afebrile with no reports of chest pain or worsening shortness of breath. 07/15/2023 Patient is seen in follow-up today reports had an episode of vomiting last night and nausea this morning although ate almost all breakfast. Patient is maintained on as needed Zofran along with scheduled Reglan and will continue. Patient reports has not had a bowel movement in 3 days although is passing gas. Patient was started on Senokot scheduled as opposed to when necessary and will add Dulcolax suppository and may suggest possible enema if no results. Patient has been encouraged to increase activity as tolerated as patient is mostly lying in the bed all day. Nursing staff can confirm this as well. Patient is refusing rehab and reports can manage at home. Patient does not have any of his insulin pump diabetic supplies and will continue on current regimen. Patient is maintained on long-acting 10 units twice daily along with sliding scale and will continue. Blood sugars have been extremely uncontrolled. Patient is afebrile with no reports of chest pain or shortness of breath. Patient chronically wears oxygen in the outpatient setting. Patient maintained on oral antibiotics per infectious disease recommendations and will continue short course on discharge. 07/16/2023 Patient is seen in follow-up today reports having multiple bowel movements since yesterday and abdominal pain has lessened. Patient reporting some intermittent nausea and did have one episode of vomiting. Blood sugars were extremely low this morning and will titrate the dose of long-acting to 5 units twice daily and continue sliding scale. Patient has insulin pump with no supplies here and will resume insulin pump on discharge. Patient's blood sugars are severely uncontrolled with concerns of continued hypoglycemia even with pump. Patient reports he follows with Dr. Alexandro garcias in the outpatient setting and have instructed the patient to follow-up this week his blood sugars are uncontrolled and may need adjustments on his basal rate. Patient is to follow-up with oncology outpatient to resume his chemotherapy. Patient has been here for an extended period of time with prolonged hospitalization and almost finished on antibiotics. Infectious disease recommended a few days of Augmentin and doxycycline to complete the course. Patient is currently afebrile with no reports of chest pain or shortness of breath. Patient is eating although as mentioned previously continues to have episodes of nausea. Patient does take Zofran chronically in the outpatient setting as he frequently has nausea with vomiting in the outpatient setting. Review of systems: Constitutional: reports of fatigue, no fever, or chills Cardiovascular: No reports of chest pain or palpitations Respiratory: No reports of worsening shortness of breath or cough GI: reports of nausea, with one episode of vomiting very minimally this morning, no diarrhea, reports not much of an appetite although did eat better today. Patient has had 2 large bowel movements since yesterday : No reports of dysuria or retention Neurovascular: reports of generalized weakness All medications have been reviewed PHYSICAL EXAMINATION: GENERAL: The patient is alert and oriented x4, Well developed, ill-appearing, pale, flat affect HEENT: Pupils are round and equally reacting to light. EOMI. no scleral icterus. No conjunctival pallor. Normocephalic, atraumatic. No pharyngeal erythema. No thyromegaly. CARDIOVASCULAR: S1 and S2 muffled PULMONARY: diminished breath sounds bilaterally with no wheezing or rhonchi noted. ABDOMEN: soft. Nontender on exam. non-distended, normoactive bowel sounds. No palpable organomegaly. MUSCULOSKELETAL: No joint swelling or deformity. EXTREMITIES: No cyanosis, clubbing, or pedal edema. NEUROLOGICAL: Gross neurological examination did not reveal any focal deficits. Diffuse weakness SKIN: No rashes. Pale Assessment: Abdominal wall cellulitis and abscess insulin pump injection site, improving Nausea with vomiting, likely acute gastritis Moderate stool burden as noted on CT, improving Hypothyroidism history Weakness and fatigue Diabetes mellitus, type 1 insulin-dependent, uncontrolled with hyperglycemia History of coronary artery disease History of lung carcinoma History of CHF, unknown EF moderate protein calorie malnutrition with a BMI of 21.4 GI prophylaxis DVT prophylaxis Full code Plan: Patient being followed by multiple consultations maintained on antibiotics in the form of doxycycline and Augmentin with infectious disease following. Patient will complete a short course on discharge of oral antibiotics Oncology following and follow-up appointments will be made for patient once recovered and off antibiotics to continue with chemotherapy treatments Encouraged increased activity as tolerated and getting up out of the bed more often. Per nursing staff patient has been mostly lying in the bed this entire admission Encouraged oral intake and will continue on Megace Blood sugars extremely uncontrolled patient having episodes of hyperglycemia as well as hypoglycemia. Patient will continue on low-dose long-acting twice daily along with sliding scale. Have adjusted the long-acting to 5 units twice daily. Patient does not have his insulin pump supplies to resume and reports he will resume once he gets home. Patient is refusing to go home with sliding scale at this time. Patient is maintained on Senokot scheduled as opposed to when necessary as patient had not had a bowel movement in 2-3 days with continuing nausea and vomiting. Patient has had a few bowel movements and will continue on scheduled Senokot Due to multiple complex medical issues, prognosis is guarded Patient will discharge in the next 24 hours The impression and plan of care has been dictated by Juliana Currie, nurse practitioner as directed. Dr. Jacobo VALDES I have performed a history and examination and MDM of this patient, discussed the same with the dictator, and agree with the dictator's assessment and plan as written ,documented as a scribe. Based on total visit time, I have performed more than 50% of the visit. Any additional findings or plans will be noted. Objective - Vital Signs Vital signs: Vital Signs Temp 97.8 F 07/16/23 07:15 Pulse 83 07/16/23 07:15 Resp 16 07/16/23 07:15 BP 120/68 07/16/23 07:15 Pulse Ox 97 07/16/23 07:15 FiO2 Intake & Output 07/15/23 07/16/23 07/16/23 18:59 06:59 18:59 Other: Voiding Method Toilet Toilet Toilet # Voids 1 2 # Bowel Movements 1 - Labs CBC & Chem 7: 07/14/23 06:00 07/14/23 06:00 Labs: Abnormal Lab Results - Last 24 Hours (Table) 07/15/23 07/15/23 07/15/23 Range/Units 11:34 16:57 20:25 POC Glucose (mg/dL) 406 H 406 H 467 H (70-110) mg/dL 07/16/23 07/16/23 07/16/23 Range/Units 02:02 07:36 08:02 POC Glucose (mg/dL) 208 H 44 L 42 L (70-110) mg/dL 07/16/23 Range/Units 08:20 POC Glucose (mg/dL) 61 L (70-110) mg/dL
[2023-07-16 17:21] LABS: Glucose,Whole Blood 324 mg/dL (70-110)
[2023-07-16] MEDS: ATORVASTATIN 80 MG TAB PO SCH (20:35)
[2023-07-16 20:52] LABS: Glucose,Whole Blood 194 mg/dL (70-110)
[2023-07-16] MEDS: INSULIN DETEMIR (LEVEMIR) 100 UNIT/ML SYR SQ SCH (21:37)
[2023-07-17] MEDS: METOCLOPRAMIDE 5 MG/ML 2 ML VIAL IVP SCH ×3 (00:06→13:19)
[2023-07-17 01:48] LABS: Glucose,Whole Blood 212 mg/dL (70-110)
[2023-07-17] MEDS: INSULIN ASPART (NovoLOG) 100 UNIT/ML VIAL SQ SCH ×3 (02:17→13:19)
[2023-07-17] MEDS: LEVOTHYROXINE 75 MCG TAB PO SCH (05:18)
[2023-07-17 07:08] LABS: Glucose,Whole Blood 159 mg/dL (70-110)
[2023-07-17] MEDS: INSULIN DETEMIR (LEVEMIR) 100 UNIT/ML SYR SQ SCH (08:35)
[2023-07-17] MEDS: HYDROcodone/APAP 5-325MG 1 EACH TAB PO PRN (08:41)
[2023-07-17] MEDS: ONDANSETRON 4 MG/2 ML VIAL IVP PRN (08:41)
[2023-07-17] MEDS: CHOLECALCIFEROL 25 MCG (1000 IU) TABLET PO SCH (10:05)
[2023-07-17] MEDS: MULTIVITAMINS, THERA 1 EACH TAB PO SCH (10:06)
[2023-07-17] MEDS: ASPIRIN 81 MG PO SCH (10:06)
[2023-07-17] MEDS: SENNOSIDES-DOCUSATE SODIUM 1 EACH TAB PO SCH (10:06)
[2023-07-17] MEDS: CLOPIDOGREL 75 MG TAB PO SCH (10:06)
[2023-07-17] MEDS: DOXYCYCLINE 100 MG CAP PO SCH (10:06)
[2023-07-17] MEDS: FOLIC ACID 1 MG TAB PO SCH (10:06)
[2023-07-17] MEDS: MEGESTROL 40 MG TAB PO SCH (10:06)
[2023-07-17] MEDS: AMOXIC-POT CLAV 875-125MG 1 EACH TAB PO SCH (10:06)
[2023-07-17] MEDS: METOPROLOL SUCCINATE (ER) 50 MG TAB.ER.24H PO SCH (10:06)
[2023-07-17] MEDS: PANTOPRAZOLE 40 MG/10 ML VIAL IVP SCH (10:07)
[2023-07-17] MEDS: HEPARIN SODIUM,PORCINE 5,000 UNIT/ML 1 ML VIAL SQ SCH (10:07)
[2023-07-17] MEDS: MEMANTINE 10 MG TAB PO SCH (10:07)
[2023-07-17 11:46] LABS: Glucose,Whole Blood 210 mg/dL (70-110)
[2023-07-17 15:32] VITALS: BP 112/63; PULSE 78; RESP 15; TEMP 97.7
--- NOTE | 2023-07-17 16:26 | P.PN ---
Subjective Progress Note Date: 07/17/23 Principal diagnosis: abd abscess At today's visit patient is resting comfortably in bed. Reports improvement in n/v. Tolerating oral intake. He continues on Reglan and Zofran. Patient was started on bowel regimen due to constipation and had 3 BMs in the last 36 hours. Patient encouraged to increase oral intake and activity as tolerated. Plan for discharge today Objective - Vital Signs Vital signs: Vital Signs Temp 97.7 F 07/17/23 13:41 Pulse 78 07/17/23 13:41 Resp 15 07/17/23 13:41 BP 112/63 07/17/23 13:41 Pulse Ox 99 07/17/23 13:41 FiO2 Intake & Output 07/16/23 07/17/23 07/17/23 18:59 06:59 18:59 Weight 65.771 kg Other: Voiding Method Toilet Toilet Toilet # Voids 2 - Constitutional General appearance: Present: average body habitus, no acute distress - EENT Eyes: Present: anicteric sclerae, EOMI ENT: Present: hearing grossly normal - Respiratory Details: breathing is even and unlabored - Cardiovascular Details: skin is warm and dry - Gastrointestinal General gastrointestinal: Present: soft. Absent: tenderness - Integumentary Integumentary: Absent: cyanotic, jaundiced - Neurologic Neurologic Comment(s): grossly intact - Musculoskeletal Musculoskeletal: Present: strength equal bilaterally - Psychiatric Psychiatric: Present: A&O x's 3, appropriate affect, intact judgment & insight - Labs CBC & Chem 7: 07/14/23 06:00 07/14/23 06:00 Labs: Abnormal Lab Results - Last 24 Hours (Table) 07/16/23 07/16/23 07/17/23 Range/Units 17:20 20:28 01:38 POC Glucose (mg/dL) 324 H 194 H 212 H (70-110) mg/dL 07/17/23 07/17/23 Range/Units 07:06 11:44 POC Glucose (mg/dL) 159 H 210 H (70-110) mg/dL Assessment and Plan (1) Abscess of abdominal wall Current Visit: Yes Status: Acute Priority: High Code(s): L02.211 - CUT ANEOUS ABSCESS OF ABDOMINAL WALL SNOMED Code(s): 14215971 (2) Adenocarcinoma of lung, stage 4 Current Visit: Yes Status: Chronic Priority: High Code(s): C34.90 - MALIGNANT NEOPLASM OF UNSP PART OF UNSP BRONCHUS OR LUNG SNOMED Code(s): 399973603 Plan: Nausea and vomiting, constipation -Intermittent, persisting. Reports some improvement with antiemetics. Continues on reglan and zofran. 1 dose of ativan given yesterday for additional antiemetic support. Spoke with IM team, will send pt home with script of reglan. Plan to d/c home today. He has script of zofran at home already. Pt encouraged to use meds prior to eating so he is better able to tolerate diet and decrease symptoms -CT of the abdomen revealed large amount of stool throughout the visualized colon. No evidence for acute abdominal process. Indeterminate left hepatic lobe enhancing lesion which is indeterminate but favored to be benign given the similar appearance dating to 06/2017. Fibrotic changes to the lung bases with large bulla in the left lung base, findings are progressed since 2014 -Constipation likely attributed to narcotics, anti-emetics and decreased oral intake. Bowel regimen added. Pt has had 3 BMs in the last 36 hours. Patient encouraged to increase oral intake and activity as tolerated. Will continue pt on Senokot-S and instructed pt on use and when to d/c Abdominal wall abscess -Secondary to subcutaneous diabetic monitor. Infectious disease following, antibiotics continued. Will be discharged home on augmentin and doxycycline -Remains afebrile Metastatic adenocarcinoma of the lung -Completed cycle 4 of carboplatin/Alimta/Keytruda 06/15/2023 -It was recommended pt receive at least 2-3 additional cycles of chemo given his first 2 cycles did not contain carboplatin due to national chemotherapy shortage -This will be followed by repeat imaging to assess treatment response -Next cycle was scheduled for 07/07/2023, will be rescheduled after patient has completed antibiotics and been reassessed to ensure that he has recovered adequately to resume therapy. Will f/u in clinic next week and plan to restart treatment in 1 week if patient has adequately recovered. Pt updated on POC *Patient is cleared for discharge from heme/onc standpoint once cleared by IM and other consulted medical specialties
--- NOTE | 2023-07-17 16:37 | P.PN ---
Subjective Progress Note Date: 07/17/23 Principal diagnosis: Abdominal wall cellulitis/abscess Patient is a 62-year-old male with a past medical history significant for diabetes mellitus patient did have a insulin pump for management of his underlying diabetes patient did develop swelling redness at the insulin pump needle insertion site on right lower abdominal area with concern for small abscess at that location. On today's evaluation that is 07/17/2023, the patient remains to be afebrile, the patient is breathing comfortably , the patient denies chest pain and no significant cough, the patient still complaining of some nausea but in no vomiting no abdominal pain and no diarrhea, Patient did have a white count of 8.71 with a creatinine of 1.2 as of 07/14/2023 no blood draw today Objective - Vital Signs Vital signs: Vital Signs Temp 98.2 F 07/17/23 07:50 Pulse 61 07/17/23 07:50 Resp 14 07/17/23 07:50 BP 123/79 07/17/23 07:50 Pulse Ox 99 07/17/23 11:06 FiO2 Intake & Output 07/16/23 07/17/23 07/17/23 18:59 06:59 18:59 Weight 65.771 kg Other: Voiding Method Toilet Toilet Toilet # Voids 2 - Exam GENERAL DESCRIPTION: A middle-age male lying in bed in no distress RESPIRATORY SYSTEM: Unlabored breathing , decreased breath sounds at bases HEART: S1 S2 regular rate and rhythm , ABDOMEN: Soft , right lower abdominal wall with area of induration has slightly decreased and no drainage was noticed EXTREMITIES: No edema feet - Labs CBC & Chem 7: 07/14/23 06:00 07/14/23 06:00 Labs: Abnormal Lab Results - Last 24 Hours (Table) 07/16/23 07/16/23 07/17/23 Range/Units 17:20 20:28 01:38 POC Glucose (mg/dL) 324 H 194 H 212 H (70-110) mg/dL 07/17/23 07/17/23 Range/Units 07:06 11:44 POC Glucose (mg/dL) 159 H 210 H (70-110) mg/dL Assessment and Plan (1) Abdominal wall cellulitis Current Visit: Yes Status: Acute Code(s): L03.311 - CELLULITIS OF ABDOMINAL WALL SNOMED Code(s): 74526063 (2) Abscess of abdominal wall Current Visit: Yes Status: Acute Priority: High Code(s): L02.211 - CUTANEOUS ABSCESS OF ABDOMINAL WALL SNOMED Code(s): 95943344 Plan: 1patient with a right lower abdominal wall area of induration and swelling and redness concerning for small abscess at the insulin pump needle insertion site and will need to cover for the gram-positive skin kinjal to the likely pathogen. 2patient has shown clinical improvement as for as abdominal wall cellulitis is considered, patient to continue with Augmentin and doxycycline for another few days Dictation was produced using [employer] dictation software. please excuse any grammatical, word or spelling errors. Time with Patient: Less than 30
== END 2023-07-17 17:17 | disposition home health service (06) | DRG 920 ==
LOC: EC 20:20 → 6NMEDSUR 07-06 00:33 → 5NMEDONC 07-06 06:13 → OBSVTOIN 07-08 12:27
PROVIDERS: ADMIT Hospitalist; ATTEND Hospitalist
DX: T85.72XA Infection and inflammatory reaction due to insulin pump, initial encounter (principal); C34.90 Malignant neoplasm of unspecified part of unspecified bronchus or lung; E44.0 Moderate protein-calorie malnutrition; I13.0 Hypertensive heart and chronic kidney disease with heart failure and stage 1 through stage 4 chronic kidney disease, or unspecified chronic kidney disease; I50.32 Chronic diastolic (congestive) heart failure; J96.10 Chronic respiratory failure, unspecified whether with hypoxia or hypercapnia; L02.211 Cutaneous abscess of abdominal wall; L03.311 Cellulitis of abdominal wall; E03.9 Hypothyroidism, unspecified; E10.65 Type 1 diabetes mellitus with hyperglycemia; Z68.21 Body mass index [BMI] 21.0-21.9, adult; E78.5 Hyperlipidemia, unspecified; E86.0 Dehydration; F32.A Depression, unspecified; F41.9 Anxiety disorder, unspecified; G89.4 Chronic pain syndrome; E10.22 Type 1 diabetes mellitus with diabetic chronic kidney disease; J44.9 Chronic obstructive pulmonary disease, unspecified; J84.10 Pulmonary fibrosis, unspecified; I25.10 Atherosclerotic heart disease of native coronary artery without angina pectoris; K29.00 Acute gastritis without bleeding; K59.00 Constipation, unspecified; L02.93 Carbuncle, unspecified; M19.90 Unspecified osteoarthritis, unspecified site; Z96.41 Presence of insulin pump (external) (internal); D63.1 Anemia in chronic kidney disease; N18.9 Chronic kidney disease, unspecified; Z79.02 Long term (current) use of antithrombotics/antiplatelets; Z79.4 Long term (current) use of insulin; Z79.82 Long term (current) use of aspirin; Z79.890 Hormone replacement therapy; Z79.899 Other long term (current) drug therapy; Z80.1 Family history of malignant neoplasm of trachea, bronchus and lung; Z82.49 Family history of ischemic heart disease and other diseases of the circulatory system; Z85.118 Personal history of other malignant neoplasm of bronchus and lung; Z86.711 Personal history of pulmonary embolism; Z87.11 Personal history of peptic ulcer disease; Z87.891 Personal history of nicotine dependence; Z99.81 Dependence on supplemental oxygen
CPT/HCPCS: 36415; 71045; 74160; 76705; 80048; 80053; 80202; 81003; 82565; 83036; 83605; 83735; 83880; 84100; 84145; 84439; 84443; 84484; 85025; 85610; 85730; 86140; 93005; 94760; 96361; 96365; 96366; 96367; 96375; 96376; 99285

== ENCOUNTER 2023-08-16 13:48 | Inpatient (IN) | payer MEDICARE ==
[2023-08-16 14:02] LABS: Glucose,Whole Blood 36 mg/dL (70-110)
[2023-08-16] MEDS ORDERED: SODIUM CHLORIDE 0.9% 500 ML 500 ML IV ONE (14:03)
[2023-08-16] MEDS ORDERED: DEXTROSE 50% SYRINGE 50 ML IVP STA ×4 (14:04→18:30)
[2023-08-16 14:24] LABS: Anisocytosis Slight; Basophils % (A) 0 %; Eosinophils # (A) 0.2 k/uL (0-0.7); Eosinophils % (A) 1 %; HCT 23.7 % (39.0-53.0); HGB 8.6 gm/dL (13.0-17.5); Hyperchromasia Slight; Lymphocytes # (A) 0.8 k/uL (1.0-4.8); Lymphocytes % (A) 7 %; MCH 32.8 pg (25.0-35.0); MCHC 36.2 g/dL (31.0-37.0); MCV 90.5 fL (80.0-100.0); Mean Platelet Volume 7.6; Monocytes # (A) 0.4 k/uL (0-1.0); Monocytes % (A) 3 %; Neutrophils # (A) 10.8 k/uL (1.3-7.7); Neutrophils % (A) 87 %; Platelet Count 205 k/uL (150-450); RBC 2.62 m/uL (4.30-5.90); RDW 19.6 % (11.5-15.5); WBC 12.4 k/uL (3.8-10.6)
[2023-08-16 14:37] LABS: Glucose,Whole Blood 128 mg/dL (70-110)
[2023-08-16 14:42] LABS: ALT 13 U/L (4-49); AST 47 U/L (17-59); African American GFR (CKD) >90 (>60 ml/min/1.73 sqM); Albumin 2.9 g/dL (3.5-5.0); Alkaline Phosphatase 135 U/L (38-126); Anion Gap 10 mmol/L; Blood Urea Nitrogen 21 mg/dL (9-20); Calcium 8.2 mg/dL (8.4-10.2); Carbon Dioxide 24 mmol/L (22-30); Chloride 82 mmol/L (98-107); Non-African American GFR(CKD) 85 (>60 ml/min/1.73 sqM); Potassium 3.8 mmol/L (3.5-5.1); Total Bilirubin 0.3 mg/dL (0.2-1.3); Total Protein 5.6 g/dL (6.3-8.2)
[2023-08-16 14:45] LABS: Partial Thromboplastin Time 27.3 sec (22.0-30.0); Prothrombin Time 11.1 sec (10.0-12.5)
--- NOTE | 2023-08-16 14:51 | CT ---
EXAMINATION TYPE: CT brain wo con CT DLP: 1189.4 mGycm, Automated exposure control for dose reduction was used. DATE OF EXAM: 08/16/2023 2:24 PM COMPARISON: None. CLINICAL INDICATION:Male, 63 years old with history of Altered mental status, ams TECHNIQUE: Brain: Axial CT images of the brain were obtained with coronal and sagittal reformats created and rev iewed. Contrast used: None. Oral contrast used: None. FINDINGS: Brain: Motion limited exam. Extra-axial spaces: No abnormal extra-axial fluid collections. Ventricular system: Dilatation in proportion to cerebral atrophy. Cerebral parenchyma: No acute intraparenchymal hemorrhage or mass effect. The garrison-white junction is well differentiated. Cerebellum: Encephalomalacia in the posterior right cerebellar hemisphere consistent with remote inf arct/ insult. Mass effect: No evidence of midline shift. Intracranial vasculature: Atherosclerotic calcifications of the intracranial vessels. Soft tissues: No acute abnormality. Postoperative changes posteriorly overlying the posterior cranial fossa. Radiodensity partially seen in the posterior left neck soft tissues, may be portion of old ab andoned shunt. Calvarium/osseous structures: No evidence of acute fracture. Possible remote nickie hole in the superio r calvarium on the right. Osseous defect consistent with previous craniotomy along the right occipita l bone posteriorly. Paranasal sinuses and mastoid air cells: No evidence of significant fluid in the paranasal sinuses. O pacification throughout the bilateral mastoid air cells, could be chronic. Visualized orbits: Visualized orbits appear grossly unremarkable. IMPRESSION: 1. No acute intracranial CT abnormality. 2. Generalized atrophy and remote infarct/insult right cerebral hemisphere.
--- NOTE | 2023-08-16 14:55 | XR ---
EXAMINATION TYPE: XR chest 2V DATE OF EXAM: 08/16/2023 2:26 PM CLINICAL INDICATION:Male, 63 years old with history of altered mental status; [facility] COMPARISON: 07/10/2023 TECHNIQUE: XR chest 2V Frontal and lateral views of the chest. FINDINGS: Lines/Tubes: Neurostimulator pack over the left chest with leads extending into the bilateral neck. Right chest Me diport with catheter tip over the mid SVC. Lungs/Pleura: Coarsened interstitium, greatest in the mid to lower lung zones, likely chronic changes /scarring. Emphysematous bullous change at the left lung base, and probably right midlung zone. No de finite focal airspace consolidation, sizable effusion, or pneumothorax. Pulmonary vascularity: Unremarkable. Heart/mediastinum: Heart appears mildly enlarged. Mildly tortuous aorta. Musculoskeletal: No acute osseous pathology. Remote healed left clavicle fracture. Generalized osteop enia. Degenerative changes of the spine. Other findings: None IMPRESSION: No acute cardiopulmonary disease/process. Background chronic interstitial changes/COPD.
[2023-08-16 15:12] LABS: Glucose 27 mg/dL (74-99)
[2023-08-16 15:13] LABS: Sodium 116 mmol/L (137-145)
[2023-08-16 15:16] LABS: Glucose,Whole Blood 79 mg/dL (70-110)
[2023-08-16] MEDS ORDERED: DEXTROSE 5%-0.9% NACL 1,000 ML IV SCH (15:30)
[2023-08-16] MEDS ORDERED: NALOXONE 0.4 MG/ML 1 ML VIAL IV PRN (15:55)
--- NOTE | 2023-08-16 16:12 | ED ---
Altered Mental Status HPI - General Chief Complaint: Altered Mental Status Stated Complaint: SHINGLES Time Seen by Provider: 08/16/23 13:55 Source: EMS Mode of arrival: EMS Limitations: altered mental status - History of Present Illness Initial Comments: 63-year-old male past history of lung cancer, COPD, diabetes who presents to the emergency department from [facility]. Patient has accompanied paperwork which demonstrates that he has been a [facility] for 3 days. Previously he was hospitalized at [facility] for abdominal wall cellulitis and hy ponatremia. He was discharged to [facility] on antibiotics. He was also diagnosed with shingles to his right shoulder and was placed on antivirals. Today the patient was brought into the emergency department for altered mental status. They state that he was his normal self this morning. He was asking for pain medications and therefore was given a [place]. They state that 15 minutes after the [place] administration they went back in the room to check on him and he was altered and they took his glucose and it was noted to be over 500. They did administer his insulin this morning. Patient transported into the emergency department. He does answer some questions appropriately however is extremely lethargic. EMS found the patient to have a glucose of 75. No reported nausea or vomiting. No chest pain or trouble breathing. Patient cannot provide much history and therefore the HPI is limited - Related Data Home Medications Medication Instructions Recorded Confirmed Metoprolol Succinate (ER) [Toprol 25 mg PO DAILY 10/05/22 08/16/23 XL] Multivitamins, Thera [Multivitamin 1 tab PO DAILY 12/16/22 08/16/23 (formulary)] Cholecalciferol [Vitamin D3 (25 50 mcg PO DAILY 07/06/23 08/16/23 Mcg = 1000 Iu)] Ondansetron [Zofran] 4 mg PO Q4H PRN 07/06/23 08/16/23 0.9 % Sodium Chloride [Sodium 10 ml IV Q8H 08/16/23 08/16/23 Chloride Flush] Acyclovir Sodium Intravenous 635 mg IV TID 08/16/23 08/16/23 Solution Budesonide [Pulmicort] 0.5 mg INHALATION RT-BID 08/16/23 08/16/23 Carbamide Peroxide [Debrox Otic] 5 drops BOTH EARS BID 08/16/23 08/16/23 Ezetimibe [Zetia] 10 mg PO HS 08/16/23 08/16/23 Gabapentin [Neurontin] 100 mg PO TID 08/16/23 08/16/23 HYDROcodone/APAP 5-325MG [[place] 1 tab PO Q6HR PRN 08/16/23 08/16/23 5-325] Insulin Lispro [humaLOG Kwikpen] 10 unit SQ AC-TID 08/16/23 08/16/23 Insulin Lispro [humaLOG Kwikpen] See Protocol SQ ACHS 08/16/23 08/16/23 Ipratropium-Albuterol Nebulize 3 ml INHALATION RT-Q6H 08/16/23 08/16/23 [Duoneb 0.5 mg-3 mg/3 ml Soln] L.acidoph,Paracasei, B.lactis 1 cap PO BID 08/16/23 08/16/23 [Probiotic] Levothyroxine Sodium [Synthroid] 100 mcg PO DAILY 08/16/23 08/16/23 Lidocaine 5% Patch [Lidoderm] 1 patch TOPICAL DAILY 08/16/23 08/16/23 Magnesium Oxide [Magox 400] 400 mg PO DAILY 08/16/23 08/16/23 Midodrine [ProAmatine] 5 mg PO AC-TID 08/16/23 08/16/23 Pantoprazole Sodium [Protonix] 40 mg PO DAILY 08/16/23 08/16/23 buPROPion [Wellbutrin] 150 mg PO BID 08/16/23 08/16/23 ceFAZolin [Kefzol] 2 gm IVP Q8HR 08/16/23 08/16/23 droNABinol [Marinol] 2.5 mg PO BID 08/16/23 08/16/23 predniSONE 5 mg PO DAILY 08/16/23 08/16/23 Previous Rx's Medication Instructions Recorded Aspirin EC [Ecotrin Low Dose] 81 mg PO DAILY #30 tab 03/29/21 Atorvastatin [Lipitor] 80 mg PO HS #90 tab 03/29/21 Clopidogrel [Plavix] 75 mg PO DAILY #90 tab 10/07/22 Allergies Allergy/AdvReac Type Severity Reaction Status Date / Time No Known Allergies Allergy Verified 08/16/23 16:49 Review of Systems ROS Statement: Those systems with pertinent positive or pertinent negative responses have been documented in the HPI. ROS Other: All systems not noted in ROS Statement are negative. Past Medical History Past Medical History: Coronary Artery Disease (CAD), Cancer, Heart Failure, C OPD, Diabetes Mellitus, GI Bleed, Hyperlipidemia, Hypertension, Osteoarthritis (OA), Pneumonia, Pulmonary Embolus (PE), Renal Disease, Respiratory Disorder, Vascular Disorder Additional Past Medical History / Comment(s): hx. 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 History of Any Multi-Drug Resistant Organisms: MRSA Date of last positivie culture/infection: 03/15/17 MDRO Source:: genital Past Surgical History: Back Surgery, Cholecystectomy, Heart Catheterization, Heart Catheterization With Stent Additional Past Surgical History / Comment(s): EGD's, 07/26/15 IVC filter, BACK STIMULATORS x 2 -cervical and lumbar,FEMORAL BYPASS RT LEG X3, metal chips removed from bilateral eyes Past Anesthesia/Blood Transfusion Reactions: No Reported Reaction Additional Past Anesthesia/Blood Transfusion Reaction / Comment(s): Pt has received blood transfusions without reaction. Date of Last Stent Placement:: Past Psychological History: Anxiety, Depression Smoking Status: Former smoker Past Alcohol Use History: None Reported Past Drug Use History: None Reported - Past Family History Father History Unknown: Yes Family Medical History: Myocardial Infarction ([place]) Additional Family Medical History / Comment(s): due to heart attack Mother History Unknown: Yes Family Medical History: Cancer Additional Family Medical History / Comment(s): LUNG CANCER General Exam Limitations: altered mental status General appearance: lethargic, cachectic Head exam: Present: atraumatic, normocephalic, normal inspection Eye exam: Present: normal appearance, PERRL, EOMI. Absent: scleral icterus, conjunctival injection, periorbital swelling ENT exam: Present: mucous membranes dry Respiratory exam: Present: normal lung sounds bilaterally. Absent: respiratory distress, wheezes, rales, rhonchi, stridor Cardiovascular Exam: Present: regular rate, normal rhythm, normal heart sounds. Absent: systolic murmur, diastolic murmur, rubs, gallop, clicks GI/Abdominal exam: Present: soft, distended Extremities exam: Present: normal inspection, full ROM, normal capillary refill. Absent: tenderness, pedal edema, joint swelling, calf tenderness Back exam: Present: other (vesicular lesions right posterior shoulder) Neurological exam: Present: altered, other (oriented x 1) Psychiatric exam: Present: flat affect Skin exam: Present: dry Course Vital Signs 08/16/23 08/16/23 08/16/23 13:52 14:51 17:29 Pulse Rate 86 89 76 Respiratory 24 18 18 Rate Blood Pressure 88/61 117/76 91/58 O2 Sat by Pulse 97 98 98 Oximetry 08/16/23 08/16/23 08/16/23 18:29 20:51 21:06 Pulse Rate 75 80 81 Respiratory 18 Rate Blood Pressure 118/74 O2 Sat by Pulse 96 Oximetry - Reevaluation(s) Reevaluation #1: Spoke with Dr. Bhat. Is agreeable to D5.9 at this time at 100 mL per hour. Will recheck sodium to ensure improvement 08/16/23 1827 Reevaluation #2: Spoke with Dr. Childs - accepts patient into ICU. Notified dr. Owen. Paging Dr. Bhat 08/16/23 2100 Medical Decision Making - Medical Decision Making Was pt. sent in by a medical professional or institution (, [facility], FLIGHT SURGEON, urgent care, hospital, or care home...) When possible be specific @ -Patient was sent in by his extended-care facility Did you speak to anyone other than the patient for history (EMS, parent, family, police, friend...)? What history was obtained from this source @ -Spoke with EMS in regards to his history Did you review nursing and triage notes (agree or disagree)? Why? @ -I reviewed and agree with nursing and triage notes Were old charts reviewed (outside hosp., previous admission, EMS record, old EKG, old radiological studies, urgent care reports/EKG's, care home records)? Report findings @ -Reviewed patient's hospitalization paperwork and medication list from extended-care facility Differential Diagnosis (chest pain, altered mental status, abdominal pain women, abdominal pain men, vaginal bleeding, weakness, fever, dyspnea, syncope, headache, dizziness, GI bleed, back pain, seizure, CVA, palpatations, mental health, musculoskeletal)? @ -Differential Altered Mental Status: Hypoglycemia, DKA, hypercapnia, ETOH, overdose, CO poisoning, trauma, myxedema coma, HTN encephalopathy, infection, encephalitis, psychosis, intercranial hemorrhage, hepatic encephalopathy, meningitis, CVA, this is not meant to be an all-inclusive list EKG interpreted by me (3pts min.). @ -Yes and demonstrates sinus rhythm with rate of 84. OR interval 160. QRS 174. QTC of 480. Significant baseline artifact. Right bundle branch block. No acute ST segment elevations X-rays interpreted by me (1pt min.). @ -Yes and demonstrates no acute intrathoracic process CT interpreted by me (1pt min.). @ -Yes and demonstrates no acute intracranial process U/S interpreted by me (1pt. min.). @ -None done What testing was considered but not performed or refused? (CT, X-rays, U/S, labs)? Why? @ -None What meds were considered but not given or refused? Why? @ -None Did you discuss the management of the patient with other professionals (professionals i.e. , PA, FLIGHT SURGEON, lab, RT, psych nurse, social insurance administrator, solvent mixer, teacher, mobile patrol officer, keycase assembler)? Give summary @ -Spoke with Dr. Bhat in regards to hyponatremia. I also spoke with Dr. Roman when the patient's glucose continued to decline. Dr. Acevedo did agree to accept the patient for admission Was smoking cessation discussed for >3mins.? @ -No Was critical care preformed (if so, how long)? @ -Yes, 35 minutes for management of hypoglycemia Were there social determinants of health that impacted care today? How? (Homelessness, low income, unemployed, alcoholism, drug addiction, transportation, low edu. Level, literacy, decrease access to med. care, [facility], rehab)? @ -Patient resides at an [facility] currently Was there de-escalation of care discussed even if they declined (Discuss DNR or withdrawal of care, Hospice)? DNR status @ -No What co-morbidities impacted this encounter? (DM, HTN, Smoking, COPD, CAD, Cancer, CVA, ARF, Chemo, Hep., AIDS, mental health diagnosis, sleep apnea, morbid obesity)? @ -Lung cancer, COPD, diabetes Was patient admitted / discharged? Hospital course, mention meds given and route, prescriptions, significant lab abnormalities, going to OR and other pertinent info. @ -Upon arrival patient was placed in a trauma 2. Thorough history and physical exam was performed. IV access was established. Laboratory studies are conducted. Glucose for us is found to be 36. Patient is given an amp of dextrose. CT of the brain and cervical spine is performed. Chest x-ray also performed. Laboratory studies are remarkable for a sodium of 116. Glucose of 27. TSH of 18.7 with a low free T4 0.58. I did add on urine studies. Patient's glucose is checked on a every basis which does show improvement in his blood sugar temporarily however it does fall again. Because of this the patient is placed on a D5 drip. We do attempt to get the patient to eat something by mouth. He is able to take and a little bit of orange juice. CT of the brain demonstrates no acute intracranial process. I did speak with Dr. Bhat in regards to the patient's low sodium. Does recommend continued D5 0.9 at 100 per hour with recheck. I spoke with Dr. Acevedo who will admit the patient. Patient is currently awaiting a bed on the floor in stable condition Patient does have a decline in his sodium. Because of this I did call and speak with Dr. Childs. Patient will be transitioned to D10. Awaiting callback from Dr. Bhat. He will be admitted to the ICU Undiagnosed new problem with uncertain prognosis? @ -yes Drug Therapy requiring intensive monitoring for toxicity (Heparin, Nitro, Insulin, Cardizem)? @ -No Were any procedures done? @ -No Diagnosis/symptom? @ -Acute encephalopathy, recurrent hypoglycemia, acute hyponatremia Acute, or Chronic, or Acute on Chronic? @ -Acute Uncomplicated (without systemic symptoms) or Complicated (systemic symptoms)? @ -complicated Side effects of treatment? @ -No Exacerbation, Progression, or Severe Exacerbation? @ -No Poses a threat to life or bodily function? How? (Chest pain, [place], [place], pneumonia, PE, COPD, DKA, ARF, appy, cholecystitis, CVA, Diverticulitis, Homicidal, Suicidal, threat to staff... and all critical care pts) @ -yes, patient has recurrent low blood sugar - Lab Data Result diagrams: 08/16/23 14:06 08/16/23 20:10 Lab Results 08/16/23 08/16/23 08/16/23 Range/Units 14:01 14:06 14:06 WBC 12.4 H (3.8-10.6) k/uL RBC 2.62 L (4.30-5.90) m/uL Hgb 8.6 L (13.0-17.5) gm/dL Hct 23.7 L (39.0-53.0) % MCV 90.5 (80.0-100.0) fL MCH 32.8 (25.0-35.0) pg MCHC 36.2 (31.0-37.0) g/dL RDW 19.6 H (11.5-15.5) % Plt Count 205 (150-450) k/uL MPV 7.6 Neutrophils % 87 % Lymphocytes % 7 % Monocytes % 3 % Eosinophils % 1 % Basophils % 0 % Neutrophils # 10.8 H (1.3-7.7) k/uL Lymphocytes # 0.8 L (1.0-4.8) k/uL Monocytes # 0.4 (0-1.0) k/uL Eosinophils # 0.2 (0-0.7) k/uL Basophils # 0.0 (0-0.2) k/uL Hyperchromasia Slight Anisocytosis Slight PT 11.1 (10.0-12.5) sec INR 1.0 (<1.2) APTT 27.3 (22.0-30.0) sec Sodium (137-145) mmol/L Potassium (3.5-5.1) mmol/L Chloride (98-107) mmol/L Carbon Dioxide (22-30) mmol/L Anion Gap mmol/L BUN (9-20) mg/dL Creatinine (0.66-1.25) mg/dL Est GFR (CKD-EPI)AfAm (>60 ml/min/1.73 sqM) Est GFR (CKD-EPI)NonAf (>60 ml/min/1.73 sqM) Glucose (74-99) mg/dL POC Glucose (mg/dL) 36 L (70-110) mg/dL POC Glu Spa Experience Coordinator ID [facility] Osmolality ([phone]) mosm/kg Calcium (8.4-10.2) mg/dL Total Bilirubin (0.2-1.3) mg/dL AST (17-59) U/L ALT (4-49) U/L Alkaline Phosphatase (38-126) U/L Troponin I (0.000-0.034) ng/mL Total Protein (6.3-8.2) g/dL Albumin (3.5-5.0) g/dL TSH (0.465-4.680) mIU/L Free T4 (0.78-2.19) ng/dL Urine Color Urine Appearance (Clear) Urine pH (5.0-8.0) Ur Specific [place] (1.001-1.035) Urine Protein (Negative) Urine Glucose (UA) (Negative) Urine Ketones (Negative) Urine Blood (Negative) Urine Nitrite (Negative) Urine Bilirubin (Negative) Urine Urobilinogen (<2.0) mg/dL Ur Leukocyte Esterase (Negative) Urine Osmolality (50-1400) mosm/kg Ur Random Creatinine mg/dL 08/16/23 08/16/23 08/16/23 Range/Units 14:06 14:06 14:06 WBC (3.8-10.6) k/uL RBC (4.30-5.90) m/uL Hgb (13.0-17.5) gm/dL Hct (39.0-53.0) % MCV (80.0-100.0) fL MCH (25.0-35.0) pg MCHC (31.0-37.0) g/dL RDW (11.5-15.5) % Plt Count (150-450) k/uL MPV Neutrophils % % Lymphocytes % % Monocytes % % Eosinophils % % Basophils % % Neutrophils # (1.3-7.7) k/uL Lymphocytes # (1.0-4.8) k/uL Monocytes # (0-1.0) k/uL Eosinophils # (0-0.7) k/uL Basophils # (0-0.2) k/uL Hyperchromasia Anisocytosis PT (10.0-12.5) sec INR (<1.2) APTT (22.0-30.0) sec Sodium 116 L* (137-145) mmol/L Potassium 3.8 (3.5-5.1) mmol/L Chloride 82 L (98-107) mmol/L Carbon Dioxide 24 (22-30) mmol/L Anion Gap 10 mmol/L BUN 21 H (9-20) mg/dL Creatinine 0.96 (0.66-1.25) mg/dL Est GFR (CKD-EPI)AfAm >90 (>60 ml/min/1.73 sqM) Est GFR (CKD-EPI)NonAf 85 (>60 ml/min/1.73 sqM) Glucose 27 L* (74-99) mg/dL POC Glucose (mg/dL) (70-110) mg/dL POC Glu [employer] Experience Coordinator ID Osmolality ([phone]) mosm/kg Calcium 8.2 L (8.4-10.2) mg/dL Total Bilirubin 0.3 (0.2-1.3) mg/dL AST 47 (17-59) U/L ALT 13 (4-49) U/L Alkaline Phosphatase 135 H (38-126) U/L Troponin I <0.012 (0.000-0.034) ng/mL Total Protein 5.6 L (6.3-8.2) g/dL Albumin 2.9 L (3.5-5.0) g/dL TSH 18.700 H (0.465-4.680) mIU/L Free T4 0.58 L (0.78-2.19) ng/dL Urine Color Light Yellow Urine Appearance Clear (Clear) Urine pH 7.0 (5.0-8.0) Ur Specific [place] 1.014 (1.001-1.035) Urine Protein Negative (Negative) Urine Glucose (UA) 3+ H (Negative) Urine Ketones 1+ H (Negative) Urine Blood Negative (Negative) Urine Nitrite Negative (Negative) Urine Bilirubin Negative (Negative) Urine Urobilinogen <2.0 (<2.0) mg/dL Ur Leukocyte Esterase Negative (Negative) Urine Osmolality (50-1400) mosm/kg Ur Random Creatinine mg/dL 08/16/23 08/16/23 08/16/23 Range/Units 14:06 14:36 15:15 WBC (3.8-10.6) k/uL RBC (4.30-5.90) m/uL Hgb (13.0-17.5) gm/dL Hct (39.0-53.0) % MCV (80.0-100.0) fL MCH (25.0-35.0) pg MCHC (31.0-37.0) g/dL RDW (11.5-15.5) % Plt Count (150-450) k/uL MPV Neutrophils % % Lymphocytes % % Monocytes % % Eosinophils % % Basophils % % Neutrophils # (1.3-7.7) k/uL Lymphocytes # (1.0-4.8) k/uL Monocytes # (0-1.0) k/uL Eosinophils # (0-0.7) k/uL Basophils # (0-0.2) k/uL Hyperchromasia Anisocytosis PT (10.0-12.5) sec INR (<1.2) APTT (22.0-30.0) sec Sodium (137-145) mmol/L Potassium (3.5-5.1) mmol/L Chloride (98-107) mmol/L Carbon Dioxide (22-30) mmol/L Anion Gap mmol/L BUN (9-20) mg/dL Creatinine (0.66-1.25) mg/dL Est GFR (CKD-EPI)AfAm (>60 ml/min/1.73 sqM) Est GFR (CKD-EPI)NonAf (>60 ml/min/1.73 sqM) Glucose (74-99) mg/dL POC Glucose (mg/dL) 128 H 79 (70-110) mg/dL POC Glu [employer] Experience Coordinator Robert [place] John Osmolality 244 L* (280-301) mosm/kg Calcium (8.4-10.2) mg/dL Total Bilirubin (0.2-1.3) mg/dL AST (17-59) U/L ALT (4-49) U/L Alkaline Phosphatase (38-126) U/L Troponin I (0.000-0.034) ng/mL Total Protein (6.3-8.2) g/dL Albumin (3.5-5.0) g/dL TSH (0.465-4.680) mIU/L Free T4 (0.78-2.19) ng/dL Urine Color Urine Appearance (Clear) Urine pH (5.0-8.0) Ur Specific [place] (1.001-1.035) Urine Protein (Negative) Urine Glucose (UA) (Negative) Urine Ketones (Negative) Urine Blood (Negative) Urine Nitrite (Negative) Urine Bilirubin (Negative) Urine Urobilinogen (<2.0) mg/dL Ur Leukocyte Esterase (Negative) Urine Osmolality (50-1400) mosm/kg Ur Random Creatinine mg/dL 08/16/23 08/16/23 Range/Units 15:56 15:56 WBC (3.8-10.6) k/uL RBC (4.30-5.90) m/uL Hgb (13.0-17.5) gm/dL Hct (39.0-53.0) % MCV (80.0-100.0) fL MCH (25.0-35.0) pg MCHC (31.0-37.0) g/dL RDW (11.5-15.5) % Plt Count (150-450) k/uL MPV Neutrophils % % Lymphocytes % % Monocytes % % Eosinophils % % Basophils % % Neutrophils # (1.3-7.7) k/uL Lymphocytes # (1.0-4.8) k/uL Monocytes # (0-1.0) k/uL Eosinophils # (0-0.7) k/uL Basophils # (0-0.2) k/uL Hyperchromasia Anisocytosis PT (10.0-12.5) sec INR (<1.2) APTT (22.0-30.0) sec Sodium (137-145) mmol/L Potassium (3.5-5.1) mmol/L Chloride (98-107) mmol/L Carbon Dioxide (22-30) mmol/L Anion Gap mmol/L BUN (9-20) mg/dL Creatinine (0.66-1.25) mg/dL Est GFR (CKD-EPI)AfAm (>60 ml/min/1.73 sqM) Est GFR (CKD-EPI)NonAf (>60 ml/min/1.73 sqM) Glucose (74-99) mg/dL POC Glucose (mg/dL) (70-110) mg/dL POC Glu Spa Experience Coordinator ID Osmolality ([phone]) mosm/kg Calcium (8.4-10.2) mg/dL Total Bilirubin (0.2-1.3) mg/dL AST (17-59) U/L ALT (4-49) U/L Alkaline Phosphatase (38-126) U/L Troponin I (0.000-0.034) ng/mL Total Protein (6.3-8.2) g/dL Albumin (3.5-5.0) g/dL TSH (0.465-4.680) mIU/L Free T4 (0.78-2.19) ng/dL Urine Color Urine Appearance (Clear) Urine pH (5.0-8.0) Ur Specific [place] (1.001-1.035) Urine Protein (Negative) Urine Glucose (UA) (Negative) Urine Ketones (Negative) Urine Blood (Negative) Urine Nitrite (Negative) Urine Bilirubin (Negative) Urine Urobilinogen (<2.0) mg/dL Ur Leukocyte Esterase (Negative) Urine Osmolality 430 (50-1400) mosm/kg Ur Random Creatinine 46.4 mg/dL Critical Care Time Critical Care Time: Yes Disposition Clinical Impression: Dehydration, Adenocarcinoma of lung, stage 4, Hypoglycemia, Hyponatremia, Encephalopathy acute Disposition: ADMITTED IP TO THIS [facility] Condition: Serious Is patient prescribed a controlled substance at d/c from ED?: No Time of Disposition: 16:01 Decision to Admit Reason: Admit from EC Decision Date: 08/16/23 Decision Time: 16:02
[2023-08-16] MEDS ORDERED: MIDODRINE 5 MG TAB PO STA (16:26)
[2023-08-16 16:34] LABS: Glucose,Whole Blood 71 mg/dL (70-110)
[2023-08-16 16:47] LABS: Appearance,Urine Clear (Clear); Bilirubin,Urine Negative (Negative); Blood,Urine Negative (Negative); Color,Urine Light Yellow; Glucose,Urine (UA) 3+ (Negative); Ketones,Urine 1+ (Negative); Leukocyte Esterase,Urine Negative (Negative); Nitrite,Urine Negative (Negative); Protein,Urine Negative (Negative); Specific Gravity,Urine 1.014 (1.001-1.035); Urobilinogen,Urine <2.0 mg/dL (<2.0)
[2023-08-16 16:56] LABS: T4, Free (Free Thyroxine) 0.58 ng/dL (0.78-2.19)
[2023-08-16 17:27] LABS: Glucose,Whole Blood 35 mg/dL (70-110)
[2023-08-16 17:50] LABS: Glucose,Whole Blood 88 mg/dL (70-110)
[2023-08-16 18:26] LABS: Glucose,Whole Blood 57 mg/dL (70-110)
[2023-08-16 19:02] LABS: Glucose,Whole Blood 108 mg/dL (70-110)
[2023-08-16] MEDS ORDERED: NON FORMULARY DRUG (Cefazolin 2 GM/20 ML Each) IVP SCH (19:15)
[2023-08-16 19:39] LABS: Glucose,Whole Blood 106 mg/dL (70-110)
[2023-08-16 20:35] LABS: African American GFR (CKD) >90 (>60 ml/min/1.73 sqM); Anion Gap 9 mmol/L; Blood Urea Nitrogen 18 mg/dL (9-20); Calcium 7.7 mg/dL (8.4-10.2); Carbon Dioxide 24 mmol/L (22-30); Chloride 82 mmol/L (98-107); Glucose 91 mg/dL (74-99); Non-African American GFR(CKD) >90 (>60 ml/min/1.73 sqM); Potassium 4.5 mmol/L (3.5-5.1)
[2023-08-16 20:42] LABS: Sodium 115 mmol/L (137-145)
[2023-08-16 20:44] LABS: Glucose,Whole Blood 41 mg/dL (70-110)
[2023-08-16] MEDS ORDERED: DEXTROSE 50% SYRINGE 50 ML IVP PRN (20:48)
[2023-08-16] MEDS: IPRATROPIUM-ALBUTEROL 3 ML NEB INHALATION SCH (20:51)
[2023-08-16] MEDS: BUDESONIDE 0.5 MG/2 ML NEBU INHALATION SCH (20:51)
[2023-08-16 21:05] LABS: Glucose,Whole Blood 252 mg/dL (70-110)
[2023-08-16] MEDS ORDERED: DEXTROSE 10% IN WATER 1,000 ML with SODIUM CHLORIDE 4MEQ/ML VIAL 153.8 MEQ IV SCH (21:15)
[2023-08-16] MEDS ORDERED: ACYCLOVIR IV SCH (22:00)
[2023-08-16] MEDS: ATORVASTATIN 80 MG TAB PO SCH (22:21)
[2023-08-16] MEDS: droNABinol 2.5 MG CAP PO SCH (22:22)
[2023-08-16] MEDS: buPROPion 75 MG TAB PO SCH (22:22)
[2023-08-16] MEDS: EZETIMIBE 10 MG TAB PO SCH (22:24)
[2023-08-16] MEDS: CARBAMIDE PEROXIDE 6.5% DROPS 15 ML BTL BOTH EARS SCH (22:39)
[2023-08-16 22:48] LABS: Glucose,Whole Blood 324 mg/dL (70-110)
[2023-08-16] MEDS ORDERED: SODIUM CHLORIDE 3%(HYPERTONIC) 500 ML IV ONE (23:30)
[2023-08-16] MEDS ORDERED: LEVOTHYROXINE 125 MCG TAB PO ONE (23:33)
[2023-08-16] MEDS: GABAPENTIN 100 MG CAP PO SCH (23:54)
[2023-08-17 00:10] LABS: African American GFR (CKD) >90 (>60 ml/min/1.73 sqM); Anion Gap 11 mmol/L; Blood Urea Nitrogen 17 mg/dL (9-20); Calcium 7.8 mg/dL (8.4-10.2); Carbon Dioxide 19 mmol/L (22-30); Chloride 82 mmol/L (98-107); Glucose 259 mg/dL (74-99); Non-African American GFR(CKD) >90 (>60 ml/min/1.73 sqM)
[2023-08-17 00:38] LABS: Sodium 112 mmol/L (137-145)
[2023-08-17] MEDS: ACYCLOVIR SODIUM 650 MG in SODIUM CHLORIDE 0.9% 100 ML IVPB SCH ×2 (01:00→09:23)
[2023-08-17] MEDS: HYDROCORTISONE SUCCINATE 100 MG/2 ML VIAL IV SCH ×3 (01:00→16:58)
[2023-08-17] MEDS: IPRATROPIUM-ALBUTEROL 3 ML NEB INHALATION SCH ×4 (01:43→21:09)
[2023-08-17 01:51] LABS: Glucose,Whole Blood 362 mg/dL (70-110)
[2023-08-17] MEDS ORDERED: MORPHINE SULFATE 2 MG/ML SYRINGE IVP STA (02:19)
[2023-08-17] MEDS: ACETAMINOPHEN TAB 325 MG TAB PO PRN (02:31)
[2023-08-17] MEDS ORDERED: INSULIN ASPART (NovoLOG) 100 UNIT/ML VIAL SQ ONE (04:06)
[2023-08-17 04:07] LABS: Glucose,Whole Blood 387 mg/dL (70-110)
--- NOTE | 2023-08-17 04:13 | P.CNPUL ---
History of Present Illness Consult date: 08/17/23 Requesting physician: Nilda Xiao Reason for consult: other (ICU management; hyponatremia) Chief complaint: altered mental status History of present illness: I am seeing this patient in new consultation today 08/17/2023 in the intensive care unit after he presented from [facility] with altered mental status. Patient is a 63-year-old male with past medical history significant for metastatic lung cancer, pulmonary fibrosis, COPD, type 1 diabetes mellitus, hypertension, hyperlipidemia, pulmonary embolism, among other things. Patient does follow with his oncologist Dr. Heredia for management of his metastatic lung cancer, and had been receiving a combination of Carbolplatin/Alimta/Keytuda, but is on hold in light of his recent soft tissue abdominal well cellulitis/abscess. This reportedly developed from an old insulin pump subcutaneous site. Apparently, the patient was recently hospitalized at [facility] for abdominal wall cellulitis and hyponatremia. He also was found to have shingles, and started on antivirals. Patient was then discharged to [facility]. At the outside facility, he was found to be confused. It was felt this correlated with his Swan administration, however, he was found to have abnormal blood glucose readings. on arrival to the emergency room, a nonenhanced brain CT did not show any acute intracranial abnormality. It did show generalized atrophy and remote infarct/consult of the right cerebral hemisphere. Chest x-ray on arrival showed chronic fibrotic changeswithout any acute cardiopulmonary process. Patient is currently lying in bed, on 2 L/m nasal cannula, in no acute distress. He is still confused and having visual hallucinations. His sodium was found to be severely low at 115, and he was started on a hypertonic saline infusion which is currently running at 30 MLS per hour. He was also hypoglycemic in the emergency room, and started on a D10W. This is currently on hold, because the patient is now hyperglycemic.CBC on arrival showed a WBC count of 12.4, hemoglobin 8.6, hematocrit 23.7, platelets 205. Most recent BMP from around midnight showed a sodium 112, potassium 5, chloride 82, serum bicarb 19, BUN 17, creatinine 0.77, glucose 259. Serum osmolality was 244. Urine osmolality was 430. Urine sodium 111. hyponatremia is being managed by nephrology. TSH was elevated at 18.7 and free T4 0.58. Patient had reportedly been refusing his medications. UA not concerning for UTI. No documented fevers. Restarted on Cefazolin and Acyclovir. Patient is admitted to the intensive care unit. Review of Systems REVIEW OF SYSTEMS: CONSTITUTIONAL: Denies any recent significant weight loss or weight gain. EYES: Denies change in vision. EARS, NOSE, MOUTH, THROAT: Denies headaches, denies sore throat. CARDIOVASCULAR: Denies chest pain, palpitations or syncopal episodes. RESPIRATORY: Denies shortness of breath, cough, congestion or hemoptysis. GASTROINTESTINAL: Denies change in appetite, abdominal pain, nausea and vomiting, or diarrhea GENITOURINARY: Denies hematuria, denies infections. MUSKULOSKELETAL: Denies pain, denies swelling. INTEGUMENTARY: Denies rash, denies eczema. NEUROLOGICAL: Denies recent memory loss, no recent seizure activity. PSYCHIATRIC: Denies anxiety, denies depression. HEMATOLOGIC/LYMPHATIC: Denies anemia, denies enlarged lymph node Past Medical History Past Medical History: Coronary Artery Disease (CAD), Cancer, Heart Failure, COPD, Diabetes Mellitus, GI Bleed, Hyperlipidemia, Hypertension, Osteoarthritis (OA), Pneumonia, Pulmonary Embolus (PE), Renal Disease, Respiratory Disorder, Vascular Disorder Additional Past Medical History / Comment(s): hx. 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 History of Any Multi-Drug Resistant Organisms: MRSA Date of last positivie culture/infection: 03/15/17 MDRO Source:: genital Past Surgical History: Back Surgery, Cholecystectomy, Heart Catheterization, Heart Catheterization With Stent Additional Past Surgical History / Comment(s): EGD's, 07/26/15 IVC filter, BACK STIMULATORS x 2 -cervical and lumbar,FEMORAL BYPASS RT LEG X3, metal chips removed from bilateral eyes Past Anesthesia/Blood Transfusion Reactions: No Reported Reaction Additional Past Anesthesia/Blood Transfusion Reaction / Comment(s): Pt has received blood transfusions without reaction. Date of Last Stent Placement:: Past Psychological History: Anxiety, Depression Smoking Status: Former smoker Past Alcohol Use History: None Reported Past Drug Use History: None Reported - Past Family History Father History Unknown: Yes Family Medical History: Myocardial Infarction ([place]) Additional Family Medical History / Comment(s): due to heart attack Mother History Unknown: Yes Family Medical History: Cancer Additional Family Medical History / Comment(s): LUNG CANCER Medications and Allergies Home Medications Medication Instructions Recorded Confirmed Type Aspirin EC [Ecotrin Low Dose] 81 mg PO DAILY #30 tab 03/29/21 08/16/23 Rx Atorvastatin [Lipitor] 80 mg PO HS #90 tab 03/29/21 08/16/23 Rx Metoprolol Succinate (ER) [Toprol 25 mg PO DAILY 10/05/22 08/16/23 History XL] Clopidogrel [Plavix] 75 mg PO DAILY #90 tab 10/07/22 08/16/23 Rx Multivitamins, Thera [Multivitamin 1 tab PO DAILY 12/16/22 08/16/23 History (formulary)] Cholecalciferol [Vitamin D3 (25 50 mcg PO DAILY 07/06/23 08/16/23 History Mcg = 1000 Iu)] Ondansetron [Zofran] 4 mg PO Q4H PRN 07/06/23 08/16/23 History 0.9 % Sodium Chloride [Sodium 10 ml IV Q8H 08/16/23 08/16/23 History Chloride Flush] Acyclovir Sodium Intravenous 635 mg IV TID 08/16/23 08/16/23 History Solution Budesonide [Pulmicort] 0.5 mg INHALATION RT-BID 08/16/23 08/16/23 History Carbamide Peroxide [Debrox Otic] 5 drops BOTH EARS BID 08/16/23 08/16/23 History Ezetimibe [Zetia] 10 mg PO HS 08/16/23 08/16/23 History Gabapentin [Neurontin] 100 mg PO TID 08/16/23 08/16/23 History HYDROcodone/APAP 5-325MG [Swan 1 tab PO Q6HR PRN 08/16/23 08/16/23 History 5-325] Insulin Lispro [humaLOG Kwikpen] 10 unit SQ AC-TID 08/16/23 08/16/23 History Insulin Lispro [humaLOG Kwikpen] See Protocol SQ ACHS 08/16/23 08/16/23 History Ipratropium-Albuterol Nebulize 3 ml INHALATION RT-Q6H 08/16/23 08/16/23 History [Duoneb 0.5 mg-3 mg/3 ml Soln] L.acidoph,Paracasei, B.lactis 1 cap PO BID 08/16/23 08/16/23 History [Probiotic] Levothyroxine Sodium [Synthroid] 100 mcg PO DAILY 08/16/23 08/16/23 History Lidocaine 5% Patch [Lidoderm] 1 patch TOPICAL DAILY 08/16/23 08/16/23 History Magnesium Oxide [Magox 400] 400 mg PO DAILY 08/16/23 08/16/23 History Midodrine [ProAmatine] 5 mg PO AC-TID 08/16/23 08/16/23 History Pantoprazole Sodium [Protonix] 40 mg PO DAILY 08/16/23 08/16/23 History buPROPion [Wellbutrin] 150 mg PO BID 08/16/23 08/16/23 History ceFAZolin [Kefzol] 2 gm IVP Q8HR 08/16/23 08/16/23 History droNABinol [Marinol] 2.5 mg PO BID 08/16/23 08/16/23 History predniSONE 5 mg PO DAILY 08/16/23 08/16/23 History Allergies Allergy/AdvReac Type Severity Reaction Status Date / Time No Known Allergies Allergy Verified 08/16/23 16:49 Physical Exam Vitals: Vital Signs Pulse Resp BP Pulse Ox 08/17/23 01:50 92 08/17/23 01:40 92 08/16/23 22:38 93 18 114/67 98 08/16/23 22:00 76 18 124/50 98 08/16/23 21:06 81 08/16/23 21:00 84 18 108/84 97 08/16/23 20:51 80 08/16/23 20:00 79 18 109/66 98 08/16/23 18:29 75 18 118/74 96 08/16/23 17:29 76 18 91/58 98 08/16/23 14:51 89 18 117/76 98 08/16/23 13:52 86 24 88/61 97 Intake and Output 08/16/23 08/16/23 08/17/23 14:59 22:59 06:59 Output Total 1100 Balance -1100 Output: Urine 1100 Other: Weight 63.503 kg GENERAL EXAM: Alert but disoriented, 63-year-old white male, intermittently crying out in pain. HEAD: Normocephalic and atraumatic EYES: Normal reaction of pupils, equal size. NOSE: Clear with pink turbinates. THROAT: No erythema or exudates. NECK: No masses, no JVD. CHEST: No chest wall deformity. There is a right chest Mediport, accessed LUNGS: Equal air entry with inspiratory crackles heard at the right lower base. No wheezes, rhonchi, or focal dullness. on 2 L/m nasal cannula. No conversational dyspnea or accessory muscle use.. CVS: S1 and S2 normal with no audible murmur, regular rhythm. No extra heart sounds ABDOMEN: No hepatosplenomegaly, active bowel sounds, no guarding or rigidity. SPINE: No scoliosis or deformity SKIN: right upper arm open ulcerations CENTRAL NERVOUS SYSTEM: No focal deficits, tone is normal in all 4 extremities. EXTREMITIES: There is no peripheral edema, clubbing, or cyanosis. Peripheral pulses are intact. Results - Laboratory Findings CBC and BMP: 08/16/23 14:06 08/16/23 23:20 PT/INR, D-dimer PT 11.1 sec (10.0-12.5) 08/16/23 14:06 INR 1.0 (<1.2) 08/16/23 14:06 Abnormal lab findings: Abnormal Labs 08/16/23 08/16/23 08/16/23 14:01 14:06 14:06 WBC 12.4 H RBC 2.62 L Hgb 8.6 L Hct 23.7 L RDW 19.6 H Neutrophils # 10.8 H Lymphocytes # 0.8 L Sodium 116 L* Chloride 82 L Carbon Dioxide BUN 21 H Glucose 27 L* POC Glucose (mg/dL) 36 L Osmolality Calcium 8.2 L Alkaline Phosphatase 135 H Total Protein 5.6 L Albumin 2.9 L TSH 18.700 H Free T4 0.58 L Urine Glucose (UA) Urine Ketones 08/16/23 08/16/23 08/16/23 14:06 14:06 14:36 WBC RBC Hgb Hct RDW Neutrophils # Lymphocytes # Sodium Chloride Carbon Dioxide BUN Glucose POC Glucose (mg/dL) 128 H Osmolality 244 L* Calcium Alkaline Phosphatase Total Protein Albumin TSH Free T4 Urine Glucose (UA) 3+ H Urine Ketones 1+ H 08/16/23 08/16/23 08/16/23 17:25 18:19 20:10 WBC RBC Hgb Hct RDW Neutrophils # Lymphocytes # Sodium 115 L* Chloride 82 L Carbon Dioxide BUN Glucose POC Glucose (mg/dL) 35 L 57 L Osmolality Calcium 7.7 L Alkaline Phosphatase Total Protein Albumin TSH Free T4 Urine Glucose (UA) Urine Ketones 08/16/23 08/16/23 08/16/23 20:42 21:03 22:46 WBC RBC Hgb Hct RDW Neutrophils # Lymphocytes # Sodium Chloride Carbon Dioxide BUN Glucose POC Glucose (mg/dL) 41 L 252 H 324 H Osmolality Calcium Alkaline Phosphatase Total Protein Albumin TSH Free T4 Urine Glucose (UA) Urine Ketones 08/16/23 08/17/23 23:20 01:47 WBC RBC Hgb Hct RDW Neutrophils # Lymphocytes # Sodium 112 L* Chloride 82 L Carbon Dioxide 19 L BUN Glucose 259 H POC Glucose (mg/dL) 362 H Osmolality Calcium 7.8 L Alkaline Phosphatase Total Protein Albumin TSH Free T4 Urine Glucose (UA) Urine Ketones - Diagnostic Findings Chest x-ray: image reviewed Assessment and Plan Assessment: Severe hyponatremia, suspect SIADH. currently on hypertonic saline. Hypoglycemia, improved Metabolic acidosis, non-anion gap Hypothyroidism, patient was reportedly refusing medications, TSH was 18.7, Free T4 0.58 Hyponatremic encephalopathy Normocytic normochromic anemia, appears chronic Herpes zoster, currently on antivirals History of abdominal wall cellulitis Leukocytosis Metastatic lung cancer, treatment reportedly on hold Chronic Pulmonary fibrosis Chronic obstructive pulmonary disease, stable Chronic hypoxemic respiratory failure, normally maintained pain on 2-3 L/m nasal cannula on an outpatient basis History of pulmonary embolism, not anticoagulated, with IVC filter Diabetes mellitus, insulin-dependent Hyperlipidemia Remote CVA, as reported on brain CT Coronary artery disease, with previous coronary stents History of pancreatitis Chronic pain Peripheral neuropathy History of migraines plan: Patient's medications, labs, chest x-ray reviewed Continue supplemental oxygen Hyponatremia is being managed by nephrology, currently on hypertonic saline infusing at 30 MLS per hour Sodium rechecked every 4 hours per nephrology Neuro checks per protocol Accu-Cheks every hour, hold D10W for hyperglycemia Home medications have been resumed, including Synthroid Empiric cefazolin has been restarted Acyclovir has also been restarted Heparin for DVT prophylaxis and Protonix for GI prophylaxis Patient will be monitored in the intensive care unit I have personally seen and examined the patient, performed the documentation and the assessment and plan as written. Number of minutes spent on the visit:20 Time with Patient: Greater than 30
[2023-08-17 05:05] LABS: Anisocytosis Moderate; Basophils % (A) 0 %; Eosinophils # (A) 0.1 k/uL (0-0.7); Eosinophils % (A) 1 %; HCT 23.9 % (39.0-53.0); HGB 8.5 gm/dL (13.0-17.5); Lymphocytes # (A) 0.5 k/uL (1.0-4.8); Lymphocytes % (A) 3 %; MCHC 35.4 g/dL (31.0-37.0); MCV 93.2 fL (80.0-100.0); Macrocytosis Slight; Monocytes # (A) 0.5 k/uL (0-1.0); Monocytes % (A) 3 %; Neutrophils % (A) 92 %; Platelet Count 191 k/uL (150-450); Poikilocytosis Slight; RBC 2.57 m/uL (4.30-5.90); RDW 20.2 % (11.5-15.5); WBC 15.3 k/uL (3.8-10.6)
[2023-08-17 05:16] LABS: African American GFR (CKD) >90 (>60 ml/min/1.73 sqM); Anion Gap 15 mmol/L; Blood Urea Nitrogen 17 mg/dL (9-20); Calcium 7.6 mg/dL (8.4-10.2); Carbon Dioxide 15 mmol/L (22-30); Chloride 83 mmol/L (98-107); Glucose 339 mg/dL (74-99); Non-African American GFR(CKD) >90 (>60 ml/min/1.73 sqM); Potassium 5.3 mmol/L (3.5-5.1)
[2023-08-17 05:19] LABS: Sodium 113 mmol/L (137-145)
[2023-08-17 06:29] LABS: Glucose,Whole Blood 375 mg/dL (70-110)
[2023-08-17] MEDS ORDERED: LEVOTHYROXINE 100 MCG TAB PO SCH (06:30)
[2023-08-17] MEDS: PANTOPRAZOLE 40 MG TABLET PO SCH (06:44)
[2023-08-17] MEDS: LEVOTHYROXINE 125 MCG TAB PO SCH (06:44)
[2023-08-17] MEDS: INSULIN ASPART (NovoLOG) 100 UNIT/ML VIAL SQ SCH ×4 (06:45→20:31)
[2023-08-17] MEDS: HYDROcodone/APAP 5-325MG 1 EACH TAB PO PRN (06:58)
[2023-08-17] MEDS ORDERED: MIDODRINE 5 MG TAB PO SCH (07:30)
[2023-08-17] MEDS: BUDESONIDE 0.5 MG/2 ML NEBU INHALATION SCH ×2 (07:56→21:08)
[2023-08-17] MEDS ORDERED: predniSONE 5 MG TAB PO SCH (09:00)
[2023-08-17] MEDS: buPROPion 75 MG TAB PO SCH ×2 (09:22→20:31)
[2023-08-17] MEDS: HEPARIN SODIUM,PORCINE 5,000 UNIT/ML 1 ML VIAL SQ SCH ×2 (09:22→20:31)
[2023-08-17] MEDS: CLOPIDOGREL 75 MG TAB PO SCH (09:22)
[2023-08-17] MEDS: MAGNESIUM OXIDE 400 MG TAB PO SCH (09:24)
[2023-08-17] MEDS: GABAPENTIN 100 MG CAP PO SCH ×3 (09:24→20:39)
[2023-08-17] MEDS: ASPIRIN 81 MG PO SCH (09:24)
[2023-08-17] MEDS: CARBAMIDE PEROXIDE 6.5% DROPS 15 ML BTL BOTH EARS SCH ×2 (09:25→20:32)
[2023-08-17] MEDS: droNABinol 2.5 MG CAP PO SCH ×2 (09:26→20:31)
[2023-08-17] MEDS ORDERED: SODIUM BICARB 8.4% 50 ML SYR (1 MEQ/ML) IV STA ×2 (10:56→11:01)
[2023-08-17] MEDS ORDERED: SODIUM CHLORIDE 0.9% 500 ML 500 ML IV SCH (11:00)
[2023-08-17] MEDS: NOREPINEPHRINE 4 MG in SODIUM CHLORIDE 0.9% 250 ML IV SCH (11:02)
--- NOTE | 2023-08-17 11:46 | P.NPCON ---
History of Present Illness - Reason for Consult hyponatremia - History of Present Illness Reason for consultation: Hyponatremia History of present illness: Patient is a 63-year-old male seen in consultation for hyponatremia. Patient's sodium level was 116 on admission and dropped to 112 and is up to 117 this morning. Patient's currently receiving 3% saline. Patient was recently admitted at [facility] with hyponatremia and was given sodium chloride tabs that admission. Sodium levels had improved upon discharge to [facility]. Patient does have history of metastatic lung cancer. Chemotherapy is currently on hold due to recent cellulitis. Patient was brought to the hospital due to altered mental status. He is currently resting in bed. Blood pressures on the lower side. Levophed will be initiated. He does not have a Costa catheter. Has been voiding and is incontinent. GFR is at baseline. I don't see any nonsteroidals and his home medication list. Patient does have history of diabetes. TSH noted to be elevated at 18.7. He is on Synthroid. Also receiving Solu-Cortef. Patient's currently resting in bed. Oral intake is poor. Patient is a poor historian. Vital signs are stable. General: No acute distress. HEENT: Head exam is unremarkable. LUNGS: No audible rhonchi or wheezes. HEART: Rate and Rhythm are regular. ABDOMEN: Nontender. EXTREMITITES: No edema. Past Medical History Past Medical History: Coronary Artery Disease (CAD), Cancer, Heart Failure, COPD, Diabetes Mellitus, GI Bleed, Hyperlipidemia, Hypertension, Osteoarthritis (OA), Pneumonia, Pulmonary Embolus (PE), Renal Disease, Respiratory Disorder, Vascular Disorder Additional Past Medical History / Comment(s): hx. 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 History of Any Multi-Drug Resistant Organisms: MRSA Date of last positivie culture/infection: 03/15/17 MDRO Source:: genital Past Surgical History: Back Surgery, Cholecystectomy, Heart Catheterization, Heart Catheterization With Stent Additional Past Surgical History / Comment(s): EGD's, 07/26/15 IVC filter, BACK STIMULATORS x 2 -cervical and lumbar,FEMORAL BYPASS RT LEG X3, metal chips removed from bilateral eyes Past Anesthesia/Blood Transfusion Reactions: No Reported Reaction Additional Past Anesthesia/Blood Transfusion Reaction / Comment(s): Pt has received blood transfusions without reaction. Date of Last Stent Placement:: 1999,2021 Past Psychological History: Anxiety, Depression Smoking Status: Former smoker Past Alcohol Use History: None Reported Past Drug Use History: None Reported - Past Family History Father History Unknown: Yes Family Medical History: Myocardial Infarction ([place]) Additional Family Medical History / Comment(s): due to heart attack Mother History Unknown: Yes Family Medical History: Cancer Additional Family Medical History / Comment(s): LUNG CANCER Medications and Allergies Home Medications Medication Instructions Recorded Confirmed Type Aspirin EC [Ecotrin Low Dose] 81 mg PO DAILY #30 tab 03/29/21 08/16/23 Rx Atorvastatin [Lipitor] 80 mg PO HS #90 tab 03/29/21 08/16/23 Rx Metoprolol Succinate (ER) [Toprol 25 mg PO DAILY 10/05/22 08/16/23 History XL] Clopidogrel [Plavix] 75 mg PO DAILY #90 tab 10/07/22 08/16/23 Rx Multivitamins, Thera [Multivitamin 1 tab PO DAILY 12/16/22 08/16/23 History (formulary)] Cholecalciferol [Vitamin D3 (25 50 mcg PO DAILY 07/06/23 08/16/23 History Mcg = 1000 Iu)] Ondansetron [Zofran] 4 mg PO Q4H PRN 07/06/23 08/16/23 History 0.9 % Sodium Chloride [Sodium 10 ml IV Q8H 08/16/23 08/16/23 History Chloride Flush] Acyclovir Sodium Intravenous 635 mg IV TID 08/16/23 08/16/23 History Solution Budesonide [Pulmicort] 0.5 mg INHALATION RT-BID 08/16/23 08/16/23 History Carbamide Peroxide [Debrox Otic] 5 drops BOTH EARS BID 08/16/23 08/16/23 History Ezetimibe [Zetia] 10 mg PO HS 08/16/23 08/16/23 History Gabapentin [Neurontin] 100 mg PO TID 08/16/23 08/16/23 History HYDROcodone/APAP 5-325MG [[place] 1 tab PO Q6HR PRN 08/16/23 08/16/23 History 5-325] Insulin Lispro [humaLOG Kwikpen] 10 unit SQ AC-TID 08/16/23 08/16/23 History Insulin Lispro [humaLOG Kwikpen] See Protocol SQ ACHS 08/16/23 08/16/23 History Ipratropium-Albuterol Nebulize 3 ml INHALATION RT-Q6H 08/16/23 08/16/23 History [Duoneb 0.5 mg-3 mg/3 ml Soln] L.acidoph,Paracasei, B.lactis 1 cap PO BID 08/16/23 08/16/23 History [Probiotic] Levothyroxine Sodium [Synthroid] 100 mcg PO DAILY 08/16/23 08/16/23 History Lidocaine 5% Patch [Lidoderm] 1 patch TOPICAL DAILY 08/16/23 08/16/23 History Magnesium Oxide [Magox 400] 400 mg PO DAILY 08/16/23 08/16/23 History Midodrine [ProAmatine] 5 mg PO AC-TID 08/16/23 08/16/23 History Pantoprazole Sodium [Protonix] 40 mg PO DAILY 08/16/23 08/16/23 History buPROPion [Wellbutrin] 150 mg PO BID 08/16/23 08/16/23 History ceFAZolin [Kefzol] 2 gm IVP Q8HR 08/16/23 08/16/23 History droNABinol [Marinol] 2.5 mg PO BID 08/16/23 08/16/23 History predniSONE 5 mg PO DAILY 08/16/23 08/16/23 History Allergies Allergy/AdvReac Type Severity Reaction Status Date / Time No Known Allergies Allergy Verified 08/16/23 16:49 Physical Exam Vitals: Vital Signs Temp Pulse Resp BP Pulse Ox 08/17/23 11:00 107 H 14 90/53 98 08/17/23 10:30 108 H 20 83/53 98 08/17/23 10:00 105 H 12 104/58 92 L 08/17/23 09:30 101 H 21 84/45 98 08/17/23 09:00 102 H 21 67/45 08/17/23 08:30 102 H 23 111/59 08/17/23 08:26 100 08/17/23 08:01 100 97 08/17/23 08:00 98 F 100 18 101/61 98 08/17/23 07:30 98 16 94/52 08/17/23 07:00 98 23 106/64 08/17/23 06:30 101 H 27 H 98/52 08/17/23 06:00 92 24 99/54 98 08/17/23 05:30 90 23 96/51 97 08/17/23 05:00 88 26 H 103/55 99 08/17/23 04:30 92 23 106/64 97 08/17/23 04:00 97.7 F 96 17 114/52 96 08/17/23 03:30 92 20 87/54 100 08/17/23 03:00 93 0 L 96/44 92 L 08/17/23 02:30 99 25 H 98/48 97 08/17/23 02:00 98 20 101/54 98 08/17/23 01:50 92 08/17/23 01:40 92 08/17/23 01:30 90 17 110/64 08/17/23 01:00 200 H 46 H 08/17/23 00:30 83 3 L 115/75 99 08/17/23 00:00 97.9 F 86 18 115/75 98 08/16/23 23:30 85 13 123/65 97 08/16/23 23:00 85 21 123/65 97 08/16/23 22:44 87 29 H 08/16/23 22:38 93 18 114/67 98 08/16/23 22:00 76 18 124/50 98 08/16/23 21:06 81 08/16/23 21:00 84 18 108/84 97 08/16/23 20:51 80 08/16/23 20:00 79 18 109/66 98 08/16/23 18:29 75 18 118/74 96 08/16/23 17:29 76 18 91/58 98 08/16/23 14:51 89 18 117/76 98 08/16/23 13:52 86 24 88/61 97 Intake and Output 08/16/23 08/17/23 08/17/23 22:59 06:59 14:59 Intake Total 530 360 Output Total 1100 Balance -1100 530 360 Intake: IV 180 120 Sodium Chloride 3%( 180 120 Hypertonic) 500 ml @ 30 mls/hr IV .[id number] Rx #:[id number] Intake, IV Titration 120 Amount Acyclovir Sodium 650 mg 100 In Sodium Chloride 0.9% 100 ml @ 100 mls/hr IVPB Q8HR [facility] Rx#:[id number] Sodium Chloride 0.9% 500 20 ml 500 ml @ 20 mls/hr IV .Q24H [facility] Rx#:[id number] Oral 350 120 Output: Urine 1100 Other: # Voids 1 Weight 63.503 kg 69.8 kg Results - Lab Results Most recent lab results Calcium 7.6 mg/dL (8.4-10.2) L 08/17/23 04:05 08/17/23 04:46 08/17/23 07:47 Assessment and Plan Plan: Assessment: 1. 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 Sodium level 116 on admission and dropped to 112 - 117 this morning. Urine sodium 111 and urine osmolality 430. Currently on 3% saline. 2. Metabolic acidosis secondary to ketoacidosis. 3. Hypothyroidism maintained on Synthroid. 4. Metastatic lung cancer. 5. Diabetes mellitus. 6. History of coronary artery disease. Plan: Stop 3% saline. Increase dose of midodrine. Blood sugar control. Encouraged oral intake. Cortisol level will not be accurate as patient is already on Solu-Cortef. Repeat sodium level at noon. Thank you for the consultation. I will continue to follow the patient with you during his hospital stay.
[2023-08-17 12:16] LABS: Glucose,Whole Blood 234 mg/dL (70-110)
[2023-08-17] MEDS: MIDODRINE 5 MG TAB PO SCH ×2 (13:05→16:58)
[2023-08-17 17:02] LABS: Glucose,Whole Blood 303 mg/dL (70-110)
--- NOTE | 2023-08-17 18:58 | P.CONS ---
History of Present Illness - Reason for Consult Consult date: 08/17/23 Oncology care Requesting physician: Robert Acevedo - Chief Complaint Hypoglycemia, hyponatremia - History of Present Illness This is consult from 07/21 at [facility] (less then 30 days ago) Neptali Chilel 63-year-old male patient Dr. Heredia referred initially in 2011 for o ligoclonal banding on SPEP, no paraproteinemia on further workup. He was seen again in consult 07/17, hypotensive shock secondary to GI bleeding, he was on anticoagulation because of a PE, on Xarelto, required reversal with Kcentra. EGD showed ulcers without active bleeding, IVC was placed, received IV iron and sent to [facility]. Seen again in 10/2015 for pneumonia. Repeat EGD done September 2015 no abnormalities, resumed on Xarelto, increase in liver enzymes in 2015, Xarelto discontinued November 2016, switched to baby aspirin. 10/23 patient had a NSTEMI, PTCA with stent placement. Patient was seen in the hospital 01/22, complaints of headache, and nausea and vomiting. CT head without contrast revealed a large posterior fossa mass in the right cerebellar hemisphere consistent with an intra-axial tumor causing mass effect on the effacement of the fourth ventricle and some obstructive mild hydrocephalus. CT CAP with contrast showed extensive pulmonary emphysema with opacity in the right upper lobe adjacent to the major fissure. He was transferred to [facility] in [place], craniotomy with resection of the brain mass, pathology consistent with adenocarcinoma of pulmonary origin. Discharged 02/08/23. Staging PET showed probable primary in the right posterior midlung, uptake right supraclavicular, mediastinal and subcarinal nodes, bilateral adrenal glands and left ribs. NGS revealed PI K3 mutation, TMB high at 11, PDL 1 was less than 1%. He had radiation to the tumor cavity completed 03/18/23. He started carbo Alimta Q treated, PET restaging after 3 cycles and by radiation oncology to target lesions for consolidative radiation. PET scan 06/12/23 showed a mixed response with improvement in the primary site, questionable progression in osseous structures in the right neck node. Questionable if this was true progression versus pseudo-progression because of immunotherapy. Patient's last treatment was 06/15/23. He was hospitalized at [facility] in late June or abdominal wall abscess from the insulin device, nausea and vomiting delayed discharge. CT AP showed stool burden patient was given medications and had multiple bowel movements. Patient states nausea and vomiting persisted though only small amounts of emesis once in a while, patient was eating and drinking. Patient then came to [facility] 07/21 with complaints of almost falling, not able to walk much, progressive weakness, wobbly and dizzy. Still reported intermittent vomiting, no pattern, he reported having bowel movements, trouble maintaining blood sugar levels. He was in the hospital there until 08/13, was seen by Endocrinology, had multiple medication changes. He had increase in dose of thyroid medication, just before admission to the hospital. He was discharged to [facility] 3-4 days ago and now he is back in the hospital with hyponatremia, hyperglycemia with rebound severe hypoglycemia. Review of Systems ROS unobtainable: due to mental status Past Medical History Past Medical History: Coronary Artery Disease (CAD), Cancer, Heart Failure, COPD, Diabetes Mellitus, GI Bleed, Hyperlipidemia, Hypertension, Osteoarthritis (OA), Pneumonia, Pulmonary Embolus (PE), Renal Disease, Respiratory Disorder, Vascular Disorder Additional Past Medical History / Comment(s): hx. 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 History of Any Multi-Drug Resistant Organisms: MRSA Year Discovered:: 03/15/17 MDRO Source:: genital Past Surgical History: Back Surgery, Cholecystectomy, Heart Catheterization, Heart Catheterization With Stent Additional Past Surgical History / Comment(s): EGD's, 07/26/15 IVC filter, BACK STIMULATORS x 2 -cervical and lumbar,FEMORAL BYPASS RT LEG X3, metal chips removed from bilateral eyes Past Anesthesia/Blood Transfusion Reactions: No Reported Reaction Additional Past Anesthesia/Blood Transfusion Reaction / Comm: Pt has received blood transfusions without reaction. Date of Last Stent Placement:: Past Psychological History: Anxiety, Depression Smoking Status: Former smoker Past Alcohol Use History: None Reported Past Drug Use History: None Reported - Past Family History Father History Unknown: Yes Family Medical History: Myocardial Infarction ([place]) Additional Family Medical History / Comment(s): due to heart attack Mother History Unknown: Yes Family Medical History: Cancer Additional Family Medical History / Comment(s): LUNG CANCER Medications and Allergies Home Medications Medication Instructions Recorded Confirmed Type Aspirin EC [Ecotrin Low Dose] 81 mg PO DAILY #30 tab 03/29/21 08/16/23 Rx Atorvastatin [Lipitor] 80 mg PO HS #90 tab 03/29/21 08/16/23 Rx Metoprolol Succinate (ER) [Toprol 25 mg PO DAILY 10/05/22 08/16/23 History XL] Clopidogrel [Plavix] 75 mg PO DAILY #90 tab 10/07/22 08/16/23 Rx Multivitamins, Thera [Multivitamin 1 tab PO DAILY 12/16/22 08/16/23 History (formulary)] Cholecalciferol [Vitamin D3 (25 50 mcg PO DAILY 07/06/23 08/16/23 History Mcg = 1000 Iu)] Ondansetron [Zofran] 4 mg PO Q4H PRN 07/06/23 08/16/23 History 0.9 % Sodium Chloride [Sodium 10 ml IV Q8H 08/16/23 08/16/23 History Chloride Flush] Acyclovir Sodium Intravenous 635 mg IV TID 08/16/23 08/16/23 History Solution Budesonide [Pulmicort] 0.5 mg INHALATION RT-BID 08/16/23 08/16/23 History Carbamide Peroxide [Debrox Otic] 5 drops BOTH EARS BID 08/16/23 08/16/23 History Ezetimibe [Zetia] 10 mg PO HS 08/16/23 08/16/23 History Gabapentin [Neurontin] 100 mg PO TID 08/16/23 08/16/23 History HYDROcodone/APAP 5-325MG [Raymond 1 tab PO Q6HR PRN 08/16/23 08/16/23 History 5-325] Insulin Lispro [humaLOG Kwikpen] 10 unit SQ AC-TID 08/16/23 08/16/23 History Insulin Lispro [humaLOG Kwikpen] See Protocol SQ ACHS 08/16/23 08/16/23 History Ipratropium-Albuterol Nebulize 3 ml INHALATION RT-Q6H 08/16/23 08/16/23 History [Duoneb 0.5 mg-3 mg/3 ml Soln] L.acidoph,Paracasei, B.lactis 1 cap PO BID 08/16/23 08/16/23 History [Probiotic] Levothyroxine Sodium [Synthroid] 100 mcg PO DAILY 08/16/23 08/16/23 History Lidocaine 5% Patch [Lidoderm] 1 patch TOPICAL DAILY 08/16/23 08/16/23 History Magnesium Oxide [Magox 400] 400 mg PO DAILY 08/16/23 08/16/23 History Midodrine [ProAmatine] 5 mg PO AC-TID 08/16/23 08/16/23 History Pantoprazole Sodium [Protonix] 40 mg PO DAILY 08/16/23 08/16/23 History buPROPion [Wellbutrin] 150 mg PO BID 08/16/23 08/16/23 History ceFAZolin [Kefzol] 2 gm IVP Q8HR 08/16/23 08/16/23 History droNABinol [Marinol] 2.5 mg PO BID 08/16/23 08/16/23 History predniSONE 5 mg PO DAILY 08/16/23 08/16/23 History Allergies Allergy/AdvReac Type Severity Reaction Status Date / Time No Known Allergies Allergy Verified 08/16/23 16:49 Physical Exam Vitals: Vital Signs Temp Pulse Resp BP Pulse Ox 08/17/23 15:18 104 H 08/17/23 15:08 106 H 08/17/23 15:00 104 H 16 89/52 97 08/17/23 14:30 101 H 14 101/57 98 08/17/23 14:00 105 H 20 114/68 99 08/17/23 13:30 104 H 18 108/58 100 08/17/23 13:00 105 H 18 103/58 99 08/17/23 12:30 107 H 13 89/54 99 08/17/23 12:00 104 H 18 95/53 98 08/17/23 11:30 111 H 19 75/50 97 08/17/23 11:00 107 H 14 90/53 98 08/17/23 10:30 108 H 20 83/53 98 08/17/23 10:00 105 H 12 104/58 92 L 08/17/23 09:30 101 H 21 84/45 98 08/17/23 09:00 102 H 21 67/45 08/17/23 08:30 102 H 23 111/59 08/17/23 08:26 100 08/17/23 08:01 100 97 08/17/23 08:00 98 F 100 18 101/61 98 08/17/23 07:30 98 16 94/52 08/17/23 07:00 98 23 106/64 08/17/23 06:30 101 H 27 H 98/52 08/17/23 06:00 92 24 99/54 98 08/17/23 05:30 90 23 96/51 97 08/17/23 05:00 88 26 H 103/55 99 08/17/23 04:30 92 23 106/64 97 08/17/23 04:00 97.7 F 96 17 114/52 96 08/17/23 03:30 92 20 87/54 100 08/17/23 03:00 93 0 L 96/44 92 L 08/17/23 02:30 99 25 H 98/48 97 08/17/23 02:00 98 20 101/54 98 08/17/23 01:50 92 08/17/23 01:40 92 08/17/23 01:30 90 17 110/64 08/17/23 01:00 200 H 46 H 08/17/23 00:30 83 3 L 115/75 99 08/17/23 00:00 97.9 F 86 18 115/75 98 08/16/23 23:30 85 13 123/65 97 08/16/23 23:00 85 21 123/65 97 08/16/23 22:44 87 29 H 08/16/23 22:38 93 18 114/67 98 08/16/23 22:00 76 18 124/50 98 08/16/23 21:06 81 08/16/23 21:00 84 18 108/84 97 08/16/23 20:51 80 08/16/23 20:00 79 18 109/66 98 08/16/23 18:29 75 18 118/74 96 08/16/23 17:29 76 18 91/58 98 Intake and Output 08/17/23 08/17/23 08/17/23 06:59 14:59 22:59 Intake Total 530 446 8 Output Total 1300 250 Balance 550 -676 -242 Intake: IV 180 120 Sodium Chloride 3%( 180 120 Hypertonic) 500 ml @ 30 mls/hr IV .[id number] ONE Rx #:[id number] Intake, IV Titration 206 8 Amount Acyclovir Sodium 650 mg 100 In Sodium Chloride 0.9% 100 ml @ 100 mls/hr IVPB Q8HR [facility] Rx#:[id number] Norepinephrine 4 mg In 16 8 Sodium Chloride 0.9% 250 ml @ 0.03 MCG/KG/MIN 7. 978 mls/hr IV .Q24H [facility] Rx#:[id number] Sodium Chloride 0.9% 500 40 0 ml 500 ml @ 20 mls/hr IV .Q24H [facility] Rx#:[id number] ceFAZolin 2 gm In Sodium 50 Chloride 0.9% 50 ml @ 100 mls/hr IVPB Q8H [facility] Rx#: [id number] Oral 350 120 Output: Urine 1300 250 Other: # Voids 1 Weight 69.8 kg 69.8 kg - Constitutional Frail General appearance: no acute distress - EENT Eyes: anicteric sclerae ENT: hearing grossly normal - Respiratory Respiratory: bilateral: CTA, diminished - Cardiovascular Rhythm: regular Heart sounds: normal: S1, S2 leg Peripheral Edema: bilateral: None - Gastrointestinal General gastrointestinal: soft - Integumentary Integumentary: pale - Musculoskeletal Musculoskeletal: generalized weakness - Psychiatric Nursing reports patient follows commands at times, other times he refuses to do things, patient not communicating with us however in the room but, he did respond to soft touch to the feet at pulling his legs away Results CBC & Chem 7: 08/17/23 04:46 08/17/23 18:00 Labs: Abnormal Lab Results - Last 24 Hours (Table) 08/16/23 08/16/23 08/16/23 Range/Units 14:06 14:06 14:06 WBC (3.8-10.6) k/uL RBC (4.30-5.90) m/uL Hgb (13.0-17.5) gm/dL Hct (39.0-53.0) % RDW (11.5-15.5) % Neutrophils # (1.3-7.7) k/uL Lymphocytes # (1.0-4.8) k/uL Sodium (137-145) mmol/L Potassium (3.5-5.1) mmol/L Chloride (98-107) mmol/L Carbon Dioxide (22-30) mmol/L Glucose (74-99) mg/dL POC Glucose (mg/dL) (70-110) mg/dL Osmolality 244 L* (280-301) mosm/kg Calcium (8.4-10.2) mg/dL Free T4 0.58 L (0.78-2.19) ng/dL Urine Glucose (UA) 3+ H (Negative) Urine Ketones 1+ H (Negative) 08/16/23 08/16/23 08/16/23 Range/Units 17:25 18:19 20:10 WBC (3.8-10.6) k/uL RBC (4.30-5.90) m/uL Hgb (13.0-17.5) gm/dL Hct (39.0-53.0) % RDW (11.5-15.5) % Neutrophils # (1.3-7.7) k/uL Lymphocytes # (1.0-4.8) k/uL Sodium 115 L* (137-145) mmol/L Potassium (3.5-5.1) mmol/L Chloride 82 L (98-107) mmol/L Carbon Dioxide (22-30) mmol/L Glucose (74-99) mg/dL POC Glucose (mg/dL) 35 L 57 L (70-110) mg/dL Osmolality (280-301) mosm/kg Calcium 7.7 L (8.4-10.2) mg/dL Free T4 (0.78-2.19) ng/dL Urine Glucose (UA) (Negative) Urine Ketones (Negative) 08/16/23 08/16/23 08/16/23 Range/Units 20:42 21:03 22:46 WBC (3.8-10.6) k/uL RBC (4.30-5.90) m/uL Hgb (13.0-17.5) gm/dL Hct (39.0-53.0) % RDW (11.5-15.5) % Neutrophils # (1.3-7.7) k/uL Lymphocytes # (1.0-4.8) k/uL Sodium (137-145) mmol/L Potassium (3.5-5.1) mmol/L Chloride (98-107) mmol/L Carbon Dioxide (22-30) mmol/L Glucose (74-99) mg/dL POC Glucose (mg/dL) 41 L 252 H 324 H (70-110) mg/dL Osmolality (280-301) mosm/kg Calcium (8.4-10.2) mg/dL Free T4 (0.78-2.19) ng/dL Urine Glucose (UA) (Negative) Urine Ketones (Negative) 08/16/23 08/17/23 08/17/23 Range/Units 23:20 01:47 04:04 WBC (3.8-10.6) k/uL RBC (4.30-5.90) m/uL Hgb (13.0-17.5) gm/dL Hct (39.0-53.0) % RDW (11.5-15.5) % Neutrophils # (1.3-7.7) k/uL Lymphocytes # (1.0-4.8) k/uL Sodium 112 L* (137-145) mmol/L Potassium (3.5-5.1) mmol/L Chloride 82 L (98-107) mmol/L Carbon Dioxide 19 L (22-30) mmol/L Glucose 259 H (74-99) mg/dL POC Glucose (mg/dL) 362 H 387 H (70-110) mg/dL Osmolality (280-301) mosm/kg Calcium 7.8 L (8.4-10.2) mg/dL Free T4 (0.78-2.19) ng/dL Urine Glucose (UA) (Negative) Urine Ketones (Negative) 08/17/23 08/17/23 08/17/23 Range/Units 04:05 04:46 06:28 WBC 15.3 H (3.8-10.6) k/uL RBC 2.57 L (4.30-5.90) m/uL Hgb 8.5 L (13.0-17.5) gm/dL Hct 23.9 L (39.0-53.0) % RDW 20.2 H (11.5-15.5) % Neutrophils # 14.0 H (1.3-7.7) k/uL Lymphocytes # 0.5 L (1.0-4.8) k/uL Sodium 113 L* (137-145) mmol/L Potassium 5.3 H (3.5-5.1) mmol/L Chloride 83 L (98-107) mmol/L Carbon Dioxide 15 L (22-30) mmol/L Glucose 339 H (74-99) mg/dL POC Glucose (mg/dL) 375 H (70-110) mg/dL Osmolality (280-301) mosm/kg Calcium 7.6 L (8.4-10.2) mg/dL Free T4 (0.78-2.19) ng/dL Urine Glucose (UA) (Negative) Urine Ketones (Negative) 08/17/23 08/17/23 08/17/23 Range/Units 07:47 12:01 12:14 WBC (3.8-10.6) k/uL RBC (4.30-5.90) m/uL Hgb (13.0-17.5) gm/dL Hct (39.0-53.0) % RDW (11.5-15.5) % Neutrophils # (1.3-7.7) k/uL Lymphocytes # (1.0-4.8) k/uL Sodium 117 L* 121 L (137-145) mmol/L Potassium (3.5-5.1) mmol/L Chloride (98-107) mmol/L Carbon Dioxide (22-30) mmol/L Glucose (74-99) mg/dL POC Glucose (mg/dL) 234 H (70-110) mg/dL Osmolality (280-301) mosm/kg Calcium (8.4-10.2) mg/dL Free T4 (0.78-2.19) ng/dL Urine Glucose (UA) (Negative) Urine Ketones (Negative) 08/17/23 Range/Units 15:07 WBC (3.8-10.6) k/uL RBC (4.30-5.90) m/uL Hgb (13.0-17.5) gm/dL Hct (39.0-53.0) % RDW (11.5-15.5) % Neutrophils # (1.3-7.7) k/uL Lymphocytes # (1.0-4.8) k/uL Sodium 123 L (137-145) mmol/L Potassium (3.5-5.1) mmol/L Chloride (98-107) mmol/L Carbon Dioxide (22-30) mmol/L Glucose (74-99) mg/dL POC Glucose (mg/dL) (70-110) mg/dL Osmolality (280-301) mosm/kg Calcium (8.4-10.2) mg/dL Free T4 (0.78-2.19) ng/dL Urine Glucose (UA) (Negative) Urine Ketones (Negative) Chest x-ray: report reviewed CT Scan - head: report reviewed Assessment and Plan (1) Hypoglycemia Current Visit: Yes Status: Acute Priority: High Code(s): E16.2 - HYPOGLYCEMIA, UNSPECIFIED SNOMED Code(s): 297578488 (2) Hyponatremia Current Visit: Yes Status: Acute Priority: High Code(s): E87.1 - HYPO- OSMOLALITY AND HYPONATREMIA SNOMED Code(s): 61737480 (3) Adenocarcinoma of lung, stage 4 Current Visit: Yes Status: Chronic Priority: High Code(s): C34.90 - MALIGNANT NEOPLASM OF UNSP PART OF UNSP BRONCHUS OR LUNG SNOMED Code(s): 623785552 (4) Abdominal wall cellulitis Current Visit: No Status: Chronic Priority: Medium Code(s): L03.311 - CELLULITIS OF ABDOMINAL WALL SNOMED Code(s): 84170903 Plan: Uncontrolled diabetes -Patient spent nearly 3 weeks at [facility], with multiple adjustments to his medications to try and control his blood sugars. He was just discharged last week Hyponatremia -Recurrent, severe -Appreciated Nephrology following, medications ordered Metastatic non-small cell lung cancer -Patient has not been out of the hospital long enough to proceed forward with any treatment -Last imaging was just about a month ago, no evidence to suggest significant disease progression, some areas were questionable for some slight progress. Hunter to be a pseudo-progression from immunotherapy. -Immunotherapy-related side effects have been worked up extensively. Cortisol levels have been normal when assessed. Will order ACTH. Will consider MRI of hypothalamus/pituitary. -Strict I&Os Daily f/u, further work up and recommendations from Hem/Onc standpoint attests: I seen and examined patient, performed H&P, developed impression and plan of care. Discussed with dictator. Agree with documentation, dictated as a scribe.
[2023-08-17 20:15] LABS: Glucose,Whole Blood 268 mg/dL (70-110)
[2023-08-17] MEDS: ATORVASTATIN 80 MG TAB PO SCH (20:31)
[2023-08-17] MEDS: EZETIMIBE 10 MG TAB PO SCH (20:31)
--- NOTE | 2023-08-17 23:08 | HP ---
HISTORY AND PHYSICAL HISTORY OF PRESENT ILLNESS: Came in to the hospital with severe hypoglycemia probably due to overdose of insulin unintentional with the patient not eating and swallowing secondary to lung cancer, metastatic. He has encephalopathy, pulmonary hypertension, pulmonary fibrosis, COPD, diabetes, history of PE, started on 3% saline for severe hyponatremia. He is on D10, hypothyroid. Increased his thyroid dose up to 125 from 100. He is much better. Thyroid is much improved from the other hospital. He is seen in the intensive care. All the CAT scans were reviewed. REVIEW OF SYSTEMS: A 14-point review of systems positive for generalized weakness, fatigue, altered mental status. PAST MEDICAL HISTORY: Coronary artery disease, metastatic adenocarcinoma, heart failure, COPD, diabetes mellitus, GI bleed, dyslipidemia, hypertension, osteoarthritis, pulmonary embolism, renal disease, vascular disorder, multiple gastric ulcers. Anxiety, depression. PAST SURGICAL HISTORY: Back surgery, cholecystectomy, heart catheterization with stents, femoral bypass of right leg. SOCIAL HISTORY: Former smoker. FAMILY HISTORY: Father with myocardial infarction, mother with cancer. MEDICATIONS: Reviewed. ALLERGIES: Reviewed. PHYSICAL EXAMINATION: VITAL SIGNS: Blood pressure is 87 to 114 over 60 to 70s, pulse is 80s to 90s, respiratory rate is 16 to 18, O2 97 to 98. GENERAL: He is weak, fatigued. CARDIOVASCULAR: S1, S2. LUNGS: Decreased breath sounds x4. PSYCH: Fair mood and affect. NEUROLOGIC: Alert and oriented x3. HEENT: Ophthalmologic, pupils equal, round, and reactive. NEUROLOGIC: Cranial nerves intact. LABORATORY DATA: White count is 12.4, hemoglobin is 8.6, sodium 112, BUN 17, creatinine 0.77, hemoglobin is 8.6. Multiple D50 boluses were given in the ER for hypoglycemia. Thyroid was increased to 125 home medications. He is on normal saline in the ER overnight. Possible SIADH as the serum ammonia level is low. Serum osmolality was low. Hypoglycemia, metabolic acidosis, hypothyroidism. He was not taking his thyroid pills, hyponatremic, encephalopathy, normocytic normochromic anemia, herpes zoster on antivirals. Abdominal cellulitis on IV antibiotics. He had a bacteremia. He was on IV antibiotics hospital. Pulmonary fibrosis, COPD, metastatic lung cancer, pulmonary embolism, COPD, remote CVA, coronary artery disease, pancreatitis, chronic pain, neuropathy, migraines, generalized weakness, fatigue, malnutrition. Please see further orders correct hyponatremia. Wait for renal physician. Hold all diabetic medications, only do sliding scale. He was placed on D5 fluids overnight. PROGNOSIS: Guarded. He remains in ICU. MMODL / IJN: [id number] /
--- NOTE | 2023-08-17 23:14 | PN ---
PROGRESS NOTE The patient's pulse rate is in the low 100s, temp 98.8, blood pressure is less orthostatic today. Blood pressure is 101 to 113 over 50s to 60s, saturating 98% on 2 L. He is being treated for herpetic infection on his right arm, cellulitis of the abdomen. He had a positive blood culture at [facility], which he is on 2 weeks of antibiotics. His hyponatremia is improving with fluids. He is up to 123 from 117 on admission. Sugars 200s to 300s. He was severely hyperglycemic on admission. Remains in the SICU. Nephrology saw the patient. Pulmonology saw the patient. His hyponatremia is secondary to SIADH from malignancy and poor oral intake, metabolic acidosis secondary to ketoacidosis, hypothyroidism, metastatic lung cancer, diabetes mellitus, history of coronary artery disease. He was given 3% normal saline. We will increase his midodrine for orthostatic hypotension. Sugar control. Encourage oral intake. Cortisol level will not be accurate as the patient on Solu-Cortef. Repeat sodium level and monitor fluids. Prognosis guarded. Continue current treatment. MMODL / IJN: [id number] /
[2023-08-18] MEDS: HYDROCORTISONE SUCCINATE 100 MG/2 ML VIAL IV SCH ×3 (00:38→16:42)
[2023-08-18] MEDS: IPRATROPIUM-ALBUTEROL 3 ML NEB INHALATION SCH ×4 (01:25→20:31)
[2023-08-18] MEDS ORDERED: DEXMEDETOMIDINE/0.9% NACL(PMX) 400 MCG in EMPTY BAG 1 BAG IV SCH (02:30)
[2023-08-18 04:40] LABS: Anisocytosis Moderate; Basophils % (A) 0 %; Eosinophils % (A) 0 %; HCT 23.8 % (39.0-53.0); HGB 8.6 gm/dL (13.0-17.5); Lymphocytes # (A) 0.3 k/uL (1.0-4.8); Lymphocytes % (A) 2 %; MCH 35.2 pg (25.0-35.0); MCHC 36.2 g/dL (31.0-37.0); MCV 97.3 fL (80.0-100.0); Macrocytosis Slight; Mean Platelet Volume 7.4; Monocytes # (A) 0.3 k/uL (0-1.0); Monocytes % (A) 2 %; Neutrophils # (A) 12.4 k/uL (1.3-7.7); Neutrophils % (A) 95 %; Platelet Count 255 k/uL (150-450); RBC 2.45 m/uL (4.30-5.90); RDW 20.5 % (11.5-15.5); WBC 13.1 k/uL (3.8-10.6)
[2023-08-18 04:56] LABS: African American GFR (CKD) >90 (>60 ml/min/1.73 sqM); Anion Gap 18 mmol/L; Blood Urea Nitrogen 17 mg/dL (9-20); Carbon Dioxide 18 mmol/L (22-30); Chloride 91 mmol/L (98-107); Glucose 412 mg/dL (74-99); Non-African American GFR(CKD) >90 (>60 ml/min/1.73 sqM); Potassium 4.9 mmol/L (3.5-5.1); Sodium 127 mmol/L (137-145)
[2023-08-18 05:20] LABS: Glucose,Whole Blood 502 mg/dL (70-110)
[2023-08-18 05:22] LABS: Glucose,Whole Blood 490 mg/dL (70-110)
[2023-08-18 06:27] LABS: Glucose,Whole Blood 529 mg/dL (70-110)
[2023-08-18] MEDS ORDERED: DEXTROSE 50% SYRINGE 50 ML IVP PRN ×2 (06:30)
[2023-08-18] MEDS: PANTOPRAZOLE 40 MG TABLET PO SCH (06:43)
[2023-08-18] MEDS: MIDODRINE 5 MG TAB PO SCH ×3 (06:43→16:42)
[2023-08-18] MEDS: INSULIN ASPART (NovoLOG) 100 UNIT/ML VIAL SQ SCH ×5 (06:43→21:06)
[2023-08-18] MEDS: LEVOTHYROXINE 125 MCG TAB PO SCH (06:43)
[2023-08-18 07:08] LABS: Glucose,Whole Blood 532 mg/dL (70-110)
[2023-08-18] MEDS: INSULIN DETEMIR (LEVEMIR) 100 UNIT/ML SYR SQ SCH (07:09)
[2023-08-18] MEDS: buPROPion 75 MG TAB PO SCH ×2 (08:02→20:57)
[2023-08-18] MEDS: MAGNESIUM OXIDE 400 MG TAB PO SCH (08:02)
[2023-08-18] MEDS: ASPIRIN 81 MG PO SCH (08:02)
[2023-08-18] MEDS: GABAPENTIN 100 MG CAP PO SCH ×3 (08:02→20:59)
[2023-08-18] MEDS: HEPARIN SODIUM,PORCINE 5,000 UNIT/ML 1 ML VIAL SQ SCH ×2 (08:02→20:59)
[2023-08-18] MEDS: CLOPIDOGREL 75 MG TAB PO SCH (08:02)
[2023-08-18] MEDS: CARBAMIDE PEROXIDE 6.5% DROPS 15 ML BTL BOTH EARS SCH ×2 (09:08→21:00)
[2023-08-18] MEDS: BUDESONIDE 0.5 MG/2 ML NEBU INHALATION SCH ×2 (09:40→20:31)
[2023-08-18] MEDS: HYDROcodone/APAP 5-325MG 1 EACH TAB PO PRN ×2 (10:02→20:58)
[2023-08-18] MEDS: droNABinol 2.5 MG CAP PO SCH ×2 (10:02→21:05)
[2023-08-18] MEDS: NOREPINEPHRINE 4 MG in SODIUM CHLORIDE 0.9% 250 ML IV SCH (10:04)
[2023-08-18] MEDS: QUEtiapine 25 MG TAB PO SCH ×3 (10:22→20:59)
--- NOTE | 2023-08-18 10:59 | P.PN ---
Subjective Patient is seen in follow-up for hyponatremia. Sodium level gradually improving up to 127 this morning. Receiving insulin for hyperglycemia. Oral intake poor. Resting in bed. On Levophed. Vital signs are stable. On vasopressor support. General: Lethargic. HEENT: Head exam is unremarkable. On nasal cannula. LUNGS: No audible rhonchi or wheezes. HEART: Rate and Rhythm are regular. ABDOMEN: Nontender. EXTREMITITES: No edema. Objective - Vital Signs Vital signs: Vital Signs Temp 97.8 F 08/18/23 08:00 Pulse 101 H 08/18/23 10:00 Resp 16 08/18/23 10:00 BP 101/55 08/18/23 10:00 Pulse Ox 100 08/18/23 10:00 FiO2 Intake & Output 08/17/23 08/18/23 08/18/23 18:59 06:59 18:59 Intake Total 629.315 100 425.622 Output Total 1900 2225 700 Balance -1270.685 -2125 -274.378 Weight 69.8 kg 66.2 kg Intake: IV 120 Sodium Chloride 3%( 120 Hypertonic) 500 ml @ 30 mls/hr IV .[id number] [facility] Rx #:[id number] Intake, IV Titration 269.315 50 185.622 Amount Acyclovir Sodium 650 mg 100 In Sodium Chloride 0.9% 100 ml @ 100 mls/hr IVPB Q8HR [facility] Rx#:[id number] Dexmedetomidine/0.9% NaCl 10.5 (Pmx) 400 mcg In Empty Bag 1 bag @ 0.2 MCG/KG/HR 3.49 mls/hr IV .Q24H [facility] Rx#:[id number] Norepinephrine 4 mg In 79.315 125.122 Sodium Chloride 0.9% 250 ml @ 0.03 MCG/KG/MIN 7. 978 mls/hr IV .Q24H [facility] Rx#:[id number] Sodium Chloride 0.9% 500 40 0 ml 500 ml @ 20 mls/hr IV .Q24H [facility] Rx#:[id number] ceFAZolin 2 gm In Sodium 50 50 50 Chloride 0.9% 50 ml @ 100 mls/hr IVPB Q8H [facility] Rx#: [id number] Oral 240 50 240 Output: Urine 1900 2225 700 Other: Voiding Method Indwelling Catheter Indwelling Catheter Indwelling Catheter # Voids 1 - Labs CBC & Chem 7: 08/18/23 03:56 08/18/23 03:56 Labs: Abnormal Lab Results - Last 24 Hours (Table) 08/17/23 08/17/23 08/17/23 Range/Units 12:01 12:14 15:07 WBC (3.8-10.6) k/uL RBC (4.30-5.90) m/uL Hgb (13.0-17.5) gm/dL Hct (39.0-53.0) % MCH (25.0-35.0) pg RDW (11.5-15.5) % Neutrophils # (1.3-7.7) k/uL Lymphocytes # (1.0-4.8) k/uL Sodium 121 L 123 L (137-145) mmol/L Chloride (98-107) mmol/L Carbon Dioxide (22-30) mmol/L Glucose (74-99) mg/dL POC Glucose (mg/dL) 234 H (70-110) mg/dL Calcium (8.4-10.2) mg/dL 08/17/23 08/17/23 08/17/23 Range/Units 17:01 18:00 20:14 WBC (3.8-10.6) k/uL RBC (4.30-5.90) m/uL Hgb (13.0-17.5) gm/dL Hct (39.0-53.0) % MCH (25.0-35.0) pg RDW (11.5-15.5) % Neutrophils # (1.3-7.7) k/uL Lymphocytes # (1.0-4.8) k/uL Sodium 122 L (137-145) mmol/L Chloride (98-107) mmol/L Carbon Dioxide (22-30) mmol/L Glucose (74-99) mg/dL POC Glucose (mg/dL) 303 H 268 H (70-110) mg/dL Calcium (8.4-10.2) mg/dL 08/17/23 08/18/23 08/18/23 Range/Units 21:04 03:56 03:56 WBC 13.1 H (3.8-10.6) k/uL RBC 2.45 L (4.30-5.90) m/uL Hgb 8.6 L (13.0-17.5) gm/dL Hct 23.8 L (39.0-53.0) % MCH 35.2 H (25.0-35.0) pg RDW 20.5 H (11.5-15.5) % Neutrophils # 12.4 H (1.3-7.7) k/uL Lymphocytes # 0.3 L (1.0-4.8) k/uL Sodium 124 L 127 L (137-145) mmol/L Chloride 91 L (98-107) mmol/L Carbon Dioxide 18 L (22-30) mmol/L Glucose 412 H (74-99) mg/dL POC Glucose (mg/dL) (70-110) mg/dL Calcium 8.0 L (8.4-10.2) mg/dL 08/18/23 08/18/23 08/18/23 Range/Units 05:18 05:20 06:24 WBC (3.8-10.6) k/uL RBC (4.30-5.90) m/uL Hgb (13.0-17.5) gm/dL Hct (39.0-53.0) % MCH (25.0-35.0) pg RDW (11.5-15.5) % Neutrophils # (1.3-7.7) k/uL Lymphocytes # (1.0-4.8) k/uL Sodium (137-145) mmol/L Chloride (98-107) mmol/L Carbon Dioxide (22-30) mmol/L Glucose (74-99) mg/dL POC Glucose (mg/dL) 502 H 490 H 529 H (70-110) mg/dL Calcium (8.4-10.2) mg/dL 08/18/23 Range/Units 07:06 WBC (3.8-10.6) k/uL RBC (4.30-5.90) m/uL Hgb (13.0-17.5) gm/dL Hct (39.0-53.0) % MCH (25.0-35.0) pg RDW (11.5-15.5) % Neutrophils # (1.3-7.7) k/uL Lymphocytes # (1.0-4.8) k/uL Sodium (137-145) mmol/L Chloride (98-107) mmol/L Carbon Dioxide (22-30) mmol/L Glucose (74-99) mg/dL POC Glucose (mg/dL) 532 H (70-110) mg/dL Calcium (8.4-10.2) mg/dL Assessment and Plan Plan: Assessment: 1. 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 Also component of urinary retention. Sodium level 127 this morning. Urine sodium 111 and urine osmolality 430. 2. Metabolic acidosis secondary to ketoacidosis. 3. Hypothyroidism maintained on Synthroid. 4. Metastatic lung cancer. 5. Diabetes mellitus. 6. History of coronary artery disease. 7. Urinary retention. Costa catheter placed 08/17/2023. Plan: Start half normal saline at 75 mL an hour. Maintain midodrine. Wean vasopressors. Blood sugar control. Encouraged oral intake. Cortisol level will not be accurate as patient is already on Solu-Cortef. Repeat sodium level this evening.
--- NOTE | 2023-08-18 11:05 | P.PN ---
Subjective Progress Note Date: 08/18/23 Principal diagnosis: Encephalopathy. I am seeing this patient in new consultation today 08/17/2023 in the intensive care unit after he presented from [facility] with altered mental status. Patient is a 63-year-old male with past medical history significant for metastatic lung cancer, pulmonary fibrosis, COPD, type 1 diabetes mellitus, hypertension, hyperlipidemia, pulmonary embolism, among other things. Patient does follow with his oncologist Dr. Heredia for management of his metastatic lung cancer, and had been receiving a combination of Carbolplatin/Alimta/Keytuda, but is on hold in light of his recent soft tissue abdominal well cellulitis/abscess. This reportedly developed from an old insulin pump subcutaneous site. Apparently, the patient was recently hospitalized at [facility] for abdominal wall cellulitis and hyponatremia. He also was found to have shingles, and started on antivirals. Patient was then discharged to [facility] rehab facility. At the outside facility, he was found to be confused. It was felt this correlated with his [place] administration, however, he was found to have abnormal blood glucose readings. on arrival to the emergency room, a nonenhanced brain CT did not show any acute intracranial abnormality. It did s how generalized atrophy and remote infarct/consult of the right cerebral hemisphere. Chest x-ray on arrival showed chronic fibrotic changeswithout any acute cardiopulmonary process. Patient is currently lying in bed, on 2 L/m nasal cannula, in no acute distress. He is still confused and having visual hallucinations. His sodium was found to be severely low at 115, and he was started on a hypertonic saline infusion which is currently running at 30 MLS per hour. He was also hypoglycemic in the emergency room, and started on a D10W. This is currently on hold, because the patient is now hyperglycemic.CBC on arrival showed a WBC count of 12.4, hemoglobin 8.6, hematocrit 23.7, platelets 205. Most recent BMP from around midnight showed a sodium 112, potassium 5, chloride 82, serum bicarb 19, BUN 17, creatinine 0.77, glucose 259. Serum osmolality was 244. Urine osmolality was 430. Urine sodium 111. hyponatremia is being managed by nephrology. TSH was elevated at 18.7 and free T4 0.58. Patie nt had reportedly been refusing his medications. UA not concerning for UTI. No documented fevers. Restarted on Cefazolin and Acyclovir. Patient is admitted to the intensive care unit. Progress note dated 08/18/2023. 63-year-old male seen yesterday in consultation, for mental status changes, in part related to hyponatremia. The patient has history of metastatic lung cancer, pulmonary fibrosis, COPD, diabetes, hypertension, hyperlipidemia, pulmonary embolism, and multiple other medical problems. The patient was admitted with a sodium of 112. Currently, his sodium is 127. He seen in the intensive care unit, room 253. Currently, he's on 2 L of oxygen. He is getting norepinephrine at 2 mcg/m, Precedex for agitation is 0.2 mcg/kg per hour. Saline running at 10 mL an hour. Seroquel, 25 mg 3 times a day for agitation. White count 13.1, hemoglobin 8.6, hematocrit 23.8, with a normal platelet count. Sodium 127, potassium 4.9, chlorides 91, CO2 18, anion gap 18, BUN 17, and creatinine 0.78. Objective - Vital Signs Vital signs: Vital Signs Temp 97.8 F 08/18/23 08:00 Pulse 101 H 08/18/23 10:00 Resp 16 08/18/23 10:00 BP 101/55 08/18/23 10:00 Pulse Ox 100 08/18/23 10:00 FiO2 Intake & Output 08/17/23 08/18/23 08/18/23 18:59 06:59 18:59 Intake Total 629.315 100 425.622 Output Total 1900 2225 700 Balance -1270.685 -2125 -274.378 Weight 69.8 kg 66.2 kg Intake: IV 120 Sodium Chloride 3%( 120 Hypertonic) 500 ml @ 30 mls/hr IV .[id number] [facility] Rx #:[id number] Intake, IV Titration 269.315 50 185.622 Amount Acyclovir Sodium 650 mg 100 In Sodium Chloride 0.9% 100 ml @ 100 mls/hr IVPB Q8HR [facility] Rx#:[id number] Dexmedetomidine/0.9% NaCl 10.5 (Pmx) 400 mcg In Empty Bag 1 bag @ 0.2 MCG/KG/HR 3.49 mls/hr IV .Q24H [facility] Rx#:[id number] Norepinephrine 4 mg In 79.315 125.122 Sodium Chloride 0.9% 250 ml @ 0.03 MCG/KG/MIN 7. 978 mls/hr IV .Q24H [facility] Rx#:[id number] Sodium Chloride 0.9% 500 40 0 ml 500 ml @ 20 mls/hr IV .Q24H [facility] Rx#:[id number] ceFAZolin 2 gm In Sodium 50 50 50 Chloride 0.9% 50 ml @ 100 mls/hr IVPB Q8H [facility] Rx#: [id number] Oral 240 50 240 Output: Urine 1900 2225 700 Other: Voiding Method Indwelling Catheter Indwelling Catheter Indwelling Catheter # Voids 1 - Exam No acute distress, somnolent, currently on 2 L of oxygen. HEENT examination is grossly unremarkable. Mucous membranes are moist. No oral lesions. Neck supple. Full range of motion. No adenopathy thyromegaly or neck vein distention. Cardiovascular examination reveals regular rhythm rate. S1-S2 normal. No S3 or S4. No discernible murmur noted. Lungs reveal scattered bilateral rhonchi. No wheezes or crackles. Breath sounds equal. Saturations are adequate on 2 L. Abdomen soft bowel sounds are heard. No masses or tenderness. Extremities are intact. No cyanosis clubbing or edema. Skin is without rash or lesion. Neurologic examination is brief but nonfocal. - Labs CBC & Chem 7: 08/18/23 03:56 08/18/23 03:56 Labs: Abnormal Lab Results - Last 24 Hours (Table) 08/17/23 08/17/23 08/17/23 Range/Units 12:01 12:14 15:07 WBC (3.8-10.6) k/uL RBC (4.30-5.90) m/uL Hgb (13.0-17.5) gm/dL Hct (39.0-53.0) % MCH (25.0-35.0) pg RDW (11.5-15.5) % Neutrophils # (1.3-7.7) k/uL Lymphocytes # (1.0-4.8) k/uL Sodium 121 L 123 L (137-145) mmol/L Chloride (98-107) mmol/L Carbon Dioxide (22-30) mmol/L Glucose (74-99) mg/dL POC Glucose (mg/dL) 234 H (70-110) mg/dL Calcium (8.4-10.2) mg/dL 08/17/23 08/17/23 08/17/23 Range/Units 17:01 18:00 20:14 WBC (3.8-10.6) k/uL RBC (4.30-5.90) m/uL Hgb (13.0-17.5) gm/dL Hct (39.0-53.0) % MCH (25.0-35.0) pg RDW (11.5-15.5) % Neutrophils # (1.3-7.7) k/uL Lymphocytes # (1.0-4.8) k/uL Sodium 122 L (137-145) mmol/L Chloride (98-107) mmol/L Carbon Dioxide (22-30) mmol/L Glucose (74-99) mg/dL POC Glucose (mg/dL) 303 H 268 H (70-110) mg/dL Calcium (8.4-10.2) mg/dL 08/17/23 08/18/23 08/18/23 Range/Units 21:04 03:56 03:56 WBC 13.1 H (3.8-10.6) k/uL RBC 2.45 L (4.30-5.90) m/uL Hgb 8.6 L (13.0-17.5) gm/dL Hct 23.8 L (39.0-53.0) % MCH 35.2 H (25.0-35.0) pg RDW 20.5 H (11.5-15.5) % Neutrophils # 12.4 H (1.3-7.7) k/uL Lymphocytes # 0.3 L (1.0-4.8) k/uL Sodium 124 L 127 L (137-145) mmol/L Chloride 91 L (98-107) mmol/L Carbon Dioxide 18 L (22-30) mmol/L Glucose 412 H (74-99) mg/dL POC Glucose (mg/dL) (70-110) mg/dL Calcium 8.0 L (8.4-10.2) mg/dL 08/18/23 08/18/23 08/18/23 Range/Units 05:18 05:20 06:24 WBC (3.8-10.6) k/uL RBC (4.30-5.90) m/uL Hgb (13.0-17.5) gm/dL Hct (39.0-53.0) % MCH (25.0-35.0) pg RDW (11.5-15.5) % Neutrophils # (1.3-7.7) k/uL Lymphocytes # (1.0-4.8) k/uL Sodium (137-145) mmol/L Chloride (98-107) mmol/L Carbon Dioxide (22-30) mmol/L Glucose (74-99) mg/dL POC Glucose (mg/dL) 502 H 490 H 529 H (70-110) mg/dL Calcium (8.4-10.2) mg/dL 08/18/23 Range/Units 07:06 WBC (3.8-10.6) k/uL RBC (4.30-5.90) m/uL Hgb (13.0-17.5) gm/dL Hct (39.0-53.0) % MCH (25.0-35.0) pg RDW (11.5-15.5) % Neutrophils # (1.3-7.7) k/uL Lymphocytes # (1.0-4.8) k/uL Sodium (137-145) mmol/L Chloride (98-107) mmol/L Carbon Dioxide (22-30) mmol/L Glucose (74-99) mg/dL POC Glucose (mg/dL) 532 H (70-110) mg/dL Calcium (8.4-10.2) mg/dL Assessment and Plan Assessment: Severe hyponatremia, suspect SIADH. Hypoglycemia, improved. Anion gap metabolic acidosis. Hypothyroidism. Hyponatremic encephalopathy. Chronic normocytic normochromic anemia. Herpes zoster. History of abdominal wall cellulitis. Leukocytosis. Metastatic lung cancer. Chronic pulmonary fibrosis. Chronic obstructive pulmonary disease. Chronic hypoxemic respiratory failure. History of pulmonary embolism, status post IVC filter. Diabetes mellitus, insulin-dependent. Hyperlipidemia. Remote CVA. Coronary artery disease, with previous coronary stents. History of pancreatitis. Chronic pain. Peripheral neuropathy. History of migraines. Plan: Plan dated 08/18/2023. The patient remains in the intensive care unit. He remains on norepinephrine at 2 mcg/m. Sodium is up to 127. The patient's getting saline at 10 mL an hour. He no longer is on 3% saline. The patient will get Seroquel 25 mg 3 times a day for agitation. They dexmedetomidine was started at 2:50 AM, and I told the nurse that she can use it for up to 24 hours. Labs, x-rays, medications are reviewed. The patient's prognosis remains guarded. He remains on Ancef. We will continue to follow the patient, make recommendations along the way. Time with Patient: Greater than 30
[2023-08-18] MEDS: SODIUM CHLORIDE 0.45% 1,000 ML IV SCH (11:07)
--- NOTE | 2023-08-18 11:16 | CDI ---
Documentation Clarification Form Date: 08/18/2023 10:49:53 AM From: Raven Ramirez RN CCDS Phone: [phone] Admit Date: 08/16/2023 04:00:00 PM Patient Name: Neptali Chilel Visit Number: [id number] Discharge Date: ATTENTION: The Clinical Documentation Specialists (CDI) and [facility] Coding Staff appreciate your assistance in clarifying documentation. Please respond to the clarification below the line at the bottom and electronically sign. The CDI & [facility] Coding staff will review the response and follow-up if needed. Please note: Queries are made part of the Legal Health Record. If you have any questions, please contact the author of this message via ITS. Dr. Robert Acevedo Encephalopathy is documented 08/17, H&P. Additional clarification regarding the type of encephalopathy is requested. History/Risk Factors:63-year-old male was recently admitted to [facility] for right shoulder shingles, hyponatremia and abdominal wall cellulitis, was admitted to [facility] for three days and became, lethargic, altered mentation. Medical History: DM1; hyponatremia, lung cancer with metastasis and CHF. 08/16, ED note. Clinical Indicators: VSS, 08/18: B/P 88/61; HR 86; RR 24; Spo2 97% 4L nc Labs: Wbc 12.4 Hgb 8.6; Neutrophils 10.8; Na 116; Glucose 27; Osmolality 244; Calcium 8.2; Alk phosphate 135; CT Brain, 08/16: No acute intracranial CT abnormality. Generalized atrophy and remote infarct insult right cerebral hemisphere. 08/17, Nephrology: Hyponatremia seconday to SIADH from malignancy and poor solute intake. Sodium level 116 on admission and dropped to 112-117 this morning. Urine sodium 111 and urine osmolality 430 Treatment: 08/16 0.9NS 500cc bolus, Dextrose 50% IVP x 4; Dextrose 5% ns 100cc/hr; Proamatine Po x 1; 08/16 Dextrose/Water Sodium Chloride 153.8meq 1,038.45mls 2 100mls/hr IV [id number]; Sodium Chloride Saline 3% 500mls @ 30mls/hr;10!6 Sodium Bicarb 8.4% Syr 50ml IV once STA; x 2 Proamatine 10mg po AC-TID Consults: Nephrology see above Please clarify the type of encephalopathy, if known: [ ] Metabolic Encephalopathy secondary to SIADH [ ] Other, please specify [ ] Unable to determine (Template Last Revised: December 2020) MTDD
[2023-08-18 11:20] LABS: Glucose,Whole Blood 418 mg/dL (70-110)
--- NOTE | 2023-08-18 11:41 | CDI ---
Documentation Clarification Form Date: 08/18/2023 11:18:12 AM From: Raven Ramirez RN CDDS Phone: [phone] Admit Date: 08/16/2023 04:00:00 PM Patient Name: Neptali Chilel Visit Number: [id number] Discharge Date: ATTENTION: The Clinical Documentation Specialists (CDI) and [facility] Coding Staff appreciate your assistance in clarifying documentation. Please respond to the clarification below the line at the bottom and electronically sign. The CDI & [facility] Coding staff will review the response and follow-up if needed. Please note: Queries are made part of the Legal Health Record. If you have any questions, please contact the author of this message via ITS. Dr. Axel Porter, DO There is documentation of metabolic acidosis secondary to ketoacidosis, 08/17, Nephrology consult. Additional clarification is requested. History/Risk Factors: 63-year-old male was recently admitted to [facility] for right shoulder shingles, hyponatremia and abdominal wall cellulitis, was admitted to [facility] for three days and became, lethargic, altered mentation. Medical History: DM1; hyponatremia, lung cancer with metastasis and CHF. 08/16, ED note Clinical Indicators: Labs, 08/16: Na 116, Chl 82, Glucose 27, Osmolality 244; Calcium 8.2; Alkaline Phosphatase 135; Albumin 2.9, Total protein 5.6; TSH 18.700; FreeT4 0.58 ED note, 08/16: They state that 15 minutes after the [place] administration they went back in the room to check on him and he was altered and they took his glucose and it was noted to be over 500.They did administer his insulin this morning. Patient transported into the emergency department. EMS found the patient to have a glucose of 75. Treatment: Treatment: 08/16 0.9NS 500cc bolus, Dextrose 50% IVP x 4; Dextrose 5% ns 100cc/hr; Proamatine Po x 1; 08/16 Dextrose/Water Sodium Chloride 153.8meq 1,038.45mls 2 100mls/hr IV [id number]; Sodium Chloride Saline 3% 500mls @ 30mls/hr;10!6 Sodium Bicarb 8.4% Syr 50ml IV once STA; x 2 Proamatine 10mg po AC-TID, 08/17 Novolog 5 unit sq x 1; 08/17 ACHS sq SC sliding scale. 08/18 Novolg 0 unit Sq Q4H [facility] changed on 09/18 to levemir 10 unit sq Daily Can you please clarify ketoacidosis? [ x ] DM Type 1 Ketoacidosis [ ] Other, please specify [ ] Unable to determine (Template Last Revised: December 2020) MTDD
[2023-08-18 15:26] LABS: Glucose,Whole Blood 337 mg/dL (70-110)
[2023-08-18 16:54] LABS: Glucose,Whole Blood 247 mg/dL (70-110)
--- NOTE | 2023-08-18 17:20 | P.PN ---
Subjective Progress Note Date: 08/18/23 Principal diagnosis: Metastatic NSCLC In f/u today pt was easier to arouse then yesterday, mildly agitated and confused. VS look better, he is on levophed. Objective - Vital Signs Vital signs: Vital Signs Temp 97.8 F 08/18/23 16:00 Pulse 105 H 08/18/23 16:00 Resp 18 08/18/23 16:00 BP 93/48 08/18/23 16:00 Pulse Ox 100 08/18/23 16:00 FiO2 Intake & Output 08/17/23 08/18/23 08/18/23 18:59 06:59 18:59 Intake Total 629.543 093 9983.802 Output Total 1900 2225 1325 Balance -1270.685 -2125 -314.198 Weight 69.8 kg 66.2 kg Intake: IV 120 Sodium Chloride 3%( 120 Hypertonic) 500 ml @ 30 mls/hr IV .[id number] [facility] Rx #:[id number] Intake, IV Titration 269.315 50 770.802 Amount Acyclovir Sodium 650 mg 100 In Sodium Chloride 0.9% 100 ml @ 100 mls/hr IVPB Q8HR [facility] Rx#:[id number] Dexmedetomidine/0.9% NaCl 31.5 (Pmx) 400 mcg In Empty Bag 1 bag @ 0.2 MCG/KG/HR 3.49 mls/hr IV .Q24H [facility] Rx#:[id number] Norepinephrine 4 mg In 79.315 189.302 Sodium Chloride 0.9% 250 ml @ 0.03 MCG/KG/MIN 7. 978 mls/hr IV .Q24H [facility] Rx#:[id number] Sodium Chloride 0.45% 1, 450 000 ml @ 75 mls/hr IV . [id number] [facility] Rx#:[id number] Sodium Chloride 0.9% 500 40 0 ml 500 ml @ 20 mls/hr IV .Q24H [facility] Rx#:[id number] ceFAZolin 2 gm In Sodium 50 50 100 Chloride 0.9% 50 ml @ 100 mls/hr IVPB Q8H [facility] Rx#: [id number] Oral 240 50 240 Output: Urine 1900 2225 1325 Other: Voiding Method Indwelling Catheter Indwelling Catheter Indwelling Catheter # Voids 1 - Constitutional General appearance: Present: average body habitus, mild distress - EENT Eyes: Present: anicteric sclerae ENT: Present: hearing grossly normal - Cardiovascular Rhythm: regular Heart sounds: normal: S1, S2 - Integumentary Integumentary: Present: pale - Psychiatric Psychiatric Comment(s): arousable with loud voice, confused conversation - Labs CBC & Chem 7: 08/18/23 03:56 08/18/23 03:56 Labs: Abnormal Lab Results - Last 24 Hours (Table) 08/17/23 08/17/23 08/17/23 Range/Units 17:01 18:00 20:14 WBC (3.8-10.6) k/uL RBC (4.30-5.90) m/uL Hgb (13.0-17.5) gm/dL Hct (39.0-53.0) % MCH (25.0-35.0) pg RDW (11.5-15.5) % Neutrophils # (1.3-7.7) k/uL Lymphocytes # (1.0-4.8) k/uL Sodium 122 L (137-145) mmol/L Chloride (98-107) mmol/L Carbon Dioxide (22-30) mmol/L Glucose (74-99) mg/dL POC Glucose (mg/dL) 303 H 268 H (70-110) mg/dL Calcium (8.4-10.2) mg/dL 08/17/23 08/18/23 08/18/23 Range/Units 21:04 03:56 03:56 WBC 13.1 H (3.8-10.6) k/uL RBC 2.45 L (4.30-5.90) m/uL Hgb 8.6 L (13.0-17.5) gm/dL Hct 23.8 L (39.0-53.0) % MCH 35.2 H (25.0-35.0) pg RDW 20.5 H (11.5-15.5) % Neutrophils # 12.4 H (1.3-7.7) k/uL Lymphocytes # 0.3 L (1.0-4.8) k/uL Sodium 124 L 127 L (137-145) mmol/L Chloride 91 L (98-107) mmol/L Carbon Dioxide 18 L (22-30) mmol/L Glucose 412 H (74-99) mg/dL POC Glucose (mg/dL) (70-110) mg/dL Calcium 8.0 L (8.4-10.2) mg/dL 08/18/23 08/18/23 08/18/23 Range/Units 05:18 05:20 06:24 WBC (3.8-10.6) k/uL RBC (4.30-5.90) m/uL Hgb (13.0-17.5) gm/dL Hct (39.0-53.0) % MCH (25.0-35.0) pg RDW (11.5-15.5) % Neutrophils # (1.3-7.7) k/uL Lymphocytes # (1.0-4.8) k/uL Sodium (137-145) mmol/L Chloride (98-107) mmol/L Carbon Dioxide (22-30) mmol/L Glucose (74-99) mg/dL POC Glucose (mg/dL) 502 H 490 H 529 H (70-110) mg/dL Calcium (8.4-10.2) mg/dL 08/18/23 08/18/23 08/18/23 Range/Units 07:06 11:18 14:41 WBC (3.8-10.6) k/uL RBC (4.30-5.90) m/uL Hgb (13.0-17.5) gm/dL Hct (39.0-53.0) % MCH (25.0-35.0) pg RDW (11.5-15.5) % Neutrophils # (1.3-7.7) k/uL Lymphocytes # (1.0-4.8) k/uL Sodium (137-145) mmol/L Chloride (98-107) mmol/L Carbon Dioxide (22-30) mmol/L Glucose (74-99) mg/dL POC Glucose (mg/dL) 532 H 418 H 337 H (70-110) mg/dL Calcium (8.4-10.2) mg/dL Microbiology - Last 24 Hours (Table) 08/16/23 23:30 Blood Culture - Preliminary Blood 08/16/23 23:20 Blood Culture - Preliminary Blood Assessment and Plan (1) Hypoglycemia Current Visit: Yes Status: Acute Priority: High Code(s): E16.2 - HYPOGLYCEMIA, UNSPECIFIED SNOMED Code(s): 420331298 (2) Hyponatremia Current Visit: Yes Status: Acute Priority: High Code(s): E87.1 - HYPO- OSMOLALITY AND HYPONATREMIA SNOMED Code(s): 80573997 (3) Adenocarcinoma of lung, stage 4 Current Visit: Yes Status: Chronic Priority: High Code(s): C34.90 - MALIGNANT NEOPLASM OF UNSP PART OF UNSP BRONCHUS OR LUNG SNOMED Code(s): 267282560 (4) Abdominal wall cellulitis Current Visit: No Status: Resolved Priority: Medium Code(s): L03.311 - CELLULITIS OF ABDOMINAL WALL SNOMED Code(s): 83421200 Plan: Uncontrolled diabetes -Patient spent nearly 3 weeks at [facility], with multiple ad justments to his medications to try and control his blood sugars. He was just discharged last week -Cont to be worked on currently Hyponatremia -Recurrent, severe -Appreciated Nephrology following, medications ordered. Na+ improved today Metastatic non-small cell lung cancer -Patient has not been out of the hospital long enough to proceed forward with any treatment -Last imaging was just about a month ago, no evidence to suggest significant disease progression, some areas were questionable for some slight progress. Melvin to be a pseudo-progression from immunotherapy. -No treatment will be planned until pt has recovered and had a chance to rehabilitate. -Immunotherapy-related side effects have been worked up extensively, all results have been normal when assessed. ACTH pending. -Strict I&Os Daily f/u, further work up and recommendations from Hem/Onc standpoint attests: I seen and examined patient, performed H&P, developed impression and plan of care. Discussed with dictator. Agree with documentation, dictated as a scribe.
[2023-08-18 18:21] LABS: Glucose,Whole Blood 187 mg/dL (70-110)
[2023-08-18 20:43] LABS: Glucose,Whole Blood 111 mg/dL (70-110)
[2023-08-18] MEDS: EZETIMIBE 10 MG TAB PO SCH (20:58)
[2023-08-18] MEDS: ATORVASTATIN 80 MG TAB PO SCH (20:58)
[2023-08-19] MEDS: HYDROCORTISONE SUCCINATE 100 MG/2 ML VIAL IV SCH ×3 (00:21→15:29)
[2023-08-19] MEDS: IPRATROPIUM-ALBUTEROL 3 ML NEB INHALATION SCH ×5 (00:23→20:28)
--- NOTE | 2023-08-19 03:23 | PN ---
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 MMODL / IJN: [id number] /
[2023-08-19] MEDS: INSULIN ASPART (NovoLOG) 100 UNIT/ML VIAL SQ SCH ×6 (03:30→22:08)
[2023-08-19] MEDS: HYDROcodone/APAP 5-325MG 1 EACH TAB PO PRN ×2 (03:55→18:18)
[2023-08-19] MEDS: SODIUM CHLORIDE 0.45% 1,000 ML IV SCH ×3 (03:55→16:29)
[2023-08-19 04:00] LABS: Glucose,Whole Blood 202 mg/dL (70-110)
--- NOTE | 2023-08-19 04:47 | PN ---
PROGRESS NOTE SUBJECTIVE: Neptali Chilel is more awake, talking now. OBJECTIVE: CARDIOVASCULAR: S1, S2. LUNGS: Transmitted upper sounds. HEMATOLOGIC: Negative for Homans. PSYCH: Fair mood and affect. VITAL SIGNS: Temperature 97.4, respiratory rate 18, , pulse is low 90s, blood pressure is 102 to 115 over 60s to 70s. He is in ICU. The patient started to give appropriate answers. PLAN: Continue current treatment. Accu-Chek protocol. Monitor eating with his diabetes closely. Continue on sliding scale only due to hypoglycemia. Breathing treatments for COPD, metastatic lung cancer treatment, malnutrition treatment. Prognosis guarded. MMODL / IJN: [id number] /
[2023-08-19 06:48] LABS: Glucose,Whole Blood 120 mg/dL (70-110)
[2023-08-19 06:48] LABS: Anisocytosis Moderate; Basophils % (A) 0 %; Eosinophils % (A) 0 %; HCT 20.8 % (39.0-53.0); Lymphocytes # (A) 0.4 k/uL (1.0-4.8); Lymphocytes % (A) 4 %; MCV 97.2 fL (80.0-100.0); Macrocytosis Moderate; Mean Platelet Volume 7.3; Monocytes # (A) 0.3 k/uL (0-1.0); Monocytes % (A) 3 %; Neutrophils # (A) 9.4 k/uL (1.3-7.7); Neutrophils % (A) 92 %; Platelet Count 218 k/uL (150-450); RBC 2.14 m/uL (4.30-5.90); WBC 10.2 k/uL (3.8-10.6)
[2023-08-19] MEDS: MIDODRINE 5 MG TAB PO SCH ×3 (06:48→16:31)
[2023-08-19] MEDS: LEVOTHYROXINE 125 MCG TAB PO SCH (06:48)
[2023-08-19] MEDS: PANTOPRAZOLE 40 MG TABLET PO SCH (06:48)
[2023-08-19] MEDS: INSULIN DETEMIR (LEVEMIR) 100 UNIT/ML SYR SQ SCH (06:49)
[2023-08-19 06:50] LABS: HGB 7.1 gm/dL (13.0-17.5)
[2023-08-19 07:16] LABS: ALT 10 U/L (4-49); AST 25 U/L (17-59); African American GFR (CKD) >90 (>60 ml/min/1.73 sqM); Albumin 2.7 g/dL (3.5-5.0); Alkaline Phosphatase 123 U/L (38-126); Anion Gap 8 mmol/L; Blood Urea Nitrogen 13 mg/dL (9-20); Calcium 8.2 mg/dL (8.4-10.2); Carbon Dioxide 28 mmol/L (22-30); Chloride 98 mmol/L (98-107); Glucose 118 mg/dL (74-99); Non-African American GFR(CKD) >90 (>60 ml/min/1.73 sqM); Potassium 3.9 mmol/L (3.5-5.1); Sodium 134 mmol/L (137-145); Total Bilirubin 0.3 mg/dL (0.2-1.3); Total Protein 5.4 g/dL (6.3-8.2)
[2023-08-19] MEDS: BUDESONIDE 0.5 MG/2 ML NEBU INHALATION SCH ×2 (08:27→20:28)
[2023-08-19] MEDS: HEPARIN SODIUM,PORCINE 5,000 UNIT/ML 1 ML VIAL SQ SCH ×2 (08:30→22:08)
[2023-08-19] MEDS: ASPIRIN 81 MG PO SCH (08:31)
[2023-08-19] MEDS: GABAPENTIN 100 MG CAP PO SCH ×3 (08:31→22:08)
[2023-08-19] MEDS: CLOPIDOGREL 75 MG TAB PO SCH (08:31)
[2023-08-19] MEDS: MAGNESIUM OXIDE 400 MG TAB PO SCH (08:31)
[2023-08-19] MEDS: droNABinol 2.5 MG CAP PO SCH ×2 (08:35→22:08)
[2023-08-19] MEDS: CARBAMIDE PEROXIDE 6.5% DROPS 15 ML BTL BOTH EARS SCH ×2 (08:36→22:05)
[2023-08-19] MEDS: QUEtiapine 25 MG TAB PO SCH ×3 (08:39→22:07)
[2023-08-19] MEDS: buPROPion 75 MG TAB PO SCH ×2 (08:40→22:06)
--- NOTE | 2023-08-19 10:51 | P.PN ---
Subjective Patient is seen in follow-up for hyponatremia. Sodium level gradually improving up to 134 this morning. Blood sugars better controlled. Has Costa catheter for urinary retention. Nonoliguric. Doesn't like the food in the hospital. Vital signs are stable. General: Lethargic. HEENT: Head exam is unremarkable. On nasal cannula. LUNGS: No audible rhonchi or wheezes. HEART: Rate and Rhythm are regular. ABDOMEN: Nontender. EXTREMITITES: No edema. Objective - Vital Signs Vital signs: Vital Signs Temp 98 F 08/19/23 08:00 Pulse 92 08/19/23 08:29 Resp 10 L 08/19/23 08:00 BP 141/70 08/19/23 08:00 Pulse Ox 98 08/19/23 08:30 FiO2 Intake & Output 08/18/23 08/19/23 08/19/23 18:59 06:59 18:59 Intake Total 1366.330 722.400 6921 Output Total 1675 1480 500 Balance -308.670 -558.459 900 Weight 64.6 kg Intake: IV 1400 Sodium Chloride 0.45% 1, 1400 000 ml @ 100 mls/hr IV . Q10H TRACEY Rx#:[id number] Intake, IV Titration 1006.330 121.541 Amount Dexmedetomidine/0.9% NaCl 88.572 (Pmx) 400 mcg In Empty Bag 1 bag @ 0.2 MCG/KG/HR 3.49 mls/hr IV .Q24H TRACEY Rx#:[id number] Norepinephrine 4 mg In 217.758 21.541 Sodium Chloride 0.9% 250 ml @ 0.03 MCG/KG/MIN 7. 978 mls/hr IV .Q24H TRACEY Rx#:[id number] Sodium Chloride 0.45% 1, 600 100 000 ml @ 100 mls/hr IV . Q10H [facility]ACEY Rx#:[id number] ceFAZolin 2 gm In Sodium 100 Chloride 0.9% 50 ml @ 100 mls/hr IVPB Q8H [facility]ACEY Rx#: [id number] Oral 360 800 Output: Urine 1675 1480 500 Other: Voiding Method Indwelling Catheter Indwelling Catheter - Labs CBC & Chem 7: 08/19/23 05:29 08/19/23 05:29 Labs: Abnormal Lab Results - Last 24 Hours (Table) 08/18/23 08/18/23 08/18/23 Range/Units 11:18 14:41 16:52 RBC (4.30-5.90) m/uL Hgb (13.0-17.5) gm/dL Hct (39.0-53.0) % RDW (11.5-15.5) % Neutrophils # (1.3-7.7) k/uL Lymphocytes # (1.0-4.8) k/uL Sodium (137-145) mmol/L Glucose (74-99) mg/dL POC Glucose (mg/dL) 418 H 337 H 247 H (70-110) mg/dL Calcium (8.4-10.2) mg/dL Total Protein (6.3-8.2) g/dL Albumin (3.5-5.0) g/dL 08/18/23 08/18/23 08/18/23 Range/Units 17:30 18:19 20:42 RBC (4.30-5.90) m/uL Hgb (13.0-17.5) gm/dL Hct (39.0-53.0) % RDW (11.5-15.5) % Neutrophils # (1.3-7.7) k/uL Lymphocytes # (1.0-4.8) k/uL Sodium 131 L (137-145) mmol/L Glucose (74-99) mg/dL POC Glucose (mg/dL) 187 H 111 H (70-110) mg/dL Calcium (8.4-10.2) mg/dL Total Protein (6.3-8.2) g/dL Albumin (3.5-5.0) g/dL 08/19/23 08/19/23 08/19/23 Range/Units 03:57 05:29 05:29 RBC 2.14 L (4.30-5.90) m/uL Hgb 7.1 L D (13.0-17.5) gm/dL Hct 20.8 L (39.0-53.0) % RDW 21.0 H (11.5-15.5) % Neutrophils # 9.4 H (1.3-7.7) k/uL Lymphocytes # 0.4 L (1.0-4.8) k/uL Sodium 134 L (137-145) mmol/L Glucose 118 H (74-99) mg/dL POC Glucose (mg/dL) 202 H (70-110) mg/dL Calcium 8.2 L (8.4-10.2) mg/dL Total Protein 5.4 L (6.3-8.2) g/dL Albumin 2.7 L (3.5-5.0) g/dL 08/19/23 Range/Units 06:46 RBC (4.30-5.90) m/uL Hgb (13.0-17.5) gm/dL Hct (39.0-53.0) % RDW (11.5-15.5) % Neutrophils # (1.3-7.7) k/uL Lymphocytes # (1.0-4.8) k/uL Sodium (137-145) mmol/L Glucose (74-99) mg/dL POC Glucose (mg/dL) 120 H (70-110) mg/dL Calcium (8.4-10.2) mg/dL Total Protein (6.3-8.2) g/dL Albumin (3.5-5.0) g/dL Microbiology - Last 24 Hours (Table) 08/16/23 23:30 Blood Culture - Preliminary Blood 08/16/23 23:20 Blood Culture - Preliminary Blood Assessment and Plan Plan: Assessment: 1. 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 Also component of urinary retention. Sodium level 134 this morning. Urine sodium 111 and urine osmolality 430. TSH elevated at 18.7 this admission. 2. Metabolic acidosis secondary to ketoacidosis. Improved. 3. Hypothyroidism maintained on Synthroid. 4. Metastatic lung cancer. 5. Diabetes mellitus. 6. History of coronary artery disease. 7. Urinary retention. Costa catheter placed 08/17/2023. Plan: Maintain half-normal saline. Maintain midodrine. Hold for systolic blood pressure greater than 110. Add Flomax. Blood sugar control. Encouraged oral intake. Cortisol level will not be accurate as patient is already on Solu-Cortef. Consult urology for persistent urinary retention.
--- NOTE | 2023-08-19 12:02 | P.PN ---
Subjective Progress Note Date: 08/19/23 Principal diagnosis: Encephalopathy. I am seeing this patient in new consultation today 08/17/2023 in the intensive care unit after he presented from [facility] with altered mental status. Patient is a 63-year-old male with past medical history significant for metastatic lung cancer, pulmonary fibrosis, COPD, type 1 diabetes mellitus, hypertension, hyperlipidemia, pulmonary embolism, among other things. Patient does follow with his oncologist Dr. Heredia for management of his metastatic lung cancer, and had been receiving a combination of Carbolplatin/Alimta/Keytuda, but is on hold in light of his recent soft tissue abdominal well cellulitis/abscess. This reportedly developed from an old insulin pump subcutaneous site. Apparently, the patient was recently hospitalized at [facility] for abdominal wall cellulitis and hyponatremia. He also was found to have shingles, and started on antivirals. Patient was then discharged to [facility] rehab facility. At the outside facility, he was found to be confused. It was felt this correlated with his Linden administration, however, he was found to have abnormal blood glucose readings. on arrival to the emergency room, a nonenhanced brain CT did not show any acute intracranial abnormality. It did s how generalized atrophy and remote infarct/consult of the right cerebral hemisphere. Chest x-ray on arrival showed chronic fibrotic changeswithout any acute cardiopulmonary process. Patient is currently lying in bed, on 2 L/m nasal cannula, in no acute distress. He is still confused and having visual hallucinations. His sodium was found to be severely low at 115, and he was started on a hypertonic saline infusion which is currently running at 30 MLS per hour. He was also hypoglycemic in the emergency room, and started on a D10W. This is currently on hold, because the patient is now hyperglycemic.CBC on arrival showed a WBC count of 12.4, hemoglobin 8.6, hematocrit 23.7, platelets 205. Most recent BMP from around midnight showed a sodium 112, potassium 5, chloride 82, serum bicarb 19, BUN 17, creatinine 0.77, glucose 259. Serum osmolality was 244. Urine osmolality was 430. Urine sodium 111. hyponatremia is being managed by nephrology. TSH was elevated at 18.7 and free T4 0.58. Patie nt had reportedly been refusing his medications. UA not concerning for UTI. No documented fevers. Restarted on Cefazolin and Acyclovir. Patient is admitted to the intensive care unit. Progress note dated 08/18/2023. 63-year-old male seen yesterday in consultation, for mental status changes, in part related to hyponatremia. The patient has history of metastatic lung cancer, pulmonary fibrosis, COPD, diabetes, hypertension, hyperlipidemia, pulmonary embolism, and multiple other medical problems. The patient was admitted with a sodium of 112. Currently, his sodium is 127. He seen in the intensive care unit, room 253. Currently, he's on 2 L of oxygen. He is getting norepinephrine at 2 mcg/m, Precedex for agitation is 0.2 mcg/kg per hour. Saline running at 10 mL an hour. Seroquel, 25 mg 3 times a day for agitation. White count 13.1, hemoglobin 8.6, hematocrit 23.8, with a normal platelet count. Sodium 127, potassium 4.9, chlorides 91, CO2 18, anion gap 18, BUN 17, and creatinine 0.78. Progress note dated 08/19/2023. 63-year-old male seen in consultation a few days ago, for mental status changes, and hyponatremia. The patient is seen again in the intensive care unit, room 253. The patient has a history of metastatic lung cancer, pulmonary fibrosis, COPD, diabetes, hypertension, hyperlipidemia, pulmonary embolism, and other medical problems. Currently, his sodium is 134. He is currently on 2 L of oxygen. He is getting half-normal saline at 100 mL an hour. Norepinephrine has been weaned off. The patient's dexmedetomidine is also been off for some time. The patient clinically is doing much better. White count is 10.2, hemoglobin 7.1, hematocrit 20.8, and platelet count 218,000. Sodium 134, potassium 3.9, chlorides 98, CO2 28, BUN 13, creatinine 0.81. Albumin is 2.7. Blood cultures are negative. Objective - Vital Signs Vital signs: Vital Signs Temp 98 F 08/19/23 08:00 Pulse 93 08/19/23 11:00 Resp 15 08/19/23 11:00 BP 137/64 08/19/23 11:00 Pulse Ox 100 08/19/23 11:00 FiO2 Intake & Output 08/18/23 08/19/23 08/19/23 18:59 06:59 18:59 Intake Total 1366.330 676.131 0335 Output Total 1675 1480 850 Balance -308.670 -558.459 750 Weight 64.6 kg 64.6 kg Intake: IV 1600 Sodium Chloride 0.45% 1, 1600 000 ml @ 100 mls/hr IV . Q10H TRACEY Rx#:[id number] Intake, IV Titration 1006.330 121.541 Amount Dexmedetomidine/0.9% NaCl 88.572 (Pmx) 400 mcg In Empty Bag 1 bag @ 0.2 MCG/KG/HR 3.49 mls/hr IV .Q24H TRACEY Rx#:[id number] Norepinephrine 4 mg In 217.758 21.541 Sodium Chloride 0.9% 250 ml @ 0.03 MCG/KG/MIN 7. 978 mls/hr IV .Q24H TRACEY Rx#:[id number] Sodium Chloride 0.45% 1, 600 100 000 ml @ 100 mls/hr IV . Q10H TRACEY Rx#:[id number] ceFAZolin 2 gm In Sodium 100 Chloride 0.9% 50 ml @ 100 mls/hr IVPB Q8H TRACEY Rx#: [id number] Oral 360 800 Output: Urine 1675 1480 850 Other: Voiding Method Indwelling Catheter Indwelling Catheter Indwelling Catheter - Exam No acute distress, much more awake and alert, currently on 2 L of oxygen. HEENT examination is grossly unremarkable. Mucous membranes are moist. No oral lesions. Neck supple. Full range of motion. No adenopathy thyromegaly or neck vein di stention. Cardiovascular examination reveals regular rhythm rate. S1-S2 normal. No S3 or S4. No discernible murmur noted. Heart rate 93 bpm. Lungs reveal scattered bilateral rhonchi. No wheezes or crackles. Breath sounds equal. Saturations are 98% on 2 L. Abdomen soft bowel sounds are heard. No masses or tenderness. Extremities are intact. No cyanosis clubbing or edema. Skin is without rash or lesion. Neurologic examination is brief but nonfocal. - Labs CBC & Chem 7: 08/19/23 05:29 08/19/23 05:29 Labs: Abnormal Lab Results - Last 24 Hours (Table) 08/18/23 08/18/23 08/18/23 Range/Units 14:41 16:52 17:30 RBC (4.30-5.90) m/uL Hgb (13.0-17.5) gm/dL Hct (39.0-53.0) % RDW (11.5-15.5) % Neutrophils # (1.3-7.7) k/uL Lymphocytes # (1.0-4.8) k/uL Sodium 131 L (137-145) mmol/L Glucose (74-99) mg/dL POC Glucose (mg/dL) 337 H 247 H (70-110) mg/dL Calcium (8.4-10.2) mg/dL Total Protein (6.3-8.2) g/dL Albumin (3.5-5.0) g/dL 08/18/23 08/18/23 08/19/23 Range/Units 18:19 20:42 03:57 RBC (4.30-5.90) m/uL Hgb (13.0-17.5) gm/dL Hct (39.0-53.0) % RDW (11.5-15.5) % Neutrophils # (1.3-7.7) k/uL Lymphocytes # (1.0-4.8) k/uL Sodium (137-145) mmol/L Glucose (74-99) mg/dL POC Glucose (mg/dL) 187 H 111 H 202 H (70-110) mg/dL Calcium (8.4-10.2) mg/dL Total Protein (6.3-8.2) g/dL Albumin (3.5-5.0) g/dL 08/19/23 08/19/23 08/19/23 Range/Units 05:29 05:29 06:46 RBC 2.14 L (4.30-5.90) m/uL Hgb 7.1 L D (13.0-17.5) gm/dL Hct 20.8 L (39.0-53.0) % RDW 21.0 H (11.5-15.5) % Neutrophils # 9.4 H (1.3-7.7) k/uL Lymphocytes # 0.4 L (1.0-4.8) k/uL Sodium 134 L (137-145) mmol/L Glucose 118 H (74-99) mg/dL POC Glucose (mg/dL) 120 H (70-110) mg/dL Calcium 8.2 L (8.4-10.2) mg/dL Total Protein 5.4 L (6.3-8.2) g/dL Albumin 2.7 L (3.5-5.0) g/dL Microbiology - Last 24 Hours (Table) 08/16/23 23:30 Blood Culture - Preliminary Blood 08/16/23 23:20 Blood Culture - Preliminary Blood Assessment and Plan Assessment: Severe hyponatremia, suspect SIADH. Hypoglycemia, improved. Anion gap metabolic acidosis. Hypothyroidism. Hyponatremic encephalopathy. Chronic normocytic normochromic anemia. Herpes zoster. History of abdominal wall cellulitis. Leukocytosis. Metastatic lung cancer. Chronic pulmonary fibrosis. Chronic obstructive pulmonary disease. Chronic hypoxemic respiratory failure. History of pulmonary embolism, status post IVC filter. Diabetes mellitus, insulin-dependent. Hyperlipidemia. Remote CVA. Coronary artery disease, with previous coronary stents. History of pancreatitis. Chronic pain. Peripheral neuropathy. History of migraines. Plan: Plan dated 08/18/2023. The patient remains in the intensive care unit. He remains on norepinephrine at 2 mcg/m. Sodium is up to 127. The patient's getting saline at 10 mL an hour. He no longer is on 3% saline. The patient will get Seroquel 25 mg 3 times a day for agitation. They dexmedetomidine was started at 2:50 AM, and I told the nurse that she can use it for up to 24 hours. Labs, x-rays, medications are reviewed. The patient's prognosis remains guarded. He remains on Ancef. We will continue to follow the patient, make recommendations along the way. Plan dated 08/19/2023. The patient is seen today in room 253. He is on 2 L of oxygen. Norepinephrine has been weaned off. His dexmedetomidine has been turned off. The patient was started on Seroquel yesterday, 25 mg 3 times a day. Labs, x-rays, and medications are reviewed. Is getting half-normal saline at 100 mL an hour. His sodium is up to 134. His initial sodium was 112. The patient is stable for transfer out of the intensive care unit. We will attempt to get him to a general medical floor. Time with Patient: Less than 30
[2023-08-19] MEDS: NOREPINEPHRINE 4 MG in SODIUM CHLORIDE 0.9% 250 ML IV SCH (12:09)
[2023-08-19] MEDS: TAMSULOSIN 0.4 MG CAP.ER.24H PO SCH (12:13)
[2023-08-19 12:16] LABS: Glucose,Whole Blood 306 mg/dL (70-110)
--- NOTE | 2023-08-19 15:20 | P.PN ---
Subjective Progress Note Date: 08/19/23 Principal diagnosis: Metastatic NSCLC In f/u today pt much more alert than yesterday, irritated by questions that are meant to evaluate his orientation. When asked about any areas of the body he states that it hurts. She did eat a small portion of his breakfast. Objective - Vital Signs Vital signs: Vital Signs Temp 98 F 08/19/23 08:00 Pulse 93 08/19/23 11:00 Resp 15 08/19/23 11:00 BP 137/64 08/19/23 11:00 Pulse Ox 100 08/19/23 11:00 FiO2 Intake & Output 08/18/23 08/19/23 08/19/23 18:59 06:59 18:59 Intake Total 1366.330 078.109 2289 Output Total 1675 1480 850 Balance -308.670 -558.459 750 Weight 64.6 kg 64.6 kg Intake: IV 1600 Sodium Chloride 0.45% 1, 1600 000 ml @ 100 mls/hr IV . Q10H TRACEY Rx#:[id number] Intake, IV Titration 1006.330 121.541 Amount Dexmedetomidine/0.9% NaCl 88.572 (Pmx) 400 mcg In Empty Bag 1 bag @ 0.2 MCG/KG/HR 3.49 mls/hr IV .Q24H TRACEY Rx#:[id number] Norepinephrine 4 mg In 217.758 21.541 Sodium Chloride 0.9% 250 ml @ 0.03 MCG/KG/MIN 7. 978 mls/hr IV .Q24H TRACEY Rx#:[id number] Sodium Chloride 0.45% 1, 600 100 000 ml @ 100 mls/hr IV . Q10H TRACEY Rx#:[id number] ceFAZolin 2 gm In Sodium 100 Chloride 0.9% 50 ml @ 100 mls/hr IVPB Q8H TRACEY Rx#: [id number] Oral 360 800 Output: Urine 1675 1480 850 Other: Voiding Method Indwelling Catheter Indwelling Catheter Indwelling Catheter - Constitutional General appearance: Present: average body habitus, cooperative, no acute distress - EENT Eyes: Present: anicteric sclerae, EOMI ENT: Present: hearing grossly normal - Cardiovascular Rhythm: regular - Peripheral edema leg Peripheral Edema: bilateral: None - Integumentary Integumentary: Present: pale - Neurologic Neurologic: Present: CNII-XII intact (Grossly) - Musculoskeletal Musculoskeletal: Present: generalized weakness - Psychiatric Psychiatric: Present: A&O x's 3 - Labs CBC & Chem 7: 08/19/23 05:29 08/19/23 05:29 Labs: Abnormal Lab Results - Last 24 Hours (Table) 08/18/23 08/18/23 08/18/23 Range/Units 14:41 16:52 17:30 RBC (4.30-5.90) m/uL Hgb (13.0-17.5) gm/dL Hct (39.0-53.0) % RDW (11.5-15.5) % Neutrophils # (1.3-7.7) k/uL Lymphocytes # (1.0-4.8) k/uL Sodium 131 L (137-145) mmol/L Glucose (74-99) mg/dL POC Glucose (mg/dL) 337 H 247 H (70-110) mg/dL Calcium (8.4-10.2) mg/dL Total Protein (6.3-8.2) g/dL Albumin (3.5-5.0) g/dL 08/18/23 08/18/23 08/19/23 Range/Units 18:19 20:42 03:57 RBC (4.30-5.90) m/uL Hgb (13.0-17.5) gm/dL Hct (39.0-53.0) % RDW (11.5-15.5) % Neutrophils # (1.3-7.7) k/uL Lymphocytes # (1.0-4.8) k/uL Sodium (137-145) mmol/L Glucose (74-99) mg/dL POC Glucose (mg/dL) 187 H 111 H 202 H (70-110) mg/dL Calcium (8.4-10.2) mg/dL Total Protein (6.3-8.2) g/dL Albumin (3.5-5.0) g/dL 08/19/23 08/19/23 08/19/23 Range/Units 05:29 05:29 06:46 RBC 2.14 L (4.30-5.90) m/uL Hgb 7.1 L D (13.0-17.5) gm/dL Hct 20.8 L (39.0-53.0) % RDW 21.0 H (11.5-15.5) % Neutrophils # 9.4 H (1.3-7.7) k/uL Lymphocytes # 0.4 L (1.0-4.8) k/uL Sodium 134 L (137-145) mmol/L Glucose 118 H (74-99) mg/dL POC Glucose (mg/dL) 120 H (70-110) mg/dL Calcium 8.2 L (8.4-10.2) mg/dL Total Protein 5.4 L (6.3-8.2) g/dL Albumin 2.7 L (3.5-5.0) g/dL Microbiology - Last 24 Hours (Table) 08/16/23 23:30 Blood Culture - Preliminary Blood 08/16/23 23:20 Blood Culture - Preliminary Blood Assessment and Plan (1) Anemia Current Visit: Yes Status: Acute Priority: Medium Code(s): D64.9 - ANEMIA, UNSPECIFIED SNOMED Code(s): 154881606 (2) Hypoglycemia Current Visit: Yes Status: Resolved Priority: High Code(s): E16.2 - HYPOGLYCEMIA, UNSPECIFIED SNOMED Code(s): 076660440 (3) Hyponatremia Current Visit: Yes Status: Resolved Priority: High Code(s): E87.1 - HYPO-OSMOLALITY AND HYPONATREMIA SNOMED Code(s): 80900311 (4) Adenocarcinoma of lung, stage 4 Current Visit: Yes Status: Chronic Priority: High Code(s): C34.90 - MALIGNANT NEOPLASM OF UNSP PART OF UNSP BRONCHUS OR LUNG SNOMED Code(s): 437609123 Plan: Uncontrolled diabetes -Patient spent nearly 3 weeks at [facility], with multiple adjustments to his medications to try and control his blood sugars. He was just discharged last week -Cont to be worked on currently -CBG much Improved. -Discussed case with Dietitian who made adjustments to patient's diet. Hyponatremia-Resolved -Recurrent, severe -Appreciated Nephrology following, medications ordered. Metastatic non-small cell lung cancer -Patient has not been out of the hospital long enough to proceed forward with any treatment -Last imaging was just about a month ago, no evidence to suggest significant disease progression, some areas were questionable for some slight progress. Olga to be a pseudo-progression from immunotherapy. -No treatment will be planned until pt has recovered and had a chance to rehabilitate. -Immunotherapy-related side effects have been worked up extensively, all results have been normal when assessed. ACTH normal. Nothing to suggest immunotherapy as a cause for pt current condition -Once pt is discharged and rehabilitated, restaging imaging will be ordered. Anemia -Multifactorial including inflammation, prolonged illness/hospitalization. -Hemoglobin 7.1 today, significant change from 8.6 yesterday. No reported bleeding from patient, no documented bleeding in the medical record. Recheck CBC in the a.m. -Transfuse for hemoglobin less than 7 or if patient is symptomatic -Anemia workup ordered attests: I seen and examined patient, performed H&P, developed impression and plan of care. Discussed with dictator. Agree with documentation, dictated as a scribe.
[2023-08-19 15:43] LABS: Glucose,Whole Blood 151 mg/dL (70-110)
[2023-08-19 16:05] LABS: Reticulocyte % 4.2 % (0.5-2.0)
[2023-08-19 18:20] LABS: Glucose,Whole Blood 104 mg/dL (70-110)
[2023-08-19 20:16] LABS: Glucose,Whole Blood 144 mg/dL (70-110)
[2023-08-19 20:47] LABS: % Iron Saturation 36.18 (15.00-50.00)
[2023-08-19] MEDS: ATORVASTATIN 80 MG TAB PO SCH (22:07)
[2023-08-19] MEDS: EZETIMIBE 10 MG TAB PO SCH (22:07)
[2023-08-20 05:42] LABS: Glucose,Whole Blood 232 mg/dL (70-110)
[2023-08-20 05:42] LABS: Glucose,Whole Blood 301 mg/dL (70-110)
[2023-08-20] MEDS: IPRATROPIUM-ALBUTEROL 3 ML NEB INHALATION SCH ×4 (06:07→20:02)
[2023-08-20] MEDS: HYDROCORTISONE SUCCINATE 100 MG/2 ML VIAL IV SCH ×3 (06:25→17:12)
[2023-08-20] MEDS: INSULIN ASPART (NovoLOG) 100 UNIT/ML VIAL SQ SCH ×7 (06:26→22:58)
[2023-08-20] MEDS: SODIUM CHLORIDE 0.45% 1,000 ML IV SCH ×3 (06:26→21:40)
[2023-08-20] MEDS: LEVOTHYROXINE 125 MCG TAB PO SCH (07:48)
[2023-08-20] MEDS: BUDESONIDE 0.5 MG/2 ML NEBU INHALATION SCH ×2 (07:55→20:03)
[2023-08-20 08:13] LABS: Glucose,Whole Blood 303 mg/dL (70-110)
--- NOTE | 2023-08-20 08:46 | P.PN ---
Subjective Progress Note Date: 08/20/23 I am seeing this patient in new consultation today 08/17/2023 in the intensive care unit after he presented from [facility] with altered mental status. Patient is a 63-year-old male with past medical history significant for metastatic lung cancer, pulmonary fibrosis, COPD, type 1 diabetes mellitus, hypertension, hyperlipidemia, pulmonary embolism, among other things. Patient does follow with his oncologist Dr. Heredia for management of his metastatic lung cancer, and had been receiving a combination of Carbolplatin/Alimta/Keytuda, but is on hold in light of his recent soft tissue abdominal well cellulitis/abscess. This reportedly developed from an old insulin pump subcutaneous site. Appa rently, the patient was recently hospitalized at [facility] for abdominal wall cellulitis and hyponatremia. He also was found to have shingles, and started on antivirals. Patient was then discharged to [facility] rehab facility. At the outside facility, he was found to be confused. It was felt this correlated with his [place] administration, however, he was found to have abnormal blood glucose readings. on arrival to the emergency room, a nonenhanced brain CT did not show any acute intracranial abnormality. It did show generalized atrophy and remote infarct/consult of the right cerebral hemisphere. Chest x-ray on arrival showed chronic fibrotic changeswithout any acute cardiop ulmonary process. Patient is currently lying in bed, on 2 L/m nasal cannula, in no acute distress. He is still confused and having visual hallucinations. His sodium was found to be severely low at 115, and he was started on a hypertonic saline infusion which is currently running at 30 MLS per hour. He was also hypoglycemic in the emergency room, and started on a D10W. This is currently on hold, because the patient is now hyperglycemic.CBC on arrival showed a WBC count of 12.4, hemoglobin 8.6, hematocrit 23.7, platelets 205. Most recent BMP from around midnight showed a sodium 112, potassium 5, chloride 82, serum bicarb 19, BUN 17, creatinine 0.77, glucose 259. Serum osmolality was 244. Urine osmolality was 430. Urine sodium 111. hyponatremia is being managed by nephrology. TSH was elevated at 18.7 and free T4 0.58. Patient had reportedly been refusing his medications. UA not concerning for UTI. No documented fevers. Restarted on Cefazolin and Acyclovir. Patient is admitted to the intensive care unit. Progress note dated 08/18/2023. 63-year-old male seen yesterday in consultation, for mental status changes, in part related to hyponatremia. The patient has history of metastatic lung cancer, pulmonary fibrosis, COPD, diabetes, hypertension, hyperlipidemia, pulmonary embolism, and multiple other medical problems. The patient was admitted with a sodium of 112. Currently, his sodium is 127. He seen in the intensive care unit, room 253. Currently, he's on 2 L of oxygen. He is getting norepinephrine at 2 mcg/m, Precedex for agitation is 0.2 mcg/kg per hour. Saline running at 10 mL an hour. Seroquel, 25 mg 3 times a day for agitation. White count 13.1, hemoglobin 8.6, hematocrit 23.8, with a normal platelet count. Sodium 127, potassium 4.9, chlorides 91, CO2 18, anion gap 18, BUN 17, and creatinine 0.78. Progress note dated 08/19/2023. 63-year-old male seen in consultation a few days ago, for mental status changes, and hyponatremia. The patient is seen again in the intensive care unit, room 253. The patient has a history of metastatic lung cancer, pulmonary fibrosis, COPD, diabetes, hypertension, hyperlipidemia, pulmonary embolism, and other medical problems. Currently, his sodium is 134. He is currently on 2 L of oxygen. He is getting half-normal saline at 100 mL an hour. Norepinephrine has been weaned off. The patient's dexmedetomidine is also been off for some time. The patient clinically is doing much better. White count is 10.2, hemoglobin 7.1, hematocrit 20.8, and platelet count 218,000. Sodium 134, potassium 3.9, chlorides 98, CO2 28, BUN 13, creatinine 0.81. Albumin is 2.7. Blood cultures are negative. The patient is seen today 08/20/2023 in follow-up on the regular medical floor. He is currently resting in bed. Awake and alert in no acute distress. He is maintaining O2 saturations in the 90s on 2 L/m per nasal cannula. He has 0.45% normal saline at 100 ML's per hour. His current sodium is 134. Blood cultures revealed no growth. Blood sugar 232. He is continued on DuoNeb inhalations, Pulmicort inhalations. He remains on Solu-Cortef per nephrology. Todays labs are pending. Objective - Vital Signs Vital signs: Vital Signs Temp 98.2 F 08/20/23 07:31 Pulse 104 H 08/20/23 08:05 Resp 20 08/20/23 07:31 BP 138/74 08/20/23 07:31 Pulse Ox 97 08/20/23 07:55 FiO2 Intake & Output 08/19/23 08/20/23 08/20/23 18:59 06:59 18:59 Intake Total 2900 1000 Output Total 1950 2100 Balance 950 -1100 Weight 64.6 kg Intake: IV 2300 Sodium Chloride 0.45% 1, 2300 000 ml @ 100 mls/hr IV . Q10H [facility] Rx#:[id number] Oral 600 1000 Output: Urine 1950 2100 Other: Voiding Method Indwelling Catheter Indwelling Catheter - Exam GENERAL EXAM: Alert but confused at times, 63-year-old male, resting comfortably in bed, on liters nasal cannula. HEAD: Normocephalic and atraumatic EYES: Normal reaction of pupils, equal size. NOSE: Clear with pink turbinates. THROAT: No erythema or exudates. NECK: No masses, no JVD. CHEST: No chest wall deformity. There is a right chest Mediport, accessed LUNGS: Equal air entry with inspiratory crackles heard at the right lower base. No wheezes, rhonchi, or focal dullness. CVS: S1 and S2 normal with no audible murmur, regular rhythm. No extra heart sounds ABDOMEN: No hepatosplenomegaly, active bowel sounds, no guarding or rigidity. SPINE: No scoliosis or deformity SKIN: right upper arm open ulcerations CENTRAL NERVOUS SYSTEM: No focal deficits, tone is normal in all 4 extremities. EXTREMITIES: There is no peripheral edema, clubbing, or cyanosis. Peripheral pulses are intact. - Labs CBC & Chem 7: 08/19/23 05:29 08/19/23 05:29 Labs: Abnormal Lab Results - Last 24 Hours (Table) 08/19/23 08/19/23 08/19/23 Range/Units 12:15 15:21 15:21 Retic Count 4.2 H (0.5-2.0) % POC Glucose (mg/dL) 306 H (70-110) mg/dL Transferrin 176.0 L (204.0-354.0) mg/dL Ferritin 1124.0 H (22.0-322.0) ng/mL 08/19/23 08/19/23 08/20/23 Range/Units 15:41 20:10 00:12 Retic Count (0.5-2.0) % POC Glucose (mg/dL) 151 H 144 H 301 H (70-110) mg/dL Transferrin (204.0-354.0) mg/dL Ferritin (22.0-322.0) ng/mL 08/20/23 08/20/23 Range/Units 04:02 08:11 Retic Count (0.5-2.0) % POC Glucose (mg/dL) 232 H 303 H (70-110) mg/dL Transferrin (204.0-354.0) mg/dL Ferritin (22.0-322.0) ng/mL Microbiology - Last 24 Hours (Table) 08/16/23 23:30 Blood Culture - Preliminary Blood 08/16/23 23:20 Blood Culture - Preliminary Blood Assessment and Plan Assessment: Severe hyponatremia, suspect SIADH. Improving on current sodium 134 Hypoglycemia, improved. Currently hyperglycemic Anion gap metabolic acidosis Hypothyroidism Hyponatremic encephalopathy Chronic normocytic normochromic anemia Herpes zoster History of abdominal wall cellulitis Leukocytosis Metastatic lung cancer Chronic pulmonary fibrosis Chronic obstructive pulmonary disease Chronic hypoxemic respiratory failure History of pulmonary embolism, status post IVC filter Diabetes mellitus, insulin-dependent Hyperlipidemia Remote CVA Coronary artery disease, with previous coronary stents History of pancreatitis Chronic pain Peripheral neuropathy History of migraines Plan: The patient was seen and evaluated Medications reviewed Most recent sodium 134 Remains on 0.45% normal saline at 100 ML's per hour Remains on Solu-Cortef Nephrology is following Titrate down the FiO2 as tolerated We will continue to follow This patient was seen independently by the nurse practitioner I have personally seen and examined the patient, performed the documentation and the assessment and plan as written. Number of minutes spent on the visit: 20.
[2023-08-20] MEDS: ASPIRIN 81 MG PO SCH (08:56)
[2023-08-20] MEDS: droNABinol 2.5 MG CAP PO SCH ×2 (08:56→21:31)
[2023-08-20] MEDS: GABAPENTIN 100 MG CAP PO SCH ×3 (08:56→21:31)
[2023-08-20] MEDS: TAMSULOSIN 0.4 MG CAP.ER.24H PO SCH (08:56)
[2023-08-20] MEDS: CLOPIDOGREL 75 MG TAB PO SCH (08:56)
[2023-08-20] MEDS: QUEtiapine 25 MG TAB PO SCH ×3 (08:57→21:31)
[2023-08-20] MEDS: MAGNESIUM OXIDE 400 MG TAB PO SCH (08:57)
[2023-08-20] MEDS: HEPARIN SODIUM,PORCINE 5,000 UNIT/ML 1 ML VIAL SQ SCH ×2 (08:57→21:31)
[2023-08-20] MEDS: PANTOPRAZOLE 40 MG TABLET PO SCH (08:57)
[2023-08-20] MEDS: INSULIN DETEMIR (LEVEMIR) 100 UNIT/ML SYR SQ SCH (08:58)
[2023-08-20] MEDS: CARBAMIDE PEROXIDE 6.5% DROPS 15 ML BTL BOTH EARS SCH ×2 (09:05→21:32)
[2023-08-20] MEDS: MIDODRINE 5 MG TAB PO SCH ×3 (09:19→17:04)
[2023-08-20] MEDS: buPROPion 75 MG TAB PO SCH ×2 (09:20→21:43)
[2023-08-20 10:25] LABS: Glucose,Whole Blood 295 mg/dL (70-110)
--- NOTE | 2023-08-20 12:15 | P.PN ---
Subjective Patient is seen in follow-up for hyponatremia. Sodium level gradually improving up to 134 yesterday. Blood glucose 295 this morning. Has Costa catheter for urinary retention. Nonoliguric. Vital signs are stable. General: Lethargic. HEENT: Head exam is unremarkable. On nasal cannula. LUNGS: No audible rhonchi or wheezes. HEART: Rate and Rhythm are regular. ABDOMEN: Nontender. EXTREMITITES: No edema. Objective - Vital Signs Vital signs: Vital Signs Temp 98.2 F 08/20/23 07:31 Pulse 100 08/20/23 12:08 Resp 20 08/20/23 07:31 BP 138/74 08/20/23 07:31 Pulse Ox 97 08/20/23 07:55 FiO2 Intake & Output 08/19/23 08/20/23 08/20/23 18:59 06:59 18:59 Intake Total 2900 1000 Output Total 1950 2100 1300 Balance 950 -1100 -1300 Weight 64.6 kg 54.5 kg Intake: IV 2300 Sodium Chloride 0.45% 1, 2300 000 ml @ 100 mls/hr IV . Q10H [facility] Rx#:[id number] Oral 600 1000 Output: Urine 1950 2100 1300 Other: Voiding Method Indwelling Catheter Indwelling Catheter Indwelling Catheter - Labs CBC & Chem 7: 08/19/23 05:29 08/19/23 05:29 Labs: Abnormal Lab Results - Last 24 Hours (Table) 08/19/23 08/19/23 08/19/23 Range/Units 12:15 15:21 15:21 Retic Count 4.2 H (0.5-2.0) % POC Glucose (mg/dL) 306 H (70-110) mg/dL Transferrin 176.0 L (204.0-354.0) mg/dL Ferritin 1124.0 H (22.0-322.0) ng/mL 08/19/23 08/19/23 08/20/23 Range/Units 15:41 20:10 00:12 Retic Count (0.5-2.0) % POC Glucose (mg/dL) 151 H 144 H 301 H (70-110) mg/dL Transferrin (204.0-354.0) mg/dL Ferritin (22.0-322.0) ng/mL 08/20/23 08/20/23 08/20/23 Range/Units 04:02 08:11 10:23 Retic Count (0.5-2.0) % POC Glucose (mg/dL) 232 H 303 H 295 H (70-110) mg/dL Transferrin (204.0-354.0) mg/dL Ferritin (22.0-322.0) ng/mL Microbiology - Last 24 Hours (Table) 08/16/23 23:30 Blood Culture - Preliminary Blood 08/16/23 23:20 Blood Culture - Preliminary Blood Assessment and Plan Plan: Assessment: 1. 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 Also component of urinary retention. Sodium level 134 yesterday. Urine sodium 111 and urine osmolality 430. TSH elevated at 18.7 this admission. 2. Metabolic acidosis secondary to ketoacidosis. Improved. 3. Hypothyroidism maintained on Synthroid. 4. Metastatic lung cancer. 5. Diabetes mellitus. 6. History of coronary artery disease. 7. Urinary retention. Costa catheter placed 08/17/2023. On Flomax. Urology consulted. Plan: Maintain half-normal saline. Hold midodrine for systolic blood pressure greater than 110. Blood sugar control. Encouraged oral intake. Cortisol level will not be accurate as patient is already on Solu-Cortef. Morning labs pending.
[2023-08-20 12:40] LABS: African American GFR (CKD) >90 (>60 ml/min/1.73 sqM); Anion Gap 10 mmol/L; Blood Urea Nitrogen 11 mg/dL (9-20); Calcium 8.4 mg/dL (8.4-10.2); Carbon Dioxide 26 mmol/L (22-30); Chloride 98 mmol/L (98-107); Glucose 230 mg/dL (74-99); Non-African American GFR(CKD) >90 (>60 ml/min/1.73 sqM); Sodium 134 mmol/L (137-145)
[2023-08-20 12:49] LABS: Potassium 3.8 mmol/L (3.5-5.1)
[2023-08-20 13:10] LABS: Glucose,Whole Blood 199 mg/dL (70-110)
--- NOTE | 2023-08-20 14:45 | P.PN ---
Subjective Progress Note Date: 08/20/23 Principal diagnosis: Metastatic NSCLC. Currently admitted for hyponatremia and highly variable blood sugars In f/u today pt back to baseline mental status. He denies any bleeding, shortness of breath. He is very frustrated as he does not understand what is going on with him. Objective - Vital Signs Vital signs: Vital Signs Temp 98.3 F 08/20/23 11:55 Pulse 100 08/20/23 12:18 Resp 18 08/20/23 11:55 BP 146/74 08/20/23 11:55 Pulse Ox 93 L 08/20/23 11:55 FiO2 Intake & Output 08/19/23 08/20/23 08/20/23 18:59 06:59 18:59 Intake Total 2900 1000 Output Total 1950 2100 1300 Balance 950 -1100 -1300 Weight 64.6 kg 54.5 kg Intake: IV 2300 Sodium Chloride 0.45% 1, 2300 000 ml @ 100 mls/hr IV . Q10H [facility] Rx#:[id number] Oral 600 1000 Output: Urine 1950 2100 1300 Other: Voiding Method Indwelling Catheter Indwelling Catheter Indwelling Catheter - Constitutional General appearance: Present: cooperative, mild distress, thin - EENT Eyes: Present: anicteric sclerae, EOMI ENT: Present: hearing grossly normal - Respiratory Respiratory: bilateral: CTA - Cardiovascular Rhythm: regular - Peripheral edema leg Peripheral Edema: bilateral: None - Neurologic Neurologic: Present: CNII-XII intact - Musculoskeletal Musculoskeletal: Present: generalized weakness - Psychiatric Psychiatric: Present: A&O x's 3, appropriate affect, intact judgment & insight - Labs CBC & Chem 7: 08/19/23 05:29 08/20/23 11:08 Labs: Abnormal Lab Results - Last 24 Hours (Table) 08/19/23 08/19/23 08/19/23 Range/Units 15:21 15:21 15:41 Retic Count 4.2 H (0.5-2.0) % Sodium (137-145) mmol/L Glucose (74-99) mg/dL POC Glucose (mg/dL) 151 H (70-110) mg/dL Transferrin 176.0 L (204.0-354.0) mg/dL Ferritin 1124.0 H (22.0-322.0) ng/mL 08/19/23 08/20/23 08/20/23 Range/Units 20:10 00:12 04:02 Retic Count (0.5-2.0) % Sodium (137-145) mmol/L Glucose (74-99) mg/dL POC Glucose (mg/dL) 144 H 301 H 232 H (70-110) mg/dL Transferrin (204.0-354.0) mg/dL Ferritin (22.0-322.0) ng/mL 08/20/23 08/20/23 08/20/23 Range/Units 08:11 10: 11:08 Retic Count (0.5-2.0) % Sodium 134 L (137-145) mmol/L Glucose 230 H (74-99) mg/dL POC Glucose (mg/dL) 303 H 295 H (70-110) mg/dL Transferrin (204.0-354.0) mg/dL Ferritin (22.0-322.0) ng/mL 08/20/23 Range/Units 13:07 Retic Count (0.5-2.0) % Sodium (137-145) mmol/L Glucose (74-99) mg/dL POC Glucose (mg/dL) 199 H (70-110) mg/dL Transferrin (204.0-354.0) mg/dL Ferritin (22.0-322.0) ng/mL Microbiology - Last 24 Hours (Table) 08/16/23 23:30 Blood Culture - Preliminary Blood 08/16/23 23:20 Blood Culture - Preliminary Blood Assessment and Plan (1) Anemia Current Visit: Yes Status: Acute Priority: Medium Code(s): D64.9 - ANEMIA, UNSPECIFIED SNOMED Code(s): 287241572 (2) Hypoglycemia Current Visit: Yes Status: Resolved Priority: High Code(s): E16.2 - HYPOGLYCEMIA, UNSPECIFIED SNOMED Code(s): 454525291 (3) Hyponatremia Current Visit: Yes Status: Resolved Priority: High Code(s): E87.1 - HYPO- OSMOLALITY AND HYPONATREMIA SNOMED Code(s): 66779400 (4) Adenocarcinoma of lung, stage 4 Current Visit: Yes Status: Chronic Priority: High Code(s): C34.90 - MALIGN ANT NEOPLASM OF UNSP PART OF UNSP BRONCHUS OR LUNG SNOMED Code(s): 557584689 Plan: Uncontrolled diabetes -Patient spent nearly 3 weeks at [facility], with multiple adjustments to his medications to try and control his blood sugars. He was just discharged last week -Meds continue to be adjusted Hyponatremia-Resolved -Nephrology following Metastatic non-small cell lung cancer -Patient has not been out of the hospital long enough to proceed forward with any treatment -Last imaging was just about 6 weeks ago. There was no evidence of disease progression, some areas were questionable for some slight progress. [place] to be a pseudo-progression from immunotherapy. Plan was to cont on treatment and reassess after 3 more cycles -No treatment will be planned until pt has recovered and rehabilitated. -Immunotherapy-related side effects have been worked up extensively, all results have been normal when assessed. ACTH normal. Nothing to suggest immunotherapy as a cause for pt current condition -Once pt is discharged and rehabilitated -May have to restage prior to resuming any treatment, depending on how much time patient spends in rehabilitation. Anemia -Multifactorial including inflammation, prolonged illness/hospitalization. -Anemia workup most consistent with anemia of inflammation, saturation is normal. No deficiency to be supplemented at this time. -Forgot to order CBC for today, CBC ordered for the a.m. -Transfuse for hemoglobin less than 7
[2023-08-20 17:55] LABS: Glucose,Whole Blood 164 mg/dL (70-110)
--- NOTE | 2023-08-20 20:08 | P.GSCN ---
History of Present Illness Consult date: 08/20/23 Reason for Consult: Urinary retention Requesting physician: Axel Porter History of present illness: The patient is a 63-year-old white male with multiple medical problems. He takes Xarelto for a pulmonary embolus. Earlier this year, he was found to have a right cerebellar mass. He underwent craniotomy with resection of the mass, revealing adenocarcinoma of pulmonary origin. He has been treated with chemoradiation and immunotherapy. He was recently hospitalized at [facility] and is now admitted with hyponatremia and hypoglycemia. He has been found to be in urinary retention, and underwent Costa catheter placement on 08/17/2023. CT scan performed 07/13/2023 showed the kidneys to be of normal appearance. The bladder was at least moderately distended at that time. Review of Systems ROS unobtainable: due to mental status Past Medical History Past Medical History: Coronary Artery Disease (CAD), Cancer, Heart Failure, COPD, Diabetes Mellitus, GI Bleed, Hyperlipidemia, Hypertension, Osteoarthritis (OA), Pneumonia, Pulmonary Embolus (PE), Renal Disease, Respiratory Disorder, Vascular Disorder Additional Past Medical History / Comment(s): hx. multiple gastric ulcers, hx of chronic respiratory failure-intubated and ventilated,Pulmonary fibrosis, interstitial lung disease, CHF-chronic diastolic dysfunction, O2 dependence with O2 at 3L/NC ATC, severe PVD, chronic renal failure per old medical hx but pt denies, chronic pain syndrome, migraines, pancreatitis, DJD, neuropathy bilateral upper and lower extremities, gout, tendonitis R arm, carpal tunnel b ilaterally. History of Any Multi-Drug Resistant Organisms: MRSA Year Discovered:: 03/15/17 MDRO Source:: genital Past Surgical History: Back Surgery, Cholecystectomy, Heart Catheterization, Heart Catheterization With Stent Additional Past Surgical History / Comment(s): EGD's, 07/26/15 IVC filter, BACK STIMULATORS x 2 -cervical and lumbar,FEMORAL BYPASS RT LEG X3, metal chips removed from bilateral eyes Past Anesthesia/Blood Transfusion Reactions: No Reported Reaction Additional Past Anesthesia/Blood Transfusion Reaction / Comm: Pt has received blood transfusions without reaction. Date of Last Stent Placement:: Past Psychological History: Anxiety, Depression Smoking Status: Former smoker Past Alcohol Use History: None Reported Past Drug Use History: None Reported - Past Family History Father History Unknown: Yes Family Medical History: Myocardial Infarction ([place]) Additional Family Medical History / Comment(s): due to heart attack Mother History Unknown: Yes Family Medical History: Cancer Additional Family Medical History / Comment(s): LUNG CANCER Medications and Allergies Home Medications Medication Instructions Recorded Confirmed Type Aspirin EC [Ecotrin Low Dose] 81 mg PO DAILY #30 tab 03/29/21 08/16/23 Rx Atorvastatin [Lipitor] 80 mg PO HS #90 tab 03/29/21 08/16/23 Rx Metoprolol Succinate (ER) [Toprol 25 mg PO DAILY 10/05/22 08/16/23 History XL] Clopidogrel [Plavix] 75 mg PO DAILY #90 tab 10/07/22 08/16/23 Rx Multivitamins, Thera [Multivitamin 1 tab PO DAILY 12/16/22 08/16/23 History (formulary)] Cholecalciferol [Vitamin D3 (25 50 mcg PO DAILY 07/06/23 08/16/23 History Mcg = 1000 Iu)] Ondansetron [Zofran] 4 mg PO Q4H PRN 07/06/23 08/16/23 History 0.9 % Sodium Chloride [Sodium 10 ml IV Q8H 08/16/23 08/16/23 History Chloride Flush] Acyclovir Sodium Intravenous 635 mg IV TID 08/16/23 08/16/23 History Solution Budesonide [Pulmicort] 0.5 mg INHALATION RT-BID 08/16/23 08/16/23 History Carbamide Peroxide [Debrox Otic] 5 drops BOTH EARS BID 08/16/23 08/16/23 History Ezetimibe [Zetia] 10 mg PO HS 08/16/23 08/16/23 History Gabapentin [Neurontin] 100 mg PO TID 08/16/23 08/16/23 History HYDROcodone/APAP 5-325MG [[place] 1 tab PO Q6HR PRN 08/16/23 08/16/23 History 5-325] Insulin Lispro [humaLOG Kwikpen] 10 unit SQ AC-TID 08/16/23 08/16/23 History Insulin Lispro [humaLOG Kwikpen] See Protocol SQ ACHS 08/16/23 08/16/23 History Ipratropium-Albuterol Nebulize 3 ml INHALATION RT-Q6H 08/16/23 08/16/23 History [Duoneb 0.5 mg-3 mg/3 ml Soln] L.acidoph,Paracasei, B.lactis 1 cap PO BID 08/16/23 08/16/23 History [Probiotic] Levothyroxine Sodium [Synthroid] 100 mcg PO DAILY 08/16/23 08/16/23 History Lidocaine 5% Patch [Lidoderm] 1 patch TOPICAL DAILY 08/16/23 08/16/23 History Magnesium Oxide [Magox 400] 400 mg PO DAILY 08/16/23 08/16/23 History Midodrine [ProAmatine] 5 mg PO AC-TID 08/16/23 08/16/23 History Pantoprazole Sodium [Protonix] 40 mg PO DAILY 08/16/23 08/16/23 History buPROPion [Wellbutrin] 150 mg PO BID 08/16/23 08/16/23 History ceFAZolin [Kefzol] 2 gm IVP Q8HR 08/16/23 08/16/23 History droNABinol [Marinol] 2.5 mg PO BID 08/16/23 08/16/23 History predniSONE 5 mg PO DAILY 08/16/23 08/16/23 History Allergies Allergy/AdvReac Type Severity Reaction Status Date / Time No Known Allergies Allergy Verified 08/16/23 16:49 Surgical - Exam Vital Signs Pulse Resp BP Pulse Ox 86 24 88/61 97 08/16/23 13:52 08/16/23 13:52 08/16/23 13:52 08/16/23 13:52 - General well developed, well nourished, no distress - Respiratory normal respiratory effort - Genitourinary normal penis with no external lesions - Rectum Rectum: normal sphincter tone, no masses, other (Prostate mildly enlarged but smooth) - Psychiatric oriented to time, oriented to person, oriented to place, speech is normal, memory intact Results - Labs 08/19/23 05:29 08/20/23 11:08 Abnormal Lab Results - Last 24 Hours (Table) 08/19/23 08/19/23 08/19/23 Range/Units 05:29 05:29 06:46 RBC 2.14 L (4.30-5.90) m/uL Hgb 7.1 L D (13.0-17.5) gm/dL Hct 20.8 L (39.0-53.0) % RDW 21.0 H (11.5-15.5) % Neutrophils # 9.4 H (1.3-7.7) k/uL Lymphocytes # 0.4 L (1.0-4.8) k/uL Retic Count (0.5-2.0) % Sodium 134 L (137-145) mmol/L Glucose 118 H (74-99) mg/dL POC Glucose (mg/dL) 120 H (70-110) mg/dL Calcium 8.2 L (8.4-10.2) mg/dL Transferrin (204.0-354.0) mg/dL Ferritin (22.0-322.0) ng/mL Total Protein 5.4 L (6.3-8.2) g/dL Albumin 2.7 L (3.5-5.0) g/dL 08/19/23 08/19/23 08/19/23 Range/Units 12:15 15:21 15:21 RBC (4.30-5.90) m/uL Hgb (13.0-17.5) gm/dL Hct (39.0-53.0) % RDW (11.5-15.5) % Neutrophils # (1.3-7.7) k/uL Lymphocytes # (1.0-4.8) k/uL Retic Count 4.2 H (0.5-2.0) % Sodium (137-145) mmol/L Glucose (74-99) mg/dL POC Glucose (mg/dL) 306 H (70-110) mg/dL Calcium (8.4-10.2) mg/dL Transferrin 176.0 L (204.0-354.0) mg/dL Ferritin 1124.0 H (22.0-322.0) ng/mL Total Protein (6.3-8.2) g/dL Albumin (3.5-5.0) g/dL 08/19/23 08/19/23 08/20/23 Range/Units 15:41 20:10 00:12 RBC (4.30-5.90) m/uL Hgb (13.0-17.5) gm/dL Hct (39.0-53.0) % RDW (11.5-15.5) % Neutrophils # (1.3-7.7) k/uL Lymphocytes # (1.0-4.8) k/uL Retic Count (0.5-2.0) % Sodium (137-145) mmol/L Glucose (74-99) mg/dL POC Glucose (mg/dL) 151 H 144 H 301 H (70-110) mg/dL Calcium (8.4-10.2) mg/dL Transferrin (204.0-354.0) mg/dL Ferritin (22.0-322.0) ng/mL Total Protein (6.3-8.2) g/dL Albumin (3.5-5.0) g/dL 08/20/23 Range/Units 04:02 RBC (4.30-5.90) m/uL Hgb (13.0-17.5) gm/dL Hct (39.0-53.0) % RDW (11.5-15.5) % Neutrophils # (1.3-7.7) k/uL Lymphocytes # (1.0-4.8) k/uL Retic Count (0.5-2.0) % Sodium (137-145) mmol/L Glucose (74-99) mg/dL POC Glucose (mg/dL) 232 H (70-110) mg/dL Calcium (8.4-10.2) mg/dL Transferrin (204.0-354.0) mg/dL Ferritin (22.0-322.0) ng/mL Total Protein (6.3-8.2) g/dL Albumin (3.5-5.0) g/dL Microbiology - Last 24 Hours (Table) 08/16/23 23:30 Blood Culture - Preliminary Blood 08/16/23 23:20 Blood Culture - Preliminary Blood Diabetes panel 08/19/23 Range/Units 05:29 Sodium 134 L (137-145) mmol/L Potassium 3.9 (3.5-5.1) mmol/L Chloride 98 (98-107) mmol/L Carbon Dioxide 28 (22-30) mmol/L BUN 13 (9-20) mg/dL Creatinine 0.81 (0.66-1.25) mg/dL Glucose 118 H (74-99) mg/dL Calcium 8.2 L (8.4-10.2) mg/dL AST 25 (17-59) U/L ALT 10 (4-49) U/L Alkaline Phosphatase 123 (38-126) U/L Total Protein 5.4 L (6.3-8.2) g/dL Albumin 2.7 L (3.5-5.0) g/dL Calcium panel 08/19/23 Range/Units 05:29 Calcium 8.2 L (8.4-10.2) mg/dL Albumin 2.7 L (3.5-5.0) g/dL Pituitary panel 08/17/23 08/19/23 Range/Units 21:04 05:29 Sodium 134 L (137-145) mmol/L Potassium 3.9 (3.5-5.1) mmol/L Chloride 98 (98-107) mmol/L Carbon Dioxide 28 (22-30) mmol/L BUN 13 (9-20) mg/dL Creatinine 0.81 (0.66-1.25) mg/dL Glucose 118 H (74-99) mg/dL Calcium 8.2 L (8.4-10.2) mg/dL ACTH 2.78 (0.00-45.99) pg/mL Adrenal panel 08/17/23 08/19/23 Range/Units 21:04 05:29 Sodium 134 L (137-145) mmol/L Potassium 3.9 (3.5-5.1) mmol/L Chloride 98 (98-107) mmol/L Carbon Dioxide 28 (22-30) mmol/L BUN 13 (9-20) mg/dL Creatinine 0.81 (0.66-1.25) mg/dL Glucose 118 H (74-99) mg/dL Calcium 8.2 L (8.4-10.2) mg/dL Total Bilirubin 0.3 (0.2-1.3) mg/dL AST 25 (17-59) U/L ALT 10 (4-49) U/L Alkaline Phosphatase 123 (38-126) U/L Total Protein 5.4 L (6.3-8.2) g/dL Albumin 2.7 L (3.5-5.0) g/dL ACTH 2.78 (0.00-45.99) pg/mL - Imaging CT scan - abdomen: report reviewed, image reviewed Assessment and Plan (1) Retention of urine, unspecified Current Visit: Yes Status: Acute Code(s): R33.9 - RETENTION OF URINE, UNSPECIFIED SNOMED Code(s): 631010593 Plan: The etiology of Mr. Chilel's urinary retention is unclear. Unfortunately, I am unable to determine how much urine was obtained upon Costa catheter placement. Mr. Chilel is receiving tamsulosin. It would be my suggestion to remove the catheter in several days for a voiding trial. Bladder scan should be utilized to check postvoid residual and determine the possible need for Costa catheter replacement. Time with Patient: Greater than 30
[2023-08-20] MEDS: ATORVASTATIN 80 MG TAB PO SCH (21:31)
[2023-08-20] MEDS: EZETIMIBE 10 MG TAB PO SCH (21:31)
[2023-08-20] MEDS: HYDROcodone/APAP 5-325MG 1 EACH TAB PO PRN (21:31)
[2023-08-20 22:28] LABS: Glucose,Whole Blood 354 mg/dL (70-110)
[2023-08-21] MEDS: HYDROCORTISONE SUCCINATE 100 MG/2 ML VIAL IV SCH ×3 (00:39→17:09)
[2023-08-21 01:53] LABS: Glucose,Whole Blood 317 mg/dL (70-110)
[2023-08-21] MEDS: IPRATROPIUM-ALBUTEROL 3 ML NEB INHALATION SCH ×4 (01:59→20:22)
[2023-08-21] MEDS: INSULIN ASPART (NovoLOG) 100 UNIT/ML VIAL SQ SCH ×6 (02:43→22:12)
[2023-08-21 05:56] LABS: Glucose,Whole Blood 125 mg/dL (70-110)
[2023-08-21] MEDS: LEVOTHYROXINE 125 MCG TAB PO SCH (06:02)
[2023-08-21 06:52] LABS: Anisocytosis Moderate; HCT 21.3 % (39.0-53.0); HGB 7.3 gm/dL (13.0-17.5); MCH 33.7 pg (25.0-35.0); MCHC 34.3 g/dL (31.0-37.0); MCV 98.2 fL (80.0-100.0); Macrocytosis Moderate; Mean Platelet Volume 7.2; Platelet Count 204 k/uL (150-450); RBC 2.17 m/uL (4.30-5.90); RDW 21.2 % (11.5-15.5); WBC 7.7 k/uL (3.8-10.6)
[2023-08-21] MEDS: BUDESONIDE 0.5 MG/2 ML NEBU INHALATION SCH ×2 (08:26→20:22)
[2023-08-21] MEDS: ASPIRIN 81 MG PO SCH (09:16)
[2023-08-21] MEDS: INSULIN DETEMIR (LEVEMIR) 100 UNIT/ML SYR SQ SCH (09:16)
[2023-08-21] MEDS: CLOPIDOGREL 75 MG TAB PO SCH (09:16)
[2023-08-21] MEDS: TAMSULOSIN 0.4 MG CAP.ER.24H PO SCH (09:16)
[2023-08-21] MEDS: GABAPENTIN 100 MG CAP PO SCH ×3 (09:16→22:12)
[2023-08-21] MEDS: droNABinol 2.5 MG CAP PO SCH ×2 (09:16→21:00)
[2023-08-21] MEDS: MAGNESIUM OXIDE 400 MG TAB PO SCH (09:17)
[2023-08-21] MEDS: PANTOPRAZOLE 40 MG TABLET PO SCH (09:17)
[2023-08-21] MEDS: MIDODRINE 5 MG TAB PO SCH ×3 (09:17→17:07)
[2023-08-21] MEDS: HEPARIN SODIUM,PORCINE 5,000 UNIT/ML 1 ML VIAL SQ SCH (09:17)
[2023-08-21] MEDS: QUEtiapine 25 MG TAB PO SCH ×3 (09:17→22:12)
[2023-08-21] MEDS: CARBAMIDE PEROXIDE 6.5% DROPS 15 ML BTL BOTH EARS SCH ×2 (09:18→21:01)
[2023-08-21] MEDS: buPROPion 75 MG TAB PO SCH ×2 (09:18→20:59)
[2023-08-21] MEDS: ONDANSETRON 4 MG TAB PO PRN (09:27)
[2023-08-21] MEDS: HYDROcodone/APAP 5-325MG 1 EACH TAB PO PRN (09:29)
[2023-08-21 10:17] LABS: Glucose,Whole Blood 318 mg/dL (70-110)
--- NOTE | 2023-08-21 11:07 | P.PN ---
Subjective Patient is seen in follow-up for hyponatremia. Sodium level gradually improving up to 134 yesterday. Has Costa catheter for urinary retention. Nonoliguric. No complaints Objective - Vital Signs Vital signs: Vital Signs Temp 97.8 F 08/21/23 07:00 Pulse 95 08/21/23 08:39 Resp 18 08/21/23 07:00 BP 147/73 08/21/23 07:00 Pulse Ox 97 08/21/23 08:28 FiO2 Intake & Output 08/20/23 08/21/23 08/21/23 18:59 06:59 18:59 Intake Total 1200 Output Total 1999 Balance -800 -1999 - Weight 54.5 kg 41 kg Intake: IV 1200 Sodium Chloride 0.45% 1, 1200 000 ml @ 100 mls/hr IV . Q10H [facility] Rx#:[id number] Output: Urine 1999 Other: Voiding Method Indwelling Catheter Indwelling Catheter Indwelling Catheter - Exam Patient is sleeping but arousable Examination of the heart S1 and S2 Examination the lungs bilateral breath sounds are heard Abdomen is soft nontender Examination of the lower extremities shows no significant edema [employer] exam grossly intact - Labs CBC & Chem 7: 08/21/23 06:29 08/20/23 11:08 Labs: Abnormal Lab Results - Last 24 Hours (Table) 08/20/23 08/20/23 08/20/23 Range/Units 11:08 13:07 17:54 RBC (4.30-5.90) m/uL Hgb (13.0-17.5) gm/dL Hct (39.0-53.0) % RDW (11.5-15.5) % Sodium 134 L (137-145) mmol/L Glucose 230 H (74-99) mg/dL POC Glucose (mg/dL) 199 H 164 H (70-110) mg/dL 08/20/23 08/21/23 08/21/23 Range/Units 22:27 01:51 05:54 RBC (4.30-5.90) m/uL Hgb (13.0-17.5) gm/dL Hct (39.0-53.0) % RDW (11.5-15.5) % Sodium (137-145) mmol/L Glucose (74-99) mg/dL POC Glucose (mg/dL) 354 H 317 H 125 H (70-110) mg/dL 08/21/23 08/21/23 Range/Units 06:29 10:15 RBC 2.17 L (4.30-5.90) m/uL Hgb 7.3 L (13.0-17.5) gm/dL Hct 21.3 L (39.0-53.0) % RDW 21.2 H (11.5-15.5) % Sodium (137-145) mmol/L Glucose (74-99) mg/dL POC Glucose (mg/dL) 318 H (70-110) mg/dL Microbiology - Last 24 Hours (Table) 08/16/23 23:30 Blood Culture - Preliminary Blood 08/16/23 23:20 Blood Culture - Preliminary Blood Assessment and Plan Assessment: 1. 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 Als o component of urinary retention. Sodium level 134 yesterday. Urine sodium 111 and urine osmolality 430. TSH elevated at 18.7 this admission. 2. Metabolic acidosis secondary to ketoacidosis. Improved. 3. Hypothyroidism maintained on Synthroid. 4. Metastatic lung cancer. 5. Diabetes mellitus. 6. History of coronary artery disease. 7. Urinary retention. Costa catheter placed 08/17/2023. On Flomax. Urology on consult Plan: Check sodium today Control blood sugars Continue with half normal saline for now.
--- NOTE | 2023-08-21 12:07 | P.PN ---
Progress Note - Text Please see full dictation by nurse practitioner Ordered to evaluate this patient was been in-house for several days Metastatic lung cancer Multiple medical problems, bedridden Hyponatremia Complained of right-sided localized chest discomfort this morning Sinus tachycardia with upsloping ST depressions, mild, fairly similar to previous EKGs Borderline abnormal troponin Pain-free at this time I sent a message to his primary care physician Patient needs to be evaluated for pulmonary embolism CT angiography of the chest ordered 2-D echo and Doppler study Primary team to address any abnormalities on CT and she Message sent to PCP
--- NOTE | 2023-08-21 13:37 | CT ---
EXAMINATION TYPE: CT angio chest DATE OF EXAM: 08/21/2023 COMPARISON: 10/13/2016 HISTORY: 63-year-old male tachycardia, right-sided chest pain, rule out PE TECHNIQUE: Contiguous axial scanning of the chest performed with IV Contrast, patient injected with 6 0 mL of Isovue 370. Coronal/sagittal MIP reconstructions performed. CT DLP: 222.2 mGycm Automated exposure control for dose reduction was used. FINDINGS: There is generalized anasarca change. Heart borderline enlarged. Slight flattening of the interventricular septum but no reflux of contrast into the hepatic veins. Three-vessel coronary artery calcifications are present. Aorta normal caliber with conventional vessel branching anatomy. Fluctuating mediastinal and right hilar lymph nodes. Some nodes suggested lower right paratracheal ar e larger at 1.7 cm versus 1.2 cm, previously. Lower left paratracheal 1.4 cm versus 1.2 cm, previousl y. Right hilar nodes measure up to 1.5 cm. Subcarinal node measures up to 1.8 cm. AP window nodes sma ller in the interval. Satisfactory opacification of the pulmonary arterial system with exam positive for acute emboli withi n segmental and subsegmental branches of the right upper lobe. Moderate to severe right and [id number] left gynecomastia noted. There is abnormal spiculated appearing focal opacity at the posterior right upper lobe measuring 2.2 cm which is increased from prior. There appears to be prior surgical material along the periphery of the right lower lobe but with new soft tissue in this region measuring 1.7 cm axial image 81. There is multifocal honeycombing greatest in the lower lungs and severe emphysematous change througho ut as well. Honeycombing changes and reticular densities have progressed from 2016. Areas of groundgl ass in the lower lungs have also progressed. No pleural effusion. Marked thickening of the bilateral adrenal glands, new from 2016. Cholecystectomy clips. Bones: There is a spinal stimulator array centered along the mid to lower thoracic spinal canal. A lytic lesion involving the anterior T8 vertebral body is new. IMPRESSION: 1. EXAM POSITIVE FOR ACUTE PULMONARY EMBOLUS INVOLVING SEGMENTAL AND SUBSEGMENTAL BRANCHES OF THE RIG HT UPPER LOBE. RELATIVELY MILD BURDEN. 2. THE FLATTENING OF THE INTERVENTRICULAR SEPTUM IS LIKELY CHRONIC DUE TO ELEVATED RIGHT-SIDED HEART PRESSURES. NO REFLUX OF CONTRAST INTO THE HEPATIC VEINS TO CLEARLY INDICATE RV STRAIN. 3. CONCERNING FINDINGS, FURTHER WORKUP FOR UNDERLYING NEOPLASM AND METASTATIC DISEASE: 4. SPICULATED DISTORTION/SCARRING VERSUS NEOPLASM RIGHT MIDLUNG MEASURING 2.2 CM. PREVIOUS SURGICAL M ATERIAL PERIPHERY OF THE RIGHT LOWER LOBE BUT WITH NEW 1.7 CM SOFT TISSUE HERE. PROMINENT RIGHT HILAR AND LOWER PARATRACHEAL NODES MEASURING UP TO 1.8 CM. NEW LYTIC LESION ANTERIOR T8 VERTEBRAL BODY. NE W MARKED THICKENING OF THE BILATERAL ADRENAL GLANDS. 5. EXTENSIVE UIP/IPF PROGRESSED FROM 2016. SUPERIMPOSED SEVERE COPD. Critical findings called to Nurse Pedro on [address] [place] [address] at 1:32pm.
--- NOTE | 2023-08-21 14:32 | P.CRDCN ---
History of Present Illness Consult date: 08/21/23 Reason for Consult (text): elevated trop, cp History of present illness: History of present illness: This is a 63 year old male patient of Dr. Natalie alegria with past medical history of coronary artery disease status post angioplasty of the right coronary artery, hypertension, dyslipidemia, orthostatic hypotension. We have been asked to eval uate the patient for chest pain and elevated troponin. Patient has been hospitalized since 08/16 for hyponatremia secondary to SIADH followed by nephrology, metabolic acidosis, non-small cell lung cancer, diabetes. He suffered from urinary retention with Costa catheter in place. Apparently, patie nt had his morning medications and developed chest pain and nausea. He states he has pain in the right anterior upper chest area it is still there at this time. It does not radiate. He is noted to be tachycardic. We ordered a CTA of the chest to rule out pulmonary embolism which came back positive for acute pulmonary embolus involving the segmental and subsegmental branches of the right upper lobe. Relative line mild burden. EKG sinus tachycardia with upsloping ST depression similar to previous EKGs Troponin 0.037 Home cardiac medications: Aspirin 81 mg daily, atorvastatin 80 mg at bedtime, Plavix 75 mg daily, Zetia 10 mg at bedtime, levothyroxine 100 g daily, Toprol- XL 25 mg daily, midodrine 5 mg 3 times daily. Lexiscan Cardiolite stress test performed 10/2021 revealed field probably abnormal myocardial perfusion imaging with partially reversible inferior wall defect with a fixed lateral wall defect and normal gait it's effect images. Findings could represent an area of stress-induced ischemia involving the RCA territory although the inferior lateral wall could represent soft tissue attenuation. Echocardiogram performed 2020 revealed normal LV size and function with EF 55%. Mild mitral regurgitation, [id number] tricuspid regurgitation, normal pulmonary artery systolic pressure. Review Of Systems: At the time of my evaluation: Constitutional: No fever, no chills. + weakness, + fatigue + lethargy. EENT: No headache. No dizziness. Lungs: No shortness of breath, cough, no sputum production. No wheezing. Cardiovascular: + chest pain, no lower extremity edema. No palpitations. No paroxysmal nocturnal dyspnea. No orthopnea. No lightheadedness or dizziness. No syncopal episodes. Musculoskeletal: No myalgias. No muscle weakness, no frequent falls. Integumentary: No wounds. No rash. No unusual bruising. Neurologic: No aphasia. No facial droop. No change in mentation. Physical examination: Gen: This is a 63 year old frail cachectic appearing male resting in bed. No acute distress noted. VS: reviewed HEENT: Head is atraumatic, normocephalic. Pupils equal, round. Sclerae is anicteric. NECK: Supple. No JVD. . LUNGS: Clear to auscultation. No wheezes or rhonchi. No intercostal retractions. HEART: Regular rate and rhythm. No murmur. ABDOMEN: Soft No tenderness. EXTREMITIES: No pedal edema. No calf tenderness. NEUROLOGICAL: Patient is awake, alert and oriented x3. Assessment: Chest pain secondary to Acute pulmonary embolism Sinus tachycardia secondary to acute pulmonary embolism Acute coronary syndrome ruled out History of coronary artery disease status post angioplasty of the right coronary artery Hypertension Dyslipidemia Orthostatic hypertension Severe hyponatremia, SIADH Metabolic acidosis Metastatic lung cancer, NSCLC Diabetes Urinary retention Plan: Primary team to address abnormalities on CT Obtain 2-D echocardiogram and Doppler study to assess cardiac structure and function Further recommendations to follow based upon clinical course Thank you kindly for this consultation. Nurse practitioner note has been reviewed, I agree with documented findings and plan of care. Patient was seen and examined. Past Medical History Past Medical History: Coronary Artery Disease (CAD), Cancer, Heart Failure, COPD, Diabetes Mellitus, GI Bleed, Hyperlipidemia, Hypertension, Osteoarthritis (OA), Pneumonia, Pulmonary Embolus (PE), Renal Disease, Respiratory Disorder, Vascular Disorder Additional Past Medical History / Comment(s): hx. 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 History of Any Multi-Drug Resistant Organisms: MRSA Date of last positivie culture/infection: 03/15/17 MDRO Source:: genital Past Surgical History: Back Surgery, Cholecystectomy, Heart Catheterization, Heart Catheterization With Stent Additional Past Surgical History / Comment(s): EGD's, 07/26/15 IVC filter, BACK STIMULATORS x 2 -cervical and lumbar,FEMORAL BYPASS RT LEG X3, metal chips removed from bilateral eyes Past Anesthesia/Blood Transfusion Reactions: No Reported Reaction Additional Past Anesthesia/Blood Transfusion Reaction / Comment(s): Pt has received blood transfusions without reaction. Date of Last Stent Placement:: Past Psychological History: Anxiety, Depression Smoking Status: Former smoker Past Alcohol Use History: None Reported Past Drug Use History: None Reported - Past Family History Father History Unknown: Yes Family Medical History: Myocardial Infarction ([place]) Additional Family Medical History / Comment(s): due to heart attack Mother History Unknown: Yes Family Medical History: Cancer Additional Family Medical History / Comment(s): LUNG CANCER Medications and Allergies Home Medications Medication Instructions Recorded Confirmed Type Aspirin EC [Ecotrin Low Dose] 81 mg PO DAILY #30 tab 03/29/21 08/16/23 Rx Atorvastatin [Lipitor] 80 mg PO HS #90 tab 03/29/21 08/16/23 Rx Metoprolol Succinate (ER) [Toprol 25 mg PO DAILY 10/05/22 08/16/23 History XL] Clopidogrel [Plavix] 75 mg PO DAILY #90 tab 10/07/22 08/16/23 Rx Multivitamins, Thera [Multivitamin 1 tab PO DAILY 12/16/22 08/16/23 History (formulary)] Cholecalciferol [Vitamin D3 (25 50 mcg PO DAILY 07/06/23 08/16/23 History Mcg = 1000 Iu)] Ondansetron [Zofran] 4 mg PO Q4H PRN 07/06/23 08/16/23 History 0.9 % Sodium Chloride [Sodium 10 ml IV Q8H 08/16/23 08/16/23 History Chloride Flush] Acyclovir Sodium Intravenous 635 mg IV TID 08/16/23 08/16/23 History Solution Budesonide [Pulmicort] 0.5 mg INHALATION RT-BID 08/16/23 08/16/23 History Carbamide Peroxide [Debrox Otic] 5 drops BOTH EARS BID 08/16/23 08/16/23 History Ezetimibe [Zetia] 10 mg PO HS 08/16/23 08/16/23 History Gabapentin [Neurontin] 100 mg PO TID 08/16/23 08/16/23 History HYDROcodone/APAP 5-325MG [[place] 1 tab PO Q6HR PRN 08/16/23 08/16/23 History 5-325] Insulin Lispro [humaLOG Kwikpen] 10 unit SQ AC-TID 08/16/23 08/16/23 History Insulin Lispro [humaLOG Kwikpen] See Protocol SQ ACHS 08/16/23 08/16/23 History Ipratropium-Albuterol Nebulize 3 ml INHALATION RT-Q6H 08/16/23 08/16/23 History [Duoneb 0.5 mg-3 mg/3 ml Soln] L.acidoph,Paracasei, B.lactis 1 cap PO BID 08/16/23 08/16/23 History [Probiotic] Levothyroxine Sodium [Synthroid] 100 mcg PO DAILY 08/16/23 08/16/23 History Lidocaine 5% Patch [Lidoderm] 1 patch TOPICAL DAILY 08/16/23 08/16/23 History Magnesium Oxide [Magox 400] 400 mg PO DAILY 08/16/23 08/16/23 History Midodrine [ProAmatine] 5 mg PO AC-TID 08/16/23 08/16/23 History Pantoprazole Sodium [Protonix] 40 mg PO DAILY 08/16/23 08/16/23 History buPROPion [Wellbutrin] 150 mg PO BID 08/16/23 08/16/23 History ceFAZolin [Kefzol] 2 gm IVP Q8HR 08/16/23 08/16/23 History droNABinol [Marinol] 2.5 mg PO BID 08/16/23 08/16/23 History predniSONE 5 mg PO DAILY 08/16/23 08/16/23 History Allergies Allergy/AdvReac Type Severity Reaction Status Date / Time No Known Allergies Allergy Verified 08/16/23 16:49 Physical Exam Vitals: Vital Signs Temp Pulse Pulse Resp BP Pulse Ox 08/21/23 08:39 95 08/21/23 08:28 97 08/21/23 08:26 92 08/21/23 07:00 97.8 F 100 18 147/73 100 08/21/23 02:10 96 08/21/23 01:59 96 08/21/23 01:50 97.6 F 103 H 18 144/76 99 08/20/23 20:23 98.7 F 112 H 16 120/65 97 08/20/23 20:22 100 08/20/23 20:03 96 08/20/23 12:18 100 08/20/23 12:08 100 08/20/23 11:55 98.3 F 101 H 18 146/74 93 L Intake and Output 08/20/23 08/21/23 08/21/23 22:59 06:59 14:59 Intake Total 1200 Output Total 700 2000 750 Balance 500 -2000 -750 Intake: IV 1200 Sodium Chloride 0.45% 1, 1200 000 ml @ 100 mls/hr IV . Q10H [facility] Rx#:[id number] Output: Urine 700 2000 750 Other: Voiding Method Indwelling Catheter Indwelling Catheter Weight 41 kg Results 08/21/23 06:29 08/20/23 11:08 Cardiac Enzymes 08/21/23 Range/Units 10:31 Troponin I 0.037 H* (0.000-0.034) ng/mL CBC 08/21/23 Range/Units 06:29 WBC 7.7 (3.8-10.6) k/uL RBC 2.17 L (4.30-5.90) m/uL Hgb 7.3 L (13.0-17.5) gm/dL Hct 21.3 L (39.0-53.0) % Plt Count 204 (150-450) k/uL Comprehensive Metabolic Panel 08/20/23 Range/Units 11:08 Sodium 134 L (137-145) mmol/L Potassium 3.8 (3.5-5.1) mmol/L Chloride 98 (98-107) mmol/L Carbon Dioxide 26 (22-30) mmol/L BUN 11 (9-20) mg/dL Creatinine 0.66 (0.66-1.25) mg/dL Glucose 230 H (74-99) mg/dL Calcium 8.4 (8.4-10.2) mg/dL Current Medications Generic Name Dose Route Start Last Admin Trade Name Freq PRN Reason Stop Dose Admin Acetaminophen 650 mg 08/17/23 02:19 08/17/23 02:31 Acetaminophen Tab 325 Mg Tab PO 650 mg Q6HR PRN Administration Fever and/ or Pain Hydrocodone Bitart/Acetaminophen 1 each 08/17/23 06:47 08/21/23 09:29 Hydrocodone/Apap 5-325mg 1 Each Tab PO 1 each Q6HR PRN Administration Pain Albuterol/Ipratropium 3 ml 08/16/23 20:00 08/21/23 08:26 Ipratropium-Albuterol 3 Ml Neb INHALATION 3 ml RT-Q6H [facility]ACE[facility] Administration Aspirin 81 mg 08/17/23 09:00 08/21/23 09:16 Aspirin 81 Mg PO 81 mg DAILY TRACEY Administration Atorvastatin Calcium 80 mg 08/16/23 21:00 08/20/23 21:31 Atorvastatin 80 Mg Tab PO 80 mg HS TRACEY Administration Budesonide 0.5 mg 08/16/23 20:00 08/21/23 08:26 Budesonide 0.5 Mg/2 Ml Nebu INHALATION 0.5 mg RT-BID TRACEY Administration Bupropion HCl 150 mg 08/16/23 21:00 08/21/23 09:18 Bupropion 75 Mg Tab PO 150 mg BID TRACEY Administration Carbamide Perox/Anhydrous Glycerin 5 drops 08/16/23 21:00 08/21/23 09:18 Carbamide Peroxide 6.5% Drops 15 Ml Btl BOTH EARS 5 drops BID TRACEY Administration Clopidogrel Bisulfate 75 mg 08/17/23 09:00 08/21/23 09:16 Clopidogrel 75 Mg Tab PO 75 mg DAILY TRACEY Administration Dextrose/Water 50 ml 08/16/23 20:48 Dextrose 50% Syringe 50 Ml IVP ONCE PRN CBG < 70 mg/dL Protocol Dextrose/Water 25 ml 08/18/23 06:30 Dextrose 50% Syringe 50 Ml IVP PER PROTOCOL PRN Hypoglycemia Protocol Dextrose/Water 50 ml 08/18/23 06:30 Dextrose 50% Syringe 50 Ml IVP PER PROTOCOL PRN Hypoglycemia Protocol Dronabinol 2.5 mg 08/16/23 21:00 08/21/23 09:16 Dronabinol 2.5 Mg Cap PO 2.5 mg BID TRACEY Administration Ezetimibe 10 mg 08/16/23 21:00 08/20/23 21:31 Ezetimibe 10 Mg Tab PO 10 mg HS TRACEY Administration Gabapentin 100 mg 08/16/23 22:00 08/21/23 09:16 Gabapentin 100 Mg Cap PO 100 mg TID TRACEY Administration Heparin Sodium (Porcine) 5,000 unit 08/17/23 09:00 08/21/23 09:17 Heparin Sodium,Porcine 5,000 Unit/Ml 1 Ml Vial SQ 5,000 unit Q12HR [facility] Administration Hydrocortisone Sodium Succinate 100 mg 08/17/23 00:00 08/21/23 09:18 Hydrocortisone Succinate 100 Mg/2 Ml Vial IV 100 mg Q8HR [facility] Administration Cefazolin Sodium 2 gm/ Sodium 50 mls @ 100 mls/hr 08/16/23 22:00 08/21/23 06 :02 Chloride IVPB 100 mls/hr Q8H [facility] Administration Sodium Chloride 1,000 mls @ 100 mls/hr 08/18/23 11:00 08/20/23 21:40 Saline 0.45% IV 100 mls/hr .Q10H [facility] Administration Insulin Aspart 0 unit 08/18/23 06:30 08/21/23 10:29 Insulin Aspart (Novolog) 100 Unit/Ml Vial SQ 12 unit Q4H [facility] Administration Protocol Insulin Detemir 10 unit 08/18/23 07:00 08/21/23 09:16 Insulin Detemir (Levemir) 100 Unit/Ml Syr SQ 10 unit DAILY@0700 [facility] Administration Levothyroxine Sodium 125 mcg 08/17/23 06:30 08/21/23 06:02 Levothyroxine 125 Mcg Tab PO 125 mcg DAILY@0630 [facility] Administration Magnesium Oxide 400 mg 08/17/23 09:00 08/21/23 09:17 Magnesium Oxide 400 Mg Tab PO 400 mg DAILY TRACE[facility] Administration Midodrine 10 mg 08/17/23 12:30 08/21/23 09:17 Midodrine 5 Mg Tab PO Not Given AC-TID [facility] Naloxone HCl 0.2 mg 08/16/23 15:55 Naloxone 0.4 Mg/Ml 1 Ml Vial IV Q2M PRN Opioid Reversal Ondansetron HCl 4 mg 08/16/23 19:03 08/21/23 09:27 Ondansetron 4 Mg Tab PO 4 mg Q4H PRN Administration Nausea Pantoprazole Sodium 40 mg 08/17/23 07:30 08/21/23 09:17 Pantoprazole 40 Mg Tablet PO 40 mg AC-[id number] TRACEY Administration Quetiapine Fumarate 25 mg 08/18/23 09:30 08/21/23 09:17 Quetiapine 25 Mg Tab PO 25 mg TID TRACEY Administration Tamsulosin HCl 0.4 mg 08/19/23 11:00 08/21/23 09:16 Tamsulosin 0.4 Mg Cap.Er.24h PO 0.4 mg PC-BRKFST TRACEY Administration Intake and Output 08/20/23 08/21/23 08/21/23 22:59 06:59 14:59 Intake Total 1200 Output Total 700 2000 750 Balance 500 -2000 -750 Intake: IV 1200 Sodium Chloride 0.45% 1, 1200 000 ml @ 100 mls/hr IV . Q10H [facility] Rx#:[id number] Output: Urine 700 2000 750 Other: Voiding Method Indwelling Catheter Indwelling Catheter Weight 41 kg 08/21/23 06:29 08/20/23 11:08
[2023-08-21 14:35] LABS: Glucose,Whole Blood 216 mg/dL (70-110)
--- NOTE | 2023-08-21 15:32 | P.PN ---
Subjective Progress Note Date: 08/21/23 I am seeing this patient in new consultation today 08/17/2023 in the intensive care unit after he presented from [facility] with altered mental status. Patient is a 63-year-old male with past medical history significant for metastatic lung cancer, pulmonary fibrosis, COPD, type 1 diabetes mellitus, hypertension, hyperlipidemia, pulmonary embolism, among other things. Patient does follow with his oncologist Dr. Heredia for management of his metastatic lung cancer, and had been receiving a combination of Carbolplatin/Alimta/Keytuda, but is on hold in light of his recent soft tissue abdominal well cellulitis/abscess. This reportedly developed from an old insulin pump subcutaneous site. Appa rently, the patient was recently hospitalized at [facility] for abdominal wall cellulitis and hyponatremia. He also was found to have shingles, and started on antivirals. Patient was then discharged to [facility] rehab facility. At the outside facility, he was found to be confused. It was felt this correlated with his [place] administration, however, he was found to have abnormal blood glucose readings. on arrival to the emergency room, a nonenhanced brain CT did not show any acute intracranial abnormality. It did show generalized atrophy and remote infarct/consult of the right cerebral hemisphere. Chest x-ray on arrival showed chronic fibrotic changeswithout any acute cardiop ulmonary process. Patient is currently lying in bed, on 2 L/m nasal cannula, in no acute distress. He is still confused and having visual hallucinations. His sodium was found to be severely low at 115, and he was started on a hypertonic saline infusion which is currently running at 30 MLS per hour. He was also hypoglycemic in the emergency room, and started on a D10W. This is currently on hold, because the patient is now hyperglycemic.CBC on arrival showed a WBC count of 12.4, hemoglobin 8.6, hematocrit 23.7, platelets 205. Most recent BMP from around midnight showed a sodium 112, potassium 5, chloride 82, serum bicarb 19, BUN 17, creatinine 0.77, glucose 259. Serum osmolality was 244. Urine osmolality was 430. Urine sodium 111. hyponatremia is being managed by nephrology. TSH was elevated at 18.7 and free T4 0.58. Patient had reportedly been refusing his medications. UA not concerning for UTI. No documented fevers. Restarted on Cefazolin and Acyclovir. Patient is admitted to the intensive care unit. Progress note dated 08/18/2023. 63-year-old male seen yesterday in consultation, for mental status changes, in part related to hyponatremia. The patient has history of metastatic lung cancer, pulmonary fibrosis, COPD, diabetes, hypertension, hyperlipidemia, pulmonary embolism, and multiple other medical problems. The patient was admitted with a sodium of 112. Currently, his sodium is 127. He seen in the intensive care unit, room 253. Currently, he's on 2 L of oxygen. He is getting norepinephrine at 2 mcg/m, Precedex for agitation is 0.2 mcg/kg per hour. Saline running at 10 mL an hour. Seroquel, 25 mg 3 times a day for agitation. White count 13.1, hemoglobin 8.6, hematocrit 23.8, with a normal platelet count. Sodium 127, potassium 4.9, chlorides 91, CO2 18, anion gap 18, BUN 17, and creatinine 0.78. Progress note dated 08/19/2023. 63-year-old male seen in consultation a few days ago, for mental status changes, and hyponatremia. The patient is seen again in the intensive care unit, room 253. The patient has a history of metastatic lung cancer, pulmonary fibrosis, COPD, diabetes, hypertension, hyperlipidemia, pulmonary embolism, and other medical problems. Currently, his sodium is 134. He is currently on 2 L of oxygen. He is getting half-normal saline at 100 mL an hour. Norepinephrine has been weaned off. The patient's dexmedetomidine is also been off for some time. The patient clinically is doing much better. White count is 10.2, hemoglobin 7.1, hematocrit 20.8, and platelet count 218,000. Sodium 134, potassium 3.9, chlorides 98, CO2 28, BUN 13, creatinine 0.81. Albumin is 2.7. Blood cultures are negative. The patient is seen today 08/20/2023 in follow-up on the regular medical floor. He is currently resting in bed. Awake and alert in no acute distress. He is maintaining O2 saturations in the 90s on 2 L/m per nasal cannula. He has 0.45% normal saline at 100 ML's per hour. His current sodium is 134. Blood cultures revealed no growth. Blood sugar 232. He is continued on DuoNeb inhalations, Pulmicort inhalations. He remains on Solu-Cortef per nephrology. Todays labs are pending. The patient is seen today 08/21/2023 and follow-up on the regular medical floor. He is currently resting comfortably in bed. Awake and alert in no acute distress. He is complaining of some anterior chest pain. He is somewhat e motional today and teary-eyed. He is maintaining O2 saturations in the mid to upper 90s on 2 L/m per nasal cannula. He is afebrile. Hemodynamically stable. White count 7.7. Hemoglobin 7.3. Platelets 204. Troponin 0.037. Glucose 318. CT angiogram was performed and he was found to have an acute pulmonary embolus involving the segmental and subsegmental branches of the right upper lobe. Rel atively mild burden. There is evidence of his metastatic lung cancer in the right lung. Extensive UIP/IPF progress from 2016. Severe COPD. Blood cultures reveal no growth. He is continued on DuoNeb inhalations, Pulmicort and Perforomist inhalations. 0.45% saline at 100 ML's per hour. He remains on Solu- Cortef. He remains on cefazolin. Objective - Vital Signs Vital signs: Vital Signs Temp 97.9 F 08/21/23 11:47 Pulse 115 H 08/21/23 11:47 Resp 18 08/21/23 11:47 BP 146/79 08/21/23 11:47 Pulse Ox 98 08/21/23 11:47 FiO2 Intake & Output 08/20/23 08/21/23 08/21/23 18:59 06:59 18:59 Intake Total 1200 Output Total 1999 1999 1749 Balance - Weight 54.5 kg 41 kg Intake: IV 1200 Sodium Chloride 0.45% 1, 1200 000 ml @ 100 mls/hr IV . Q10H [facility] Rx#:[id number] Output: Urine 1999 1999 1749 Other: Voiding Method Indwelling Catheter Indwelling Catheter Indwelling Catheter - Exam GENERAL EXAM: Alert but confused at times, 63-year-old male, resting in bed, anxious, on 2 liters nasal cannula. HEAD: Normocephalic and atraumatic EYES: Normal reaction of pupils, equal size. NOSE: Clear with pink turbinates. THROAT: No erythema or exudates. NECK: No masses, no JVD. CHEST: No chest wall deformity. There is a right chest Mediport, accessed LUNGS: Equal air entry with inspiratory crackles heard at the right lower base. No wheezes, rhonchi, or focal dullness. CVS: S1 and S2 normal with no audible murmur, regular rhythm. No extra heart sounds ABDOMEN: No hepatosplenomegaly, active bowel sounds, no guarding or rigidity. SPINE: No scoliosis or deformity SKIN: right upper arm open ulcerations CENTRAL NERVOUS SYSTEM: No focal deficits, tone is normal in all 4 extremities. EXTREMITIES: There is no peripheral edema, clubbing, or cyanosis. Peripheral pulses are intact. - Labs CBC & Chem 7: 08/21/23 06:29 08/20/23 11:08 Labs: Abnormal Lab Results - Last 24 Hours (Table) 08/20/23 08/20/23 08/21/23 Range/Units 17:54 22:27 01:51 RBC (4.30-5.90) m/uL Hgb (13.0-17.5) gm/dL Hct (39.0-53.0) % RDW (11.5-15.5) % POC Glucose (mg/dL) 164 H 354 H 317 H (70-110) mg/dL Troponin I (0.000-0.034) ng/mL 08/21/23 08/21/23 08/21/23 Range/Units 05:54 06:29 10:15 RBC 2.17 L (4.30-5.90) m/uL Hgb 7.3 L (13.0-17.5) gm/dL Hct 21.3 L (39.0-53.0) % RDW 21.2 H (11.5-15.5) % POC Glucose (mg/dL) 125 H 318 H (70-110) mg/dL Troponin I (0.000-0.034) ng/mL 08/21/23 Range/Units 10:31 RBC (4.30-5.90) m/uL Hgb (13.0-17.5) gm/dL Hct (39.0-53.0) % RDW (11.5-15.5) % POC Glucose (mg/dL) (70-110) mg/dL Troponin I 0.037 H* (0.000-0.034) ng/mL Microbiology - Last 24 Hours (Table) 08/16/23 23:30 Blood Culture - Preliminary Blood 08/16/23 23:20 Blood Culture - Preliminary Blood Assessment and Plan Assessment: Chest pain in a patient found to have right pulmonary emboli evolving segmental and subsegmental branches of the right upper lobe. Relatively mild burden. Metastatic lung cancer. Computed tomography scan reveals spiculated distortion/scarring versus neoplasm of the right midlung measuring 2.2 cm. Previous surgical material periphery of the right lower lobe but with new 1.7 cm soft tissue. Prominent right hilar and lower paratracheal nodes measuring up to 1.8 cm. New lytic lesion anterior T8 vertebral body. [place] thickening of the bilateral adrenal glands. There is extensive UIP/IPF which has progressed from 2016. Severe COPD. Severe hyponatremia, suspect SIADH. Improving on current sodium 134 Hyponatremic encephalopathy, improving Hypoglycemia, improved. Currently hyperglycemic Anion gap metabolic acidosis Acute on chronic anemia, current hemoglobin 7.3 Hypothyroidism Herpes zoster History of abdominal wall cellulitis Leukocytosis Chronic pulmonary fibrosis Chronic obstructive pulmonary disease Chronic hypoxemic respiratory failure History of pulmonary embolism, status post IVC filter Diabetes mellitus, insulin-dependent Hyperlipidemia Remote CVA Coronary artery disease, with previous coronary stents History of pancreatitis Chronic pain Peripheral neuropathy History of migraines Plan: The patient was seen and evaluated Computed tomography scan of the chest, labs and medications reviewed Anticoagulation to be initiated per ordering physician/primary service Titrate down the FiO2 as tolerated We will continue to follow This patient was seen independently by the nurse practitioner I have personally seen and examined the patient, performed the documentation and the assessment and plan as written. Number of minutes spent on the visit: 24.
[2023-08-21] MEDS ORDERED: HEPARIN SODIUM 1,000 UN/ML (10ML VL) IV ONE (15:33)
[2023-08-21] MEDS: HEPARIN SOD,PORK IN 0.45% NACL 25,000 UNIT in 0.45% NACL 1 250ML.BAG IV SCH (16:19)
[2023-08-21] MEDS: SODIUM CHLORIDE 0.45% 1,000 ML IV SCH (16:21)
[2023-08-21 16:22] LABS: Anisocytosis Moderate; Basophils % (A) 0 %; Eosinophils % (A) 0 %; HCT 22.2 % (39.0-53.0); HGB 7.6 gm/dL (13.0-17.5); Lymphocytes # (A) 0.4 k/uL (1.0-4.8); Lymphocytes % (A) 6 %; MCH 33.9 pg (25.0-35.0); MCHC 34.3 g/dL (31.0-37.0); MCV 98.7 fL (80.0-100.0); Macrocytosis Moderate; Mean Platelet Volume 7.4; Monocytes # (A) 0.2 k/uL (0-1.0); Monocytes % (A) 3 %; Neutrophils # (A) 6.9 k/uL (1.3-7.7); Neutrophils % (A) 90 %; Platelet Count 211 k/uL (150-450); RBC 2.25 m/uL (4.30-5.90); RDW 21.4 % (11.5-15.5); WBC 7.6 k/uL (3.8-10.6)
[2023-08-21 16:44] LABS: Partial Thromboplastin Time 25.3 sec (22.0-30.0); Prothrombin Time 11.2 sec (10.0-12.5)
[2023-08-21 17:54] LABS: Glucose,Whole Blood 146 mg/dL (70-110)
--- NOTE | 2023-08-21 18:35 | CA ---
Transthoracic Echo Report Name: Neptali Chilel Age: 63 Gender: M : 1960 Exam Date: 08/21/2023 16:03 Exam Location: [facility] Ht (in): 66 Wt (lb): 90 Ordering Physician: Fariha Guerrier Attending/Referring Phys: [id number], [employer] Samanta Wilson RDCS Procedure CPT: Indications: LVF Cardiac Hx: Technical Quality: Fair Contrast 1: Total Dose (mL): Contrast 2: Total Dose (mL): MEASUREMENTS (Male / Female) Normal Values 2D ECHO LV Diastolic Diameter PLAX 4.0 cm 4.2 - 5.9 / 3.9 - 5.3 cm LV Systolic Diameter PLAX 2.9 cm IVS Diastolic Thickness 1.2 cm 0.6 - 1.0 / 0.6 - 0.9 cm LVPW Diastolic Thickness 1.2 cm 0.6 - 1.0 / 0.6 - 0.9 cm LV Relative Wall Thickness 0.6 RV Internal Dim ED PLAX 2.4 cm LA Volume 48.1 cm??? 18 - 58 / 22 - 52 cm??? LA Volume Index 35.4 cm???/m??? 16 - 28 cm???/m??? M-MODE Aortic Root Diameter MM 3.0 cm LA Systolic Diameter MM 4.1 cm LA Ao Ratio MM 1.4 AV Cusp Separation MM 1.7 cm DOPPLER AV Peak Velocity 111.7 cm/s AV Peak Gradient 5.0 mmHg AV Mean Velocity 87.5 cm/s AV Mean Gradient 3.3 mmHg AV Velocity Time Integral 20.0 cm LVOT Peak Velocity 64.7 cm/s LVOT Peak Gradient 1.7 mmHg LVOT Velocity Time Integral 13.3 cm MV Area PHT 2.7 cm??? Mitral E Point Velocity 71.4 cm/s Mitral A Point Velocity 126.9 cm/s Mitral E to A Ratio 0.6 MV Deceleration Time 286.1 ms FINDINGS Left Ventricle Mildly increased septal wall thickness. Left ventricular cavity size normal. Preserved systolic function. Left ventricular ejection fraction is estimated at 50-55 %. Right Ventricle Normal right ventricular size and function. Right ventricular systolic pressure within normal limits. Right Atrium Normal right atrial size. Left Atrium Moderately increased left atrial volume. Mitral Valve Structurally normal mitral valve. Mitral valve thickened. Mild mitral annular calcification. Mild mitral regurgitation. Aortic Valve Trileaflet aortic valve. No aortic valve stenosis or regurgitation. Tricuspid Valve Structurally normal tricuspid valve. Mild tricuspid regurgitation. Pulmonic Valve Structurally normal pulmonic valve. Trace pulmonic regurgitation. Pericardium No pericardial effusion. Aorta Normal size aortic root and proximal ascending aorta. CONCLUSIONS Left ventricular systolic function mildly reduced 45-50% with inferior wall hypokinesis RV size does not appear enlarged Previewed by: Dr. Jose Enrique Barron MD (Electronically Signed) Final Date: 21 August 2023 18:34
[2023-08-21] MEDS: ATORVASTATIN 80 MG TAB PO SCH (20:59)
[2023-08-21] MEDS: EZETIMIBE 10 MG TAB PO SCH (21:00)
[2023-08-21 22:07] LABS: Glucose,Whole Blood 333 mg/dL (70-110)
[2023-08-21] MEDS: HEPARIN SODIUM 1,000 UN/ML (10ML VL) IV PRN (22:28)
[2023-08-22] MEDS: HYDROCORTISONE SUCCINATE 100 MG/2 ML VIAL IV SCH ×4 (00:04→23:23)
[2023-08-22] MEDS: SODIUM CHLORIDE 0.45% 1,000 ML IV SCH ×3 (01:37→23:29)
[2023-08-22] MEDS: IPRATROPIUM-ALBUTEROL 3 ML NEB INHALATION SCH ×4 (02:59→19:53)
[2023-08-22 03:51] LABS: Glucose,Whole Blood 287 mg/dL (70-110)
[2023-08-22] MEDS: INSULIN ASPART (NovoLOG) 100 UNIT/ML VIAL SQ SCH ×6 (03:59→22:15)
[2023-08-22] MEDS: LEVOTHYROXINE 125 MCG TAB PO SCH (06:05)
[2023-08-22 06:21] LABS: Glucose,Whole Blood 197 mg/dL (70-110)
[2023-08-22] MEDS: BUDESONIDE 0.5 MG/2 ML NEBU INHALATION SCH ×2 (07:52→19:53)
--- NOTE | 2023-08-22 07:59 | P.PN ---
Subjective Progress Note Date: 08/22/23 I am seeing this patient in new consultation today 08/17/2023 in the intensive care unit after he presented from [facility] with altered mental status. Patient is a 63-year-old male with past medical history significant for metastatic lung cancer, pulmonary fibrosis, COPD, type 1 diabetes mellitus, hypertension, hyperlipidemia, pulmonary embolism, among other things. Patient does follow with his oncologist Dr. Heredia for management of his metastatic lung cancer, and had been receiving a combination of Carbolplatin/Alimta/Keytuda, but is on hold in light of his recent soft tissue abdominal well cellulitis/abscess. This reportedly developed from an old insulin pump subcutaneous site. Appa rently, the patient was recently hospitalized at [facility] for abdominal wall cellulitis and hyponatremia. He also was found to have shingles, and started on antivirals. Patient was then discharged to [facility] rehab facility. At the outside facility, he was found to be confused. It was felt this correlated with his [place] administration, however, he was found to have abnormal blood glucose readings. on arrival to the emergency room, a nonenhanced brain CT did not show any acute intracranial abnormality. It did show generalized atrophy and remote infarct/consult of the right cerebral hemisphere. Chest x-ray on arrival showed chronic fibrotic changeswithout any acute cardiop ulmonary process. Patient is currently lying in bed, on 2 L/m nasal cannula, in no acute distress. He is still confused and having visual hallucinations. His sodium was found to be severely low at 115, and he was started on a hypertonic saline infusion which is currently running at 30 MLS per hour. He was also hypoglycemic in the emergency room, and started on a D10W. This is currently on hold, because the patient is now hyperglycemic.CBC on arrival showed a WBC count of 12.4, hemoglobin 8.6, hematocrit 23.7, platelets 205. Most recent BMP from around midnight showed a sodium 112, potassium 5, chloride 82, serum bicarb 19, BUN 17, creatinine 0.77, glucose 259. Serum osmolality was 244. Urine osmolality was 430. Urine sodium 111. hyponatremia is being managed by nephrology. TSH was elevated at 18.7 and free T4 0.58. Patient had reportedly been refusing his medications. UA not concerning for UTI. No documented fevers. Restarted on Cefazolin and Acyclovir. Patient is admitted to the intensive care unit. Progress note dated 08/18/2023. 63-year-old male seen yesterday in consultation, for mental status changes, in part related to hyponatremia. The patient has history of metastatic lung cancer, pulmonary fibrosis, COPD, diabetes, hypertension, hyperlipidemia, pulmonary embolism, and multiple other medical problems. The patient was admitted with a sodium of 112. Currently, his sodium is 127. He seen in the intensive care unit, room 253. Currently, he's on 2 L of oxygen. He is getting norepinephrine at 2 mcg/m, Precedex for agitation is 0.2 mcg/kg per hour. Saline running at 10 mL an hour. Seroquel, 25 mg 3 times a day for agitation. White count 13.1, hemoglobin 8.6, hematocrit 23.8, with a normal platelet count. Sodium 127, potassium 4.9, chlorides 91, CO2 18, anion gap 18, BUN 17, and creatinine 0.78. Progress note dated 08/19/2023. 63-year-old male seen in consultation a few days ago, for mental status changes, and hyponatremia. The patient is seen again in the intensive care unit, room 253. The patient has a history of metastatic lung cancer, pulmonary fibrosis, COPD, diabetes, hypertension, hyperlipidemia, pulmonary embolism, and other medical problems. Currently, his sodium is 134. He is currently on 2 L of oxygen. He is getting half-normal saline at 100 mL an hour. Norepinephrine has been weaned off. The patient's dexmedetomidine is also been off for some time. The patient clinically is doing much better. White count is 10.2, hemoglobin 7.1, hematocrit 20.8, and platelet count 218,000. Sodium 134, potassium 3.9, chlorides 98, CO2 28, BUN 13, creatinine 0.81. Albumin is 2.7. Blood cultures are negative. The patient is seen today 08/20/2023 in follow-up on the regular medical floor. He is currently resting in bed. Awake and alert in no acute distress. He is maintaining O2 saturations in the 90s on 2 L/m per nasal cannula. He has 0.45% normal saline at 100 ML's per hour. His current sodium is 134. Blood cultures revealed no growth. Blood sugar 232. He is continued on DuoNeb inhalations, Pulmicort inhalations. He remains on Solu-Cortef per nephrology. Todays labs are pending. The patient is seen today 08/21/2023 and follow-up on the regular medical floor. He is currently resting comfortably in bed. Awake and alert in no acute distress. He is complaining of some anterior chest pain. He is somewhat e motional today and teary-eyed. He is maintaining O2 saturations in the mid to upper 90s on 2 L/m per nasal cannula. He is afebrile. Hemodynamically stable. White count 7.7. Hemoglobin 7.3. Platelets 204. Troponin 0.037. Glucose 318. CT angiogram was performed and he was found to have an acute pulmonary embolus involving the segmental and subsegmental branches of the right upper lobe. Rel atively mild burden. There is evidence of his metastatic lung cancer in the right lung. Extensive UIP/IPF progress from 2016. Severe COPD. Blood cultures reveal no growth. He is continued on DuoNeb inhalations, Pulmicort and Perforomist inhalations. 0.45% saline at 100 ML's per hour. He remains on Solu- Cortef. He remains on cefazolin. The patient is seen today 08/22/2023 in follow-up on the regular medical floor. He is awake and alert in no acute distress. More comfortable today compared to yesterday. He is maintaining O2 saturations in the 90s on 3 L/m per nasal cannula. He has 0.45% normal saline at 100 ML's per hour. He is now on a heparin drip due to his pulmonary embolism. Echocardiogram revealed preserved left ventricular systolic function with ejection fraction 50-55%. Normal right ventricular size and function. Normal RV pressures. Blood cultures reveal no growth. Glucose 197. Labs are pending. He is continued on DuoNeb inhalations, Pulmicort and Perforomist inhalations. He remains on Solu-Cortef per nephrology. Objective - Vital Signs Vital signs: Vital Signs Temp 98 F 08/22/23 03:06 Pulse 86 08/22/23 03:12 Resp 20 08/22/23 03:06 BP 154/75 08/22/23 03:06 Pulse Ox 100 08/22/23 03:06 FiO2 Intake & Output 10/08/22/23 08/22/23 18:59 06:59 18:59 Intake Total 1437 620.34 Output Total 3300 Balance -1863 620.34 Weight 41 kg 66.1 kg Intake: IV 1200 Sodium Chloride 0.45% 1, 1200 000 ml @ 100 mls/hr IV . Q10H TRACEY Rx#:[id number] Intake, IV Titration 30.34 Amount Heparin Sod,Pork in 0.45% 30.34 NaCl 25,000 unit In 0.45 % NaCl 1 250ml.bag @ 12 UNITS/KG/HR 4.92 mls/hr IV .Q24H TRACEY Rx#: [id number] Oral 237 590 Output: Urine 3300 Other: Voiding Method Indwelling Catheter Indwelling Catheter # Voids 3 - Exam GENERAL EXAM: Alert 63-year-old male, resting in bed, on 3 liters nasal cannula. HEAD: Normocephalic and atraumatic EYES: Normal reaction of pupils, equal size. NOSE: Clear with pink turbinates. THROAT: No erythema or exudates. NECK: No masses, no JVD. CHEST: No chest wall deformity. There is a right chest Mediport, accessed LUNGS: Equal air entry with inspiratory crackles heard at the right lower base. No wheezes, rhonchi, or focal dullness. CVS: S1 and S2 normal with no audible murmur, regular rhythm. No extra heart sounds ABDOMEN: No hepatosplenomegaly, active bowel sounds, no guarding or rigidity. SPINE: No scoliosis or deformity SKIN: right upper arm open ulcerations CENTRAL NERVOUS SYSTEM: No focal deficits, tone is normal in all 4 extremities. EXTREMITIES: There is no peripheral edema, clubbing, or cyanosis. Peripheral pulses are intact. - Labs CBC & Chem 7: 08/21/23 15:51 08/20/23 11:08 Labs: Abnormal Lab Results - Last 24 Hours (Table) 08/21/23 08/21/23 08/21/23 Range/Units 10:15 10:31 14:32 RBC (4.30-5.90) m/uL Hgb (13.0-17.5) gm/dL Hct (39.0-53.0) % RDW (11.5-15.5) % Lymphocytes # (1.0-4.8) k/uL APTT (22.0-30.0) sec POC Glucose (mg/dL) 318 H 216 H (70-110) mg/dL Troponin I 0.037 H* (0.000-0.034) ng/mL 08/21/23 08/21/23 08/21/23 Range/Units 15:51 17:51 21:19 RBC 2.25 L (4.30-5.90) m/uL Hgb 7.6 L (13.0-17.5) gm/dL Hct 22.2 L (39.0-53.0) % RDW 21.4 H (11.5-15.5) % Lymphocytes # 0.4 L (1.0-4.8) k/uL APTT 31.9 H (22.0-30.0) sec POC Glucose (mg/dL) 146 H (70-110) mg/dL Troponin I (0.000-0.034) ng/mL 08/21/23 08/22/23 08/22/23 Range/Units 22:05 03:50 06:20 RBC (4.30-5.90) m/uL Hgb (13.0-17.5) gm/dL Hct (39.0-53.0) % RDW (11.5-15.5) % Lymphocytes # (1.0-4.8) k/uL APTT (22.0-30.0) sec POC Glucose (mg/dL) 333 H 287 H 197 H (70-110) mg/dL Troponin I (0.000-0.034) ng/mL Assessment and Plan Assessment: Chest pain in a patient found to have right pulmonary emboli evolving segmental and subsegmental branches of the right upper lobe. Relatively mild burden. Initiated on a heparin drip. Metastatic lung cancer. Computed tomography scan reveals spiculated distortion/scarring versus neoplasm of the right midlung measuring 2.2 cm. Previous surgical material periphery of the right lower lobe but with new 1.7 cm soft tissue. Prominent right hilar and lower paratracheal nodes measuring up to 1.8 cm. New lytic lesion anterior T8 vertebral body. [place] thickening of the bilateral adrenal glands. There is extensive UIP/IPF which has progressed from 2016. Severe COPD. Severe hyponatremia, suspect SIADH. Improving on current sodium 134 Hyponatremic encephalopathy, improving Hypoglycemia, improved. Currently hyperglycemic Anion gap metabolic acidosis Acute on chronic anemia, current hemoglobin 7.6 Hypothyroidism Herpes zoster History of abdominal wall cellulitis Leukocytosis Chronic pulmonary fibrosis Chronic obstructive pulmonary disease Chronic hypoxemic respiratory failure History of pulmonary embolism, status post IVC filter Diabetes mellitus, insulin-dependent Hyperlipidemia Remote CVA Coronary artery disease, with previous coronary stents History of pancreatitis Chronic pain Peripheral neuropathy History of migraines Plan: The patient was seen and evaluated Labs and medications reviewed Currently on a heparin drip Continue the current treatment plan Titrate down the FiO2 as tolerated We will continue to follow This patient was seen independently by the nurse practitioner I have personally seen and examined the patient, performed the documentation and the assessment and plan as written. Number of minutes spent on the visit: 22.
[2023-08-22] MEDS: INSULIN DETEMIR (LEVEMIR) 100 UNIT/ML SYR SQ SCH (08:23)
[2023-08-22] MEDS: GABAPENTIN 100 MG CAP PO SCH ×3 (08:24→22:14)
[2023-08-22] MEDS: PANTOPRAZOLE 40 MG TABLET PO SCH (08:24)
[2023-08-22] MEDS: TAMSULOSIN 0.4 MG CAP.ER.24H PO SCH (08:24)
[2023-08-22] MEDS: ASPIRIN 81 MG PO SCH (08:24)
[2023-08-22] MEDS: MAGNESIUM OXIDE 400 MG TAB PO SCH (08:24)
[2023-08-22] MEDS: CLOPIDOGREL 75 MG TAB PO SCH (08:24)
[2023-08-22] MEDS: MIDODRINE 5 MG TAB PO SCH ×3 (08:25→17:32)
[2023-08-22] MEDS: buPROPion 75 MG TAB PO SCH ×2 (08:25→20:18)
[2023-08-22] MEDS: QUEtiapine 25 MG TAB PO SCH ×3 (08:25→22:14)
[2023-08-22] MEDS: droNABinol 2.5 MG CAP PO SCH ×2 (08:25→20:18)
[2023-08-22] MEDS: CARBAMIDE PEROXIDE 6.5% DROPS 15 ML BTL BOTH EARS SCH ×2 (08:25→22:14)
[2023-08-22 08:41] LABS: Anisocytosis Moderate; Basophils % (A) 0 %; Eosinophils % (A) 0 %; HCT 22.8 % (39.0-53.0); HGB 7.8 gm/dL (13.0-17.5); Lymphocytes # (A) 0.5 k/uL (1.0-4.8); Lymphocytes % (A) 6 %; MCH 34.1 pg (25.0-35.0); MCV 100.2 fL (80.0-100.0); Macrocytosis Moderate; Mean Platelet Volume 7.3; Monocytes # (A) 0.3 k/uL (0-1.0); Monocytes % (A) 4 %; Neutrophils # (A) 7.4 k/uL (1.3-7.7); Neutrophils % (A) 89 %; Platelet Count 204 k/uL (150-450); RBC 2.28 m/uL (4.30-5.90); RDW 21.4 % (11.5-15.5); WBC 8.3 k/uL (3.8-10.6)
[2023-08-22 08:51] LABS: INR 1.1 (<1.2); Prothrombin Time 11.5 sec (10.0-12.5)
[2023-08-22] MEDS: ONDANSETRON 4 MG TAB PO PRN (09:29)
[2023-08-22 10:55] LABS: Glucose,Whole Blood 315 mg/dL (70-110)
[2023-08-22] MEDS: HEPARIN SODIUM 1,000 UN/ML (10ML VL) IV PRN ×2 (11:37→19:44)
--- NOTE | 2023-08-22 13:13 | P.PN ---
Subjective Progress Note Date: 08/22/23 SUBJECTIVE: Patient is sleepy but arousable on the medication. He denies having any active chest pain or chest pressure. He reports generalized weakness BP 151/74, heart rate 72, Lab shows hemoglobin of 7.8 hemoglobin stable, chronic anemia PHYSICAL EXAMINATION Head: Normocephalic. Eyes: Sclerae nonicteric. Neck: Brisk carotid upstroke, no jugular venous distention. Lungs: Clear to auscultation. Heart: Regular rate and rhythm, S1-S2, no S3, no murmur or rub. Abdomen: Soft nontender, positive bowel sounds no organomegaly. Extremities: No edema, intact distal pulses. No focal neurological deficits. Normal mood and affect ASSESSMENT Acute subsegmental PE Chronic pulmonary hypertension with evidence of intraventricular septal flattening Heart failure with mildly reduced EF, EF 45%, inferior wall hypokinesia appears to be old Euvolemic Multiple comorbidities including metastatic lung cancer and COPD PLAN Discontinue Plavix. Continue aspirin and atorvastatin Continue IV heparin drip. If hemoglobin stable, with transition to Eliquis 10 mg twice a day for 7 days and then 5 mg twice a day Objective - Vital Signs Vital signs: Vital Signs Temp 98 F 08/22/23 07:54 Pulse 76 08/22/23 12:23 Resp 14 08/22/23 07:54 BP 151/74 08/22/23 11:51 Pulse Ox 99 08/22/23 07:54 FiO2 Intake & Output 08/21/23 08/22/23 08/22/23 18:59 06:59 18:59 Intake Total 1437 620.34 436.077 Output Total 3300 Balance -1863 620.34 436.077 Weight 41 kg 66.1 kg Intake: IV 1200 Sodium Chloride 0.45% 1, 1200 000 ml @ 100 mls/hr IV . Q10H TRACEY Rx#:[id number] Intake, IV Titration 30.34 81.077 Amount Heparin Sod,Pork in 0.45% 30.34 81.077 NaCl 25,000 unit In 0.45 % NaCl 1 250ml.bag @ 12 UNITS/KG/HR 4.92 mls/hr IV .Q24H TRACEY Rx#: [id number] Oral 237 590 355 Output: Urine 3300 Other: Voiding Method Indwelling Catheter Indwelling Catheter # Voids 3 - Labs CBC & Chem 7: 08/22/23 07:33 08/20/23 11:08 Labs: Abnormal Lab Results - Last 24 Hours (Table) 08/21/23 08/21/23 08/21/23 Range/Units 14:32 15:51 17:51 RBC 2.25 L (4.30-5.90) m/uL Hgb 7.6 L (13.0-17.5) gm/dL Hct 22.2 L (39.0-53.0) % MCV (80.0-100.0) fL RDW 21.4 H (11.5-15.5) % Lymphocytes # 0.4 L (1.0-4.8) k/uL APTT (22.0-30.0) sec POC Glucose (mg/dL) 216 H 146 H (70-110) mg/dL 08/21/23 08/21/23 08/22/23 Range/Units 21:19 22:05 03:50 RBC (4.30-5.90) m/uL Hgb (13.0-17.5) gm/dL Hct (39.0-53.0) % MCV (80.0-100.0) fL RDW (11.5-15.5) % Lymphocytes # (1.0-4.8) k/uL APTT 31.9 H (22.0-30.0) sec POC Glucose (mg/dL) 333 H 287 H (70-110) mg/dL 08/22/23 08/22/23 08/22/23 Range/Units 06:20 07:33 10:05 RBC 2.28 L (4.30-5.90) m/uL Hgb 7.8 L (13.0-17.5) gm/dL Hct 22.8 L (39.0-53.0) % MCV 100.2 H (80.0-100.0) fL RDW 21.4 H (11.5-15.5) % Lymphocytes # 0.5 L (1.0-4.8) k/uL APTT 37.1 H (22.0-30.0) sec POC Glucose (mg/dL) 197 H (70-110) mg/dL 08/22/23 Range/Units 10:53 RBC (4.30-5.90) m/uL Hgb (13.0-17.5) gm/dL Hct (39.0-53.0) % MCV (80.0-100.0) fL RDW (11.5-15.5) % Lymphocytes # (1.0-4.8) k/uL APTT (22.0-30.0) sec POC Glucose (mg/dL) 315 H (70-110) mg/dL Microbiology - Last 24 Hours (Table) 08/16/23 23:30 Blood Culture - Final Blood 08/16/23 23:20 Blood Culture - Final Blood
[2023-08-22 14:44] LABS: Glucose,Whole Blood 243 mg/dL (70-110)
[2023-08-22] MEDS: HEPARIN SOD,PORK IN 0.45% NACL 25,000 UNIT in 0.45% NACL 1 250ML.BAG IV SCH (17:12)
[2023-08-22] MEDS: HYDROcodone/APAP 5-325MG 1 EACH TAB PO PRN (17:30)
[2023-08-22 18:09] LABS: Glucose,Whole Blood 178 mg/dL (70-110)
[2023-08-22] MEDS: EZETIMIBE 10 MG TAB PO SCH (20:18)
[2023-08-22] MEDS: ATORVASTATIN 80 MG TAB PO SCH (20:18)
[2023-08-22 21:02] LABS: Glucose,Whole Blood 183 mg/dL (70-110)
--- NOTE | 2023-08-22 21:32 | PN ---
PROGRESS NOTE DATE OF SERVICE: 08/21/2023 SUBJECTIVE: He was found to have a DVT. He is on heparin. Pulmonary has been consulted. He is more awake. He is talking more. He has given appropriate answers. He has metastatic cancer. He has generalized weakness and fatigue. He has poor oral intake usually, malnutrition, 45% to 50% ejection fraction. OBJECTIVE: CARDIOVASCULAR: S1, S2. LUNGS: Transmitted upper sounds. HEMATOLOGY: Negative Homans. PSYCH: Fair mood and affect. NEUROLOGIC: Alert and oriented x3. He is sleepy, lethargic. ASSESSMENT: Pulmonary embolism, metastatic lung cancer, diastolic heart failure, chronic constipation, generalized weakness, fatigue, malnutrition. Prognosis is extremely guarded. Oncology and Pulmonary will be consulted. MMODL / IJN: [id number] /
--- NOTE | 2023-08-22 21:38 | PN ---
PROGRESS NOTE SUBJECTIVE: A 63-year-old white male, generalized weakness. Hemoglobin is 7.8. Chronic anemia. OBJECTIVE: HEENT: Head normocephalic, atraumatic. HEART: S1, S2. LUNGS: Clear. GI: Soft. PSYCH: Fair mood and affect. ASSESSMENT: He has acute subsegmental PE. He previously had this at the other hospital. Also, chronic pulmonary hypertension, heart failure, reduced ejection fraction, inferior wall ischemia, metastatic lung cancer, chronic obstructive pulmonary disease. He is on blood thinners, cholesterol pills. He is on Heparin, Eliquis 10 b.i.d. and then go to [address] Melgar saw the patient for his breathing. Currently on heparin drip. Titrate down to FiO2. Continue to follow up. Prognosis is guarded. Please see further orders. MMODL / IJN: [id number] /
[2023-08-23] MEDS: SODIUM CHLORIDE 0.45% 1,000 ML IV SCH (00:27)
[2023-08-23 01:59] LABS: Glucose,Whole Blood 334 mg/dL (70-110)
[2023-08-23] MEDS: IPRATROPIUM-ALBUTEROL 3 ML NEB INHALATION SCH ×4 (02:09→19:56)
[2023-08-23] MEDS: INSULIN ASPART (NovoLOG) 100 UNIT/ML VIAL SQ SCH ×6 (02:51→21:23)
[2023-08-23] MEDS: HYDROcodone/APAP 5-325MG 1 EACH TAB PO PRN ×2 (02:57→08:25)
[2023-08-23] MEDS: HEPARIN SOD,PORK IN 0.45% NACL 25,000 UNIT in 0.45% NACL 1 250ML.BAG IV SCH (03:37)
[2023-08-23 05:16] LABS: Glucose,Whole Blood 241 mg/dL (70-110)
[2023-08-23] MEDS: LEVOTHYROXINE 125 MCG TAB PO SCH (05:55)
[2023-08-23] MEDS: HEPARIN SODIUM 1,000 UN/ML (10ML VL) IV PRN (06:52)
[2023-08-23] MEDS: BUDESONIDE 0.5 MG/2 ML NEBU INHALATION SCH ×2 (08:11→19:56)
[2023-08-23] MEDS: HYDROCORTISONE SUCCINATE 100 MG/2 ML VIAL IV SCH ×3 (08:26→23:26)
[2023-08-23] MEDS: INSULIN DETEMIR (LEVEMIR) 100 UNIT/ML SYR SQ SCH (08:26)
--- NOTE | 2023-08-23 08:28 | P.PN ---
Subjective Progress Note Date: 08/23/23 I am seeing this patient in new consultation today 08/17/2023 in the intensive care unit after he presented from [facility] with altered mental status. Patient is a 63-year-old male with past medical history significant for metastatic lung cancer, pulmonary fibrosis, COPD, type 1 diabetes mellitus, hypertension, hyperlipidemia, pulmonary embolism, among other things. Patient does follow with his oncologist Dr. Heredia for management of his metastatic lung cancer, and had been receiving a combination of Carbolplatin/Alimta/Keytuda, but is on hold in light of his recent soft tissue abdominal well cellulitis/abscess. This reportedly developed from an old insulin pump subcutaneous site. Appa rently, the patient was recently hospitalized at [facility] for abdominal wall cellulitis and hyponatremia. He also was found to have shingles, and started on antivirals. Patient was then discharged to [facility] rehab facility. At the outside facility, he was found to be confused. It was felt this correlated with his Lannon administration, however, he was found to have abnormal blood glucose readings. on arrival to the emergency room, a nonenhanced brain CT did not show any acute intracranial abnormality. It did show generalized atrophy and remote infarct/consult of the right cerebral hemisphere. Chest x-ray on arrival showed chronic fibrotic changeswithout any acute cardiop ulmonary process. Patient is currently lying in bed, on 2 L/m nasal cannula, in no acute distress. He is still confused and having visual hallucinations. His sodium was found to be severely low at 115, and he was started on a hypertonic saline infusion which is currently running at 30 MLS per hour. He was also hypoglycemic in the emergency room, and started on a D10W. This is currently on hold, because the patient is now hyperglycemic.CBC on arrival showed a WBC count of 12.4, hemoglobin 8.6, hematocrit 23.7, platelets 205. Most recent BMP from around midnight showed a sodium 112, potassium 5, chloride 82, serum bicarb 19, BUN 17, creatinine 0.77, glucose 259. Serum osmolality was 244. Urine osmolality was 430. Urine sodium 111. hyponatremia is being managed by nephrology. TSH was elevated at 18.7 and free T4 0.58. Patient had reportedly been refusing his medications. UA not concerning for UTI. No documented fevers. Restarted on Cefazolin and Acyclovir. Patient is admitted to the intensive care unit. Progress note dated 08/18/2023. 63-year-old male seen yesterday in consultation, for mental status changes, in part related to hyponatremia. The patient has history of metastatic lung cancer, pulmonary fibrosis, COPD, diabetes, hypertension, hyperlipidemia, pulmonary embolism, and multiple other medical problems. The patient was admitted with a sodium of 112. Currently, his sodium is 127. He seen in the intensive care unit, room 253. Currently, he's on 2 L of oxygen. He is getting norepinephrine at 2 mcg/m, Precedex for agitation is 0.2 mcg/kg per hour. Saline running at 10 mL an hour. Seroquel, 25 mg 3 times a day for agitation. White count 13.1, hemoglobin 8.6, hematocrit 23.8, with a normal platelet count. Sodium 127, potassium 4.9, chlorides 91, CO2 18, anion gap 18, BUN 17, and creatinine 0.78. Progress note dated 08/19/2023. 63-year-old male seen in consultation a few days ago, for mental status changes, and hyponatremia. The patient is seen again in the intensive care unit, room 253. The patient has a history of metastatic lung cancer, pulmonary fibrosis, COPD, diabetes, hypertension, hyperlipidemia, pulmonary embolism, and other medical problems. Currently, his sodium is 134. He is currently on 2 L of oxygen. He is getting half-normal saline at 100 mL an hour. Norepinephrine has been weaned off. The patient's dexmedetomidine is also been off for some time. The patient clinically is doing much better. White count is 10.2, hemoglobin 7.1, hematocrit 20.8, and platelet count 218,000. Sodium 134, potassium 3.9, chlorides 98, CO2 28, BUN 13, creatinine 0.81. Albumin is 2.7. Blood cultures are negative. The patient is seen today 08/20/2023 in follow-up on the regular medical floor. He is currently resting in bed. Awake and alert in no acute distress. He is maintaining O2 saturations in the 90s on 2 L/m per nasal cannula. He has 0.45% normal saline at 100 ML's per hour. His current sodium is 134. Blood cultures revealed no growth. Blood sugar 232. He is continued on DuoNeb inhalations, Pulmicort inhalations. He remains on Solu-Cortef per nephrology. Todays labs are pending. The patient is seen today 08/21/2023 and follow-up on the regular medical floor. He is currently resting comfortably in bed. Awake and alert in no acute distress. He is complaining of some anterior chest pain. He is somewhat e motional today and teary-eyed. He is maintaining O2 saturations in the mid to upper 90s on 2 L/m per nasal cannula. He is afebrile. Hemodynamically stable. White count 7.7. Hemoglobin 7.3. Platelets 204. Troponin 0.037. Glucose 318. CT angiogram was performed and he was found to have an acute pulmonary embolus involving the segmental and subsegmental branches of the right upper lobe. Rel atively mild burden. There is evidence of his metastatic lung cancer in the right lung. Extensive UIP/IPF progress from 2016. Severe COPD. Blood cultures reveal no growth. He is continued on DuoNeb inhalations, Pulmicort and Perforomist inhalations. 0.45% saline at 100 ML's per hour. He remains on Solu- Cortef. He remains on cefazolin. The patient is seen today 08/22/2023 in follow-up on the regular medical floor. He is awake and alert in no acute distress. More comfortable today compared to yesterday. He is maintaining O2 saturations in the 90s on 3 L/m per nasal cannula. He has 0.45% normal saline at 100 ML's per hour. He is now on a heparin drip due to his pulmonary embolism. Echocardiogram revealed preserved left ventricular systolic function with ejection fraction 50-55%. Normal right ventricular size and function. Normal RV pressures. Blood cultures reveal no growth. Glucose 197. Labs are pending. He is continued on DuoNeb inhalations, Pulmicort and Perforomist inhalations. He remains on Solu-Cortef per nephrology. The patient is seen today 08/23/2023 in follow-up on the regular medical floor. He sitting up in bed. Awake and alert in no acute distress. Oriented to time and place. He denies any worsening shortness of breath, cough or congestion. No hemoptysis. He is maintaining O2 saturations in the 90s on 3 L/m per nasal cannula. He has 0.45% normal saline running at 100 ML's per hour. He remains on a heparin drip. He remains on Solu-Cortef. Most recent labs reveal a white count of 8.3. Hemoglobin of 7.8. Platelets 204. He is continued on DuoNeb inhalations, Pulmicort inhalations. Objective - Vital Signs Vital signs: Vital Signs Temp 98.9 F 08/23/23 02:00 Pulse 100 08/23/23 02:12 Resp 16 08/23/23 02:00 BP 152/75 08/23/23 02:00 Pulse Ox 100 08/23/23 02:00 FiO2 Intake & Output 08/22/23 08/23/23 08/23/23 18:59 06:59 18:59 Intake Total 1146.077 732.461 Output Total 1700 1200 Balance -553.923 -467.539 Weight 64.5 kg Intake: Intake, IV Titration 81.077 142.461 Amount Heparin Sod,Pork in 0.45% 81.077 142.461 NaCl 25,000 unit In 0.45 % NaCl 1 250ml.bag @ 12 UNITS/KG/HR 4.92 mls/hr IV .Q24H [facility] Rx#: [id number] Oral 1065 590 Output: Urine 1700 1200 Uretheral (Costa) 200 Other: Voiding Method Indwelling Catheter - Exam GENERAL EXAM: Alert and oriented, thin 63-year-old male, resting in bed, on 3 liters nasal cannula. HEAD: Normocephalic and atraumatic EYES: Normal reaction of pupils, equal size. NOSE: Clear with pink turbinates. THROAT: No erythema or exudates. NECK: No masses, no JVD. CHEST: No chest wall deformity. There is a right chest Mediport, accessed LUNGS: Equal air entry with inspiratory crackles heard at the right lower base. No wheezes, rhonchi, or focal dullness. CVS: S1 and S2 normal with no audible murmur, regular rhythm. No extra heart sounds ABDOMEN: No hepatosplenomegaly, active bowel sounds, no guarding or rigidity. SPINE: No scoliosis or deformity SKIN: right upper arm open ulcerations CENTRAL NERVOUS SYSTEM: No focal deficits, tone is normal in all 4 extremities. EXTREMITIES: There is no peripheral edema, clubbing, or cyanosis. Peripheral pulses are intact. - Labs CBC & Chem 7: 08/22/23 07:33 08/20/23 11:08 Labs: Abnormal Lab Results - Last 24 Hours (Table) 08/22/23 08/22/23 08/22/23 Range/Units 07:33 10:05 10:53 RBC 2.28 L (4.30-5.90) m/uL Hgb 7.8 L (13.0-17.5) gm/dL Hct 22.8 L (39.0-53.0) % MCV 100.2 H (80.0-100.0) fL RDW 21.4 H (11.5-15.5) % Lymphocytes # 0.5 L (1.0-4.8) k/uL APTT 37.1 H (22.0-30.0) sec POC Glucose (mg/dL) 315 H (70-110) mg/dL 08/22/23 08/22/23 08/22/23 Range/Units 14:43 18:07 18:15 RBC (4.30-5.90) m/uL Hgb (13.0-17.5) gm/dL Hct (39.0-53.0) % MCV (80.0-100.0) fL RDW (11.5-15.5) % Lymphocytes # (1.0-4.8) k/uL APTT 37.2 H (22.0-30.0) sec POC Glucose (mg/dL) 243 H 178 H (70-110) mg/dL 08/22/23 08/23/23 08/23/23 Range/Units 21:00 01:57 02:09 RBC (4.30-5.90) m/uL Hgb (13.0-17.5) gm/dL Hct (39.0-53.0) % MCV (80.0-100.0) fL RDW (11.5-15.5) % Lymphocytes # (1.0-4.8) k/uL APTT 47.6 H (22.0-30.0) sec POC Glucose (mg/dL) 183 H 334 H (70-110) mg/dL 08/23/23 08/23/23 Range/Units 04:21 05:14 RBC (4.30-5.90) m/uL Hgb (13.0-17.5) gm/dL Hct (39.0-53.0) % MCV (80.0-100.0) fL RDW (11.5-15.5) % Lymphocytes # (1.0-4.8) k/uL APTT 43.1 H (22.0-30.0) sec POC Glucose (mg/dL) 241 H (70-110) mg/dL Microbiology - Last 24 Hours (Table) 08/16/23 23:30 Blood Culture - Final Blood 08/16/23 23:20 Blood Culture - Final Blood Assessment and Plan Assessment: Chest pain in a patient found to have right pulmonary emboli evolving segmental and subsegmental branches of the right upper lobe. Relatively mild burden. Initiated on a heparin drip. Metastatic lung cancer. Computed tomography scan reveals spiculated distor tion/scarring versus neoplasm of the right midlung measuring 2.2 cm. Previous surgical material periphery of the right lower lobe but with new 1.7 cm soft tissue. Prominent right hilar and lower paratracheal nodes measuring up to 1.8 cm. New lytic lesion anterior T8 vertebral body. [place] thickening of the bilateral adrenal glands. There is extensive UIP/IPF which has progressed from 2016. Severe COPD. Severe hyponatremia, suspect SIADH. Improving on current sodium 134 Hyponatremic encephalopathy, improving Hypoglycemia, improved. Currently hyperglycemic Anion gap metabolic acidosis Acute on chronic anemia, current hemoglobin 7.6 Hypothyroidism Herpes zoster History of abdominal wall cellulitis Leukocytosis Chronic pulmonary fibrosis Chronic obstructive pulmonary disease Chronic hypoxemic respiratory failure History of pulmonary embolism, status post IVC filter Diabetes mellitus, insulin-dependent Hyperlipidemia Remote CVA Coronary artery disease, with previous coronary stents History of pancreatitis Chronic pain Peripheral neuropathy History of migraines Plan: The patient was seen and evaluated Labs and medications reviewed Currently on a heparin drip Could be transitioned to Xa inhibitor Titrate down the FiO2 as tolerated Plan is to return to an ECF at discharge We will continue to follow This patient was seen independently by the nurse practitioner I have personally seen and examined the patient, performed the documentation and the assessment and plan as written. Number of minutes spent on the visit: 24.
[2023-08-23] MEDS: MIDODRINE 5 MG TAB PO SCH ×3 (08:51→16:59)
[2023-08-23] MEDS: buPROPion 75 MG TAB PO SCH ×2 (09:02→21:22)
[2023-08-23] MEDS: MAGNESIUM OXIDE 400 MG TAB PO SCH (09:02)
[2023-08-23] MEDS: droNABinol 2.5 MG CAP PO SCH ×2 (09:02→21:21)
[2023-08-23] MEDS: PANTOPRAZOLE 40 MG TABLET PO SCH (09:03)
[2023-08-23] MEDS: QUEtiapine 25 MG TAB PO SCH ×3 (09:03→21:22)
[2023-08-23] MEDS: CARBAMIDE PEROXIDE 6.5% DROPS 15 ML BTL BOTH EARS SCH ×2 (09:03→21:22)
[2023-08-23] MEDS: GABAPENTIN 100 MG CAP PO SCH ×3 (09:03→21:22)
[2023-08-23] MEDS: ASPIRIN 81 MG PO SCH (09:03)
[2023-08-23] MEDS: TAMSULOSIN 0.4 MG CAP.ER.24H PO SCH (09:03)
[2023-08-23 10:40] LABS: Glucose,Whole Blood 205 mg/dL (70-110)
--- NOTE | 2023-08-23 12:25 | P.PN ---
Subjective Patient is seen in follow-up for hyponatremia. Maintained on half normal saline Last sodium level on 08/20/2023 was 134. No significant complaints today. Objective - Vital Signs Vital signs: Vital Signs Temp 97.6 F 08/23/23 08:00 Pulse 100 08/23/23 08:26 Resp 17 08/23/23 08:00 BP 155/77 08/23/23 08:00 Pulse Ox 100 08/23/23 08:00 FiO2 Intake & Output 08/22/23 08/23/23 08/23/23 18:59 06:59 18:59 Intake Total 1146.077 732.461 Output Total 1700 1200 Balance -553.923 -467.539 Weight 64.5 kg Intake: Intake, IV Titration 81.077 142.461 Amount Heparin Sod,Pork in 0.45% 81.077 142.461 NaCl 25,000 unit In 0.45 % NaCl 1 250ml.bag @ 12 UNITS/KG/HR 4.92 mls/hr IV .Q24H REPLACED BY [facility] Rx#: [id number] Oral 1065 590 Output: Urine 1700 1200 Uretheral (Costa) 200 Other: Voiding Method Indwelling Catheter Indwelling Catheter - Exam Patient is sleeping but arousable Examination of the heart S1 and S2 Examination the lungs bilateral breath sounds are heard Abdomen is soft nontender Examination of the lower extremities shows no significant edema INSPECTOR PLATING exam grossly intact - Labs CBC & Chem 7: 08/22/23 07:33 08/20/23 11:08 Labs: Abnormal Lab Results - Last 24 Hours (Table) 08/22/23 08/22/23 08/22/23 Range/Units 14:43 18:07 18:15 APTT 37.2 H (22.0-30.0) sec POC Glucose (mg/dL) 243 H 178 H (70-110) mg/dL 08/22/23 08/23/23 08/23/23 Range/Units 21:00 01:57 02:09 APTT 47.6 H (22.0-30.0) sec POC Glucose (mg/dL) 183 H 334 H (70-110) mg/dL 08/23/23 08/23/23 08/23/23 Range/Units 04:21 05:14 10:38 APTT 43.1 H (22.0-30.0) sec POC Glucose (mg/dL) 241 H 205 H (70-110) mg/dL Microbiology - Last 24 Hours (Table) 08/16/23 23:30 Blood Culture - Final Blood 08/16/23 23:20 Blood Culture - Final Blood Assessment and Plan Assessment: 1. 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 Also component of urinary retention. Sodium level 134 on 08/20/2023. Urine sodium 111 and urine osmolality 430. TSH elevated at 18.7 this admission. 2. Metabolic acidosis secondary to ketoacidosis. Improved. 3. Hypothyroidism maintained on Synthroid. 4. Metastatic lung cancer. 5. Diabetes mellitus. 6. History of coronary artery disease. 7. Urinary retention. Costa catheter placed 08/17/2023. On Flomax. Urology on consult Plan: Okay to DC IV fluids Check labs today Continue to encourage increase oral intake Continue Costa cath
[2023-08-23 13:23] LABS: Basophils # (A) 0 X 10*3/uL (0.00-0.10); Basophils % (A) 0 %; Eosinophils # (A) 0 X 10*3/uL (0.04-0.35); Eosinophils % (A) 0 %; HCT 21.9 % (39.6-50.0); Lymphocytes # (A) 0.47 X 10*3/uL (0.90-5.00); Lymphocytes % (A) 5.4 %; MCH 33.2 pg (27.0-32.0); MCV 103.8 FL (80.0-97.0); Mean Platelet Volume 9.9 FL (9.5-12.2); Monocytes # (A) 0.36 X 10*3/uL (0.20-1.00); Monocytes % (A) 4.1 %; NRBC Per 100 WBC 0 X 10*3/uL (0.00-0.01); Neutrophils # (A) 7.81 X 10*3/uL (1.80-7.70); Neutrophils % (A) 89.9 %; Platelet Count 158 X 10*3/uL (140-440); RBC 2.11 X 10*6/uL (4.40-5.60); RDW 21.7 % (11.5-14.5); WBC 8.69 X 10*3/uL (4.50-10.00)
[2023-08-23 13:28] LABS: ALT 16 U/L (10-49); AST 20 U/L (14-35); Albumin 2.9 d/dL (3.8-4.9); Albumin/Globulin Ratio 1.38 Ratio (1.60-3.17); Alkaline Phosphatase 123 U/L (41-126); BUN/Creat Ratio 14.44 Ratio (12.00-20.00); Calcium 8.3 mg/dL (8.7-10.3); Carbon Dioxide 30.3 mmol/L (21.6-31.8); Chloride 94 mmol/L (96-109); Globulin 2.1 d/dL (1.6-3.3); Glucose 263 mg/dL (70-110); Sodium 138 mmol/L (135-145); Total Bilirubin <0.2 mg/dL (0.3-1.2)
[2023-08-23 14:17] LABS: Glucose,Whole Blood 233 mg/dL (70-110)
[2023-08-23] MEDS: POTASSIUM CHLORIDE ER 20 MEQ TAB.ER PO SCH ×2 (15:45→18:20)
[2023-08-23 17:50] LABS: Glucose,Whole Blood 178 mg/dL (70-110)
[2023-08-23 19:02] LABS: Glucose,Whole Blood 174 mg/dL (70-110)
[2023-08-23] MEDS ORDERED: IPRATROPIUM-ALBUTEROL 3 ML NEB INHALATION PRN (20:01)
[2023-08-23] MEDS: DOCUSATE 100 MG CAP PO SCH (21:21)
[2023-08-23] MEDS: ATORVASTATIN 80 MG TAB PO SCH (21:21)
[2023-08-23] MEDS: EZETIMIBE 10 MG TAB PO SCH (21:22)
--- NOTE | 2023-08-23 22:44 | PN ---
PROGRESS NOTE SUBJECTIVE: A 63-year-old white male. He is a little bit more alert, but he sleeps a lot. His pulse is near 100. He has a positive pulmonary embolism. He is on 3 L oxygen. Pulmonary has been seen as well as Renal. He is on blood thinners currently for PE. He is on half-normal saline. His sodium was 134. OBJECTIVE: VITAL SIGNS: His blood pressure 153/77, temp 97.6, O2 saturation 100. HEART: S1, S2. LUNGS: [place]. ABDOMEN: Soft. EXTREMITIES: No cyanosis, clubbing, or edema. NEURO: Cranial nerves are intact. LABORATORY DATA: White count is 8.3, hemoglobin is 7.8. Sodium was 134, potassium 3.8. ASSESSMENT: Hyponatremia secondary to syndrome of inappropriate antidiuretic hormone secretion from malignancy, poor solute intake. TSH is elevated, so he recently increased his thyroid medicine. Metabolic acidosis secondary to ketoacidosis, metastatic lung cancer, diabetes mellitus, coronary artery disease, urinary retention. Follow up with fluid intake. Continue to treat for pulmonary embolism, blood thinners, diabetic control with insulin, etc. Prognosis guarded due to his metastatic cancer. MMODL / IJN: [id number] /
[2023-08-23 23:35] LABS: Glucose,Whole Blood 228 mg/dL (70-110)
[2023-08-24 02:37] LABS: Glucose,Whole Blood 312 mg/dL (70-110)
[2023-08-24] MEDS: HYDROcodone/APAP 5-325MG 1 EACH TAB PO PRN ×2 (02:39→16:01)
[2023-08-24] MEDS: INSULIN ASPART (NovoLOG) 100 UNIT/ML VIAL SQ SCH ×6 (02:40→22:54)
[2023-08-24] MEDS: LEVOTHYROXINE 125 MCG TAB PO SCH (06:12)
[2023-08-24 06:20] LABS: Glucose,Whole Blood 243 mg/dL (70-110)
[2023-08-24] MEDS: droNABinol 2.5 MG CAP PO SCH ×2 (07:24→21:09)
[2023-08-24] MEDS: PANTOPRAZOLE 40 MG TABLET PO SCH (07:24)
[2023-08-24] MEDS: DOCUSATE 100 MG CAP PO SCH ×2 (07:24→21:09)
[2023-08-24] MEDS: QUEtiapine 25 MG TAB PO SCH ×3 (07:24→21:09)
[2023-08-24] MEDS: MAGNESIUM OXIDE 400 MG TAB PO SCH (07:24)
[2023-08-24] MEDS: ASPIRIN 81 MG PO SCH (07:24)
[2023-08-24] MEDS: GABAPENTIN 100 MG CAP PO SCH ×3 (07:24→21:09)
[2023-08-24] MEDS: INSULIN DETEMIR (LEVEMIR) 100 UNIT/ML SYR SQ SCH (07:24)
[2023-08-24] MEDS: CARBAMIDE PEROXIDE 6.5% DROPS 15 ML BTL BOTH EARS SCH ×2 (07:25→21:10)
[2023-08-24] MEDS: MIDODRINE 5 MG TAB PO SCH ×3 (07:25→17:21)
[2023-08-24] MEDS: TAMSULOSIN 0.4 MG CAP.ER.24H PO SCH (07:25)
[2023-08-24] MEDS: buPROPion 75 MG TAB PO SCH ×2 (07:25→21:09)
[2023-08-24] MEDS: BUDESONIDE 0.5 MG/2 ML NEBU INHALATION SCH ×2 (07:32→18:29)
[2023-08-24] MEDS: IPRATROPIUM-ALBUTEROL 3 ML NEB INHALATION SCH ×4 (07:32→18:29)
[2023-08-24] MEDS: HEPARIN SODIUM 1,000 UN/ML (10ML VL) IV PRN (07:35)
[2023-08-24 09:01] LABS: HGB 7.9 d/dL (13.0-17.0); MCH 33.5 pg (27.0-32.0); MCHC 32.9 d/dL (32.0-37.0); MCV 101.7 FL (80.0-97.0); Mean Platelet Volume 9.5 FL (9.5-12.2); NRBC Per 100 WBC 0.03 X 10*3/uL (0.00-0.01); Platelet Count 188 X 10*3/uL (140-440); RBC 2.36 X 10*6/uL (4.40-5.60); RDW 22.1 % (11.5-14.5); WBC 10.18 X 10*3/uL (4.50-10.00)
[2023-08-24 09:03] LABS: BUN/Creat Ratio 15.75 Ratio (12.00-20.00); Blood Urea Nitrogen 12.6 mg/dL (9.0-27.0); Chloride 95 mmol/L (96-109); Glucose 176 mg/dL (70-110); Potassium 3.3 mmol/L (3.5-5.5); Sodium 140 mmol/L (135-145)
[2023-08-24 09:04] LABS: Calcium 8.4 mg/dL (8.7-10.3); Carbon Dioxide 34.9 mmol/L (21.6-31.8)
[2023-08-24] MEDS: HYDROCORTISONE SUCCINATE 100 MG/2 ML VIAL IV SCH ×2 (09:46→17:39)
[2023-08-24 09:56] LABS: Acanthocytes 2+; Anisocytosis (M) 2+; Basophils # (A) 0 X 10*3/uL (0.00-0.10); Basophils % (A) 0 %; Eosinophils # (A) 0 X 10*3/uL (0.04-0.35); Eosinophils % (A) 0 %; Hypochromasia (M) 2+; Lymphocytes # (A) 0.62 X 10*3/uL (0.90-5.00); Lymphocytes % (A) 6.1 %; Macrocytosis (M) 2+; Monocytes # (A) 0.55 X 10*3/uL (0.20-1.00); Monocytes % (A) 5.4 %; Neutrophils # (A) 8.91 X 10*3/uL (1.80-7.70); Neutrophils % (A) 87.5 %
[2023-08-24 11:08] LABS: Glucose,Whole Blood 219 mg/dL (70-110)
[2023-08-24] MEDS ORDERED: RX INFO: IV CONTRAST WAS GIVEN 1 EACH MISC MISCELLANE PRN (11:21)
[2023-08-24] MEDS: HEPARIN SOD,PORK IN 0.45% NACL 25,000 UNIT in 0.45% NACL 1 250ML.BAG IV SCH (11:42)
--- NOTE | 2023-08-24 12:32 | P.PN ---
Subjective Patient is seen in follow-up for hyponatremia. IV fluids discontinued yesterday Sodium 140 No significant complaints today. Objective - Vital Signs Vital signs: Vital Signs Temp 98 F 08/24/23 07:41 Pulse 104 H 08/24/23 07:52 Resp 24 08/24/23 07:41 BP 154/89 08/24/23 07:41 Pulse Ox 100 08/24/23 07:41 FiO2 Intake & Output 08/23/23 08/24/23 08/24/23 18:59 06:59 18:59 Intake Total 860 225.202 Output Total 2200 2550 Balance -2200 -1690 225.202 Weight 64.5 kg Intake: Intake, IV Titration 225.202 Amount Heparin Sod,Pork in 0.45% 225.202 NaCl 25,000 unit In 0.45 % NaCl 1 250ml.bag @ 12 UNITS/KG/HR 4.92 mls/hr IV .Q24H [facility] Rx#: [id number] Oral 860 Output: Urine 2200 2550 Other: Voiding Method Indwelling Catheter Indwelling Catheter Indwelling Catheter - Exam Patient is sleeping but arousable Examination of the heart S1 and S2 Examination the lungs bilateral breath sounds are heard Abdomen is soft nontender Examination of the lower extremities shows no significant edema MANAGER SWITCH exam grossly intact - Labs CBC & Chem 7: 08/24/23 05:33 08/24/23 05:33 Labs: Abnormal Lab Results - Last 24 Hours (Table) 08/23/23 08/23/23 08/23/23 Range/Units 04:21 04:21 12:11 WBC (4.50-10.00) X 10*3/uL RBC 2.11 L (4.40-5.60) X 10*6/uL Hgb 7.0 L (13.0-17.0) d/dL Hct 21.9 L (39.6-50.0) % MCV 103.8 H (80.0-97.0) FL MCH 33.2 H (27.0-32.0) pg RDW 21.7 H (11.5-14.5) % Neutrophils # 7.81 H (1.80-7.70) X 10*3/uL Lymphocytes # 0.47 L (0.90-5.00) X 10*3/uL Eosinophils # 0 L (0.04-0.35) X 10*3/uL NRBC/100 WBC Diff (0.00-0.01) X 10*3/uL Hypochromasia (manual) Anisocytosis (manual) Macrocytosis (manual) Acanthocytes (Spur) APTT 44.7 H (22.0-30.0) sec Potassium 3.0 L (3.5-5.5) mmol/L Chloride 94 L (96-109) mmol/L Carbon Dioxide (21.6-31.8) mmol/L Anion Gap 13.70 H (4.00-12.00) mmol/L Glucose 263 H (70-110) mg/dL POC Glucose (mg/dL) (70-110) mg/dL Calcium 8.3 L (8.7-10.3) mg/dL Total Bilirubin <0.2 L (0.3-1.2) mg/dL Total Protein 5.0 L (6.2-8.2) d/dL Albumin 2.9 L (3.8-4.9) d/dL Albumin/Globulin Ratio 1.38 L (1.60-3.17) Ratio 08/23/23 08/23/23 08/23/23 Range/Units 14:16 17:49 19:00 WBC (4.50-10.00) X 10*3/uL RBC (4.40-5.60) X 10*6/uL Hgb (13.0-17.0) d/dL Hct (39.6-50.0) % MCV (80.0-97.0) FL MCH (27.0-32.0) pg RDW (11.5-14.5) % Neutrophils # (1.80-7.70) X 10*3/uL Lymphocytes # (0.90-5.00) X 10*3/uL Eosinophils # (0.04-0.35) X 10*3/uL NRBC/100 WBC Diff (0.00-0.01) X 10*3/uL Hypochromasia (manual) Anisocytosis (manual) Macrocytosis (manual) Acanthocytes (Spur) APTT (22.0-30.0) sec Potassium (3.5-5.5) mmol/L Chloride (96-109) mmol/L Carbon Dioxide (21.6-31.8) mmol/L Anion Gap (4.00-12.00) mmol/L Glucose (70-110) mg/dL POC Glucose (mg/dL) 233 H 178 H 174 H (70-110) mg/dL Calcium (8.7-10.3) mg/dL Total Bilirubin (0.3-1.2) mg/dL Total Protein (6.2-8.2) d/dL Albumin (3.8-4.9) d/dL Albumin/Globulin Ratio (1.60-3.17) Ratio 08/23/23 08/24/23 08/24/23 Range/Units 23:30 02:33 05:33 WBC (4.50-10.00) X 10*3/uL RBC (4.40-5.60) X 10*6/uL Hgb (13.0-17.0) d/dL Hct (39.6-50.0) % MCV (80.0-97.0) FL MCH (27.0-32.0) pg RDW (11.5-14.5) % Neutrophils # (1.80-7.70) X 10*3/uL Lymphocytes # (0.90-5.00) X 10*3/uL Eosinophils # (0.04-0.35) X 10*3/uL NRBC/100 WBC Diff (0.00-0.01) X 10*3/uL Hypochromasia (manual) Anisocytosis (manual) Macrocytosis (manual) Acanthocytes (Spur) APTT 41.8 H (22.0-30.0) sec Potassium (3.5-5.5) mmol/L Chloride (96-109) mmol/L Carbon Dioxide (21.6-31.8) mmol/L Anion Gap (4.00-12.00) mmol/L Glucose (70-110) mg/dL POC Glucose (mg/dL) 228 H 312 H (70-110) mg/dL Calcium (8.7-10.3) mg/dL Total Bilirubin (0.3-1.2) mg/dL Total Protein (6.2-8.2) d/dL Albumin (3.8-4.9) d/dL Albumin/Globulin Ratio (1.60-3.17) Ratio 10/08/24/23 08/24/23 Range/Units 05:33 05:33 06:18 WBC 10.18 H (4.50-10.00) X 10*3/uL RBC 2.36 L (4.40-5.60) X 10*6/uL Hgb 7.9 L (13.0-17.0) d/dL Hct 24.0 L (39.6-50.0) % MCV 101.7 H (80.0-97.0) FL MCH 33.5 H (27.0-32.0) pg RDW 22.1 H (11.5-14.5) % Neutrophils # 8.91 H (1.80-7.70) X 10*3/uL Lymphocytes # 0.62 L (0.90-5.00) X 10*3/uL Eosinophils # 0 L (0.04-0.35) X 10*3/uL NRBC/100 WBC Diff 0.03 H (0.00-0.01) X 10*3/uL Hypochromasia (manual) 2+ A Anisocytosis (manual) 2+ A Macrocytosis (manual) 2+ A Acanthocytes (Spur) 2+ A APTT (22.0-30.0) sec Potassium 3.3 L (3.5-5.5) mmol/L Chloride 95 L (96-109) mmol/L Carbon Dioxide 34.9 H (21.6-31.8) mmol/L Anion Gap (4.00-12.00) mmol/L Glucose 176 H (70-110) mg/dL POC Glucose (mg/dL) 243 H (70-110) mg/dL Calcium 8.4 L (8.7-10.3) mg/dL Total Bilirubin (0.3-1.2) mg/dL Total Protein (6.2-8.2) d/dL Albumin (3.8-4.9) d/dL Albumin/Globulin Ratio (1.60-3.17) Ratio 08/24/23 08/24/23 Range/Units 11:07 11:26 WBC (4.50-10.00) X 10*3/uL RBC (4.40-5.60) X 10*6/uL Hgb (13.0-17.0) d/dL Hct (39.6-50.0) % MCV (80.0-97.0) FL MCH (27.0-32.0) pg RDW (11.5-14.5) % Neutrophils # (1.80-7.70) X 10*3/uL Lymphocytes # (0.90-5.00) X 10*3/uL Eosinophils # (0.04-0.35) X 10*3/uL NRBC/100 WBC Diff (0.00-0.01) X 10*3/uL Hypochromasia (manual) Anisocytosis (manual) Macrocytosis (manual) Acanthocytes (Spur) APTT 57.3 H (22.0-30.0) sec Potassium (3.5-5.5) mmol/L Chloride (96-109) mmol/L Carbon Dioxide (21.6-31.8) mmol/L Anion Gap (4.00-12.00) mmol/L Glucose (70-110) mg/dL POC Glucose (mg/dL) 219 H (70-110) mg/dL Calcium (8.7-10.3) mg/dL Total Bilirubin (0.3-1.2) mg/dL Total Protein (6.2-8.2) d/dL Albumin (3.8-4.9) d/dL Albumin/Globulin Ratio (1.60-3.17) Ratio Assessment and Plan Assessment: 1. 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 Also component of urinary retention. Sodium level 140. Urine sodium 111 and urine osmolality 430. TSH elevated at 18.7 this admission. 2. Metabolic acidosis secondary to ketoacidosis. Improved. 3. Hypothyroidism maintained on Synthroid. 4. Metastatic lung cancer. 5. Diabetes mellitus. 6. History of coronary artery disease. 7. Urinary retention. Costa catheter placed 08/17/2023. On Flomax. Urology on consult Plan: Replace potassium Continue off of IV fluids.
--- NOTE | 2023-08-24 14:40 | P.PN ---
Subjective Progress Note Date: 08/24/23 Principal diagnosis: Metastatic NSCLC. Currently admitted for hyponatremia and highly variable blood sugars In f/u today pt mental status cont to be labile, at times he is alert, oriented to self place, time, he does not seem to have a clear understanding of his medical situation. Today when seen, he was a little bit difficult to arouse, when he was aroused he asked "what's going on", patient is updated every time he is seen on what is going on. Patient was admitted with hyponatremia and highly labile blood glucose, these are both now under control,Sodium 140, blood glucose in the 200s. Patient is tearful at times. Reviewed CT of the chest results with him. Objective - Vital Signs Vital signs: Vital Signs Temp 98.4 F 08/24/23 13:12 Pulse 101 H 08/24/23 13:12 Resp 20 08/24/23 13:12 BP 127/77 08/24/23 13:12 Pulse Ox 100 08/24/23 13:12 FiO2 Intake & Output 08/23/23 08/24/23 08/24/23 18:59 06:59 18:59 Intake Total 860 233.060 Output Total 2200 2550 Balance -2200 -1690 233.060 Weight 64.5 kg Intake: Intake, IV Titration 233.060 Amount Heparin Sod,Pork in 0.45% 233.060 NaCl 25,000 unit In 0.45 % NaCl 1 250ml.bag @ 12 UNITS/KG/HR 4.92 mls/hr IV .Q24H [facility] Rx#: [id number] Oral 860 Output: Urine 2200 2550 Other: Voiding Method Indwelling Catheter Indwelling Catheter Indwelling Catheter - Constitutional General appearance: Present: cooperative, mild distress, thin - EENT Eyes: Present: anicteric sclerae, EOMI ENT: Present: hearing grossly normal - Respiratory Details: Respirations even and unlabored at rest - Cardiovascular Details: Radial pulses 2+ - Peripheral edema leg Peripheral Edema: bilateral: None - Integumentary Integumentary: Present: pale - Neurologic Neurologic: Present: CNII-XII intact - Musculoskeletal Musculoskeletal: Present: generalized weakness - Psychiatric Psychiatric Comment(s): Labile affect, tearful at times, patient is oriented to self, place, time. His current medical condition and reason for his hospitalization are confusing to him Psychiatric: Present: A&O x's 3 - Labs CBC & Chem 7: 08/24/23 05:33 08/24/23 05:33 Labs: Abnormal Lab Results - Last 24 Hours (Table) 08/23/23 08/23/23 08/23/23 Range/Units 14:16 17:49 19:00 WBC (4.50-10.00) X 10*3/uL RBC (4.40-5.60) X 10*6/uL Hgb (13.0-17.0) d/dL Hct (39.6-50.0) % MCV (80.0-97.0) FL MCH (27.0-32.0) pg RDW (11.5-14.5) % Neutrophils # (1.80-7.70) X 10*3/uL Lymphocytes # (0.90-5.00) X 10*3/uL Eosinophils # (0.04-0.35) X 10*3/uL NRBC/100 WBC Diff (0.00-0.01) X 10*3/uL Hypochromasia (manual) Anisocytosis (manual) Macrocytosis (manual) Acanthocytes (Spur) APTT (22.0-30.0) sec Potassium (3.5-5.5) mmol/L Chloride (96-109) mmol/L Carbon Dioxide (21.6-31.8) mmol/L Glucose (70-110) mg/dL POC Glucose (mg/dL) 233 H 178 H 174 H (70-110) mg/dL Calcium (8.7-10.3) mg/dL 08/23/23 08/24/23 08/24/23 Range/Units 23:30 02:33 05:33 WBC (4.50-10.00) X 10*3/uL RBC (4.40-5.60) X 10*6/uL Hgb (13.0-17.0) d/dL Hct (39.6-50.0) % MCV (80.0-97.0) FL MCH (27.0-32.0) pg RDW (11.5-14.5) % Neutrophils # (1.80-7.70) X 10*3/uL Lymphocytes # (0.90-5.00) X 10*3/uL Eosinophils # (0.04-0.35) X 10*3/uL NRBC/100 WBC Diff (0.00-0.01) X 10*3/uL Hypochromasia (manual) Anisocytosis (manual) Macrocytosis (manual) Acanthocytes (Spur) APTT 41.8 H (22.0-30.0) sec Potassium (3.5-5.5) mmol/L Chloride (96-109) mmol/L Carbon Dioxide (21.6-31.8) mmol/L Glucose (70-110) mg/dL POC Glucose (mg/dL) 228 H 312 H (70-110) mg/dL Calcium (8.7-10.3) mg/dL 08/24/23 08/24/23 08/24/23 Range/Units 05:33 05:33 06:18 WBC 10.18 H (4.50-10.00) X 10*3/uL RBC 2.36 L (4.40-5.60) X 10*6/uL Hgb 7.9 L (13.0-17.0) d/dL Hct 24.0 L (39.6-50.0) % MCV 101.7 H (80.0-97.0) FL MCH 33.5 H (27.0-32.0) pg RDW 22.1 H (11.5-14.5) % Neutrophils # 8.91 H (1.80-7.70) X 10*3/uL Lymphocytes # 0.62 L (0.90-5.00) X 10*3/uL Eosinophils # 0 L (0.04-0.35) X 10*3/uL NRBC/100 WBC Diff 0.03 H (0.00-0.01) X 10*3/uL Hypochromasia (manual) 2+ A Anisocytosis (manual) 2+ A Macrocytosis (manual) 2+ A Acanthocytes (Spur) 2+ A APTT (22.0-30.0) sec Potassium 3.3 L (3.5-5.5) mmol/L Chloride 95 L (96-109) mmol/L Carbon Dioxide 34.9 H (21.6-31.8) mmol/L Glucose 176 H (70-110) mg/dL POC Glucose (mg/dL) 243 H (70-110) mg/dL Calcium 8.4 L (8.7-10.3) mg/dL 08/24/23 08/24/23 Range/Units 11:07 11:26 WBC (4.50-10.00) X 10*3/uL RBC (4.40-5.60) X 10*6/uL Hgb (13.0-17.0) d/dL Hct (39.6-50.0) % MCV (80.0-97.0) FL MCH (27.0-32.0) pg RDW (11.5-14.5) % Neutrophils # (1.80-7.70) X 10*3/uL Lymphocytes # (0.90-5.00) X 10*3/uL Eosinophils # (0.04-0.35) X 10*3/uL NRBC/100 WBC Diff (0.00-0.01) X 10*3/uL Hypochromasia (manual) Anisocytosis (manual) Macrocytosis (manual) Acanthocytes (Spur) APTT 57.3 H (22.0-30.0) sec Potassium (3.5-5.5) mmol/L Chloride (96-109) mmol/L Carbon Dioxide (21.6-31.8) mmol/L Glucose (70-110) mg/dL POC Glucose (mg/dL) 219 H (70-110) mg/dL Calcium (8.7-10.3) mg/dL - Imaging and Cardiology CT scan - chest: report reviewed Assessment and Plan (1) Anemia Current Visit: Yes Status: Acute Priority: Medium Code(s): D64.9 - ANEMIA, UNSPECIFIED SNOMED Code(s): 193506852 (2) Hypoglycemia Current Visit: Yes Status: Resolved Priority: High Code(s): E16.2 - HYPOGLYCEMIA, UNSPECIFIED SNOMED Code(s): 871961684 (3) Hyponatremia Current Visit: Yes Status: Resolved Priority: High Code(s): E87.1 - HYPO- OSMOLALITY AND HYPONATREMIA SNOMED Code(s): 72094747 (4) Adenocarcinoma of lung, stage 4 Current Visit: Yes Status: Chronic Priority: High Code(s): C34.90 - MALIGNANT NEOPLASM OF UNSP PART OF UNSP BRONCHUS OR LUNG SNOMED Code(s): 467769463 Plan: Uncontrolled diabetes -Patient spent nearly 3 weeks at [facility], with multiple adjustments to his medications to try and control his blood sugars. He has been admitted here for 8 days -blood glucose seems to be better controlled Hyponatremia-Resolved -Nephrology following Metastatic non-small cell lung cancer -Patient has not been out of the hospital long enough to proceed forward with any treatment. Last imaging was just about 6 weeks ago. There was no evidence of disease progression, some areas were questionable for some slight progress. [place] to be a pseudo-progression from immunotherapy. Plan was to cont on treatment and reassess after 3 more cycles -CTA of the chest done to rule out PE-no PE reported. Reported that there is some progression of known lung lesions and a new RLL 1.7cm mass soft tissue mass seen-this was discussed with the pt. -Due to patient's persistent encephalopathy symptoms CT if the head with contrast was ordered. If no new findings, may consider LP. -Immunotherapy-related side effects have been worked up extensively, all results have been normal when assessed. Nothing to suggest immunotherapy as a cause for pt current condition Anemia -Multifactorial including inflammation, prolonged illness/hospitalization. -Anemia workup most consistent with anemia of inflammation, saturation is normal. No deficiency to be supplemented at this time. -Hgb 7.9 today, no transfusions needed. Transfuse for Hgb <7 Will plan for family meeting to discuss pt condition from an Oncology standpoint
--- NOTE | 2023-08-24 14:44 | CT ---
EXAMINATION TYPE: CT brain w con CT DLP: 1171.40 mGycm, Automated exposure control for dose reduction was used. DATE OF EXAM: 08/24/2023 2:32 PM COMPARISON: CT brain 08/16/2023. CLINICAL INDICATION:Male, 63 years old with history of concern for progression/recurrence of brain me ts; PHH, Progression/recurrence brain mets TECHNIQUE: Axial CT images of the brain were obtained with contrast enhanced axial images of the brai n with 100 cc of Isovue-300 IV contrast. One or more CT dose reduction strategies were utilized durin g this examination. Coronal and sagittal reformats reviewed. FINDINGS: Extra-axial spaces: No abnormal extra-axial fluid collections. Ventricular system: Within normal limits Cerebral parenchyma: Cerebral atrophy. No acute intraparenchymal hemorrhage or mass effect. The garrison -white junction is well differentiated. Scattered hypoattenuating areas are seen within the white mat ter. No abnormal enhancement is seen after the administration of intravenous contrast. Cerebellum: Postsurgical changes with hypodense region within the right cerebellum with a 3 mm focus of hyperdensity (series 3, image 17). From prior examination when there was more ring enhancement. Mass effect: No evidence of midline shift. Intracranial vasculature: Atherosclerotic calcifications of the intracranial vessels. Soft tissues: Postsurgical changes around the posterior neck. Decreased enhancement along the resecti on cavity (series 3, image 5). Partial visualization of stimulator lead within the posterior left nec k. Calvarium/osseous structures: No depressed skull fracture. Postsurgical changes of the right occipita l bone. Incomplete fusion of posterior arch of C1. Paranasal sinuses and mastoid air cells: Opacification of the bilateral mastoid air cells. Visualized orbits: Orbital contents are intact. IMPRESSION: 1. Postsurgical changes from excision in the right cerebellar hemisphere. There is decreased enhance ment along the resection margin and surgical tract from prior examination which may represent positiv e response to therapy versus resolving postsurgical changes. No new suspicious metastatic lesions. 2. Nonspecific white matter changes likely related to chronic small vessel skin disease. 3. Bilateral mastoid effusions. Correlate for mastoiditis.
[2023-08-24 15:56] LABS: Glucose,Whole Blood 209 mg/dL (70-110)
[2023-08-24 17:26] LABS: Glucose,Whole Blood 190 mg/dL (70-110)
--- NOTE | 2023-08-24 17:48 | P.PN ---
Subjective Progress Note Date: 08/24/23 I am seeing this patient in new consultation today 08/17/2023 in the intensive care unit after he presented from [facility] with altered mental status. Patient is a 63-year-old male with past medical history significant for metastatic lung cancer, pulmonary fibrosis, COPD, type 1 diabetes mellitus, hypertension, hyperlipidemia, pulmonary embolism, among other things. Patient does follow with his oncologist Dr. Heredia for management of his metastatic lung cancer, and had been receiving a combination of Carbolplatin/Alimta/Keytuda, but is on hold in light of his recent soft tissue abdominal well cellulitis/abscess. This reportedly developed from an old insulin pump subcutaneous site. Emiliano arently, the patient was recently hospitalized at [facility] for abdominal wall cellulitis and hyponatremia. He also was found to have shingles, and started on antivirals. Patient was then discharged to [facility] rehab facility. At the outside facility, he was found to be confused. It was felt this correlated with his [place] administration, however, he was found to have abnormal blood glucose readings. on arrival to the emergency room, a nonenhanced brain CT did not show any acute intracranial abnormality. It did show generalized atrophy and remote infarct/consult of the right cerebral hemisphere. Chest x-ray on arrival showed chronic fibrotic changeswithout any acute cardio pulmonary process. Patient is currently lying in bed, on 2 L/m nasal cannula, in no acute distress. He is still confused and having visual hallucinations. His sodium was found to be severely low at 115, and he was started on a hypertonic saline infusion which is currently running at 30 MLS per hour. He was also hypoglycemic in the emergency room, and started on a D10W. This is currently on hold, because the patient is now hyperglycemic.CBC on arrival showed a WBC count of 12.4, hemoglobin 8.6, hematocrit 23.7, platelets 205. Most recent BMP from around midnight showed a sodium 112, potassium 5, chloride 82, serum bicarb 19, BUN 17, creatinine 0.77, glucose 259. Serum osmolality was 244. Urine osmolality was 430. Urine sodium 111. hyponatremia is being managed by nephrology. TSH was elevated at 18.7 and free T4 0.58. Patient had reportedly been refusing his medications. UA not concerning for UTI. No documented fevers. Restarted on Cefazolin and Acyclovir. Patient is admitted to the intensive care unit. Progress note dated 08/18/2023. 63-year-old male seen yesterday in consultation, for mental status changes, in part related to hyponatremia. The patient has history of metastatic lung cancer, pulmonary fibrosis, COPD, diabetes, hypertension, hyperlipidemia, pulmonary embolism, and multiple other medical problems. The patient was admitted with a sodium of 112. Currently, his sodium is 127. He seen in the intensive care unit, room 253. Currently, he's on 2 L of oxygen. He is getting norepinephrine at 2 mcg/m, Precedex for agitation is 0.2 mcg/kg per hour. Saline running at 10 mL an hour. Seroquel, 25 mg 3 times a day for agitation. White count 13.1, hemoglobin 8.6, hematocrit 23.8, with a normal platelet count. Sodium 127, potassium 4.9, chlorides 91, CO2 18, anion gap 18, BUN 17, and creatinine 0.78. Progress note dated 08/19/2023. 63-year-old male seen in consultation a few days ago, for mental status changes, and hyponatremia. The patient is seen again in the intensive care unit, room 253. The patient has a history of metastatic lung cancer, pulmonary fibrosis, COPD, diabetes, hypertension, hyperlipidemia, pulmonary embolism, and other medical problems. Currently, his sodium is 134. He is currently on 2 L of oxygen. He is getting half-normal saline at 100 mL an hour. Norepinephrine has been weaned off. The patient's dexmedetomidine is also been off for some time. The patient clinically is doing much better. White count is 10.2, hemoglobin 7.1, hematocrit 20.8, and platelet count 218,000. Sodium 134, potassium 3.9, chlorides 98, CO2 28, BUN 13, creatinine 0.81. Albumin is 2.7. Blood cultures are negative. The patient is seen today 08/20/2023 in follow-up on the regular medical floor. He is currently resting in bed. Awake and alert in no acute distress. He is maintaining O2 saturations in the 90s on 2 L/m per nasal cannula. He has 0.45% normal saline at 100 ML's per hour. His current sodium is 134. Blood cultures revealed no growth. Blood sugar 232. He is continued on DuoNeb inhalations, Pulmicort inhalations. He remains on Solu-Cortef per nephrology. Todays labs are pending. The patient is seen today 08/21/2023 and follow-up on the regular medical floor. He is currently resting comfortably in bed. Awake and alert in no acute distress. He is complaining of some anterior chest pain. He is somewhat emotional today and teary-eyed. He is maintaining O2 saturations in the mid to upper 90s on 2 L/m per nasal cannula. He is afebrile. Hemodynamically stable. White count 7.7. Hemoglobin 7.3. Platelets 204. Troponin 0.037. Glucose 318. CT angiogram was performed and he was found to have an acute pulmonary embolus involving the segmental and subsegmental branches of the right upper lobe. Re latively mild burden. There is evidence of his metastatic lung cancer in the right lung. Extensive UIP/IPF progress from 2016. Severe COPD. Blood cultures reveal no growth. He is continued on DuoNeb inhalations, Pulmicort and Perforomist inhalations. 0.45% saline at 100 ML's per hour. He remains on Solu- Cortef. He remains on cefazolin. The patient is seen today 08/22/2023 in follow-up on the regular medical floor. He is awake and alert in no acute distress. More comfortable today compared to yesterday. He is maintaining O2 saturations in the 90s on 3 L/m per nasal cannula. He has 0.45% normal saline at 100 ML's per hour. He is now on a heparin drip due to his pulmonary embolism. Echocardiogram revealed preserved left ventricular systolic function with ejection fraction 50-55%. Normal right ventricular size and function. Normal RV pressures. Blood cultures reveal no growth. Glucose 197. Labs are pending. He is continued on DuoNeb inhalations, Pulmicort and Perforomist inhalations. He remains on Solu-Cortef per nephrology. The patient is seen today 08/23/2023 in follow-up on the regular medical floor. He sitting up in bed. Awake and alert in no acute distress. Oriented to time and place. He denies any worsening shortness of breath, cough or congestion. No hemoptysis. He is maintaining O2 saturations in the 90s on 3 L/m per nasal cannula. He has 0.45% normal saline running at 100 ML's per hour. He remains on a heparin drip. He remains on Solu-Cortef. Most recent labs reveal a white count of 8.3. Hemoglobin of 7.8. Platelets 204. He is continued on DuoNeb inhalations, Pulmicort inhalations. Today's evaluation of 08/24/2020 on seeing the patient for a follow-up. The patient is very much lethargic, weak, mental status is fluctuating. CAT scan of the chest was noted. CAT scan of the brain was noted. The white cycles of 10.1 with a hemoglobin of 7.9, platelet of 188, sodium is at 140, BUN is at 12 with a creatinine of 0.8. Remains on IV heparin. He has not been transitioned to long-acting anticoagulation yet. No other new complaints otherwise for now. Oxygenation remains stable and the patient remains on 3 L of oxygen by nasal cannula. Hemodynamically stable. Condition is essentially unchanged. Oncology is on the case. Objective - Vital Signs Vital signs: Vital Signs Temp 98.4 F 08/24/23 13:12 Pulse 100 08/24/23 15:20 Resp 20 08/24/23 13:12 BP 127/77 08/24/23 13:12 Pulse Ox 100 08/24/23 13:12 FiO2 Intake & Output 08/23/23 08/24/23 08/24/23 18:59 06:59 18:59 Intake Total 860 233.060 Output Total 2200 2550 850 Balance -2200 -1690 -616.940 Weight 64.5 kg Intake: Intake, IV Titration 233.060 Amount Heparin Sod,Pork in 0.45% 233.060 NaCl 25,000 unit In 0.45 % NaCl 1 250ml.bag @ 12 UNITS/KG/HR 4.92 mls/hr IV .Q24H [facility] Rx#: [id number] Oral 860 Output: Urine 2200 2550 850 Other: Voiding Method Indwelling Catheter Indwelling Catheter Indwelling Catheter - Exam GENERAL EXAM: Alert and oriented, thin 63-year-old male, resting in bed, on 3 liters nasal cannula. HEAD: Normocephalic and atraumatic EYES: Normal reaction of pupils, equal size. NOSE: Clear with pink turbinates. THROAT: No erythema or exudates. NECK: No masses, no JVD. CHEST: No chest wall deformity. There is a right chest Mediport, accessed LUNGS: Equal air entry with inspiratory crackles heard at the right lower base. No wheezes, rhonchi, or focal dullness. CVS: S1 and S2 normal with no audible murmur, regular rhythm. No extra heart sounds ABDOMEN: No hepatosplenomegaly, active bowel sounds, no guarding or rigidity. SPINE: No scoliosis or deformity SKIN: right upper arm open ulcerations CENTRAL NERVOUS SYSTEM: No focal deficits, tone is normal in all 4 extremities. EXTREMITIES: There is no peripheral edema, clubbing, or cyanosis. Peripheral pulses are intact. - Labs CBC & Chem 7: 08/24/23 05:33 08/24/23 05:33 Labs: Abnormal Lab Results - Last 24 Hours (Table) 08/23/23 08/23/23 08/23/23 Range/Units 17:49 19:00 23:30 WBC (4.50-10.00) X 10*3/uL RBC (4.40-5.60) X 10*6/uL Hgb (13.0-17.0) d/dL Hct (39.6-50.0) % MCV (80.0-97.0) FL MCH (27.0-32.0) pg RDW (11.5-14.5) % Neutrophils # (1.80-7.70) X 10*3/uL Lymphocytes # (0.90-5.00) X 10*3/uL Eosinophils # (0.04-0.35) X 10*3/uL NRBC/100 WBC Diff (0.00-0.01) X 10*3/uL Hypochromasia (manual) Anisocytosis (manual) Macrocytosis (manual) Acanthocytes (Spur) APTT (22.0-30.0) sec Potassium (3.5-5.5) mmol/L Chloride (96-109) mmol/L Carbon Dioxide (21.6-31.8) mmol/L Glucose (70-110) mg/dL POC Glucose (mg/dL) 178 H 174 H 228 H (70-110) mg/dL Calcium (8.7-10.3) mg/dL 08/24/23 08/24/23 08/24/23 Range/Units 02:33 05:33 05:33 WBC 10.18 H (4.50-10.00) X 10*3/uL RBC 2.36 L (4.40-5.60) X 10*6/uL Hgb 7.9 L (13.0-17.0) d/dL Hct 24.0 L (39.6-50.0) % MCV 101.7 H (80.0-97.0) FL MCH 33.5 H (27.0-32.0) pg RDW 22.1 H (11.5-14.5) % Neutrophils # 8.91 H (1.80-7.70) X 10*3/uL Lymphocytes # 0.62 L (0.90-5.00) X 10*3/uL Eosinophils # 0 L (0.04-0.35) X 10*3/uL NRBC/100 WBC Diff 0.03 H (0.00-0.01) X 10*3/uL Hypochromasia (manual) 2+ A Anisocytosis (manual) 2+ A Macrocytosis (manual) 2+ A Acanthocytes (Spur) 2+ A APTT 41.8 H (22.0-30.0) sec Potassium (3.5-5.5) mmol/L Chloride (96-109) mmol/L Carbon Dioxide (21.6-31.8) mmol/L Glucose (70-110) mg/dL POC Glucose (mg/dL) 312 H (70-110) mg/dL Calcium (8.7-10.3) mg/dL 08/24/23 08/24/23 08/24/23 Range/Units 05:33 06:18 11:07 WBC (4.50-10.00) X 10*3/uL RBC (4.40-5.60) X 10*6/uL Hgb (13.0-17.0) d/dL Hct (39.6-50.0) % MCV (80.0-97.0) FL MCH (27.0-32.0) pg RDW (11.5-14.5) % Neutrophils # (1.80-7.70) X 10*3/uL Lymphocytes # (0.90-5.00) X 10*3/uL Eosinophils # (0.04-0.35) X 10*3/uL NRBC/100 WBC Diff (0.00-0.01) X 10*3/uL Hypochromasia (manual) Anisocytosis (manual) Macrocytosis (manual) Acanthocytes (Spur) APTT (22.0-30.0) sec Potassium 3.3 L (3.5-5.5) mmol/L Chloride 95 L (96-109) mmol/L Carbon Dioxide 34.9 H (21.6-31.8) mmol/L Glucose 176 H (70-110) mg/dL POC Glucose (mg/dL) 243 H 219 H (70-110) mg/dL Calcium 8.4 L (8.7-10.3) mg/dL 08/24/23 Range/Units 11:26 WBC (4.50-10.00) X 10*3/uL RBC (4.40-5.60) X 10*6/uL Hgb (13.0-17.0) d/dL Hct (39.6-50.0) % MCV (80.0-97.0) FL MCH (27.0-32.0) pg RDW (11.5-14.5) % Neutrophils # (1.80-7.70) X 10*3/uL Lymphocytes # (0.90-5.00) X 10*3/uL Eosinophils # (0.04-0.35) X 10*3/uL NRBC/100 WBC Diff (0.00-0.01) X 10*3/uL Hypochromasia (manual) Anisocytosis (manual) Macrocytosis (manual) Acanthocytes (Spur) APTT 57.3 H (22.0-30.0) sec Potassium (3.5-5.5) mmol/L Chloride (96-109) mmol/L Carbon Dioxide (21.6-31.8) mmol/L Glucose (70-110) mg/dL POC Glucose (mg/dL) (70-110) mg/dL Calcium (8.7-10.3) mg/dL Assessment and Plan Plan: Chest pain in a patient found to have right pulmonary emboli evolving segmental and subsegmental branches of the right upper lobe. Relatively mild burden. Initiated on a heparin drip. Metastatic lung cancer. Computed tomography scan reveals spiculated distortion/scarring versus neoplasm of the right midlung measuring 2.2 cm. Previous surgical material periphery of the right lower lobe but with new 1.7 cm soft tissue. Prominent right hilar and lower paratracheal nodes measuring up to 1.8 cm. New lytic lesion anterior T8 vertebral body. New thickening of the bilateral adrenal glands. UIP/IPF which has progressed from 2016 Severe COPD. Severe hyponatremia, suspect SIADH. Improving on current sodium 140 Hyponatremic encephalopathy, improving Hypoglycemia, improved. Currently hyperglycemic Anion gap metabolic acidosis Acute on chronic anemia, current hemoglobin 7.9 Hypothyroidism Herpes zoster History of abdominal wall cellulitis Leukocytosis Chronic pulmonary fibrosis Chronic obstructive pulmonary disease Chronic hypoxemic respiratory failure History of pulmonary embolism, status post IVC filter Diabetes mellitus, insulin-dependent Hyperlipidemia Remote CVA Coronary artery disease, with previous coronary stents History of pancreatitis Chronic pain Peripheral neuropathy History of migraines Plan: We'll monitor mental status. CAT scan of the brain was noted. Could be transitioned to Xa inhibitor, probably within next 24-48 hours. Titrate down the FiO2 as tolerated Plan is to return to an ECF at discharge We will continue to follow Prognosis extremely poor based on underlying comorbidities
[2023-08-24] MEDS: ACETAMINOPHEN TAB 325 MG TAB PO PRN (19:43)
[2023-08-24] MEDS: EZETIMIBE 10 MG TAB PO SCH (21:09)
[2023-08-24] MEDS: ATORVASTATIN 80 MG TAB PO SCH (21:09)
[2023-08-24 22:44] LABS: Glucose,Whole Blood 408 mg/dL (70-110)
[2023-08-25 02:08] LABS: Glucose,Whole Blood 217 mg/dL (70-110)
[2023-08-25] MEDS: INSULIN ASPART (NovoLOG) 100 UNIT/ML VIAL SQ SCH ×6 (02:32→22:47)
--- NOTE | 2023-08-25 04:20 | PN ---
PROGRESS NOTE SUBJECTIVE: This is a 63-year-old white male, positive for pulmonary embolism, subsegmental, remains sleepy and lethargic. He has metastatic lung cancer. He had a brain CT, showed postsurgical changes to the right cerebellar area, decreased enhancement. Positive response to therapy, postsurgical changes. No new metastatic lesion. Bilateral mastoid effusion, mastoiditis most likely. Going to start him on IV antibiotics which he is being treated with blood thinners for pulmonary embolism, COPD, being treated with updrafts. He has been more awake and alert yesterday, he is more sleepy. IV heparin, possibly switch to oral anticoagulation, oxygen stable on 3 L. OBJECTIVE: VITAL SIGNS: Blood pressure 127/77, pulse is 100, respiratory rate 18 to 20, and temp 98.4. HEENT: Normocephalic, atraumatic. Pupils equal, round, reactive. CARDIOVASCULAR: S1, S2. LUNGS: Decreased breath sounds . HEMATOLOGIC: Negative Homans. PSYCH: Fair mood and affect. Subsegmental PE, new soft tissue lesion, 1.7 cm, severe COPD, hyponatremia. Suspect SIADH, , hyponatremia, encephalopathy, chronic anemia, hypothyroidism, hypoglycemia, and metabolic acidosis, continue treatment. PROGNOSIS: Guarded. FOLLOWUP: Next 24 to 48 hours. Please see further orders. MMODL / IJN: [id number] /
[2023-08-25 06:08] LABS: Glucose,Whole Blood 146 mg/dL (70-110)
[2023-08-25] MEDS: LEVOTHYROXINE 125 MCG TAB PO SCH (06:38)
[2023-08-25] MEDS: IPRATROPIUM-ALBUTEROL 3 ML NEB INHALATION SCH ×4 (07:27→21:33)
[2023-08-25] MEDS: BUDESONIDE 0.5 MG/2 ML NEBU INHALATION SCH ×2 (07:28→21:33)
[2023-08-25] MEDS: HYDROcodone/APAP 5-325MG 1 EACH TAB PO PRN ×3 (08:31→21:02)
[2023-08-25] MEDS: HEPARIN SODIUM 1,000 UN/ML (10ML VL) IV PRN (08:33)
[2023-08-25] MEDS: INSULIN DETEMIR (LEVEMIR) 100 UNIT/ML SYR SQ SCH (08:36)
[2023-08-25] MEDS: ONDANSETRON 4 MG TAB PO PRN (09:48)
[2023-08-25] MEDS: MIDODRINE 5 MG TAB PO SCH ×3 (10:25→16:21)
[2023-08-25] MEDS: HYDROCORTISONE SUCCINATE 100 MG/2 ML VIAL IV SCH ×4 (10:28→23:29)
[2023-08-25] MEDS ORDERED: Potassium Replacement Protocol 1 EACH MISC MISCELLANE PRN (10:32)
[2023-08-25] MEDS: PANTOPRAZOLE 40 MG TABLET PO SCH (11:34)
[2023-08-25] MEDS: DOCUSATE 100 MG CAP PO SCH ×2 (11:34→21:02)
[2023-08-25] MEDS: GABAPENTIN 100 MG CAP PO SCH ×3 (11:34→21:02)
[2023-08-25] MEDS: TAMSULOSIN 0.4 MG CAP.ER.24H PO SCH (11:34)
[2023-08-25] MEDS: droNABinol 2.5 MG CAP PO SCH ×2 (11:35→21:02)
[2023-08-25] MEDS: ASPIRIN 81 MG PO SCH (11:35)
[2023-08-25] MEDS: QUEtiapine 25 MG TAB PO SCH ×3 (11:35→21:02)
[2023-08-25] MEDS: MAGNESIUM OXIDE 400 MG TAB PO SCH (11:35)
[2023-08-25] MEDS: CARBAMIDE PEROXIDE 6.5% DROPS 15 ML BTL BOTH EARS SCH ×2 (11:37→21:06)
--- NOTE | 2023-08-25 11:56 | P.PN ---
Subjective Patient is seen in follow-up for hyponatremia. Currently off of IV fluids Sodium 140 yesterday No significant complaints today. Emesis 1 earlier this morning Objective - Vital Signs Vital signs: Vital Signs Temp 97.7 F 08/25/23 07:30 Pulse 100 08/25/23 07:43 Resp 18 08/25/23 07:30 BP 157/74 08/25/23 07:30 Pulse Ox 99 08/25/23 07:30 FiO2 Intake & Output 08/24/23 08/25/23 08/25/23 18:59 06:59 18:59 Intake Total 233.060 188.914 Output Total 850 1800 Balance -616.940 -1800 188.914 Weight 66.5 kg Intake: Intake, IV Titration 233.060 188.914 Amount Heparin Sod,Pork in 0.45% 233.060 188.914 NaCl 25,000 unit In 0.45 % NaCl 1 250ml.bag @ 12 UNITS/KG/HR 4.92 mls/hr IV .Q24H [facility] Rx#: [id number] Output: Urine 850 1800 Other: Voiding Method Indwelling Catheter Indwelling Catheter Indwelling Catheter # Bowel Movements 1 1 - Exam Patient is sleeping but arousable Examination the lungs bilateral breath sounds are heard Abdomen is soft nontender Examination of the lower extremities shows no significant edema RO[employer] DES[employer] 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 Also component of urinary retention. Sodium level 140. Urine sodium 111 and urine osmolality 430. TSH elevated at 18.7 this admission. 2. Metabolic acidosis secondary to ketoacidosis. Improved. 3. Hypothyroidism maintained on Synthroid. 4. Metastatic lung cancer. 5. Diabetes mellitus. 6. History of coronary artery disease. 7. Urinary retention. Costa catheter placed 08/17/2023. On Flomax. Urology on consult Plan: Replace potassium Continue off of IV fluids. Repeat labs today
[2023-08-25 12:16] LABS: Glucose,Whole Blood 443 mg/dL (70-110)
[2023-08-25] MEDS: buPROPion 75 MG TAB PO SCH ×2 (12:26→21:05)
[2023-08-25 12:48] LABS: African American GFR (CKD) >90 (>60 ml/min/1.73 sqM); Anion Gap 8 mmol/L; Blood Urea Nitrogen 19 mg/dL (9-20); Calcium 8.1 mg/dL (8.4-10.2); Carbon Dioxide 32 mmol/L (22-30); Chloride 90 mmol/L (98-107); Glucose 356 mg/dL (74-99); Non-African American GFR(CKD) >90 (>60 ml/min/1.73 sqM); Sodium 130 mmol/L (137-145)
[2023-08-25 12:49] LABS: Potassium 3.8 mmol/L (3.5-5.1)
--- NOTE | 2023-08-25 13:12 | P.GSCN ---
History of Present Illness Consult date: 08/25/23 History of present illness: CHIEF COMPLAINT: Altered mental status Reason for consult EGD HISTORY OF PRESENT ILLNESS: This is a 63-year-old male with a history of non-sm all cell lung carcinoma. Patient hospitalized with altered mental status, hyponatremia and hyperglycemia. Sodium has improved. Blood sugars are still elevated. Patient's also diagnosed with a new PE and currently on IV heparin. Even with the correction of sodium and his blood sugar patient continues to have intractable nausea and vomiting. Oncology service has requested EGD completed for evaluation of nausea and vomiting. Patient does complain of epigastric pain and suprapubic discomfort. He is having bowel movements. He does have a Costa catheter in place. Surgical history does include cholecystectomy. Patient had been on Plavix. It was stopped on 08/22/2023. Patient denies any bloody or coffee ground emesis. PAST MEDICAL HISTORY: See below. Coronary artery disease with cardiac stent PAST SURGICAL HISTORY: See below MEDICATIONS: See below ALLERGIES: See below SOCIAL HISTORY: No illicit drug use. REVIEW OF SYSTEMS: CONSTITUTIONAL: Denies fever or chills. HEENT: Denies blurred vision, vision changes, or eye pain. Denies hemoptysis CARDIOVASCULAR: Denies chest pain or pressure. RESPIRATORY: No shortness of breath. GASTROINTESTINAL: See HPI for pertinent findings HEMATOLOGIC: Denies bleeding disorders. GENITOURINARY: Denies any blood in urine or increased urinary frequency. SKIN: Denies pruitis. Denies rash. PHYSICAL EXAM: VITAL SIGNS: Reviewed GENERAL: Well-developed in no acute distress. ABDOMEN: Soft. Nondistended. Epigastric tenderness and suprapubic tenderness NEUROLOGIC: Patient sleeping. Arousable. Able to answer some questions. Confused. LABORATORY DATA: WBC 10.18 Hgb 7.9 and platelets 188 Sodium 130 potassium 3.8 creatinine 0.56 Glucose of 443 LFTs normal IMAGING: ASSESSMENT: 1. Intractable nausea and vomiting with Epigastric abdominal pain 2. Non-small cell lung carcinoma 3. PE PLAN: -Patient scheduled for EGD on , 08/27/[address] Worrell -IV heparin to be held 6 hours prior to EGD -Continue supportive care -check lipase, history of pancreatitis Thank you for this consultation Physician [employer] note has been reviewed by physician. Signing provider agrees with the documented findings, assessment, and plan of care. I have personally seen and examined the patient, reviewed the WEB SERVICES MANAGER /PAs history, exam and MDM and agree with the assessment and plan as written. Based on total visit time, I have performed more than 50% of the visit. As above: Patient with ongoing nausea and intermittent vomiting. Mild upper abdominal tenderness. Patient with history of metastatic lung cancer. Brain CAT scan noted. Etiology for her nausea could still be central in origin. Will proceed with upper endoscopy on . Continue antiacids. Past Medical History Past Medical History: Coronary Artery Disease (CAD), Cancer, Heart Failure, COPD, Diabetes Mellitus, GI Bleed, Hyperlipidemia, Hypertension, Osteoarthritis (OA), Pneumonia, Pulmonary Embolus (PE), Renal Disease, Respiratory Disorder, Vascular Disorder Additional Past Medical History / Comment(s): hx. 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 History of Any Multi-Drug Resistant Organisms: MRSA Year Discovered:: 03/15/17 MDRO Source:: genital Past Surgical History: Back Surgery, Cholecystectomy, Heart Catheterization, Heart Catheterization With Stent Additional Past Surgical History / Comment(s): EGD's, 07/26/15 IVC filter, BACK STIMULATORS x 2 -cervical and lumbar,FEMORAL BYPASS RT LEG X3, metal chips removed from bilateral eyes Past Anesthesia/Blood Transfusion Reactions: No Reported Reaction Additional Past Anesthesia/Blood Transfusion Reaction / Comm: Pt has received blood transfusions without reaction. Date of Last Stent Placement:: Past Psychological History: Anxiety, Depression Smoking Status: Former smoker Past Alcohol Use History: None Reported Past Drug Use History: None Reported - Past Family History Father History Unknown: Yes Family Medical History: Myocardial Infarction ([place]) Additional Family Medical History / Comment(s): due to heart attack Mother History Unknown: Yes Family Medical History: Cancer Additional Family Medical History / Comment(s): LUNG CANCER Medications and Allergies Home Medications Medication Instructions Recorded Confirmed Type Aspirin EC [Ecotrin Low Dose] 81 mg PO DAILY #30 tab 03/29/21 08/16/23 Rx Atorvastatin [Lipitor] 80 mg PO HS #90 tab 03/29/21 08/16/23 Rx Metoprolol Succinate (ER) [Toprol 25 mg PO DAILY 10/05/22 08/16/23 History XL] Clopidogrel [Plavix] 75 mg PO DAILY #90 tab 10/07/22 08/16/23 Rx Multivitamins, Thera [Multivitamin 1 tab PO DAILY 12/16/22 08/16/23 History (formulary)] Cholecalciferol [Vitamin D3 (25 50 mcg PO DAILY 07/06/23 08/16/23 History Mcg = 1000 Iu)] Ondansetron [Zofran] 4 mg PO Q4H PRN 07/06/23 08/16/23 History 0.9 % Sodium Chloride [Sodium 10 ml IV Q8H 08/16/23 08/16/23 History Chloride Flush] Acyclovir Sodium Intravenous 635 mg IV TID 08/16/23 08/16/23 History Solution Budesonide [Pulmicort] 0.5 mg INHALATION RT-BID 08/16/23 08/16/23 History Carbamide Peroxide [Debrox Otic] 5 drops BOTH EARS BID 08/16/23 08/16/23 History Ezetimibe [Zetia] 10 mg PO HS 08/16/23 08/16/23 History Gabapentin [Neurontin] 100 mg PO TID 08/16/23 08/16/23 History HYDROcodone/APAP 5-325MG [[place] 1 tab PO Q6HR PRN 08/16/23 08/16/23 History 5-325] Insulin Lispro [humaLOG Kwikpen] 10 unit SQ AC-TID 08/16/23 08/16/23 History Insulin Lispro [humaLOG Kwikpen] See Protocol SQ ACHS 08/16/23 08/16/23 History Ipratropium-Albuterol Nebulize 3 ml INHALATION RT-Q6H 08/16/23 08/16/23 History [Duoneb 0.5 mg-3 mg/3 ml Soln] L.acidoph,Paracasei, B.lactis 1 cap PO BID 08/16/23 08/16/23 History [Probiotic] Levothyroxine Sodium [Synthroid] 100 mcg PO DAILY 08/16/23 08/16/23 History Lidocaine 5% Patch [Lidoderm] 1 patch TOPICAL DAILY 08/16/23 08/16/23 History Magnesium Oxide [Magox 400] 400 mg PO DAILY 08/16/23 08/16/23 History Midodrine [ProAmatine] 5 mg PO AC-TID 08/16/23 08/16/23 History Pantoprazole Sodium [Protonix] 40 mg PO DAILY 08/16/23 08/16/23 History buPROPion [Wellbutrin] 150 mg PO BID 08/16/23 08/16/23 History ceFAZolin [Kefzol] 2 gm IVP Q8HR 08/16/23 08/16/23 History droNABinol [Marinol] 2.5 mg PO BID 08/16/23 08/16/23 History predniSONE 5 mg PO DAILY 08/16/23 08/16/23 History Allergies Allergy/AdvReac Type Severity Reaction Status Date / Time No Known Allergies Allergy Verified 08/16/23 16:49 Surgical - Exam Vital Signs Pulse Resp BP Pulse Ox 86 24 88/61 97 08/16/23 13:52 08/16/23 13:52 08/16/23 13:52 08/16/23 13:52 Results - Labs 08/24/23 05:33 08/25/23 11:58 Abnormal Lab Results - Last 24 Hours (Table) 08/24/23 08/24/23 08/24/23 Range/Units 15:54 17:23 22:42 APTT (22.0-30.0) sec POC Glucose (mg/dL) 209 H 190 H 408 H (70-110) mg/dL 08/25/23 08/25/23 08/25/23 Range/Units 02:05 06:06 07:00 APTT 43.2 H (22.0-30.0) sec POC Glucose (mg/dL) 217 H 146 H (70-110) mg/dL 08/25/23 Range/Units 12:14 APTT (22.0-30.0) sec POC Glucose (mg/dL) 443 H (70-110) mg/dL
--- NOTE | 2023-08-25 13:55 | P.PN ---
Subjective Progress Note Date: 08/25/23 I am seeing this patient in new consultation today 08/17/2023 in the intensive care unit after he presented from [facility] with altered mental status. Patient is a 63-year-old male with past medical history significant for metastatic lung cancer, pulmonary fibrosis, COPD, type 1 diabetes mellitus, hypertension, hyperlipidemia, pulmonary embolism, among other things. Patient does follow with his oncologist Dr. Heredia for management of his metastatic lung cancer, and had been receiving a combination of Carbolplatin/Alimta/Keytuda, but is on hold in light of his recent soft tissue abdominal well cellulitis/abscess. This reportedly developed from an old insulin pump subcutaneous site. Emiliano arently, the patient was recently hospitalized at [facility] for abdominal wall cellulitis and hyponatremia. He also was found to have shingles, and started on antivirals. Patient was then discharged to [facility] rehab facility. At the outside facility, he was found to be confused. It was felt this correlated with his [place] administration, however, he was found to have abnormal blood glucose readings. on arrival to the emergency room, a nonenhanced brain CT did not show any acute intracranial abnormality. It did show generalized atrophy and remote infarct/consult of the right cerebral hemisphere. Chest x-ray on arrival showed chronic fibrotic changeswithout any acute cardio pulmonary process. Patient is currently lying in bed, on 2 L/m nasal cannula, in no acute distress. He is still confused and having visual hallucinations. His sodium was found to be severely low at 115, and he was started on a hypertonic saline infusion which is currently running at 30 MLS per hour. He was also hypoglycemic in the emergency room, and started on a D10W. This is currently on hold, because the patient is now hyperglycemic.CBC on arrival showed a WBC count of 12.4, hemoglobin 8.6, hematocrit 23.7, platelets 205. Most recent BMP from around midnight showed a sodium 112, potassium 5, chloride 82, serum bicarb 19, BUN 17, creatinine 0.77, glucose 259. Serum osmolality was 244. Urine osmolality was 430. Urine sodium 111. hyponatremia is being managed by nephrology. TSH was elevated at 18.7 and free T4 0.58. Patient had reportedly been refusing his medications. UA not concerning for UTI. No documented fevers. Restarted on Cefazolin and Acyclovir. Patient is admitted to the intensive care unit. Progress note dated 08/18/2023. 63-year-old male seen yesterday in consultation, for mental status changes, in part related to hyponatremia. The patient has history of metastatic lung cancer, pulmonary fibrosis, COPD, diabetes, hypertension, hyperlipidemia, pulmonary embolism, and multiple other medical problems. The patient was admitted with a sodium of 112. Currently, his sodium is 127. He seen in the intensive care unit, room 253. Currently, he's on 2 L of oxygen. He is getting norepinephrine at 2 mcg/m, Precedex for agitation is 0.2 mcg/kg per hour. Saline running at 10 mL an hour. Seroquel, 25 mg 3 times a day for agitation. White count 13.1, hemoglobin 8.6, hematocrit 23.8, with a normal platelet count. Sodium 127, potassium 4.9, chlorides 91, CO2 18, anion gap 18, BUN 17, and creatinine 0.78. Progress note dated 08/19/2023. 63-year-old male seen in consultation a few days ago, for mental status changes, and hyponatremia. The patient is seen again in the intensive care unit, room 253. The patient has a history of metastatic lung cancer, pulmonary fibrosis, COPD, diabetes, hypertension, hyperlipidemia, pulmonary embolism, and other medical problems. Currently, his sodium is 134. He is currently on 2 L of oxygen. He is getting half-normal saline at 100 mL an hour. Norepinephrine has been weaned off. The patient's dexmedetomidine is also been off for some time. The patient clinically is doing much better. White count is 10.2, hemoglobin 7.1, hematocrit 20.8, and platelet count 218,000. Sodium 134, potassium 3.9, chlorides 98, CO2 28, BUN 13, creatinine 0.81. Albumin is 2.7. Blood cultures are negative. The patient is seen today 08/20/2023 in follow-up on the regular medical floor. He is currently resting in bed. Awake and alert in no acute distress. He is maintaining O2 saturations in the 90s on 2 L/m per nasal cannula. He has 0.45% normal saline at 100 ML's per hour. His current sodium is 134. Blood cultures revealed no growth. Blood sugar 232. He is continued on DuoNeb inhalations, Pulmicort inhalations. He remains on Solu-Cortef per nephrology. Todays labs are pending. The patient is seen today 08/21/2023 and follow-up on the regular medical floor. He is currently resting comfortably in bed. Awake and alert in no acute distress. He is complaining of some anterior chest pain. He is somewhat emotional today and teary-eyed. He is maintaining O2 saturations in the mid to upper 90s on 2 L/m per nasal cannula. He is afebrile. Hemodynamically stable. White count 7.7. Hemoglobin 7.3. Platelets 204. Troponin 0.037. Glucose 318. CT angiogram was performed and he was found to have an acute pulmonary embolus involving the segmental and subsegmental branches of the right upper lobe. Re latively mild burden. There is evidence of his metastatic lung cancer in the right lung. Extensive UIP/IPF progress from 2016. Severe COPD. Blood cultures reveal no growth. He is continued on DuoNeb inhalations, Pulmicort and Perforomist inhalations. 0.45% saline at 100 ML's per hour. He remains on Solu- Cortef. He remains on cefazolin. The patient is seen today 08/22/2023 in follow-up on the regular medical floor. He is awake and alert in no acute distress. More comfortable today compared to yesterday. He is maintaining O2 saturations in the 90s on 3 L/m per nasal cannula. He has 0.45% normal saline at 100 ML's per hour. He is now on a heparin drip due to his pulmonary embolism. Echocardiogram revealed preserved left ventricular systolic function with ejection fraction 50-55%. Normal right ventricular size and function. Normal RV pressures. Blood cultures reveal no growth. Glucose 197. Labs are pending. He is continued on DuoNeb inhalations, Pulmicort and Perforomist inhalations. He remains on Solu-Cortef per nephrology. The patient is seen today 08/23/2023 in follow-up on the regular medical floor. He sitting up in bed. Awake and alert in no acute distress. Oriented to time and place. He denies any worsening shortness of breath, cough or congestion. No hemoptysis. He is maintaining O2 saturations in the 90s on 3 L/m per nasal cannula. He has 0.45% normal saline running at 100 ML's per hour. He remains on a heparin drip. He remains on Solu-Cortef. Most recent labs reveal a white count of 8.3. Hemoglobin of 7.8. Platelets 204. He is continued on DuoNeb inhalations, Pulmicort inhalations. Today's evaluation of 08/24/2020 on seeing the patient for a follow-up. The patient is very much lethargic, weak, mental status is fluctuating. CAT scan of the chest was noted. CAT scan of the brain was noted. The white cycles of 10.1 with a hemoglobin of 7.9, platelet of 188, sodium is at 140, BUN is at 12 with a creatinine of 0.8. Remains on IV heparin. He has not been transitioned to long-acting anticoagulation yet. No other new complaints otherwise for now. Oxygenation remains stable and the patient remains on 3 L of oxygen by nasal cannula. Hemodynamically stable. Condition is essentially unchanged. Oncology is on the case. On today's evaluation of 08/25/2023, the patient's medication remains altered and the patient remains on IV heparin. Lumbar puncture is being considered for this patient. At the same time, the patient is having intractable nausea and emesis and epigastric discomfort. He is known to have multiple comorbidities including advanced lung disease, chronic pulmonary fibrosis, COPD and lung cancer. Just surgical/has been obtained regarding his abdominal pain and nausea and emesis. Meanwhile, his PTT is therapeutic, sodium level is at 1:30 with a potassium level of 3.8, BUN is at 19 with a creatinine of 0.5 and a bicarb level is at 32. The patient remains on oxygen at 2 L with a pulse ox of 97%. Objective - Vital Signs Vital signs: Vital Signs Temp 98 F 08/25/23 12:28 Pulse 105 H 08/25/23 12:28 Resp 16 08/25/23 12:28 BP 165/89 08/25/23 12:28 Pulse Ox 97 08/25/23 12:28 FiO2 Intake & Output 08/24/23 08/25/23 08/25/23 18:59 06:59 18:59 Intake Total 233.060 237.089 Output Total 850 1800 Balance -616.940 -1800 237.089 Weight 66.5 kg Intake: Intake, IV Titration 233.060 237.089 Amount Heparin Sod,Pork in 0.45% 233.060 237.089 NaCl 25,000 unit In 0.45 % NaCl 1 250ml.bag @ 12 UNITS/KG/HR 4.92 mls/hr IV .Q24H [facility] Rx#: [id number] Output: Urine 850 1800 Other: Voiding Method Indwelling Catheter Indwelling Catheter Indwelling Catheter # Bowel Movements 1 1 - Labs CBC & Chem 7: 08/24/23 05:33 08/25/23 11:58 Labs: Abnormal Lab Results - Last 24 Hours (Table) 08/24/23 08/24/23 08/24/23 Range/Units 15:54 17:23 22:42 APTT (22.0-30.0) sec Sodium (137-145) mmol/L Chloride (98-107) mmol/L Carbon Dioxide (22-30) mmol/L Creatinine (0.66-1.25) mg/dL Glucose (74-99) mg/dL POC Glucose (mg/dL) 209 H 190 H 408 H (70-110) mg/dL Calcium (8.4-10.2) mg/dL 08/25/23 08/25/23 08/25/23 Range/Units 02:05 06:06 07:00 APTT 43.2 H (22.0-30.0) sec Sodium (137-145) mmol/L Chloride (98-107) mmol/L Carbon Dioxide (22-30) mmol/L Creatinine (0.66-1.25) mg/dL Glucose (74-99) mg/dL POC Glucose (mg/dL) 217 H 146 H (70-110) mg/dL Calcium (8.4-10.2) mg/dL 08/25/23 08/25/23 08/25/23 Range/Units 11:58 11:58 12:14 APTT 67.1 H (22.0-30.0) sec Sodium 130 L (137-145) mmol/L Chloride 90 L (98-107) mmol/L Carbon Dioxide 32 H (22-30) mmol/L Creatinine 0.56 L (0.66-1.25) mg/dL Glucose 356 H (74-99) mg/dL POC Glucose (mg/dL) 443 H (70-110) mg/dL Calcium 8.1 L (8.4-10.2) mg/dL Assessment and Plan Plan: Chest pain in a patient found to have right pulmonary emboli evolving segmental and subsegmental branches of the right upper lobe. Relatively mild burden. Initiated on a heparin drip. Metastatic lung cancer. Computed tomography scan reveals spiculated distortion/scarring versus neoplasm of the right midlung measuring 2.2 cm. Previous surgical material periphery of the right lower lobe but with new 1.7 cm soft tissue. Prominent right hilar and lower paratracheal nodes measuring up to 1.8 cm. New lytic lesion anterior T8 vertebral body. New thickening of the bilateral adrenal glands. UIP/IPF which has progressed from 2016 Severe COPD. Severe hyponatremia, suspect SIADH. Improving on current sodium 130 Hyponatremic encephalopathy, improving Hypoglycemia, improved. Currently hyperglycemic Anion gap metabolic acidosis Acute on chronic anemia, current hemoglobin 7.9 Hypothyroidism Herpes zoster History of abdominal wall cellulitis Leukocytosis Chronic pulmonary fibrosis Chronic obstructive pulmonary disease Chronic hypoxemic respiratory failure History of pulmonary embolism, status post IVC filter Diabetes mellitus, insulin-dependent Hyperlipidemia Remote CVA Coronary artery disease, with previous coronary stents History of pancreatitis Chronic pain Peripheral neuropathy History of migraines Plan: GI consultation or surgical consultation regarding nausea and emesis and abdominal pain. We'll monitor mental status. Patient is being considered for lumbar puncture CAT scan of the brain was noted. Keep IV heparin for now Titrate down the FiO2 as tolerated We will continue to follow Prognosis extremely poor based on underlying comorbidities
[2023-08-25 13:59] VITALS: BMI 23.6
[2023-08-25 14:46] LABS: Glucose,Whole Blood 249 mg/dL (70-110)
[2023-08-25] MEDS: HEPARIN SOD,PORK IN 0.45% NACL 25,000 UNIT in 0.45% NACL 1 250ML.BAG IV SCH ×2 (15:02→23:28)
--- NOTE | 2023-08-25 17:03 | P.PN ---
Subjective Progress Note Date: 08/25/23 Principal diagnosis: Metastatic NSCLC. Currently admitted for hyponatremia and highly variable blood sugars In f/u today pt is arousable, he cont to ask the same questions, he is confused about what is going on, he forgets very quickly, has trouble finding words. He cont to vomit, he thrw up all of his breakfast today. He is emotional at times. He can still change positions independently and sit at the bedside independently for a few moments. l Objective - Vital Signs Vital signs: Vital Signs Temp 98 F 08/25/23 12:28 Pulse 105 H 08/25/23 12:28 Resp 16 08/25/23 12:28 BP 165/89 08/25/23 12:28 Pulse Ox 97 08/25/23 12:28 FiO2 Intake & Output 08/24/23 08/25/23 08/25/23 18:59 06:59 18:59 Intake Total 233.060 237.089 Output Total 850 1800 Balance -616.940 -1800 237.089 Weight 66.5 kg 66.5 kg Intake: Intake, IV Titration 233.060 237.089 Amount Heparin Sod,Pork in 0.45% 233.060 237.089 NaCl 25,000 unit In 0.45 % NaCl 1 250ml.bag @ 12 UNITS/KG/HR 4.92 mls/hr IV .Q24H [facility] Rx#: [id number] Output: Urine 850 1800 Other: Voiding Method Indwelling Catheter Indwelling Catheter Indwelling Catheter # Bowel Movements 1 1 - Constitutional General appearance: Present: cooperative, mild distress, thin - EENT Eyes: Present: anicteric sclerae, EOMI ENT: Present: hearing grossly normal - Respiratory Respiratory: bilateral: CTA - Cardiovascular Rhythm: regular - Peripheral edema leg Peripheral Edema: bilateral: None - Gastrointestinal General gastrointestinal: Present: tenderness - Integumentary Integumentary: Present: pale - Neurologic Neurologic: Present: CNII-XII intact - Musculoskeletal Musculoskeletal: Present: generalized weakness, strength equal bilaterally - Psychiatric Psychiatric Comment(s): flat affect, tearful at time Psychiatric: Present: A&O x's 3 - Labs CBC & Chem 7: 08/24/23 05:33 08/25/23 11:58 Labs: Abnormal Lab Results - Last 24 Hours (Table) 08/24/23 08/24/23 08/25/23 Range/Units 17:23 22:42 02:05 APTT (22.0-30.0) sec Sodium (137-145) mmol/L Chloride (98-107) mmol/L Carbon Dioxide (22-30) mmol/L Creatinine (0.66-1.25) mg/dL Glucose (74-99) mg/dL POC Glucose (mg/dL) 190 H 408 H 217 H (70-110) mg/dL Calcium (8.4-10.2) mg/dL 08/25/23 08/25/23 08/25/23 Range/Units 06:06 07:00 11:58 APTT 43.2 H 67.1 H (22.0-30.0) sec Sodium (137-145) mmol/L Chloride (98-107) mmol/L Carbon Dioxide (22-30) mmol/L Creatinine (0.66-1.25) mg/dL Glucose (74-99) mg/dL POC Glucose (mg/dL) 146 H (70-110) mg/dL Calcium (8.4-10.2) mg/dL 08/25/23 08/25/23 08/25/23 Range/Units 11:58 12:14 14:44 APTT (22.0-30.0) sec Sodium 130 L (137-145) mmol/L Chloride 90 L (98-107) mmol/L Carbon Dioxide 32 H (22-30) mmol/L Creatinine 0.56 L (0.66-1.25) mg/dL Glucose 356 H (74-99) mg/dL POC Glucose (mg/dL) 443 H 249 H (70-110) mg/dL Calcium 8.1 L (8.4-10.2) mg/dL - Imaging and Cardiology CT Scan - head: report reviewed Assessment and Plan (1) Anemia Current Visit: Yes Status: Acute Priority: Medium Code(s): D64.9 - ANEMIA, UNSPECIFIED SNOMED Code(s): 798172866 (2) Hypoglycemia Current Visit: Yes Status: Resolved Priority: High Code(s): E16.2 - HYPOGLYCEMIA, UNSPECIFIED SNOMED Code(s): 281242995 (3) Hyponatremia Current Visit: Yes Status: Resolved Priority: High Code(s): E87.1 - HYPO- OSMOLALITY AND HYPONATREMIA SNOMED Code(s): 83111635 (4) Adenocarcinoma of lung, stage 4 Current Visit: Yes Status: Chronic Priority: High Code(s): C34.90 - MALIGNANT NEOPLASM OF UNSP PART OF UNSP BRONCHUS OR LUNG SNOMED Code(s): 612195264 Plan: Uncontrolled diabetes -Patient spent nearly 3 weeks at [facility], with multiple adjustments to his medications to try and control his blood sugars. He has been admitted here for 9 days -blood glucose seems to be better controlled but remains labile Hyponatremia-Resolved -Nephrology following Metastatic non-small cell lung cancer -pt is sp 4 cycles carbo/alimta/keytruda, last given on 06/15. Last imaging was just about 7 weeks ago. There was no evidence of disease progression, some areas were questionable for some slight progress. [place] to be a pseudo- progression from immunotherapy. Plan was to cont on treatment and reassess after 3 more cycles. Pt had CTA of the chest done to rule out PE-there was a PE reported in the RUL, pt has been on heparin drip since the (had this documented wrong in yesterdays note). The CTA also reported that there is some progression of known lung lesions and a new RLL 1.7cm mass soft tissue mass seen-this was discussed with the pt. Discussed with pt that in his current physical condition he is not a candidate for cancer treatment. -Due to patient's persistent encephalopathy symptoms CT if the head with contrast was ordered, no new findings, nothing to suggest recurrence. LP with analysis of CSF ordered. -Intractable N/V persists. Have asked Surgery to evaluate for EGD to see if there is a underlying cause. Discussed with Surgical PA. Pending Surgery assessment and recommendations -Immunotherapy-related side effects have been worked up extensively, all results have been normal when assessed. Nothing to suggest immunotherapy as a cause for pt current condition Anemia -Multifactorial including inflammation, prolonged illness/hospitalization. -Anemia workup most consistent with anemia of inflammation, saturation is normal. No deficiency to be supplemented at this time. - Transfuse for Hgb <7 Family meeting to discuss pt condition from an Oncology standpoint, plan of care and recommendations is sched for tomorrow morning 9-10
[2023-08-25 17:59] LABS: Glucose,Whole Blood 180 mg/dL (70-110)
[2023-08-25] MEDS ORDERED: TRIMETHOBENZAMIDE 100 MG/ML 2 ML VIAL IM PRN (19:11)
[2023-08-25] MEDS: EZETIMIBE 10 MG TAB PO SCH (21:02)
[2023-08-25] MEDS: ATORVASTATIN 80 MG TAB PO SCH (21:02)
--- NOTE | 2023-08-25 22:32 | PN ---
PROGRESS NOTE SUBJECTIVE: A 63-year-old white male. Temperature 97 to 98, pulse 105 to 107, blood pressure 157 to 165 over 74 to 89, O2 saturation 99 to 97 on 2 L, being treated for pulmonary embolus subsegmental. Sugars in the 100s all the way up to 400s. CO2 is high at 32. Remains on oxygen. He is sleepy, lethargic, but he would give appropriate answers. OBJECTIVE: CARDIOVASCULAR: S1, S2. LUNGS: Decreased breath sounds x4. ABDOMEN: Soft, tender. ASSESSMENT: Blood culture shows no growth. Nausea medicine is not working for him. Pain medicines are not working for him. We are going to give some IV pain medicine and nausea medicines Dilaudid. Prognosis guarded. MMODL / IJN: [id number] /
[2023-08-25 22:40] LABS: Glucose,Whole Blood 146 mg/dL (70-110)
[2023-08-25 22:57] LABS: Glucose,CSF 83 mg/dL (40-70)
[2023-08-26 02:12] LABS: Glucose,Whole Blood 237 mg/dL (70-110)
[2023-08-26] MEDS: INSULIN ASPART (NovoLOG) 100 UNIT/ML VIAL SQ SCH ×6 (02:13→23:09)
[2023-08-26] MEDS: HYDROmorphone 0.5 MG/0.5 ML SYRINGE IVP PRN (02:14)
[2023-08-26 04:05] LABS: Appearance,CSF Clear; CSF Tube Number 4; CSF Tube Volume 2.5
[2023-08-26 04:06] LABS: Nucleated Cells, CSF 5 u/L (0-5); Red Blood Cell,CSF 4 u/L (0-10)
--- NOTE | 2023-08-26 06:11 | P.PCN ---
Date of Procedure: 08/26/23 Description of Procedure: Lumbar puncture for Metastatic cancer with severe headache's Heparin held for > 6 hours Patient and daughter in agreement at the bedside, time out confirmed. Patient placed in RLD position. L2/3 cleaned off with ChloraPrep. 3cc of 1% lidocaine used to anesthetize the area. 22g spinal needle advanced until CSF was achieved. Opening pressure was 16. 15 cc of clear fluid removed and placed in tubes. closing pressure was 14. no paresthesia noted, advised to lay flat for 2 hours, restart heparin after 2hrs. Advised that the headached could potentially improve from the removal of fluid. Signout given to VICKI JEAN BAPTISTE including the 4 tubes of CSF. Alexandro Espinoza MD
[2023-08-26 06:12] LABS: Glucose,Whole Blood 231 mg/dL (70-110)
[2023-08-26] MEDS: HYDROcodone/APAP 5-325MG 1 EACH TAB PO PRN (06:13)
[2023-08-26] MEDS: LEVOTHYROXINE 125 MCG TAB PO SCH (06:13)
[2023-08-26] MEDS: IPRATROPIUM-ALBUTEROL 3 ML NEB INHALATION SCH ×4 (07:29→19:40)
[2023-08-26] MEDS: BUDESONIDE 0.5 MG/2 ML NEBU INHALATION SCH ×2 (07:29→19:40)
[2023-08-26] MEDS: MIDODRINE 5 MG TAB PO SCH ×3 (09:01→17:55)
[2023-08-26 09:02] LABS: Diff, Total Cells Cnt, CSF 100; Mononuclear WBC,CSF 96 %; Polynuclear WBC,CSF 4 %
[2023-08-26] MEDS: HYDROCORTISONE SUCCINATE 100 MG/2 ML VIAL IV SCH ×3 (09:05→23:09)
[2023-08-26] MEDS: PANTOPRAZOLE 40 MG TABLET PO SCH (09:06)
[2023-08-26] MEDS: DOCUSATE 100 MG CAP PO SCH ×2 (09:06→22:52)
[2023-08-26] MEDS: droNABinol 2.5 MG CAP PO SCH ×2 (09:06→22:53)
[2023-08-26] MEDS: INSULIN DETEMIR (LEVEMIR) 100 UNIT/ML SYR SQ SCH (09:06)
[2023-08-26] MEDS: TAMSULOSIN 0.4 MG CAP.ER.24H PO SCH (09:06)
[2023-08-26] MEDS: MAGNESIUM OXIDE 400 MG TAB PO SCH (09:06)
[2023-08-26] MEDS: GABAPENTIN 100 MG CAP PO SCH ×3 (09:06→22:58)
[2023-08-26] MEDS: buPROPion 75 MG TAB PO SCH ×2 (09:06→22:53)
[2023-08-26] MEDS: QUEtiapine 25 MG TAB PO SCH ×3 (09:06→22:53)
[2023-08-26] MEDS: ASPIRIN 81 MG PO SCH (09:06)
[2023-08-26] MEDS: CARBAMIDE PEROXIDE 6.5% DROPS 15 ML BTL BOTH EARS SCH ×2 (09:07→23:08)
[2023-08-26 09:11] LABS: ALT 14 U/L (10-49); AST 36 U/L (14-35); Albumin 3.1 d/dL (3.8-4.9); Albumin/Globulin Ratio 1.29 Ratio (1.60-3.17); Alkaline Phosphatase 136 U/L (41-126); BUN/Creat Ratio 16.33 Ratio (12.00-20.00); Blood Urea Nitrogen 14.7 mg/dL (9.0-27.0); Calcium 8.8 mg/dL (8.7-10.3); Carbon Dioxide 32.7 mmol/L (21.6-31.8); Chloride 94 mmol/L (96-109); Globulin 2.4 d/dL (1.6-3.3); Glucose 209 mg/dL (70-110); Potassium 3.7 mmol/L (3.5-5.5); Sodium 141 mmol/L (135-145); Total Bilirubin 0.4 mg/dL (0.3-1.2); Total Protein 5.5 d/dL (6.2-8.2)
[2023-08-26 10:09] LABS: Glucose,Whole Blood 384 mg/dL (70-110)
[2023-08-26 10:28] LABS: Basophils # (A) 0.01 X 10*3/uL (0.00-0.10); Basophils % (A) 0.1 %; Eosinophils # (A) 0 X 10*3/uL (0.04-0.35); Eosinophils % (A) 0 %; HCT 28.7 % (39.6-50.0); HGB 9.3 d/dL (13.0-17.0); Lymphocytes # (A) 0.94 X 10*3/uL (0.90-5.00); Lymphocytes % (A) 10.6 %; MCH 33.8 pg (27.0-32.0); MCHC 32.4 d/dL (32.0-37.0); MCV 104.4 FL (80.0-97.0); Mean Platelet Volume 10.3 FL (9.5-12.2); Monocytes # (A) 0.73 X 10*3/uL (0.20-1.00); Monocytes % (A) 8.2 %; NRBC Per 100 WBC 0.02 X 10*3/uL (0.00-0.01); Neutrophils # (A) 7.13 X 10*3/uL (1.80-7.70); Neutrophils % (A) 80.3 %; Platelet Count 178 X 10*3/uL (140-440); RBC 2.75 X 10*6/uL (4.40-5.60); RDW 22.8 % (11.5-14.5); WBC 8.88 X 10*3/uL (4.50-10.00)
--- NOTE | 2023-08-26 12:39 | P.PN ---
Subjective Progress Note Date: 08/26/23 CHIEF COMPLAINT: Nausea and vomiting HISTORY OF PRESENT ILLNESS: Patient sitting up in bed eating breakfast. He does report some nausea. No vomiting this morning. He did have some vomiting yesterday. Patient reports his epigastric abdominal pain is less today. Afebrile. Mildly tachycardic. WBC 8.88 Hgb 7.9 up to 9.3 platelets 178 sodium 141 potassium 3.7 creatinine 0.9 lipase 88. Patient had lumbar puncture this morning. PHYSICAL EXAM: VITAL SIGNS: Reviewed. GENERAL: Well-developed in no acute distress. ABDOMEN: Soft. Nondistended. Mild tenderness to palpation epigastric area NEUROLOGIC: Alert and oriented. Cranial nerves II through XII grossly intact. ASSESSMENT: 1. Nausea and vomiting with Epigastric abdominal pain 2. Non-small cell lung carcinoma 3. PE PLAN: -Patient scheduled for EGD tomorrow, 08/27/[address] Worrell -Nothing by mouth after midnight -IV heparin to be held 6 hours prior to EGD Physician Sample Color Maker note has been reviewed by physician. Signing provider agrees with the documented findings, assessment, and plan of care. Objective - Vital Signs Vital signs: Vital Signs Temp 98.7 F 08/26/23 07:10 Pulse 103 H 08/26/23 07:40 Resp 18 08/26/23 07:40 BP 162/77 08/26/23 07:10 Pulse Ox 99 08/26/23 07:29 FiO2 Intake & Output 08/25/23 08/26/23 08/26/23 18:59 06:59 18:59 Intake Total 237.089 365.053 Output Total 850 Balance 237.089 -484.947 Weight 66.5 kg 59 kg Intake: Intake, IV Titration 237.089 5.053 Amount Heparin Sod,Pork in 0.45% 237.089 5.053 NaCl 25,000 unit In 0.45 % NaCl 1 250ml.bag @ 12 UNITS/KG/HR 4.92 mls/hr IV .Q24H [facility] Rx#: [id number] Oral 360 Output: Urine 850 Other: Voiding Method Indwelling Catheter Toilet Diaper # Voids 2 # Bowel Movements 1 - Labs CBC & Chem 7: 08/26/23 05:56 08/26/23 05:56 Labs: Abnormal Lab Results - Last 24 Hours (Table) 08/25/23 08/25/23 08/25/23 Range/Units 06:50 11:58 11:58 RBC (4.40-5.60) X 10*6/uL Hgb (13.0-17.0) d/dL Hct (39.6-50.0) % MCV (80.0-97.0) FL MCH (27.0-32.0) pg RDW (11.5-14.5) % Eosinophils # (0.04-0.35) X 10*3/uL NRBC/100 WBC Diff (0.00-0.01) X 10*3/uL APTT 67.1 H (22.0-30.0) sec Sodium 130 L (137-145) mmol/L Chloride 90 L (98-107) mmol/L Carbon Dioxide 32 H (22-30) mmol/L Anion Gap (4.00-12.00) mmol/L Creatinine 0.56 L (0.66-1.25) mg/dL Glucose 356 H (74-99) mg/dL POC Glucose (mg/dL) (70-110) mg/dL Calcium 8.1 L (8.4-10.2) mg/dL AST (14-35) U/L Alkaline Phosphatase (41-126) U/L Total Protein (6.2-8.2) d/dL Albumin (3.8-4.9) d/dL Albumin/Globulin Ratio (1.60-3.17) Ratio CSF Glucose 83 H (40-70) mg/dL 08/25/23 08/25/23 08/25/23 Range/Units 12:14 14:44 17:57 RBC (4.40-5.60) X 10*6/uL Hgb (13.0-17.0) d/dL Hct (39.6-50.0) % MCV (80.0-97.0) FL MCH (27.0-32.0) pg RDW (11.5-14.5) % Eosinophils # (0.04-0.35) X 10*3/uL NRBC/100 WBC Diff (0.00-0.01) X 10*3/uL APTT (22.0-30.0) sec Sodium (137-145) mmol/L Chloride (98-107) mmol/L Carbon Dioxide (22-30) mmol/L Anion Gap (4.00-12.00) mmol/L Creatinine (0.66-1.25) mg/dL Glucose (74-99) mg/dL POC Glucose (mg/dL) 443 H 249 H 180 H (70-110) mg/dL Calcium (8.4-10.2) mg/dL AST (14-35) U/L Alkaline Phosphatase (41-126) U/L Total Protein (6.2-8.2) d/dL Albumin (3.8-4.9) d/dL Albumin/Globulin Ratio (1.60-3.17) Ratio CSF Glucose (40-70) mg/dL 08/25/23 08/26/23 08/26/23 Range/Units 22:38 02:10 05:56 RBC 2.75 L (4.40-5.60) X 10*6/uL Hgb 9.3 L (13.0-17.0) d/dL Hct 28.7 L (39.6-50.0) % MCV 104.4 H (80.0-97.0) FL MCH 33.8 H (27.0-32.0) pg RDW 22.8 H (11.5-14.5) % Eosinophils # 0 L (0.04-0.35) X 10*3/uL NRBC/100 WBC Diff 0.02 H (0.00-0.01) X 10*3/uL APTT (22.0-30.0) sec Sodium (137-145) mmol/L Chloride (98-107) mmol/L Carbon Dioxide (22-30) mmol/L Anion Gap (4.00-12.00) mmol/L Creatinine (0.66-1.25) mg/dL Glucose (74-99) mg/dL POC Glucose (mg/dL) 146 H 237 H (70-110) mg/dL Calcium (8.4-10.2) mg/dL AST (14-35) U/L Alkaline Phosphatase (41-126) U/L Total Protein (6.2-8.2) d/dL Albumin (3.8-4.9) d/dL Albumin/Globulin Ratio (1.60-3.17) Ratio CSF Glucose (40-70) mg/dL 08/26/23 08/26/23 08/26/23 Range/Units 05:56 05:56 06:09 RBC (4.40-5.60) X 10*6/uL Hgb (13.0-17.0) d/dL Hct (39.6-50.0) % MCV (80.0-97.0) FL MCH (27.0-32.0) pg RDW (11.5-14.5) % Eosinophils # (0.04-0.35) X 10*3/uL NRBC/100 WBC Diff (0.00-0.01) X 10*3/uL APTT 49.2 H (22.0-30.0) sec Sodium (137-145) mmol/L Chloride 94 L (98-107) mmol/L Carbon Dioxide 32.7 H (22-30) mmol/L Anion Gap 14.30 H (4.00-12.00) mmol/L Creatinine (0.66-1.25) mg/dL Glucose 209 H (74-99) mg/dL POC Glucose (mg/dL) 231 H (70-110) mg/dL Calcium (8.4-10.2) mg/dL AST 36 H (14-35) U/L Alkaline Phosphatase 136 H (41-126) U/L Total Protein 5.5 L (6.2-8.2) d/dL Albumin 3.1 L (3.8-4.9) d/dL Albumin/Globulin Ratio 1.29 L (1.60-3.17) Ratio CSF Glucose (40-70) mg/dL 08/26/23 Range/Units 10:06 RBC (4.40-5.60) X 10*6/uL Hgb (13.0-17.0) d/dL Hct (39.6-50.0) % MCV (80.0-97.0) FL MCH (27.0-32.0) pg RDW (11.5-14.5) % Eosinophils # (0.04-0.35) X 10*3/uL NRBC/100 WBC Diff (0.00-0.01) X 10*3/uL APTT (22.0-30.0) sec Sodium (137-145) mmol/L Chloride (98-107) mmol/L Carbon Dioxide (22-30) mmol/L Anion Gap (4.00-12.00) mmol/L Creatinine (0.66-1.25) mg/dL Glucose (74-99) mg/dL POC Glucose (mg/dL) 384 H (70-110) mg/dL Calcium (8.4-10.2) mg/dL AST (14-35) U/L Alkaline Phosphatase (41-126) U/L Total Protein (6.2-8.2) d/dL Albumin (3.8-4.9) d/dL Albumin/Globulin Ratio (1.60-3.17) Ratio CSF Glucose (40-70) mg/dL
--- NOTE | 2023-08-26 14:36 | P.PN ---
Subjective Progress Note Date: 08/26/23 Principal diagnosis: Metastatic NSCLC. Currently admitted for hyponatremia and highly variable blood sugars In f/u today pt is drowsy, family at bedside. Family confirms that pt is confused, forgetful, having trouble finding words. No emesis reported today so far. He can still change positions independently and sit at the bedside independently for a few moments but, he cont to decline, no improvements noted. Objective - Vital Signs Vital signs: Vital Signs Temp 98.6 F 08/26/23 12:20 Pulse 105 H 08/26/23 12:20 Resp 18 08/26/23 12:20 BP 118/73 08/26/23 12:20 Pulse Ox 99 08/26/23 12:20 FiO2 Intake & Output 08/25/23 08/26/23 08/26/23 18:59 06:59 18:59 Intake Total 237.089 365.053 Output Total 850 Balance 237.089 -484.947 Weight 66.5 kg 59 kg Intake: Intake, IV Titration 237.089 5.053 Amount Heparin Sod,Pork in 0.45% 237.089 5.053 NaCl 25,000 unit In 0.45 % NaCl 1 250ml.bag @ 12 UNITS/KG/HR 4.92 mls/hr IV .Q24H [facility] Rx#: [id number] Oral 360 Output: Urine 850 Other: Voiding Method Indwelling Catheter Toilet Urinal Diaper # Voids 2 1 # Bowel Movements 1 1 - Constitutional General appearance: Present: cooperative, no acute distress, thin - EENT Eyes: Present: anicteric sclerae, EOMI ENT: Present: hearing grossly normal - Respiratory Details: resp even and unlabored at rest - Peripheral edema leg Peripheral Edema: bilateral: None - Neurologic Neurologic: Present: CNII-XII intact (grossly) - Musculoskeletal Musculoskeletal: Present: generalized weakness - Psychiatric Psychiatric Comment(s): Drowsy today, answered a few questions though not appropriately - Labs CBC & Chem 7: 08/26/23 05:56 08/26/23 05:56 Labs: Abnormal Lab Results - Last 24 Hours (Table) 08/25/23 08/25/23 08/25/23 Range/Units 06:50 14:44 17:57 RBC (4.40-5.60) X 10*6/uL Hgb (13.0-17.0) d/dL Hct (39.6-50.0) % MCV (80.0-97.0) FL MCH (27.0-32.0) pg RDW (11.5-14.5) % Eosinophils # (0.04-0.35) X 10*3/uL NRBC/100 WBC Diff (0.00-0.01) X 10*3/uL APTT (22.0-30.0) sec Chloride (96-109) mmol/L Carbon Dioxide (21.6-31.8) mmol/L Anion Gap (4.00-12.00) mmol/L Glucose (70-110) mg/dL POC Glucose (mg/dL) 249 H 180 H (70-110) mg/dL AST (14-35) U/L Alkaline Phosphatase (41-126) U/L Total Protein (6.2-8.2) d/dL Albumin (3.8-4.9) d/dL Albumin/Globulin Ratio (1.60-3.17) Ratio CSF Glucose 83 H (40-70) mg/dL 08/25/23 08/26/23 08/26/23 Range/Units 22:38 02:10 05:56 RBC 2.75 L (4.40-5.60) X 10*6/uL Hgb 9.3 L (13.0-17.0) d/dL Hct 28.7 L (39.6-50.0) % MCV 104.4 H (80.0-97.0) FL MCH 33.8 H (27.0-32.0) pg RDW 22.8 H (11.5-14.5) % Eosinophils # 0 L (0.04-0.35) X 10*3/uL NRBC/100 WBC Diff 0.02 H (0.00-0.01) X 10*3/uL APTT (22.0-30.0) sec Chloride (96-109) mmol/L Carbon Dioxide (21.6-31.8) mmol/L Anion Gap (4.00-12.00) mmol/L Glucose (70-110) mg/dL POC Glucose (mg/dL) 146 H 237 H (70-110) mg/dL AST (14-35) U/L Alkaline Phosphatase (41-126) U/L Total Protein (6.2-8.2) d/dL Albumin (3.8-4.9) d/dL Albumin/Globulin Ratio (1.60-3.17) Ratio CSF Glucose (40-70) mg/dL 08/26/23 08/26/23 08/26/23 Range/Units 05:56 05:56 06:09 RBC (4.40-5.60) X 10*6/uL Hgb (13.0-17.0) d/dL Hct (39.6-50.0) % MCV (80.0-97.0) FL MCH (27.0-32.0) pg RDW (11.5-14.5) % Eosinophils # (0.04-0.35) X 10*3/uL NRBC/100 WBC Diff (0.00-0.01) X 10*3/uL APTT 49.2 H (22.0-30.0) sec Chloride 94 L (96-109) mmol/L Carbon Dioxide 32.7 H (21.6-31.8) mmol/L Anion Gap 14.30 H (4.00-12.00) mmol/L Glucose 209 H (70-110) mg/dL POC Glucose (mg/dL) 231 H (70-110) mg/dL AST 36 H (14-35) U/L Alkaline Phosphatase 136 H (41-126) U/L Total Protein 5.5 L (6.2-8.2) d/dL Albumin 3.1 L (3.8-4.9) d/dL Albumin/Globulin Ratio 1.29 L (1.60-3.17) Ratio CSF Glucose (40-70) mg/dL 08/26/23 Range/Units 10:06 RBC (4.40-5.60) X 10*6/uL Hgb (13.0-17.0) d/dL Hct (39.6-50.0) % MCV (80.0-97.0) FL MCH (27.0-32.0) pg RDW (11.5-14.5) % Eosinophils # (0.04-0.35) X 10*3/uL NRBC/100 WBC Diff (0.00-0.01) X 10*3/uL APTT (22.0-30.0) sec Chloride (96-109) mmol/L Carbon Dioxide (21.6-31.8) mmol/L Anion Gap (4.00-12.00) mmol/L Glucose (70-110) mg/dL POC Glucose (mg/dL) 384 H (70-110) mg/dL AST (14-35) U/L Alkaline Phosphatase (41-126) U/L Total Protein (6.2-8.2) d/dL Albumin (3.8-4.9) d/dL Albumin/Globulin Ratio (1.60-3.17) Ratio CSF Glucose (40-70) mg/dL Microbiology - Last 24 Hours (Table) 08/25/23 06:50 CSF Gram Stain - Preliminary Cerebral Spinal Fluid Assessment and Plan (1) Anemia Current Visit: Yes Status: Acute Priority: Medium Code(s): D64.9 - ANEMIA, UNSPECIFIED SNOMED Code(s): 512747665 (2) Hypoglycemia Current Visit: Yes Status: Resolved Priority: High Code(s): E16.2 - HYPOGLYCEMIA, UNSPECIFIED SNOMED Code(s): 289287796 (3) Hyponatremia Current Visit: Yes Status: Resolved Priority: High Code(s): E87.1 - HYPO- OSMOLALITY AND HYPONATREMIA SNOMED Code(s): 32434718 (4) Adenocarcinoma of lung, stage 4 Current Visit: Yes Status: Chronic Priority: High Code(s): C34.90 - MALIGNANT NEOPLASM OF UNSP PART OF UNSP BRONCHUS OR LUNG SNOMED Code(s): 382027921 (5) Pulmonary embolism Current Visit: Yes Status: Acute Priority: High Code(s): I26.99 - OTHER PULMONARY EMBOLISM WITHOUT ACUTE COR PULMONALE SNOMED Code(s): 86541470 Plan: Uncontrolled diabetes -Patient spent nearly 3 weeks at [facility], with multiple adjustments to his medications to try and control his blood sugars. He has been admitted here for 9 days -blood glucose seems to be better controlled but remains labile Hyponatremia-Resolved -Nephrology following Metastatic non-small cell lung cancer -pt is sp 4 cycles carbo/alimta/keytruda, last given on 06/15. Last imaging was just about 7 weeks ago. There was no evidence of disease progression, some areas were questionable for some slight progress. [place] to be a pseudo- progression from immunotherapy. Plan was to cont on treatment and reassess after 3 more cycles. Pt had CTA of the chest done to rule out PE-there was a PE reported in the RUL, pt has been on heparin drip since the (had this documented wrong in yesterdays note). The CTA also reported that there is some progression of known lung lesions and a new RLL 1.7cm mass soft tissue mass seen-this was discussed with the pt. Discussed with pt that in his current physical condition he is not a candidate for cancer treatment. -Due to patient's persistent encephalopathy symptoms CT if the head with contrast was ordered, no new findings, nothing to suggest recurrence. LP with analysis of CSF ordered. -Intractable N/V persists. Have asked Surgery to evaluate for EGD to see if there is a underlying cause. Discussed with Surgical PA. Pending Surgery assessment and recommendations -Immunotherapy-related side effects have been worked up extensively, all results have been normal when assessed. Nothing to suggest immunotherapy as a cause for pt current condition Anemia -Multifactorial including inflammation, prolonged illness/hospitalization. -Anemia workup most consistent with anemia of inflammation, saturation is normal . No deficiency to be supplemented at this time. - Transfuse for Hgb <7 PE -2/2 malignancy, chronic illness, prolonged hospitalizations in the last 2 months -ON heparin drip until all procedures completed Family meeting Today. Dr. Heredia explained to the family that despite all workup unfortunately, no definitive reason for patient's altered mental status and progressive physical decline has been identified. CT brain did not show new or progressive disease. CTA chest did show small progression in existing lesions and 1 new pleural based lesion, not really felt to be the cause for pt signifi cant change but, progressive malignancy can not be completely ruled out. Progressive malignancy would be the more likely cause for pt decline, even without testing to support the same. Currently pending results from LP and EGD planned for tomorrow. If either of these tests is positive for metastatic disease, hospice is recommended, pt is not in any physical condition to have further cancer treatment. Family understands and agrees. If these tests do not provide an underlying, correctable problem then unfortunately palliative/hospice care will still be recommended. It will be assumed malignancy is the cause for decline and it is agreed that pt is not a candidate for the same. All questions were answered to family satisfaction. Will update them with results of testing as soon as available. Will cont to f/u with pt and see how he is doing. >45 min counseling and coordinating care attests: I have seen and examined patient, performed H&P, developed impression and plan of care. Discussed with dictator. Agree with documentation, dictated as a scribe.
[2023-08-26 14:53] LABS: Glucose,Whole Blood 242 mg/dL (70-110)
[2023-08-26 18:04] LABS: Glucose,Whole Blood 193 mg/dL (70-110)
--- NOTE | 2023-08-26 21:52 | PN ---
PROGRESS NOTE SUBJECTIVE: The patient had a spinal tap to look for any paraneoplastic syndrome admitted with hyponatremia, severe hypoglycemia, metastatic non-small cell lung cancer. He gets confused, forgettable, but he is having trouble with finding words, but he was talking with me fine last night. If he change positions independently, he can sit at the bedside independently a few minutes. OBJECTIVE: VITAL SIGNS: Temperature 98.6 pulse 105, respiratory rate 16 to 18, blood pressure 118/73, O2 of 99% on room air. HEENT: Normocephalic, atraumatic. Pupils equal, round, reactive. MUSCULOSKELETAL: He has generalized weakness. NEUROLOGIC: Cranial nerves intact. PSYCH: Poor mood and affect. LABORATORY DATA: White count 8.8, hemoglobin 9.3. His sugars are 384. ASSESSMENT: Anemia, hyperglycemia, hyponatremia, adenocarcinoma of the lung, pulmonary embolism. Progressive physical decline, altered mental status. Rule out paraneoplastic syndrome. Wait for EGD tomorrow, lumbar puncture. status post positive for metastatic disease. Hospice is recommended. Prognosis guarded. MMODL / IJN: [id number] /
[2023-08-26] MEDS: ATORVASTATIN 80 MG TAB PO SCH (22:52)
[2023-08-26] MEDS: EZETIMIBE 10 MG TAB PO SCH (22:53)
[2023-08-26 22:59] LABS: Glucose,Whole Blood 184 mg/dL (70-110)
[2023-08-26] MEDS: HEPARIN SOD,PORK IN 0.45% NACL 25,000 UNIT in 0.45% NACL 1 250ML.BAG IV SCH (22:59)
[2023-08-27] MEDS: HYDROmorphone 0.5 MG/0.5 ML SYRINGE IVP PRN ×3 (01:19→16:15)
[2023-08-27 03:05] LABS: Glucose,Whole Blood 152 mg/dL (70-110)
[2023-08-27] MEDS: INSULIN ASPART (NovoLOG) 100 UNIT/ML VIAL SQ SCH ×6 (03:06→23:30)
[2023-08-27] MEDS: LEVOTHYROXINE 125 MCG TAB PO SCH (06:35)
[2023-08-27 06:45] LABS: Glucose,Whole Blood 261 mg/dL (70-110)
[2023-08-27] MEDS: MIDODRINE 5 MG TAB PO SCH ×3 (07:37→17:54)
[2023-08-27] MEDS: HYDROCORTISONE SUCCINATE 100 MG/2 ML VIAL IV SCH ×2 (07:41→16:19)
[2023-08-27] MEDS: buPROPion 75 MG TAB PO SCH ×2 (07:42→20:34)
[2023-08-27] MEDS: DOCUSATE 100 MG CAP PO SCH ×2 (07:42→20:34)
[2023-08-27] MEDS: droNABinol 2.5 MG CAP PO SCH ×2 (07:42→20:35)
[2023-08-27] MEDS: MAGNESIUM OXIDE 400 MG TAB PO SCH (07:42)
[2023-08-27] MEDS: TAMSULOSIN 0.4 MG CAP.ER.24H PO SCH (07:42)
[2023-08-27] MEDS: QUEtiapine 25 MG TAB PO SCH ×3 (07:42→20:35)
[2023-08-27] MEDS: GABAPENTIN 100 MG CAP PO SCH ×3 (07:42→20:35)
[2023-08-27] MEDS: INSULIN DETEMIR (LEVEMIR) 100 UNIT/ML SYR SQ SCH (07:42)
[2023-08-27] MEDS: CARBAMIDE PEROXIDE 6.5% DROPS 15 ML BTL BOTH EARS SCH ×2 (07:42→20:35)
[2023-08-27] MEDS: PANTOPRAZOLE 40 MG TABLET PO SCH (07:42)
[2023-08-27] MEDS: IPRATROPIUM-ALBUTEROL 3 ML NEB INHALATION SCH ×4 (08:13→18:06)
[2023-08-27] MEDS: BUDESONIDE 0.5 MG/2 ML NEBU INHALATION SCH ×2 (08:14→18:11)
[2023-08-27 10:36] LABS: Glucose,Whole Blood 211 mg/dL (70-110)
[2023-08-27] MEDS ORDERED: IV FLUID CONTINUATION 100 ML IV ONE (13:41)
[2023-08-27] MEDS ORDERED: LIDOCAINE 1% INJ 10MG/ML (20 ML MDV) ONE (13:46)
[2023-08-27] MEDS ORDERED: PHENYLEPHRINE-0.9% NACL SYG 1,000 MCG/10 ML SYRINGE ONE (13:46)
[2023-08-27] MEDS ORDERED: PROPOFOL 10 MG/ML 20 ML VIAL IV ONE (13:46)
--- NOTE | 2023-08-27 14:01 | P.PCN ---
Date of Procedure: 08/27/23 Procedure(s) Performed: Preoperative Dx: Vomiting, anorexia Postoperative Dx: Retained food in stomach and esophagus Procedure: EGD Anesthesia: Sedation Endoscopist: Dr. Worrell Specimens: None Endoscopic Procedure: The patient was on the endoscopy table in the left decubitus position. The Olympus gastroscope was inserted into the oropharynx and passed under direct visualization to the region of the third portion of the duodenum. From that point the scope was slowly withdrawn inspecting all surfaces carefully. There were no neoplastic inflammatory or polypoid lesions throughout the duodenum. There was some mild increase volume of bile within the duodenum and some particulate matter there as well. The pylorus was widely patent. The stomach was carefully inspected. There was retained food seen throughout the stomach. There was no significant volume of liquid within the stomach. Retroflexion revealed a normal hiatus. The esophagus was then carefully examined. There were no neoplastic inflammatory or polypoid lesions throughout the visualized esophagus. Again some residual food like material in the esophagus was noted. The patient was then taken to the recovery room in stable condition per anesthesia guidelines. Recommendations: Continue nothing by mouth for now. If more alert consider bedside swallow evaluation. Concern for possible aspiration given mental status. Recent CAT scan of the chest reviewed. Gastric distention is noted. This did not visualize much of the abdomen. Consider further imaging of the abdomen if any residual nausea or vomiting.
[2023-08-27] MEDS: ASPIRIN 81 MG PO SCH (14:25)
[2023-08-27 14:27] LABS: Glucose,Whole Blood 164 mg/dL (70-110)
[2023-08-27 18:26] LABS: Glucose,Whole Blood 110 mg/dL (70-110)
[2023-08-27] MEDS: EZETIMIBE 10 MG TAB PO SCH (20:34)
[2023-08-27] MEDS: ATORVASTATIN 80 MG TAB PO SCH (20:34)
[2023-08-27 22:49] LABS: Glucose,Whole Blood 144 mg/dL (70-110)
[2023-08-28] MEDS: HYDROCORTISONE SUCCINATE 100 MG/2 ML VIAL IV SCH ×3 (01:41→15:49)
[2023-08-28 02:57] LABS: Glucose,Whole Blood 179 mg/dL (70-110)
[2023-08-28] MEDS: INSULIN ASPART (NovoLOG) 100 UNIT/ML VIAL SQ SCH ×5 (04:07→19:08)
[2023-08-28] MEDS: HEPARIN SOD,PORK IN 0.45% NACL 25,000 UNIT in 0.45% NACL 1 250ML.BAG IV SCH (05:39)
[2023-08-28 06:39] LABS: Glucose,Whole Blood 294 mg/dL (70-110)
[2023-08-28] MEDS: LEVOTHYROXINE 125 MCG TAB PO SCH (06:51)
[2023-08-28] MEDS: MIDODRINE 5 MG TAB PO SCH ×3 (08:05→17:47)
[2023-08-28] MEDS: GABAPENTIN 100 MG CAP PO SCH ×3 (08:05→19:08)
[2023-08-28] MEDS: ASPIRIN 81 MG PO SCH (08:08)
[2023-08-28] MEDS: QUEtiapine 25 MG TAB PO SCH ×3 (08:08→23:05)
[2023-08-28] MEDS: buPROPion 75 MG TAB PO SCH ×2 (08:08→23:04)
[2023-08-28] MEDS: DOCUSATE 100 MG CAP PO SCH ×2 (08:08→23:04)
[2023-08-28] MEDS: MAGNESIUM OXIDE 400 MG TAB PO SCH (08:08)
[2023-08-28] MEDS: droNABinol 2.5 MG CAP PO SCH ×2 (08:08→23:04)
[2023-08-28] MEDS: INSULIN DETEMIR (LEVEMIR) 100 UNIT/ML SYR SQ SCH (08:09)
[2023-08-28] MEDS: TAMSULOSIN 0.4 MG CAP.ER.24H PO SCH (08:09)
[2023-08-28] MEDS: PANTOPRAZOLE 40 MG TABLET PO SCH (08:09)
[2023-08-28] MEDS: CARBAMIDE PEROXIDE 6.5% DROPS 15 ML BTL BOTH EARS SCH (08:09)
[2023-08-28] MEDS: BUDESONIDE 0.5 MG/2 ML NEBU INHALATION SCH ×2 (08:27→20:29)
[2023-08-28] MEDS: IPRATROPIUM-ALBUTEROL 3 ML NEB INHALATION SCH ×4 (08:27→20:28)
[2023-08-28] MEDS: HYDROmorphone 0.5 MG/0.5 ML SYRINGE IVP PRN ×3 (08:36→20:19)
[2023-08-28 10:44] LABS: Glucose,Whole Blood 166 mg/dL (70-110)
--- NOTE | 2023-08-28 11:33 | P.PN ---
Subjective Progress Note Date: 08/28/23 CHIEF COMPLAINT: Nausea and vomiting HISTORY OF PRESENT ILLNESS: Patient is lying in bed comfortably. Discussed with nursing staff. No nausea or vomiting reported. Patient does report epigastric abdominal pain. Patient is status post EGD which did reveal retained food in the stomach and esophagus. He is currently nothing by mouth. Patient's cerebral spinal fluid had shown atypical cells present suspicious for metastatic non-small cell carcinoma. Patient is followed by oncology service. They have consulted hospice for patient. PHYSICAL EXAM: VITAL SIGNS: Reviewed. GENERAL: Well-developed in no acute distress. ABDOMEN: Soft. Nondistended. Mild tenderness to palpation epigastric area NEUROLOGIC: Alert and oriented. Cranial nerves II through XII grossly intact. ASSESSMENT: 1. Nausea and vomiting with Epigastric abdominal pain status post EGD revealing retained food in the stomach and esophagus 2. Non-small cell lung carcinoma 3. PE PLAN: -Oncology service has consulted hospice -Recommend to keep patient nothing by mouth for now Physician Crew Leader/Control Room Operator note has been reviewed by physician. Signing provider agrees with the documented findings, assessment, and plan of care. I have personally seen and examined the patient, reviewed the MEDICAL MANAGER /PAs history, exam and MDM and agree with the assessment and plan as written. Based on total visit time, I have performed more than 50% of the visit. As above: Patient with mild epigastric pain. Currently resting comfortably. H ospice was consulted after CSF findings. We'll sign off. Please call if needed. Objective - Vital Signs Vital signs: Vital Signs Temp 97.8 F 08/28/23 06:59 Pulse 92 08/28/23 08:41 Resp 19 08/28/23 06:59 BP 155/76 08/28/23 06:59 Pulse Ox 99 08/28/23 06:59 FiO2 Intake & Output 08/27/23 08/28/23 08/28/23 18:59 06:59 18:59 Intake Total 178.492 156.313 Output Total 1300 Balance 178.492 -1143.687 Weight 59.6 kg Intake: IV 50 Intake, IV Titration 128.492 156.313 Amount Heparin Sod,Pork in 0.45% 88.492 156.313 NaCl 25,000 unit In 0.45 % NaCl 1 250ml.bag @ 12 UNITS/KG/HR 4.92 mls/hr IV .Q24H [facility] Rx#: [id number] IV Fluid Continuation 100 40 ml @ 0 mls/hr IV .STK- [facility] Rx#:[id number] Output: Urine 1300 Other: Voiding Method Bedside Commode Urinal - Labs CBC & Chem 7: 08/26/23 05:56 08/26/23 05:56 Labs: Abnormal Lab Results - Last 24 Hours (Table) 08/27/23 08/27/23 08/27/23 Range/Units 10:34 14:26 22:47 APTT (22.0-30.0) sec POC Glucose (mg/dL) 211 H 164 H 144 H (70-110) mg/dL 08/28/23 08/28/23 08/28/23 Range/Units 02:56 06:09 06:38 APTT 57.9 H (22.0-30.0) sec POC Glucose (mg/dL) 179 H 294 H (70-110) mg/dL Microbiology - Last 24 Hours (Table) 08/25/23 06:50 CSF Gram Stain - Preliminary Cerebral Spinal Fluid CSF Culture - Preliminary
[2023-08-28 15:02] LABS: Glucose,Whole Blood 122 mg/dL (70-110)
[2023-08-28] MEDS: HYDROcodone/APAP 5-325MG 1 EACH TAB PO PRN (15:52)
--- NOTE | 2023-08-28 15:53 | P.PN ---
Subjective Progress Note Date: 08/28/23 Principal diagnosis: met NSCLC At today's visit patient is resting in bedside chair. Patient is reporting fatigue and generalized weakness. No other reported complaints at this time Objective - Vital Signs Vital signs: Vital Signs Temp 97.5 F L 08/28/23 13:12 Pulse 93 08/28/23 13:12 Resp 19 08/28/23 13:12 BP 127/72 08/28/23 13:12 Pulse Ox 100 08/28/23 13:12 FiO2 Intake & Output 08/27/23 08/28/23 08/28/23 18:59 06:59 18:59 Intake Total 178.492 156.313 Output Total 1300 Balance 178.492 -1143.687 Weight 59.6 kg Intake: IV 50 Intake, IV Titration 128.492 156.313 Amount Heparin Sod,Pork in 0.45% 88.492 156.313 NaCl 25,000 unit In 0.45 % NaCl 1 250ml.bag @ 12 UNITS/KG/HR 4.92 mls/hr IV .Q[facility]H [facility] Rx#: [id number] IV Fluid Continuation 100 40 ml @ 0 mls/hr IV .STK- [facility] Rx#:[id number] Output: Urine 1300 Other: Voiding Method Bedside Commode Urinal - Constitutional General appearance: Present: no acute distress - EENT ENT: Present: hearing grossly normal - Respiratory Details: breathing is even and unlabored - Cardiovascular Details: skin warm and dry - Integumentary Integumentary: Absent: cyanotic - Musculoskeletal Musculoskeletal: Present: generalized weakness - Labs CBC & Chem 7: 08/26/23 05:56 08/26/23 05:56 Labs: Abnormal Lab Results - Last 24 Hours (Table) 08/27/23 08/28/23 08/28/23 Range/Units 22:47 02:56 06:09 APTT 57.9 H (22.0-30.0) sec POC Glucose (mg/dL) 144 H 179 H (70-110) mg/dL 08/28/23 08/28/23 08/28/23 Range/Units 06:38 10:41 15:00 APTT (22.0-30.0) sec POC Glucose (mg/dL) 294 H 166 H 122 H (70-110) mg/dL Microbiology - Last 24 Hours (Table) 08/25/23 06:50 CSF Gram Stain - Preliminary Cerebral Spinal Fluid CSF Culture - Preliminary Assessment and Plan (1) Adenocarcinoma of lung, stage 4 Current Visit: Yes Status: Chronic Priority: High Code(s): C34.90 - MALIGNANT NEOPLASM OF UNSP PART OF UNSP BRONCHUS OR LUNG SNOMED Code(s): 166282754 (2) Anemia Current Visit: Yes Status: Acute Priority: Medium Code(s): D64.9 - ANEMIA, UNSPECIFIED SNOMED Code(s): 274651104 (3) Pulmonary embolism Current Visit: Yes Status: Acute Priority: High Code(s): I26.99 - OTHER PULMONARY EMBOLISM WITHOUT ACUTE COR PULMONALE SNOMED Code(s): 27885874 Plan: Anemia -Multifactorial including inflammation, prolonged illness/hospitalization. -Anemia workup most consistent with anemia of inflammation, saturation is normal. No deficiency to be supplemented at this time. - Transfuse for Hgb <7 PE -2/2 malignancy, chronic illness, prolonged hospitalizations in the last 2 months -On heparin drip until all procedures completed Metastatic non-small cell lung cancer -pt is sp 4 cycles carbo/alimta/keytruda, last given on 06/15. Last imaging was just about 7 weeks ago. There was no evidence of disease progression, some areas were questionable for some slight progress. [place] to be a pseudo- progression from immunotherapy. Plan was to cont on treatment and reassess after 3 more cycles. Pt had CTA of the chest done to rule out PE-there was a PE reported in the RUL, pt has been on heparin drip since the (had this docum ented wrong in yesterdays note). The CTA also reported that there is some progression of known lung lesions and a new RLL 1.7cm mass soft tissue mass seen-this was discussed with the pt. Discussed with pt that in his current physical condition he is not a candidate for cancer treatment. -Intractable N/V persists. Have asked Surgery to evaluate for EGD to see if there is a underlying cause. S/P EGD, retained food was noted in stomach and esophagus. Otherwise no neoplastic inflammatory or polyploid lesions noted on exam -Immunotherapy-related side effects have been worked up extensively, all results have been normal when assessed. Nothing to suggest immunotherapy as a cause for pt current condition -Due to patient's persistent encephalopathy symptoms, CT of the head with contrast was ordered, no new findings, nothing to suggest recurrence. LP with analysis of CSF ordered Family meeting was held yesterday. Dr. Heredia explained to the family that despite all workup unfortunately, no definitive reason for patient's altered mental status and progressive physical decline has been identified. CT brain did not show new or progressive disease. CTA chest did show small progression in existing lesions and 1 new pleural based lesion, not really felt to be the cause for pt significant change but, progressive malignancy can not be completely ruled out. Progressive malignancy would be the more likely cause for pt decline, even without testing to support the same. It was discussed pending results from LP and EGD, if either of these tests is positive for metastatic disease, hospice is recommended, pt is not in any physical condition to have further cancer treatment. Family understands and agrees. S/p LP, unfortunately CSF revealed atypical cells suspicious for metastatic non- small cell carcinoma. Spoke with daughter via telephone today regarding results of CSF. And that that fluid revealed suspicion for metastatic non-small cell carcinoma and with patient's acute changes in mental status this is consistent with further spread of disease. Unfortunately at this time due to further progression of disease and patients continued decline in health and performance status he is no longer a candidate for further cancer treatment and hospice would be recommended. Daughter was agreeable and will like to proceed with hospice. I did speak with patient today regarding the same but not sure how much he was able to understand and he stated that he would like to speak with family further about this. Hospice consult placed, requested family to be present for hospice meeting. All questions were answered to family satisfaction. attests: I have seen and examined patient, performed H&P, developed impression and plan of care. Discussed with dictator. Agree with documentation, dictated as a scribe. Time with Patient: Greater than 30
[2023-08-28 18:28] LABS: Glucose,Whole Blood 123 mg/dL (70-110)
--- NOTE | 2023-08-28 21:50 | PN ---
PROGRESS NOTE DATE OF SERVICE: 08/27/2023 SUBJECTIVE: A 63-year-old white male, remains on DuoNeb. Surgery has been seeing him, Dr. Worrell. Nausea, vomiting, gastric pain, status post EGD, retained food in the stomach and esophagus, non-small cell lung cancer, PE. Oncology Service has consulted hospice. Nothing by mouth for now. Put him in hospice if he is not getting better. PROGNOSIS: Guarded. MMODL / IJN: [id number] /
[2023-08-28 22:32] LABS: Glucose,Whole Blood 121 mg/dL (70-110)
[2023-08-28] MEDS: EZETIMIBE 10 MG TAB PO SCH (23:04)
[2023-08-28] MEDS: ATORVASTATIN 80 MG TAB PO SCH (23:05)
[2023-08-29] MEDS: INSULIN ASPART (NovoLOG) 100 UNIT/ML VIAL SQ SCH ×6 (00:16→18:20)
[2023-08-29] MEDS: CARBAMIDE PEROXIDE 6.5% DROPS 15 ML BTL BOTH EARS SCH ×3 (00:16→22:48)
[2023-08-29] MEDS ORDERED: hydrALAZINE HCL 20 MG/ML 1 ML VIAL IVP PRN (00:46)
[2023-08-29] MEDS: HYDROCORTISONE SUCCINATE 100 MG/2 ML VIAL IV SCH ×3 (01:12→16:01)
[2023-08-29 02:31] LABS: Glucose,Whole Blood 107 mg/dL (70-110)
[2023-08-29] MEDS: HEPARIN SOD,PORK IN 0.45% NACL 25,000 UNIT in 0.45% NACL 1 250ML.BAG IV SCH (04:43)
[2023-08-29 06:32] LABS: Glucose,Whole Blood 133 mg/dL (70-110)
[2023-08-29] MEDS: LEVOTHYROXINE 125 MCG TAB PO SCH (06:45)
[2023-08-29] MEDS: IPRATROPIUM-ALBUTEROL 3 ML NEB INHALATION SCH ×4 (07:25→20:28)
[2023-08-29] MEDS: BUDESONIDE 0.5 MG/2 ML NEBU INHALATION SCH ×2 (07:25→20:28)
[2023-08-29] MEDS: MIDODRINE 5 MG TAB PO SCH ×3 (08:09→17:27)
[2023-08-29] MEDS: QUEtiapine 25 MG TAB PO SCH ×3 (08:15→22:44)
[2023-08-29] MEDS: droNABinol 2.5 MG CAP PO SCH ×2 (08:15→22:44)
[2023-08-29] MEDS: DOCUSATE 100 MG CAP PO SCH ×2 (08:16→22:44)
[2023-08-29] MEDS: ASPIRIN 81 MG PO SCH (08:16)
[2023-08-29] MEDS: INSULIN DETEMIR (LEVEMIR) 100 UNIT/ML SYR SQ SCH ×2 (08:16→08:27)
[2023-08-29] MEDS: GABAPENTIN 100 MG CAP PO SCH ×3 (08:16→22:48)
[2023-08-29] MEDS: MAGNESIUM OXIDE 400 MG TAB PO SCH (08:16)
[2023-08-29] MEDS: METOPROLOL SUCCINATE (ER) 25 MG TAB.ER.24H PO SCH (08:16)
[2023-08-29] MEDS: PANTOPRAZOLE 40 MG TABLET PO SCH (08:16)
[2023-08-29] MEDS: buPROPion 75 MG TAB PO SCH ×2 (08:16→22:43)
[2023-08-29] MEDS: TAMSULOSIN 0.4 MG CAP.ER.24H PO SCH (08:16)
[2023-08-29] MEDS: HYDROcodone/APAP 5-325MG 1 EACH TAB PO PRN ×2 (08:31→16:01)
--- NOTE | 2023-08-29 10:16 | P.PN ---
Subjective Progress Note Date: 08/29/23 Principal diagnosis: Acute on chronic respiratory failure on 4 L oxygen Non-small cell cancer Center/stage IV adenocarcinoma of the lung Chronic anemia Pulmonary embolism Generalized weakness and medical debility End-stage COPD Patient seen eval reexamined while covering for Dr. Robert Acevedo, on today's examination 08/29/2023, patient seen eval examined, awake and alert, is still have ongoing shortness of breath, patient remains on 4 L oxygen, he remains on IV heparin, intermittent nausea and abdominal pain is present, general surgery that about has been following patient is status post EGD no active issues except some retained food content seen in the stomach and esophagus, patient has other active medical problems including non-small cell cancer and pulmonary embolism GI service oncology service has been following patient is nothing by mouth being considered for hospice service Objective - Vital Signs Vital signs: Vital Signs Temp 97.8 F 08/29/23 07:05 Pulse 94 08/29/23 07:37 Resp 16 08/29/23 07:05 BP 125/72 08/29/23 07:05 Pulse Ox 99 08/29/23 07:05 FiO2 Intake & Output 08/28/23 08/29/23 08/29/23 18:59 06:59 18:59 Intake Total 476.433 31.604 Output Total 2900 Balance -2423.567 31.604 Weight 65 kg Intake: Intake, IV Titration 476.433 31.604 Amount Heparin Sod,Pork in 0.45% 236.433 31.604 NaCl 25,000 unit In 0.45 % NaCl 1 250ml.bag @ 12 UNITS/KG/HR 4.92 mls/hr IV .Q24H [facility] Rx#: [id number] IV Fluid Continuation 100 240 ml @ 0 mls/hr IV .STK- [facility] Rx#:[id number] Output: Urine 2900 Other: Voiding Method Bedside Commode Urinal # Voids 4 4 - Exam - Constitutional General appearance: Present: no acute distress - EENT ENT: Present: hearing grossly normal - Respiratory Details: breathing is even and unlabored - Cardiovascular Details: skin warm and dry - Integumentary Integumentary: Absent: cyanotic - Musculoskeletal Musculoskeletal: Present: generalized weakness - Labs CBC & Chem 7: 08/26/23 05:56 08/26/23 05:56 Labs: Abnormal Lab Results - Last 24 Hours (Table) 08/28/23 08/28/23 08/28/23 Range/Units 10:41 15:00 18:27 APTT (22.0-30.0) sec POC Glucose (mg/dL) 166 H 122 H 123 H (70-110) mg/dL 08/28/23 08/29/23 08/29/23 Range/Units 22:30 06:12 06:28 APTT 75.9 H (22.0-30.0) sec POC Glucose (mg/dL) 121 H 133 H (70-110) mg/dL Microbiology - Last 24 Hours (Table) 08/25/23 06:50 CSF Gram Stain - Preliminary Cerebral Spinal Fluid CSF Culture - Preliminary Assessment and Plan Assessment: Acute on chronic respiratory failure on 4 L oxygen due to UI Non-small cell cancer Center/stage IV adenocarcinoma of the lung Chronic anemia Pulmonary embolism Generalized weakness and medical debility End-stage COPD Plan: Continue IV heparin, will discuss with oncology service about more definitive intervention in terms of anticoagulant Continue gently rehydrated Increase activity as tolerated Hospice evaluation pending Time with Patient: Greater than 30
[2023-08-29 10:51] LABS: Glucose,Whole Blood 226 mg/dL (70-110)
[2023-08-29] MEDS: HYDROmorphone 0.5 MG/0.5 ML SYRINGE IVP PRN ×3 (14:32→22:55)
[2023-08-29 14:44] LABS: Glucose,Whole Blood 176 mg/dL (70-110)
[2023-08-29 18:20] LABS: Glucose,Whole Blood 218 mg/dL (70-110)
[2023-08-29 22:24] LABS: Glucose,Whole Blood 160 mg/dL (70-110)
[2023-08-29] MEDS: ATORVASTATIN 80 MG TAB PO SCH (22:45)
[2023-08-29] MEDS: EZETIMIBE 10 MG TAB PO SCH (22:45)
[2023-08-30] MEDS: INSULIN ASPART (NovoLOG) 100 UNIT/ML VIAL SQ SCH ×6 (00:37→18:35)
[2023-08-30] MEDS: HYDROCORTISONE SUCCINATE 100 MG/2 ML VIAL IV SCH ×2 (00:52→08:01)
[2023-08-30 02:29] LABS: Glucose,Whole Blood 247 mg/dL (70-110)
[2023-08-30] MEDS: HEPARIN SOD,PORK IN 0.45% NACL 25,000 UNIT in 0.45% NACL 1 250ML.BAG IV SCH (03:30)
[2023-08-30 05:57] LABS: Glucose,Whole Blood 185 mg/dL (70-110)
[2023-08-30] MEDS: HYDROmorphone 0.5 MG/0.5 ML SYRINGE IVP PRN ×4 (06:07→21:04)
[2023-08-30] MEDS: LEVOTHYROXINE 125 MCG TAB PO SCH (06:21)
[2023-08-30] MEDS: IPRATROPIUM-ALBUTEROL 3 ML NEB INHALATION SCH ×4 (07:25→20:28)
[2023-08-30] MEDS: BUDESONIDE 0.5 MG/2 ML NEBU INHALATION SCH ×2 (07:25→20:28)
[2023-08-30] MEDS: MIDODRINE 5 MG TAB PO SCH ×3 (07:49→17:49)
[2023-08-30] MEDS: ASPIRIN 81 MG PO SCH (08:00)
[2023-08-30] MEDS: PANTOPRAZOLE 40 MG TABLET PO SCH (08:00)
[2023-08-30] MEDS: DOCUSATE 100 MG CAP PO SCH ×2 (08:00→22:03)
[2023-08-30] MEDS: GABAPENTIN 100 MG CAP PO SCH ×4 (08:00→22:03)
[2023-08-30] MEDS: TAMSULOSIN 0.4 MG CAP.ER.24H PO SCH (08:00)
[2023-08-30] MEDS: droNABinol 2.5 MG CAP PO SCH ×2 (08:00→22:03)
[2023-08-30] MEDS: METOPROLOL SUCCINATE (ER) 25 MG TAB.ER.24H PO SCH (08:00)
[2023-08-30] MEDS: HYDROcodone/APAP 5-325MG 1 EACH TAB PO PRN (08:00)
[2023-08-30] MEDS: QUEtiapine 25 MG TAB PO SCH ×4 (08:00→22:03)
[2023-08-30] MEDS: buPROPion 75 MG TAB PO SCH ×2 (08:01→22:03)
[2023-08-30] MEDS: INSULIN DETEMIR (LEVEMIR) 100 UNIT/ML SYR SQ SCH (08:01)
[2023-08-30] MEDS: MAGNESIUM OXIDE 400 MG TAB PO SCH (08:01)
[2023-08-30] MEDS: CARBAMIDE PEROXIDE 6.5% DROPS 15 ML BTL BOTH EARS SCH ×2 (08:02→22:03)
--- NOTE | 2023-08-30 10:08 | P.PN ---
Subjective Progress Note Date: 08/30/23 Patient is NPO due to abdominal pain. He is lethargic on exam. No current abdominal pain. He is planning to be hospice. Okay, for diet as tolerated. He may have recurrent abdominal pain however. Objective - Vital Signs Vital signs: Vital Signs Temp 97.8 F 08/30/23 07:04 Pulse 86 08/30/23 07:32 Resp 18 08/30/23 07:04 BP 144/74 08/30/23 07:04 Pulse Ox 98 08/30/23 07:04 FiO2 Intake & Output 08/29/23 08/30/23 08/30/23 18:59 06:59 18:59 Intake Total 31.604 324.925 56.717 Output Total 1625 Balance -1593.396 324.925 56.717 Weight 66.5 kg Intake: Intake, IV Titration 31.604 324.925 56.717 Amount Heparin Sod,Pork in 0.45% 31.604 201.925 56.717 NaCl 25,000 unit In 0.45 % NaCl 1 250ml.bag @ 12 UNITS/KG/HR 4.92 mls/hr IV .Q24H [facility] Rx#: [id number] IV Fluid Continuation 100 123 ml @ 0 mls/hr IV .STK- [facility] Rx#:[id number] Output: Urine 1625 Other: Voiding Method Bedside Commode Bedside Commode Bedside Commode Urinal Urinal Urinal - Labs CBC & Chem 7: 08/26/23 05:56 08/26/23 05:56 Labs: Abnormal Lab Results - Last 24 Hours (Table) 08/29/23 08/29/23 08/29/23 Range/Units 10:48 14:41 18:18 APTT (22.0-30.0) sec POC Glucose (mg/dL) 226 H 176 H 218 H (70-110) mg/dL 08/29/23 08/30/23 08/30/23 Range/Units 22:23 02:27 05:55 APTT (22.0-30.0) sec POC Glucose (mg/dL) 160 H 247 H 185 H (70-110) mg/dL 08/30/23 Range/Units 07:29 APTT 46.9 H (22.0-30.0) sec POC Glucose (mg/dL) (70-110) mg/dL Microbiology - Last 24 Hours (Table) 08/25/23 06:50 CSF Gram Stain - Final Cerebral Spinal Fluid CSF Culture - Final
--- NOTE | 2023-08-30 10:15 | P.PN ---
Subjective Progress Note Date: 08/30/23 Principal diagnosis: Acute on chronic respiratory failure on 4 L oxygen Non-small cell cancer Center/stage IV adenocarcinoma of the lung Chronic anemia Pulmonary embolism Generalized weakness and medical debility End-stage COPD 08/30/2023, patient seen eval reexamined, somnolent but arousable waking up, he denies any chest pain, remains nothing by mouth noted that surgical services have cleared patient to eat will ask speech and swallow to evaluate, labs are not done today PTT is 46.9 on IV heparin, blood sugar is 185 patient remains on IV heparin for pulmonary embolism can be switched to direct oral anticoagulant once cleared by speech and swallow 08/29/2023, Patient seen eval reexamined while covering for Dr. Robert Acevedo, on today's examination 08/29/2023, patient seen eval examined, awake and alert, is still have ongoing shortness of breath, patient remains on 4 L oxygen, he remains on IV heparin, intermittent nausea and abdominal pain is present, general surgery that about has been following patient is status post EGD no active issues except some retained food content seen in the stomach and esophagus, patient has other active medical problems including non-small cell cancer and pulmonary embolism GI service oncology service has been following patient is nothing by mouth being considered for hospice service Objective - Vital Signs Vital signs: Vital Signs Temp 97.8 F 08/30/23 07:04 Pulse 86 08/30/23 07:32 Resp 18 08/30/23 07:04 BP 144/74 08/30/23 07:04 Pulse Ox 98 08/30/23 07:04 FiO2 Intake & Output 08/29/23 08/30/23 08/30/23 18:59 06:59 18:59 Intake Total 31.604 324.925 56.717 Output Total 1625 Balance -1593.396 324.925 56.717 Weight 66.5 kg Intake: Intake, IV Titration 31.604 324.925 56.717 Amount Heparin Sod,Pork in 0.45% 31.604 201.925 56.717 NaCl 25,000 unit In 0.45 % NaCl 1 250ml.bag @ 12 UNITS/KG/HR 4.92 mls/hr IV .Q24H [facility] B[facility]S AT [facility] Rx#: [id number] IV Fluid Continuation 100 123 ml @ 0 mls/hr IV .STK- [facility] Rx#:[id number] Output: Urine 1625 Other: Voiding Method Bedside Commode Bedside Commode Bedside Commode Urinal Urinal Urinal - Exam - Constitutional General appearance: Present: no acute distress - EENT ENT: Present: hearing grossly normal - Respiratory Details: breathing is even and unlabored - Cardiovascular Details: skin warm and dry - Integumentary Integumentary: Absent: cyanotic - Musculoskeletal Musculoskeletal: Present: generalized weakness - Labs CBC & Chem 7: 08/26/23 05:56 08/26/23 05:56 Labs: Abnormal Lab Results - Last 24 Hours (Table) 08/29/23 08/29/23 08/29/23 Range/Units 10:48 14:41 18:18 APTT (22.0-30.0) sec POC Glucose (mg/dL) 226 H 176 H 218 H (70-110) mg/dL 08/29/23 08/30/23 08/30/23 Range/Units 22:23 02:27 05:55 APTT (22.0-30.0) sec POC Glucose (mg/dL) 160 H 247 H 185 H (70-110) mg/dL 08/30/23 Range/Units 07:29 APTT 46.9 H (22.0-30.0) sec POC Glucose (mg/dL) (70-110) mg/dL Microbiology - Last 24 Hours (Table) 08/25/23 06:50 CSF Gram Stain - Final Cerebral Spinal Fluid CSF Culture - Final Assessment and Plan Assessment: Acute on chronic respiratory failure on 4 L oxygen due to UI Non-small cell cancer Center/stage IV adenocarcinoma of the lung Chronic anemia Pulmonary embolism Generalized weakness and medical debility End-stage COPD Plan: Continue IV heparin, will discuss with oncology service about more definitive intervention in terms of anticoagulant however patient be started on L request 2.5 twice a day and agree with oncology service starting tomorrow, we'll consult speech for swallow evaluation Date titrated down the hydrocortisone as well Continue gently rehydrated Increase activity as tolerated Hospice evaluation pending Time with Patient: Greater than 30
[2023-08-30 11:02] LABS: Glucose,Whole Blood 141 mg/dL (70-110)
[2023-08-30 14:41] LABS: Glucose,Whole Blood 112 mg/dL (70-110)
[2023-08-30 18:16] LABS: Glucose,Whole Blood 200 mg/dL (70-110)
[2023-08-30 20:52] VITALS: PULSE 79; RESP 18; TEMP 96.9
[2023-08-30] MEDS ORDERED: HYDROCORTISONE SUCCINATE 100 MG/2 ML VIAL IV SCH (21:00)
[2023-08-30] MEDS: ATORVASTATIN 80 MG TAB PO SCH (22:02)
[2023-08-30] MEDS: EZETIMIBE 10 MG TAB PO SCH (22:03)
[2023-08-30] MEDS ORDERED: ACETAMINOPHEN SUPPOSITORY 650 MG SUPP RECTAL PRN (22:12)
[2023-08-30] MEDS ORDERED: MORPHINE SULFATE 2 MG/ML SYRINGE IV PRN (22:15)
[2023-08-30] MEDS ORDERED: LORazepam 2 MG/ML INJ IV PRN (22:15)
[2023-08-30] MEDS ORDERED: ATROPINE OPHTH SOLN 1% 5ML BTL SUBLINGUAL PRN (22:15)
[2023-08-30 22:17] VITALS: BP 69/39
[2023-08-30] MEDS ORDERED: MORPHINE SULFATE (100 MG/2 ML) 100 MG in SODIUM CHLORIDE 0.9% 100 ML IV SCH (22:30)
[2023-08-30] MEDS ORDERED: SCOPOLAMINE 1 MG/72 HR PATCH TRANSDERM SCH (22:30)
--- NOTE | 2023-08-31 12:01 | P.DS ---
Providers Date of admission: 08/16/23 16:00 Expected date of discharge: 08/31/23 ( 08/31/23 1:07 AM) Attending physician: Robert Acevedo Consults: 08/16/23 15:55 Consult Physician Urgent Consulting Provider: Karin Bhat Consult Reason/Comments: recurrent hyponatremia Do you want consulting provider notified?: Yes 08/16/23 20:35 Consult Physician Routine Consulting Provider: Junior Heredia Consult Reason/Comments: cancer Do you want consulting provider notified?: Yes 08/16/23 20:54 Consult Physician Urgent Consulting Provider: Alexandro Childs Consult Reason/Comments: hypogylcemia, hyponatremia Do you want consulting provider notified?: Already Contacted 08/19/23 10:51 Consult Physician Routine Consulting Provider: Percy Mars Consult Reason/Comments: persistent urinary retention Do you want consulting provider notified?: Yes 08/30/23 08:13 Consult Physician Routine Consulting Provider: Ragini Hernandez Consult Reason/Comments: gastroparesis Do you want consulting provider notified?: Yes Primary care physician: Robert Acevedo [facility] Course: 08/30/2023, patient seen eval reexamined, somnolent but arousable waking up, he denies any chest pain, remains nothing by mouth noted that surgical services have cleared patient to eat will ask speech and swallow to evaluate, labs are not done today PTT is 46.9 on IV heparin, blood sugar is 185 patient remains on IV heparin for pulmonary embolism can be switched to direct oral anticoagulant once cleared by speech and swallow 08/29/2023, Patient seen eval reexamined while covering for Dr. Robert Acevedo, on today's examination 08/29/2023, patient seen eval examined, awake and alert, is still have ongoing shortness of breath, patient remains on 4 L oxygen, he remains on IV heparin, intermittent nausea and abdominal pain is present, general surgery that about has been following patient is status post EGD no active issues except some retained food content seen in the stomach and esophagus, patient has other active medical problems including non-small cell cancer and pulmonary embolism GI service oncology service has been following patient is nothing by mouth being considered for hospice service Assessment: Acute on chronic respiratory failure on 4 L oxygen due to UIP Non-small cell cancer Center/stage IV adenocarcinoma of the lung Chronic anemia Pulmonary embolism Generalized weakness and medical debility End-stage COPD Health Concerns: Patient syndrome blood pressure required fluid bolus of 1 500 mL blood pressure did not improve, patient remains lethargic poorly responsive, daughter expressed her wishes to proceed with comfort care and not to transfer patient to the ICU comfort measures initiated as per family and patient wishes. Patient did drop his blood pressure required fluid bolus of 500 mL blood pressure did not improve, patient remains lethargic poorly responsive, daughter expressed her wishes to proceed with comfort care and not to transfer patient to the ICU comfort measures initiated as per family and patient wishes, patient on 08/31/2023 at 1:07 AM Patient Condition at Discharge: Serious Plan - Discharge Summary Discharge Rx Participant: No New Discharge Prescriptions: No Action Metoprolol Succinate (ER) [Toprol XL] 25 mg PO DAILY Clopidogrel [Plavix] 75 mg PO DAILY #90 tab Multivitamins, Thera [Multivitamin (formulary)] 1 tab PO DAILY predniSONE 5 mg PO DAILY Pantoprazole Sodium [Protonix] 40 mg PO DAILY Magnesium Oxide [Magox 400] 400 mg PO DAILY HYDROcodone/APAP 5-325MG [Bascom 5-325] 1 tab PO Q6HR PRN PRN Reason: Pain Lidocaine 5% Patch [Lidoderm] 1 patch TOPICAL DAILY L.acidoph,Paracasei, B.lactis [Probiotic] 1 cap PO BID Insulin Lispro [humaLOG Kwikpen] 10 unit SQ AC-TID Gabapentin [Neurontin] 100 mg PO TID droNABinol [Marinol] 2.5 mg PO BID ceFAZolin [Kefzol] 2 gm IVP Q8HR Aspirin EC [Ecotrin Low Dose] 81 mg PO DAILY #30 tab Atorvastatin [Lipitor] 80 mg PO HS #90 tab Ondansetron [Zofran] 4 mg PO Q4H PRN PRN Reason: Nausea Cholecalciferol [Vitamin D3 (25 Mcg = 1000 Iu)] 50 mcg PO DAILY Levothyroxine Sodium [Synthroid] 100 mcg PO DAILY Midodrine [ProAmatine] 5 mg PO AC-TID 0.9 % Sodium Chloride [Sodium Chloride Flush] 10 ml IV Q8H Ipratropium-Albuterol Nebulize [Duoneb 0.5 mg-3 mg/3 ml Soln] 3 ml INHALATION RT-Q6H Insulin Lispro [humaLOG Kwikpen] See Protocol SQ ACHS Ezetimibe [Zetia] 10 mg PO HS Carbamide Peroxide [Debrox Otic] 5 drops BOTH EARS BID buPROPion [Wellbutrin] 150 mg PO BID Budesonide [Pulmicort] 0.5 mg INHALATION RT-BID Acyclovir Sodium Intravenous Solution 635 mg IV TID Discharge Medication List Aspirin EC [Ecotrin Low Dose] 81 mg PO DAILY #30 tab 03/29/21 [Rx] Atorvastatin [Lipitor] 80 mg PO HS #90 tab 03/29/21 [Rx] Metoprolol Succinate (ER) [Toprol XL] 25 mg PO DAILY 10/05/22 [History] Clopidogrel [Plavix] 75 mg PO DAILY #90 tab 10/07/22 [Rx] Multivitamins, Thera [Multivitamin (formulary)] 1 tab PO DAILY 12/16/22 [History] Cholecalciferol [Vitamin D3 (25 Mcg = 1000 Iu)] 50 mcg PO DAILY 07/06/23 [History] Ondansetron [Zofran] 4 mg PO Q4H PRN 07/06/23 [History] 0.9 % Sodium Chloride [Sodium Chloride Flush] 10 ml IV Q8H 08/16/23 [History] Acyclovir Sodium Intravenous Solution 635 mg IV TID 08/16/23 [History] Budesonide [Pulmicort] 0.5 mg INHALATION RT-BID 08/16/23 [History] Carbamide Peroxide [Debrox Otic] 5 drops BOTH EARS BID 08/16/23 [History] Ezetimibe [Zetia] 10 mg PO HS 08/16/23 [History] Gabapentin [Neurontin] 100 mg PO TID 08/16/23 [History] HYDROcodone/APAP 5-325MG [Bascom 5-325] 1 tab PO Q6HR PRN 08/16/23 [History] Insulin Lispro [humaLOG Kwikpen] 10 unit SQ AC-TID 08/16/23 [History] Insulin Lispro [humaLOG Kwikpen] See Protocol SQ ACHS 08/16/23 [History] Ipratropium-Albuterol Nebulize [Duoneb 0.5 mg-3 mg/3 ml Soln] 3 ml INHALATION RT-Q6H 08/16/23 [History] L.acidoph,Paracasei, B.lactis [Probiotic] 1 cap PO BID 08/16/23 [History] Levothyroxine Sodium [Synthroid] 100 mcg PO DAILY 08/16/23 [History] Lidocaine 5% Patch [Lidoderm] 1 patch TOPICAL DAILY 08/16/23 [History] Magnesium Oxide [Magox 400] 400 mg PO DAILY 08/16/23 [History] Midodrine [ProAmatine] 5 mg PO AC-TID 08/16/23 [History] Pantoprazole Sodium [Protonix] 40 mg PO DAILY 08/16/23 [History] buPROPion [Wellbutrin] 150 mg PO BID 08/16/23 [History] ceFAZolin [Kefzol] 2 gm IVP Q8HR 08/16/23 [History] droNABinol [Marinol] 2.5 mg PO BID 08/16/23 [History] predniSONE 5 mg PO DAILY 08/16/23 [History] Discharge Disposition: Plan of Treatment: n/a - Preliminary Cause of Preliminary Cause of : Lung cancer
--- NOTE | 2023-09-01 17:38 | CDI ---
Documentation Clarification Form Date: 09/01/2023 05:16:26 PM From: Ellie Presley Phone: Admit Date: 08/16/2023 04:00:00 PM Patient Name: Neptali Chilel Visit Number: [id number] Discharge Date: 08/31/2023 04:04:00 AM ATTENTION: The Clinical Documentation Specialists (CDI) and [facility] Coding Staff appreciate your assistance in clarifying documentation. Please respond to the clarification below the line at the bottom and electronically sign. The CDI & [facility] Coding staff will review the response and follow-up if needed. Please note: Queries are made part of the Legal Health Record. If you have any questions, please contact the author of this message via ITS. Dr. Robert Acevedo Your patient has the documented diagnosis of differing types of CHF. Additional clarification regarding the type of CHF is requested. CHF-chronic diastolicdysfunction ED Note and PMH notes Heart failure with mildly reduced EF, EF 45% per Dr. Ellis Progress Note 08/22 History/Risk Factors: 63yo M, ,hyponatremia,abdominal wall cellulitis, ACHRF on 4L O2, lung Cx w mets, chronic anemia, subseg PE, emphysema, end-stage COPD Clinical Indicators: VS/Pulse OX: O2 Sat by Pulse 96 Echocardiogram Results: Left ventricular systolic function [id number]% with inferior wall hypokinesis; RV sizedoes not appearenlarged Chest x ray: Heart/mediastinum: Heart appears mildlyenlarged. Mildlytortuousaorta. Treatment: Discontinue Plavix. Continue aspirin and atorvastatin; Continue IV heparin drip. If hemoglobin stable, with transition to Eliquis 10mg twice a day for 7 days and then 5 mg twice a day In your professional opinion, can you please clarify the type of CHF if known? [ ] Chronic Systolic Heart Failure (reduced EF) [ ] Chronic Diastolic Heart Failure (preserved EF) [ ] Chronic Systolic & Diastolic Heart Failure [ ] Other, please specify [ ] Unable to determine (Template Last Revised: December 2020) MTDD
--- NOTE | 2023-09-01 17:54 | CDI ---
Documentation Clarification Form Date: 09/01/2023 05:46 PM From: Ellie Presley Phone: Admit Date: 08/16/2023 04:00:00 PM Patient Name: Neptali Chilel Visit Number: [id number] Discharge Date: 08/31/2023 04:04:00 AM ATTENTION: The Clinical Documentation Specialists (CDI) and [facility] Coding Staff appreciate your assistance in clarifying documentation. Please respond to the clarification below the line at the bottom and electronically sign. The CDI & [facility] Coding staff will review the response and follow-up if needed. Please note: Queries are made part of the Legal Health Record. If you have any questions, please contact the author of this message via ITS. Dr. Robert Acevedo Your patient has the documented diagnosis malnutrition per your 08/22 Progress Note. Additional clarification regarding the acuity is requested. History/Risk Factors: 63yo M, ,hyponatremia,abdominal wall cellulitis, ACHRF on 4L O2, lung Cx w mets, chronic anemia, subseg PE, emphysema, end-stage COPD, malnutrition Clinical Indicators: BMI: 23.7 EGD: Vomiting,anorexia; PostoperativeDx:Retainedfoodin stomach and esophagus Treatment: Continue NPO for now. If more alert consider bedside swallowevaluation. Concern for possibleaspirationgiven mental status. RecentCAT scanof the chest reviewed. Gastricdistentionis noted. This did not visualize much of the abdomen. Consider furtherimagingof the abdomen if anyresidualnauseaorvomiting. Patient Please clarify the severity of malnutrition, if known: [ ] Mild Protein-Calorie Malnutrition [ ] Moderate Protein-Calorie Malnutrition [ ] Severe Protein-Calorie Malnutrition [ ] Malnutrition, unknown severity [ ] Other condition, please specify [ ] Unable to Determine (Template Last Revised: May 2023) MTDD
--- NOTE | 2023-09-02 01:25 | PN ---
PROGRESS NOTE ADDENDUM: Chronic systolic and diastolic heart failure, severe protein-calorie malnutrition. MMODL / IJN: [id number] /
== END 2023-08-31 04:04 | disposition expired | DRG 643 ==
LOC: EC 13:48 → SUPCPDRO 13:48 → 3SCARD 16:00 → 2SICU 21:20 → 5NMEDONC 08-19 17:52
PROVIDERS: ADMIT Family Medicine; ATTEND Family Medicine
PROC: 3E033XZ Introduction of Vasopressor into Peripheral Vein, Percutaneous Approach (ICD-10-PCS; 2023-08-17)
PROC: 009U3ZX Drainage of Spinal Canal, Percutaneous Approach, Diagnostic (ICD-10-PCS; principal; 2023-08-26)
PROC: 0DJ08ZZ Inspection of Upper Intestinal Tract, Via Natural or Artificial Opening Endoscopic (ICD-10-PCS; 2023-08-27)
DX: E22.2 Syndrome of inappropriate secretion of antidiuretic hormone (principal); E10.10 Type 1 diabetes mellitus with ketoacidosis without coma; J96.21 Acute and chronic respiratory failure with hypoxia; G93.41 Metabolic encephalopathy; I26.93 Single subsegmental thrombotic pulmonary embolism without acute cor pulmonale; E43 Unspecified severe protein-calorie malnutrition; R64 Cachexia; C78.01 Secondary malignant neoplasm of right lung; L03.311 Cellulitis of abdominal wall; C79.31 Secondary malignant neoplasm of brain; C34.11 Malignant neoplasm of upper lobe, right bronchus or lung; I50.42 Chronic combined systolic (congestive) and diastolic (congestive) heart failure; E10.649 Type 1 diabetes mellitus with hypoglycemia without coma; J84.112 Idiopathic pulmonary fibrosis; I27.20 Pulmonary hypertension, unspecified; E10.51 Type 1 diabetes mellitus with diabetic peripheral angiopathy without gangrene; E10.42 Type 1 diabetes mellitus with diabetic polyneuropathy; I11.0 Hypertensive heart disease with heart failure; J43.9 Emphysema, unspecified; Z79.4 Long term (current) use of insulin; Z51.5 Encounter for palliative care; Z66 Do not resuscitate; T38.1X6A Underdosing of thyroid hormones and substitutes, initial encounter; T18.118A Gastric contents in esophagus causing other injury, initial encounter; D63.8 Anemia in other chronic diseases classified elsewhere; H70.93 Unspecified mastoiditis, bilateral; R54 Age-related physical debility; B02.9 Zoster without complications; E03.9 Hypothyroidism, unspecified; E78.5 Hyperlipidemia, unspecified; I45.10 Unspecified right bundle-branch block; E86.0 Dehydration; K59.09 Other constipation; I95.1 Orthostatic hypotension; R33.9 Retention of urine, unspecified; T38.3X1A Poisoning by insulin and oral hypoglycemic [antidiabetic] drugs, accidental (unintentional), initial encounter; M19.90 Unspecified osteoarthritis, unspecified site; I25.10 Atherosclerotic heart disease of native coronary artery without angina pectoris; G89.4 Chronic pain syndrome; Z95.828 Presence of other vascular implants and grafts; Z87.891 Personal history of nicotine dependence; Z91.148 Patient's other noncompliance with medication regimen for other reason; I25.2 Old myocardial infarction; Z99.81 Dependence on supplemental oxygen; Z80.1 Family history of malignant neoplasm of trachea, bronchus and lung; Z86.711 Personal history of pulmonary embolism; Z86.73 Personal history of transient ischemic attack (TIA), and cerebral infarction without residual deficits; Z87.11 Personal history of peptic ulcer disease; Z95.5 Presence of coronary angioplasty implant and graft; Z79.891 Long term (current) use of opiate analgesic; Z79.899 Other long term (current) drug therapy; Z79.890 Hormone replacement therapy; Z79.82 Long term (current) use of aspirin; Z79.02 Long term (current) use of antithrombotics/antiplatelets; Z92.21 Personal history of antineoplastic chemotherapy; Z92.3 Personal history of irradiation; Z86.14 Personal history of Methicillin resistant Staphylococcus aureus infection; Z96.82 Presence of neurostimulator; Z68.23 Body mass index [BMI] 23.0-23.9, adult; Z28.310 Unvaccinated for COVID-19; Z74.01 Bed confinement status
CPT/HCPCS: 36415; 43235; 62270; 70450; 70460; 71046; 71275; 80048; 80053; 81003; 82024; 82570; 82728; 82945; 83540; 83550; 83690; 83930; 83935; 84295; 84300; 84439; 84443; 84484; 85025; 85027; 85045; 85610; 85730; 87040; 87070; 87205; 88108; 89050; 93005; 93306; 94640; 94760; 96361; 96374; 96376; 99291